=== PATIENT | female | born 1960 | race Caucasian/White ===

== ENCOUNTER 2020-06-23 11:04 | Outpatient (REF) | payer OTHER, SELFPAY | END 2020-06-23 11:05 | disposition home or self-care (01) | LOC: HO.LAB 11:04 | PROVIDERS: Visit Provider Internal Medicine | DX: Z20.828 Contact with and (suspected) exposure to other viral communicable diseases (principal) | CPT/HCPCS: 87635 ==

== ENCOUNTER 2020-07-01 21:53 | Emergency (ER) | payer OTHER, SELFPAY ==
[2020-07-01 22:06] VITALS: BP 121/74; PULSE 94; RESP 16; TEMP 37.1; O2SAT 99; BMI 24.9
--- NOTE | 2020-07-01 22:10 | ED.NAVMDI ---
HPI - Nausea/Vomiting/Diarrhea General Chief complaint: Nausea/Vomiting/Diarrhea Stated complaint: UNABLE TO EAT WITHOUT VOMITING,ETOH Time Seen by Provider: 07/01/20 22:10 Source: patient and EMS Mode of arrival: EMS Limitations: no limitations History of Present Illness MD elicited complaint: nausea, vomiting, diarrhea and abdominal pain Pertinent past history: other (chronic ETOH) Onset (ago): month(s) (2) Description of vomiting: watery Associated nausea: Yes Associated abdominal pain: Yes Location of pain: epigastric Radiation: epigastric Pain consistency: constant Severity: moderate Quality: cramping Exacerbating factors: vomiting Relieving factors: none Context: alcohol abuse Associated symptoms: myalgias, loss of appetite, malaise, nausea/vomiting, weakness, decreased urine output and anxiety Related Data Previous Rx's Medication Instructions Recorded metoprolol succinate 25 mg 25 mg PO DAILY 90 Days #90 tab 06/11/20 tablet,extended release 24 hr Allergies Allergy/AdvReac Type Severity Reaction Status Date / Time No Known Allergies Allergy Verified 07/01/20 22:09 [No Known Allergies*] Review of Systems Review of Systems: Constitutional : No Weight loss, No Fever, No Chills ENT/Mouth : No sore throat, No Rhinorrhea Eyes: No Swelling, No Redness Cardiovascular : No Chest Pain, No SOB, NoEdema Respiratory : No Cough, No Sputum, No Wheezing Gastrointestinal : Positive Nausea, Positive Vomiting, positive Diarrhea, positive abdominal Pain, No Hematochezia, No Melena Genitourinary : No Dysuria, No Urinary Frequency, No Hematuria, No Urgency Musculoskeletal : No joint pain, No Myalgias, No Joint Swelling Skin : No Skin Lesions, No rash Neuro : No Weakness, No Numbness, No Dizziness, No Headache Psych : pos Anxiety/Panic, pos Depression Heme/Lymph: No Bruising, No Lymphadenopathy Endocrine : No Polyuria, No Polydipsia All other systems reviewed and are negative. Gastrointestinal: Gastrointestinal: Reports nausea PMFSH Past Medical History Medical History Anxiety CHF (congestive heart failure) ETOH abuse Social History Social History (Updated 07/01/20 @ 22:18 by Mandi Armijo DO) Alcohol intake: current Use of substances other than those prescribed or required for medical reasons: No Advance Directives: No Advance Directives Information Provided: Yes Physical Exam Vital Signs: Vital Signs: Vital Signs Temp Pulse Resp BP Pulse Ox 07/01/20 23:43 98.9 F 80 16 108/54 L 99 07/01/20 22:06 98.8 F 94 16 121/74 99 Body Mass Index 24.9 Appearance: Alert. Oriented X3. No acute distress. Disheveled, appears intoxicated Eyes: Pupils equal, round and reactive to light. ENT: Pharynx normal. Neck: Normal inspection. Neck supple. CVS: Normal heart rate and rhythm. Pulses normal. Respiratory: No respiratory distress. Breath sounds normal. Abdomen: Soft and nontender. Skin: Skin warm and dry. Normal skin color. Normal skin turgor. Extremities: No lower extremity edema. No calf ttp Neuro: Oriented X 3. No motor deficit. No sensory deficit. Course Course Course Narrative: + ETOH also the patient refuses CT scan, unsure she wants detox at this time likely patient will not go to detox steady gait, clinically sober, refuses further workup does not want detox at this time, states she wants to go home and when she is ready she will call detox, she is up and walking tolerating PO MDM - Nausea/Vomiting/Diarrhea MDM Narrative Medical decision making narrative: 59 yo female with heavy ETOH abuse here with c/o n/v diarrhea and abdominal pain with weight loss x 2 months, unsure if she wants detox I dont want to fully stop alcohol at this time will need labs, CT scan for mass, IVF, banana bag, dispo per results and findings. Lab Data Result diagrams: 07/01/20 22:35 07/01/20 22:35 Labs: Lab Results 07/01/20 07/01/20 07/01/20 Range/Units 22:35 22:35 22:35 WBC 5.6 (4.8-10.8) X10*3/uL RBC 4.10 L (4.20-5.50) X10*6/uL Hgb 14.7 (12.0-16.0) g/dl Hct 41.9 (37-47) % MCV 102.2 H (80-98) fL MCH 35.9 H (27.0-33.0) pg MCHC 35.1 H (31.0-35.0) g/dl RDW 12.2 (11.0-16.0) % Plt Count 165 (160-400) X10*3/uL MPV 10.1 (9.4-12.3) fL Immature Gran % (Auto) 0.2 (0.0-0.4) % Neut % (Auto) 57.4 (45-73) % Lymph % (Auto) 34.3 (20-40) % [place] % (Auto) 6.5 (2-11) % Eos % (Auto) 1.1 (0-4) % Baso % (Auto) 0.5 (0-2) % Lymph # (Auto) 1.9 (1.2-4.9) X10*3/uL [place] # (Auto) 0.4 (0.1-1.2) X10*3/uL Eos # (Auto) 0.1 (0.0-0.4) X10*3/uL Baso # (Auto) 0.0 (0.0-0.2) X10*3/uL Abs Immat Gran (auto) 0.01 (0.00-0.03) X10*3/uL Absolute Neuts (auto) 3.2 (2.0-8.3) X10*3/uL Absolute Nucleated RBC 0.000 (0.0-0.012) X10*3/uL Nucleated RBC % (auto) 0.0 (0.0-0.2) /100WBC PT 12.7 (10.8-13.0) SEC INR 1.1 (0.9-1.1) APTT 26.7 (24.1-38.0) SEC Sodium 137 (135-145) mmol/L Potassium 3.4 (3.3-5.1) mmol/l Chloride 104 (96-108) mmol/L Carbon Dioxide 18 L (22-29) mmol/L Anion Gap 18 (12-20) BUN 7 L (9-16) mg/dL Creatinine 0.68 (0.5-1.4) mg/dL Estim Creat Clear Calc 82.1 Estimated GFR > 60 Random Glucose 191 H (60-115) mg/dL Calcium 8.9 (8.4-10.2) mg/dL Magnesium Total Bilirubin Direct Bilirubin AST ALT Alkaline Phosphatase Total Protein Albumin Lipase Ethyl Alcohol mg/dL 07/01/20 07/01/20 07/01/20 Range/Units 22:35 22:35 23:42 WBC (4.8-10.8) X10*3/uL RBC (4.20-5.50) X10*6/uL Hgb (12.0-16.0) g/dl Hct (37-47) % MCV (80-98) fL MCH (27.0-33.0) pg MCHC (31.0-35.0) g/dl RDW (11.0-16.0) % Plt Count (160-400) X10*3/uL MPV (9.4-12.3) fL Immature Gran % (Auto) (0.0-0.4) % Neut % (Auto) (45-73) % Lymph % (Auto) (20-40) % [place] % (Auto) (2-11) % Eos % (Auto) (0-4) % Baso % (Auto) (0-2) % Lymph # (Auto) (1.2-4.9) X10*3/uL [place] # (Auto) (0.1-1.2) X10*3/uL Eos # (Auto) (0.0-0.4) X10*3/uL Baso # (Auto) (0.0-0.2) X10*3/uL Abs Immat Gran (auto) (0.00-0.03) X10*3/uL Absolute Neuts (auto) (2.0-8.3) X10*3/uL Absolute Nucleated RBC (0.0-0.012) X10*3/uL Nucleated RBC % (auto) (0.0-0.2) /100WBC PT (10.8-13.0) SEC INR (0.9-1.1) APTT (24.1-38.0) SEC Sodium (135-145) mmol/L Potassium (3.3-5.1) mmol/l Chloride (96-108) mmol/L Carbon Dioxide (22-29) mmol/L Anion Gap (12-20) BUN (9-16) mg/dL Creatinine (0.5-1.4) mg/dL Estim Creat Clear Calc Estimated GFR Random Glucose (60-115) mg/dL Calcium (8.4-10.2) mg/dL Magnesium Cancelled Total Bilirubin Cancelled 0.8 Direct Bilirubin Cancelled 0.5 AST Cancelled 229 H ALT Cancelled 79 H Alkaline Phosphatase Cancelled 112 Total Protein Cancelled 6.1 L Albumin Cancelled 3.6 Lipase Cancelled Ethyl Alcohol 214 mg/dL 07/01/20 Range/Units 23:42 WBC (4.8-10.8) X10*3/uL RBC (4.20-5.50) X10*6/uL Hgb (12.0-16.0) g/dl Hct (37-47) % MCV (80-98) fL MCH (27.0-33.0) pg MCHC (31.0-35.0) g/dl RDW (11.0-16.0) % Plt Count (160-400) X10*3/uL MPV (9.4-12.3) fL Immature Gran % (Auto) (0.0-0.4) % Neut % (Auto) (45-73) % Lymph % (Auto) (20-40) % [place] % (Auto) (2-11) % Eos % (Auto) (0-4) % Baso % (Auto) (0-2) % Lymph # (Auto) (1.2-4.9) X10*3/uL [place] # (Auto) (0.1-1.2) X10*3/uL Eos # (Auto) (0.0-0.4) X10*3/uL Baso # (Auto) (0.0-0.2) X10*3/uL Abs Immat Gran (auto) (0.00-0.03) X10*3/uL Absolute Neuts (auto) (2.0-8.3) X10*3/uL Absolute Nucleated RBC (0.0-0.012) X10*3/uL Nucleated RBC % (auto) (0.0-0.2) /100WBC PT (10.8-13.0) SEC INR (0.9-1.1) APTT (24.1-38.0) SEC Sodium (135-145) mmol/L Potassium (3.3-5.1) mmol/l Chloride (96-108) mmol/L Carbon Dioxide (22-29) mmol/L Anion Gap (12-20) BUN (9-16) mg/dL Creatinine (0.5-1.4) mg/dL Estim Creat Clear Calc Estimated GFR Random Glucose (60-115) mg/dL Calcium (8.4-10.2) mg/dL Magnesium 2.4 Total Bilirubin Direct Bilirubin AST ALT Alkaline Phosphatase Total Protein Albumin Lipase 140 H Ethyl Alcohol mg/dL ECG Data Attestation: I personally reviewed and interpreted this ECG as follows: ECG interpretation date: 07/01/20 ECG interpretation time: 22:43 Interpretation: Rate: 80 Rhythm: NSR [place]: normal Normal P waves. Normal MED. Normal QRS complex. ST T wave : normal qTC: normal prior studies: no acute ischemia The study has been interpreted contemporaneously by me. . Discharge Plan Discharge Clinical Impression: Alcohol abuse, Elevated LFTs, Vomiting Patient Disposition: Home, Self-Care Instructions: Acute Nausea and Vomiting (ED), Abuse of Alcohol (ED) Additional Instructions: please consider going to detox Prescriptions: No Action metoprolol succinate 25 mg tablet extended release 24 hr 25 mg PO DAILY 90 Days Qty: 90 RF: 4 Referrals: Physician,Unknown [Primary Care Provider] - 2 days (call your doctor)
--- NOTE | 2020-07-01 22:12 | ECG_ITS ---
Test Reason : ABDOMINAL PAIN Blood Pressure : / mmHG Vent. Rate : 080 BPM Atrial Rate : 080 BPM P-R Int : 168 ms QRS Dur : 072 ms QT Int : 370 ms P-R-T Axes : 027 012 036 degrees QTc Int : 426 ms Normal sinus rhythm Possible Left atrial enlargement Nonspecific T wave abnormality Anterior leads Abnormal ECG When compared with ECG of 29-OCT-2019 02:26, Nonspecific T wave abnormality now evident in Anterior leads Referred By: Mandi Armijo Electronically Signed By:EZEQUIEL LOPEZ MD
[2020-07-01 22:40] LABS: MANUAL DIFF FLAG NO
--- NOTE | 2020-07-01 22:40 | PC.NURSE ---
pharmacy called to mix banana bag
[2020-07-01 22:42] LABS: Basophils Percent Auto 0.5 % (0-2); Eosinophils Absolute Auto 0.1 X10*3/uL (0.0-0.4); Eosinophils Percent Auto 1.1 % (0-4); Hematocrit 41.9 % (37-47); Hemoglobin 14.7 g/dl (12.0-16.0); Imm Gran Abs Auto 0.01 X10*3/uL (0.00-0.03); Imm Gran Pct Auto 0.2 % (0.0-0.4); Lymphocytes Absolute Auto 1.9 X10*3/uL (1.2-4.9); Lymphocytes Percent Auto 34.3 % (20-40); Mean Corpuscular HGB Conc 35.1 g/dl (31.0-35.0); Mean Corpuscular Hemoglobin 35.9 pg (27.0-33.0); Mean Corpuscular Volume 102.2 fL (80-98); Mean Platelet Volume 10.1 fL (9.4-12.3); Monocytes Absolute Auto 0.4 X10*3/uL (0.1-1.2); Monocytes Percent Auto 6.5 % (2-11); Neutrophils Absolute Auto 3.2 X10*3/uL (2.0-8.3); Neutrophils Percent Auto 57.4 % (45-73); Platelet Count 165 X10*3/uL (160-400); Red Cell Distribution Width 12.2 % (11.0-16.0); White Blood Count 5.6 X10*3/uL (4.8-10.8)
[2020-07-01] MEDS: ondansetron HCL 4 MG/2 ML VIAL IVPUSH (22:45)
[2020-07-01] MEDS: 0.9 % Sodium Chloride 1,000 ML 999 ML IVCONT (22:45)
[2020-07-01] MEDS: Magnesium Sulfate/H2O 2 GM/50 ML PIGGYBACK IV (22:45)
[2020-07-01 22:55] LABS: INTERNATIONAL NORM RATIO 1.1 (0.9-1.1); Prothrombin Time 12.7 SEC (10.8-13.0)
[2020-07-01 22:58] LABS: Partial Thromboplastin Time 26.7 SEC (24.1-38.0)
[2020-07-01 23:08] LABS: Ethanol 214 mg/dL
[2020-07-01 23:09] LABS: Anion Gap 18 (12-20); Blood Urea Nitrogen 7 mg/dL (9-16); Calcium 8.9 mg/dL (8.4-10.2); Carbon Dioxide 18 mmol/L (22-29); Chloride 104 mmol/L (96-108); Creatinine Clr Calc Pharmacy 82.1; Estimated Glomerular Filt Rate > 60; Glucose Random 191 mg/dL (60-115); Potassium 3.4 mmol/l (3.3-5.1); Sodium 137 mmol/L (135-145)
[2020-07-01 23:43] VITALS: BP 108/54; PULSE 80; RESP 16; TEMP 37.2; O2SAT 99
[2020-07-02 00:25] LABS: Alanine Aminotransferase 79 U/L (0-31); Albumin Level 3.6 g/dL (3.5-5.0); Alkaline Phosphatase 112 U/L (39-117); Aspartate Amino Transferase 229 U/L (5-31); Bilirubin Direct 0.5 mg/dL (0.0-0.5); Bilirubin Total 0.8 mg/dL (0.0-1.0); Total Protein 6.1 g/dL (6.5-8.0)
[2020-07-02 00:27] LABS: Magnesium 2.4 mg/dL (1.6-2.6)
[2020-07-02 00:55] LABS: Lipase 140 U/L (8-78)
== END 2020-07-02 01:24 | disposition home or self-care (01) ==
PROVIDERS: Emergency Provider Emergency Medicine
DX: F10.129 Alcohol abuse with intoxication, unspecified (principal); Y90.7 Blood alcohol level of 200-239 mg/100 ml; R79.89 Other specified abnormal findings of blood chemistry; Z79.899 Other long term (current) drug therapy
CPT/HCPCS: 36415; 80048; 80076; 80320; 83690; 83735; 85025; 85610; 85730; 93005; 96365; 96366; 96375; 99284; J2405; J3411; J3475

== ENCOUNTER 2020-07-03 17:25 | Emergency (ER) | payer OTHER, SELFPAY ==
[2020-07-03 17:43] VITALS: BP 125/77; PULSE 99; RESP 13; TEMP 36.8; O2SAT 97; BMI 26.2
[2020-07-03 17:51] VITALS: BP 125/77; PULSE 104; PULSE 99; RESP 17; TEMP 36.8; O2SAT 97
--- NOTE | 2020-07-03 17:52 | ECG_ITS ---
Test Reason : CHEST PAIN Blood Pressure : / mmHG Vent. Rate : 089 BPM Atrial Rate : 089 BPM P-R Int : 160 ms QRS Dur : 066 ms QT Int : 386 ms P-R-T Axes : 045 024 035 degrees QTc Int : 469 ms Normal sinus rhythm Nonspecific ST abnormality Abnormal ECG When compared with ECG of 01-JUL-2020 22:36, No significant changes seen Referred By: Sergio Rodgers Electronically Signed By:EZEQUIEL LOPEZ MD
--- NOTE | 2020-07-03 17:52 | XR_ITS ---
EXAMINATION: XR CHEST CLINICAL INFORMATION: Chest pain COMPARISON: 12/18/2018 TECHNIQUE: Frontal view of the chest was obtained. FINDINGS: No significant abnormality is noted involving the heart, lungs, mediastinum, bony thorax or soft tissues. XR/XR chest 1V IMPRESSION: Unremarkable examination.
--- NOTE | 2020-07-03 17:52 | CT_ITS ---
EXAMINATION: CT ABDOMEN AND PELVIS WITH CONTRAST CLINICAL INFORMATION: Abdominal pain. COMPARISON: CT scan abdomen pelvis 10/29/2019 TECHNIQUE: Multidetector volumetric images were obtained from the superior aspect of the liver through the pubic symphysis following administration 85 mL ofOmnipaque 350 intravenous contrast. Sagittal and coronal reformatted images were obtained on the technologist's workstation. Oral contrast: No This CT examination was performed using dose optimization techniques as appropriate, variously including the following: *Automated exposure control *Adjustment of mA and/or kV according to patient size (this includes techniques or standardized protocols for targeted exams where dose is matched to indication/reason for exam; i.e. extremities or head) *Use of iterative reconstruction technique DLP: 410 mGy-cm FINDINGS: LUNG BASES: The visualized lung bases are unremarkable. LIVER, GALLBLADDER, AND BILIARY TREE: Mild low-attenuation of liver parenchyma due to fatty change. No focal liver lesion. No intrahepatic bile duct dilatation. The gallbladder is contracted. No edema around the gallbladder. The extrahepatic CBD measures 7 mm. No calcified stone in the gallbladder or bile ducts. PANCREAS: Unremarkable. SPLEEN: Unremarkable. ADRENAL GLANDS: Unremarkable. KIDNEYS AND URETERS: The kidneys are normal in size, shape, and attenuation. No hydronephrosis, hydroureter, or calculi seen. No perinephric stranding. BLADDER: Unremarkable. GASTROINTESTINAL TRACT: The small and large bowel are unremarkable. The appendix is unremarkable. ABDOMINAL WALL: No significant hernia is appreciated. LYMPH NODES: Normal. VASCULAR: Unremarkable. PELVIC VISCERA: Status post hysterectomy. OSSEOUS STRUCTURES: Unremarkable. CT/CT abdomen pelvis w con IMPRESSION: No acute abnormality the abdomen or pelvis.
--- NOTE | 2020-07-03 17:55 | ED.ABDPAIN ---
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 she has been having upper abdominal pain with nausea vomiting for the past couple of weeks for which she was here 2 days ago. States she felt better and nausea vomiting restarted and about 1 hour ago had an episode of epigastric / left-sided chest pain that was brief lasting several minutes and described as sharp stabbing. She denies any LOC or URI symptoms. Initially during triage she states that she has been sober for several years now but later in my discussion she admitted to drinking wine today which she states that drinking wine does make her nauseated but eating other foods will. No lower extremity swelling or shortness of breath. No cough. No recent travel or sick contacts. MD elicited complaint: abdominal pain Pertinent past history: gastritis Pain Consistency: intermittent Location: epigastric Quality: cramping Migration to: no migration Exacerbating factors: eating Relieving factors: nothing Associated symptoms: nausea and vomiting Related Data Previous Rx's Medication Instructions Recorded metoprolol succinate 25 mg 25 mg PO DAILY 90 Days #90 tab 06/11/20 tablet,extended release 24 hr chlordiazepoxide HCl 25 mg PO Q8H PRN #10 cap 07/03/20 omeprazole magnesium [Prilosec OTC] 20 mg PO DAILY #14 tab 07/03/20 ondansetron HCl [Zofran] 4 mg PO Q8H PRN #10 tab 07/03/20 Allergies Allergy/AdvReac Type Severity Reaction Status Date / Time No Known Allergies Allergy Verified 07/01/20 22:09 [No Known Allergies*] Review of Systems Review of Systems Constitutional: No Weight loss, No Fever, No Chills, No Night Sweats, No Fatigue, No Malaise ENT/Mouth: No Hearing loss, No Ear Pain, No Nasal Congestion, No Sinus Pain, No Hoarseness, No sore throat, No Rhinorrhea, No Swallowing Difficulty Eyes: No Eye Pain, No Swelling, No Redness, No Foreign Body, No Discharge, No Vision Changes Cardiovascular: + Chest Pain, No SOB, No Dyspnea on Exertion, No Orthopnea, No Edema, No Palpitations Respiratory: No Cough, No Sputum, No Wheezing, No Smoke Exposure, No Dyspnea Gastrointestinal: As noyted per HPI,No Diarrhea, No Constipation, No Hematochezia, No Melena , states she had a formed stool this morning that was brown color. Genitourinary: no irregular bleeding, No Dysuria, No Urinary Frequency, No Hematuria, No Urinary Incontinence, No Urgency, No Flank Pain, No Urinary Flow Changes, No Hesitancy Musculoskeletal: No joint pain, No Myalgias, No Joint Swelling Skin: No Skin Lesions, No rash Neuro: No Weakness, No Numbness, No Paresthesias, No Loss of Consciousness, No Dizziness, No Headache Psych: No Anxiety/Panic, No Depression, No SI/HI/AH/VH, No Social Issues Heme/Lymph: No Bruising, No Bleeding,No Lymphadenopathy Endocrine: No Polyuria, No Polydipsia, No Temperature Intolerance Yes all other systems are reviewed and are negative Physical Exam Vital Signs: Vital Signs: Vital Signs Temp Pulse Resp BP Pulse Ox 07/03/20 17:51 98.2 F 99 17 125/77 97 07/03/20 17:43 98.2 F 99 13 125/77 97 Body Mass Index 26.2 Reviewed Const: General: cooperative and healthy appearing; No acute distress or intoxicated appearing Nutritional Appearance: average body habitus Orientation/consciousness: patient oriented x3 HENMT: Head: Yes normal to inspection Ears: hearing grossly normal bilaterally Eyes: General: appearance normal, both eyes and all related structures Visual Dey: normal visual dey by confrontation Neck: Neck: Yes normal visual inspection and No tender Thyroid: Thyroid normal Chest: Chest palpation & inspection: normal inspection of the chest Resp: Effort & Inspection: normal respiratory effort Auscultation: clear to auscultation bilaterally Cardio: Jugular venous distension: no JVD Rhythm: regular rhythm Heart sounds: S1 normal heart sound present GI: Inspection: Yes normal to inspection Percussion: Yes normal to percussion Auscultation: normal bowel sounds : General: Yes no CVA tenderness Back/Spine/Pelvis: Back: no CVA tenderness Skin: General skin exam: no rashes or lesions noted Neuro: General: patient oriented x3 Extrem: General: Yes normal to inspection Psych: Appearance: disheveled Course Course Course Narrative: 180 In review 5-year-old female with above history presenting with epigastric pain with associated nausea vomiting and episode of chest pain roughly 1 hour prior to arrival. Does have history of alcohol abuse / alcoholic gastritis I suspect component of this. Does not appear intoxicated does admit to drinking earlier in the day. Will need labs, EKG and CT of abdomen rule out pancreatitis/obstructive pathology. Will treat with IV fluids, antiemetics and p.r.n. for withdrawal symptoms at this time she does not have any withdrawal symptoms. Reevaluation(s) Reevaluation #1: labs overall stable. Has been resting comfortably. Feels much better after IV fluids and 1 dose of Zofran no further nausea vomiting for complaint of pain here. Labs essentially at baseline abdominal CT / chest x-ray without acute findings. AP consistent with atypical chest pain/ alcoholic gastritis with history of EtOH abuse was more forthcoming on re-evaluation. States she is trying to get into detox called and was advised to call later on today that may have a bed available the this evening. She states she has been to detox before she does not need any further assistance at this time. 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 Will discharge home with short course PPI, Zofran and Librium. Clear return follow-up instructions provided. Agreeable plan stable for discharge. MDM - Abdominal Pain Differential Diagnosis Differential diagnosis: Likely abdominal pain, diverticulitis, gastroenteritis, gastritis, pancreatitis and peptic ulcer disease; Unlikely aortic dissection, acute appendicitis, bowel perforation, calculus of kidney, constipation, endometriosis, mesenteric ischemia, ovarian cyst, renal colic and small bowel obstruction Medical Records Attestation: I reviewed the patient's medical records. Lab Data Attestation: I reviewed the patient's lab results. Result diagrams: 07/03/20 18:51 07/03/20 18:51 Labs: Lab Results 07/03/20 07/03/20 07/03/20 Range/Units 18:51 18:51 18:51 WBC 4.0 L (4.8-10.8) X10*3/uL RBC 4.12 L (4.20-5.50) X10*6/uL Hgb 14.6 (12.0-16.0) g/dl Hct 42.3 (37-47) % MCV 102.7 H (80-98) fL MCH 35.4 H (27.0-33.0) pg MCHC 34.5 (31.0-35.0) g/dl RDW 12.0 (11.0-16.0) % Plt Count 129 L (160-400) X10*3/uL MPV 10.0 (9.4-12.3) fL Immature Gran % (Auto) 0.2 (0.0-0.4) % Neut % (Auto) 71.8 (45-73) % Lymph % (Auto) 20.3 (20-40) % [place] % (Auto) 6.2 (2-11) % Eos % (Auto) 0.5 (0-4) % Baso % (Auto) 1.0 (0-2) % Lymph # (Auto) 0.8 L (1.2-4.9) X10*3/uL [place] # (Auto) 0.3 (0.1-1.2) X10*3/uL Eos # (Auto) 0.0 (0.0-0.4) X10*3/uL Baso # (Auto) 0.0 (0.0-0.2) X10*3/uL Abs Immat Gran (auto) 0.01 (0.00-0.03) X10*3/uL Absolute Neuts (auto) 2.9 (2.0-8.3) X10*3/uL Absolute Nucleated RBC 0.000 (0.0-0.012) X10*3/uL Nucleated RBC % (auto) 0.0 (0.0-0.2) /100WBC PT 12.8 (10.8-13.0) SEC INR 1.1 (0.9-1.1) APTT 35.6 D (24.1-38.0) SEC Sodium (135-145) mmol/L Potassium (3.3-5.1) mmol/l Chloride (96-108) mmol/L Carbon Dioxide (22-29) mmol/L Anion Gap (12-20) BUN (9-16) mg/dL Creatinine (0.5-1.4) mg/dL Estim Creat Clear Calc Estimated GFR Random Glucose (60-115) mg/dL Calcium (8.4-10.2) mg/dL Magnesium (1.6-2.6) mg/dL Total Bilirubin (0.0-1.0) mg/dL AST (5-31) U/L ALT (0-31) U/L Alkaline Phosphatase (39-117) U/L Troponin I High Sens (<3.5-17.0) ng/L B-Natriuretic Peptide 58 (<100) pg/mL Total Protein (6.5-8.0) g/dL Albumin (3.5-5.0) g/dL Lipase (8-78) U/L Ethyl Alcohol mg/dL 07/03/20 07/03/20 07/03/20 Range/Units 18:51 18:51 18:51 WBC (4.8-10.8) X10*3/uL RBC (4.20-5.50) X10*6/uL Hgb (12.0-16.0) g/dl Hct (37-47) % MCV (80-98) fL MCH (27.0-33.0) pg MCHC (31.0-35.0) g/dl RDW (11.0-16.0) % Plt Count (160-400) X10*3/uL MPV (9.4-12.3) fL Immature Gran % (Auto) (0.0-0.4) % Neut % (Auto) (45-73) % Lymph % (Auto) (20-40) % [place] % (Auto) (2-11) % Eos % (Auto) (0-4) % Baso % (Auto) (0-2) % Lymph # (Auto) (1.2-4.9) X10*3/uL [place] # (Auto) (0.1-1.2) X10*3/uL Eos # (Auto) (0.0-0.4) X10*3/uL Baso # (Auto) (0.0-0.2) X10*3/uL Abs Immat Gran (auto) (0.00-0.03) X10*3/uL Absolute Neuts (auto) (2.0-8.3) X10*3/uL Absolute Nucleated RBC (0.0-0.012) X10*3/uL Nucleated RBC % (auto) (0.0-0.2) /100WBC PT (10.8-13.0) SEC INR (0.9-1.1) APTT (24.1-38.0) SEC Sodium 141 (135-145) mmol/L Potassium 3.5 (3.3-5.1) mmol/l Chloride 106 (96-108) mmol/L Carbon Dioxide 21 L (22-29) mmol/L Anion Gap 18 (12-20) BUN 5 L (9-16) mg/dL Creatinine 0.68 (0.5-1.4) mg/dL Estim Creat Clear Calc 80.9 Estimated GFR > 60 Random Glucose 107 D (60-115) mg/dL Calcium 9.0 (8.4-10.2) mg/dL Magnesium (1.6-2.6) mg/dL Total Bilirubin 1.3 H (0.0-1.0) mg/dL AST 146 H (5-31) U/L ALT 77 H (0-31) U/L Alkaline Phosphatase 123 H (39-117) U/L Troponin I High Sens < 3.5 (<3.5-17.0) ng/L B-Natriuretic Peptide (<100) pg/mL Total Protein 7.5 D (6.5-8.0) g/dL Albumin 4.4 D (3.5-5.0) g/dL Lipase (8-78) U/L Ethyl Alcohol 12 mg/dL 07/03/2007/03/ Range/Units 18:51 18:51 WBC (4.8-10.8) X10*3/uL RBC (4.20-5.50) X10*6/uL Hgb (12.0-16.0) g/dl Hct (37-47) % MCV (80-98) fL MCH (27.0-33.0) pg MCHC (31.0-35.0) g/dl RDW (11.0-16.0) % Plt Count (160-400) X10*3/uL MPV (9.4-12.3) fL Immature Gran % (Auto) (0.0-0.4) % Neut % (Auto) (45-73) % Lymph % (Auto) (20-40) % [place] % (Auto) (2-11) % Eos % (Auto) (0-4) % Baso % (Auto) (0-2) % Lymph # (Auto) (1.2-4.9) X10*3/uL [place] # (Auto) (0.1-1.2) X10*3/uL Eos # (Auto) (0.0-0.4) X10*3/uL Baso # (Auto) (0.0-0.2) X10*3/uL Abs Immat Gran (auto) (0.00-0.03) X10*3/uL Absolute Neuts (auto) (2.0-8.3) X10*3/uL Absolute Nucleated RBC (0.0-0.012) X10*3/uL Nucleated RBC % (auto) (0.0-0.2) /100WBC PT (10.8-13.0) SEC INR (0.9-1.1) APTT (24.1-38.0) SEC Sodium (135-145) mmol/L Potassium (3.3-5.1) mmol/l Chloride (96-108) mmol/L Carbon Dioxide (22-29) mmol/L Anion Gap (12-20) BUN (9-16) mg/dL Creatinine (0.5-1.4) mg/dL Estim Creat Clear Calc Estimated GFR Random Glucose (60-115) mg/dL Calcium (8.4-10.2) mg/dL Magnesium 1.7 (1.6-2.6) mg/dL Total Bilirubin (0.0-1.0) mg/dL AST (5-31) U/L ALT (0-31) U/L Alkaline Phosphatase (39-117) U/L Troponin I High Sens (<3.5-17.0) ng/L B-Natriuretic Peptide (<100) pg/mL Total Protein (6.5-8.0) g/dL Albumin (3.5-5.0) g/dL Lipase 73 (8-78) U/L Ethyl Alcohol mg/dL Discharge Plan Discharge Clinical Impression: Atypical chest pain, Alcohol abuse Gastritis Qualifiers: Gastritis type: alcoholic Chronicity: chronic Gastritis bleeding: without bleeding Qualified Code(s): K29.20 - Alcoholic gastritis without bleeding Patient Disposition: Home, Self-Care Instructions: Chest Pain (ED), Gastritis (ED), Abuse of Alcohol (ED), Alcohol Use Disorder (ED) Additional Instructions: please go directly to detox as discussed Stop drinking alcohol regularly as an cause serious harm to health including but not limited to Take medication prescribed Return if any concerns or worsening symptoms otherwise follow up as instructed Thank you Prescriptions: New ondansetron HCl [Zofran] 4 mg tablet 4 mg PO Q8H PRN (Reason: nausea and vomiting) Qty: 10 RF: 0 omeprazole magnesium [Prilosec OTC] 20 mg tablet,delayed release (DR/EC) 20 mg PO DAILY Qty: 14 RF: 0 chlordiazepoxide HCl 25 mg capsule 25 mg PO Q8H PRN (Reason: anxiety) Qty: 10 RF: 0 No Action metoprolol succinate 25 mg tablet extended release 24 hr 25 mg PO DAILY 90 Days Qty: 90 RF: 4 Referrals: Le Haddad DO [Primary Care Provider] - 2 days [facility] Past Medical History Attestation statement: The following information was validated with the patient. Medical History Anxiety CHF (congestive heart failure) ETOH abuse Social History Social History (Updated 07/01/20 @ 22:18 by Mandi Armijo DO) Alcohol intake: current Alcohol intake frequency: 3 or more drinks per day Alcohol type: wine Smoked in Last 30 Days: No Use of substances other than those prescribed or required for medical reasons: No Substance Use Type: Unknown Advance Directives: No Advance Directives Information Provided: Yes
[2020-07-03 19:03] LABS: Eosinophils Percent Auto 0.5 % (0-4); Hematocrit 42.3 % (37-47); Hemoglobin 14.6 g/dl (12.0-16.0); Imm Gran Abs Auto 0.01 X10*3/uL (0.00-0.03); Imm Gran Pct Auto 0.2 % (0.0-0.4); Lymphocytes Absolute Auto 0.8 X10*3/uL (1.2-4.9); Lymphocytes Percent Auto 20.3 % (20-40); MANUAL DIFF FLAG NO; Mean Corpuscular HGB Conc 34.5 g/dl (31.0-35.0); Mean Corpuscular Hemoglobin 35.4 pg (27.0-33.0); Mean Corpuscular Volume 102.7 fL (80-98); Monocytes Absolute Auto 0.3 X10*3/uL (0.1-1.2); Monocytes Percent Auto 6.2 % (2-11); Neutrophils Absolute Auto 2.9 X10*3/uL (2.0-8.3); Neutrophils Percent Auto 71.8 % (45-73); Platelet Count 129 X10*3/uL (160-400); Red Blood Count 4.12 X10*6/uL (4.20-5.50)
[2020-07-03 19:10] LABS: INTERNATIONAL NORM RATIO 1.1 (0.9-1.1); Prothrombin Time 12.8 SEC (10.8-13.0)
[2020-07-03 19:12] LABS: Partial Thromboplastin Time 35.6 SEC (24.1-38.0)
[2020-07-03] MEDS: ondansetron HCL 4 MG/2 ML VIAL IVPUSH (19:33)
[2020-07-03 19:39] LABS: Ethanol 12 mg/dL; Magnesium 1.7 mg/dL (1.6-2.6)
[2020-07-03 19:45] LABS: B Type Natriuretic Peptide 58 pg/mL (<100)
[2020-07-03 19:46] LABS: Lipase 73 U/L (8-78)
[2020-07-03 19:50] LABS: Alanine Aminotransferase 77 U/L (0-31); Albumin Level 4.4 g/dL (3.5-5.0); Alkaline Phosphatase 123 U/L (39-117); Anion Gap 18 (12-20); Aspartate Amino Transferase 146 U/L (5-31); Bilirubin Total 1.3 mg/dL (0.0-1.0); Blood Urea Nitrogen 5 mg/dL (9-16); Carbon Dioxide 21 mmol/L (22-29); Chloride 106 mmol/L (96-108); Creatinine Clr Calc Pharmacy 80.9; Estimated Glomerular Filt Rate > 60; Glucose Random 107 mg/dL (60-115); Potassium 3.5 mmol/l (3.3-5.1); Sodium 141 mmol/L (135-145); Total Protein 7.5 g/dL (6.5-8.0)
[2020-07-03 19:52] LABS: Troponin-I High Sensitivity < 3.5 ng/L (<3.5-17.0)
[2020-07-03] MEDS: iohexoL 350 MG/ML 100 ML INFUS..BTL IV (20:35)
== END 2020-07-03 22:02 | disposition home or self-care (01) ==
PROVIDERS: Nurse Practitioner Primary Care; Emergency Provider Internal Medicine; PCP Family Medicine
DX: K29.20 Alcoholic gastritis without bleeding (principal); R10.13 Epigastric pain; F10.10 Alcohol abuse, uncomplicated; Y90.0 Blood alcohol level of less than 20 mg/100 ml; Z79.899 Other long term (current) drug therapy; Z71.41 Alcohol abuse counseling and surveillance of alcoholic
CPT/HCPCS: 36415; 71045; 74177; 80053; 80320; 83690; 83735; 83880; 84484; 85025; 85610; 85730; 93005; 96374; 99284; J2405; Q9967

== ENCOUNTER → 2020-09-29 13:59 | Outpatient (BNVA) | payer OTHER, SELFPAY | PROVIDERS: PCP Family Medicine; Visit Provider Internal Medicine Gastroenterology | DX: K20.90 Esophagitis, unspecified without bleeding (principal) | CPT/HCPCS: Q3014 ==

== ENCOUNTER → 2021-01-22 09:53 | Outpatient (BNVA) | payer OTHER, SELFPAY | PROVIDERS: PCP Family Medicine; Visit Provider Internal Medicine Gastroenterology | CPT/HCPCS: Q3014 ==

== ENCOUNTER 2022-03-22 10:49 | Outpatient (REF) | payer OTHER, SELFPAY ==
--- NOTE | ~2022-03-22 | MM_ITS ---
EXAMINATION: MM SCREENING DIGITAL BREAST TOMOSYNTHESIS, BILATERAL CLINICAL INFORMATION: Screening. Asymptomatic. The lifetime risk of breast cancer based on the Tyrer-Cuzick Model is 8%. COMPARISON: Mammography: May 24, 2018, May 28, 2019, and studies dating back to January 23, 2014 TECHNIQUE: Digital breast tomosynthesis is performed in both the craniocaudal and mediolateral oblique views along with computer-aided detection (CAD). Synthesized 2D images are generated from the tomosynthesis. FINDINGS: There are scattered areas of fibroglandular density (ACR BI-RADS breast composition Category b). There are no significant masses, abnormal calcifications, or other abnormalities. MM/MM tomosynthesis screening BI IMPRESSION: There are no significant changes from prior study. ASSESSMENT: BI-RADS 1: Negative RECOMMENDATION: Routine annual mammography screening. This patient's information was entered into a reminder system with a target due date for their next mammogram.
== END 2022-03-22 10:50 | disposition home or self-care (01) ==
LOC: HO.MAMMO 10:49
PROVIDERS: Visit Provider Family Medicine
DX: Z12.31 Encounter for screening mammogram for malignant neoplasm of breast (principal)
CPT/HCPCS: 77063; 77067

== ENCOUNTER → 2022-04-05 13:06 | Outpatient (BNVA) | payer OTHER, SELFPAY | PROVIDERS: PCP Family Medicine; Visit Provider Physician Assistant | DX: M54.16 Radiculopathy, lumbar region (principal) | CPT/HCPCS: 99202 ==

== ENCOUNTER 2022-05-01 21:42 | Inpatient (IN) | payer OTHER, SELFPAY ==
--- NOTE | ~2022-05-01 | CT_ITS ---
EXAMINATION: CT ABDOMEN AND PELVIS WITHOUT CONTRAST CLINICAL INFORMATION: Upper abdominal pain, question pancreatitis COMPARISON: 07/03/2020 TECHNIQUE: Multidetector volumetric imaging was performed from the superior aspect of the liver through the pubic symphysis. Sagittal and coronal reformatted images were obtained on the technologist's workstation. This CT examination was performed using dose optimization techniques as appropriate, variously including the following: *Automated exposure control *Adjustment of mA and/or kV according to patient size (this includes techniques or standardized protocols for targeted exams where dose is matched to indication/reason for exam; i.e. extremities or head) *Use of iterative reconstruction technique DLP: 447 mGy-cm FINDINGS: LUNG BASES: The visualized lung bases are unremarkable. LIVER, GALLBLADDER, AND BILIARY TREE: The liver demonstrates mild hypoattenuation suspicious for steatosis. No focal hepatic lesion or biliary ductal dilatation is present. The gallbladder is unremarkable with no evidence of radiopaque gallstones, gallbladder wall thickening, or obvious pericholecystic inflammatory changes. PANCREAS: Unremarkable. SPLEEN: Unremarkable. ADRENAL GLANDS: Unremarkable. KIDNEYS AND URETERS: The kidneys are normal in size, shape, and attenuation. No hydronephrosis, hydroureter, or calculi seen. No perinephric stranding. BLADDER: Unremarkable. GASTROINTESTINAL TRACT: Small hiatal hernia is present. Assessment for wall thickening throughout the colon is limited due to luminal collapse, though no significant pericolonic stranding is seen to strongly suggest a colitis. The appendix is unremarkable. No free fluid or free air is seen. ABDOMINAL WALL: No significant hernia is appreciated. LYMPH NODES: Normal. VASCULAR: Mild atherosclerotic calcification. PELVIC VISCERA: Status post hysterectomy. OSSEOUS STRUCTURES: Mild scattered endplate osteophytes are noted in the spine. CT/CT abdomen pelvis wo con IMPRESSION: No acute findings identified in the abdomen/pelvis. No evidence of pancreatitis. Small hiatal hernia.
--- NOTE | ~2022-05-01 | XR_ITS ---
EXAMINATION: XR CHEST CLINICAL INFORMATION: Chest pain COMPARISON: Chest x-ray 07/03/2020 TECHNIQUE: Frontal view of the chest was obtained. FINDINGS: The lungs are clear. No airspace consolidation, pleural effusion, or pneumothorax. The cardiomediastinal silhouette is within normal limits. No acute osseous injury. XR/XR chest 1V IMPRESSION: No acute pulmonary process.
[2022-05-01 21:51] VITALS: BP 174/99; BP 193/91; PULSE 71; PULSE 88; RESP 18; O2SAT 98; O2SAT 99; BMI 24.0
--- NOTE | 2022-05-01 21:59 | ECG_ITS ---
Test Reason : CHEST PAIN Blood Pressure : / mmHG Vent. Rate : 100 BPM Atrial Rate : 100 BPM P-R Int : 132 ms QRS Dur : 066 ms QT Int : 338 ms P-R-T Axes : 070 029 043 degrees QTc Int : 436 ms Normal sinus rhythm Nonspecific ST abnormality Abnormal ECG When compared with ECG of 03-JUL-2020 20:51, Criteria for Anterior infarct are no longer Present Referred By: Generic ED Physician Electronically Signed By:CARRIE OGLESBY
[2022-05-01 22:01] VITALS: BP 193/91; PULSE 80; PULSE 82; RESP 20; O2SAT 99
--- NOTE | 2022-05-01 22:18 | ED.ABDPAIN ---
HPI - Abdominal Pain General Chief Complaint: Chest Pain Stated Complaint: Vomiting Time Seen by Provider: 05/01/22 22:17 Source: patient Mode of arrival: EMS Limitations: no limitations History of Present Illness HPI narrative: Patient is 61 years old alcoholic been complaining of upper abdominal pain for last 2 weeks with multiple times vomiting worse today also had few loose bowel movements patient never had similar pain in the past no fever no chills no urinary complaints no shortness of breath patient drinks a bottle of wine a day last drink was yesterday no history of DTs in the past Related Data Home Medications Medication Instructions Recorded Confirmed cyanocobalamin (vitamin B-12) 1,000 mcg PO DAILY 09/29/20 09/29/20 1,000 mcg tablet folic acid 1 mg tablet 1 mg PO DAILY 09/29/20 09/29/20 hydroxyzine pamoate 50 mg capsule 50 mg PO BID PRN anxiety 09/29/20 09/29/20 thiamine HCl (vitamin B1) 100 mg 100 mg PO DAILY 09/29/20 09/29/20 tablet venlafaxine 75 mg capsule,extended 75 mg PO DAILY 09/29/20 09/29/20 release 24 hr Previous Rx's Medication Instructions Recorded metoprolol succinate 25 mg 25 mg PO DAILY 90 days #90 tabs 06/11/20 tablet,extended release 24 hr chlordiazepoxide HCl 25 mg capsule 25 mg PO Q8H PRN anxiety #10 caps 07/03/20 omeprazole magnesium 20 mg 20 mg PO DAILY #14 tabs 07/03/20 tablet,delayed release (Prilosec OTC) ondansetron HCl 4 mg tablet 4 mg PO Q8H PRN nausea and 07/03/20 (Zofran) vomiting #10 tabs guaifenesin 600 mg tablet, 600 mg PO BID #60 tabs 01/22/21 extended release 12 hr (Mucinex) sucralfate 100 mg/mL oral 10 ml PO BID #420 mL 01/22/21 suspension (Carafate) pantoprazole 40 mg tablet,delayed 40 mg PO BID #60 tabs 04/21/21 release albuterol sulfate 90 mcg/actuation 1 puff PO QID #18 grams 07/22/21 aerosol inhaler (Ventolin HFA) ondansetron 4 mg disintegrating 4 mg PO Q8H PRN for 08/03/21 tablet nausea/vomiting #60 tabs Allergies Allergy/AdvReac Type Severity Reaction Status Date / Time No Known Allergies Allergy Verified 01/22/21 09:53 [No Known Allergies*] Review of Systems Review of Systems Yes all other systems are reviewed and are negative [facility] Past Medical History Medical History Anxiety CHF (congestive heart failure) ETOH abuse Multinodular thyroid Surgical History History of esophagogastroduodenoscopy (EGD) Hx of colonoscopy Hx of hysterectomy Family History Family History Mother Cancer Father No problems noted. Social History Social History Household Members: Friend(s) Alcohol intake: current Alcohol intake frequency: 3 or more drinks per day Alcohol type: wine Patient Tobacco Use Status: Never used Tobacco Use of substances other than those prescribed or required for medical reasons: No Substance Use Type: Unknown Advance Directives: Yes Advance Directives on File: Yes Advance Directives Date on File: 06/26/17 Patient : No Current occupational status: disabled Physical Exam ED Vital Signs: Vital Signs - 24 hr 05/01/22 21:51 05/01/22 22:01 05/02/22 00:19 Pulse Rate 71 80 89 Respiratory Rate 18 20 18 Blood Pressure 193/91 H 193/91 H 195/98 H Pulse Oximetry 98 99 100 Oxygen Delivery Method Room Air Room Air BMI result Body Mass Index 24.0 Appearance: Alert. Oriented X3. In moderate distress Eyes: PERRLA, No Nystagmus ENT: Pharynx normal. Oral Mucosa moist Neck: Normal inspection. Neck supple. CVS: Normal heart rate and rhythm. Pulses normal. Respiratory: No respiratory distress. Equal air entry bilateral, no wheezing/rales/rhonchi Abdomen: Soft tender to touch and epigastric mid abdomen area with guarding no rebound tenderness r. Bowel sounds are present, no mass palpable, no CVA tenderness Skin: Skin warm and dry. Normal skin color. Normal skin turgor. Extremities: No lower extremity edema. No calf tenderness Neuro: Oriented X 3. No motor deficit. MDM - Abdominal Pain MDM Narrative Medical decision making narrative: Patient intractable vomiting with chronic alcohol abuse in alcohol withdrawal CT scan abdomen is negative will admit patient for alcohol withdrawal intractable vomiting with alcoholic ketoacidosis with lactic acidosis secondary to alcohol use will admit patient for IV hydration and symptomatic treatment for withdrawal using phenobarb and Versed, lactic acidosis type B not from sepsis after hydration repeat lactic acid was 1.8 Differential Diagnosis Differential diagnosis: Likely abdominal pain, gastritis and pancreatitis Lab Data Attestation: I reviewed the patient's lab results. Result diagrams: 05/01/22 22:26 05/02/22 01:01 Labs: Lab Results 05/01/22 05/01/22 05/01/22 Range/Units 22:26 22: 22:26 WBC 7.4 (4.8-10.8) X10*3/uL RBC 4.79 (4.20-5.50) X10*6/uL Hgb 15.8 (12.0-16.0) g/dl Hct 44.5 (37.0-47.0) % MCV 92.9 (80.0-98.0) fL MCH 33.0 (27.0-33.0) pg MCHC 35.5 H (31.0-35.0) g/dl RDW 12.8 (11.0-16.0) % Plt Count 227 (160-400) X10*3/uL MPV 10.0 (9.4-12.3) fL Immature Gran % (Auto) 0.8 H (0.0-0.4) % Neut % (Auto) 79.8 H (45-73) % Lymph % (Auto) 12.0 L (20-40) % [place] % (Auto) 6.6 (2-11) % Eos % (Auto) 0.0 (0-4) % Baso % (Auto) 0.8 (0-2) % Lymph # (Auto) 0.9 L (1.2-4.9) X10*3/uL [place] # (Auto) 0.5 (0.1-1.2) X10*3/uL Eos # (Auto) 0.0 (0.0-0.4) X10*3/uL Baso # (Auto) 0.1 (0.0-0.2) X10*3/uL Abs Immat Gran (auto) 0.06 H (0.00-0.03) X10*3/uL Absolute Neuts (auto) 5.9 (2.0-8.3) x10*3/uL Absolute Nucleated RBC 0.000 (0.0-0.012) X10*3/uL Nucleated RBC % (auto) 0.0 (0.0-0.2) /100WBC D-Dimer High Sensitivty NG/ML Sodium (135-145) mmol/L Potassium (3.3-5.1) mmol/L Chloride (96-108) mmol/L Carbon Dioxide (22-29) mmol/L Anion Gap (12-20) BUN (9-16) mg/dL Creatinine (0.5-1.4) mg/dL Estim Creat Clear Calc Estimated GFR Random Glucose (60-115) mg/dL Lactic Acid 4.0 H* (0.5-2.0) mmol/L Lactic Acid F/U @ 2Hr (0.5-2.0) mmol/L Calcium (8.4-10.2) mg/dL Magnesium (1.6-2.6) mg/dL Total Bilirubin (0.0-1.0) mg/dL Direct Bilirubin (0.0-0.5) mg/dL AST (5-31) U/L ALT (0-31) U/L Alkaline Phosphatase (39-117) U/L Troponin I High Sens 4.5 (<3.5-17.0) ng/L Total Protein (6.5-8.0) g/dL Albumin (3.5-5.0) g/dL Lipase (8-78) U/L Ethyl Alcohol mg/dL COVID-19 ([facility]) (Negative) COVID-19 Clin Com 05/01/22 05/01/22 05/02/22 Range/Units 22:26 22:27 01:01 WBC (4.8-10.8) X10*3/uL RBC (4.20-5.50) X10*6/uL Hgb (12.0-16.0) g/dl Hct (37.0-47.0) % MCV (80.0-98.0) fL MCH (27.0-33.0) pg MCHC (31.0-35.0) g/dl RDW (11.0-16.0) % Plt Count (160-400) X10*3/uL MPV (9.4-12.3) fL Immature Gran % (Auto) (0.0-0.4) % Neut % (Auto) (45-73) % Lymph % (Auto) (20-40) % [place] % (Auto) (2-11) % Eos % (Auto) (0-4) % Baso % (Auto) (0-2) % Lymph # (Auto) (1.2-4.9) X10*3/uL [place] # (Auto) (0.1-1.2) X10*3/uL Eos # (Auto) (0.0-0.4) X10*3/uL Baso # (Auto) (0.0-0.2) X10*3/uL Abs Immat Gran (auto) (0.00-0.03) X10*3/uL Absolute Neuts (auto) (2.0-8.3) x10*3/uL Absolute Nucleated RBC (0.0-0.012) X10*3/uL Nucleated RBC % (auto) (0.0-0.2) /100WBC D-Dimer High Sensitivty 156 NG/ML Sodium 144 (135-145) mmol/L Potassium 3.5 (3.3-5.1) mmol/L Chloride 106 (96-108) mmol/L Carbon Dioxide 21 L (22-29) mmol/L Anion Gap 21 H (12-20) BUN 9 (9-16) mg/dL Creatinine 0.86 (0.5-1.4) mg/dL Estim Creat Clear Calc 58.6 Estimated GFR > 60 Random Glucose 195 H (60-115) mg/dL Lactic Acid (0.5-2.0) mmol/L Lactic Acid F/U @ 2Hr (0.5-2.0) mmol/L Calcium 9.8 D (8.4-10.2) mg/dL Magnesium (1.6-2.6) mg/dL Total Bilirubin (0.0-1.0) mg/dL Direct Bilirubin (0.0-0.5) mg/dL AST (5-31) U/L ALT (0-31) U/L Alkaline Phosphatase (39-117) U/L Troponin I High Sens (<3.5-17.0) ng/L Total Protein (6.5-8.0) g/dL Albumin (3.5-5.0) g/dL Lipase (8-78) U/L Ethyl Alcohol mg/dL COVID-19 ([facility]) Negative (Negative) COVID-19 Clin Com See Note 05/02/22 05/02/22 Range/Units 01:01 01:01 WBC (4.8-10.8) X10*3/uL RBC (4.20-5.50) X10*6/uL Hgb (12.0-16.0) g/dl Hct (37.0-47.0) % MCV (80.0-98.0) fL MCH (27.0-33.0) pg MCHC (31.0-35.0) g/dl RDW (11.0-16.0) % Plt Count (160-400) X10*3/uL MPV (9.4-12.3) fL Immature Gran % (Auto) (0.0-0.4) % Neut % (Auto) (45-73) % Lymph % (Auto) (20-40) % [place] % (Auto) (2-11) % Eos % (Auto) (0-4) % Baso % (Auto) (0-2) % Lymph # (Auto) (1.2-4.9) X10*3/uL [place] # (Auto) (0.1-1.2) X10*3/uL Eos # (Auto) (0.0-0.4) X10*3/uL Baso # (Auto) (0.0-0.2) X10*3/uL Abs Immat Gran (auto) (0.00-0.03) X10*3/uL Absolute Neuts (auto) (2.0-8.3) x10*3/uL Absolute Nucleated RBC (0.0-0.012) X10*3/uL Nucleated RBC % (auto) (0.0-0.2) /100WBC D-Dimer High Sensitivty NG/ML Sodium (135-145) mmol/L Potassium (3.3-5.1) mmol/L Chloride (96-108) mmol/L Carbon Dioxide (22-29) mmol/L Anion Gap (12-20) BUN (9-16) mg/dL Creatinine (0.5-1.4) mg/dL Estim Creat Clear Calc Estimated GFR Random Glucose (60-115) mg/dL Lactic Acid (0.5-2.0) mmol/L Lactic Acid F/U @ 2Hr 1.8 (0.5-2.0) mmol/L Calcium (8.4-10.2) mg/dL Magnesium 3.1 H (1.6-2.6) mg/dL Total Bilirubin 1.4 H (0.0-1.0) mg/dL Direct Bilirubin 0.7 H (0.0-0.5) mg/dL AST 56 H (5-31) U/L ALT 67 H (0-31) U/L Alkaline Phosphatase 111 (39-117) U/L Troponin I High Sens (<3.5-17.0) ng/L Total Protein 8.5 H (6.5-8.0) g/dL Albumin 5.2 H (3.5-5.0) g/dL Lipase 52 (8-78) U/L Ethyl Alcohol < 10 mg/dL COVID-19 ([facility]) (Negative) COVID-19 Clin Com Discharge Plan Discharge Clinical Impression: Intractable vomiting, Acute alcoholic gastritis, Alcoholic ketoacidosis, Acidosis, lactic, Alcohol withdrawal Patient Disposition: Admitted As Inpatient
[2022-05-01] MEDS: ondansetron HCL 4 MG/2 ML VIAL IVPUSH (22:32)
[2022-05-01] MEDS: 0.9 % Sodium Chloride 1,000 ML 999 ML IV (22:32)
[2022-05-01 22:33] LABS: MANUAL DIFF FLAG NO
[2022-05-01 22:41] LABS: Basophils Absolute Auto 0.1 X10*3/uL (0.0-0.2); Basophils Percent Auto 0.8 % (0-2); Hematocrit 44.5 % (37.0-47.0); Hemoglobin 15.8 g/dl (12.0-16.0); Imm Gran Abs Auto 0.06 X10*3/uL (0.00-0.03); Imm Gran Pct Auto 0.8 % (0.0-0.4); Lymphocytes Absolute Auto 0.9 X10*3/uL (1.2-4.9); Mean Corpuscular HGB Conc 35.5 g/dl (31.0-35.0); Mean Corpuscular Volume 92.9 fL (80.0-98.0); Monocytes Absolute Auto 0.5 X10*3/uL (0.1-1.2); Monocytes Percent Auto 6.6 % (2-11); Neutrophils Absolute Auto 5.9 x10*3/uL (2.0-8.3); Neutrophils Percent Auto 79.8 % (45-73); Platelet Count 227 X10*3/uL (160-400); Red Blood Count 4.79 X10*6/uL (4.20-5.50); Red Cell Distribution Width 12.8 % (11.0-16.0); White Blood Count 7.4 X10*3/uL (4.8-10.8)
[2022-05-01 22:48] LABS: D Dimer High Sensitivity 156 NG/ML
[2022-05-01 22:58] LABS: Troponin-I High Sensitivity 4.5 ng/L (<3.5-17.0)
[2022-05-01 23:01] LABS: COVID-19 Test Negative (Negative); IDNOW Serial# 55D5AD1C
[2022-05-01] MEDS: Magnesium Sulfate/H2O 2 GM/50 ML PIGGYBACK IV (23:37)
[2022-05-01] MEDS: Morphine Sulfate 4 MG/ML CARTRIDGE IVPUSH (23:37)
[2022-05-01] MEDS: Famotidine/PF 20 MG/2 ML VIAL IVPUSH (23:37)
[2022-05-02 00:19] VITALS: BP 195/98; PULSE 89; RESP 18; O2SAT 100
[2022-05-02 00:31] LABS: Reflex Lactate? Lactic Acid Added
[2022-05-02 01:18] LABS: ~Lactic Acid-LAB USE ONLY 1.8 mmol/L (0.5-2.0)
[2022-05-02 01:26] LABS: Anion Gap 21 (12-20); Blood Urea Nitrogen 9 mg/dL (9-16); Calcium 9.8 mg/dL (8.4-10.2); Carbon Dioxide 21 mmol/L (22-29); Chloride 106 mmol/L (96-108); Creatinine Clr Calc Pharmacy 58.6; Estimated Glomerular Filt Rate > 60; Glucose Random 195 mg/dL (60-115); Potassium 3.5 mmol/L (3.3-5.1); Sodium 144 mmol/L (135-145)
[2022-05-02 01:28] LABS: Alanine Aminotransferase 67 U/L (0-31); Albumin Level 5.2 g/dL (3.5-5.0); Alkaline Phosphatase 111 U/L (39-117); Aspartate Amino Transferase 56 U/L (5-31); Bilirubin Direct 0.7 mg/dL (0.0-0.5); Bilirubin Total 1.4 mg/dL (0.0-1.0); Ethanol < 10 mg/dL; Lipase 52 U/L (8-78); Magnesium 3.1 mg/dL (1.6-2.6); Total Protein 8.5 g/dL (6.5-8.0)
[2022-05-02] MEDS: Dextrose 5 % and 0.45 % NaCl 1,000 ML 250 ML IVCONT ×3 (01:28→23:16)
--- NOTE | 2022-05-02 02:06 | PM.IMHP ---
History of Present Illness Date of Service: 05/02/22 Chief Complaint: nausea vomiting 61-year-old female with past medical history of alcohol abuse, CHF, anxiety, history of esophagitis, presents to the hospital with complaints of nausea and vomiting for the past few days. Patient currently sleeping, arousable, answers questions appropriately. She reports epigastric pain, nausea vomiting for the past few days with no blood in vomit, no diarrhea constipation, Patient reports that she has not been taking care of herself, she has been bed-bound for 3 weeks being depressed and self loathing Over the of her about a year ago. She reports that she is on Antidepressant but does not seem to be helping. she reports that she does feel like she is withdrawing, she drinks 1 bottle of Wine or more daily from when she wakes up to when she goes to bed. she denies any fever or chills, no chest pain, no shortness of breath, no headache or change in vision, no urinary symptoms and no lower extremity edema On arrival to the ED patient hemodynamically stable with no significant abnormal vitals except for slightly elevated blood pressure labs are significant for WBC count of 5.8, lactic acid of 4.0, magnesium of 3.1, total bili of 1.4, direct bili of 0.7, AST of 57, ALT of 67, lipase of [address] shows no acute findings in the abdomen or pelvis, no evidence of pancreatitis S patient was being evaluated and waiting in the ED she did starts withdrawing, patient was started on phenobarb, currently appears comfortable Review of Systems Review of Systems: Yes all other systems are reviewed and are negative [facility] Medical History Anxiety CHF (congestive heart failure) ETOH abuse Multinodular thyroid Family History Mother Cancer Father No problems noted. Surgical History History of esophagogastroduodenoscopy (EGD) Hx of colonoscopy Hx of hysterectomy Social History Household Members: Friend(s) Alcohol intake: current Alcohol intake frequency: 3 or more drinks per day Alcohol type: wine Patient Tobacco Use Status: Never used Tobacco Use of substances other than those prescribed or required for medical reasons: No Substance Use Type: Unknown Advance Directives: Yes Advance Directives on File: Yes Advance Directives Date on File: 06/26/17 Patient : No Current occupational status: disabled Meds Allergies Allergy/AdvReac Type Severity Reaction Status Date / Time No Known Allergies Allergy Verified 01/22/21 09:53 [No Known Allergies*] Active Medications: Current Medications Dextrose/Sodium Chloride (D51/2ns) 1,000 mls @ 250 mls/hr IVCONT .Q4H [facility] Last Admin: 05/02/22 01:28 Dose: 250 mls/hr Pharmacy Consult (Consult Rx Etoh Phenob Im/Po) 600 each MISCELLANE ONCE ONE; Protocol Stop: 05/02/22 01:49 Home Medications Medication Instructions Recorded Confirmed Last Taken Type cyanocobalamin (vitamin B-12) 1,000 mcg PO DAILY 09/29/20 09/29/20 Unknown History 1,000 mcg tablet folic acid 1 mg tablet 1 mg PO DAILY 09/29/20 09/29/20 Unknown History hydroxyzine pamoate 50 mg capsule 50 mg PO BID PRN anxiety 09/29/20 09/29/20 Unknown History thiamine HCl (vitamin B1) 100 mg 100 mg PO DAILY 09/29/20 09/29/20 Unknown History tablet venlafaxine 75 mg capsule,extended 75 mg PO DAILY 09/29/20 09/29/20 Unknown History release 24 hr Physical Exam Vital Signs and Narrative: Vital Signs: Last Vital Signs Pulse 89 05/02/22 00:19 Resp 18 05/02/22 00:19 BP 195/98 H 05/02/22 00:19 Pulse Ox 100 05/02/22 00:19 O2 Del Method 05/01/22 22:01 BMI result Body Mass Index 24.0 Const: General: cooperative and no acute distress Orientation/consciousness: patient oriented x3 Eyes: General: appearance normal, both eyes and all related structures Resp: Effort & Inspection: normal respiratory effort Auscultation: clear to auscultation bilaterally Cardio: Rate: regular rate Rhythm: regular rhythm GI: Other: abdomen is soft, nontender, no rebound or guarding Palpation (GI): Soft to palpation Auscultation: normal bowel sounds Skin: General skin exam: no rashes or lesions noted Neuro: General: patient oriented x3 Cognition (Neuro): normal cognition Extrem: General: Yes normal to inspection and Yes no pedal edema Results Labs CBC and Chem 7: 05/02/22 04:57 05/02/22 04:57 Labs: Laboratory Results - last 24 hr 05/01/22 05/01/22 05/01/22 22:26 22:26 22:26 MCV 92.9 MCH 33.0 MCHC 35.5 H RDW 12.8 Plt Count 227 MPV 10.0 Immature Gran % (Auto) 0.8 H Neut % (Auto) 79.8 H Lymph % (Auto) 12.0 L [place] % (Auto) 6.6 Eos % (Auto) 0.0 Baso % (Auto) 0.8 Lymph # (Auto) 0.9 L [place] # (Auto) 0.5 Eos # (Auto) 0.0 Baso # (Auto) 0.1 Abs Immat Gran (auto) 0.06 H Absolute Neuts (auto) 5.9 Absolute Nucleated RBC 0.000 Nucleated RBC % (auto) 0.0 D-Dimer High Sensitivty Anion Gap Estim Creat Clear Calc Estimated GFR Random Glucose Lactic Acid 4.0 H* Lactic Acid F/U @ 2Hr Calcium Magnesium Total Bilirubin Direct Bilirubin AST ALT Alkaline Phosphatase Total Protein Albumin Lipase Ethyl Alcohol COVID-19 ([facility]) Negative COVID-19 Clin Com See Note 05/01/22 05/02/22 05/02/22 22:27 01:01 01:01 MCV MCH MCHC RDW Plt Count MPV Immature Gran % (Auto) Neut % (Auto) Lymph % (Auto) [place] % (Auto) Eos % (Auto) Baso % (Auto) Lymph # (Auto) [place] # (Auto) Eos # (Auto) Baso # (Auto) Abs Immat Gran (auto) Absolute Neuts (auto) Absolute Nucleated RBC Nucleated RBC % (auto) D-Dimer High Sensitivty 156 Anion Gap 21 H Estim Creat Clear Calc 58.6 Estimated GFR > 60 Random Glucose 195 H Lactic Acid Lactic Acid F/U @ 2Hr Calcium 9.8 D Magnesium 3.1 H Total Bilirubin 1.4 H Direct Bilirubin 0.7 H AST 56 H ALT 67 H Alkaline Phosphatase 111 Total Protein 8.5 H Albumin 5.2 H Lipase 52 Ethyl Alcohol < 10 COVID-19 ([facility]) COVID-19 Clin Com 05/02/22 01:01 MCV MCH MCHC RDW Plt Count MPV Immature Gran % (Auto) Neut % (Auto) Lymph % (Auto) [place] % (Auto) Eos % (Auto) Baso % (Auto) Lymph # (Auto) [place] # (Auto) Eos # (Auto) Baso # (Auto) Abs Immat Gran (auto) Absolute Neuts (auto) Absolute Nucleated RBC Nucleated RBC % (auto) D-Dimer High Sensitivty Anion Gap Estim Creat Clear Calc Estimated GFR Random Glucose Lactic Acid Lactic Acid F/U @ 2Hr 1.8 Calcium Magnesium Total Bilirubin Direct Bilirubin AST ALT Alkaline Phosphatase Total Protein Albumin Lipase Ethyl Alcohol COVID-19 ([facility]) COVID-19 Clin Com Imaging Radiologist's Impressions: Impressions Chest X-Ray 05/01/22 22:52 IMPRESSION: No acute pulmonary process. Abdomen/Pelvis CT 05/01/22 23:19 IMPRESSION: No acute findings identified in the abdomen/pelvis. No evidence of pancreatitis. Small hiatal hernia. Assessment and Plan (1) Intractable vomiting: Status: Acute (2) Acute alcoholic gastritis: Status: Acute (3) Acidosis, lactic: Status: Acute (4) Alcohol withdrawal: Status: Acute Plan 61-year-old female with past medical history of alcohol abuse presents to the hospital with complaints of nausea vomiting as well as epigastric pain # intractable nausea vomiting - likely secondary to alcoholic gastritis versus gastroenteritis - CT abdomen pelvis negative, no evidence of pancreatitis, lipase normal - will treat with supportive measure, will start on PPI b.i.d. given her history of alcohol abuse - antiemetic , IV fluids # acute alcoholic ketoacidosis - elevated lactic acid - no evidence of acute infection - will treat with IV fluids - lactic acid resolved # alcohol abuse with alcohol withdrawal - start on phenobarb protocol in the ED - will treat with thiamine and folic acid supplement - monitor withdrawal symptoms DVT prophylaxis: Lovenox given patient's intractable nausea vomiting, as well as acute alcohol withdrawal patient will require minimum 2 night hospital stay for further management and monitoring Quality Stroke Does the patient have a stroke diagnosis?: No VTE Prior VTE?: No VTE Risk Level:: Medical - moderate - high VTE Device Contraindication: Treatment Not Indicated VTE Drug Contraindication: N/A - Med Ordered
[2022-05-02] MEDS: Midazolam HCl/PF 2 MG/2 ML VIAL IVPUSH (02:25)
[2022-05-02] MEDS: Prochlorperazine Edisylate 10 MG/2 ML VIAL IVPUSH (02:25)
[2022-05-02 02:28] VITALS: BP 181/103; PULSE 78; RESP 20; O2SAT 94
--- NOTE | 2022-05-02 02:35 | PC.NURSE ---
Pt refused vitamin B and folic acid. Pt is intermittently vomiting and does not want to put more pills in her stomach than she has to. She took the phenobarbital with no complications so far.
[2022-05-02] MEDS: Enoxaparin Sodium 40 MG/0.4 ML SYRINGE SUBCUT (02:42)
--- NOTE | 2022-05-02 03:47 | PC.NURSE ---
Addendum entered by Radha Mo RN 05/02/22 06:27: Dr Pérez instructed to start LR when first bolus of D5+0.45 was finished. Hung LR and it is running at 100mL/hr. Held the next ordered administration of D5+0.45 Original Note: D5 +0.45 running at this time with about 2 hours left in the bag. There are orders for both D5+0.45 and lactated ringers. I have messaged the hospitalist for clarifications on which med to proceed with. Continuing with D5+0.45 at 250mL/hr and waiting for a response at this time.
[2022-05-02 05:01] LABS: Basophils Percent Auto 0.3 % (0-2); Hemoglobin 13.1 g/dl (12.0-16.0); Imm Gran Abs Auto 0.03 X10*3/uL (0.00-0.03); Imm Gran Pct Auto 0.5 % (0.0-0.4); Lymphocytes Absolute Auto 0.8 X10*3/uL (1.2-4.9); Lymphocytes Percent Auto 13.5 % (20-40); MANUAL DIFF FLAG NO; Mean Corpuscular HGB Conc 35.4 g/dl (31.0-35.0); Mean Corpuscular Hemoglobin 33.5 pg (27.0-33.0); Mean Corpuscular Volume 94.6 fL (80.0-98.0); Mean Platelet Volume 9.9 fL (9.4-12.3); Monocytes Absolute Auto 0.5 X10*3/uL (0.1-1.2); Monocytes Percent Auto 8.1 % (2-11); Neutrophils Absolute Auto 4.5 x10*3/uL (2.0-8.3); Neutrophils Percent Auto 77.6 % (45-73); Platelet Count 182 X10*3/uL (160-400); Red Blood Count 3.91 X10*6/uL (4.20-5.50); White Blood Count 5.8 X10*3/uL (4.8-10.8)
[2022-05-02 05:28] LABS: Anion Gap 18 (12-20); Blood Urea Nitrogen 9 mg/dL (9-16); Calcium 8.6 mg/dL (8.4-10.2); Carbon Dioxide 22 mmol/L (22-29); Chloride 103 mmol/L (96-108); Creatinine Clr Calc Pharmacy 53.6; Estimated Glomerular Filt Rate > 60; Glucose Random 309 mg/dL (60-115); Potassium 3.5 mmol/L (3.3-5.1); Sodium 139 mmol/L (135-145)
[2022-05-02] MEDS: Lactated Ringers 1,000 ML 100 ML IVCONT ×2 (05:48→12:58)
[2022-05-02 05:53] VITALS: BP 130/62; PULSE 73; RESP 18
[2022-05-02] MEDS: Omeprazole 40 MG CAPSULE.DR PO ×2 (06:54→17:44)
[2022-05-02 07:14] VITALS: BP 114/53; PULSE 69; RESP 20; TEMP 36.8; O2SAT 94
--- NOTE | 2022-05-02 07:43 | PHA.MEDREC ---
Pharmacy Consult ? Medication Reconciliation Pharmacy has completed the medication reconciliation.
[2022-05-02] MEDS: Thiamine HCL 100 MG TABLET PO (08:21)
[2022-05-02] MEDS: Folic Acid 1 MG TABLET PO (08:21)
--- NOTE | 2022-05-02 11:44 | MHC.CM.PN ---
IMM ADDRESSED, ORIGINAL TO PATIENT (LEFT AT BEDSIDE); COPY TO CHART PATIENT LIVES WITH FRIENDS IS INDEPENDENT AT HOME AND COMMUNITY DENIES USE OF DME OR RECEIVING HOME SERVICES [facility]ORGE [employer]LEY[employer] X3 PCP: STEPHANIE HOLCOMB EDUCATED ON HCP/DECLINED TO COMPLETE AT THIS TIME FRIEND WILL TRANSPORT D/C PLAN: HOME SELF-CARE vs CARE TEAM RECOMMENDATIONS
--- NOTE | 2022-05-02 14:24 | PM.EVENT ---
Event Note Date of Service: 05/02/22 Event Note: chart reviewed/patient examined. More comfortable than admit. Tolerating phenobarb protocol without seizures. Agree with plan as outlined
--- NOTE | 2022-05-02 16:05 | PC.NURSE ---
report given to nayely
[2022-05-02 17:26] VITALS: BP 146/67; PULSE 91; RESP 15; TEMP 36.8; O2SAT 99
[2022-05-02 20:00] VITALS: BP 128/60; PULSE 86; RESP 14; TEMP 37.2; O2SAT 99
[2022-05-02] MEDS: PHENobarbitaL 15 MG TABLET 45 MG PO (20:45)
[2022-05-03] VITALS: BP 168/80; PULSE 79; RESP 18; TEMP 36.4; O2SAT 100
[2022-05-03] MEDS: Enoxaparin Sodium 40 MG/0.4 ML SYRINGE SUBCUT (02:21)
[2022-05-03 03:55] VITALS: BP 161/84; PULSE 70; RESP 18; TEMP 36.5; O2SAT 98
[2022-05-03] MEDS: Dextrose 5 % and 0.45 % NaCl 1,000 ML 250 ML IVCONT ×5 (04:01→22:32)
[2022-05-03] MEDS: Omeprazole 40 MG CAPSULE.DR PO (05:50)
[2022-05-03] MEDS: ondansetron HCL 4 MG/2 ML VIAL IVPUSH ×2 (05:50→15:24)
[2022-05-03 05:53] LABS: MANUAL DIFF FLAG NO
[2022-05-03 05:58] LABS: Basophils Percent Auto 0.6 % (0-2); Eosinophils Absolute Auto 0.1 X10*3/uL (0.0-0.4); Eosinophils Percent Auto 1.3 % (0-4); Hematocrit 36.3 % (37.0-47.0); Hemoglobin 12.7 g/dl (12.0-16.0); Imm Gran Abs Auto 0.01 X10*3/uL (0.00-0.03); Imm Gran Pct Auto 0.2 % (0.0-0.4); Mean Corpuscular Hemoglobin 33.3 pg (27.0-33.0); Mean Corpuscular Volume 95.3 fL (80.0-98.0); Mean Platelet Volume 10.2 fL (9.4-12.3); Monocytes Absolute Auto 0.5 X10*3/uL (0.1-1.2); Neutrophils Absolute Auto 2.5 x10*3/uL (2.0-8.3); Neutrophils Percent Auto 48.9 % (45-73); Platelet Count 166 X10*3/uL (160-400); Red Blood Count 3.81 X10*6/uL (4.20-5.50); Red Cell Distribution Width 12.7 % (11.0-16.0); White Blood Count 5.2 X10*3/uL (4.8-10.8)
[2022-05-03 06:24] LABS: Alanine Aminotransferase 40 U/L (0-31); Albumin Level 3.9 g/dL (3.5-5.0); Alkaline Phosphatase 75 U/L (39-117); Anion Gap 14 (12-20); Aspartate Amino Transferase 35 U/L (5-31); Bilirubin Total 1.2 mg/dL (0.0-1.0); Blood Urea Nitrogen 7 mg/dL (9-16); Calcium 8.2 mg/dL (8.4-10.2); Carbon Dioxide 25 mmol/L (22-29); Chloride 103 mmol/L (96-108); Creatinine Clr Calc Pharmacy 67.2; Estimated Glomerular Filt Rate > 60; Glucose Fasting 183 mg/dL (60-99); Potassium 3.4 mmol/L (3.3-5.1); Sodium 139 mmol/L (135-145); Total Protein 6.2 g/dL (6.5-8.0)
[2022-05-03] MEDS: PHENobarbitaL 15 MG TABLET 45 MG PO ×2 (07:16→20:46)
[2022-05-03 07:43] VITALS: BP 170/114; PULSE 91; RESP 19; TEMP 36.7; O2SAT 100
--- NOTE | 2022-05-03 10:00 | P.PNIM_ITS ---
Subjective Subjective Date of Service: 05/03/22 Interval History: Upon not alcoholic gastritis, alcohol withdrawal Interval history: Persistent nausea vomiting but no abdominal pain some tremors due to alcohol withdrawal. Review of Systems Nausea vomiting, tremors Physical Exam Vital Signs: Vital Signs: Last Vital Signs Temp 98.1 F 05/03/22 07:43 Pulse 91 05/03/22 07:43 Resp 19 05/03/22 07:43 BP 170/114 H 05/03/22 07:43 Pulse Ox 100 05/03/22 07:43 O2 Del Method 05/03/22 07:43 BMI result Body Mass Index 24.0 General: AO X 3, no acute distress Resp: CTA bilateral CVS: S1,S2,RRR GI: +BS, NT, no distention Skin: No rash Neuro: motor grossly intact, fine tremors in fingers Psych: appropriate affect Objective Data Active Medications Acetaminophen (Acetaminophen 325 Mg Tablet) 650 mg PO Q6H PRN PRN Reason: Pain, Mild (Pain Scale 1-3) Diphenhydramine HCl (Diphenhydramine Hcl 50 Mg/Ml Vial) 25 mg IVPUSH Q6H PRN PRN Reason: Nausea and Vomiting Docusate Sodium (Docusate Sodium 100 Mg Capsule) 100 mg PO DAILY PRN PRN Reason: Constipation Enoxaparin Sodium (Enoxaparin Sodium 40 Mg/0.4 Ml Syringe) 40 mg SUBCUT Q24H [facility] Last Admin: 05/03/22 02:21 Dose: 40 mg Documented By: NICK Famotidine (Famotidine/Pf 20 Mg/2 Ml Vial) 20 mg IVPUSH BID [facility] Folic Acid (Folic Acid 1 Mg Tablet) 1 mg PO DAILY [facility] Last Admin: 05/03/22 07:55 Dose: Not Given Documented By: TERI Non-Admin Reason: Patient Refused Dextrose/Sodium Chloride (D51/2ns) 1,000 mls @ 250 mls/hr IVCONT .Q4H [facility] Last Admin: 05/03/22 07:38 Dose: 250 mls/hr Documented By: PRASHANTH Omeprazole (Omeprazole 40 Mg Capsule.) 40 mg PO BID@0630,1630 [facility] Last Admin: 05/03/22 05:50 Dose: 40 mg Documented By: NICK Ondansetron HCl (Ondansetron Hcl 4 Mg/2 Ml Vial) 4 mg IVPUSH Q8H PRN PRN Reason: Nausea and Vomiting Last Admin: 05/03/22 05:50 Dose: 4 mg Documented By: NICK Phenobarbital (Phenobarbital 15 Mg Tablet) 45 mg PO BID [facility]; Protocol Stop: 05/04/22 09:01 Last Admin: 05/03/22 07:16 Dose: 45 mg Documented By: TERI Phenobarbital (Phenobarbital 15 Mg Tablet) 15 mg PO BID [facility]; Protocol Stop: 05/06/22 09:01 Phenobarbital (Phenobarbital 15 Mg Tablet) 15 mg PO DAILY [facility]; Protocol Stop: 05/07/22 09:01 Sodium Chloride (0.9 % Sodium Chloride Flush 3 Ml Syringe) 3 ml IVFLUSH QSHIFT [facility] Last Admin: 05/03/22 07:20 Dose: Not Given Documented By: TERI Non-Admin Reason: IV Running Thiamine HCl (Thiamine Hcl 100 Mg Tablet) 100 mg PO DAILY [facility] Last Admin: 05/03/22 07:56 Dose: Not Given Documented By: TERI Non-Admin Reason: Patient Refused Labs CBC & Chem 7: 05/03/22 05:13 05/03/22 05:13 Labs: Laboratory Results - last 24 hr 05/03/22 05/03/22 05:13 05:13 MCV 95.3 MCH 33.3 H MCHC 35.0 RDW 12.7 Plt Count 166 MPV 10.2 Immature Gran % (Auto) 0.2 Neut % (Auto) 48.9 Lymph % (Auto) 39.0 [place] % (Auto) 10.0 Eos % (Auto) 1.3 Baso % (Auto) 0.6 Lymph # (Auto) 2.0 [place] # (Auto) 0.5 Eos # (Auto) 0.1 Baso # (Auto) 0.0 Abs Immat Gran (auto) 0.01 Absolute Neuts (auto) 2.5 Absolute Nucleated RBC 0.000 Nucleated RBC % (auto) 0.0 Anion Gap 14 Estim Creat Clear Calc 67.2 Estimated GFR > 60 Fasting Glucose 183 H Calcium 8.2 L Total Bilirubin 1.2 H AST 35 H ALT 40 H Alkaline Phosphatase 75 D Total Protein 6.2 L D Albumin 3.9 D Assessment and Plan (1) Intractable vomiting: Status: Acute (2) Acute alcoholic gastritis: Status: Acute Plan 61-year-old female with past medical history of alcohol abuse presents to the hospital with complaints of nausea vomiting as well as epigastric pain #? intractable nausea vomiting -? likely secondary to alcoholic gastritis versus gastroenteritis -? CT abdomen pelvis negative, no evidence of pancreatitis, lipase normal -? supportive measure, IV pepcid g -? antiemetic (Zofran and Benadryl) ,? IV fluids #? acute alcoholic ketoacidosis--resolved #? alcohol abuse with alcohol withdrawal -? start on phenobarb protocol in the ED -? will treat with thiamine and folic acid supplement -? monitor withdrawal symptoms ?DVT prophylaxis: Lovenox Need for inpatient: ongoing treatment for alcohol withdrawal, alcoholic gastritis and not able to tolerate oral with peristent n/v Quality Stroke Does the patient have a stroke diagnosis?: No VTE Prior VTE?: No VTE Risk Level:: Medical - moderate - high VTE Device Contraindication: Treatment Not Indicated VTE Drug Contraindication: N/A - Med Ordered
--- NOTE | 2022-05-03 10:26 | P.CDIC_ITS ---
CDI Concurrent Query Documentation Clarification: PHYSICIAN'S DOCUMENTATION REQUEST Date of Query: 05/03/22 1029 Patient Name: Nubia Bell Admit Date: 05/02/22 Dear Doctor, A review of the medical record indicates additional documentation may be needed. Please review below and update the documentation accordingly. Clinical Indicators: Risk Factors/Clinical Indicators/Treatments PMH - CHF 05/02 Progress Note - CHF 05/02 Please provide further specificity regarding the most likely type and acuity of CHF you are evaluating, treating, or monitoring. Confirmed, treat, rule-out. Type: * Systolic * Diastolic * Combined Systolic/Diastolic * Other ? please specify * Unable to determine Acuity: * Acute * Chronic * Acute on chronic * Unable to determine Use of terms such as suspected, likely, concern for, or probable (associated with a specific diagnosis that is being evaluated, monitored, or treated as if it exists) are acceptable and can be coded in the inpatient setting, when documented at the time of discharge. Thank you, Christine Ho MS, RN, CCRN Extension: [phone] Please use your independent medical judgment in providing your response. THIS QUERY IS PART OF THE PERMANENT MEDICAL RECORD Provider Response: Other Other Diagnosis: Unable to determine and no active heart failure
[2022-05-03] MEDS: Famotidine/PF 20 MG/2 ML VIAL IVPUSH ×2 (10:28→20:46)
[2022-05-03] MEDS: diphenhydrAMINE HCL 50 MG/ML VIAL 25 MG IVPUSH ×2 (10:28→17:28)
--- NOTE | 2022-05-03 10:36 | P.CDIC_ITS ---
CDI Concurrent Query Documentation Clarification: PHYSICIAN'S DOCUMENTATION REQUEST Date of Query: 05/03/22 1038 Patient Name: Nubia Bell Admit Date: 05/02/22 Dear Doctor, A review of the medical record indicates additional documentation may be needed. Please review below and update the documentation accordingly. Clinical Indicators: The following diagnoses or signs and symptoms were noted in the patient record: Risk Factors/Clinical Indicators/Treatments LABS: Magnesium - 3.1 05/02 Based on the above, could you clarify in the Progress Notes the appropriate diagnosis, if significant, that supports the above abnormalities and additional evaluation, monitoring, and/or treatment rendered: * Hypermagnesemia * Labs indicate a diagnosis of (please specify) * Other (please specify) * Unable to determine Use of terms such as suspected, likely, concern for, or probable (associated with a specific diagnosis that is being evaluated, monitored, or treated as if it exists) are acceptable and can be coded in the inpatient setting, when documented at the time of discharge. Thank you, Christine Ho MS, RN, CCRN Extension: [phone] Please use your independent medical judgment in providing your response. THIS QUERY IS PART OF THE PERMANENT MEDICAL RECORD Provider Response: Other Other Diagnosis: hypermagnesemia
--- NOTE | 2022-05-03 10:45 | P.CDIC_ITS ---
CDI Concurrent Query Documentation Clarification: PHYSICIAN'S DOCUMENTATION REQUEST Date of Query: 05/03/22 1047 Patient Name: Nubia Bell Admit Date: 05/02/22 Dear Doctor, A review of the medical record indicates additional documentation may be needed. Please review below and update the documentation accordingly. Clinical Indicators: Is there a diagnosis that correlates with these lab findings below: Risk Factors/Clinical Indicators/Treatments LABS: Random Glucose - 309 on 05/02 Fasting Glucose - 183 on 05/03 Based on the above, could you clarify in the Progress Notes the appropriate diagnosis, if significant, that supports the above abnormalities and additional evaluation, monitoring, and/or treatment rendered: * Hyperglycemia * Labs indicate a diagnosis of (please specify) * Other (please specify) * Unable to determine Use of terms such as suspected, likely, concern for, or probable (associated with a specific diagnosis that is being evaluated, monitored, or treated as if it exists) are acceptable and can be coded in the inpatient setting, when documented at the time of discharge. Thank you, Christine Ho MS, RN, CCRN Extension: [phone] Please use your independent medical judgment in providing your response. THIS QUERY IS PART OF THE PERMANENT MEDICAL RECORD Provider Response: Other Other Diagnosis: hyperglycemia
--- NOTE | 2022-05-03 13:56 | MHC.CM.PN ---
PATIENT STILL WITH N/V. PLAN IS DC HOME IN NEXT FEW DAYS.
[2022-05-03 15:16] VITALS: BP 168/98; PULSE 94; RESP 18; TEMP 37.1; O2SAT 96
[2022-05-03 20:00] VITALS: BP 178/98; PULSE 89; RESP 18; TEMP 37.2; O2SAT 98
[2022-05-03] MEDS: 0.9 % Sodium Chloride Flush 3 ML SYRINGE IVFLUSH (20:47)
[2022-05-03] MEDS: oxyCODONE HCl Immed Release 5 MG TABLET PO (22:32)
[2022-05-04] VITALS: BP 138/81; PULSE 84; RESP 18; TEMP 36.4; O2SAT 97
[2022-05-04] MEDS: Enoxaparin Sodium 40 MG/0.4 ML SYRINGE SUBCUT (02:43)
[2022-05-04 03:41] VITALS: BP 128/80; PULSE 83; RESP 18; TEMP 36.2; O2SAT 98
[2022-05-04] MEDS: Omeprazole 40 MG CAPSULE.DR PO (06:13)
[2022-05-04 06:36] LABS: Basophils Percent Auto 0.5 % (0-2); Eosinophils Absolute Auto 0.1 X10*3/uL (0.0-0.4); Eosinophils Percent Auto 0.6 % (0-4); Hematocrit 42.8 % (37.0-47.0); Hemoglobin 15.6 g/dl (12.0-16.0); Imm Gran Abs Auto 0.02 X10*3/uL (0.00-0.03); Imm Gran Pct Auto 0.2 % (0.0-0.4); Lymphocytes Absolute Auto 2.1 X10*3/uL (1.2-4.9); Lymphocytes Percent Auto 24.4 % (20-40); MANUAL DIFF FLAG SCAN; Mean Corpuscular HGB Conc 36.4 g/dl (31.0-35.0); Mean Corpuscular Hemoglobin 33.9 pg (27.0-33.0); Mean Platelet Volume 10.2 fL (9.4-12.3); Monocytes Absolute Auto 1.5 X10*3/uL (0.1-1.2); Monocytes Percent Auto 17.8 % (2-11); Neutrophils Absolute Auto 4.9 x10*3/uL (2.0-8.3); Neutrophils Percent Auto 56.5 % (45-73); Platelet Count 226 X10*3/uL (160-400); Red Cell Distribution Width 12.3 % (11.0-16.0); SCAN SMEAR FLAG 1; White Blood Count 8.6 X10*3/uL (4.8-10.8)
[2022-05-04 07:08] LABS: SLIDE REVIEW VERIFIED
[2022-05-04 07:39] VITALS: BP 135/79; PULSE 112; RESP 17; TEMP 36.5; O2SAT 99
[2022-05-04] MEDS: Famotidine/PF 20 MG/2 ML VIAL IVPUSH (07:42)
[2022-05-04] MEDS: 0.9 % Sodium Chloride Flush 3 ML SYRINGE IVFLUSH (07:43)
[2022-05-04] MEDS: PHENobarbitaL 15 MG TABLET 45 MG PO (07:43)
--- NOTE | 2022-05-04 09:54 | P.DS_ITS ---
DS: Providers Provider Date of Service: 05/04/22 Date of admission: 05/02/22 02:04 Primary care physician: Nonstaff Physician DS: Diagnosis Discharge Diagnosis (1) Intractable vomiting: Status: Acute (2) Acute alcoholic gastritis: Status: Acute DS: Summary Hospital Course Hospital Course: Chief Complaint:? nausea vomiting ?61-year-old female with past medical history of alcohol abuse, CHF, anxiety, history of esophagitis, presents to the hospital with complaints of nausea and vomiting for the past few days.? Patient currently sleeping, arousable, answers questions appropriately.? She reports epigastric pain, nausea vomiting for the past few days with no blood in vomit, no diarrhea constipation, ? Patient reports that she has not been taking care of herself, she has been bed-bound for 3 weeks being depressed and self loathing? Over the of her about a year ago.? She reports that she is on ? Antidepressant but does not seem to be helping. she reports that she does feel like she is withdrawing, she drinks 1 bottle of ? Wine or more daily from when she wakes up to when she goes to bed. she denies any fever or chills, no chest pain, no shortness of breath, no headache or change in vision, no urinary symptoms and no lower extremity edema On arrival to the ED patient hemodynamically stable with no significant abnormal vitals except for slightly elevated blood pressure ?labs are significant for WBC count of? 5.8, lactic acid of 4.0, magnesium of 3.1, total bili of 1.4, direct bili of 0.7, AST of 57, ALT of 67, lipase of 52 ?abdomen pelvic CT shows no acute findings in the abdomen or pelvis, no evidence of pancreatitis ?S patient was being evaluated and waiting in the ED she did starts withdrawing, patient was started on phenobarb, currently appears comfortable Hospital course: She presented with nausea and vomitting in context of excessive alcohol consumption and noted to be at risk for withdrawal, further more was noted to have gastritis, alcoholic ketoacidosis and lactic acidosis. Her mangement consisted of IVF for nausea and vomitting which also corrected alcoholic ketoacidos.. Pepcid hep inrelieving gastritis. She is doing better, tolerating diet and at this time shows no sings of alcohol withdrawal . Final diagnosis: 1. Alcohol withdrawal 2. Alcoholic gastritis 3. alcoholic ketoacisodis 4. Hyperglycemia 5. Hyermagnesemia Time Spent with Patient Time attestation: Total time spent providing and/or coordinating discharge services: Discharge coordination time: Greater than 30 minutes Quality: Safe Use of Opioids Does Pt have an Active Cancer Diagnosis on the Problem List?: No Quality: Stroke Does the patient have a stroke diagnosis?: No Physical Exam Vital Signs: Vital Signs: Last Vital Signs Temp 97.7 F 05/04/22 07:39 Pulse 112 H 05/04/22 07:39 Resp 17 05/04/22 07:39 BP 135/79 05/04/22 07:39 Pulse Ox 99 05/04/22 07:39 O2 Del Method 05/04/22 07:39 BMI result Body Mass Index 24.0 DS: Data Data Completed and Pending Labs on day of discharge: Laboratory Results - last 24 hr 05/04/22 06:02 WBC 8.6 RBC 4.60 D Hgb 15.6 D Hct 42.8 MCV 93.0 MCH 33.9 H MCHC 36.4 H RDW 12.3 Plt Count 226 D MPV 10.2 Immature Gran % (Auto) 0.2 Neut % (Auto) 56.5 Lymph % (Auto) 24.4 [place] % (Auto) 17.8 H Eos % (Auto) 0.6 Baso % (Auto) 0.5 Lymph # (Auto) 2.1 [place] # (Auto) 1.5 H Eos # (Auto) 0.1 Baso # (Auto) 0.0 Abs Immat Gran (auto) 0.02 Absolute Neuts (auto) 4.9 Absolute Nucleated RBC 0.000 Nucleated RBC % (auto) 0.0 Smear Tech's Comments VERIFIED Discharge Plan Discharge Anticipated Discharge Date/Time: 05/04/22 09:52 Patient Disposition: Home, Self-Care Discharge Diagnosis: Alcohol withdrawal, alcoholic gastritis Referrals: Physician,Nonstaff [Primary Care Provider] - 1 Week Discharge Medications: Continued metoprolol succinate 25 mg tablet extended release 24 hr 25 mg PO DAILY 90 Days Qty: 90 4RF pantoprazole 40 mg tablet,delayed release (DR/EC) 40 mg PO BID Qty: 60 3RF albuterol sulfate [Ventolin HFA] 90 mcg/actuation HFA aerosol inhaler 1 puff PO QID Qty: 18 0RF ondansetron HCl [Zofran] 4 mg tablet 4 mg PO Q8H PRN (Reason: nausea and vomiting) Qty: 10 0RF chlordiazepoxide HCl 25 mg capsule 25 mg PO Q8H PRN (Reason: anxiety) Qty: 10 0RF folic acid 1 mg tablet 1 mg PO DAILY venlafaxine 75 mg capsule,extended release 24hr 75 mg PO DAILY Diet: Advance to usual diet Activity on Discharge: As tolerated Stand Alone Forms: Patient Portal Discharge page Care Plan Goals: Prevent rehospistalization and to stop drinking Health Concerns: as above Plan of Treatment: stop drinking alcohol, take prilosec as recommended and follow up with your do ctor nata week Assessment: as above
--- NOTE | 2022-05-04 09:56 | PM.DS ---
DS: Providers Provider Date of Service: 05/04/22 Date of admission: 05/02/22 02:04 Primary care physician: Nonstaff Physician DS: Diagnosis Discharge Diagnosis (1) Intractable vomiting: Status: Acute (2) Acute alcoholic gastritis: Status: Acute DS: Summary Hospital Course Hospital Course: Chief Complaint:? nausea vomiting ?61-year-old female with past medical history of alcohol abuse, CHF, anxiety, history of esophagitis, presents to the hospital with complaints of nausea and vomiting for the past few days.? Patient currently sleeping, arousable, answers questions appropriately.? She reports epigastric pain, nausea vomiting for the past few days with no blood in vomit, no diarrhea constipation, ? Patient reports that she has not been taking care of herself, she has been bed-bound for 3 weeks being depressed and self loathing? Over the of her about a year ago.? She reports that she is on ? Antidepressant but does not seem to be helping. she reports that she does feel like she is withdrawing, she drinks 1 bottle of ? Wine or more daily from when she wakes up to when she goes to bed. she denies any fever or chills, no chest pain, no shortness of breath, no headache or change in vision, no urinary symptoms and no lower extremity edema On arrival to the ED patient hemodynamically stable with no significant abnormal vitals except for slightly elevated blood pressure ?labs are significant for WBC count of? 5.8, lactic acid of 4.0, magnesium of 3.1, total bili of 1.4, direct bili of 0.7, AST of 57, ALT of 67, lipase of 52 ?abdomen pelvic CT shows no acute findings in the abdomen or pelvis, no evidence of pancreatitis ?S patient was being evaluated and waiting in the ED she did starts withdrawing, patient was started on phenobarb, currently appears comfortable Hospital course: She presented with nausea and vomitting in context of excessive alcohol consumption and noted to be at risk for withdrawal, further more was noted to have gastritis, alcoholic ketoacidosis and lactic acidosis. Her mangement consisted of IVF for nausea and vomitting which also corrected alcoholic ketoacidos.. Pepcid hep inrelieving gastritis. She is doing better, tolerating diet and at this time shows no sings of alcohol withdrawal Time Spent with Patient Time attestation: Total time spent providing and/or coordinating discharge services: Physical Exam Vital Signs: Vital Signs: Last Vital Signs Temp 97.7 F 05/04/22 07:39 Pulse 112 H 05/04/22 07:39 Resp 17 05/04/22 07:39 BP 135/79 05/04/22 07:39 Pulse Ox 99 05/04/22 07:39 O2 Del Method 05/04/22 07:39 BMI result Body Mass Index 24.0 DS: Data Data Completed and Pending Labs on day of discharge: Laboratory Results - last 24 hr 05/04/22 06:02 WBC 8.6 RBC 4.60 D Hgb 15.6 D Hct 42.8 MCV 93.0 MCH 33.9 H MCHC 36.4 H RDW 12.3 Plt Count 226 D MPV 10.2 Immature Gran % (Auto) 0.2 Neut % (Auto) 56.5 Lymph % (Auto) 24.4 [place] % (Auto) 17.8 H Eos % (Auto) 0.6 Baso % (Auto) 0.5 Lymph # (Auto) 2.1 [place] # (Auto) 1.5 H Eos # (Auto) 0.1 Baso # (Auto) 0.0 Abs Immat Gran (auto) 0.02 Absolute Neuts (auto) 4.9 Absolute Nucleated RBC 0.000 Nucleated RBC % (auto) 0.0 Smear Tech's Comments VERIFIED Discharge Plan Discharge Anticipated Discharge Date/Time: 05/04/22 09:52 Patient Disposition: Home, Self-Care Discharge Diagnosis: Alcohol withdrawal, alcoholic gastritis Referrals: Physician,Nonstaff [Primary Care Provider] - 1 Week Discharge Medications: Continued metoprolol succinate 25 mg tablet extended release 24 hr 25 mg PO DAILY 90 Days Qty: 90 4RF pantoprazole 40 mg tablet,delayed release (DR/EC) 40 mg PO BID Qty: 60 3RF albuterol sulfate [Ventolin HFA] 90 mcg/actuation HFA aerosol inhaler 1 puff PO QID Qty: 18 0RF ondansetron HCl [Zofran] 4 mg tablet 4 mg PO Q8H PRN (Reason: nausea and vomiting) Qty: 10 0RF chlordiazepoxide HCl 25 mg capsule 25 mg PO Q8H PRN (Reason: anxiety) Qty: 10 0RF folic acid 1 mg tablet 1 mg PO DAILY venlafaxine 75 mg capsule,extended release 24hr 75 mg PO DAILY Diet: Advance to usual diet Activity on Discharge: As tolerated Stand Alone Forms: Patient Portal Discharge page Care Plan Goals: Prevent rehospistalization and to stop drinking Health Concerns: as above Plan of Treatment: stop drinking alcohol, take prilosec as recommended and follow up with your doctor nata week Assessment: as above
[2022-05-04] MEDS: Metoprolol Succinate ER 25 MG TAB.ER.24H PO (10:42)
--- NOTE | 2022-05-04 11:07 | MHC.CM.PN ---
PLAN IS HOME TODAY - SELF CARE RN AWARE.
[2022-05-04 12:00] VITALS: BP 114/53; PULSE 119; RESP 16; TEMP 36.6; O2SAT 98
[2022-05-04 13:09] VITALS: BP 130/65; PULSE 99
--- NOTE | 2022-05-04 13:43 | MHC.CM.PN ---
THIS [employer] MET WITH PATIENT TO DISCUSS ANY DESIRE FOR CARE TEAM CONSULT OR ALCOHOL RECOVERY SUPPORT. PATIENT DENIES THIS NEED, STATING THAT SHE PLANS TO JUST SMOKE WEED PATIENT INFORMED THAT IF SHE IS TO RETURN WITH SIMILAR SYMPTOMS, THAT SUPPORTS WILL BE OFFERED AGAIN.
== END 2022-05-04 14:14 | disposition home or self-care (01) | DRG 392 ==
LOC: HO.ED 05-02 01:53 → HO.EDOVER 05-02 02:23 → HO.S3 05-02 14:47
PROVIDERS: Hospitalist; Admitting Provider Internal Medicine; Emergency Provider Internal Medicine; PCP Family Medicine; Visit Provider Internal Medicine
DX: K29.20 Alcoholic gastritis without bleeding (principal); E87.2 Acidosis; F10.139 Alcohol abuse with withdrawal, unspecified; F41.9 Anxiety disorder, unspecified; R73.9 Hyperglycemia, unspecified; E83.41 Hypermagnesemia; I50.9 Heart failure, unspecified; Z20.822 Contact with and (suspected) exposure to COVID-19; Z79.899 Other long term (current) drug therapy
CPT/HCPCS: 36415; 71045; 74176; 80048; 80053; 80076; 82077; 83605; 83690; 83735; 84484; 85025; 85379; 87635; 93005; 99285; J1200; J1650; J2250; J2270; J2405; J3475

== ENCOUNTER → 2022-06-07 13:26 | Outpatient (BNVA) | payer OTHER, SELFPAY | PROVIDERS: PCP Family Medicine; Referring Provider Family Medicine; Visit Provider Internal Medicine Cardiovascular Disease | DX: Z86.79 Personal history of other diseases of the circulatory system (principal); I25.2 Old myocardial infarction; Z79.899 Other long term (current) drug therapy | CPT/HCPCS: 99212 ==

== ENCOUNTER → 2022-07-11 11:01 | Outpatient (BNVA) | payer OTHER, SELFPAY | PROVIDERS: PCP Family Medicine; Referring Provider Family Medicine; Visit Provider Internal Medicine Gastroenterology | DX: R11.2 Nausea with vomiting, unspecified (principal); K20.80 Other esophagitis without bleeding; F10.10 Alcohol abuse, uncomplicated | CPT/HCPCS: 99212 ==

== ENCOUNTER → 2022-12-12 10:07 | Outpatient (BNVA) | payer OTHER, SELFPAY | PROVIDERS: PCP Family Medicine; Visit Provider Internal Medicine Gastroenterology | DX: R11.2 Nausea with vomiting, unspecified (principal); F10.10 Alcohol abuse, uncomplicated; Z87.19 Personal history of other diseases of the digestive system | CPT/HCPCS: 99212 ==

== ENCOUNTER 2023-02-14 18:39 | Emergency (ER) | payer OTHER, SELFPAY ==
[2023-02-14 19:00] VITALS: BP 143/90; BP 158/92; PULSE 115; PULSE 87; RESP 18; TEMP 36.6; O2SAT 95; O2SAT 97; BMI 26.0
[2023-02-14 19:38] LABS: Amphetamine Screen Urine Not Detected (Not Detect); Barbiturates, Urine Not Detected (Not Detect); Benzodiazepines Screen Urine Not Detected (Not Detect); Cannabinoid Screen Urine Not Detected (Not Detect); Cocaine Screen Urine Not Detected (Not Detect); Fentanyl, urine Not Detected (Not Detect); Opiate Screen Urine Not Detected (Not Detect); Phencyclidine Screen Urine Not Detected (Not Detect)
[2023-02-14 19:49] LABS: MANUAL DIFF FLAG NO
--- NOTE | 2023-02-14 19:52 | MHC.RECOVSUP ---
? Reason for consult:ETOH o? Current location:[facility]? o? Identified substance use concern:? -? Seeking ATS (detox) -? Support ? Intervention: o? ATS bed search started/completed/in process o? Community resources provided ? Plan:Discharge ? Additional information:RICARDO met with this pt, discussed ATS treatment patient stated she'd go if there's a bed available, Ricardo started bedsearch but wasn't succesful in obtaining a bed. RICARDO provided this pt with recovery resources and business card.
[2023-02-14 19:53] LABS: Basophils Absolute Auto 0.1 X10*3/uL (0.0-0.2); Basophils Percent Auto 0.9 % (0-2); Eosinophils Absolute Auto 0.1 X10*3/uL (0.0-0.4); Eosinophils Percent Auto 1.6 % (0-4); Hematocrit 43.9 % (37.0-47.0); Hemoglobin 14.8 g/dl (12.0-16.0); Imm Gran Abs Auto 0.04 X10*3/uL (0.00-0.03); Imm Gran Pct Auto 0.7 % (0.0-0.4); Lymphocytes Absolute Auto 2.7 X10*3/uL (1.2-4.9); Mean Corpuscular HGB Conc 33.7 g/dl (31.0-35.0); Mean Corpuscular Hemoglobin 33.7 pg (27.0-33.0); Mean Platelet Volume 9.5 fL (9.4-12.3); Monocytes Absolute Auto 0.5 X10*3/uL (0.1-1.2); Monocytes Percent Auto 9.3 % (2-11); Neutrophils Absolute Auto 2.1 x10*3/uL (2.0-8.3); Neutrophils Percent Auto 38.5 % (45-73); Platelet Count 181 X10*3/uL (160-400); Red Blood Count 4.39 X10*6/uL (4.20-5.50); Red Cell Distribution Width 13.1 % (11.0-16.0); White Blood Count 5.5 X10*3/uL (4.8-10.8)
--- NOTE | 2023-02-14 20:03 | ED.ALCOHOL ---
HPI - Alcohol General Chief Complaint: ETOH/Substance Use Stated Complaint: ETOH Time Seen by Provider: 02/14/23 20:02 Source: patient Mode of arrival: EMS Limitations: no limitations History of Present Illness HPI narrative: Patient comes emergency room complaining of being intoxicated. Patient drank 2 bottles of alcohol. Patient denies any falls, no medical problems. Patient was at home drinking and called 911. Related Data Home Medications Medication Instructions Recorded Confirmed folic acid 1 mg tablet 1 mg PO DAILY 09/29/20 06/07/22 ergocalciferol (vitamin D2) 1,250 1,250 mcg PO QWEEK 07/11/22 mcg (50,000 unit) capsule hydroxyzine pamoate 50 mg capsule 50 mg PO BID PRN anxiety 07/11/22 thiamine HCl (vitamin B1) 100 mg 100 mg PO DAILY 07/11/22 tablet trazodone 50 mg tablet 50 - 100 mg PO BEDTIME 07/11/22 venlafaxine 150 mg 150 mg PO DAILY 07/11/22 capsule,extended release 24 hr cetirizine 10 mg tablet 10 mg PO DAILY 12/12/22 cyanocobalamin (vitamin B-12) 1,000 mcg PO DAILY 12/12/22 1,000 mcg tablet Previous Rx's Medication Instructions Recorded metoprolol succinate 25 mg 25 mg PO DAILY 90 days #90 tabs 06/11/20 tablet,extended release 24 hr ondansetron HCl 4 mg tablet 4 mg PO Q8H PRN nausea and 07/03/20 (Zofran) vomiting #10 tabs ibuprofen 600 mg tablet 600 mg PO Q8H PRN pain #30 tabs 07/20/22 lansoprazole 30 mg capsule,delayed 30 mg PO DAILY #30 caps 11/29/22 release guaifenesin 1,200 mg tablet, 1,200 mg PO BID #90 tabs 12/12/22 extended release 12 hr (Mucinex) Allergies Allergy/AdvReac Type Severity Reaction Status Date / Time No Known Allergies Allergy Verified 12/12/22 10:16 [No Known Allergies*] Review of Systems Review of Systems: Constitutional : No Weight loss, No Fever, No Chills, No Night Sweats, No Fatigue, No Malaise ENT/Mouth : No Hearing loss, No Ear Pain, No Nasal Congestion, No Sinus Pain, No Hoarseness, No sore throat, No Rhinorrhea, No Swallowing Difficulty Eyes: No Eye Pain, No Swelling, No Redness, No Foreign Body, No Discharge, No Vision Changes Cardiovascular : No Chest Pain, No SOB, No Dyspnea on Exertion, No Orthopnea, No Edema, No Palpitations Respiratory : No Cough, No Sputum, No Wheezing, No Smoke Exposure, No Dyspnea Gastrointestinal : No Nausea, No Vomiting, No Diarrhea, No Constipation, No abdominal Pain, No Hematochezia, No Melena Genitourinary : no irregular bleeding, No Dysuria, No Urinary Frequency, No Hematuria, No Urinary Incontinence, No Urgency, No Flank Pain, No Urinary Flow Changes, No Hesitancy Musculoskeletal : No joint pain, No Myalgias, No Joint Swelling Skin : No Skin Lesions, No rash Neuro : No Weakness, No Numbness, No Paresthesias, No Loss of Consciousness, No Dizziness, No Headache Psych : No Anxiety/Panic, No Depression, No SI/HI/AH/VH, admits to drinking alcohol Heme/Lymph: No Bruising, No Bleeding,No Lymphadenopathy Endocrine : No Polyuria, No Polydipsia, No Temperature Intolerance PMFSH Past Medical History Medical History Anxiety CHF (congestive heart failure) ETOH abuse Multinodular thyroid Surgical History History of esophagogastroduodenoscopy (EGD) Hx of colonoscopy Hx of hysterectomy Family History Family History Mother Cancer Father No problems noted. Social History Social History Household Members: Other Household Members Other:: roommate Housing: House Do you presently have visiting nurse or other home services: No Alcohol intake: never Patient Tobacco Use Status: Never used Tobacco Substance Use Type: Crack/Cocaine Advance Directives Date on File: 06/26/17 service: No Current occupational status: disabled Physical Exam ED Vital Signs: Vital Signs - 24 hr 02/14/23 19:00 Temperature 97.8 F Pulse Rate 87 Respiratory Rate 18 Blood Pressure 143/90 H Pulse Oximetry 95 Oxygen Delivery Method Room Air BMI result Body Mass Index 26.0 Const Other: Appearance: Alert. Oriented X3. No acute distress. Eyes: Pupils equal, round and reactive to light. ENT: Pharynx normal. Neck: Normal inspection. Neck supple. No lymph nodes noted. No crepitus CVS: Normal heart rate and rhythm. Pulses normal. Normal S1 and S2 Respiratory: No respiratory distress. Breath sounds normal. No Wheezing. No rales Abdomen: Soft and nontender. No rigidity. No distention. Skin: Skin warm and dry. Normal skin color. Normal skin turgor. Extremities: No lower extremity edema. No Lacerations. No Rash Neuro: Oriented X 3. No motor deficit. No sensory deficit. Moving all extremities. No slurred speech. CN 2 through 12 grossly intact Psych: calm, cooperative, normal affect Medical Decision Making Medical Decision Making MDM Narrative: -patient is awake, alert and oriented x3, no acute distress, sober -most of patient's labs are pending. Patient feels well, patient is asymptomatic. Patient has a sober ride. Patient states that she does not want to wait for her labs to return and is requesting to be discharged. -patient calm, cooperative, clinically sober. Lab Data 02/14/23 19:45 02/14/23 19:45 Labs: Lab Results 02/14/23 02/14/23 Range/Units 19:10 19:45 WBC 5.5 (4.8-10.8) X10*3/uL RBC 4.39 (4.20-5.50) X10*6/uL Hgb 14.8 (12.0-16.0) g/dl Hct 43.9 (37.0-47.0) % MCV 100.0 H (80.0-98.0) fL MCH 33.7 H (27.0-33.0) pg MCHC 33.7 (31.0-35.0) g/dl RDW 13.1 (11.0-16.0) % Plt Count 181 (160-400) X10*3/uL MPV 9.5 (9.4-12.3) fL Immature Gran % (Auto) 0.7 H (0.0-0.4) % Neut % (Auto) 38.5 L (45-73) % Lymph % (Auto) 49.0 H (20-40) % [place] % (Auto) 9.3 (2-11) % Eos % (Auto) 1.6 (0-4) % Baso % (Auto) 0.9 (0-2) % Lymph # (Auto) 2.7 (1.2-4.9) X10*3/uL [place] # (Auto) 0.5 (0.1-1.2) X10*3/uL Eos # (Auto) 0.1 (0.0-0.4) X10*3/uL Baso # (Auto) 0.1 (0.0-0.2) X10*3/uL Abs Immat Gran (auto) 0.04 H (0.00-0.03) X10*3/uL Absolute Neuts (auto) 2.1 (2.0-8.3) x10*3/uL Absolute Nucleated RBC 0.000 (0.0-0.012) X10*3/uL Nucleated RBC % (auto) 0.0 (0.0-0.2) /100WBC Urine Opiates Screen Not Detected (Not Detect) Urine Fentanyl Screen Not Detected (Not Detect) Ur Barbiturates Screen Not Detected (Not Detect) Ur Phencyclidine Scrn Not Detected (Not Detect) Ur Amphetamines Screen Not Detected (Not Detect) U Benzodiazepines Scrn Not Detected (Not Detect) Urine Cocaine Screen Not Detected (Not Detect) U Marijuana (THC) Screen Not Detected (Not Detect) Discharge Plan Discharge Clinical Impression: Alcoholic intoxication Patient Disposition: Home, Self-Care Instructions: Alcohol Intoxication (ED) Additional Instructions: Please follow-up with your primary care physician tomorrow. If you have any worsening or new symptoms, please return to the emergency room or call 911 Prescriptions: No Action metoprolol succinate 25 mg tablet extended release 24 hr 25 mg PO DAILY 90 Days Qty: 90 4RF lansoprazole 30 mg capsule,delayed release(DR/EC) 30 mg PO DAILY Qty: 30 3RF ondansetron HCl [Zofran] 4 mg tablet 4 mg PO Q8H PRN (Reason: nausea and vomiting) Qty: 10 0RF ibuprofen 600 mg tablet 600 mg PO Q8H PRN (Reason: pain) Qty: 30 0RF folic acid 1 mg tablet 1 mg PO DAILY trazodone 50 mg tablet 50 - 100 mg PO BEDTIME hydroxyzine pamoate 50 mg capsule 50 mg PO BID PRN (Reason: anxiety) venlafaxine 150 mg capsule,extended release 24hr 150 mg PO DAILY thiamine HCl (vitamin B1) 100 mg tablet 100 mg PO DAILY ergocalciferol (vitamin D2) 1,250 mcg (50,000 unit) capsule 1,250 mcg PO QWEEK cyanocobalamin (vitamin B-12) 1,000 mcg tablet 1,000 mcg PO DAILY cetirizine 10 mg tablet 10 mg PO DAILY Mucinex 1,200 mg tablet extended release 12hr 1,200 mg PO BID Qty: 90 1RF
[2023-02-14 20:10] LABS: Ethanol 305 mg/dL
[2023-02-14 20:12] LABS: Alanine Aminotransferase 77 U/L (0-31); Albumin Level 4.7 g/dL (3.5-5.0); Alkaline Phosphatase 107 U/L (39-117); Anion Gap 20 (12-20); Aspartate Amino Transferase 166 U/L (5-31); Blood Urea Nitrogen 9 mg/dL (9-16); Calcium 9.8 mg/dL (8.4-10.2); Carbon Dioxide 21 mmol/L (22-29); Chloride 107 mmol/L (96-108); Creatinine Clr Calc Pharmacy 74.4; Estimated Glomerular Filt Rate > 60; Glucose Random 130 mg/dL (60-115); Potassium 4.5 mmol/L (3.3-5.1); Sodium 143 mmol/L (135-145); Total Protein 8.1 g/dL (6.5-8.0)
== END 2023-02-14 20:15 | disposition home or self-care (01) ==
PROVIDERS: Emergency Provider Emergency Medicine
DX: F10.129 Alcohol abuse with intoxication, unspecified (principal); Y90.9 Presence of alcohol in blood, level not specified; Z79.899 Other long term (current) drug therapy
CPT/HCPCS: 36415; 80053; 80307; 85025; 99284

== ENCOUNTER 2023-02-22 09:29 | Outpatient (REF) | payer OTHER, SELFPAY ==
--- NOTE | ~2023-02-22 | US_ITS ---
EXAMINATION: US ABDOMEN COMPLETE CLINICAL INFORMATION: Alcohol use with elevated LFTs. COMPARISON: CT abdomen and pelvis 05/01/2022. Ultrasound abdomen 01/21/2018 and 04/01/2016. TECHNIQUE: Real-time imaging of the abdominal viscera. FINDINGS: PANCREAS: Obscured by bowel gas and could not be seen. ABDOMINAL AORTA: The mid and distal aorta appeared unremarkable. The proximal aorta was obscured by bowel gas. INFERIOR VENA CAVA: The IVC could not be seen. LIVER: The liver is normal-sized but with increased echogenicity (image 47/69) suggesting hepatic steatosis. The liver contour is normal. No focal hepatic lesion. There is no intrahepatic biliary duct dilatation seen. GALLBLADDER: The gallbladder is physiologically distended without evidence of stones, sludge, polyps, wall thickening or pericholecystic fluid. COMMON BILE DUCT: Normal in caliber measuring 0.4 cm in diameter. RIGHT KIDNEY: No hydronephrosis. No renal calculi or focal parenchymal lesions. The kidney measures 9.5 cm in maximum dimension. LEFT KIDNEY: No hydronephrosis. No renal calculi or focal parenchymal lesions. The kidney measures 9.6 cm in maximum dimension. SPLEEN: The spleen measures 8.2 cm in maximum dimension. FREE FLUID: None. US/US abdomen complete IMPRESSION: Echogenic liver suggesting hepatic steatosis.
== END 2023-02-22 09:30 | disposition home or self-care (01) ==
LOC: HO.US 09:29
PROVIDERS: PCP Family Medicine; Visit Provider Family Medicine
DX: R94.5 Abnormal results of liver function studies (principal); F10.20 Alcohol dependence, uncomplicated; E04.2 Nontoxic multinodular goiter
CPT/HCPCS: 76700

== ENCOUNTER → 2023-03-21 09:54 | Outpatient (REF) | payer OTHER, SELFPAY ==
--- NOTE | 2023-03-21 09:59 | CA_ITS ---
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 Normal LV systolic function with LVEF of 55-60% 2. Mild aortic regurgitation 3. Mildly dilated ascending aorta at 3.8 cm 4. Normal RV systolic pressure 5. No pericardial effusion Findings Left Ventricle Normal left ventricular size, thickness, and systolic function. The visually estimated ejection fraction is between 55-60%. Spectral Doppler is indicative of a normal filling pattern. Right Ventricle Normal right ventricular cavity size and systolic function. Atria Both atria are normal in size. Interatrial shunt cannot be excluded. Aortic Valve Normal aortic valve structure and function. There is no aortic valve stenosis. There is mild aortic valve regurgitation. Mitral Valve Normal mitral valve structure and function. There is trace mitral valve regurgitation. There is no mitral valve stenosis. Pulmonic Valve The pulmonic valve was not well visualized. Tricuspid Valve Likely normal tricuspid valve structure and function. There is trace tricuspid valve regurgitation. The right ventricular systolic pressure is normal. The right ventricular systolic pressure is 23 mmHg. Normal right atrial pressure. There is no evidence of pulmonary hypertension. Great Vessels There is mild dilatation of the ascending aorta measuring 3.80 cm. Venous The inferior vena cava was not well visualized. Pericardium/Pleural There is no evidence of pericardial effusion. Prior Study Comparison No significant change compared to prior study dated: 01/24/2018. Measurements 2D Linear Measurements IVSd: 1.06 0.6-0.9/0.6-1.0 cm LVIDd: 4.07 3.9-5.3/4.2-5.9 cm LVIDd Index: 2.39 2.4-3.2/2.2-3.1 cm/m2 LVIDs: 2.88 2.0-3.6 cm LVPWd: 0.98 0.7-1.1 cm LA Diam: 3.00 2.7-3.8/3.0-4.0 cm LAIDs Index: 1.76 1.5-2.3 cm/m2 LV Mass: 167.22 67-162/88-224 g LV Mass Index: 98.37 43-95/49-115 g/m2 LVOT Diam: 2.00 3.0+(-)1.3 cm 2D Systolic Function EF 4C: 57.70 >55% EF 2C: 51.90 >55% Mitral Valve MV Pk E: 0.76 MV PK A: 0.67 MV Decel Time: 169.00 E/A: 1.10 E'Lateral: 8.05 E'Medial: 5.00 E/E' Med: 15.20 E/E' Lat: 9.40 PHT: 50.00 MVA PHT: 4.40 Decel [place]: 4.49 Aortic Valve AoV Pk [place]: 1.26 AoV Mn [place]: 0.94 AoV VTI: 0.27 AoV Pk Grad: 6.00 Aov Mn Grad: 4.00 VEENA Cont.VTI: 2.02 LVOT LVOT Pk [place]: 0.86 LVOT Mn [place]: 0.55 LVOT VTI: 0.17 LVOT Pk Grad: 3.00 LVOT Mn Grad: 1.00 LVOT Diam: 2.00 LVOT Area: 3.14 Diastolic Function MV Pk E: 0.76 MV Pk A: 0.67 E/A: 1.10 E'Medial: 5.00 E/E' Med: 15.20 E' Laterial: 8.05 E/E' Lat: 9.40 Right Ventricle TAPSE (mm): 18.70 TVS' [place]: 9.90 Tricuspid Valve TR Pk [place]: 2.24 TR Pk Grad: 20.00 RA Press: 3.00 RVSP: 23.00 Great Vessels Aorta Sinus of Valsalva: 3.45 2.0-3.[address] [place]: 2.90 1.7-3.4 cm Ao Asc: 3.80 2.1-3.4 cm Updated in Other Vendor System with Status of Final Pietro Becerra MD electronically signed on 03/21/2023 12:45:28 PM with status of Final
== END ==
LOC: HO.CARD 09:54
PROVIDERS: Visit Provider Family Medicine
DX: I42.6 Alcoholic cardiomyopathy (principal)
CPT/HCPCS: 93306

== ENCOUNTER → 2023-03-21 09:59 | Outpatient (BNV) | payer OTHER, SELFPAY | PROVIDERS: Visit Provider Internal Medicine Cardiovascular Disease | DX: I35.1 Nonrheumatic aortic (valve) insufficiency (principal) | CPT/HCPCS: 93306 ==

== ENCOUNTER 2023-04-27 11:19 | Emergency (ER) | payer OTHER, SELFPAY ==
[2023-04-27 11:29] VITALS: BP 143/104; BP 166/101; PULSE 128; RESP 20; TEMP 36.5; O2SAT 98; O2SAT 99; BMI 24.3
--- NOTE | 2023-04-27 11:41 | ED.ALCOHOL ---
HPI - Alcohol General Chief Complaint: ETOH/Substance Use Stated Complaint: VOMITING D/T ETOH WITHDRAWAL PER FACILITY Time Seen by Provider: 04/27/23 11:25 Source: patient and old records reviewed Mode of arrival: EMS Limitations: no limitations History of Present Illness HPI narrative: 62 yo female with hx of depression, ETOH abuse drinks a bottle of wine a day, esophagitis, thyroid disease, cardiomyopathy went to [facility] clinic today for routine therapy appointment she was sweaty tremulous and nauseated - her last drink was last night. She has no SI and states she isn't sure she wants to go to detox. She has never had a seizure before. She has nausea now. She denies any other issues at this time MD complaint: alcohol withdrawal Last drink: Hours (ago) (before bed) Chronic alcohol use: Yes Previous visits for alcohol intoxication: Yes Recent trauma: No Associated symptoms: nausea, diaphoresis and tremors Treatments prior to arrival: none Related Data Home Medications Medication Instructions Recorded Confirmed folic acid 1 mg tablet 1 mg PO DAILY 09/29/20 06/07/22 ergocalciferol (vitamin D2) 1,250 1,250 mcg PO QWEEK 07/11/22 mcg (50,000 unit) capsule hydroxyzine pamoate 50 mg capsule 50 mg PO BID PRN anxiety 07/11/22 thiamine HCl (vitamin B1) 100 mg 100 mg PO DAILY 07/11/22 tablet trazodone 50 mg tablet 50 - 100 mg PO BEDTIME 07/11/22 venlafaxine 150 mg 150 mg PO DAILY 07/11/22 capsule,extended release 24 hr cetirizine 10 mg tablet 10 mg PO DAILY 12/12/22 cyanocobalamin (vitamin B-12) 1,000 mcg PO DAILY 12/12/22 1,000 mcg tablet Previous Rx's Medication Instructions Recorded metoprolol succinate 25 mg 25 mg PO DAILY 90 days #90 tabs 06/11/20 tablet,extended release 24 hr ondansetron HCl 4 mg tablet 4 mg PO Q8H PRN nausea and 07/03/20 (Zofran) vomiting #10 tabs ibuprofen 600 mg tablet 600 mg PO Q8H PRN pain #30 tabs 07/20/22 lansoprazole 30 mg capsule,delayed 30 mg PO DAILY #30 caps 11/29/22 release guaifenesin 1,200 mg tablet, 1,200 mg PO BID #90 tabs 12/12/22 extended release 12 hr (Mucinex) Allergies Allergy/AdvReac Type Severity Reaction Status Date / Time No Known Allergies Allergy Verified 12/12/22 10:16 [No Known Allergies*] Review of Systems Review of Systems: Constitutional : No Fever, No Chills, No Fatigue, pos sweats ENT/Mouth : No sore throat, No Rhinorrhea Eyes: No Eye Pain, No Swelling, No Redness Cardiovascular : No Chest Pain, No SOB, No Dyspnea on Exertion Respiratory : No Cough, No Sputum Gastrointestinal : pos Nausea, No Vomiting, No Diarrhea, No abdominal Pain Genitourinary : No Dysuria, No Urinary Frequency, No Hematuria, Musculoskeletal : No joint pain, No Myalgias, No Joint Swelling Skin : No Skin Lesions, No rash Neuro : No Weakness, No Numbness, No Dizziness, no Headache Psych : pos Anxiety/Panic, No Depression Heme/Lymph: No Bruising, No Bleeding,No Lymphadenopathy Endocrine : No Polyuria, No Polydipsia All other systems reviewed and are negative [facility] Past Medical History Attestation statement: The following information was validated with the patient. Medical History Anxiety CHF (congestive heart failure) ETOH abuse Multinodular thyroid Surgical History History of esophagogastroduodenoscopy (EGD) Hx of colonoscopy Hx of hysterectomy Family History Family History Mother Cancer Father No problems noted. Social History Social History Household Members: Other Household Members Other:: roommate Housing: House Do you presently have visiting nurse or other home services: No Alcohol intake: current Alcohol intake frequency: 3 or more drinks per day Alcohol type: wine Patient Tobacco Use Status: Never used Tobacco Smoked in Last 30 Days: No Use of substances other than those prescribed or required for medical reasons: No Substance Use Type: Crack/Cocaine Advance Directives: No Advance Directives Date on File: 06/26/17 service: No Current occupational status: disabled Physical Exam ED Vital Signs: Vital Signs - 24 hr 04/27/23 11:29 04/27/23 13:02 04/27/23 15:21 Temperature 97.7 F 98.6 F Pulse Rate 128 H 104 H 100 Respiratory Rate 20 13 12 Blood Pressure 166/101 H 136/63 141/76 H Pulse Oximetry 99 96 95 Oxygen Delivery Method Room Air Room Air Room Air BMI result Body Mass Index 24.3 Appearance: Alert. Oriented X3. anxious mild acute distress. Eyes: Pupils equal, round and reactive to light. ENT: Pharynx normal. Neck: Normal inspection. Neck supple. CVS: tachycardic heart rate and rhythm. Pulses normal. Respiratory: No respiratory distress. Breath sounds normal. Abdomen: Soft and nontender. Skin: Skin warm and diaphoretic. Normal skin color. Normal skin turgor. Extremities: No lower extremity edema. No calf ttp Neuro: Oriented X 3. No motor deficit. No sensory deficit. tremulous Course Course Course Narrative: patient drastically improved after one dose of IV ativan - offered recovery team to see her - IVF and magnesium being infused no tremors no diaphoresis - PRN ativan ordered clinically improved tolerating PO stable for DC Medical Decision Making Medical Decision Making [facility] Narrative: 62 yo female with hx of depression, ETOH abuse drinks a bottle of wine a day, esophagitis, thyroid disease, cardiomyopathy here with nausea, tremors and diaphoresis - she has no SI/HI. She has not had a withdrawal seizure before she is not sure she wants detox - at this time given symptoms will dose with IVF, thiamine, magnesium and IV ativan if she improves and doesn't want treatment can be DC but if she does not improve will start on phenobarb protocol. Differential Diagnosis Differential Diagnoses: The differential diagnosis associated with the presentation includes ETOH withdrawal, lyte abnormality Admission/Observation Consideration of admission/observation: Escalation of care including admission/observation considered no indication admission - improved with one dose of IV ativan does not want detox declined services Consult Healthcare Provider Management of the patient was discussed with: Behavioral Health Provider declined detox services Lab Data [facility] Lab Attestation statement: I reviewed the patient's lab results. 04/27/23 12:11 04/27/23 12:11 Labs: Lab Results 04/27/23 04/27/23 Range/Units 13:11 13:11 WBC 6.8 (4.8-10.8) X10*3/uL RBC 3.94 L (4.20-5.50) X10*6/uL Hgb 14.0 (12.0-16.0) g/dl Hct 39.7 (37.0-47.0) % MCV 100.8 H (80.0-98.0) fL MCH 35.5 H (27.0-33.0) pg MCHC 35.3 H (31.0-35.0) g/dl RDW 12.9 (11.0-16.0) % Plt Count 161 (160-400) X10*3/uL MPV 10.0 (9.4-12.3) fL Immature Gran % (Auto) 0.3 (0.0-0.4) % Neut % (Auto) 78.5 H (45-73) % Lymph % (Auto) 9.4 L (20-40) % [place] % (Auto) 10.7 (2-11) % Eos % (Auto) 0.4 (0-4) % Baso % (Auto) 0.7 (0-2) % Lymph # (Auto) 0.6 L (1.2-4.9) X10*3/uL [place] # (Auto) 0.7 (0.1-1.2) X10*3/uL Eos # (Auto) 0.0 (0.0-0.4) X10*3/uL Baso # (Auto) 0.1 (0.0-0.2) X10*3/uL Abs Immat Gran (auto) 0.02 (0.00-0.03) X10*3/uL Absolute Neuts (auto) 5.3 (2.0-8.3) x10*3/uL Absolute Nucleated RBC 0.000 (0.0-0.012) X10*3/uL Nucleated RBC % (auto) 0.0 (0.0-0.2) /100WBC Sodium 141 (135-145) mmol/L Potassium 3.4 D (3.3-5.1) mmol/L Chloride 108 (96-108) mmol/L Carbon Dioxide 21 L (22-29) mmol/L Anion Gap 15 (12-20) BUN 4 L (9-16) mg/dL Creatinine 0.71 (0.5-1.4) mg/dL Estim Creat Clear Calc 70.0 Estimated GFR > 60 Random Glucose 132 H (60-115) mg/dL Calcium 9.5 (8.4-10.2) mg/dL Magnesium 1.4 L* (1.6-2.6) mg/dL Total Bilirubin 2.0 H (0.0-1.0) mg/dL Direct Bilirubin 1.1 H (0.0-0.5) mg/dL AST 214 H (5-31) U/L ALT 95 H (0-31) U/L Alkaline Phosphatase 128 H (39-117) U/L Total Protein 7.1 (6.5-8.0) g/dL Albumin 4.1 (3.5-5.0) g/dL Lipase 27 (8-78) U/L Ethyl Alcohol < 10 mg/dL Independent Interpretation I performed an independent interpretation of an: EKG Interpretation: Rate: 118 Rhythm: sinus tach [place]: normal Normal P waves. Normal MED. Normal QRS complex. ST T wave : normal no BRYNN, artifact noted qTC: normal prior studies: no acute ischemia The study has been interpreted contemporaneously by me. . Independent Historian Clinical information obtained from an independent historian. History obtained from or confirmed by: Other (therapist at bedside) External Record Review External record reviewed: Inpatient record Medications Administered Discontinued Medications Generic Name Dose Route Start Last Admin Trade Name Freq PRN Reason Stop Dose Admin Magnesium Sulfate 2 gm in 50 mls @ 25 mls/hr 04/27/23 11:34 04/27/23 12:22 Magnesium Sulfate/H2o IV 04/27/23 13:33 25 mls/hr ONCE ONE Administration Sodium Chloride 500 mls @ 500 mls/hr 04/27/23 11:45 04/27/23 13:12 Ns IV 04/27/23 12:44 Infused .Q1H ADELIA Infusion Thiamine HCl 200 mg/ Sodium 102 mls @ 204 mls/hr 04/27/23 11:34 04/27/23 13:12 Chloride IV 04/27/23 12:03 Infused ONCE ONE Infusion Lorazepam 2 mg 04/27/23 11:34 04/27/23 12:21 Lorazepam 2 Mg/Ml Vial IVPUSH 04/27/23 11:35 2 mg ONCE ONE Administration Ondansetron HCl 4 mg 04/27/23 11:34 04/27/23 12:21 Ondansetron Hcl 4 Mg/2 Ml Vial IVPUSH 04/27/23 11:35 4 mg ONCE ONE Administration Critical Care Time Critical Care Time Critical Care Time: Yes Total Critical Care Time: 45 Attestation: doing well post IV ativan, fluids and repletion of IV magnesium I attest to this time spent taking care of the patient Discharge Plan Discharge Clinical Impression: Hypomagnesemia Alcohol withdrawal syndrome Qualifiers: Complication of substance-induced condition: uncomplicated Qualified Code(s): F10.930 - Alcohol use, unspecified with withdrawal, uncomplicated Patient Disposition: Home, Self-Care Instructions: Abuse of Alcohol (ED), Alcohol Withdrawal (ED), Hypomagnesemia (ED) Additional Instructions: please consider detox you were offered here but declined. return for numbness, weakness, vomiting, confusion Prescriptions: No Action metoprolol succinate 25 mg tablet extended release 24 hr 25 mg PO DAILY 90 Days Qty: 90 4RF lansoprazole 30 mg capsule,delayed release(DR/EC) 30 mg PO DAILY Qty: 30 3RF ondansetron HCl [Zofran] 4 mg tablet 4 mg PO Q8H PRN (Reason: nausea and vomiting) Qty: 10 0RF ibuprofen 600 mg tablet 600 mg PO Q8H PRN (Reason: pain) Qty: 30 0RF folic acid 1 mg tablet 1 mg PO DAILY trazodone 50 mg tablet 50 - 100 mg PO BEDTIME hydroxyzine pamoate 50 mg capsule 50 mg PO BID PRN (Reason: anxiety) venlafaxine 150 mg capsule,extended release 24hr 150 mg PO DAILY thiamine HCl (vitamin B1) 100 mg tablet 100 mg PO DAILY ergocalciferol (vitamin D2) 1,250 mcg (50,000 unit) capsule 1,250 mcg PO QWEEK cyanocobalamin (vitamin B-12) 1,000 mcg tablet 1,000 mcg PO DAILY cetirizine 10 mg tablet 10 mg PO DAILY Mucinex 1,200 mg tablet extended release 12hr 1,200 mg PO BID Qty: 90 1RF
--- NOTE | 2023-04-27 11:45 | ECG_ITS ---
Test Reason : ETOH Blood Pressure : / mmHG Vent. Rate : 118 BPM Atrial Rate : 118 BPM P-R Int : 134 ms QRS Dur : 064 ms QT Int : 304 ms P-R-T Axes : 004 026 013 degrees QTc Int : 426 ms Poor data quality, interpretation may be adversely affected Sinus tachycardia Nonspecific ST abnormality Abnormal ECG When compared with ECG of 01-MAY-2022 21:59, Heart rate has increased Referred By: Gem Armijo Electronically Signed By:CARRIE OGLESBY
[2023-04-27] MEDS: ondansetron HCL 4 MG/2 ML VIAL IVPUSH (12:21)
[2023-04-27] MEDS: Thiamine HCL 200 MG in 0.9 % Sodium Chloride 100 ML 204 MG IV (12:21)
[2023-04-27] MEDS: LORazepam 2 MG/ML VIAL IVPUSH (12:21)
[2023-04-27] MEDS: Magnesium Sulfate/H2O 2 GM/50 ML PIGGYBACK IV (12:22)
[2023-04-27] MEDS: 0.9 % Sodium Chloride 500 ML IV (12:23)
[2023-04-27 13:02] VITALS: BP 136/63; PULSE 104; RESP 13; TEMP 37; O2SAT 96
[2023-04-27 13:19] LABS: Basophils Absolute Auto 0.1 X10*3/uL (0.0-0.2); Basophils Percent Auto 0.7 % (0-2); Eosinophils Percent Auto 0.4 % (0-4); Hematocrit 39.7 % (37.0-47.0); Imm Gran Abs Auto 0.02 X10*3/uL (0.00-0.03); Imm Gran Pct Auto 0.3 % (0.0-0.4); Lymphocytes Absolute Auto 0.6 X10*3/uL (1.2-4.9); Lymphocytes Percent Auto 9.4 % (20-40); Mean Corpuscular HGB Conc 35.3 g/dl (31.0-35.0); Mean Corpuscular Hemoglobin 35.5 pg (27.0-33.0); Mean Corpuscular Volume 100.8 fL (80.0-98.0); Monocytes Absolute Auto 0.7 X10*3/uL (0.1-1.2); Monocytes Percent Auto 10.7 % (2-11); Neutrophils Absolute Auto 5.3 x10*3/uL (2.0-8.3); Neutrophils Percent Auto 78.5 % (45-73); Platelet Count 161 X10*3/uL (160-400); Red Blood Count 3.94 X10*6/uL (4.20-5.50); Red Cell Distribution Width 12.9 % (11.0-16.0); White Blood Count 6.8 X10*3/uL (4.8-10.8)
[2023-04-27 13:51] LABS: Alanine Aminotransferase 95 U/L (0-31); Albumin Level 4.1 g/dL (3.5-5.0); Alkaline Phosphatase 128 U/L (39-117); Anion Gap 15 (12-20); Aspartate Amino Transferase 214 U/L (5-31); Bilirubin Direct 1.1 mg/dL (0.0-0.5); Blood Urea Nitrogen 4 mg/dL (9-16); Calcium 9.5 mg/dL (8.4-10.2); Carbon Dioxide 21 mmol/L (22-29); Chloride 108 mmol/L (96-108); Estimated Glomerular Filt Rate > 60; Ethanol < 10 mg/dL; Glucose Random 132 mg/dL (60-115); Lipase 27 U/L (8-78); Potassium 3.4 mmol/L (3.3-5.1); Sodium 141 mmol/L (135-145); Total Protein 7.1 g/dL (6.5-8.0)
[2023-04-27 13:52] LABS: Magnesium 1.4 mg/dL (1.6-2.6)
[2023-04-27 15:21] VITALS: BP 141/76; PULSE 100; RESP 12; O2SAT 95
--- NOTE | 2023-04-27 15:30 | MHC.RECOVSUP ---
Met with pt in ED1 who is here for MILO. Pt informs she has been drinking 1 bottle of wine a day since her passed 2 years ago but has been drinking her whole life. Pt informs she has been on Campral before but it did not work for her and is not interested in MAT at this time. Pt informs she is not interested in ATS at this time but will be seeing her therapist weekly and will consider reaching out to a mechanic recovery. T/W reviewed harm reduction and recovery resources with pt. Pt has no questions or concerns at this time.
== END 2023-04-27 15:48 | disposition home or self-care (01) ==
PROVIDERS: Emergency Provider Emergency Medicine; PCP Family Medicine
DX: E83.42 Hypomagnesemia (principal); F10.130 Alcohol abuse with withdrawal, uncomplicated; Y90.0 Blood alcohol level of less than 20 mg/100 ml
CPT/HCPCS: 36415; 80048; 80076; 80307; 83690; 83735; 85025; 93005; 96365; 96366; 96367; 96375; 99285; J2060; J2405; J3411; J3475

== ENCOUNTER 2023-05-11 12:59 | Outpatient (AMB) | payer OTHER, SELFPAY ==
[2023-05-11 13:14] VITALS: BP 124/90; BMI 24.1
--- NOTE | 2023-05-11 13:14 | MHC.OFFVIS ---
Intake Vital Signs 05/11/23 13:14 Height 5 ft 4 in Weight 140 lb 10.479 oz BMI 24.1 BP 124/90 H Blood Pressure Location Lt brachial Position Sitting Intake Visit Reasons: Multiple Thyroid Nodules Intake Note: Patient present today for Thyroid Nodules follow up visit. Pc Technician Required: No Accompanied by: Self / Same As Patient Allergies No Known Allergies [No Known Allergies*] Allergy (Verified 05/11/23 13:21) HPI HPI Comments History of Present Illness Details 62 YO F with who is seen in consultation for multinodular thyroid at the request of PCP. Was initially diagnosed with multinodular thyroid in many yrs Pt has MNG S/P FNA many yrs with last in 2019 of R upperpole nodule with sparsely but benign cytology and L nodules were non-diagnostic. No obstructive sx PFSH Medical History Anxiety CHF (congestive heart failure) ETOH abuse Multinodular thyroid Surgical History History of esophagogastroduodenoscopy (EGD) Hx of colonoscopy Hx of hysterectomy Family History Mother Cancer Father No problems noted. Social History Household Members: Other Household Members Other:: roommate Housing: House Do you presently have visiting nurse or other home services: No Alcohol intake: current Alcohol intake frequency: 3 or more drinks per day Alcohol type: wine Patient Tobacco Use Status: Never used Tobacco Substance Use Type: Crack/Cocaine Advance Directives Date on File: 06/26/17 service: No Current occupational status: disabled Physical Exam Vital Signs: Last Vital Signs BP 124/90 H 05/11/23 13:14 HEENT reveals absence of lid lag , stare or proptosis or eyebrow loss. Thyroid gland measure 15 gms . No nodules or tenderness palpated. There is no cervical adenopathy palpated. Lungs CTA. Heart S1, S2 Reg R/R -M/R/G. Abdominal exam benign. Skin exam reveals absence of dryness or thyroid dermopathy or vitiligo. Nail exam reveals absence of thyroid acropachy or oncholysis. Neurologic exam reveals 2+ reflexes . Muscle Strength is 5/5 proximally. There are no tremors in upper extremities. Assessment & Plan Assessment & Plan (1) Multinodular thyroid: Code(s): E04.2 - Nontoxic multinodular goiter Plan: This is a 62-year-old white female with a history of multinodular goiter. Ultrasound is not available time of consultation. She appears to be clinically euthyroid Plan is to review previous records when available. Will check TSH and free T4. Will also obtain repeat thyroid ultrasound. Further actually taken if the above Orders: Orders Free T4 (Free Thyroxine) Today E04.2 - Nontoxic multinodular goiter Thyroid Stimulating Hormone Today E04.2 - Nontoxic multinodular goiter US thyroid Today E04.2 - Nontoxic multinodular goiter Coding Level of Care Code Est Pt Level 3 (61624) Diagnoses Multinodular thyroid E04.2
== END 2023-05-11 13:47 | disposition home or self-care (01) ==
PROVIDERS: PCP Family Medicine; Visit Provider Internal Medicine Endocrinology, Diabetes & Metabolism
DX: E04.2 Nontoxic multinodular goiter (principal)
CPT/HCPCS: 99213

== ENCOUNTER → 2023-05-11 12:59 | Outpatient (BNVA) | payer OTHER, SELFPAY | PROVIDERS: PCP Family Medicine; Visit Provider Internal Medicine Endocrinology, Diabetes & Metabolism | DX: E04.2 Nontoxic multinodular goiter (principal) | CPT/HCPCS: 99212 ==

== ENCOUNTER 2023-06-19 10:52 | Outpatient (AMB) | payer OTHER, SELFPAY ==
--- NOTE | 2023-06-19 11:03 | MHC.OFFVIS ---
Intake Vital Signs 06/19/23 11:05 Height 5 ft 4 in Weight 138 lb 14.259 oz BMI 23.8 BP 138/68 Blood Pressure Location Lt brachial Position Sitting Pulse 92 Intake Visit Reasons: 6 month follow up Intake Note: Nubia presents in the office as a 6 month follow up. CC: She states that she she is just having issues with her stomach. She states her stomach does not work right. She states that she throws up alot. Allergies No Known Allergies [No Known Allergies*] Allergy (Verified 06/19/23 11:05) HPI 6 month follow up HPI Details RECAP: ? Had seen Dr Galvan 2014 for esophagitis had EGD with erosive esophagitis, anal fissure and internal hemorhroids ? at index visist with me : c/o 2 weeks of nausea and vomiting ? she drinks wine and apple juice every day, and confeses she is alcoholic for at least 10 yrs ? she was having diarrhea, but now stools are normal ? she admits the vomiitng may be due to stress due to poor living situation and sx worse with anxiety ? she has some pain under the breast ? pain not worse with food ? she takes omeprazole daily and she thns it could do better. she had been at [facility] ED 06/2020 for alcohol abuse she went to ENT due to nausea and vomiting and inflammation in her throat--she was told there was nothing wrong with her per her report she was admitted to hospital 04/2022 for alcoholic gastritis US 02/2023-- steatosis of liver, otherwise nml ? INTERIM: She still drinks a bottle of wine daily (its all I have--she knows the alcohol is bad for her) she has been compliant with PPI she throws up every morning, usually she has a coughing bout first then followed by xs mucous then she has vomiting the rest of the day she is fine she never got the mucinex she does have zirtek at home no black stools, no rectal bleeding appetite is good EXAM: GENERAL: The patient is well developed and nontoxic. VITAL SIGNS:see workflow HEENT: Nonicteric sclerae, PERRLA, EOMI. Oropharynx clear. Moist mucous membranes. Conjunctivae appear well perfused. No thyroid mass. CHEST: Chest wall is nontender. HEART: Regular rate and rhythm without murmurs. LUNGS: Clear to auscultation bilaterally. ABDOMEN: Soft, positive bowel sounds, nontender, no organomegaly.no flank tenderness SKIN: No rash, no excessive bruising, petechiae, or purpura. NEUROLOGIC: Cranial nerves II-XII intact without motor/sensory deficit. Assessments ? 1/ alcohol xs and dependance, not interested in help or stopping 2/ alcoholic gastritis, on PPI, morning nausea and vomiting malvin due to her alcohol use PLAN: 1/ cont with PPI 2/ resent mucinex also trial of morning zofran and zirtek 3/ reinforced alcohol avoidance but she says she is unlikely to stop as above 4/ recheck labs next visit [facility] Medical History Anxiety CHF (congestive heart failure) ETOH abuse Multinodular thyroid Surgical History History of esophagogastroduodenoscopy (EGD) Hx of colonoscopy Hx of hysterectomy Family History Mother Cancer Father No problems noted. Social History Household Members: Other Household Members Other:: roommate Housing: House Do you presently have visiting nurse or other home services: No Alcohol intake: current Alcohol intake frequency: 3 or more drinks per day Alcohol type: wine Patient Tobacco Use Status: Never used Tobacco Substance Use Type: Crack/Cocaine Advance Directives Date on File: 06/26/17 service: No Current occupational status: disabled Physical Exam Vital Signs: Last Vital Signs Pulse 92 06/19/23 11:05 BP 138/68 06/19/23 11:05 BMI result Body Mass Index 23.8 Assessment & Plan Assessment & Plan (1) Alcoholic steatohepatitis: Code(s): K70.10 - Alcoholic hepatitis without ascites Medications: New ondansetron 4 mg PO Q8H PRN 30 tabs 0RF nausea and vomiting Refilled guaifenesin ER (Mucinex) 1,200 mg PO BID 90 tabs 1RF Discontinued ondansetron HCl (Zofran) Discontinued Reason: Doctor's Order 4 mg PO Q8H PRN 10 tabs 0RF nausea and vomiting Coding Level of Care Code Est Pt Level 3 (12956) Diagnoses Alcoholic steatohepatitis K70.10
[2023-06-19 11:05] VITALS: BP 138/68; PULSE 92; BMI 23.8
== END 2023-06-19 11:39 | disposition home or self-care (01) ==
PROVIDERS: Visit Provider Internal Medicine Gastroenterology
DX: K70.10 Alcoholic hepatitis without ascites (principal)
CPT/HCPCS: 99213

== ENCOUNTER → 2023-06-19 10:52 | Outpatient (BNVA) | payer OTHER, SELFPAY | PROVIDERS: Visit Provider Internal Medicine Gastroenterology | DX: K70.10 Alcoholic hepatitis without ascites (principal) | CPT/HCPCS: 99212 ==

== ENCOUNTER 2023-06-30 15:51 | Inpatient (IN) | payer OTHER, SELFPAY ==
--- NOTE | ~2023-06-30 | XR_ITS ---
EXAMINATION: XR CHEST CLINICAL INFORMATION: Chest pain. COMPARISON: 05/01/2023 TECHNIQUE: 2 views of the chest were obtained. FINDINGS: The cardiomediastinal silhouette is normal. There is no focal lung consolidation or pleural effusion. The bony structures and soft tissues are unremarkable. XR/XR chest 2V IMPRESSION: No active cardiopulmonary disease.
[2023-06-30 16:09] VITALS: BP 123/91; BP 138/92; PULSE 100; PULSE 114; RESP 12; TEMP 37.1; O2SAT 100; O2SAT 98; BMI 24.7
--- NOTE | 2023-06-30 16:13 | ED_ITS ---
HPI - Neuro Symptoms/Deficit General Chief Complaint: Failure to Thrive Stated Complaint: FACIAL NUMBNESS Time Seen by Provider: 06/30/23 15:56 Source: patient Mode of arrival: EMS Limitations: no limitations History of Present Illness HPI Narrative: 62-year-old female who presents emergency department for evaluation of numbness in her face, chest and thighs. The patient states that 5 days prior she went to bed with dry lips and woke up in the morning with facial numbness. She states that both sides of her face are numb. She states the numbness is been constant. She states she has now developed numbness in her chest but it spares her arms. She also has numbness from her thighs to her knees. She states that she has had swelling of her lower extremities from the knees to her feet for 4 months and she feels like her feet are on fire over the past 4 months as well. She denied weakness. She states that she has a chronic cough which is nonproductive. She states she is experiencing pain in the center of the chest were the numbness is she describes this is a pinching sensation which is intermittent but frequent over the past 5 days. She states she has nausea and vomiting every day times years. The patient states that she drinks at least 1 bottle of wine per day times years. Her last drink was prior to coming to the emergency department. She states she has had no appetite and has not been eating or drinking fluid x1. She states she does have thiamine , folate and multivitamin but she is not taking these medications. Related Data Home Medications Medication Instructions Recorded Confirmed trazodone 50 mg tablet 50 mg PO BEDTIME PRN anxiety or 07/11/22 06/30/23 insomnia venlafaxine 150 mg 150 mg PO DAILY 07/11/22 06/30/23 capsule,extended release 24 hr Previous Rx's Medication Instructions Recorded metoprolol succinate 25 mg 25 mg PO DAILY 90 days #90 tabs 06/11/20 tablet,extended release 24 hr lansoprazole 30 mg capsule,delayed 30 mg PO DAILY #30 caps 06/16/23 release ondansetron 4 mg disintegrating 4 mg PO Q8H PRN nausea and 06/19/23 tablet vomiting #30 tabs Allergies Allergy/AdvReac Type Severity Reaction Status Date / Time No Known Allergies Allergy Verified 06/30/23 16:21 [No Known Allergies*] Review of Systems 2 Review of Systems: Yes all other systems are reviewed and are negative [facility] Past Medical History [facility] Narrative: Social history: She denies tobacco use. She drinks at least 1 bottle of wine per day with her last drink being prior to coming to the emergency department. She denies drug use. Medical History Multinodular thyroid Anxiety CHF (congestive heart failure) ETOH abuse Surgical History History of esophagogastroduodenoscopy (EGD) Hx of colonoscopy Hx of hysterectomy Family History Family History Mother Cancer Father No problems noted. Social History Social History Household Members: Other Household Members Other:: roommate Housing: House Do you presently have visiting nurse or other home services: No Alcohol intake: current Alcohol intake frequency: 0-2 drinks per day Alcohol type: wine Patient Tobacco Use Status: Never used Tobacco Second Hand Smoke Exposure: Yes Substance Use Type: Crack/Cocaine Advance Directives Date on File: 06/26/17 service: No Current occupational status: disabled Physical Exam 2 Vital Signs: Vital Signs: Last Vital Signs Temp 96.9 F 07/01/23 00:00 Pulse 99 07/01/23 00:00 Resp 18 07/01/23 00:00 BP 136/68 07/01/23 02:38 Pulse Ox 99 07/01/23 00:00 O2 Del Method Room Air 07/01/23 00:00 BMI result Body Mass Index 24.7 Exam General: Awake, alert in no distress Head: Normocephalic, atraumatic EENT: PERRL, Lids normal, sclera normal, conjunctiva normal, nose normal , ears normal, throat without erythema or exudates Neck: Supple, no adenopathy, no trachea midline or C-spine tenderness Lung: breath sounds symmetric, no wheezing, rales or rhonchi Chest: symmetric movement, nontender Heart: regular rate and rhythm, normal S1, S2 no murmurs or rubs Abdomen: soft, mild diffuse tenderness with no localization, nondistended, normal bowel sounds Back: no vertebral tenderness, no CVAT Extremities: no deformities, moves all extremities symmetrically Neuro: Awake, alert, oriented, normal speech, cranial nerves intact, moves all extremities symmetrically. Patient has symmetric decreased touch to both sides of her face, it spares her neck, she does have decreased light touch sensation in the center of her chest anteriorly but not posteriorly, also has decreased light touch sensation from her hip to her knee but can feel me touching her normally from her knee to her feet. Psych: Pleasant, cooperative Medications Administered Generic Name Dose Route Start Last Admin Trade Name Freq PRN Reason Stop Dose Admin Enoxaparin Sodium 40 mg 06/30/23 20:00 06/30/23 20:03 Enoxaparin Sodium 40 Mg/0.4 Ml Syringe SUBCUT 40 mg Q24H ADELIA Administration Folic Acid 1 mg 06/30/23 19:35 06/30/23 20:04 Folic Acid 1 Mg Tablet PO 1 mg DAILY ADELIA Administration Sodium Chloride 3 ml 07/01/23 00:00 06/30/23 23:11 0.9 % Sodium Chloride Flush 3 Ml Syringe IVFLUSH 3 ml QSHIFT ADELIA Administration Discontinued Medications Generic Name Dose Route Start Last Admin Trade Name Freq PRN Reason Stop Dose Admin Sodium Chloride 1,000 mls @ 999 mls/hr 06/30/23 16:14 06/30/23 18:46 Ns IV 06/30/23 17:14 Infused .Q1H1M STA Infusion Thiamine HCl 100 mg/ Sodium 101 mls @ 202 mls/hr 06/30/23 19:31 06/30/23 20:47 Chloride IV 06/30/23 20:00 Infused ONCE ONE Infusion Phenobarbital Sodium 328.9 mg 06/30/23 20:00 06/30/23 20:03 Phenobarbital Sodium 130 Mg/Ml Im Once IM 06/30/23 20:01 328.9 mg ONCE ONE Administration Protocol Phenobarbital Sodium 247 mg 06/30/23 23:00 07/01/23 02:49 Phenobarbital Sodium 130 Mg/Ml Vial Im Q3hx2 IM 07/01/23 02:01 247 mg Q3H ADELIA Administration Protocol Medical Decision Making Medical Decision Making [facility] Narrative: 62-year-old female with a history of alcohol use disorder, drinks 1 bottle of wine daily, cardiomyopathy, lumbar radiculopathy , esophagitis and multi nodular goiter presents emergency department for evaluation of 5 days of numbness in her entire face, anterior chest and bilateral thighs. Patient does continue to drink 1 bottle of wine per day and states she has very poor food and fluid intake. Patient is supposed to be taking folate, thiamine and a multivitamin but she has been noncompliant with these medications. Vital signs were unremarkable. Exam revealed normal strength but she did have decreased light touch sensation to both sides of her face, her mid anterior chest, and thighs bilaterally. Neurologic exam was otherwise nonfocal. Following evaluation was ordered: CBC, CK, CMP, magnesium, B12 and folate, COVID-19, lipase, PT/INR, PTT, troponin and TSH with reflex T4. Patient was given normal saline 1 L IV. 19:33 Patient's laboratory evaluation is consistent with her alcohol use disorder, she has a low MCV, elevated AST, ALT, alk-phos and bilirubin. Patient's folic acid was low. Patient's paresthesias of the most likely secondary to malnutrition and vitamin deficiencies. The patient states that whenever she stops drinking she gets very tremulous and the last time she required hospitalization in the phenobarbital protocol. Therefore, the patient will be started on phenobarbital and be admitted for detox. Patient will be placed on a CIWA scale every 4 hours. I did discuss the patient's presentation with the covering hospitalist, Dr. Ceja and he is going to order IV thiamine and also ordered multi-vitamin and folate orally. Differential Diagnosis Differential Diagnoses: The differential diagnosis associated with the presentation includes Differential diagnosis includes was not limited to viral syndrome, stroke, acute alcohol intoxication, electrolyte abnormalities, malnutrition secondary to alcohol use disorder Admission/Observation Consideration of admission/observation: Escalation of care including admission/observation considered Lab Data MDM Lab Attestation statement: I reviewed the patient's lab results. My interpretation patient's laboratory evaluation as follows: CBC was normal except for an elevated MCV of 107.-this is related to her alcohol use disorder suggestion that she is malnourished and has vitamin deficiencies. Glucose elevated 139. Bicarb low at 17 with an anion gap of 22-most likely secondary to alcoholic ketoacidosis. AST and ALT were elevated 152 and 48. Alk-phos elevated 196. These are chronic and most likely related to her continued alcohol use disorder pain bilirubin was elevated as well 2.4. Troponin was below detectable limits. Folic acid was low. TSH was normal. 06/30/23 16:44 06/30/23 16:44 Labs: Lab Results 06/30/23 06/30/23 06/30/23 Range/Units 16:44 16:46 18:18 WBC 7.6 (4.8-10.8) X10*3/uL RBC 3.52 L (4.20-5.50) X10*6/uL Hgb 13.6 (12.0-16.0) g/dl Hct 37.8 (37.0-47.0) % MCV 107.4 H (80.0-98.0) fL MCH 38.6 H (27.0-33.0) pg MCHC 36.0 H (31.0-35.0) g/dl RDW 15.1 (11.0-16.0) % Plt Count 224 D (160-400) X10*3/uL MPV 10.0 (9.4-12.3) fL Immature Gran % (Auto) 0.3 (0.0-0.4) % Neut % (Auto) 73.1 H (45-73) % Lymph % (Auto) 18.1 L (20-40) % Robeson % (Auto) 7.1 (2-11) % Eos % (Auto) 0.5 (0-4) % Baso % (Auto) 0.9 (0-2) % Lymph # (Auto) 1.4 (1.2-4.9) X10*3/uL Robeson # (Auto) 0.5 (0.1-1.2) X10*3/uL Eos # (Auto) 0.0 (0.0-0.4) X10*3/uL Baso # (Auto) 0.1 (0.0-0.2) X10*3/uL Abs Immat Gran (auto) 0.02 (0.00-0.03) X10*3/uL Absolute Neuts (auto) 5.5 (2.0-8.3) x10*3/uL Absolute Nucleated RBC 0.040 H (0.0-0.012) X10*3/uL Nucleated RBC % (auto) 0.5 H (0.0-0.2) /100WBC PT 14.1 H (11.1-13.3) SEC INR 1.2 H (0.9-1.1) APTT 36.5 H (26.0-36.4) SEC Sodium 137 (135-145) mmol/L Potassium 3.9 (3.3-5.1) mmol/L Chloride 102 (96-108) mmol/L Carbon Dioxide 17 L (22-29) mmol/L Anion Gap 22 H (12-20) BUN 5 L (9-16) mg/dL Creatinine 0.58 (0.5-1.4) mg/dL Estim Creat Clear Calc 85.7 Estimated GFR > 60 Random Glucose 139 H (60-115) mg/dL Calcium 9.4 (8.4-10.2) mg/dL Magnesium 1.6 Cancelled (1.6-2.6) mg/dL Total Bilirubin 2.4 H (0.0-1.0) mg/dL AST 152 H (5-31) U/L ALT 48 H (0-31) U/L Alkaline Phosphatase 196 H (39-117) U/L Total Creatine Kinase 19 L (26-140) U/L Troponin I High Sens < 2.7 (<3.5-17.0) ng/L Total Protein 7.3 (6.5-8.0) g/dL Albumin 4.0 (3.5-5.0) g/dL Lipase 20 (8-78) U/L Vitamin B12 835 (200-900) pg/mL Folate 2.3 L (> or = 4.0) ng/mL TSH 1.30 (0.32-4.0) uIU/mL Urine Opiates Screen Not Detected (Not Detect) Urine Fentanyl Screen Not Detected (Not Detect) Ur Barbiturates Screen Not Detected (Not Detect) Ur Phencyclidine Scrn Not Detected (Not Detect) Ur Amphetamines Screen Not Detected (Not Detect) U Benzodiazepines Scrn Not Detected (Not Detect) Urine Cocaine Screen Not Detected (Not Detect) U Marijuana (THC) Screen Not Detected (Not Detect) COVID-19 (SHMUEL) Negative (Negative) COVID-19 Clin Com See Note Independent Interpretation I performed an independent interpretation of an: Plain X-Ray Interpretation: My interpretation patient's one-view chest x-ray is as follows: No acute disease Radiology Impression Discussion of test interpretation with radiology: I have reviewed the radiologist's reading. Radiologist Impression: XR chest 2V IMPRESSION: No active cardiopulmonary disease. Dictated By: Saul Vazquez Critical Care Time Critical Care Time Total Critical Care Time: 45 Attestation: Critical Care: The patient was critically ill with a high probability of imminent or life threatening deterioration. I spent greater than 30 minutes of discontinuous time evaluating the patient,delivering critical care at the bedside, discussing and evaluating pertinent data with consultants. Critical care time does not include time spent performing separately billable procedures or teaching. Total time spent performing critical care was 45 minutes. Discharge Plan Discharge Clinical Impression: Paresthesia, Folic acid deficiency, Alcohol use disorder Malnutrition Qualifiers: Malnutrition type: unspecified type Qualified Code(s): E46 - Unspecified protein-calorie malnutrition Alcohol withdrawal Qualifiers: Complication of substance-induced condition: uncomplicated Qualified Code(s): F 10.930 - Alcohol use, unspecified with withdrawal, uncomplicated Patient Disposition: Admitted As Inpatient Interventions: Admission Worksheet (ED) Last Done: 07/01/23 00:48 Discharge Date/Time: 07/01/23 00:49
[2023-06-30] MEDS: 0.9 % Sodium Chloride 1,000 ML 999 ML IV (16:44)
[2023-06-30 16:57] LABS: MANUAL DIFF FLAG NO
[2023-06-30 17:00] LABS: Basophils Absolute Auto 0.1 X10*3/uL (0.0-0.2); Basophils Percent Auto 0.9 % (0-2); Eosinophils Percent Auto 0.5 % (0-4); Hematocrit 37.8 % (37.0-47.0); Hemoglobin 13.6 g/dl (12.0-16.0); Imm Gran Abs Auto 0.02 X10*3/uL (0.00-0.03); Imm Gran Pct Auto 0.3 % (0.0-0.4); Lymphocytes Absolute Auto 1.4 X10*3/uL (1.2-4.9); Lymphocytes Percent Auto 18.1 % (20-40); Mean Corpuscular Hemoglobin 38.6 pg (27.0-33.0); Mean Corpuscular Volume 107.4 fL (80.0-98.0); Monocytes Absolute Auto 0.5 X10*3/uL (0.1-1.2); Monocytes Percent Auto 7.1 % (2-11); NRBC Pct Auto 0.5 /100WBC (0.0-0.2); Neutrophils Absolute Auto 5.5 x10*3/uL (2.0-8.3); Neutrophils Percent Auto 73.1 % (45-73); Platelet Count 224 X10*3/uL (160-400); Red Blood Count 3.52 X10*6/uL (4.20-5.50); Red Cell Distribution Width 15.1 % (11.0-16.0); White Blood Count 7.6 X10*3/uL (4.8-10.8)
[2023-06-30 17:12] LABS: COVID-19 Test Negative (Negative); IDNOW Serial# BCCEAD1C
[2023-06-30 17:17] LABS: Alanine Aminotransferase 48 U/L (0-31); Alkaline Phosphatase 196 U/L (39-117); Anion Gap 22 (12-20); Aspartate Amino Transferase 152 U/L (5-31); Bilirubin Total 2.4 mg/dL (0.0-1.0); Blood Urea Nitrogen 5 mg/dL (9-16); Calcium 9.4 mg/dL (8.4-10.2); Carbon Dioxide 17 mmol/L (22-29); Chloride 102 mmol/L (96-108); Creatinine Clr Calc Pharmacy 85.7; Estimated Glomerular Filt Rate > 60; Glucose Random 139 mg/dL (60-115); Lipase 20 U/L (8-78); Magnesium 1.6 mg/dL (1.6-2.6); Potassium 3.9 mmol/L (3.3-5.1); Sodium 137 mmol/L (135-145); Total Protein 7.3 g/dL (6.5-8.0)
[2023-06-30 17:28] LABS: Troponin-I High Sensitivity < 2.7 ng/L (<3.5-17.0)
[2023-06-30 17:48] LABS: INTERNATIONAL NORM RATIO 1.2 (0.9-1.1); Prothrombin Time 14.1 SEC (11.1-13.3)
[2023-06-30 17:51] LABS: Folate 2.3 ng/mL (> or = 4.0); Partial Thromboplastin Time 36.5 SEC (26.0-36.4); Vitamin B12 835 pg/mL (200-900)
--- NOTE | 2023-06-30 18:09 | PC.NURSE ---
from home via ambulance, reports both facial and bilateral leg numbness. numbness x5 days, loss of appetite, weakness, nausea every morning, drinks a bottle of wine daily. has been in bed for 2 years gets up only to use the bathroom. denies diarrhea, fever. 22g iv inserted L hand. iv fluids hung, labs drawn.
[2023-06-30 18:16] VITALS: BP 110/77; PULSE 92; RESP 20; O2SAT 99
[2023-06-30 18:39] LABS: Amphetamine Screen Urine Not Detected (Not Detect); Barbiturates, Urine Not Detected (Not Detect); Benzodiazepines Screen Urine Not Detected (Not Detect); Cannabinoid Screen Urine Not Detected (Not Detect); Cocaine Screen Urine Not Detected (Not Detect); Fentanyl, urine Not Detected (Not Detect); Opiate Screen Urine Not Detected (Not Detect); Phencyclidine Screen Urine Not Detected (Not Detect)
[2023-06-30 19:28] VITALS: O2SAT 99
--- NOTE | 2023-06-30 19:34 | PC.NURSE ---
this rn assumed care of pt. pt reports numbness of the legs and face for 5 days. pt reports nausea and loss of appetite for 5 days as well. pt reports having one drink of wine daily and reports she may be going through withdrawl. pt denies chest pain and shortness of breath at this time. pt able to move all 4 extremities on command. pt normal sinus on tele between 88-90. at bedside discussing pt care.
--- NOTE | 2023-06-30 19:54 | PM.IMHP ---
History of Present Illness Date of Service: 06/30/23 Attending physician on admission: Deepti Ceja Chief Complaint: Numbness of face, chest, legs Pt is a 62-year-old female with a PMH significant for?HTN, GERD, HFpEF, alcohol use disorder with history withdrawal, anxiety, and depression who presents to the ED with?numbness of face, chest, and legs x5 days. Patient states symptoms began when she noticed that her lips, tongue, and face on both sides felt numb and tingly. She also felt numbness and tingling on her chest and both legs. Patient with a long history of heavy alcohol intake. States she used to drink straight vodka up until 2 years ago when she switched to wine. Reports she normally drinks 1 bottle of wine mixed with cranberry juice. Admit she starts drinking in the morning and continues throughout the day, and rarely eats any food or drinks any other liquid. Patient has prescription for thiamine, folate, and multivitamins but admits she has not been compliant with her medications. She reports not having a very active lifestyle, and spending most of her time in bed watching TV. Reports having chronic shortness of breath with any kind of exertion, chronic intermittent chest pain/pressure that has been ongoing for many years and which she has had cardiac workup for in the past. Also states she has nausea and vomiting nearly every morning before she starts drinking. Endorses chronic epigastric abdominal pain and generalized weakness. Denies orthopnea. In the ED patient was afebrile with pulse as high as 100, and soft BP as low as 108/58. Labs were significant for MCV of 107.4, magnesium low normal at 1.6, bilirubin 2.4, AST 152, ALT 48, alk-phos 196, folate 2.3. H&H 13.6/37.8. Vitamin B12 835. Coag slightly elevated. CXR showed no active cardiopulmonary disease. Pt was treated with IVF and started on phenobarb protocol. Pt will be admitted to the hospital for treatment further evaluation of numbness and tingling Likely secondary to vitamin deficiencies in the setting of alcohol use disorder. Review of Systems Review of Systems: Numbness and tingling to face, mouth, chest, and legs x5 days Generalized weakness Chronic nausea, vomiting and morning Chronic SOB with exertion Anorexia Chronic intermittent chest pain/pressure [facility] Medical History Multinodular thyroid Anxiety CHF (congestive heart failure) ETOH abuse Family History Mother Cancer Father No problems noted. Surgical History History of esophagogastroduodenoscopy (EGD) Hx of colonoscopy Hx of hysterectomy Social History Household Members: Other Household Members Other:: roommate Housing: House Do you presently have visiting nurse or other home services: No Alcohol intake: current Alcohol intake frequency: 0-2 drinks per day Alcohol type: wine Patient Tobacco Use Status: Never used Tobacco Smoked in Last 30 Days: No Use of substances other than those prescribed or required for medical reasons: No Substance Use Type: Crack/Cocaine Advance Directives: No Advance Directives Date on File: 06/26/17 Nutrition Risks: No Nutritional Risk service: No Current occupational status: disabled Meds Allergies Allergy/AdvReac Type Severity Reaction Status Date / Time No Known Allergies Allergy Verified 06/30/23 16:21 [No Known Allergies*] Active Medications: Current Medications Acetaminophen (Acetaminophen 325 Mg Tablet) 650 mg PO Q6H PRN PRN Reason: Pain, Mild (Pain Scale 1-3) Enoxaparin Sodium (Enoxaparin Sodium 40 Mg/0.4 Ml Syringe) 40 mg SUBCUT Q24H ADELIA Folic Acid (Folic Acid 1 Mg Tablet) 1 mg PO DAILY ADELIA Thiamine HCl 100 mg/ Sodium (Chloride) 101 mls @ 202 mls/hr IV ONCE ONE Stop: 06/30/23 20:00 Melatonin (Melatonin 3 Mg Tablet) 6 mg PO BEDTIME PRN PRN Reason: Insomnia Ondansetron HCl (Ondansetron Hcl 4 Mg/2 Ml Vial) 4 mg IVPUSH Q8H PRN PRN Reason: Nausea and Vomiting Pharmacy Consult (Consult Rx Etoh Phenob Im/Po) 1 each MISCELLANE ONCE PRN; Protocol PRN Reason: Consult order Phenobarbital (Phenobarbital 15 Mg Tablet) 45 mg PO BID ADELIA; Protocol Stop: 07/02/23 21:01 Phenobarbital (Phenobarbital 15 Mg Tablet) 15 mg PO BID ADELIA; Protocol Stop: 07/04/23 21:01 Phenobarbital (Phenobarbital 15 Mg Tablet) 15 mg PO DAILY ADELIA; Protocol Stop: 07/06/23 09:01 Phenobarbital Sodium (Phenobarbital Sodium 130 Mg/Ml Im Once) 328.9 mg IM ONCE ONE; Protocol Stop: 06/30/23 20:01 Phenobarbital Sodium (Phenobarbital Sodium 130 Mg/Ml Vial Im Q3hx2) 247 mg IM Q3H ADELIA; Protocol Stop: 07/01/23 02:01 Sodium Chloride (0.9 % Sodium Chloride Flush 3 Ml Syringe) 3 ml IVFLUSH QSHIFT ADELIA Thiamine HCl (Thiamine Hcl 100 Mg Tablet) 100 mg PO DAILY [facility] Home Medications Medication Instructions Recorded Confirmed Last Taken Type trazodone 50 mg tablet 50 mg PO BEDTIME PRN anxiety or 07/11/22 06/30/23 Unknown History insomnia venlafaxine 150 mg 150 mg PO DAILY 07/11/22 06/30/23 Unknown History capsule,extended release 24 hr Physical Exam Vital Signs and Narrative: Vital Signs: Last Vital Signs Temp 98.8 F 06/30/23 16:09 Pulse 92 06/30/23 18:16 Resp 20 06/30/23 18:16 BP 110/77 06/30/23 18:16 Pulse Ox 99 06/30/23 19:28 O2 Del Method Room Air 06/30/23 19:28 BMI result Body Mass Index 24.7 Constitutional: Alert, in no acute distress. Mental Status: Oriented to person, place and time. Eyes: Pupils are equal, round, and reactive to light. Ear, Nose, and Throat: Oropharynx clear, mucous membranes moist. Ears and nose without deformities. Trachea midline. Respiratory: Clear to auscultation bilaterally. No wheezing, rales, or rhonchi. Cardiovascular: S1, S2 regular. No murmurs, rubs, or gallops. Gastrointestinal: Abdomen soft, non-tender, non-distended. Normal bowel sounds. Neurologic: Cranial nerves II-XII are grossly intact bilaterally. No focal neurological deficits. Moves all extremities spontaneously. Sensation diminished equally to the face, anterior chest, and legs bilaterally. Sensation to light touch intact to upper extremities and abdomen. Patient could puff out cheeks but was incapable of fully smiling. Minor upper extremity tremors noted. Skin: No rashes or lesions noted. Musculoskeletal: No cyanosis or clubbing. Extremities: No edema. Psychiatric: Normal mood and affect. Results Labs 06/30/23 16:44 06/30/23 16:44 Labs: Laboratory Results - last 24 hr 06/30/23 06/30/23 06/30/23 16:44 16:46 18:18 MCV 107.4 H MCH 38.6 H MCHC 36.0 H RDW 15.1 Plt Count 224 D MPV 10.0 Immature Gran % (Auto) 0.3 Neut % (Auto) 73.1 H Lymph % (Auto) 18.1 L Worth % (Auto) 7.1 Eos % (Auto) 0.5 Baso % (Auto) 0.9 Lymph # (Auto) 1.4 [place] # (Auto) 0.5 Eos # (Auto) 0.0 Baso # (Auto) 0.1 Abs Immat Gran (auto) 0.02 Absolute Neuts (auto) 5.5 Absolute Nucleated RBC 0.040 H Nucleated RBC % (auto) 0.5 H PT 14.1 H INR 1.2 H APTT 36.5 H Anion Gap 22 H Estim Creat Clear Calc 85.7 Estimated GFR > 60 Random Glucose 139 H Calcium 9.4 Magnesium 1.6 Cancelled Total Bilirubin 2.4 H AST 152 H ALT 48 H Alkaline Phosphatase 196 H Total Creatine Kinase 19 L Total Protein 7.3 Albumin 4.0 Lipase 20 Vitamin B12 835 Folate 2.3 L TSH 1.30 Urine Opiates Screen Not Detected Urine Fentanyl Screen Not Detected Ur Barbiturates Screen Not Detected Ur Phencyclidine Scrn Not Detected Ur Amphetamines Screen Not Detected U Benzodiazepines Scrn Not Detected Urine Cocaine Screen Not Detected U Marijuana (THC) Screen Not Detected COVID-19 (SHMUEL) Negative COVID-19 Clin Com See Note Imaging Radiologist's Impressions: Impressions Chest X-Ray 06/30/23 17:36 IMPRESSION: No active cardiopulmonary disease. Assessment and Plan (1) Alcohol withdrawal: Qualifiers: Complication of substance-induced condition: uncomplicated Qualified Code(s): F10.930 - Alcohol use, unspecified with withdrawal, uncomplicated Status: Acute (2) Folic acid deficiency: Status: Acute Plan Pt is a 62-year-old female with a PMH significant for?HTN, GERD, HFpEF, alcohol use disorder with history withdrawal, anxiety, and depression who presents to the ED with?numbness of face, chest, and legs x5 days. Patient states symptoms began when she noticed that her lips, tongue, and face on both sides felt numb and tingly. Pt will be admitted to the hospital for treatment further evaluation of numbness and tingling Likely secondary to vitamin deficiencies in the setting of alcohol use disorder. Acute alcohol withdrawal Patient along his standing history of heavy alcohol use Will start on phenobarb protocol Daily multivitamin, folic acid, thiamine IV Protonix Follow lytes, Mag, BMP Patient received IVF in the ED CIWA scale Addiction Medicine consult Monitor on telemetry PT evaluation Numbness and tingling of mouth, face, chest, legs Likely secondary to vitamin deficiencies in the setting of chronic alcohol use disorder Patient will receive IV thiamine, folic acid, multivitamin Chronic intermittent chest pain/pressure Pt states symptoms have been occurring on and off for many years Patient has had cardiac workup in the past with cardiac catheterization showing nonobstructive CAD Question of alcoholic cardiomyopathy versus stress-induced cardiomyopathy Troponin negative Continue metoprolol Monitor on telemetry HFpEF Currently not in acute exacerbation Continue metoprolol Monitor on telemetry GERD Patient received IV Protonix in ED Continue PPI Insomnia Continue trazodone Anxiety/depression Continue venlafaxine Full Code Attending:?Dr. Ceja DVT Prophylaxis: Lovenox Pt will require a hospitalization of at least two nights for treatment of?acute alcohol withdrawal with vitamin deficiencies. Patient will be treated with phenobarb protocol, vitamin supplementation, and close monitoring. Time Spent With Patient Time: Total time managing care of this patient today ____ minutes. Quality Stroke Does the patient have a stroke diagnosis?: No VTE Prior VTE?: No VTE Risk Level:: Medical - moderate - high VTE Device Contraindication: Treatment Not Indicated VTE Drug Contraindication: N/A - Med Ordered
[2023-06-30] MEDS: PHENobarbitaL sodium 130 MG/ML IM ONCE 328.9 MG IM (20:03)
[2023-06-30] MEDS: Enoxaparin Sodium 40 MG/0.4 ML SYRINGE SUBCUT (20:03)
[2023-06-30] MEDS: Folic Acid 1 MG TABLET PO (20:04)
[2023-06-30] MEDS: Thiamine HCL 100 MG in 0.9 % Sodium Chloride 100 ML 202 MG IV (20:04)
[2023-06-30 20:10] VITALS: BP 108/58; PULSE 97; RESP 18; O2SAT 98
--- NOTE | 2023-06-30 20:12 | PC.NURSE ---
pt medicated epr nov. Hospitalist at bedside discussing pt care.
--- NOTE | 2023-06-30 20:25 | PHA.MEDREC ---
Pharmacy Consult ? Medication Reconciliation Pharmacy has completed the medication reconciliation. Patient confirmed medicaitons. Renuka Perez, NancyD
--- NOTE | 2023-06-30 21:01 | PC.NURSE ---
this rn assisted pt with ambulation to the bathroom, pt ambulated with steady gait.
[2023-06-30] MEDS: 0.9 % Sodium Chloride Flush 3 ML SYRINGE IVFLUSH (23:11)
[2023-06-30] MEDS: PHENobarbitaL sodium 130 MG/ML VIAL IM Q3Hx2 247 MG IM (23:11)
[2023-06-30 23:12] VITALS: BP 138/80; PULSE 120; RESP 18; O2SAT 98
[2023-07-01] VITALS: BP 161/80; PULSE 99; RESP 18; TEMP 36.1; O2SAT 99
--- NOTE | 2023-07-01 00:20 | PC.NURSE ---
report given to [facility] nurse.
[2023-07-01 02:38] VITALS: BP 136/68
[2023-07-01] MEDS: PHENobarbitaL sodium 130 MG/ML VIAL IM Q3Hx2 247 MG IM (02:49)
[2023-07-01 06:30] LABS: MANUAL DIFF FLAG NO
[2023-07-01 06:36] LABS: Basophils Percent Auto 0.6 % (0-2); Eosinophils Percent Auto 0.5 % (0-4); Hematocrit 35.6 % (37.0-47.0); Hemoglobin 12.4 g/dl (12.0-16.0); Imm Gran Abs Auto 0.03 X10*3/uL (0.00-0.03); Imm Gran Pct Auto 0.5 % (0.0-0.4); Lymphocytes Absolute Auto 1.4 X10*3/uL (1.2-4.9); Lymphocytes Percent Auto 22.9 % (20-40); Mean Corpuscular HGB Conc 34.8 g/dl (31.0-35.0); Mean Corpuscular Hemoglobin 38.3 pg (27.0-33.0); Mean Corpuscular Volume 109.9 fL (80.0-98.0); Mean Platelet Volume 9.8 fL (9.4-12.3); Monocytes Absolute Auto 0.7 X10*3/uL (0.1-1.2); Monocytes Percent Auto 11.5 % (2-11); Neutrophils Absolute Auto 3.9 x10*3/uL (2.0-8.3); Platelet Count 134 X10*3/uL (160-400); Red Blood Count 3.24 X10*6/uL (4.20-5.50); White Blood Count 6.2 X10*3/uL (4.8-10.8)
[2023-07-01 06:53] LABS: Anion Gap 17 (12-20); Blood Urea Nitrogen 5 mg/dL (9-16); Calcium 8.7 mg/dL (8.4-10.2); Carbon Dioxide 23 mmol/L (22-29); Chloride 103 mmol/L (96-108); Creatinine Clr Calc Pharmacy 93.8; Estimated Glomerular Filt Rate > 60; Glucose Random 89 mg/dL (60-115); Sodium 139 mmol/L (135-145)
[2023-07-01 07:48] LABS: Magnesium 1.5 mg/dL (1.6-2.6)
[2023-07-01 07:57] VITALS: BP 118/63; PULSE 86; RESP 18; TEMP 36.1; O2SAT 99
[2023-07-01 08:00] VITALS: BMI 24.7
[2023-07-01] MEDS: Metoprolol Succinate ER 25 MG TAB.ER.24H PO (08:23)
[2023-07-01] MEDS: Thiamine HCL 100 MG TABLET PO (08:23)
[2023-07-01] MEDS: Folic Acid 1 MG TABLET PO (08:24)
[2023-07-01] MEDS: 0.9 % Sodium Chloride Flush 3 ML SYRINGE IVFLUSH ×3 (08:24→19:40)
[2023-07-01] MEDS: PHENobarbitaL 15 MG TABLET 45 MG PO ×2 (08:24→19:38)
[2023-07-01] MEDS: Venlafaxine HCl ER 150 MG CAP.ER.24H PO (08:24)
--- NOTE | 2023-07-01 11:25 | HO.PM.IMPN ---
Subjective Subjective Date of Service: 07/01/23 Review of Systems Folllow up alcohol intoxication doing better today no tremors, good appetite Physical Exam Vital Signs: Vital Signs: Last Vital Signs Temp 96.9 F 07/01/23 07:57 Pulse 86 07/01/23 07:57 Resp 18 07/01/23 07:57 BP 118/63 07/01/23 07:57 Pulse Ox 99 07/01/23 07:57 O2 Del Method Room Air 07/01/23 07:57 BMI result Body Mass Index 24.7 Appearing in no acute distress lung sounds are clear to auscultation heart regular rate rhythm, clear S1, S2 positive bowel sounds, abdomen is soft, nontender neuro patient is alert x3, no focal deficits Objective Data Active Medications Acetaminophen (Acetaminophen 325 Mg Tablet) 650 mg PO Q6H PRN PRN Reason: Pain, Mild (Pain Scale 1-3) Enoxaparin Sodium (Enoxaparin Sodium 40 Mg/0.4 Ml Syringe) 40 mg SUBCUT Q24H [facility] Last Admin: 06/30/23 20:03 Dose: 40 mg Documented By: WARREN Folic Acid (Folic Acid 1 Mg Tablet) 1 mg PO DAILY [facility] Last Admin: 07/01/23 08:24 Dose: 1 mg Documented By: GAURAV Melatonin (Melatonin 3 Mg Tablet) 6 mg PO BEDTIME PRN PRN Reason: Insomnia Metoprolol Succinate (Metoprolol Succinate Er 25 Mg Tab.Er.24h) 25 mg PO DAILY [facility]; Protocol Last Admin: 07/01/23 08:23 Dose: 25 mg Documented By: GAURAV Ondansetron HCl (Ondansetron Hcl 4 Mg/2 Ml Vial) 4 mg IVPUSH Q8H PRN PRN Reason: Nausea and Vomiting Pharmacy Consult (Consult Rx Etoh Phenob Im/Po) 1 each MISCELLANE ONCE PRN; Protocol PRN Reason: Consult order Phenobarbital (Phenobarbital 15 Mg Tablet) 45 mg PO BID [facility]; Protocol Stop: 07/02/23 21:01 Last Admin: 07/01/23 08:24 Dose: 45 mg Documented By: GAURAV Phenobarbital (Phenobarbital 15 Mg Tablet) 15 mg PO BID [facility]; Protocol Stop: 07/04/23 21:01 Phenobarbital (Phenobarbital 15 Mg Tablet) 15 mg PO DAILY [facility]; Protocol Stop: 07/06/23 09:01 Sodium Chloride (0.9 % Sodium Chloride Flush 3 Ml Syringe) 3 ml IVFLUSH QSHIFT [facility] Last Admin: 07/01/23 08:24 Dose: 3 ml Documented By: GAURAV Thiamine HCl (Thiamine Hcl 100 Mg Tablet) 100 mg PO DAILY [facility] Last Admin: 07/01/23 08:23 Dose: 100 mg Documented By: GAURAV Trazodone HCl (Trazodone Hcl 50 Mg Tablet) 50 mg PO BEDTIME PRN PRN Reason: anxiety or insomnia Venlafaxine HCl (Venlafaxine Hcl Er 150 Mg Cap.Er.24h) 150 mg PO DAILY [facility] Last Admin: 07/01/23 08:24 Dose: 150 mg Documented By: GAURAV Labs 07/01/23 06:24 07/01/23 06:24 Labs: Laboratory Results - last 24 hr 06/30/23 06/30/23 06/30/23 16:44 16:46 18:18 MCV 107.4 H MCH 38.6 H MCHC 36.0 H RDW 15.1 Plt Count 224 D MPV 10.0 Immature Gran % (Auto) 0.3 Neut % (Auto) 73.1 H Lymph % (Auto) 18.1 L [place] % (Auto) 7.1 Eos % (Auto) 0.5 Baso % (Auto) 0.9 Lymph # (Auto) 1.4 [place] # (Auto) 0.5 Eos # (Auto) 0.0 Baso # (Auto) 0.1 Abs Immat Gran (auto) 0.02 Absolute Neuts (auto) 5.5 Absolute Nucleated RBC 0.040 H Nucleated RBC % (auto) 0.5 H PT 14.1 H INR 1.2 H APTT 36.5 H Anion Gap 22 H Estim Creat Clear Calc 85.7 Estimated GFR > 60 Random Glucose 139 H Calcium 9.4 Magnesium 1.6 Cancelled Total Bilirubin 2.4 H AST 152 H ALT 48 H Alkaline Phosphatase 196 H Total Creatine Kinase 19 L Total Protein 7.3 Albumin 4.0 Lipase 20 Vitamin B12 835 Folate 2.3 L TSH 1.30 Urine Opiates Screen Not Detected Urine Fentanyl Screen Not Detected Ur Barbiturates Screen Not Detected Ur Phencyclidine Scrn Not Detected Ur Amphetamines Screen Not Detected U Benzodiazepines Scrn Not Detected Urine Cocaine Screen Not Detected U Marijuana (THC) Screen Not Detected COVID-19 (SHMUEL) Negative COVID-19 Clin Com See Note 07/01/23 06:24 MCV 109.9 H MCH 38.3 H MCHC 34.8 RDW 15.0 Plt Count 134 L D MPV 9.8 Immature Gran % (Auto) 0.5 H Neut % (Auto) 64.0 Lymph % (Auto) 22.9 [place] % (Auto) 11.5 H Eos % (Auto) 0.5 Baso % (Auto) 0.6 Lymph # (Auto) 1.4 [place] # (Auto) 0.7 Eos # (Auto) 0.0 Baso # (Auto) 0.0 Abs Immat Gran (auto) 0.03 Absolute Neuts (auto) 3.9 Absolute Nucleated RBC 0.000 Nucleated RBC % (auto) 0.0 PT INR APTT Anion Gap 17 Estim Creat Clear Calc 93.8 Estimated GFR > 60 Random Glucose 89 Calcium 8.7 D Magnesium 1.5 L Total Bilirubin AST ALT Alkaline Phosphatase Total Creatine Kinase Total Protein Albumin Lipase Vitamin B12 Folate TSH Urine Opiates Screen Urine Fentanyl Screen Ur Barbiturates Screen Ur Phencyclidine Scrn Ur Amphetamines Screen U Benzodiazepines Scrn Urine Cocaine Screen U Marijuana (THC) Screen COVID-19 ([facility]) COVID-19 Clin Com Assessment and Plan (1) Alcohol use disorder: Status: Acute Plan Pt is a 62-year-old female with a PMH significant for?HTN, GERD, HFpEF, alcohol use disorder with history withdrawal, anxiety, and depression who presents to the ED with?numbness of face, chest, and legs x5 days. Patient states symptoms began when she noticed that her lips, tongue, and face on both sides felt numb and tingly. Pt will be admitted to the hospital for treatment further evaluation of numbness and tingling Likely secondary to vitamin deficiencies in the setting of alcohol use disorder. Acute alcohol withdrawal Patient along his standing history of heavy alcohol use continue phenobarb protocol Daily multivitamin, folic acid, thiamine IV Protonix Addiction Medicine consult Monitor on telemetry PT evaluation Numbness and tingling of mouth, face, chest, legs Likely secondary to vitamin deficiencies in the setting of chronic alcohol use disorder IV thiamine, folic acid, multivitamin hypomagnesemia repleted Chronic intermittent chest pain/pressure Pt states symptoms have been occurring on and off for many years Patient has had cardiac workup in the past with cardiac catheterization showing nonobstructive CAD Question of alcoholic cardiomyopathy versus stress-induced cardiomyopathy Troponin negative Continue metoprolol Monitor on telemetry HFpEF Currently not in acute exacerbation Continue metoprolol Monitor on telemetry GERD Patient received IV Protonix in ED Continue PPI Insomnia Continue trazodone Anxiety/depression Continue venlafaxine Full Code Attending:?Dr. Ho DVT Prophylaxis: Lovenox continued hospital stay for treatment of?acute alcohol withdrawal with vitamin deficiencies. Patient will be treated with phenobarb protocol, vitamin supplementation, and close monitoring. Time Spent With Patient Time: Total time managing care of this patient today ____ minutes. Quality Stroke Does the patient have a stroke diagnosis?: No VTE Prior VTE?: No VTE Risk Level:: Medical - moderate - high VTE Device Contraindication: Treatment Not Indicated VTE Drug Contraindication: N/A - Med Ordered
--- NOTE | 2023-07-01 11:29 | MHC.CM.PN ---
pt lives with friend has own ride homem goes to counseling [facility] weekly dc plan resume same
[2023-07-01] MEDS: Magnesium Sulfate/H2O 2 GM/50 ML PIGGYBACK IV (14:03)
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
[2023-07-01 15:08] VITALS: BP 115/54; PULSE 92; TEMP 35.9; O2SAT 98
[2023-07-01 17:05] VITALS: BP 115/54; PULSE 92; O2SAT 98
[2023-07-01] MEDS: Magnesium Oxide 400 MG TABLET PO (19:38)
[2023-07-01] MEDS: Enoxaparin Sodium 40 MG/0.4 ML SYRINGE SUBCUT (19:39)
[2023-07-01] MEDS: Acetaminophen 325 MG TABLET 650 MG PO (19:48)
[2023-07-02] VITALS: BP 109/68; PULSE 84; RESP 18; TEMP 36.1; O2SAT 98
[2023-07-02 05:47] LABS: Anion Gap 16 (12-20); Blood Urea Nitrogen 5 mg/dL (9-16); Calcium 9.2 mg/dL (8.4-10.2); Carbon Dioxide 26 mmol/L (22-29); Chloride 100 mmol/L (96-108); Creatinine Clr Calc Pharmacy 88.7; Estimated Glomerular Filt Rate > 60; Glucose Random 112 mg/dL (60-115); Potassium 3.9 mmol/L (3.3-5.1); Sodium 138 mmol/L (135-145)
[2023-07-02 05:49] LABS: Magnesium 1.6 mg/dL (1.6-2.6)
[2023-07-02 07:22] VITALS: BP 116/56; PULSE 85; RESP 16; TEMP 36; O2SAT 100
[2023-07-02] MEDS: 0.9 % Sodium Chloride Flush 3 ML SYRINGE IVFLUSH ×3 (09:05→20:20)
[2023-07-02] MEDS: Thiamine HCL 100 MG TABLET PO (09:07)
[2023-07-02] MEDS: Metoprolol Succinate ER 25 MG TAB.ER.24H PO (09:07)
[2023-07-02] MEDS: Folic Acid 1 MG TABLET PO (09:07)
[2023-07-02] MEDS: Magnesium Oxide 400 MG TABLET PO ×2 (09:07→17:23)
[2023-07-02] MEDS: Venlafaxine HCl ER 150 MG CAP.ER.24H PO (09:07)
[2023-07-02] MEDS: PHENobarbitaL 15 MG TABLET 45 MG PO ×2 (09:07→20:15)
--- NOTE | 2023-07-02 10:10 | P.PNIM_ITS ---
Subjective Subjective Date of Service: 07/02/23 Review of Systems Folllow up alcohol intoxication doing better today no tremors, good appetite Physical Exam 2 Vital Signs: Vital Signs: Last Vital Signs Temp 96.8 F 07/02/23 07:22 Pulse 85 07/02/23 07:22 Resp 16 07/02/23 07:22 BP 116/56 L 07/02/23 07:22 Pulse Ox 100 07/02/23 07:22 O2 Del Method Room Air 07/02/23 07:22 BMI result Body Mass Index 24.7 Appearing in no acute distress lung sounds are clear to auscultation heart regular rate rhythm, clear S1, S2 positive bowel sounds, abdomen is soft, nontender neuro patient is alert x3, no focal deficits Objective Data Active Medications Acetaminophen (Acetaminophen 325 Mg Tablet) 650 mg PO Q6H PRN PRN Reason: Pain, Mild (Pain Scale 1-3) Last Admin: 07/01/23 19:48 Dose: 650 mg Documented By: KARY Enoxaparin Sodium (Enoxaparin Sodium 40 Mg/0.4 Ml Syringe) 40 mg SUBCUT Q24H [facility] Last Admin: 07/01/23 19:39 Dose: 40 mg Documented By: KARY Folic Acid (Folic Acid 1 Mg Tablet) 1 mg PO DAILY [facility] Last Admin: 07/02/23 09:07 Dose: 1 mg Documented By: ILSA Magnesium Oxide (Magnesium Oxide 400 Mg Tablet) 400 mg PO BIDPC [facility] Last Admin: 07/02/23 09:07 Dose: 400 mg Documented By: ILSA Melatonin (Melatonin 3 Mg Tablet) 6 mg PO BEDTIME PRN PRN Reason: Insomnia Metoprolol Succinate (Metoprolol Succinate Er 25 Mg Tab.Er.24h) 25 mg PO DAILY [facility]; Protocol Last Admin: 07/02/23 09:07 Dose: 25 mg Documented By: ILSA Ondansetron HCl (Ondansetron Hcl 4 Mg/2 Ml Vial) 4 mg IVPUSH Q8H PRN PRN Reason: Nausea and Vomiting Pharmacy Consult (Consult Rx Etoh Phenob Im/Po) 1 each MISCELLANE ONCE PRN; Protocol PRN Reason: Consult order Phenobarbital (Phenobarbital 15 Mg Tablet) 45 mg PO BID [facility]; Protocol Stop: 07/02/23 21:01 Last Admin: 07/02/23 09:07 Dose: 45 mg Documented By: ILSA Phenobarbital (Phenobarbital 15 Mg Tablet) 15 mg PO BID [facility]; Protocol Stop: 07/04/23 21:01 Phenobarbital (Phenobarbital 15 Mg Tablet) 15 mg PO DAILY [facility]; Protocol Stop: 07/06/23 09:01 Sodium Chloride (0.9 % Sodium Chloride Flush 3 Ml Syringe) 3 ml IVFLUSH QSHIFT [facility] Last Admin: 07/02/23 09:05 Dose: 3 ml Documented By: ILSA Thiamine HCl (Thiamine Hcl 100 Mg Tablet) 100 mg PO DAILY [facility] Last Admin: 07/02/23 09:07 Dose: 100 mg Documented By: ILSA Trazodone HCl (Trazodone Hcl 50 Mg Tablet) 50 mg PO BEDTIME PRN PRN Reason: anxiety or insomnia Venlafaxine HCl (Venlafaxine Hcl Er 150 Mg Cap.Er.24h) 150 mg PO DAILY [facility] Last Admin: 07/02/23 09:07 Dose: 150 mg Documented By: ILSA Labs 07/01/23 06:24 07/02/23 05:19 Labs: Laboratory Results - last 24 hr 07/02/23 05:19 Hold Purple Top SEE NOTE Anion Gap 16 Estim Creat Clear Calc 88.7 Estimated GFR > 60 Random Glucose 112 Calcium 9.2 Magnesium 1.6 Assessment and Plan (1) Alcohol use disorder: Status: Acute Plan Pt is a 62-year-old female with a PMH significant for?HTN, GERD, HFpEF, alcohol use disorder with history withdrawal, anxiety, and depression who presents to the ED with?numbness of face, chest, and legs x5 days. Patient states symptoms began when she noticed that her lips, tongue, and face on both sides felt numb and tingly. Pt will be admitted to the hospital for treatment further evaluation of numbness and tingling Likely secondary to vitamin deficiencies in the setting of alcohol use disorder. Acute alcohol withdrawal Patient along his standing history of heavy alcohol use continue phenobarb protocol Daily multivitamin, folic acid, thiamine IV Protonix Addiction Medicine consult Monitor on telemetry PT evaluation>home with family support Numbness and tingling of mouth, face, chest, legs. Resolving Likely secondary to vitamin deficiencies in the setting of chronic alcohol use disorder IV thiamine, folic acid, multivitamin hypomagnesemia repleted Chronic intermittent chest pain/pressure Pt states symptoms have been occurring on and off for many years Patient has had cardiac workup in the past with cardiac catheterization showing nonobstructive CAD Question of alcoholic cardiomyopathy versus stress-induced cardiomyopathy Troponin negative Continue metoprolol Monitor on telemetry HFpEF Currently not in acute exacerbation Continue metoprolol Monitor on telemetry GERD Patient received IV Protonix in ED Continue PPI Insomnia Continue trazodone Anxiety/depression Continue venlafaxine Full Code Attending:?Dr. Ho DVT Prophylaxis: Lovenox continued hospital stay for treatment of?acute alcohol withdrawal with vitamin deficiencies. Patient will be treated with phenobarb protocol, vitamin supplementation, and close monitoring. Time Spent With Patient Time: Total time managing care of this patient today ____ minutes. Quality Stroke Does the patient have a stroke diagnosis?: No VTE Prior VTE?: No VTE Risk Level:: Medical - moderate - high VTE Device Contraindication: Treatment Not Indicated VTE Drug Contraindication: N/A - Med Ordered
--- NOTE | 2023-07-02 13:26 | MHC.RECOVRN ---
Met with patient in room 387-1. She was resting in bed upon arrival. She is conversing appropriately. Admits to sweating overnight, but patient denies having any current s/s of alcohol withdrawal. She reports that her abd is sore and her knees feel a little swollen . She also reports having a short bout of being disoriented this morning - when I woke up this morning, I had no idea where I was. I completely forgot I was in the hospital for a minute there, but then I remembered. I swear I feel like I'm getting dementia sometimes. She reports feeling rested after taking the Phenobarbital this morning. She stated that she is avoiding turning her TV on as she usually starts drinking in the morning when she turns the TV on, therefore she is trying to avoid a trigger. She, instead, is spending time resting or talking with friends/roommates on the phone. She is interested in a possible referral to [facility] for KRUPA. Discussed some of the options available- reports she has taken something in the past but can't remember the name of it. She stopped taking it because she got bored with it . Provided her with resource info and encouraged her to review. Will have recovery steam power plant operator connect with her tomorrow. Discussed with Gretel Álvarez APRN.
[2023-07-02 15:25] VITALS: BP 105/56; PULSE 96; RESP 18; TEMP 36; O2SAT 99
[2023-07-02] MEDS: Acetaminophen 325 MG TABLET 650 MG PO (20:17)
[2023-07-02] MEDS: Enoxaparin Sodium 40 MG/0.4 ML SYRINGE SUBCUT (20:19)
[2023-07-03] MEDS: traZODone HCL 50 MG TABLET PO (01:18)
[2023-07-03 05:34] VITALS: PULSE 68; RESP 16; TEMP 36.2
[2023-07-03 05:39] VITALS: BP 106/52; PULSE 72; RESP 16; TEMP 36.2; O2SAT 95
[2023-07-03 06:18] LABS: Anion Gap 17 (12-20); Blood Urea Nitrogen 4 mg/dL (9-16); Calcium 8.7 mg/dL (8.4-10.2); Carbon Dioxide 22 mmol/L (22-29); Chloride 103 mmol/L (96-108); Creatinine Clr Calc Pharmacy 95.5; Estimated Glomerular Filt Rate > 60; Glucose Random 108 mg/dL (60-115); Magnesium 1.8 mg/dL (1.6-2.6); Sodium 138 mmol/L (135-145)
[2023-07-03 07:11] VITALS: BP 122/63; PULSE 76; RESP 16; TEMP 36.6; O2SAT 97
[2023-07-03] MEDS: PHENobarbitaL 15 MG TABLET PO ×2 (08:05→21:21)
[2023-07-03] MEDS: Magnesium Oxide 400 MG TABLET PO ×2 (08:05→18:21)
[2023-07-03] MEDS: Venlafaxine HCl ER 150 MG CAP.ER.24H PO (08:05)
[2023-07-03] MEDS: Folic Acid 1 MG TABLET PO (08:05)
[2023-07-03] MEDS: Metoprolol Succinate ER 25 MG TAB.ER.24H PO (08:05)
[2023-07-03] MEDS: Thiamine HCL 100 MG TABLET PO (08:06)
[2023-07-03] MEDS: 0.9 % Sodium Chloride Flush 3 ML SYRINGE IVFLUSH ×3 (08:06→21:23)
[2023-07-03] MEDS: Ketorolac Tromethamine 15 MG/ML VIAL IVPUSH ×2 (08:23→21:21)
--- NOTE | 2023-07-03 09:22 | HO.PM.IMPN ---
Subjective Subjective Date of Service: 07/03/23 Review of Systems Folllow up alcohol intoxication doing better today no tremors, good appetite still with body aches Physical Exam Vital Signs: Vital Signs: Last Vital Signs Temp 97.8 F 07/03/23 07:11 Pulse 76 07/03/23 07:11 Resp 16 07/03/23 07:11 BP 122/63 07/03/23 07:11 Pulse Ox 97 07/03/23 07:11 O2 Del Method Room Air 07/03/23 07:11 BMI result Body Mass Index 24.7 Appearing in no acute distress head is normocephalic atraumatic eyes pupils are PERRLA sclera is anicteric mouth throat mucous membranes are intact and moist neck is supple no lymphadenopathy, no JVD noted lung sounds are clear to auscultation heart regular rate rhythm, clear S1, S2 positive bowel sounds, abdomen is soft, nontender neuro patient is alert x3, no focal deficits MSK palpable muscle pain to shoulders and back Objective Data Active Medications Acetaminophen (Acetaminophen 325 Mg Tablet) 650 mg PO Q6H PRN PRN Reason: Pain, Mild (Pain Scale 1-3) Last Admin: 07/02/23 20:17 Dose: 650 mg Documented By: JAYLA Enoxaparin Sodium (Enoxaparin Sodium 40 Mg/0.4 Ml Syringe) 40 mg SUBCUT Q24H [facility] Last Admin: 07/02/23 20:19 Dose: 40 mg Documented By: JAYLA Folic Acid (Folic Acid 1 Mg Tablet) 1 mg PO DAILY [facility] Last Admin: 07/03/23 08:05 Dose: 1 mg Documented By: ETHEL Magnesium Oxide (Magnesium Oxide 400 Mg Tablet) 400 mg PO BIDPC [facility] Last Admin: 07/03/23 08:05 Dose: 400 mg Documented By: ETHEL Melatonin (Melatonin 3 Mg Tablet) 6 mg PO BEDTIME PRN PRN Reason: Insomnia Metoprolol Succinate (Metoprolol Succinate Er 25 Mg Tab.Er.24h) 25 mg PO DAILY [facility]; Protocol Last Admin: 07/03/23 08:05 Dose: 25 mg Documented By: ETHEL Ondansetron HCl (Ondansetron Hcl 4 Mg/2 Ml Vial) 4 mg IVPUSH Q8H PRN PRN Reason: Nausea and Vomiting Pharmacy Consult (Consult Rx Etoh Phenob Im/Po) 1 each MISCELLANE ONCE PRN; Protocol PRN Reason: Consult order Phenobarbital (Phenobarbital 15 Mg Tablet) 15 mg PO BID [facility]; Protocol Stop: 07/04/23 21:01 Last Admin: 07/03/23 08:05 Dose: 15 mg Documented By: ETHEL Phenobarbital (Phenobarbital 15 Mg Tablet) 15 mg PO DAILY [facility]; Protocol Stop: 07/06/23 09:01 Sodium Chloride (0.9 % Sodium Chloride Flush 3 Ml Syringe) 3 ml IVFLUSH QSHIFT [facility] Last Admin: 07/03/23 08:06 Dose: 3 ml Documented By: ETHEL Thiamine HCl (Thiamine Hcl 100 Mg Tablet) 100 mg PO DAILY [facility] Last Admin: 07/03/23 08:06 Dose: 100 mg Documented By: ETHEL Trazodone HCl (Trazodone Hcl 50 Mg Tablet) 50 mg PO BEDTIME PRN PRN Reason: anxiety or insomnia Last Admin: 07/03/23 01:18 Dose: 50 mg Documented By: JAYLA Venlafaxine HCl (Venlafaxine Hcl Er 150 Mg Cap.Er.24h) 150 mg PO DAILY [facility] Last Admin: 07/03/23 08:05 Dose: 150 mg Documented By: ETHEL Labs 07/01/23 06:24 07/03/23 05:03 Labs: Laboratory Results - last 24 hr 07/03/23 05:03 Hold Purple Top SEE NOTE Anion Gap 17 Estim Creat Clear Calc 95.5 Estimated GFR > 60 Random Glucose 108 Calcium 8.7 Magnesium 1.8 Total Creatine Kinase 57 Assessment and Plan (1) Alcohol use disorder: Status: Acute Plan Pt is a 62-year-old female with a PMH significant for?HTN, GERD, HFpEF, alcohol use disorder with history withdrawal, anxiety, and depression who presents to the ED with?numbness of face, chest, and legs x5 days. Patient states symptoms began when she noticed that her lips, tongue, and face on both sides felt numb and tingly. Pt will be admitted to the hospital for treatment further evaluation of numbness and tingling Likely secondary to vitamin deficiencies in the setting of alcohol use disorder. Acute alcohol withdrawal. No signs Patient along his standing history of heavy alcohol use continue phenobarb protocol Daily multivitamin, folic acid, thiamine Addiction Medicine consult Monitor on telemetry PT evaluation>home with family support Alcoholic myopathy/neuropathy Numbness and tingling of mouth, face, chest, legs. Resolving still with muscle pain to shoulders and back normal CPK Likely secondary to vitamin deficiencies in the setting of chronic alcohol use disorder IV thiamine, folic acid, multivitamin Toradol, heat pads as needed hypomagnesemia repleted Chronic intermittent chest pain/pressure Pt states symptoms have been occurring on and off for many years Patient has had cardiac workup in the past with cardiac catheterization showing nonobstructive CAD Question of alcoholic cardiomyopathy versus stress-induced cardiomyopathy Troponin negative Continue metoprolol Monitor on telemetry HFpEF Currently not in acute exacerbation Continue metoprolol Monitor on telemetry GERD Patient received IV Protonix in ED Continue PPI Insomnia Continue trazodone Anxiety/depression Continue venlafaxine Full Code Attending:?Dr. Rodrigues DVT Prophylaxis: Lovenox continued hospital stay for treatment of?acute alcohol withdrawal with vitamin deficiencies. Patient will be treated with phenobarb protocol, vitamin supplementation, and close monitoring. Time Spent With Patient Time: Total time managing care of this patient today ____ minutes. Quality Stroke Does the patient have a stroke diagnosis?: No VTE Prior VTE?: No VTE Risk Level:: Medical - moderate - high VTE Device Contraindication: Treatment Not Indicated VTE Drug Contraindication: N/A - Med Ordered
[2023-07-03 12:20] VITALS: BMI 24.7
--- NOTE | 2023-07-03 12:38 | MHC.CLN ---
NUTRITION DIET=REGULAR. DX ETOH WITHDRAWAL, VITAMIN DEFICIENCIES, MALNUTRITION. CURRENT INTAKE VARIABLE. ADDING MAGIC CUP BID TO INCREASE NUTRITIONAL INTAKE. PROVIDES 580 KCALS, 18 G PROTEIN. SEE CLINICAL NUTRITION ASSESSMENT 07/03/23.
--- NOTE | 2023-07-03 14:16 | MHC.RECOVRN ---
Met with pt in 378 to follow up after pt met with flattening machine operator over the weekend. Pt reports desire to initiate naltrexone and follow up with the [facility]. Reinforced education on naltrexone. Pt denies questions or concerns at this time. Discussed with Gretel Álvarez APRN. [facility] appt 07/10 at 11:00AM, CM aware.
[2023-07-03] MEDS: Naltrexone HCl 50 MG TABLET PO (14:41)
--- NOTE | 2023-07-03 14:54 | P.CDIM_ITS ---
PROVIDER RESPONSE TEXT: To clarify, the appropriate diagnosis supported by the clinical indicators: No nutritional deficiency QUERY TEXT: PHYSICIAN'S DOCUMENTATION REQUEST Date of Query: 07/03/2023 09:20 AM EDT Patient Name: Nubia Bell Admit Date: 07/01/2023 Dear Darlene Verduzco, A review of the medical record indicates additional documentation may be needed. Please review below and update the documentation accordingly. Clinical indicators: Ed 06/30 - Failure to thrive, malnutrition Vitamin deficiency most likely due to alcohol. Patients paresthesia's most likely secondary to malnutrition and vitamin deficiencies. To ensure the quality of the medical record, based on the above information and the recognized standa rd for (specify malnutrition severity), could you please verify which of the following diagnoses best reflects the pa tient's nutritional status. Specify severity) malnutrition is/was present and is a clinical diagnosis (please include additional support in the medical record) No nutritional deficiency Other (explain)Clinically unable to determine (explain)Thank you, Erika Ortiz, CCS, CDIS Use of terms such as suspected, likely, concern for, or probable (associated with a specific diagnosi s that is being evaluated, monitored, or treated as if it exists) are acceptable and can be coded in the inpatient se tting, when documented at the time of discharge. Please use your independent medical judgment in providing your response. THIS QUERY IS PART OF THE PERMANENT MEDICAL RECORD
[2023-07-03 14:56] VITALS: BP 107/71; PULSE 83; RESP 18; TEMP 36.8; O2SAT 100
[2023-07-03] MEDS: bisacodyL 10 MG SUPP.RECT PR (18:21)
[2023-07-03] MEDS: polyethylene glycoL 3350 17 GM POWD.PACK PO (18:21)
[2023-07-03 19:19] VITALS: BP 108/57; PULSE 81; RESP 15; TEMP 36.2; O2SAT 99
[2023-07-03] MEDS: Enoxaparin Sodium 40 MG/0.4 ML SYRINGE SUBCUT (21:20)
[2023-07-03 23:47] VITALS: BP 118/77; PULSE 87; RESP 16; TEMP 36.5; O2SAT 96
[2023-07-04] MEDS: traZODone HCL 50 MG TABLET PO (00:48)
[2023-07-04] MEDS: Omeprazole 20 MG CAPSULE.DR PO (05:40)
[2023-07-04 07:33] VITALS: BP 115/55; PULSE 90; RESP 16; TEMP 36.2; O2SAT 96
--- NOTE | 2023-07-04 08:09 | PM.DS ---
DS: Providers Provider Date of Service: 07/04/23 Date of admission: 07/01/23 09:30 Primary care physician: Le Haddad DO Consults: 06/30/23 19:53 Addiction Medicine Routine Consulting Provider: Addiction Covering Reason for consultation: alcohol withdrawal DS: Diagnosis Discharge Diagnosis (1) Alcohol use disorder: Status: Acute DS: Summary Hospital Course Hospital Course: Pt is a 62-year-old female with a PMH significant for?HTN, GERD, HFpEF, alcohol use disorder with history withdrawal, anxiety, and depression who presents to the ED with?numbness of face, chest, and legs x5 days. Patient states symptoms began when she noticed that her lips, tongue, and face on both sides felt numb and tingly. She also felt numbness and tingling on her chest and both legs. Patient with a long history of heavy alcohol intake. States she used to drink straight vodka up until 2 years ago when she switched to wine. Reports she normally drinks 1 bottle of wine mixed with cranberry juice. Admit she starts drinking in the morning and continues throughout the day, and rarely eats any food or drinks any other liquid. Patient has prescription for thiamine, folate, and multivitamins but admits she has not been compliant with her medications. She reports not having a very active lifestyle, and spending most of her time in bed watching TV. Reports having chronic shortness of breath with any kind of exertion, chronic intermittent chest pain/pressure that has been ongoing for many years and which she has had cardiac workup for in the past. Also states she has nausea and vomiting nearly every morning before she starts drinking. Endorses chronic epigastric abdominal pain and generalized weakness. Denies orthopnea. In the ED patient was afebrile with pulse as high as 100, and soft BP as low as 108/58. Labs were significant for MCV of 107.4, magnesium low normal at 1.6, bilirubin 2.4, AST 152, ALT 48, alk-phos 196, folate 2.3. H&H 13.6/37.8. Vitamin B12 835. Coag slightly elevated. CXR showed no active cardiopulmonary disease. Pt was treated with IVF and started on phenobarb protocol. Pt will be admitted to the hospital for treatment further evaluation of numbness and tingling Likely secondary to vitamin deficiencies in the setting of alcohol use disorder. 62 year old woman treated for alcohol intoxication and withdrawal as well as alcoholic myopathy/neuropathy. Patient had developed numbness and tingling to mouth, face, chest and legs as well as severe muscle pain to shoulders and back. She had normal CPK. This most likely in light of alcohol use and vitamin deficiencies in the setting of chronic alcohol use disorder. She was treated with IV thiamine, oral folic acid and multivitamin. Toradol helped immensely with the pain and heating pads were used as well. Patient was educated on the fact that she needs to stop drinking alcohol to avoid worsening this issue. She was treated with phenobarbital for any alcohol withdrawal symptoms for which she did not display. No arrhythmias noted on telemetry. She was seen by Physical therapy who recommended home with family support. Heart failure with preserved ejection fraction. No exacerbation during hospitalization. Continue metoprolol GERD. Continue PPI Mental health. Continue trazodone and Effexor Time Spent with Patient Time attestation: Total time managing care of this patient today ____ minutes. Discharge coordination time: Greater than 30 minutes Quality: Safe Use of Opioids Does Pt have an Active Cancer Diagnosis on the Problem List?: No Quality: Stroke Does the patient have a stroke diagnosis?: No Physical Exam Vital Signs: Vital Signs: Last Vital Signs Temp 97.2 F 07/04/23 07:33 Pulse 90 07/04/23 07:33 Resp 16 07/04/23 07:33 BP 115/55 L 07/04/23 07:33 Pulse Ox 96 07/04/23 07:33 O2 Del Method Room Air 07/04/23 07:33 BMI result Body Mass Index 24.7 Appearing in no acute distress head is normocephalic atraumatic eyes pupils are PERRLA sclera is anicteric mouth throat mucous membranes are intact and moist neck is supple no lymphadenopathy, no JVD noted lung sounds are clear to auscultation heart regular rate rhythm, clear S1, S2 positive bowel sounds, abdomen is soft, nontender neuro patient is alert x3, no focal deficits DS: Data Data Completed and Pending Completed studies during hospitalization [Text1]: Procedures Detoxification Services for Substance Abuse Treatment (05/02/22) Labs on day of discharge: Laboratory Results - last 24 hr 07/03/23 05:03 Total Creatine Kinase 57 Discharge Plan Discharge Anticipated Discharge Date/Time: 07/04/23 07:56 Patient Disposition: Home, Self-Care Discharge Diagnosis: Alcohol use disorder with withdrawal Referrals: Le Haddad DO [Primary Care Provider] - 1 Week Gretel Álvarez CNP [Nurse Practitioner] - 07/10/23 11:00 am (You have an appointment scheduled with the [facility] if you have to reschedule please call the office ) Discharge Medications: New thiamine mononitrate (vit B1) 100 mg Tablet 100 mg PO DAILY Qty: 30 0RF folic acid 1 mg Tablet 1 mg PO DAILY Qty: 30 0RF omeprazole 20 mg Capsule,Delayed Release(Dr/Ec) 20 mg PO DAILY@30 Qty: 30 0RF Continued metoprolol succinate 25 mg tablet extended release 24 hr 25 mg PO DAILY 90 Days Qty: 90 4RF lansoprazole 30 mg capsule,delayed release(DR/EC) 30 mg PO DAILY Qty: 30 3RF trazodone 50 mg tablet 50 mg PO BEDTIME PRN (Reason: anxiety or insomnia) venlafaxine 150 mg capsule,extended release 24hr 150 mg PO DAILY ondansetron 4 mg tablet,disintegrating 4 mg PO Q8H PRN (Reason: nausea and vomiting) Qty: 30 0RF Discharge Orders: Discharge Order (Routine); Ordered 07/04/23 Ordered By: Darlene Verduzco Diet: Advance to usual diet Activity on Discharge: As tolerated Stand Alone Forms: Patient Portal Discharge page Care Plan Goals: Complete resolution of symptoms Stop drinking alcohol Health Concerns: Alcohol use and withdrawal Plan of Treatment: Follow-up with primary care provider as needed Take all medications as prescribed Assessment: See discharge summary
--- NOTE | 2023-07-04 08:27 | MHC.CM.PN ---
PT WILL DC HOME TODAY VIA PRIVATE TRANSPORT NO SERVICES ORDERED
[2023-07-04] MEDS: Magnesium Oxide 400 MG TABLET PO (08:29)
[2023-07-04] MEDS: Naltrexone HCl 50 MG TABLET PO (08:29)
[2023-07-04] MEDS: 0.9 % Sodium Chloride Flush 3 ML SYRINGE IVFLUSH (08:29)
[2023-07-04] MEDS: Venlafaxine HCl ER 150 MG CAP.ER.24H PO (08:29)
[2023-07-04] MEDS: PHENobarbitaL 15 MG TABLET PO (08:29)
[2023-07-04] MEDS: Metoprolol Succinate ER 25 MG TAB.ER.24H PO (08:29)
[2023-07-04] MEDS: Folic Acid 1 MG TABLET PO (08:29)
[2023-07-04] MEDS: Thiamine HCL 100 MG TABLET PO (08:29)
== END 2023-07-04 12:03 | disposition home or self-care (01) | DRG 641 ==
LOC: HO.ED 16:49 → HO.EDOVER 19:34 → HO.S3 07-01 00:10
PROVIDERS: Admitting Provider Student in an Organized Health Care Education/Training Program; Emergency Provider Emergency Medicine Emergency Medical Services; PCP Family Medicine; Visit Provider Nurse Practitioner Acute Care
DX: E83.42 Hypomagnesemia (principal); I50.32 Chronic diastolic (congestive) heart failure; F10.988 Alcohol use, unspecified with other alcohol-induced disorder; F10.930 Alcohol use, unspecified with withdrawal, uncomplicated; G89.29 Other chronic pain; G62.1 Alcoholic polyneuropathy; R07.9 Chest pain, unspecified; G47.00 Insomnia, unspecified; K21.9 Gastro-esophageal reflux disease without esophagitis; F41.9 Anxiety disorder, unspecified; F32.A Depression, unspecified; Z20.822 Contact with and (suspected) exposure to COVID-19; Z79.899 Other long term (current) drug therapy
CPT/HCPCS: 36415; 71046; 80048; 80053; 80307; 82550; 82607; 82746; 83690; 83735; 84443; 84484; 85025; 85610; 85730; 87635; 97161; 99285; J1650; J1885; J2560; J3411; J3475

== ENCOUNTER → 2023-06-30 19:31 | Outpatient (BNV) | payer OTHER, SELFPAY | PROVIDERS: Admitting Provider Student in an Organized Health Care Education/Training Program; Emergency Provider Emergency Medicine Emergency Medical Services; PCP Family Medicine; Visit Provider Student in an Organized Health Care Education/Training Program | DX: F10.90 Alcohol use, unspecified, uncomplicated (principal) | CPT/HCPCS: 99223; 99232; 99239 ==

== ENCOUNTER 2023-07-13 13:14 | Outpatient (AMB) | payer OTHER, SELFPAY ==
--- NOTE | 2023-07-13 15:03 | MHC.AM.SUB ---
Intake Vital Signs 07/13/23 15:05 BP 116/74 Blood Pressure Location Lt brachial Pulse 88 Pulse Source Pulse Oximeter Pulse Oximetry (%) 95 Oxygen Delivery Method Room Air Intake Visit Reasons: MAT Intake Allergies No Known Allergies [No Known Allergies*] Allergy (Verified 06/30/23 16:21) HPI MAT Intake HPI Details Pt presents for MAT intake for AUD. Referred by hospitalist- pt had recent hospitalization to manage ETOH withdrawals at the end of July. Pt is poor historian. Cannot recall many details, states her short term memory is shot . Pt lives close to hospital in an apartment with her boyfriend. Her mode of transportation is the boyfriend, friends, or the bus. States she spends most of her time in bed because she has no friends and no where to go Unsure of her goals for recovery at this time, feels as though she wants to cut down but does not want to stop drinking. Reports she began drinking at the age of 13. She was drinking vodka almost daily for years until she switched to wine approximately 2 years ago. Reports she used to drink 2 bottles of wine, but has cut down to one daily- adds it to cran-humphrey juice. Multiple rehab stays, pt unable to remember how long ago the most recent detox stay was. States she used pills for years but no longer does. Has a past history of cocaine use- no longer uses. Denies any other illicit substance use. Reports she has previously trialed naltrexone years ago but is unsure if it was effective. Not currently attending AA or NA I hate that place Has a therapist through [facility]. Does not have a psych prescriber. Denies history of psychiatric hospitalization. Reports she OD'd years ago on sleeping pills. Denies current thoughts of SI. Picks at her legs to self soothe- multiple lesions noted to left lower leg. NKA History of CHF, HTN. Has had a hysterectomy- does not remember how long ago. Denies history of incarceration. Denies any open court cases, but reports she has been arrested before for acts of violence . PFSH Medical History Multinodular thyroid Anxiety CHF (congestive heart failure) ETOH abuse Surgical History History of esophagogastroduodenoscopy (EGD) Hx of colonoscopy Hx of hysterectomy Family History Mother Cancer Father No problems noted. Social History Household Members: Other Household Members Other:: roommate Housing: House Do you presently have visiting nurse or other home services: No Alcohol intake: current Alcohol intake frequency: 0-2 drinks per day Alcohol type: wine Patient Tobacco Use Status: Never used Tobacco Second Hand Smoke Exposure: Yes Substance Use Type: Crack/Cocaine Advance Directives Date on File: 06/26/17 service: No Current occupational status: disabled Review of Systems Const Details: Endorses little to no appetite Reports anorexia Musc Reports myalgias Skin/Breast Reports lesions Neuro Details: Reporting short term memory loss. Reports memory loss Psych Details: Reports she is awake all night and sleeps during the day. Reports abnormal sleep pattern and Reports memory loss Physical Exam Vital Signs: Last Vital Signs Pulse 88 07/13/23 15:05 BP 116/74 07/13/23 15:05 Pulse Ox 95 07/13/23 15:05 Oxygen Delivery Method Room Air 07/13/23 15:05 Const General: intoxicated appearing and poor hygiene Nutritional Appearance: average body habitus Resp Effort & Inspection: normal respiratory effort Skin Other: Scabbing sores to left leg of various sizes and in different stages of healing. General skin exam: dry skin Lesions: lesion noted Psych Appearance: disheveled Speech and movement: Slowed speech present (Psych) Attitude: Guarded attititude/behavior present Thought process: Tangential thought process present Assessment & Plan Assessment & Plan (1) Alcohol use disorder, moderate, dependence: Code(s): F10.20 - Alcohol dependence, uncomplicated Plan: Discussed harm reduction, discussed ways to cut down and what symptoms she should seek medical attention for if she goes into withdrawal. Discussed recovery supports- provided debt recovery officer information. Discussed how important it is to keep wounds on leg cleansed with soap and water. Educated pt on signs and symptoms of infection. Start naltrexone- and follow up in one week Medications: New naltrexone Take one half of a tablet for three days then increase to one tab. 50 mg PO DAILY 30 tabs 0RF Coding Level of Care Code New Pt Level 4 (94029) Diagnoses Alcohol use disorder, moderate, dependence F10.20
[2023-07-13 15:05] VITALS: BP 116/74; PULSE 88; O2SAT 95
== END 2023-07-13 14:46 | disposition home or self-care (01) ==
LOC: HO.HCC 13:14
PROVIDERS: PCP Family Medicine; Visit Provider Nurse Practitioner Family
DX: F10.20 Alcohol dependence, uncomplicated (principal)
CPT/HCPCS: 99204

== ENCOUNTER → 2023-07-13 13:14 | Outpatient (BNVA) | payer OTHER, SELFPAY | PROVIDERS: PCP Family Medicine; Visit Provider Nurse Practitioner Family | DX: F10.20 Alcohol dependence, uncomplicated (principal) | CPT/HCPCS: 99202 ==

== ENCOUNTER 2023-07-18 10:46 | Outpatient (REF) | payer OTHER, SELFPAY ==
[2023-07-18 13:24] LABS: MANUAL DIFF FLAG NO
[2023-07-18 13:52] LABS: Basophils Absolute Auto 0.1 X10*3/uL (0.0-0.2); Basophils Percent Auto 0.8 % (0-2); Eosinophils Absolute Auto 0.1 X10*3/uL (0.0-0.4); Eosinophils Percent Auto 0.5 % (0-4); Hematocrit 36.5 % (37.0-47.0); Hemoglobin 13.1 g/dl (12.0-16.0); Imm Gran Abs Auto 0.04 X10*3/uL (0.00-0.03); Imm Gran Pct Auto 0.3 % (0.0-0.4); Lymphocytes Percent Auto 14.5 % (20-40); Mean Corpuscular HGB Conc 35.9 g/dl (31.0-35.0); Mean Corpuscular Volume 105.8 fL (80.0-98.0); Mean Platelet Volume 11.3 fL (9.4-12.3); Monocytes Absolute Auto 1.2 X10*3/uL (0.1-1.2); Monocytes Percent Auto 9.1 % (2-11); Neutrophils Absolute Auto 10.1 x10*3/uL (2.0-8.3); Neutrophils Percent Auto 74.8 % (45-73); Platelet Count 288 X10*3/uL (160-400); Red Blood Count 3.45 X10*6/uL (4.20-5.50); Red Cell Distribution Width 15.9 % (11.0-16.0); White Blood Count 13.6 X10*3/uL (4.8-10.8)
[2023-07-18 13:59] LABS: Estimated Average Glucose 91 mg/dL; Hemoglobin A1c % 4.8 % (<6.0)
[2023-07-18 14:27] LABS: Folate 6.6 ng/mL (> or = 4.0); Vitamin B12 1345 pg/mL (200-900)
[2023-07-18 14:29] LABS: Alanine Aminotransferase 39 U/L (0-31); Albumin Level 3.5 g/dL (3.5-5.0); Alkaline Phosphatase 280 U/L (39-117); Anion Gap 17 (12-20); Aspartate Amino Transferase 162 U/L (5-31); Bilirubin Direct 2.5 mg/dL (0.0-0.5); Bilirubin Total 3.5 mg/dL (0.0-1.0); Blood Urea Nitrogen 3 mg/dL (9-16); Calcium 9.1 mg/dL (8.4-10.2); Carbon Dioxide 22 mmol/L (22-29); Chloride 103 mmol/L (96-108); Cholesterol 146 mg/dL (<200); Estimated Glomerular Filt Rate > 60; Glucose Random 119 mg/dL (60-115); HDL Cholesterol 9 mg/dL (>40); LDL Cholesterol Calculated 102 mg/dL (<100); Magnesium 1.8 mg/dL (1.6-2.6); Potassium 3.5 mmol/L (3.3-5.1); Sodium 138 mmol/L (135-145); Total Protein 7.1 g/dL (6.5-8.0); Triglycerides 178 mg/dL (<150)
[2023-07-18 14:30] LABS: Free T4 (Free Thyroxine) 1.06 ng/dL (0.71-1.85); Thyroid Stimulating Hormone 1.08 uIU/mL (0.32-4.0)
[2023-07-19 03:08] LABS: HIV AB/AG Nonreactive (Nonreactive); HIV Num 1 0.05 S/CO (0.00-0.99)
[2023-07-24 10:14] LABS: RPR Rapid Plasma Reagin NON-REACTIVE (NON-REACTIVE)
== END 2023-07-18 10:47 | disposition home or self-care (01) ==
LOC: HO.HHCL 10:46
PROVIDERS: Visit Provider Family Medicine
DX: Z11.4 Encounter for screening for human immunodeficiency virus [HIV] (principal); G62.9 Polyneuropathy, unspecified; I42.6 Alcoholic cardiomyopathy; I10 Essential (primary) hypertension; I25.10 Atherosclerotic heart disease of native coronary artery without angina pectoris; E78.5 Hyperlipidemia, unspecified; E04.2 Nontoxic multinodular goiter; R73.01 Impaired fasting glucose
CPT/HCPCS: 36415; 80048; 80061; 80076; 82306; 82607; 82746; 83036; 83735; 84134; 84439; 84443; 85025; 86592; 87389

== ENCOUNTER 2023-07-21 23:16 | Emergency (ER) | payer OTHER, SELFPAY ==
[2023-07-21 23:23] VITALS: BP 117/67; BP 132/84; PULSE 110; PULSE 114; RESP 20; TEMP 36.9; O2SAT 98; O2SAT 99; BMI 24.7
[2023-07-22] VITALS (8 sets, daily range): BP systolic 103–123; BP diastolic 55–74; PULSE 82–103; RESP 14–18; TEMP 36.6–37.2; O2SAT 95–99
[2023-07-22 00:19] LABS: Basophils Absolute Auto 0.1 X10*3/uL (0.0-0.2); Basophils Percent Auto 0.5 % (0-2); Eosinophils Absolute Auto 0.1 X10*3/uL (0.0-0.4); Eosinophils Percent Auto 0.6 % (0-4); Hematocrit 31.4 % (37.0-47.0); Hemoglobin 11.2 g/dl (12.0-16.0); Imm Gran Abs Auto 0.07 X10*3/uL (0.00-0.03); Imm Gran Pct Auto 0.5 % (0.0-0.4); Lymphocytes Absolute Auto 2.6 X10*3/uL (1.2-4.9); Lymphocytes Percent Auto 19.4 % (20-40); MANUAL DIFF FLAG NO; Mean Corpuscular HGB Conc 35.7 g/dl (31.0-35.0); Mean Corpuscular Hemoglobin 37.3 pg (27.0-33.0); Mean Corpuscular Volume 104.7 fL (80.0-98.0); Mean Platelet Volume 9.7 fL (9.4-12.3); Monocytes Absolute Auto 1.4 X10*3/uL (0.1-1.2); Monocytes Percent Auto 10.4 % (2-11); NRBC Pct Auto 0.2 /100WBC (0.0-0.2); Neutrophils Absolute Auto 9.1 x10*3/uL (2.0-8.3); Neutrophils Percent Auto 68.6 % (45-73); Platelet Count 264 X10*3/uL (160-400); Red Cell Distribution Width 15.8 % (11.0-16.0); White Blood Count 13.3 X10*3/uL (4.8-10.8)
--- NOTE | 2023-07-22 00:19 | ED.LOWEXIN ---
HPI - Extremity Injury (Lower) General Chief Complaint: Extremity Injury, Lower Stated Complaint: lower extremity Time Seen by Provider: 07/21/23 23:38 Source: patient Mode of arrival: EMS Limitations: no limitations History of Present Illness HPI Narrative: Patient comes to the emergency room via ambulance complaining of burning sensation on both legs. Patient states that her skin feels like it is on fire. Due to the pain, patient states that she cannot walk. Patient states that she was at home in her bed, tried to go to the bathroom to urinate, but due to the pain, she had to stop long term and urinate in the trash can. Patient denies falling. Patient denies any falls. Patient states that she was recently seen by her primary care physician, labs were drawn, patient was told that she has very high vitamin B12 levels, as she takes vitamins daily. Patient denies motor weakness. Patient continues to drink alcohol, last drink per patient was approximately 2-3 days ago. Patient denies any symptoms of alcohol withdrawal at this time. Patient denies any recent illnesses, no nausea vomiting diarrhea, no URI or UTI symptoms Related Data Home Medications Medication Instructions Recorded Confirmed trazodone 50 mg tablet 50 mg PO BEDTIME PRN anxiety or 07/11/22 06/30/23 insomnia venlafaxine 150 mg 150 mg PO DAILY 07/11/22 06/30/23 capsule,extended release 24 hr Previous Rx's Medication Instructions Recorded metoprolol succinate 25 mg 25 mg PO DAILY 90 days #90 tabs 06/11/20 tablet,extended release 24 hr lansoprazole 30 mg capsule,delayed 30 mg PO DAILY #30 caps 06/16/23 release ondansetron 4 mg disintegrating 4 mg PO Q8H PRN nausea and 06/19/23 tablet vomiting #30 tabs folic acid 1 mg tablet 1 mg PO DAILY #30 tabs 07/04/23 magnesium oxide 400 mg (241.3 mg 400 mg PO DAILY #7 tabs 07/04/23 magnesium) tablet omeprazole 20 mg capsule,delayed 20 mg PO DAILY@0630 #30 caps 07/04/23 release thiamine mononitrate (vit B1) 100 100 mg PO DAILY #30 tabs 07/04/23 mg tablet naltrexone 50 mg tablet 50 mg PO DAILY #30 tabs 07/13/23 Allergies Allergy/AdvReac Type Severity Reaction Status Date / Time No Known Allergies Allergy Verified 06/30/23 16:21 [No Known Allergies*] Review of Systems Review of Systems: Constitutional : No Weight loss, No Fever, No Chills, No Night Sweats, No Fatigue, No Malaise ENT/Mouth : No Hearing loss, No Ear Pain, No Nasal Congestion, No Sinus Pain, No Hoarseness, No sore throat, No Rhinorrhea, No Swallowing Difficulty Eyes: No Eye Pain, No Swelling, No Redness, No Foreign Body, No Discharge, No Vision Changes Cardiovascular : No Chest Pain, No SOB, No Dyspnea on Exertion, No Orthopnea, No Edema, No Palpitations Respiratory : No Cough, No Sputum, No Wheezing, No Smoke Exposure, No Dyspnea Gastrointestinal : No Nausea, No Vomiting, No Diarrhea, No Constipation, No abdominal Pain, No Hematochezia, No Melena Genitourinary : no irregular bleeding, No Dysuria, No Urinary Frequency, No Hematuria, No Urinary Incontinence, No Urgency, No Flank Pain, No Urinary Flow Changes, No Hesitancy Musculoskeletal : No joint pain, No Myalgias, No Joint Swelling Skin : No Skin Lesions, No rash Neuro : No Weakness, No Numbness,No Loss of Consciousness, No Dizziness, No Headache, complaining of burning sensation in the skin in both lower extremities, denies numbness or thinking, denies ascending symptoms Psych : No Anxiety/Panic, No Depression, No SI/HI/AH/VH, No Social Issues, Heme/Lymph: No Bruising, No Bleeding,No Lymphadenopathy Endocrine : No Polyuria, No Polydipsia, No Temperature Intolerance [facility] Past Medical History Medical History Alcohol use disorder Multinodular thyroid Anxiety CHF (congestive heart failure) ETOH abuse Surgical History History of esophagogastroduodenoscopy (EGD) Hx of colonoscopy Hx of hysterectomy Family History Family History Mother Cancer Father No problems noted. Social History Social History Household Members: Other Household Members Other:: roommate Housing: House Do you presently have visiting nurse or other home services: No Alcohol intake: current Alcohol intake frequency: 0-2 drinks per day Alcohol type: wine Patient Tobacco Use Status: Never used Tobacco Second Hand Smoke Exposure: Yes Substance Use Type: Crack/Cocaine Advance Directives: Yes Advance Directives Information Provided: Yes Advance Directives on File: No Advance Directives Date on File: 06/26/17 service: No Current occupational status: disabled Physical Exam Vital Signs: Vital Signs: Last Vital Signs Temp 98.4 F 07/21/23 23:23 Pulse 114 H 07/21/23 23:23 Resp 20 07/21/23 23:23 BP 117/67 07/21/23 23:23 Pulse Ox 99 07/21/23 23:23 O2 Del Method Room Air 07/21/23 23:23 BMI result Body Mass Index 24.7 Const: Other: Appearance: Alert. Oriented X3. No acute distress. Eyes: Pupils equal, round and reactive to light. ENT: Pharynx normal. Neck: Normal inspection. Neck supple. No lymph nodes noted. No crepitus CVS: Normal heart rate and rhythm. Pulses normal. Normal S1 and S2 Respiratory: No respiratory distress. Breath sounds normal. No Wheezing. No rales Abdomen: Soft and nontender. No rigidity. No distention. Skin: Skin warm and dry. Normal skin color. Normal skin turgor. Pain to palpation over the skin. Extremities: No lower extremity edema. No Lacerations. Patient does not have any lower extremity or upper extremity weakness Neuro: Oriented X 3. No motor deficit. No sensory deficit. Moving all extremities. No slurred speech. CN 2 through 12 grossly intact Psych: calm, cooperative, normal affect Course Course Course Narrative: -I reviewed patient's medical records. Patient was discharged from this hospital on 07/04/2023. Patient was admitted for similar symptoms of numbness, tingling and burning sensation of the face, chest, legs. Patient was diagnosed with alcoholic neuropathy/myopathy. Patient was started on folic acid and thiamine. Physical therapy evaluated the patient and they recommended to discharge the patient home with family support. -we will repeat patient's labs to evaluate levels. Medical Decision Making Medical Decision Making [facility] Narrative: -was attempted to ambulate the patient. However, due to pain, patient refused to walk. Patient states that it hurts too much to walk. Response him pain medication. -according to the techs who help walk the patient, patient has unsteady gait. -physical therapy and case management consult is pending for the morning -vitamin B12 levels a few days ago was elevated. Repeat labs pending, results may not be back tonight. -patient is able to walk. Patient does not seem to have weakness issues, only pain. The pain is in lower extremities diffusely, non ascending paralysis or paresthesias. Guillain-Rodeo not suspected -sign-out given to Dr. Mooney Differential Diagnosis Differential Diagnoses: The differential diagnosis associated with the presentation includes (Alcoholic neuropathy, alcoholic myopathy, ) Admission/Observation Consideration of admission/observation: Escalation of care including admission/observation considered (Patient will remain under observation until patient gets evaluated by care team and case management. Patient was recently discharged home but did not go well) Lab Data MDM Lab Attestation statement: I reviewed the patient's lab results. 07/22/23 00:15 07/22/23 00:15 Labs: Lab Results 07/22/23 Range/Units 00:15 WBC 13.3 H (4.8-10.8) X10*3/uL RBC 3.00 L (4.20-5.50) X10*6/uL Hgb 11.2 L (12.0-16.0) g/dl Hct 31.4 L (37.0-47.0) % MCV 104.7 H (80.0-98.0) fL MCH 37.3 H (27.0-33.0) pg MCHC 35.7 H (31.0-35.0) g/dl RDW 15.8 (11.0-16.0) % Plt Count 264 (160-400) X10*3/uL MPV 9.7 (9.4-12.3) fL Immature Gran % (Auto) 0.5 H (0.0-0.4) % Neut % (Auto) 68.6 (45-73) % Lymph % (Auto) 19.4 L (20-40) % [place] % (Auto) 10.4 (2-11) % Eos % (Auto) 0.6 (0-4) % Baso % (Auto) 0.5 (0-2) % Lymph # (Auto) 2.6 (1.2-4.9) X10*3/uL [place] # (Auto) 1.4 H (0.1-1.2) X10*3/uL Eos # (Auto) 0.1 (0.0-0.4) X10*3/uL Baso # (Auto) 0.1 (0.0-0.2) X10*3/uL Abs Immat Gran (auto) 0.07 H (0.00-0.03) X10*3/uL Absolute Neuts (auto) 9.1 H (2.0-8.3) x10*3/uL Absolute Nucleated RBC 0.020 H (0.0-0.012) X10*3/uL Nucleated RBC % (auto) 0.2 (0.0-0.2) /100WBC Sodium 139 (135-145) mmol/L Potassium 3.4 (3.3-5.1) mmol/L Chloride 103 (96-108) mmol/L Carbon Dioxide 24 (22-29) mmol/L Anion Gap 15 (12-20) BUN 3 L (9-16) mg/dL Creatinine 0.52 (0.5-1.4) mg/dL Estim Creat Clear Calc 94.4 Estimated GFR > 60 Random Glucose 135 H (60-115) mg/dL Calcium 8.7 (8.4-10.2) mg/dL Magnesium 1.6 (1.6-2.6) mg/dL Total Bilirubin 2.8 H (0.0-1.0) mg/dL AST 147 H (5-31) U/L ALT 30 (0-31) U/L Alkaline Phosphatase 282 H (39-117) U/L B-Natriuretic Peptide 20 (<100) pg/mL Total Protein 6.5 (6.5-8.0) g/dL Albumin 3.2 L (3.5-5.0) g/dL Vitamin B12 1108 H (200-900) pg/mL Folate 6.9 (> or = 4.0) ng/mL Ethyl Alcohol 111 mg/dL Discharge Plan 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 Patient Disposition: Still a Patient Prescriptions: No Action metoprolol succinate 25 mg tablet extended release 24 hr 25 mg PO DAILY 90 Days Qty: 90 4RF lansoprazole 30 mg capsule,delayed release(DR/EC) 30 mg PO DAILY Qty: 30 3RF thiamine mononitrate (vit B1) 100 mg Tablet 100 mg PO DAILY Qty: 30 0RF folic acid 1 mg Tablet 1 mg PO DAILY Qty: 30 0RF omeprazole 20 mg Capsule,Delayed Release(Dr/Ec) 20 mg PO DAILY@0630 Qty: 30 0RF magnesium oxide 400 mg (241.3 mg magnesium) Tablet 400 mg PO DAILY Qty: 7 0RF trazodone 50 mg tablet 50 mg PO BEDTIME PRN (Reason: anxiety or insomnia) venlafaxine 150 mg capsule,extended release 24hr 150 mg PO DAILY ondansetron 4 mg tablet,disintegrating 4 mg PO Q8H PRN (Reason: nausea and vomiting) Qty: 30 0RF naltrexone 50 mg tablet 50 mg PO DAILY Qty: 30 0RF Rx Instructions: Take one half of a tablet for three days then increase to one tab.
[2023-07-22 00:33] LABS: Alanine Aminotransferase 30 U/L (0-31); Albumin Level 3.2 g/dL (3.5-5.0); Alkaline Phosphatase 282 U/L (39-117); Anion Gap 15 (12-20); Aspartate Amino Transferase 147 U/L (5-31); Bilirubin Total 2.8 mg/dL (0.0-1.0); Blood Urea Nitrogen 3 mg/dL (9-16); Calcium 8.7 mg/dL (8.4-10.2); Carbon Dioxide 24 mmol/L (22-29); Chloride 103 mmol/L (96-108); Creatinine Clr Calc Pharmacy 94.4; Estimated Glomerular Filt Rate > 60; Ethanol 111 mg/dL; Glucose Random 135 mg/dL (60-115); Magnesium 1.6 mg/dL (1.6-2.6); Potassium 3.4 mmol/L (3.3-5.1); Sodium 139 mmol/L (135-145); Total Protein 6.5 g/dL (6.5-8.0)
[2023-07-22 00:39] LABS: B Type Natriuretic Peptide 20 pg/mL (<100)
[2023-07-22 01:08] LABS: Folate 6.9 ng/mL (> or = 4.0); Vitamin B12 1108 pg/mL (200-900)
--- NOTE | 2023-07-22 01:10 | MHC.EDTECH ---
pt unable to ambulate more than a few steps. Pt in a lot of pain and is shaky on her feet
[2023-07-22] MEDS: Gabapentin 300 MG CAPSULE PO (03:24)
[2023-07-22] MEDS: LORazepam 1 MG TABLET 2 MG PO (04:15)
--- NOTE | 2023-07-22 06:45 | PC.NURSE ---
pt nicolle from home with reports a burning sensation on bilateral legs and stomach. PT has history of alcoholic myopathy, HTN, CHF, and depression. PT initially reported that her last drink was 2-3 days ago but later reported she last drank at 9pm 07/21. PT reports she has 1 bottle of wine a day. PT states she does not sleep regularly. Has anxiety and grief around boyfriends . PT ssee therapist weekly. CIWA 7. Notified Dr. Arias PT medication as per NOV. Encouraged PT to shut lights in room to allow her to rest. She states she doesn't like the dark . Medication list completed, Diet order place. Awaiting PT consult. Call kramer within reach plan of care ongoing.
--- NOTE | 2023-07-22 07:09 | PHA.MEDREC ---
Pharmacy Consult ? Medication Reconciliation Pharmacy has completed the medication reconciliation. Checked med rec done overnight
[2023-07-22] MEDS: Metoprolol Succinate ER 25 MG TAB.ER.24H PO (09:13)
[2023-07-22] MEDS: Loratadine 10 MG TABLET PO (09:13)
[2023-07-22] MEDS: Naltrexone HCl 50 MG TABLET PO (09:13)
[2023-07-22] MEDS: Venlafaxine HCl ER 150 MG CAP.ER.24H PO (09:13)
[2023-07-22] MEDS: Omeprazole 20 MG CAPSULE.DR PO (09:13)
[2023-07-22] MEDS: Thiamine HCL 100 MG TABLET PO (09:13)
[2023-07-22] MEDS: Folic Acid 1 MG TABLET PO (09:13)
[2023-07-22] MEDS: Gabapentin 100 MG CAPSULE PO ×3 (09:14→21:41)
--- NOTE | 2023-07-22 09:37 | PC.NURSE ---
Report called to overflow
[2023-07-22 09:47] LABS: COVID-19 Test Negative (Negative); IDNOW Serial# 08D9AD1C
--- NOTE | 2023-07-22 11:03 | PC.NURSE ---
pt settled in to overflow from ed. tv placed on. new sheets. call kramer in reach, bed alarm on. no distress. breathing well. +CMS. calm, cooperative, aox4. taken to commode. pt changed for urinary incontinence. new gown/pad/ember care w tech. voidx1.
--- NOTE | 2023-07-22 12:08 | PC.NURSE ---
given food. walking with PT with walker. no distress. CIWA remains 0
--- NOTE | 2023-07-22 12:12 | PC.NURSE ---
per provider amina pt changed to q8 vs
--- NOTE | 2023-07-22 15:00 | MHC.EDTECH ---
This pct assumed care of pt at 1500 ,vitals taken ,pt sister came for a visit ,Call kramer within Pt reach .
--- NOTE | 2023-07-22 15:15 | PC.NURSE ---
provider amina garcia notified pt ciwa 5. no distress.
--- NOTE | 2023-07-22 15:19 | MHC.CM.ED ---
Received case management consult overnight. Patient came to the ER due to lower extremity pain. Work up essentially negative. Physical therapy eval completed. Short term rehab is recommended. Met with patient in regards to discharge planning. Patient lives with her boyfriend and 2 roommates, ambulates independently and had no services prior to coming to the hospital. PCP verified. HCP verified to be on file. Patient received 3 Pfizer vaccines. Patient is not sure if she wants to go to [facility] or wants outpatient physical therapy. Patient will think about it and let CM what her preference would be. List of facilities contracted with patient's insurance provided from [employer]. Continue to monitor for d/c needs.
--- NOTE | 2023-07-22 17:51 | MHC.EDTECH ---
Pt was given dinner ,ate 50 % of meal ,drank 360 ml fluids ,no apparent distress noted ,pt talking on the Phone with her boyfriend .
--- NOTE | 2023-07-22 19:09 | MHC.EDTECH ---
Patient was assisted unto bedside commode ,pt void large amount of urine ,Patient give herself a sponge bath ,back in bed ,bed alarm on .
--- NOTE | 2023-07-22 21:21 | MHC.EDTECH ---
Pt vitals taken ,pt was assisted unto bedside commode ,void ,back to bed ,alarm on bed and call kramer within Pt reach ,Snack offer ,pt refused .
--- NOTE | 2023-07-22 21:25 | PC.NURSE ---
Pt assisted to bedside commode and then assisted back into bed. Plan of care ongoing.
--- NOTE | 2023-07-23 | MHC.EDTECH ---
Patient was assisted unto bedside commode ,void ,then was assisted back to bed ,pt very unsteady ,bed alarm on bed .
--- NOTE | 2023-07-23 02:37 | MHC.EDTECH ---
Patient just got up was assisted unto bedside commode ,then back to bed ,bed alarm on bed .
[2023-07-23 06:47] VITALS: BP 130/80; PULSE 78; RESP 16; O2SAT 96
[2023-07-23] MEDS: Folic Acid 1 MG TABLET PO (08:42)
[2023-07-23] MEDS: Metoprolol Succinate ER 25 MG TAB.ER.24H PO (08:42)
[2023-07-23] MEDS: Gabapentin 100 MG CAPSULE PO ×3 (08:45→20:24)
[2023-07-23] MEDS: Omeprazole 20 MG CAPSULE.DR PO (08:45)
[2023-07-23] MEDS: Thiamine HCL 100 MG TABLET PO (08:45)
[2023-07-23 08:49] VITALS: BP 113/52; PULSE 82; RESP 16
[2023-07-23] MEDS: Venlafaxine HCl ER 150 MG CAP.ER.24H PO (09:10)
[2023-07-23] MEDS: Naltrexone HCl 50 MG TABLET PO (09:10)
--- NOTE | 2023-07-23 09:17 | PC.NURSE ---
assumed care of pt at 0700. pt asked to get out of bed and go for a walk. pt ambulated with walker around overflow unit, tech standby assist. pt reporting neuropathy pain, medicated per nov. pt ate breakfast and washed up for day. pt at bedside visiting. pt currently resting quietly in bed, watching tv. rr even/unlabored. call kramer within pt reach. plan of care ongoing.
--- NOTE | 2023-07-23 12:50 | PC.NURSE ---
CIWA 8 pt has very mild tremor in extended arms. pt sts she thinks she may be hearing and seeing things that aren't there. pt activity has been normal although pt sts she is having some anxiety and agitation. pt reports burning sensation in abdomen and tingling in BLLE. medicated earlier for this per mar. pt stable jd, laying quietly in bed watching tv and closing eyes. rr even/unlabored.
--- NOTE | 2023-07-23 13:34 | PC.NURSE ---
pt out of bed to commode with walker. pt sts she feels weak while standing. transferred to commode well. pt voided strong smelling urine. pt sts she is having back pain. t/w offered for pt to sit in recliner, pt refused. pt back to bed, watching tv with visitor/friend at bedside.
[2023-07-23] MEDS: hydrOXYzine HCL 50 MG TABLET PO (13:48)
--- NOTE | 2023-07-23 13:53 | PC.NURSE ---
pt medicated per mar for anxiety. pt visitor/friend at bedside.
[2023-07-23 14:00] VITALS: BP 108/72; PULSE 85; RESP 16; TEMP 36.2; O2SAT 94
--- NOTE | 2023-07-23 14:02 | MHC.CM.ED ---
Addendum entered by Niurka Noriega 07/23/23 15:14: [facility] PASRR Level 2 obtained. Original Note: Patient remains in ER overflow. Met with patient in regards to discharge planning. Patient has decided to go to [facility]. Choices: 1) [facility] 2) [facility]. Referrals made via [facility]. [facility] doesn't have a bed. Still waiting to hear from [facility]. Patient will need [facility] PASRR Level 2 due to ETOH abuse. T/W already submitted for this. Continue to monitor for d/c needs
[2023-07-23] MEDS: Ondansetron ODT 4 MG TAB.RAPDIS TRANSLINGU (14:09)
--- NOTE | 2023-07-23 14:10 | PC.NURSE ---
pt medicated per MAR for increased nausea.
--- NOTE | 2023-07-23 15:51 | MHC.EDTECH ---
Assist patient with the television to find a movie.
--- NOTE | 2023-07-23 19:23 | PC.NURSE ---
pt rang to use bathroom. pt standby assist with walker to bedside commode. pt voided odorous urine. assisted back to bed. bed alarm on, pt watching tv. call kramer within reach. plan of care ongoing.
[2023-07-23 21:26] VITALS: BP 108/60; PULSE 84; RESP 16; TEMP 36.2; O2SAT 97
--- NOTE | 2023-07-23 23:31 | PC.NURSE ---
per round assessment is done, no significant found. pt can freely move out of bed to use bedside commode. BS. active, LBM 07/21/23 per pt, throughout the lung sounds diminish, rhiannon. legs has scatter scabs from scratches, and no tremor noticed. no pain. pt said felt tremor when she walks. will cont. to monitor any changes.
[2023-07-24] MEDS: LORazepam 1 MG TABLET 2 MG PO (02:15)
--- NOTE | 2023-07-24 02:19 | PC.NURSE ---
pt woke up with pain at the rhiannon. foot plantar. warm to touch. pt was anxious about her foot. I am done with walking. agitated. provided ativan per nov. will cont to monitor any changes.
[2023-07-24 06:00] VITALS: BP 99/43; PULSE 60; RESP 18; TEMP 36.2; O2SAT 96
--- NOTE | 2023-07-24 07:35 | MHC.EDTECH ---
Assisted pt to commode and back to bed.
--- NOTE | 2023-07-24 08:34 | MHC.CM.PN ---
Addendum entered by Juliana Frazier 07/24/23 09:35: [facility] WILL NOT TAKE PT TODAY DUE TO HER CIWA SCORE Original Note: PT WAITING FOR STR PLACEMENT REFERRAL MADE TO 17 FACILITIES 14 HAVE DECLINED REFERRAL [facility] HAS NOT RESPONDED [facility]ZMENDI AND [facility] ARE INTERESTED UPDATES SENT
--- NOTE | 2023-07-24 09:52 | MHC.EDTECH ---
Assisted pt to commode and back into bed.
[2023-07-24] MEDS: Omeprazole 20 MG CAPSULE.DR PO (10:12)
[2023-07-24] MEDS: Thiamine HCL 100 MG TABLET PO (10:12)
[2023-07-24] MEDS: Gabapentin 100 MG CAPSULE PO ×3 (10:12→19:44)
[2023-07-24] MEDS: Folic Acid 1 MG TABLET PO (10:12)
[2023-07-24] MEDS: Venlafaxine HCl ER 150 MG CAP.ER.24H PO (10:14)
--- NOTE | 2023-07-24 10:19 | PC.NURSE ---
CIWA score of 1 at this time, patient reports still feeling groggy from previous medication on overnight. patient requesting icy socks for her feet, offered ice packs due to not having requested item. patient declined. medicated per the NOV, call kramer in place. resting quietly in room with eyes closed
--- NOTE | 2023-07-24 11:57 | MHC.EDTECH ---
Assisted pt to commode and back to bed.
[2023-07-24] MEDS: Naltrexone HCl 50 MG TABLET PO (12:12)
--- NOTE | 2023-07-24 12:18 | PC.NURSE ---
able to ambulate to bathroom using walker and one assist. patient states she has no appetite today and is just tired. call kramer remains within reach.
[2023-07-24 13:54] VITALS: BP 124/62; PULSE 87; RESP 19; TEMP 36.4; O2SAT 98
[2023-07-24 21:40] VITALS: BP 126/71; PULSE 92; RESP 20; TEMP 36.3; O2SAT 98
[2023-07-24] MEDS: hydrOXYzine HCL 50 MG TABLET PO (23:19)
[2023-07-25] MEDS: Acetaminophen 325 MG TABLET 650 MG PO (02:52)
--- NOTE | 2023-07-25 03:37 | PC.NURSE ---
Pt seen on bed alert and oriented, c/o leg numbness, burning and tingling, medicated with scheduled Gabapentin, also c/o sore throat and coughing, when pt was revisited pt was asleep, no coughing spell noted throughout the time, [facility], woke past midnight and claimed her leg discomfort has intensified, Dr. Stewart was notified, gace Tylenol 650 mg po, pt slept after, assisted to commode as needed.
[2023-07-25 05:47] VITALS: BP 110/72; PULSE 74; RESP 18; TEMP 36.7; O2SAT 95
[2023-07-25] MEDS: hydrOXYzine HCL 50 MG TABLET PO ×2 (07:50→20:43)
[2023-07-25] MEDS: LORazepam 1 MG TABLET 2 MG PO ×2 (07:50→14:56)
[2023-07-25] MEDS: Thiamine HCL 100 MG TABLET PO (09:14)
[2023-07-25] MEDS: Omeprazole 20 MG CAPSULE.DR PO (09:14)
[2023-07-25] MEDS: Metoprolol Succinate ER 25 MG TAB.ER.24H PO (09:14)
[2023-07-25] MEDS: Gabapentin 100 MG CAPSULE PO ×3 (09:14→20:43)
[2023-07-25] MEDS: Folic Acid 1 MG TABLET PO (09:14)
[2023-07-25] MEDS: Venlafaxine HCl ER 150 MG CAP.ER.24H PO (10:38)
[2023-07-25] MEDS: Naltrexone HCl 50 MG TABLET PO (10:38)
[2023-07-25] MEDS: Loratadine 10 MG TABLET PO (10:42)
[2023-07-25 14:00] VITALS: BP 114/62; PULSE 93; RESP 18; TEMP 36; O2SAT 96
--- NOTE | 2023-07-25 14:41 | MHC.CM.PN ---
Patient remains in ED. Scoring 2 on CIWA. CM will continue to follow CIWA scores and update facilities when zero.
--- NOTE | 2023-07-25 16:06 | MHC.EDTECH ---
Patient used walker to ambulate to bathroom with 1:1 assist. Patient had poor coordination walking back to bed. Nurse aware.
--- NOTE | 2023-07-26 02:16 | PC.NURSE ---
Assumed care at 0045. Patient in bed sleeping. Respirations even. No signs of distress. Bed alarm on. Call kramer in reach.
[2023-07-26 05:54] VITALS: BP 121/67; PULSE 85; RESP 19; TEMP 36; O2SAT 96
[2023-07-26] MEDS: Naltrexone HCl 50 MG TABLET PO (09:00)
[2023-07-26] MEDS: Venlafaxine HCl ER 150 MG CAP.ER.24H PO (09:00)
[2023-07-26] MEDS: Omeprazole 20 MG CAPSULE.DR PO (09:01)
[2023-07-26] MEDS: Gabapentin 100 MG CAPSULE PO ×2 (09:01→14:33)
[2023-07-26] MEDS: Folic Acid 1 MG TABLET PO (09:01)
[2023-07-26] MEDS: Metoprolol Succinate ER 25 MG TAB.ER.24H PO (09:01)
[2023-07-26] MEDS: Loratadine 10 MG TABLET PO (09:01)
[2023-07-26] MEDS: Thiamine HCL 100 MG TABLET PO (09:01)
--- NOTE | 2023-07-26 11:51 | MHC.CM.ED ---
Addendum entered by Niurka Noriega 07/26/23 15:38: Insurance auth obtained by [facility]. Patient can leave at 5pm. Fidelia ABDUL booked. [facility] with chart. Patient, Wen LENZ and Malorie GIL aware. YOANNA Nolasco CM will speak to patient's sister at bedside about d/c plan. Addendum entered by Niurka Noriega 07/26/23 14:00: [facility], [facility] and [facility] are able to offer a bed. Met with patient and sig other. [facility] is 1st choice. [facility] has been asked to go for insurance auth. [facility] requesting additional physical therapy note. Physical therapy is out of the building for the day and will not return until Saturday 07/28. Auth is still being pursued but may not be obtained until additional PT note is completed on Saturday 07/28. Original Note: Patient remains in ER overflow. CIWA is 0. [facility] no longer has a bed. Referral resent to all facilities contracted with [facility] within 50 miles. Continue to monitor for d/c needs.
--- NOTE | 2023-07-26 12:23 | PC.NURSE ---
Pt given lunch tray. pt ambulatory to restroom with walker.
[2023-07-26 14:27] VITALS: BP 112/58; PULSE 81; RESP 18; TEMP 36.4; O2SAT 100
--- NOTE | 2023-07-26 17:22 | PC.NURSE ---
Meal tray provided. Awaiting ambulance dispo.
== END 2023-07-26 19:33 | disposition skilled nursing facility (03) ==
PROVIDERS: Nurse Practitioner Family; Emergency Provider Emergency Medicine; PCP Family Medicine
DX: G62.1 Alcoholic polyneuropathy (principal); M79.604 Pain in right leg; M79.605 Pain in left leg; R26.81 Unsteadiness on feet; R06.02 Shortness of breath; Z11.52 Encounter for screening for COVID-19; Z20.822 Contact with and (suspected) exposure to COVID-19; Z79.899 Other long term (current) drug therapy
CPT/HCPCS: 36415; 80053; 80307; 82607; 82746; 83735; 83880; 85025; 87635; 97162; 99285

== ENCOUNTER 2023-09-05 14:21 | Outpatient (REF) | payer OTHER, SELFPAY ==
[2023-09-05 16:12] LABS: MANUAL DIFF FLAG NO
[2023-09-05 16:17] LABS: Basophils Percent Auto 0.5 % (0-2); Eosinophils Absolute Auto 0.1 X10*3/uL (0.0-0.4); Eosinophils Percent Auto 1.3 % (0-4); Hematocrit 42.9 % (37.0-47.0); Hemoglobin 14.6 g/dl (12.0-16.0); Imm Gran Abs Auto 0.02 X10*3/uL (0.00-0.03); Imm Gran Pct Auto 0.3 % (0.0-0.4); Lymphocytes Absolute Auto 2.5 X10*3/uL (1.2-4.9); Lymphocytes Percent Auto 33.2 % (20-40); Mean Corpuscular Hemoglobin 33.2 pg (27.0-33.0); Mean Corpuscular Volume 97.5 fL (80.0-98.0); Mean Platelet Volume 10.4 fL (9.4-12.3); Monocytes Absolute Auto 0.6 X10*3/uL (0.1-1.2); Monocytes Percent Auto 8.4 % (2-11); Neutrophils Absolute Auto 4.3 x10*3/uL (2.0-8.3); Neutrophils Percent Auto 56.3 % (45-73); Platelet Count 250 X10*3/uL (160-400); Red Cell Distribution Width 13.3 % (11.0-16.0); White Blood Count 7.6 X10*3/uL (4.8-10.8)
[2023-09-05 16:29] LABS: Alanine Aminotransferase 29 U/L (0-31); Albumin Level 3.9 g/dL (3.5-5.0); Alkaline Phosphatase 103 U/L (39-117); Anion Gap 18 (12-20); Aspartate Amino Transferase 62 U/L (5-31); Bilirubin Total 1.3 mg/dL (0.0-1.0); Blood Urea Nitrogen 8 mg/dL (9-16); Calcium 10.2 mg/dL (8.4-10.2); Carbon Dioxide 23 mmol/L (22-29); Chloride 104 mmol/L (96-108); Estimated Glomerular Filt Rate > 60; Glucose Random 139 mg/dL (60-115); Potassium 3.3 mmol/L (3.3-5.1); Sodium 142 mmol/L (135-145); Total Protein 7.8 g/dL (6.5-8.0)
== END 2023-09-05 14:22 | disposition home or self-care (01) ==
LOC: HO.HHCL 14:21
PROVIDERS: Visit Provider Internal Medicine
DX: F10.29 Alcohol dependence with unspecified alcohol-induced disorder (principal)
CPT/HCPCS: 36415; 80053; 85025

== ENCOUNTER 2023-12-18 16:52 | Emergency (ER) | payer OTHER, SELFPAY ==
--- NOTE | ~2023-12-18 | CT_ITS ---
EXAMINATION: CT ABDOMEN AND PELVIS WITH CONTRAST CLINICAL INFORMATION: Right upper quadrant abdominal pain. COMPARISON: 05/01/2022 TECHNIQUE: Multidetector volumetric images were obtained from the superior aspect of the liver through the pubic symphysis following administration 85 mL of Omnipaque 350 intravenous contrast. Sagittal and coronal reformatted images were obtained on the technologist's workstation. Oral contrast: No This CT examination was performed using dose optimization techniques as appropriate, variously including the following: *Automated exposure control *Adjustment of mA and/or kV according to patient size (this includes techniques or standardized protocols for targeted exams where dose is matched to indication/reason for exam; i.e. extremities or head) *Use of iterative reconstruction technique DLP: 411 mGy-cm FINDINGS: LUNG BASES: The visualized lung bases are unremarkable. Small sliding-type hiatal hernia. LIVER, GALLBLADDER, AND BILIARY TREE: Relative hypoattenuation of the hepatic parenchyma is consistent with steatosis. No focal hepatic lesions are identified. Liver is normal in size and contour. No biliary ductal dilatation. Numerous small calcified gallstones are present in the gallbladder with associated sludge. No gallbladder wall thickening or surrounding inflammatory changes. Common bile duct is normal in caliber without appreciable choledocholithiasis. PANCREAS: Unremarkable. SPLEEN: Unremarkable. ADRENAL GLANDS: Unremarkable. KIDNEYS AND URETERS: The kidneys are normal in size, shape, and attenuation. No hydronephrosis, hydroureter, or calculi seen. No perinephric stranding. BLADDER: Unremarkable. GASTROINTESTINAL TRACT: Small hiatal hernia. There is a mixture of a moderate volume of solid stool in the colon with liquid stool. Areas of mild colonic wall thickening and hyperemia is noted, raising the possibility of a mild colitis. Small bowel is normal in caliber. No intraperitoneal free fluid or free air. ABDOMINAL WALL: No acute findings. LYMPH NODES: Normal. 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 Abdominal aorta is normal in caliber. PELVIC VISCERA: Uterus is absent. No adnexal lesions OSSEOUS STRUCTURES: No acute fracture. Mild left common femoral scoliosis. Mild multilevel degenerative disc disease. 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 Cholelithiasis without evidence of acute cholecystitis. 2. Small sliding-type hiatal hernia. 3. Subtle colonic wall thickening and hyperemia with areas of liquid stool in the colon, raising the possibility of a mild colitis. Recommend correlation for lower GI symptoms. 4. 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 5. Hepatic steatosis. Fleischner guidelines were followed.
[2023-12-18 16:59] VITALS: BP 137/81; BP 140/100; PULSE 104; PULSE 65; RESP 12; TEMP 36.9; O2SAT 97; O2SAT 99; BMI 21.8
--- NOTE | 2023-12-18 17:34 | ED_ITS ---
HPI - General Adult General Chief complaint: Abdominal Pain Stated complaint: No bowel movement in two weeks Time Seen by Provider: 12/18/23 17:00 History of Present Illness HPI narrative: The patient is a 63-year-old woman with a history of alcoholism. She comes to the hospital today by ambulance complaining of pain that she attributes to being constipated. She says she has not had a bowel movement in 2 weeks. She says she has been passing gas. She says that she has been vomiting but she says that she always vomits. She says she typically vomits every morning. She does not describe an increased frequency of vomiting over the last 2 weeks. No fever, sweats, chills. She says her last alcohol was yesterday evening. She also says that she did not take her medications today because she was not feeling well. Related Data Home Medications ?Medication ?Instructions ?Recorded ?Confirmed venlafaxine 150 mg 150 mg PO DAILY 07/11/22 07/22/23 capsule,extended release 24 hr cetirizine 10 mg tablet 10 mg PO DAILY 07/22/23 07/22/23 ergocalciferol (vitamin D2) 1,250 1,250 mcg PO QWEEK 07/22/23 07/22/23 mcg (50,000 unit) capsule gabapentin 100 mg capsule 100 mg PO TID 07/22/23 07/22/23 hydroxyzine pamoate 50 mg capsule 50 mg PO BID PRN anxiety 07/22/23 07/22/23 naltrexone 50 mg tablet 50 mg PO DAILY 07/22/23 07/22/23 Previous Rx's ?Medication ?Instructions ?Recorded metoprolol succinate 25 mg 25 mg PO DAILY 90 days #90 tabs 06/11/20 tablet,extended release 24 hr ondansetron 4 mg disintegrating 4 mg PO Q8H PRN nausea and 06/19/23 tablet vomiting #30 tabs folic acid 1 mg tablet 1 mg PO DAILY #30 tabs 07/04/23 thiamine mononitrate (vit B1) 100 100 mg PO DAILY #30 tabs 07/04/23 mg tablet lorazepam 2 mg tablet (Ativan) 2 mg PO Q4-6H PRN anxiety #12 tabs 07/26/23 lansoprazole 30 mg capsule,delayed 30 mg PO DAILY #30 caps 10/30/23 release Allergies Allergy/AdvReac Type Severity Reaction Status Date / Time No Known Allergies Allergy Verified 12/18/23 17:02 [No Known Allergies*] Review of Systems 2 Review of Systems: Yes all other systems are reviewed and are negative [facility] Past Medical History Medical History Alcohol use disorder Multinodular thyroid Anxiety CHF (congestive heart failure) ETOH abuse Surgical History History of esophagogastroduodenoscopy (EGD) Hx of colonoscopy Hx of hysterectomy Family History Family History Mother Cancer Father No problems noted. Social History Social History Household Members: Other Household Members Other:: roommate Housing: House Do you presently have visiting nurse or other home services: No Alcohol intake: current Alcohol intake frequency: 3 or more drinks per day Alcohol type: wine Patient Tobacco Use Status: Never used Tobacco Smoked in Last 30 Days: No Second Hand Smoke Exposure: Yes Use of substances other than those prescribed or required for medical reasons: No Substance Use Type: Crack/Cocaine Advance Directives: Yes Advance Directives on File: Yes Advance Directives Date on File: 07/22/23 service: No Current occupational status: disabled Physical Exam ED Vital Signs: Vital Signs - 24 hr 12/18/23 16:59 12/18/23 18:57 12/18/23 21:38 Temperature 98.5 F 98.6 F 99.2 F Pulse Rate 104 H 97 101 H Respiratory Rate 12 17 17 Blood Pressure 137/81 145/82 H 131/73 Pulse Oximetry 99 100 100 Oxygen Delivery Method Room Air Room Air Room Air 12/18/23 23:00 Temperature 99.0 F Pulse Rate 90 Respiratory Rate 16 Blood Pressure 120/92 H Pulse Oximetry 100 Oxygen Delivery Method Room Air BMI result Body Mass Index 21.8 Const Other: The patient is a chronically ill-appearing 63-year-old. She is awake and alert. She does not appear in obvious distress. HENMT Other: Face is symmetrical, mucous membranes moist Eyes Other: Pupils are round equal, conjunctivae clear Neck Other: No JVD Resp Effort & Inspection: normal respiratory effort Auscultation: clear to auscultation bilaterally Cardio Rate: regular rate Rhythm: regular rhythm Heart sounds: S1 normal heart sound present and S2 normal heart sound present GI Other: The abdomen is mildly protuberant. It is not markedly tender. Rectal exam showed normal rectal tone, no fecal impaction, normal colored brown stool. Skin Other: Skin is pale and dry Neuro Other: The patient is awake and alert, mental status is intact, cranial nerves are grossly normal, moves all extremities symmetrically. Grossly neurologically intact. Extrem Other: No peripheral edema Medications Administered Discontinued Medications Generic Name Dose Route Start Last Admin Trade Name Oliver PRN Reason Stop Dose Admin Iohexol 100 ml 12/18/23 19:18 12/18/23 19:18 Iohexol 350 Mg/Ml 100 Ml Infus..Btl IV 12/18/23 19:19 85 ml ONCE ONE Administration Polyethylene Glycol 17 gm 12/18/23 21:54 12/18/23 22:12 Polyethylene Glycol 3350 17 Gm Powd.Pack PO 12/18/23 21:55 17 gm ONCE ONE Administration Sodium Biphosphate/Sodium Phosphate 133 ml 12/18/23 17:14 12/18/23 17:48 Sodium Phosphate,[place]-Dibasic 133 Ml Enema AR 12/18/23 17:15 133 ml ONCE ONE Administration Sodium Biphosphate/Sodium Phosphate 133 ml 12/18/23 21:54 12/18/23 22:10 Sodium Phosphate,[place]-Dibasic 133 Ml Enema AR 12/18/23 21:55 133 ml ONCE ONE Administration Medical Decision Making Medical Decision Making [facility] Narrative: The patient is a 63-year-old woman with a history of alcohol use disorder. She says she drinks a bottle of wine a day. Complaint today is that she has not had a bowel movement in 2 weeks. She has not on opioids. She has not been having fevers. She does not appear obviously uncomfortable. On rectal exam there was no fecal impaction. Stool was brown and normal in color. The patient was given a Fleet enema initially with a small amount of stool output. She complained of some increasing abdominal discomfort and we obtained a CT scan of the abdomen and pelvis. CT scan shows cholelithiasis without evidence of acute cholecystitis. They also describe ?subtle colonic wall thickening and hyperemia with areas of liquid stool in the colon raising the possibility of a mild colitis. ? 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 There is hepatic steatosis. Given the absence of any diarrhea I think the patient does not have colitis. The liquid stool in the colon is probably related to the enema the patient had received prior to the CT scan. The patient's labs were significant for LFT abnormalities which are largely similar to previous LFT abnormalities she has had in the past and which I suspect are related to her alcohol use. Ultimately the patient was given a 2nd enema and passed some more stool. I feel she likely can be discharged. I am not finding any definite acute significant intra-abdominal process. She will be discharged with instructions to use MiraLax and follow up with the regular doctor. Lab Data 12/18/23 17:45 12/18/23 17:45 Labs: Lab Results 12/18/23 12/18/23 Range/Units 17:45 20:08 WBC 5.9 (4.8-10.8) X10*3/uL RBC 3.94 L (4.20-5.50) X10*6/uL Hgb 14.4 (12.0-16.0) g/dl Hct 40.6 (37.0-47.0) % MCV 103.0 H (80.0-98.0) fL MCH 36.5 H (27.0-33.0) pg MCHC 35.5 H (31.0-35.0) g/dl RDW 14.7 (11.0-16.0) % Plt Count 219 (160-400) X10*3/uL MPV 9.7 (9.4-12.3) fL Immature Gran % (Auto) 0.2 (0.0-0.4) % Neut % (Auto) 69.4 (45-73) % Lymph % (Auto) 21.9 (20-40) % [place] % (Auto) 7.4 (2-11) % Eos % (Auto) 0.2 (0-4) % Baso % (Auto) 0.9 (0-2) % Lymph # (Auto) 1.3 (1.2-4.9) X10*3/uL [place] # (Auto) 0.4 (0.1-1.2) X10*3/uL Eos # (Auto) 0.0 (0.0-0.4) X10*3/uL Baso # (Auto) 0.1 (0.0-0.2) X10*3/uL Abs Immat Gran (auto) 0.01 (0.00-0.03) X10*3/uL Absolute Neuts (auto) 4.1 (2.0-8.3) x10*3/uL Absolute Nucleated RBC 0.000 (0.0-0.012) X10*3/uL Nucleated RBC % (auto) 0.0 (0.0-0.2) /100WBC Sodium 139 (135-145) mmol/L Potassium 3.7 (3.3-5.1) mmol/L Chloride 95 L (96-108) mmol/L Carbon Dioxide 27 (22-29) mmol/L Anion Gap 21 H (12-20) BUN 9 (9-16) mg/dL Creatinine 0.69 (0.5-1.4) mg/dL Estim Creat Clear Calc 68.1 Estimated GFR > 60 Random Glucose 114 (60-115) mg/dL Calcium 10.2 (8.4-10.2) mg/dL Magnesium 1.5 L (1.6-2.6) mg/dL Total Bilirubin 3.0 H (0.0-1.0) mg/dL Direct Bilirubin 1.8 H (0.0-0.5) mg/dL AST 143 H (5-31) U/L ALT 58 H (0-31) U/L Alkaline Phosphatase 130 H (39-117) U/L C-Reactive Protein 0.51 H (< or = 0.50) mg/dL Total Protein 8.0 (6.5-8.0) g/dL Albumin 4.3 (3.5-5.0) g/dL Lipase 20 (8-78) U/L Urine Color Dark Yellow Urine Appearance Clear Urine pH 6.5 (5.0-9.0) Ur Specific [place] >= 1.030 H (1.005-1.025) Urine Protein 30 (1+) H (Neg-Trace) mg/dL Urine Glucose (UA) Negative (Negative) mg/dL Urine Ketones 40 (Negative) mg/dL Urine Blood Negative (Negative) Urine Nitrite Negative (Negative) Ur Leukocyte Esterase Negative (Negative) Urine RBC 0-2 (0-2) /HPF Urine WBC 0-5 (0-5) /HPF Ur Squamous Epith Cells 0-2 (0-2) /HPF Urine Bacteria None Seen (None Seen) Hyaline Casts 0-2 (0-2) /LPF Ethyl Alcohol < 10 mg/dL Discharge Plan Discharge Clinical Impression: Constipation Patient Disposition: Home, Self-Care Instructions: Constipation (ED) Additional Instructions: Please take MiraLax or a similar generic brand daily. This is 17 grams (1 capsule) mixed in a large glass of water daily. I would recommend taking this until you feel you have had a series of good bowel movements. Please do your best to moderate alcohol use. Please follow-up soon with your regular doctor. Return to the emergency room if you feel significantly worse. Prescriptions: No Action metoprolol succinate 25 mg tablet extended release 24 hr 25 mg PO DAILY 90 Days Qty: 90 4RF lansoprazole 30 mg capsule,delayed release(DR/EC) 30 mg PO DAILY Qty: 30 3RF thiamine mononitrate (vit B1) 100 mg Tablet 100 mg PO DAILY Qty: 30 0RF folic acid 1 mg Tablet 1 mg PO DAILY Qty: 30 0RF cetirizine 10 mg tablet 10 mg PO DAILY gabapentin 100 mg capsule 100 mg PO TID ergocalciferol (vitamin D2) 1,250 mcg (50,000 unit) capsule 1,250 mcg PO QWEEK naltrexone 50 mg tablet 50 mg PO DAILY Rx Instructions: Take one half of a tablet for three days then increase to one tab. hydroxyzine pamoate 50 mg capsule 50 mg PO BID PRN (Reason: anxiety) lorazepam [Ativan] 2 mg tablet 2 mg PO Q4-6H PRN (Reason: anxiety) Qty: 12 0RF venlafaxine 150 mg capsule,extended release 24hr 150 mg PO DAILY ondansetron 4 mg tablet,disintegrating 4 mg PO Q8H PRN (Reason: nausea and vomiting) Qty: 30 0RF Referrals: Le Haddad DO [Primary Care Provider] - (Constipation, chronic abnormal LFTs,) Interventions: ED Discharge Assessment Last Done: 12/18/23 23:00 Discharge Date/Time: 12/18/23 23:07 Print Language: Serbian
[2023-12-18] MEDS: Sodium Phosphate,Mono-Dibasic 133 ML ENEMA PR ×2 (17:48→22:10)
[2023-12-18 17:49] LABS: MANUAL DIFF FLAG NO
[2023-12-18 17:50] LABS: Basophils Absolute Auto 0.1 X10*3/uL (0.0-0.2); Basophils Percent Auto 0.9 % (0-2); Eosinophils Percent Auto 0.2 % (0-4); Hematocrit 40.6 % (37.0-47.0); Hemoglobin 14.4 g/dl (12.0-16.0); Imm Gran Abs Auto 0.01 X10*3/uL (0.00-0.03); Imm Gran Pct Auto 0.2 % (0.0-0.4); Lymphocytes Absolute Auto 1.3 X10*3/uL (1.2-4.9); Lymphocytes Percent Auto 21.9 % (20-40); Mean Corpuscular HGB Conc 35.5 g/dl (31.0-35.0); Mean Corpuscular Hemoglobin 36.5 pg (27.0-33.0); Mean Platelet Volume 9.7 fL (9.4-12.3); Monocytes Absolute Auto 0.4 X10*3/uL (0.1-1.2); Monocytes Percent Auto 7.4 % (2-11); Neutrophils Absolute Auto 4.1 x10*3/uL (2.0-8.3); Neutrophils Percent Auto 69.4 % (45-73); Platelet Count 219 X10*3/uL (160-400); Red Blood Count 3.94 X10*6/uL (4.20-5.50); Red Cell Distribution Width 14.7 % (11.0-16.0); White Blood Count 5.9 X10*3/uL (4.8-10.8)
[2023-12-18 18:29] LABS: Alanine Aminotransferase 58 U/L (0-31); Albumin Level 4.3 g/dL (3.5-5.0); Alkaline Phosphatase 130 U/L (39-117); Anion Gap 21 (12-20); Aspartate Amino Transferase 143 U/L (5-31); Bilirubin Direct 1.8 mg/dL (0.0-0.5); Blood Urea Nitrogen 9 mg/dL (9-16); C Reactive Protein 0.51 mg/dL (< or = 0.50); Calcium 10.2 mg/dL (8.4-10.2); Carbon Dioxide 27 mmol/L (22-29); Chloride 95 mmol/L (96-108); Creatinine Clr Calc Pharmacy 68.1; Estimated Glomerular Filt Rate > 60; Ethanol < 10 mg/dL; Glucose Random 114 mg/dL (60-115); Lipase 20 U/L (8-78); Magnesium 1.5 mg/dL (1.6-2.6); Potassium 3.7 mmol/L (3.3-5.1); Sodium 139 mmol/L (135-145)
[2023-12-18 18:57] VITALS: BP 145/82; PULSE 97; RESP 17; TEMP 37; O2SAT 100
[2023-12-18] MEDS: iohexoL 350 MG/ML 100 ML INFUS..BTL IV (19:18)
--- NOTE | 2023-12-18 19:36 | PC.NURSE ---
per , hold off on NG tube placement at this time.
[2023-12-18 20:20] LABS: Appearance Urine Clear; Color Urine Dark Yellow; Glucose Urine UA Negative (Negative); Leukocyte Esterase Urine Negative (Negative); Nitrite Urine Negative (Negative); PH 6.5 (5.0-9.0); Specific Gravity - Urine >= 1.030 (1.005-1.025); UMIC TRIGGER UACC YES; Urine Blood Negative (Negative); Urine Ketones 40 mg/dL (Negative); Urine Protein 30 (1+) mg/dL (Neg-Trace)
[2023-12-18 20:34] LABS: Bacteria Urine None Seen (None Seen); Hyaline Casts Urine 0-2 /LPF (0-2); RBC Urine 0-2 /HPF (0-2); Squamous Epithelial Cell Urine 0-2 /HPF (0-2); WBC Urine 0-5 /HPF (0-5)
[2023-12-18 21:38] VITALS: BP 131/73; PULSE 101; RESP 17; TEMP 37.3; O2SAT 100
[2023-12-18] MEDS: polyethylene glycoL 3350 17 GM POWD.PACK PO (22:12)
--- NOTE | 2023-12-18 22:54 | PC.NURSE ---
pt has small loose bowel movement s/p fleet enema and miralax
[2023-12-18 23:00] VITALS: BP 120/92; PULSE 90; RESP 16; TEMP 37.2; O2SAT 100
== END 2023-12-18 23:07 | disposition home or self-care (01) ==
PROVIDERS: Emergency Provider Emergency Medicine; PCP Family Medicine
DX: K59.00 Constipation, unspecified (principal); F10.20 Alcohol dependence, uncomplicated
CPT/HCPCS: 36415; 74177; 80048; 80076; 80307; 81001; 83690; 83735; 85025; 86140; 99284; Q9967

== ENCOUNTER 2024-01-05 05:02 | Inpatient (IN) | payer MEDICARE, SELFPAY ==
--- NOTE | ~2024-01-05 | CT_ITS ---
EXAMINATION: CT HEAD WITHOUT CONTRAST CLINICAL INFORMATION: Fall with pain. COMPARISON: June 25, 2017. TECHNIQUE: Contiguous axial imaging was performed from the skull base to vertex without intravenous administration of contrast. This CT examination was performed using dose optimization techniques as appropriate, variously including the following: *Automated exposure control *Adjustment of mA and/or kV according to patient size (this includes techniques or standardized protocols for targeted exams where dose is matched to indication/reason for exam; i.e. extremities or head) *Use of iterative reconstruction technique DLP: 574 mGy-cm FINDINGS: No intracranial hemorrhage identified. No abnormal extra-axial fluid collection. No significant mass effect or midline structure shift. The madison-white matter interface is maintained. The ventricular system appears unremarkable. There is an old lacunar infarct seen within the anterior limb of the right internal capsule. Calvarium intact. Visualized paranasal sinuses and mastoid air cells unremarkable. There is degenerative change of the temporomandibular joints bilaterally left greater than right. CT/CT head/brain wo IV con IMPRESSION: No acute intracranial pathology.
--- NOTE | ~2024-01-05 | CT_ITS ---
EXAMINATION: CT CERVICAL SPINE WITHOUT CONTRAST CLINICAL INFORMATION: Fall with pain. COMPARISON: June 25, 2017. TECHNIQUE: CT cervical spine with coronal and sagittal reconstructions. This CT examination was performed using dose optimization techniques as appropriate, variously including the following: *Automated exposure control *Adjustment of mA and/or kV according to patient size (this includes techniques or standardized protocols for targeted exams where dose is matched to indication/reason for exam; i.e. extremities or head) *Use of iterative reconstruction technique DLP: 230 mGy-cm FINDINGS: There is no abnormal prevertebral soft tissue swelling. Paraspinal muscle fat planes are maintained. No acute cervical spine fracture is noted. There is mild anterior neural foraminal narrowing seen related to spurring of the joints of Luschka C4-C7. There is anterior marginal spurring seen C4-C7. There is some mild disc space narrowing at the C5-C6 and C6-C7 levels. Calcified thyroid nodules again seen bilaterally which have been biopsied in the past on August 13, 2019. Visualized paranasal sinuses and mastoid air cells unremarkable. Degenerative change temporomandibular joints. Lung apices unremarkable. CT/CT cervical spine wo IV con IMPRESSION: Cervical spondylosis as described without acute fracture. Fleischner guidelines were followed.
--- NOTE | ~2024-01-05 | CT_ITS ---
EXAMINATION: CT CHEST, ABDOMEN AND PELVIS WITH CONTRAST. CLINICAL INFORMATION: Fall, chest and abdominal trauma. COMPARISON: CT abdomen/pelvis 12/18/2023. CT chest 01/21/2018. TECHNIQUE: Multidetector volumetric imaging was performed from the thoracic inlet through the pubic symphysis following administration of 85 mL Omnipaque 350 intravenous contrast. Sagittal and coronal reformatted images were obtained on the technologist's workstation. This CT examination was performed using dose optimization techniques as appropriate, variously including the following: *Automated exposure control *Adjustment of mA and/or kV according to patient size (this includes techniques or standardized protocols for targeted exams where dose is matched to indication/reason for exam; i.e. extremities or head) *Use of iterative reconstruction technique DLP: 191 and 428 mGy-cm FINDINGS: CHEST: Lung: No focal consolidation or significant groundglass disease. Central airways are patent. Mild biapical subpleural thickening/scarring. Mild bibasilar segmental atelectasis. Evaluation of pulmonary nodules is limited secondary to motion. No pulmonary mass. Mediastinum: Mild cardiomegaly. No pericardial effusion. Mild coronary artery calcifications. No mediastinal or hilar lymphadenopathy by size criteria. Bilateral thyroid nodules, largest in the right lobe measuring 1.5 cm with associated coarse calcifications (5:8). Pleura: No pleural effusion. No pleural mass or thickening. No pneumothorax. Chest Wall/Axilla: No lymphadenopathy by size criteria. Osseous structures: Nondisplaced fracture of the right anterolateral seventh and sixth ribs (7:350). ABDOMEN/PELVIS: Peritoneal Space: No free air or free fluid. Liver, Gallbladder, Biliary Tree: Heterogeneous low attenuating liver parenchyma. Otherwise, normal in morphology and size. Unchanged simple fluid attenuating cyst in the lateral left hepatic lobe measuring 1.2 cm (14:135). No discrete new focal liver lesion, although evaluation is limited due to background of heterogeneity. Distended gallbladder with layering stones. No evidence of gallbladder wall thickening or significant pericholecystic inflammatory changes to suspect acute cholecystitis. No biliary ductal dilatation. Pancreas: Unremarkable. Spleen: Unchanged small benign-appearing low-density observation the posterior spleen (13:29) most likely representing a cyst or hemangioma. Normal size. Adrenal Glands: Unremarkable. Kidneys and Ureters: Patchy nephrograms of the right greater than left kidneys, more noticeable in the upper right kidney (coronal image 44 series 16). No hydronephrosis. No significant perinephric fat stranding. Bladder: Unremarkable. Gastrointestinal Tract: Small hiatal hernia. Equivocal gastric wall thickening, suboptimally assessed due to under distention. Fluid/liquid distention of scattered loops of small and large bowel with mild mucosal hyperemia in the cecum/ascending colon. Colonic diverticulosis without significant pericolonic inflammatory changes. No bowel obstruction. Abdominal Wall: No significant hernia is appreciated. Lymphovascular Structures: Stable periportal lymphadenopathy. Unchanged mildly prominent lower periesophageal lymph nodes Moderate atherosclerotic disease. 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 Pelvic Viscera: Hysterectomy. Osseous Structures: No acute or aggressive osseous findings. Degenerative changes of the spine. CT/CT abdomen pelvis w IV con IMPRESSION: 1. Suspect nondisplaced fractures of the right anterolateral sixth and seventh ribs. No additional acute traumatic sequela. 2. Patchy nephrograms of the right greater than left kidneys, concerning for acute pyelonephritis. Correlate clinically. 3. Fluid/liquid distention of scattered loops of small and large bowel with mild mucosal hyperemia in the cecum/ascending colon. Correlate clinically for enterocolitis and diarrhea. 4. Small hiatal hernia. Equivocal gastric wall thickening, suboptimally assessed due to under distention. Correlate clinically for gastritis. 5. Cholelithiasis but no evidence of acute cholecystitis. 6. Hepatic steatosis. Heterogeneity of the liver background limits assessment of focal lesions. Consider further evaluation with outpatient abdominal MRI with and without IV contrast as clinically warranted. 7. Stable periportal lymphadenopathy and mildly prominent lower periesophageal lymph nodes. 8. 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 9. Bilateral thyroid nodules, largest in the right lobe measuring 1.5 cm with associated coarse calcifications. Recommend further evaluation with a thyroid ultrasound.
--- NOTE | 2024-01-05 05:39 | ECG_ITS ---
Test Reason : FALL Blood Pressure : / mmHG Vent. Rate : 118 BPM Atrial Rate : 118 BPM P-R Int : 142 ms QRS Dur : 064 ms QT Int : 290 ms P-R-T Axes : 011 005 059 degrees QTc Int : 406 ms Sinus tachycardia Low voltage QRS Borderline ECG When compared with ECG of 27-APR-2023 12:22, No significant changes seen Referred By: Generic ED Physician Electronically Signed By:REMA CHIRINOS
[2024-01-05 05:40] VITALS: BP 115/59; PULSE 122; O2SAT 98; BMI 20.6
--- NOTE | 2024-01-05 06:31 | PC.NURSE ---
Pt came in by EMS called in for foot pain. upon picker/puller pt was yelling, rambling and speech not understandable like gibberish. Pt was spinning and thrashing n the bed. Seizure precautions applied for safety. Pt uncooperative, combative and a safety to self and others. notified and came to bedside. Unable to obtain vitals d/t patient moving in bed and refusing to allow. Pt in bed upside down. IM Ativan, Haldol and Benadryl given as ordered. Pt changed over with security and belongings in [place]. Staff able to get labs but pt still combative and resistive to care. This RN attempted to place IV and pt unable to do so safely.
[2024-01-05 06:33] LABS: Hematocrit 32.4 % (37.0-47.0); Hemoglobin 11.9 g/dl (12.0-16.0); Mean Corpuscular HGB Conc 36.7 g/dl (31.0-35.0); Mean Corpuscular Hemoglobin 37.3 pg (27.0-33.0); Mean Corpuscular Volume 101.6 fL (80.0-98.0); Red Blood Count 3.19 X10*6/uL (4.20-5.50); Red Cell Distribution Width 14.1 % (11.0-16.0); White Blood Count 7.5 X10*3/uL (4.8-10.8)
[2024-01-05 06:41] LABS: Platelet Count 111 X10*3/uL (160-400)
[2024-01-05 06:44] LABS: INTERNATIONAL NORM RATIO 1.4 (0.9-1.1); Prothrombin Time 17.5 SEC (11.1-13.3)
[2024-01-05 07:02] LABS: Alanine Aminotransferase 34 U/L (0-31); Albumin Level 3.2 g/dL (3.5-5.0); Alkaline Phosphatase 91 U/L (39-117); Anion Gap 19 (12-20); Aspartate Amino Transferase 81 U/L (5-31); Bilirubin Total 2.9 mg/dL (0.0-1.0); Blood Urea Nitrogen 11 mg/dL (9-16); Calcium 9.2 mg/dL (8.4-10.2); Carbon Dioxide 18 mmol/L (22-29); Chloride 101 mmol/L (96-108); Estimated Glomerular Filt Rate > 60; Ethanol < 10 mg/dL; Glucose Random 134 mg/dL (60-115); Potassium 3.6 mmol/L (3.3-5.1); Sodium 134 mmol/L (135-145); Total Protein 6.6 g/dL (6.5-8.0)
[2024-01-05 07:05] LABS: Magnesium 1.2 mg/dL (1.6-2.6)
[2024-01-05 07:09] LABS: Troponin-I High Sensitivity < 2.7 ng/L (<3.5-17.0)
--- NOTE | 2024-01-05 07:58 | ED.FALL ---
HPI - Fall General Chief Complaint: Fall Stated Complaint: fall Time Seen by Provider: 01/05/24 06:48 Source: patient Mode of arrival: ambulatory Limitations: no limitations History of Present Illness HPI Narrative: 63-year-old female history of alcohol use disorder with alcohol withdrawal, CHF, anxiety, neuropathy presenting to the emergency department complaints of weakness, fatigue, malaise, inability to ambulate, fall. Patient reports that this morning she was lying in bed she rolled over to get a water bottle and ended up falling onto her side, she has been having pain to her side ever since, no head strike or loss of consciousness however she states it all happened so quickly that she has not sure exactly how it all happened. She states she lives at home with her boyfriend and has minimal support. Not eating and drinking well. Reports nausea, vomiting and abdominal pain for months supposed to see GI today she tells me. She reports chronic weakness, that has been worsening. She reports she has not been able to walk for 2-3 months. She has a walker at home however she does not use it. She denies fevers, chills, diarrhea, headache, vision changes, dizziness, , cp, sob NIH stroke scale 0, global weakness on exam. Related Data Home Medications ?Medication ?Instructions ?Recorded ?Confirmed venlafaxine 150 mg 150 mg PO DAILY 07/11/22 07/22/23 capsule,extended release 24 hr cetirizine 10 mg tablet 10 mg PO DAILY 07/22/23 07/22/23 ergocalciferol (vitamin D2) 1,250 1,250 mcg PO QWEEK 07/22/23 07/22/23 mcg (50,000 unit) capsule gabapentin 100 mg capsule 100 mg PO TID 07/22/23 07/22/23 hydroxyzine pamoate 50 mg capsule 50 mg PO BID PRN anxiety 07/22/23 07/22/23 naltrexone 50 mg tablet 50 mg PO DAILY 07/22/23 07/22/23 Previous Rx's ?Medication ?Instructions ?Recorded metoprolol succinate 25 mg 25 mg PO DAILY 90 days #90 tabs 06/11/20 tablet,extended release 24 hr ondansetron 4 mg disintegrating 4 mg PO Q8H PRN nausea and 06/19/23 tablet vomiting #30 tabs folic acid 1 mg tablet 1 mg PO DAILY #30 tabs 07/04/23 thiamine mononitrate (vit B1) 100 100 mg PO DAILY #30 tabs 07/04/23 mg tablet lorazepam 2 mg tablet (Ativan) 2 mg PO Q4-6H PRN anxiety #12 tabs 07/26/23 lansoprazole 30 mg capsule,delayed 30 mg PO DAILY #30 caps 10/30/23 release Allergies Allergy/AdvReac Type Severity Reaction Status Date / Time No Known Allergies Allergy Verified 01/05/24 05:43 [No Known Allergies*] Review of Systems Review of Systems: Yes all other systems are reviewed and are negative [facility] Past Medical History Attestation statement: The following information was validated with the patient. Source: old records reviewed and nursing notes reviewed Medical History Alcohol use disorder Multinodular thyroid Anxiety CHF (congestive heart failure) ETOH abuse Surgical History History of esophagogastroduodenoscopy (EGD) Hx of colonoscopy Hx of hysterectomy Family History Family History Mother Cancer Father No problems noted. Social History Social History Household Members: Other Household Members Other:: roommate Housing: House Do you presently have visiting nurse or other home services: No Alcohol intake: current Alcohol intake frequency: 3 or more drinks per day Alcohol type: wine Patient Tobacco Use Status: Never used Tobacco Smoked in Last 30 Days: No Second Hand Smoke Exposure: Yes Use of substances other than those prescribed or required for medical reasons: No Substance Use Type: Crack/Cocaine Advance Directives: Yes Advance Directives on File: Yes Advance Directives Date on File: 07/22/23 Do you have a plan to hurt others: No Plan Patient : No service: No Current occupational status: disabled Physical Exam Vital Signs: Vital Signs: Last Vital Signs Temp 100.3 F 01/05/24 10:53 Pulse 109 H 01/05/24 10:53 Resp 16 01/05/24 10:53 BP 120/65 01/05/24 10:53 Pulse Ox 98 01/05/24 10:53 O2 Del Method Room Air 01/05/24 08:37 BMI result Body Mass Index 20.6 vss Appearance: Alert.? Oriented X3.? No acute distress.?Unkempt Head: Normocephalic, atraumatic, no step-offs or deformities Eyes: Pupils equal, round and reactive to light.? CVS: Normal heart rate and rhythm.? Pulses normal. + slight discomfort to R anterior chest wall ? Respiratory: No respiratory distress.? Breath sounds normal.? Abdomen: Soft and diffuse abd discomfort .? Skin: Skin warm and dry.? Normal skin color.? Normal skin turgor.? Extremities: No lower extremity edema.? No calf ttp. Global weakness Back: No midline tenderness, no C-spine tenderness, full range of motion, no CVA tenderness bilaterally Neuro: Oriented X 3.? No motor deficit.? No sensory deficit. CN 2-12 intact Course Reevaluation(s) Reevaluation #1: CBC with slight normocytic anemia, appears to be around her baseline. Chemistry with low magnesium 1.2 IV Mag ordered. Total bilirubin 2.9 chronically elevated. On exam she is diffuse abdominal discomfort.-troponin negative. Elevated transaminases in a nearly 2-1 ratio likely secondary to chronic alcohol abuse. Alcohol negative. Patient's CT scan of chest and abdomen with suspected nondisplaced rib fractures of the right anterior lateral 6th and 7th ribs, patchy nephrograms on the right greater than left kidney concerning for pyelo it is possible that this is why patient is having abdominal pain but she does not have a white count. Will give antibiotics at this time and give some fluids. Patient has been complainng of nausea, vomiting and abdominal pain however does not state she is diarrhea there are fluid/liquid distention of the scattered loops of small and large bowel. Small hiatal hernia. Cholelithiasis but no acute cholecystitis. Hepatic steatosis noted periportal lymphadenopathy. Chronic stenosis of celiac axis, bilateral thyroid nodules. Patient has been made aware of these findings. Urine still pending. I do suspect patient likely has a UTI or pyelonephritis. Incentive spirometer ordered for rib fractures. Plan is likely hospital admission Time: 11:11 Medications Administered Discontinued Medications Generic Name Dose Route Start Last Admin Trade Name Freq PRN Reason Stop Dose Admin Magnesium Sulfate 2 gm in 50 mls @ 25 mls/hr 01/05/24 07:34 01/05/24 10:59 Magnesium Sulfate/H2o IV 01/05/24 09:33 Infused ONCE ONE Infusion Iohexol 85 ml 01/05/24 09:06 01/05/24 09:07 Iohexol 350 Mg/Ml 100 Ml Infus..Btl IV 01/05/24 09:07 85 ml ONCE ONE Administration Medical Decision Making Medical Decision Making [facility] Narrative: 08 63 year old female presents with fall out of bed, unclear story, reports her whole body hurts, reports she has not been walking for months due to increased weakness and neuropathy. Lives at home with boyfriend. Lacks energy every day. Drinks 3 glasses of wine a day last drink was yesterday at 15:00. Physical exam patient is unkempt, global weakness noted. No focal neuro deficits. Right anterior chest wall with slight discomfort on palpation. Slight abdominal discomfort throughout. History and physical exam concerning for failure to thrive will rule out metabolic derangements, cystitis, UTI. Due to nausea and vomiting will rule out intra-abdominal etiologies unlikely acute abdomen however other differentials include viral illness. Will rule out truama to head, neck, chest, abd pelvis. Plan labs, imaging, urine Differential Diagnosis Differential Diagnoses: The differential diagnosis associated with the presentation includes History and physical exam concerning for failure to thrive will rule out metabolic derangements, cystitis, UTI. Due to nausea and vomiting will rule out intra-abdominal etiologies unlikely acute abdomen however other differentials include viral illness. Will rule out truama to head, neck, chest, abd pelvis. Admission/Observation Consideration of admission/observation: Escalation of care including admission/observation considered Possible Lab Data 01/05/24 06:27 01/05/24 06:27 Labs: Lab Results 01/05/24 Range/Units 06:27 WBC 7.5 (4.8-10.8) X10*3/uL RBC 3.19 L (4.20-5.50) X10*6/uL Hgb 11.9 L (12.0-16.0) g/dl Hct 32.4 L D (37.0-47.0) % MCV 101.6 H (80.0-98.0) fL MCH 37.3 H (27.0-33.0) pg MCHC 36.7 H (31.0-35.0) g/dl RDW 14.1 (11.0-16.0) % Plt Count 111 L D (160-400) X10*3/uL MPV 10.0 (9.4-12.3) fL Absolute Nucleated RBC 0.000 (0.0-0.012) X10*3/uL Nucleated RBC % (auto) 0.0 (0.0-0.2) /100WBC PT 17.5 H D (11.1-13.3) SEC INR 1.4 H (0.9-1.1) Sodium 134 L (135-145) mmol/L Potassium 3.6 (3.3-5.1) mmol/L Chloride 101 (96-108) mmol/L Carbon Dioxide 18 L (22-29) mmol/L Anion Gap 19 (12-20) BUN 11 (9-16) mg/dL Creatinine 0.61 (0.5-1.4) mg/dL Estim Creat Clear Calc 80.0 Estimated GFR > 60 Random Glucose 134 H (60-115) mg/dL Calcium 9.2 D (8.4-10.2) mg/dL Magnesium 1.2 L* (1.6-2.6) mg/dL Total Bilirubin 2.9 H (0.0-1.0) mg/dL AST 81 H (5-31) U/L ALT 34 H (0-31) U/L Alkaline Phosphatase 91 (39-117) U/L Troponin I High Sens < 2.7 (<3.5-17.0) ng/L Total Protein 6.6 (6.5-8.0) g/dL Albumin 3.2 L (3.5-5.0) g/dL Ethyl Alcohol < 10 mg/dL Critical Care Time Critical Care Time Critical Care Time: Yes Total Critical Care Time: 45 Attestation: Insert critical care Discharge Plan Discharge Clinical Impression: UTI (urinary tract infection), Fall, Fracture of rib, Physical deconditioning Patient Disposition: Admitted As Inpatient Prescriptions: No Action metoprolol succinate 25 mg tablet extended release 24 hr 25 mg PO DAILY 90 Days Qty: 90 4RF lansoprazole 30 mg capsule,delayed release(DR/EC) 30 mg PO DAILY Qty: 30 3RF thiamine mononitrate (vit B1) 100 mg Tablet 100 mg PO DAILY Qty: 30 0RF folic acid 1 mg Tablet 1 mg PO DAILY Qty: 30 0RF cetirizine 10 mg tablet 10 mg PO DAILY gabapentin 100 mg capsule 100 mg PO TID ergocalciferol (vitamin D2) 1,250 mcg (50,000 unit) capsule 1,250 mcg PO QWEEK naltrexone 50 mg tablet 50 mg PO DAILY Rx Instructions: Take one half of a tablet for three days then increase to one tab. hydroxyzine pamoate 50 mg capsule 50 mg PO BID PRN (Reason: anxiety) lorazepam [Ativan] 2 mg tablet 2 mg PO Q4-6H PRN (Reason: anxiety) Qty: 12 0RF venlafaxine 150 mg capsule,extended release 24hr 150 mg PO DAILY ondansetron 4 mg tablet,disintegrating 4 mg PO Q8H PRN (Reason: nausea and vomiting) Qty: 30 0RF Print Language: Citizen [place]
[2024-01-05 08:37] VITALS: BP 112/60; PULSE 109; RESP 16; TEMP 37.6; O2SAT 96
[2024-01-05] MEDS: Magnesium Sulfate/H2O 2 GM/50 ML PIGGYBACK IV ×2 (08:44→14:59)
--- NOTE | 2024-01-05 08:47 | PC.NURSE ---
this RN resumed care of pt at this time. a&ox4. vss and up to date aside from being sinus tachy on the cardiac monitor technician. HR between 110-120bpm. pt denies chest pain/palpitations. pt presents to ED d/t fall from bed while reaching for water. +headstrike, -loc, -thinners. pt verbalizes being a daily drinker. last drink yesterday. drinks approx. 1 bottle of wine per day. CIWA = 4. medication administered per provider order. no sob/wob noted. respirations even and unlabored. plan of care ongoing. call kramer placed within reach.
--- NOTE | 2024-01-05 09:06 | PC.NURSE ---
pt to CT at this time.
[2024-01-05] MEDS: iohexoL 350 MG/ML 100 ML INFUS..BTL 85 ML IV (09:07)
[2024-01-05 10:53] VITALS: BP 120/65; PULSE 109; RESP 16; TEMP 37.9; O2SAT 98
--- NOTE | 2024-01-05 10:57 | PC.NURSE ---
vss and up to date aside from sinus tachy on the clinical research monitor. pt used bedside commode. 2:1 assist needed to get out of bed. UA obtained/sent to lab. pt waiting for scan results at this time. plan of care ongoing. call kramer placed within reach.
[2024-01-05 11:05] LABS: Appearance Urine Clear; Color Urine Dark Yellow; Glucose Urine UA Negative (Negative); Leukocyte Esterase Urine Moderate (2+) (Negative); Nitrite Urine Positive (Negative); Specific Gravity - Urine >= 1.030 (1.005-1.025); UMIC TRIGGER UACC YES; Urine Blood Trace (Negative); Urine Ketones Trace mg/dL (Negative); Urine Protein 30 (1+) mg/dL (Neg-Trace)
[2024-01-05 11:28] LABS: Bacteria Urine 4+ (None Seen); Hyaline Casts Urine 0-2 /LPF (0-2); Squamous Epithelial Cell Urine 0-2 /HPF (0-2); UACC Culture Trigger YES; WBC Clumps Urine Present; WBC Urine >50 /HPF (0-5)
[2024-01-05 11:35] LABS: Lactic Acid 2.4 mmol/L (0.5-2.0)
--- NOTE | 2024-01-05 11:36 | PC.NURSE ---
critical lab value received at this time. lactic level of 2.4 - LOUISE reed notified/aware. tech currently obtaining 2nd set of cultures. plan of care ongoing.
[2024-01-05] MEDS: Acetaminophen 325 MG TABLET 650 MG PO ×2 (11:47→20:58)
[2024-01-05] MEDS: cefTRIAXone sodium 1 GM in 0.9 % Sodium Chloride 50 ML IV (11:47)
[2024-01-05] MEDS: 0.9 % Sodium Chloride 1,632.93 ML 1632.93 ML IV (11:48)
--- NOTE | 2024-01-05 11:54 | PC.NURSE ---
IVF/abx administered per provider order.
--- NOTE | 2024-01-05 13:19 | P.HPHOSP_ITS ---
History of Present Illness Date of Service: 01/05/24 Attending physician on admission: Doreen Luke Chief Complaint: Weakness, fall at home Pt is a 63-year-old female with a PMH significant for?HTN, GERD, HFpEF, alcohol use disorder with hx of withdrawal, anxiety, and depression who presents to the ED after fall out of bed this morning when she reached for a water bottle on the nightstand. Is not quite sure exactly what happened to cause her to fall, but pt fell on the floor and hit her right side and head on the waste basket. Pt lives with a room mate who called EMS. Pt states she has been having progressively worsening generalized weakness and difficulty walking since May of last year. Does not use assistive device for ambulation, but instead holds onto furniture. States she can now barely walk on her own and spends much of her time in bed. Last week had two falls in the bathroom. Also reports decreased appetite and reduced p.o. intake of both fluids and solids. Has a long history of heavy alcohol use, used to drink vodka but now drinks around half a bottle of wine daily. Some nausea while in the ED but no vomiting. Complains of right-sided chest wall pain. Denies fever, chills, abdominal pain. No diarrhea. No increase in swelling in lower extremities or abdomen. Reports intermittent chest tightness/pressure that has been ongoing for a long time . No SOB or difficulty breathing. Denies dysuria or polyuria. No flank pain. In the ED pt was afebrile but tachycardic up to 109, vitals otherwise WNL. Labs were significant for lactic acid 2.4, magnesium 1.2, bilirubin 2.9, AST 81, ALT 34, and albumin 3.2. UA positive for UTI. CT of head found no acute intracranial pathology. 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 CT of chest and abdomen and pelvis with multiple findings, including nondisplaced fractures of right 6th and 7th ribs; patchy nephrograms of right greater than left kidneys concerning for acute pyelonephritis; fluid/liquid distention of scattered loops of small and large bowel suggestive of possible enterocolitis; and bilateral thyroid nodules. EKG demonstrated sinus tachycardia of 118 with low voltage QRS but no evidence of significant ST elevations or depressions. Pt was treated with acetaminophen, IVF Mag sulfate and ceftriaxone. Pt will be admitted to the hospital for treatment further evaluation of acute pyelonephritis. Review of Systems 2 Review of Systems: Fall out of bed Right-sided rib pain Generalized weakness Nausea, no vomiting Chronic intermittent chest tightness Denies fever, chills, diarrhea, abd pain PMFSH Medical History Alcohol use disorder Multinodular thyroid Anxiety CHF (congestive heart failure) ETOH abuse Family History Mother Cancer Father No problems noted. Surgical History History of esophagogastroduodenoscopy (EGD) Hx of colonoscopy Hx of hysterectomy Social History Household Members: Other Household Members Other:: roommate Housing: House Do you presently have visiting nurse or other home services: No Alcohol intake: current Alcohol intake frequency: 3 or more drinks per day Alcohol type: wine Patient Tobacco Use Status: Never used Tobacco Smoked in Last 30 Days: No Second Hand Smoke Exposure: Yes Use of substances other than those prescribed or required for medical reasons: No Substance Use Type: Crack/Cocaine Advance Directives: Yes Advance Directives on File: Yes Advance Directives Date on File: 07/22/23 Do you have a plan to hurt others: No Plan Patient : No service: No Current occupational status: disabled Meds Allergies Allergy/AdvReac Type Severity Reaction Status Date / Time No Known Allergies Allergy Verified 01/05/24 05:43 [No Known Allergies*] Home Medications ?Medication ?Instructions ?Recorded ?Confirmed ?Last Taken ?Type venlafaxine 150 mg 150 mg PO DAILY 07/11/22 01/05/24 Unknown History capsule,extended release 24 hr cetirizine 10 mg tablet 10 mg PO DAILY 07/22/23 01/05/24 Unknown History ergocalciferol (vitamin D2) 1,250 1,250 mcg PO QWEEK 07/22/23 01/05/24 Unknown History mcg (50,000 unit) capsule gabapentin 100 mg capsule 200 mg PO Q8H 07/22/23 01/05/24 Unknown History hydroxyzine pamoate 50 mg capsule 50 mg PO BID PRN anxiety 07/22/23 01/05/24 Unknown History cyanocobalamin (vitamin B-12) 1,000 mcg PO DAILY 01/05/24 01/05/24 Unknown History 1,000 mcg tablet Physical Exam 2 Vital Signs and Narrative: Vital Signs: Last Vital Signs Temp 100.3 F 01/05/24 10:53 Pulse 109 H 01/05/24 10:53 Resp 16 01/05/24 10:53 BP 120/65 01/05/24 10:53 Pulse Ox 98 01/05/24 10:53 O2 Del Method Room Air 01/05/24 08:37 BMI result Body Mass Index 20.6 Constitutional: Alert, disshelved, in no acute distress. Mental Status: Oriented to person, place and time. Eyes: Pupils are equal, round, and reactive to light. Ear, Nose, and Throat: Oropharynx clear, mucous membranes moist. Ears and nose without deformities. Trachea midline. Respiratory: Clear to auscultation bilaterally. No wheezing, rales, or rhonchi. Cardiovascular: S1, S2 regular. No murmurs, rubs, or gallops. Gastrointestinal: Abdomen slightly firm, non-tender, mildly distended. Normal bowel sounds. Neurologic: Cranial nerves II-XII are grossly intact bilaterally. No focal neurological deficits. Moves all extremities spontaneously. Globalized weakness: 1/5 lower legs, 3/5 upper extremities. Back: Right CVA tenderness. Skin: Warm, dry. Musculoskeletal: Right-sided chest wall tenderness. Extremities: No edema. Psychiatric: Normal mood and affect. Results Labs 01/05/24 06:27 01/05/24 06:27 Labs: Laboratory Results - last 24 hr 01/05/24 01/05/24 01/05/24 06:27 10:55 11:17 MCV 101.6 H MCH 37.3 H MCHC 36.7 H RDW 14.1 Plt Count 111 L D MPV 10.0 Absolute Nucleated RBC 0.000 Nucleated RBC % (auto) 0.0 PT 17.5 H D INR 1.4 H Anion Gap 19 Estim Creat Clear Calc 80.0 Estimated GFR > 60 Random Glucose 134 H Lactic Acid 2.4 H* Calcium 9.2 D Magnesium 1.2 L* Total Bilirubin 2.9 H AST 81 H ALT 34 H Alkaline Phosphatase 91 Total Creatine Kinase 38 Troponin I High Sens < 2.7 Total Protein 6.6 Albumin 3.2 L Urine Color Dark Yellow Urine Appearance Clear Urine pH 6.0 Ur Specific [place] >= 1.030 H Urine Protein 30 (1+) H Urine Glucose (UA) Negative Urine Ketones Trace Urine Blood Trace H Urine Nitrite Positive H Ur Leukocyte Esterase Moderate (2+) H Urine RBC 3-5 H Urine WBC >50 H Urine WBC Clumps Present Ur Squamous Epith Cells 0-2 Urine Bacteria 4+ Hyaline Casts 0-2 Ethyl Alcohol < 10 Imaging Radiologist's Impressions: Impressions Cervical Spine CT 01/05/24 06:15 IMPRESSION: Cervical spondylosis as described without acute fracture. Fleischner guidelines were followed. Head CT 01/05/24 06:15 IMPRESSION: No acute intracranial pathology. Abdomen/Pelvis CT 01/05/24 09:37 IMPRESSION: 1. Suspect nondisplaced fractures of the right anterolateral sixth and seventh ribs. No additional acute traumatic sequela. 2. Patchy nephrograms of the right greater than left kidneys, concerning for acute pyelonephritis. Correlate clinically. 3. Fluid/liquid distention of scattered loops of small and large bowel with mild mucosal hyperemia in the cecum/ascending colon. Correlate clinically for enterocolitis and diarrhea. 4. Small hiatal hernia. Equivocal gastric wall thickening, suboptimally assessed due to under distention. Correlate clinically for gastritis. 5. Cholelithiasis but no evidence of acute cholecystitis. 6. Hepatic steatosis. Heterogeneity of the liver background limits assessment of focal lesions. Consider further evaluation with outpatient abdominal MRI with and without IV contrast as clinically warranted. 7. Stable periportal lymphadenopathy and mildly prominent lower periesophageal lymph nodes. 8. 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 9. Bilateral thyroid nodules, largest in the right lobe measuring 1.5 cm with associated coarse calcifications. Recommend further evaluation with a thyroid ultrasound. Chest CT 01/05/24 09:37 IMPRESSION: 1. Suspect nondisplaced fractures of the right anterolateral sixth and seventh ribs. No additional acute traumatic sequela. 2. Patchy nephrograms of the right greater than left kidneys, concerning for acute pyelonephritis. Correlate clinically. 3. Fluid/liquid distention of scattered loops of small and large bowel with mild mucosal hyperemia in the cecum/ascending colon. Correlate clinically for enterocolitis and diarrhea. 4. Small hiatal hernia. Equivocal gastric wall thickening, suboptimally assessed due to under distention. Correlate clinically for gastritis. 5. Cholelithiasis but no evidence of acute cholecystitis. 6. Hepatic steatosis. Heterogeneity of the liver background limits assessment of focal lesions. Consider further evaluation with outpatient abdominal MRI with and without IV contrast as clinically warranted. 7. Stable periportal lymphadenopathy and mildly prominent lower periesophageal lymph nodes. 8. 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 9. Bilateral thyroid nodules, largest in the right lobe measuring 1.5 cm with associated coarse calcifications. Recommend further evaluation with a thyroid ultrasound. Assessment and Plan (1) Physical deconditioning: Status: Acute (2) Pyelonephritis: Status: Acute Plan Pt is a 63-year-old female with a PMH significant for?HTN, GERD, HFpEF, alcohol use disorder with hx of withdrawal, anxiety, and depression who presents to the ED after fall out of bed this morning when she reached for a water bottle on the nightstand. Pt will be admitted to the hospital for treatment further evaluation of acute pyelonephritis. Pyelonephritis UA positive, right CVA tenderness, CT concerning for pyelonephritis Patient does not meet sepsis criteria: Tachycardia, but no tachypnea, fever, or leukocytosis; lactic acid 2.4 Patient received IVF and was started on broad-spectrum antibiotics in the ED Will treat with ceftriaxone, started 01/05/[address] with nondisplaced fractures right 6th and 7th ribs Secondary to fall out bed Symptomatic treatment Incentive spirometry Hypomagnesemia Magnesium 1.2 at time presentation Patient received magnesium sulfate 2 g IV in ED Follow Mag, supplement as necessary Generalized weakness/failure to thrive PT evaluation Chronic intermittent chest pain/pressure Pt states symptoms have been occurring on and off for many years Patient has had cardiac workup in the past with cardiac catheterization showing nonobstructive CAD Question of alcoholic cardiomyopathy versus stress-induced cardiomyopathy Troponin negative Continue metoprolol Alcohol use disorder Currently drinks approximately half a bottle of wine daily Monitor CIWA GERD continue PPI Mood disorder Continue venlafaxine Full Code Attending:?Dr. Luke DVT Prophylaxis: Lovenox Pt will require a hospitalization of at least two nights for treatment of?acute pyelonephritis. Given patient's generalized weakness, deconditioning, and failure to thrive at home, patient will require hospitalization for administration of IV antibiotics and evaluation by PT and case management. Quality Stroke Does the patient have a stroke diagnosis?: No VTE Prior VTE?: No VTE Risk Level:: Medical - moderate - high VTE Device Contraindication: Treatment Not Indicated VTE Drug Contraindication: N/A - Med Ordered
[2024-01-05 13:20] LABS: Reflex Lactate? Lactic Acid Added
[2024-01-05 13:27] VITALS: BP 129/57; PULSE 107; RESP 18; TEMP 37.2; O2SAT 98
--- NOTE | 2024-01-05 13:27 | PHA.MEDREC ---
Pharmacy Consult ? Medication Reconciliation Pharmacy has completed the medication reconciliation. Tried to talk to patient. Patient said to just call [facility]. Used Claims
--- NOTE | 2024-01-05 13:54 | PC.NURSE ---
pt speaking w/ admitting provider in regards to plan of care at this time.
[2024-01-05 13:56] LABS: ~Lactic Acid-LAB USE ONLY 2.1 mmol/L (0.5-2.0)
[2024-01-05 14:22] LABS: TSH reflex Free T4 0.63 uIU/mL (0.32-4.0)
[2024-01-05 14:42] LABS: Cancel Lactic Acid Canceled
[2024-01-05] MEDS: Gabapentin 100 MG CAPSULE 200 MG PO ×2 (14:59→20:57)
[2024-01-05] MEDS: Lactated Ringers 1,000 ML 100 ML IVCONT (14:59)
[2024-01-05 15:05] VITALS: BP 92/54; PULSE 107; RESP 18; O2SAT 98
--- NOTE | 2024-01-05 15:05 | PC.NURSE ---
pt noted to be slightly hypotensive. admitting provider notified/aware. medication IVF administered per provider order. pt waiting on bed assignment at this time. plan of care ongoing. call kramer placed within reach.
--- NOTE | 2024-01-05 16:52 | MHC.EDTECH ---
Patient bedpad changed and repositioned
[2024-01-05] MEDS: Enoxaparin Sodium 40 MG/0.4 ML SYRINGE SUBCUT (18:49)
[2024-01-05] MEDS: Magnesium Oxide 400 MG TABLET PO (18:49)
--- NOTE | 2024-01-05 19:09 | PC.NURSE ---
admission worksheet complete. transport notified/aware.
[2024-01-05 19:54] VITALS: BP 98/57; PULSE 107; RESP 20; TEMP 36.7; O2SAT 98
[2024-01-05 20:20] VITALS: BMI 22.4
--- NOTE | 2024-01-05 22:59 | PC.NURSE ---
Message received from Lab with critical results of blood culture positive for GNR 2 of 2 bottles, result relayed to Dr. Montiel
[2024-01-06 04:00] VITALS: BP 96/52; PULSE 89; RESP 18; TEMP 36.2; O2SAT 95
[2024-01-06] MEDS: Omeprazole 40 MG CAPSULE.DR PO (05:44)
[2024-01-06 07:30] VITALS: BP 116/50; PULSE 94; RESP 18; TEMP 37.4; O2SAT 98
[2024-01-06] MEDS: Gabapentin 100 MG CAPSULE 200 MG PO ×2 (08:06→21:01)
[2024-01-06] MEDS: 0.9 % Sodium Chloride Flush 3 ML SYRINGE IVFLUSH ×3 (08:06→19:36)
[2024-01-06] MEDS: Cyanocobalamin (Vitamin B-12) 1,000 MCG TABLET 1000 MCG PO (08:06)
[2024-01-06] MEDS: Magnesium Oxide 400 MG TABLET PO ×2 (08:06→17:06)
[2024-01-06] MEDS: Venlafaxine HCl ER 150 MG CAP.ER.24H PO (08:06)
[2024-01-06 09:10] LABS: Anion Gap 15 (12-20); Blood Urea Nitrogen 12 mg/dL (9-16); Calcium 9.2 mg/dL (8.4-10.2); Carbon Dioxide 22 mmol/L (22-29); Chloride 105 mmol/L (96-108); Creatinine Clr Calc Pharmacy 83.1; Estimated Glomerular Filt Rate > 60; Glucose Random 116 mg/dL (60-115); Magnesium 2.2 mg/dL (1.6-2.6); Potassium 3.5 mmol/L (3.3-5.1); Sodium 138 mmol/L (135-145)
[2024-01-06] MEDS: cefTRIAXone sodium 1 GM in 0.9 % Sodium Chloride 50 ML IV (11:52)
--- NOTE | 2024-01-06 12:13 | P.PNIM_ITS ---
Subjective Subjective Date of Service: 01/06/24 Interval History: Remains somewhat confused to length of stay and date of admission. No acute issues however Review of Systems Denies chest pain Denies shortness of breath Denies nausea vomiting diarrhea Denies fever chills Physical Exam 2 Vital Signs: Vital Signs: Last Vital Signs Temp 99.4 F 01/06/24 07:30 Pulse 94 01/06/24 07:30 Resp 18 01/06/24 07:30 BP 116/50 L 01/06/24 07:30 Pulse Ox 98 01/06/24 07:30 O2 Del Method Room Air 01/06/24 07:30 BMI result Body Mass Index 22.4 Const: Other: Awake alert no acute distress Resp: Other: Clear to auscultation bilaterally no rales rhonchi or wheezes Cardio: Other: No S4; positive S1-S2; no S3 murmurs rubs or gallops GI: Other: Soft nontender nondistended normoactive bowel sounds Extrem: Other: No edema bilaterally Objective Data Active Medications Acetaminophen (Acetaminophen 325 Mg Tablet) 650 mg PO Q6H PRN PRN Reason: Pain, Mild (Pain Scale 1-3) Last Admin: 01/05/24 20:58 Dose: 650 mg Documented By: CASTILM Benzonatate (Benzonatate 100 Mg Capsule) 100 mg PO TID PRN PRN Reason: Cough Cyanocobalamin (Cyanocobalamin (Vitamin B-12) 1,000 Mcg Tablet) 1,000 mcg PO DAILY [facility] Last Admin: 01/06/24 08:06 Dose: 1,000 mcg Documented By: SERGE Docusate Sodium (Docusate Sodium 100 Mg Capsule) 100 mg PO DAILY PRN PRN Reason: Constipation Enoxaparin Sodium (Enoxaparin Sodium 40 Mg/0.4 Ml Syringe) 40 mg SUBCUT Q24H [facility] Last Admin: 01/05/24 18:49 Dose: 40 mg Documented By: CARLY Gabapentin (Gabapentin 100 Mg Capsule) 200 mg PO TID [facility] Last Admin: 01/06/24 08:06 Dose: 200 mg Documented By: SERGE Ceftriaxone Sodium 1 gm/ (Sodium Chloride) 50 mls @ 100 mls/hr IV Q24H [facility] Last Admin: 01/06/24 11:52 Dose: 100 mls/hr Documented By: SERGE Magnesium Oxide (Magnesium Oxide 400 Mg Tablet) 400 mg PO BIDPC [facility] Last Admin: 01/06/24 08:06 Dose: 400 mg Documented By: SERGE Melatonin (Melatonin 3 Mg Tablet) 6 mg PO BEDTIME PRN PRN Reason: Insomnia Omeprazole (Omeprazole 40 Mg Capsule.Dr) 40 mg PO DAILY@0630 [facility] Last Admin: 01/06/24 05:44 Dose: 40 mg Documented By: CASTILRojelio Ondansetron HCl (Ondansetron Hcl 4 Mg/2 Ml Vial) 4 mg IVPUSH Q8H PRN PRN Reason: Nausea and Vomiting Sodium Chloride (0.9 % Sodium Chloride Flush 3 Ml Syringe) 3 ml IVFLUSH QSHIFT [facility] Last Admin: 01/06/24 08:06 Dose: 3 ml Documented By: SERGE Venlafaxine HCl (Venlafaxine Hcl Er 150 Mg Cap.Er.24h) 150 mg PO DAILY [facility] Last Admin: 01/06/24 08:06 Dose: 150 mg Documented By: SERGE Labs 01/05/24 06:27 01/06/24 07:54 Labs: Laboratory Results - last 24 hr 01/05/24 01/05/24 01/06/24 06:27 13:37 07:54 Hold Purple Top SEE NOTE Anion Gap 15 Estim Creat Clear Calc 83.1 Estimated GFR > 60 Random Glucose 116 H Lactic Acid F/U @ 2Hr 2.1 H* Calcium 9.2 Magnesium 2.2 TSH 0.63 Microbiology Microbiology Results: Microbiology 01/05/24 11:35 Blood Culture - Preliminary Blood - Venous Gram negative kieran 01/05/24 11:17 Blood Culture - Preliminary Blood - Venous Gram negative kieran 01/05/24 11:37 Urine Culture - Preliminary Urine clean catch - Urine [place] top Gram negative kieran Assessment and Plan (1) Pyelonephritis: Status: Acute (2) Fracture of rib: Status: Acute Plan Pt is a 63-year-old female with a PMH significant for?HTN, GERD, HFpEF, alcohol use disorder with hx of withdrawal, anxiety, and depression who presents to the ED after fall out of bed this morning when she reached for a water bottle on the nightstand. ER workup consistent with pyelonephritis 1.Pyelonephritis w/bacteremia -blood/urine preliminary cultures GNR -continue ceftriaxone (1) -adjust based on sensitivities 2.Right rib fractures -CT with nondisplaced fractures right 6th and 7th ribs -symptomatic treatment 3.Hypomagnesemia -repleted -follow renals/divalents 4.Alcohol use disorder -CIWA protocol Full Code Trevorx Patient will require ongoing hospitalization for IV antibiotics for bacteremia pending identification Quality Stroke Does the patient have a stroke diagnosis?: No VTE Prior VTE?: No VTE Risk Level:: Medical - moderate - high VTE Device Contraindication: Treatment Not Indicated VTE Drug Contraindication: N/A - Med Ordered
--- NOTE | 2024-01-06 12:20 | MHC.CM.PN ---
IMM delivered. Patient lives in apartment w/ a roommate. States she does not use any AD's, but furniture surfs frequently or stays in bed. Denies use of DME or services. PCP Le Haddad, DO HCP on file and verified. DP: PT eval is pending. Goal is home w/ services, prefers [facility]. Referral placed in [facility]. Recovery team consult also pending for ETOH. Patient unsure if she will accept resources. [facility] will transport home. CM will continue to follow.
[2024-01-06 15:10] VITALS: BP 109/59; PULSE 98; RESP 18; TEMP 36.1; O2SAT 97
[2024-01-06] MEDS: Enoxaparin Sodium 40 MG/0.4 ML SYRINGE SUBCUT (17:06)
[2024-01-06] MEDS: Acetaminophen 325 MG TABLET 650 MG PO (19:35)
[2024-01-06 19:47] VITALS: BP 104/62; PULSE 96; RESP 16; TEMP 36.5; O2SAT 100
--- NOTE | 2024-01-06 21:34 | PM.EVENT ---
Event Note Date of Service: 01/06/24 Event Note: 9:28 PM - Contacted to notify patient has severe temporal headache and reporting visual hallucination like seeing her dog besides her and a person by the window. According to nursing patient drinks 1 bottle of wine daily and her current CIWA is 7. Pharmacy consult placed to start therapy with phenobarbital. Time Spent With Patient Time: Total time managing care of this patient today ____ minutes.
[2024-01-06] MEDS: Folic Acid 1 MG TABLET PO (22:04)
[2024-01-06] MEDS: Thiamine HCL 100 MG in 0.9 % Sodium Chloride 100 ML 202 MG IV (22:06)
[2024-01-06] MEDS: PHENobarbitaL sodium 130 MG/ML IM ONCE 218 MG IM (22:06)
--- NOTE | 2024-01-06 23:45 | PC.NURSE ---
Pt seen on bed alert and oriented, c/o temporal headache that goes down to her ears, Tylenol prn given with good relief, pt also reported some visual hallucination like seeing her dog beside her and a person by the window, also CIWA=7, Dr. Montiel was notified,meds ordered and pt complied, Folic Acid tab po given, Thiamin 100 mg IV drip given, and Phenobarb 218mg IM given.
[2024-01-07 01:13] VITALS: BP 112/68; PULSE 84; RESP 18; O2SAT 98
[2024-01-07] MEDS: PHENobarbitaL sodium 130 MG/ML VIAL IM Q3Hx2 164 MG IM ×2 (01:14→04:29)
[2024-01-07 03:51] VITALS: BP 101/58; PULSE 76; RESP 18; TEMP 36.4; O2SAT 98
[2024-01-07] MEDS: Omeprazole 40 MG CAPSULE.DR PO (05:33)
[2024-01-07 07:43] VITALS: BP 108/59; PULSE 89; RESP 16; TEMP 36.8; O2SAT 95
[2024-01-07] MEDS: Venlafaxine HCl ER 150 MG CAP.ER.24H PO (08:11)
[2024-01-07] MEDS: Folic Acid 1 MG TABLET PO (08:11)
[2024-01-07] MEDS: Magnesium Oxide 400 MG TABLET PO ×2 (08:11→17:52)
[2024-01-07] MEDS: Multivitamin TABLET 1 TAB PO (08:11)
[2024-01-07] MEDS: PHENobarbitaL 15 MG TABLET 45 MG PO ×2 (08:11→20:37)
[2024-01-07] MEDS: Cyanocobalamin (Vitamin B-12) 1,000 MCG TABLET 1000 MCG PO (08:11)
[2024-01-07] MEDS: Thiamine HCL 100 MG TABLET PO (08:11)
[2024-01-07] MEDS: 0.9 % Sodium Chloride Flush 3 ML SYRINGE IVFLUSH ×3 (08:12→20:37)
--- NOTE | 2024-01-07 10:58 | MHC.RECOVRN ---
Pt in [id number] positive screen for unhealthy alcohol use on admission, subsequently met with t/w to discuss alcohol use and recovery supports/options. Pt voices concern regarding alcohol use and is aware that drinking at unhealthy levels is known to increase risk of alcohol related health problems. Pt reports that she has drank since she was young but that it used to be for fun and now it is out of boredom.? She reported during H&P ? bottle of wine daily.? Pt expresses how alcohol use has impacted health, including negative impact on physical health as well as isolation. Written education provided re: risk reduction strategies including drinking below the recommended limit. Provided pt with written resources including information on inpatient and outpatient treatment, [facility], harm reduction, and recovery coaching. Pt plans to explore recovery coaching and possibly SMART recovery or other non step support groups.? Pt provided with t/w contact information if questions or concerns arise. Denies other questions or concerns at this time.
--- NOTE | 2024-01-07 12:39 | P.PNIM_ITS ---
Subjective Subjective Date of Service: 01/07/24 Interval History: Episodes of visual and auditory hallucinations overnight consistent with alcohol withdrawal. Started on phenobarbital protocol Review of Systems Denies chest pain Denies shortness of breath Denies nausea vomiting diarrhea Denies fever chills Physical Exam 2 Vital Signs: Vital Signs: Last Vital Signs Temp 98.3 F 01/07/24 07:43 Pulse 89 01/07/24 07:43 Resp 16 01/07/24 07:43 BP 108/59 L 01/07/24 07:43 Pulse Ox 95 01/07/24 07:43 O2 Del Method Room Air 01/07/24 07:43 BMI result Body Mass Index 22.4 Const: Other: Awake alert no acute distress Resp: Other: Clear to auscultation bilaterally no rales rhonchi or wheezes Cardio: Other: No S4; positive S1-S2; no S3 murmurs rubs or gallops GI: Other: Soft nontender nondistended normoactive bowel sounds Extrem: Other: No edema bilaterally Objective Data Active Medications Acetaminophen (Acetaminophen 325 Mg Tablet) 650 mg PO Q6H PRN PRN Reason: Pain, Mild (Pain Scale 1-3) Last Admin: 01/06/24 19:35 Dose: 650 mg Documented By: CASTILRojelio Benzonatate (Benzonatate 100 Mg Capsule) 100 mg PO TID PRN PRN Reason: Cough Cyanocobalamin (Cyanocobalamin (Vitamin B-12) 1,000 Mcg Tablet) 1,000 mcg PO DAILY [facility] Last Admin: 01/07/24 08:11 Dose: 1,000 mcg Documented By: KEVIN Docusate Sodium (Docusate Sodium 100 Mg Capsule) 100 mg PO DAILY PRN PRN Reason: Constipation Enoxaparin Sodium (Enoxaparin Sodium 40 Mg/0.4 Ml Syringe) 40 mg SUBCUT Q24H [facility] Last Admin: 01/06/24 17:06 Dose: 40 mg Documented By: SERGE Folic Acid (Folic Acid 1 Mg Tablet) 1 mg PO DAILY [facility] Last Admin: 01/07/24 08:11 Dose: 1 mg Documented By: KEVIN Gabapentin (Gabapentin 100 Mg Capsule) 200 mg PO TID [facility] Last Admin: 01/07/24 08:12 Dose: Not Given Documented By: KEVIN Non-Admin Reason: Patient Refused Ceftriaxone Sodium 1 gm/ (Sodium Chloride) 50 mls @ 100 mls/hr IV Q24H [facility] Last Infusion: 01/06/24 12:40 Dose: Infused Documented By: SERGE Magnesium Oxide (Magnesium Oxide 400 Mg Tablet) 400 mg PO BIDPC [facility] Last Admin: 01/07/24 08:11 Dose: 400 mg Documented By: KEVIN Melatonin (Melatonin 3 Mg Tablet) 6 mg PO BEDTIME PRN PRN Reason: Insomnia Multivitamins/Vitamin C (Multivitamin Tablet) 1 tab PO DAILY [facility] Last Admin: 01/07/24 08:11 Dose: 1 tab Documented By: KEVIN Omeprazole (Omeprazole 40 Mg Capsule.Dr) 40 mg PO DAILY@0630 [facility] Last Admin: 01/07/24 05:33 Dose: 40 mg Documented By: HARISH Ondansetron HCl (Ondansetron Hcl 4 Mg/2 Ml Vial) 4 mg IVPUSH Q8H PRN PRN Reason: Nausea and Vomiting Pharmacy Consult (Consult Rx Etoh Phenob Im/Po) 1 each MISCELLANE ONCE PRN; Protocol PRN Reason: Consult order Phenobarbital (Phenobarbital 15 Mg Tablet) 45 mg PO BID [facility] Stop: 01/08/24 21:01 Last Admin: 01/07/24 08:11 Dose: 45 mg Documented By: KEVIN Phenobarbital (Phenobarbital 30 Mg Tablet) 30 mg PO BID [facility] Stop: 01/10/24 21:01 Phenobarbital (Phenobarbital 15 Mg Tablet) 15 mg PO DAILY [facility] Stop: 01/12/24 09:01 Sodium Chloride (0.9 % Sodium Chloride Flush 3 Ml Syringe) 3 ml IVFLUSH QSHIFT [facility] Last Admin: 01/07/24 08:12 Dose: 3 ml Documented By: KEVIN Thiamine HCl (Thiamine Hcl 100 Mg Tablet) 100 mg PO DAILY [facility] Last Admin: 01/07/24 08:11 Dose: 100 mg Documented By: KEVIN Venlafaxine HCl (Venlafaxine Hcl Er 150 Mg Cap.Er.24h) 150 mg PO DAILY [facility] Last Admin: 01/07/24 08:11 Dose: 150 mg Documented By: KEVNI Labs 01/05/24 06:27 01/06/24 07:54 Microbiology Microbiology Results: Microbiology 01/05/24 11:35 Blood Culture - Final Blood - Venous Escherichia coli 01/05/24 11:17 Blood Culture - Final Blood - Venous Escherichia coli Coag negative Staphylococcus 01/05/24 11:37 Urine Culture - Final Urine clean catch - Urine mad[place] top Escherichia coli Assessment and Plan (1) Pyelonephritis: Status: Acute (2) E coli bacteremia: Status: Acute (3) Alcohol use disorder: Status: Acute Plan Pt is a 63-year-old female with a PMH significant for?HTN, GERD, HFpEF, alcohol use disorder with hx of withdrawal, anxiety, and depression who presents to the ED after fall out of bed this morning when she reached for a water bottle on the nightstand. ER workup consistent with pyelonephritis 1.Pyelonephritis w/bacteremia -blood/urine positive for E coli sensitive to ceftriaxone -continue ceftriaxone (2).. Switch to p.o. Ceftin upon DC -CT of abdomen/pelvis without obstructive lesions 2. Alcohol withdrawal -observe on CIWA -phenobarb protocol 3.Hypomagnesemia -repleted -follow renals/divalents 4.Alcohol use disorder -CIWA protocol Full Code Lovenox Patient will require ongoing hospitalization for IV antibiotics for bacteremia and for CIWA protocol for alcohol Quality Stroke Does the patient have a stroke diagnosis?: No VTE Prior VTE?: No VTE Risk Level:: Medical - moderate - high VTE Device Contraindication: Treatment Not Indicated VTE Drug Contraindication: N/A - Med Ordered
[2024-01-07] MEDS: cefTRIAXone sodium 1 GM in 0.9 % Sodium Chloride 50 ML IV (15:12)
[2024-01-07 15:39] VITALS: BP 113/55; PULSE 88; RESP 18; TEMP 36.8; O2SAT 100
[2024-01-07] MEDS: Enoxaparin Sodium 40 MG/0.4 ML SYRINGE SUBCUT (17:52)
[2024-01-07 19:01] VITALS: BP 114/59; PULSE 92; RESP 18; TEMP 36.1; O2SAT 100
[2024-01-07] MEDS: Gabapentin 100 MG CAPSULE 200 MG PO (20:36)
[2024-01-08 03:00] VITALS: BP 112/66; PULSE 79; RESP 16; TEMP 36.1; O2SAT 97
[2024-01-08] MEDS: Omeprazole 40 MG CAPSULE.DR PO (06:14)
[2024-01-08 07:20] VITALS: BP 129/58; PULSE 77; RESP 16; TEMP 36.6; O2SAT 98
[2024-01-08 07:35] LABS: Alanine Aminotransferase 46 U/L (0-31); Albumin Level 2.7 g/dL (3.5-5.0); Alkaline Phosphatase 92 U/L (39-117); Anion Gap 13 (12-20); Aspartate Amino Transferase 100 U/L (5-31); Bilirubin Total 2.9 mg/dL (0.0-1.0); Blood Urea Nitrogen 6 mg/dL (9-16); Calcium 9.1 mg/dL (8.4-10.2); Carbon Dioxide 25 mmol/L (22-29); Chloride 105 mmol/L (96-108); Creatinine Clr Calc Pharmacy 98.1; Estimated Glomerular Filt Rate > 60; Glucose Fasting 95 mg/dL (60-99); Potassium 3.3 mmol/L (3.3-5.1); Sodium 140 mmol/L (135-145); Total Protein 5.6 g/dL (6.5-8.0)
[2024-01-08 08:41] LABS: Basophils Absolute Auto 0.1 X10*3/uL (0.0-0.2); Basophils Percent Auto 1.1 % (0-2); Eosinophils Absolute Auto 0.1 X10*3/uL (0.0-0.4); Eosinophils Percent Auto 1.6 % (0-4); Hematocrit 32.4 % (37.0-47.0); Hemoglobin 11.8 g/dl (12.0-16.0); Imm Gran Abs Auto 0.03 X10*3/uL (0.00-0.03); Imm Gran Pct Auto 0.7 % (0.0-0.4); Lymphocytes Absolute Auto 1.3 X10*3/uL (1.2-4.9); Lymphocytes Percent Auto 29.1 % (20-40); Mean Corpuscular HGB Conc 36.4 g/dl (31.0-35.0); Mean Corpuscular Hemoglobin 37.2 pg (27.0-33.0); Mean Corpuscular Volume 102.2 fL (80.0-98.0); Monocytes Absolute Auto 0.6 X10*3/uL (0.1-1.2); Monocytes Percent Auto 12.6 % (2-11); Neutrophils Absolute Auto 2.5 x10*3/uL (2.0-8.3); Neutrophils Percent Auto 54.9 % (45-73); Red Blood Count 3.17 X10*6/uL (4.20-5.50); Red Cell Distribution Width 14.9 % (11.0-16.0); White Blood Count 4.5 X10*3/uL (4.8-10.8)
[2024-01-08 08:43] LABS: MANUAL DIFF FLAG NO
[2024-01-08] MEDS: Magnesium Oxide 400 MG TABLET PO ×2 (09:01→17:07)
[2024-01-08] MEDS: Thiamine HCL 100 MG TABLET PO (09:01)
[2024-01-08] MEDS: 0.9 % Sodium Chloride Flush 3 ML SYRINGE IVFLUSH ×2 (09:01→15:22)
[2024-01-08] MEDS: Folic Acid 1 MG TABLET PO (09:01)
[2024-01-08] MEDS: Cyanocobalamin (Vitamin B-12) 1,000 MCG TABLET 1000 MCG PO (09:01)
[2024-01-08] MEDS: PHENobarbitaL 15 MG TABLET 45 MG PO ×2 (09:01→21:23)
[2024-01-08] MEDS: Multivitamin TABLET 1 TAB PO (09:01)
[2024-01-08] MEDS: Gabapentin 100 MG CAPSULE 200 MG PO ×3 (09:01→21:22)
[2024-01-08] MEDS: Venlafaxine HCl ER 150 MG CAP.ER.24H PO (09:01)
[2024-01-08 09:05] LABS: Mean Platelet Volume 11.6 fL (9.4-12.3)
[2024-01-08 09:07] LABS: Platelet Count 75 X10*3/uL (160-400)
--- NOTE | 2024-01-08 12:36 | HO.PM.IMPN ---
Subjective Subjective Date of Service: 01/08/24 Interval History: No acute issues today. No further hallucinations. Question related to EtOH or infection. Review of Systems Denies chest pain Denies shortness of breath Denies nausea vomiting diarrhea Denies fever chills Physical Exam Vital Signs: Vital Signs: Last Vital Signs Temp 97.8 F 01/08/24 07:20 Pulse 77 01/08/24 07:20 Resp 16 01/08/24 07:20 BP 129/58 L 01/08/24 07:20 Pulse Ox 98 01/08/24 07:20 O2 Del Method Room Air 01/08/24 07:20 BMI result Body Mass Index 22.4 Const: Other: Awake alert no acute distress Resp: Other: Clear to auscultation bilaterally no rales rhonchi or wheezes Cardio: Other: No S4; positive S1-S2; no S3 murmurs rubs or gallops GI: Other: Soft nontender nondistended normoactive bowel sounds Extrem: Other: No edema bilaterally Objective Data Active Medications Acetaminophen (Acetaminophen 325 Mg Tablet) 650 mg PO Q6H PRN PRN Reason: Pain, Mild (Pain Scale 1-3) Last Admin: 01/06/24 19:35 Dose: 650 mg Documented By: CASTILRojelio Benzonatate (Benzonatate 100 Mg Capsule) 100 mg PO TID PRN PRN Reason: Cough Cyanocobalamin (Cyanocobalamin (Vitamin B-12) 1,000 Mcg Tablet) 1,000 mcg PO DAILY [facility] Last Admin: 01/08/24 09:01 Dose: 1,000 mcg Documented By: KEVIN Docusate Sodium (Docusate Sodium 100 Mg Capsule) 100 mg PO DAILY PRN PRN Reason: Constipation Enoxaparin Sodium (Enoxaparin Sodium 40 Mg/0.4 Ml Syringe) 40 mg SUBCUT Q24H [facility] Last Admin: 01/07/24 17:52 Dose: 40 mg Documented By: KEVIN Folic Acid (Folic Acid 1 Mg Tablet) 1 mg PO DAILY [facility] Last Admin: 01/08/24 09:01 Dose: 1 mg Documented By: KEVIN Gabapentin (Gabapentin 100 Mg Capsule) 200 mg PO TID [facility] Last Admin: 01/08/24 09:01 Dose: 200 mg Documented By: KEVIN Ceftriaxone Sodium 1 gm/ (Sodium Chloride) 50 mls @ 100 mls/hr IV Q24H [facility] Last Infusion: 01/07/24 15:42 Dose: Infused Documented By: KEVIN Magnesium Oxide (Magnesium Oxide 400 Mg Tablet) 400 mg PO BIDPC [facility] Last Admin: 01/08/24 09:01 Dose: 400 mg Documented By: KEVIN Melatonin (Melatonin 3 Mg Tablet) 6 mg PO BEDTIME PRN PRN Reason: Insomnia Multivitamins/Vitamin C (Multivitamin Tablet) 1 tab PO DAILY [facility] Last Admin: 01/08/24 09:01 Dose: 1 tab Documented By: KEVIN Omeprazole (Omeprazole 40 Mg Capsule.Dr) 40 mg PO DAILY@0630 [facility] Last Admin: 01/08/24 06:14 Dose: 40 mg Documented By: ISELA Ondansetron HCl (Ondansetron Hcl 4 Mg/2 Ml Vial) 4 mg IVPUSH Q8H PRN PRN Reason: Nausea and Vomiting Pharmacy Consult (Consult Rx Etoh Phenob Im/Po) 1 each MISCELLANE ONCE PRN; Protocol PRN Reason: Consult order Phenobarbital (Phenobarbital 15 Mg Tablet) 45 mg PO BID [facility] Stop: 01/08/24 21:01 Last Admin: 01/08/24 09:01 Dose: 45 mg Documented By: KEVIN Phenobarbital (Phenobarbital 30 Mg Tablet) 30 mg PO BID [facility] Stop: 01/10/24 21:01 Phenobarbital (Phenobarbital 15 Mg Tablet) 15 mg PO DAILY [facility] Stop: 01/12/24 09:01 Sodium Chloride (0.9 % Sodium Chloride Flush 3 Ml Syringe) 3 ml IVFLUSH QSHIFT [facility] Last Admin: 01/08/24 09:01 Dose: 3 ml Documented By: KEVIN Thiamine HCl (Thiamine Hcl 100 Mg Tablet) 100 mg PO DAILY [facility] Last Admin: 01/08/24 09:01 Dose: 100 mg Documented By: KEVIN Venlafaxine HCl (Venlafaxine Hcl Er 150 Mg Cap.Er.24h) 150 mg PO DAILY [facility] Last Admin: 01/08/24 09:01 Dose: 150 mg Documented By: KEVIN Labs 01/08/24 08:32 01/08/24 06:11 Labs: Laboratory Results - last 24 hr 01/08/24 01/08/24 06:11 08:32 MCV 102.2 H MCH 37.2 H MCHC 36.4 H RDW 14.9 Plt Count 75 L D MPV 11.6 Immature Gran % (Auto) 0.7 H Neut % (Auto) 54.9 Lymph % (Auto) 29.1 Rice % (Auto) 12.6 H Eos % (Auto) 1.6 Baso % (Auto) 1.1 Lymph # (Auto) 1.3 Rice # (Auto) 0.6 Eos # (Auto) 0.1 Baso # (Auto) 0.1 Abs Immat Gran (auto) 0.03 Absolute Neuts (auto) 2.5 Absolute Nucleated RBC 0.000 Nucleated RBC % (auto) 0.0 Anion Gap 13 Estim Creat Clear Calc 98.1 Estimated GFR > 60 Fasting Glucose 95 Calcium 9.1 Total Bilirubin 2.9 H AST 100 H ALT 46 H Alkaline Phosphatase 92 Total Protein 5.6 L Albumin 2.7 L Assessment and Plan (1) Pyelonephritis: Status: Acute (2) E coli bacteremia: Status: Acute (3) Alcohol use disorder: Status: Acute Plan Pt is a 63-year-old female with a PMH significant for?HTN, GERD, HFpEF, alcohol use disorder with hx of withdrawal, anxiety, and depression who presents to the ED after fall out of bed this morning when she reached for a water bottle on the nightstand. ER workup consistent with pyelonephritis 1.Pyelonephritis w/bacteremia -blood/urine positive for E coli sensitive to ceftriaxone -continue ceftriaxone (3).. Switch to p.o. Ceftin upon DC -CT of abdomen/pelvis without obstructive lesions 2. Alcohol withdrawal vs metabolic encephalopathy -observe on CIWA -will continue phenobarbital protocol 3.Hypomagnesemia -repleted -follow renals/divalents Full Code Lovenox Patient will require ongoing hospitalization for IV antibiotics for bacteremia Quality Stroke Does the patient have a stroke diagnosis?: No VTE Prior VTE?: No VTE Risk Level:: Medical - moderate - high VTE Device Contraindication: Treatment Not Indicated VTE Drug Contraindication: N/A - Med Ordered
--- NOTE | 2024-01-08 13:16 | MHC.CM.PN ---
PT HAS BEEN RECOMMENDED FOR STR. PT HAS AGREED TO [facility] [place]. [facility] HAS OFFERED A BED FOR TOMORROW. CM WILL CONTINUE TO FOLLOW FOR ANY CHANGE TO DC PLAN.
[2024-01-08 13:27] VITALS: BMI 22.4
--- NOTE | 2024-01-08 13:41 | MHC.CLN ---
NUTRITION CONSULT FOR POOR PO AND WEIGHT LOSS. REGULAR DIET. REPORTED DECREASE IN APPETITE AND INTAKE. SIGNIFICANT WEIGHT LOSS X 6 MONTHS. APPEARS THIN BUT NO DEPLETION OF BODY FAT OR MUSCLE MASS OBSERVED. WILL ADD ENSURE TID TO PROVIDE ADDITIONAL 1050 KCALS, 60 G PROTEIN. LIKELY HX INADEQUATE INTAKE OF FOOD DUE TO ETOH USE. FOLLOW FOR INTAKE. SEE CLINICAL NUTRITION ASSESSMENT 01/08/24.
[2024-01-08] MEDS: cefTRIAXone sodium 1 GM in 0.9 % Sodium Chloride 50 ML IV (15:23)
[2024-01-08 15:45] VITALS: BP 122/67; PULSE 84; RESP 18; TEMP 36.3; O2SAT 97
[2024-01-08] MEDS: Enoxaparin Sodium 40 MG/0.4 ML SYRINGE SUBCUT (17:07)
[2024-01-08 19:19] VITALS: BP 101/57; PULSE 86; RESP 18; TEMP 36; O2SAT 100
[2024-01-08 21:24] VITALS: BP 110/72; PULSE 92
[2024-01-09] MEDS: 0.9 % Sodium Chloride Flush 3 ML SYRINGE IVFLUSH ×4 (00:50→21:29)
[2024-01-09 03:04] VITALS: BP 111/59; PULSE 75; RESP 16; TEMP 36.1; O2SAT 98
[2024-01-09] MEDS: Omeprazole 40 MG CAPSULE.DR PO (05:10)
[2024-01-09 07:23] VITALS: BP 119/72; PULSE 75; RESP 12; TEMP 36.1; O2SAT 100
[2024-01-09] MEDS: Thiamine HCL 100 MG TABLET PO (08:09)
[2024-01-09] MEDS: Multivitamin TABLET 1 TAB PO (08:09)
[2024-01-09] MEDS: Gabapentin 100 MG CAPSULE 200 MG PO ×3 (08:09→21:29)
[2024-01-09] MEDS: Cyanocobalamin (Vitamin B-12) 1,000 MCG TABLET 1000 MCG PO (08:09)
[2024-01-09] MEDS: Venlafaxine HCl ER 150 MG CAP.ER.24H PO (08:09)
[2024-01-09] MEDS: Magnesium Oxide 400 MG TABLET PO ×2 (08:09→17:06)
[2024-01-09] MEDS: Folic Acid 1 MG TABLET PO (08:09)
[2024-01-09] MEDS: PHENobarbitaL 30 MG TABLET PO ×2 (08:09→21:29)
[2024-01-09 15:25] VITALS: BP 113/63; PULSE 78; RESP 18; TEMP 37; O2SAT 100
[2024-01-09] MEDS: cefTRIAXone sodium 1 GM in 0.9 % Sodium Chloride 50 ML IV (15:51)
--- NOTE | 2024-01-09 16:41 | P.PNIM_ITS ---
Subjective Subjective Date of Service: 01/09/24 Interval History: Being followed for acute pyelonephritis and alcohol withdrawal, patient complaining of visual hallucination, denies nausea vomiting, no sweating no palpitations no chest pain denies urinary burning no fevers no chills tolerating diet no other acute issues overnight. Review of Systems All other system reviewed and negative Physical Exam 2 Vital Signs: Vital Signs: Last Vital Signs Temp 98.6 F 01/09/24 15:25 Pulse 78 01/09/24 15:25 Resp 18 01/09/24 15:25 BP 113/63 01/09/24 15:25 Pulse Ox 100 01/09/24 15:25 O2 Del Method Room Air 01/09/24 15:25 BMI result Body Mass Index 22.4 Const: Other: General awake alert x3, resting comfortably, in no acute distress. Anicteric sclera Neck supple no JVD. CVS regular rate rhythm, Respiratory lungs clear to auscultation, no respiratory distress, no wheeze, no rhonchi. Gastrointestinal abdomen soft, non tender, bowel sounds audible, no guarding , no rigidity. Extremities no edema. Neuro non focal , speech clear, no tremors. Skin no rash Appropriate affect Objective Data Active Medications Acetaminophen (Acetaminophen 325 Mg Tablet) 650 mg PO Q6H PRN PRN Reason: Pain, Mild (Pain Scale 1-3) Last Admin: 01/06/24 19:35 Dose: 650 mg Documented By: HARISH Benzonatate (Benzonatate 100 Mg Capsule) 100 mg PO TID PRN PRN Reason: Cough Cyanocobalamin (Cyanocobalamin (Vitamin B-12) 1,000 Mcg Tablet) 1,000 mcg PO DAILY [facility] Last Admin: 01/09/24 08:09 Dose: 1,000 mcg Documented By: BEBO Docusate Sodium (Docusate Sodium 100 Mg Capsule) 100 mg PO DAILY PRN PRN Reason: Constipation Enoxaparin Sodium (Enoxaparin Sodium 40 Mg/0.4 Ml Syringe) 40 mg SUBCUT Q24H [facility] Last Admin: 01/08/24 17:07 Dose: 40 mg Documented By: KEVIN Folic Acid (Folic Acid 1 Mg Tablet) 1 mg PO DAILY [facility] Last Admin: 01/09/24 08:09 Dose: 1 mg Documented By: BEBO Gabapentin (Gabapentin 100 Mg Capsule) 200 mg PO TID [facility] Last Admin: 01/09/24 15:51 Dose: 200 mg Documented By: BEBO Ceftriaxone Sodium 1 gm/ (Sodium Chloride) 50 mls @ 100 mls/hr IV Q24H [facility] Last Infusion: 01/09/24 16:27 Dose: Infused Documented By: BEBO Magnesium Oxide (Magnesium Oxide 400 Mg Tablet) 400 mg PO BIDPC [facility] Last Admin: 01/09/24 08:09 Dose: 400 mg Documented By: BEBO Melatonin (Melatonin 3 Mg Tablet) 6 mg PO BEDTIME PRN PRN Reason: Insomnia Multivitamins/Vitamin C (Multivitamin Tablet) 1 tab PO DAILY [facility] Last Admin: 01/09/24 08:09 Dose: 1 tab Documented By: BEBO Omeprazole (Omeprazole 40 Mg Capsule.Dr) 40 mg PO DAILY@0630 [facility] Last Admin: 01/09/24 05:10 Dose: 40 mg Documented By: ANTOIC Ondansetron HCl (Ondansetron Hcl 4 Mg/2 Ml Vial) 4 mg IVPUSH Q8H PRN PRN Reason: Nausea and Vomiting Pharmacy Consult (Consult Rx Etoh Phenob Im/Po) 1 each MISCELLANE ONCE PRN; Protocol PRN Reason: Consult order Phenobarbital (Phenobarbital 30 Mg Tablet) 30 mg PO BID [facility] Stop: 01/10/24 21:01 Last Admin: 01/09/24 08:09 Dose: 30 mg Documented By: BEBO Phenobarbital (Phenobarbital 15 Mg Tablet) 15 mg PO DAILY [facility] Stop: 01/12/24 09:01 Sodium Chloride (0.9 % Sodium Chloride Flush 3 Ml Syringe) 3 ml IVFLUSH QSHIFT [facility] Last Admin: 01/09/24 15:51 Dose: 3 ml Documented By: BEBO Thiamine HCl (Thiamine Hcl 100 Mg Tablet) 100 mg PO DAILY [facility] Last Admin: 01/09/24 08:09 Dose: 100 mg Documented By: BEBO Venlafaxine HCl (Venlafaxine Hcl Er 150 Mg Cap.Er.24h) 150 mg PO DAILY [facility] Last Admin: 01/09/24 08:09 Dose: 150 mg Documented By: BEBO Labs 01/08/24 08:32 01/08/24 06:11 Assessment and Plan (1) Pyelonephritis: Status: Acute (2) E coli bacteremia: Status: Acute (3) Alcohol use disorder: Status: Acute Plan Pt is a 63-year-old female with a PMH significant for?HTN, GERD, HFpEF, alcohol use disorder with hx of withdrawal, anxiety, and depression who presents to the ED after fall out of bed this morning when she reached for a water bottle on the nightstand. ER workup consistent with pyelonephritis 1. Acute Pyelonephritis w/E coli bacteremia -blood/urine positive for E coli sensitive to ceftriaxone -continue ceftriaxone D4, Switch to p.o. Ceftin upon DC -CT of abdomen/pelvis without obstructive lesions 2. Alcohol withdrawal -continue phenobarbital protocol, persistent visual hallucinations, continue folic acid and thiamine -patient seen by Addiction Team provided with written resources including information on inpatient and outpatient treatment, KRUPA, harm reduction, and recovery coaching. Pt. plans to explore recovery coaching and possibly [facility] or other non step support groups.? 3.Hypomagnesemia -repleted and normalized continue by mouth magnesium 4.Rib fractures CT with nondisplaced fractures right 6th and 7th ribs Secondary to fall out bed Good pain control, Symptomatic treatment, encourage incentive spirometry 5.Generalized weakness/failure to thrive PT rec STR 6. Mood disorder continue home medication Full Code Lovenox Patient will require ongoing hospitalization for IV antibiotics for bacteremia and for persistent visual hallucination requiring phenobarb Quality Stroke Does the patient have a stroke diagnosis?: No VTE Prior VTE?: No VTE Risk Level:: Medical - moderate - high VTE Device Contraindication: Treatment Not Indicated VTE Drug Contraindication: N/A - Med Ordered
[2024-01-09] MEDS: Enoxaparin Sodium 40 MG/0.4 ML SYRINGE SUBCUT (17:06)
[2024-01-09] MEDS: Potassium Chloride ER 20 MEQ TAB.ER.PRT PO (17:06)
[2024-01-09 19:28] VITALS: BP 112/62; PULSE 83; RESP 18; TEMP 36.2; O2SAT 98
[2024-01-10 03:43] VITALS: BP 128/72; PULSE 79; RESP 16; TEMP 36; O2SAT 96
[2024-01-10] MEDS: Omeprazole 40 MG CAPSULE.DR PO (05:46)
[2024-01-10] MEDS: 0.9 % Sodium Chloride Flush 3 ML SYRINGE IVFLUSH (07:31)
[2024-01-10 08:00] VITALS: BP 128/70; PULSE 79; RESP 16; TEMP 36.1; O2SAT 95
[2024-01-10] MEDS: PHENobarbitaL 30 MG TABLET PO (09:09)
[2024-01-10] MEDS: Venlafaxine HCl ER 150 MG CAP.ER.24H PO (09:09)
[2024-01-10] MEDS: Folic Acid 1 MG TABLET PO (09:09)
[2024-01-10] MEDS: Cyanocobalamin (Vitamin B-12) 1,000 MCG TABLET 1000 MCG PO (09:09)
[2024-01-10] MEDS: Multivitamin TABLET 1 TAB PO (09:09)
[2024-01-10] MEDS: Gabapentin 100 MG CAPSULE 200 MG PO (09:09)
[2024-01-10] MEDS: Thiamine HCL 100 MG TABLET PO (09:09)
[2024-01-10] MEDS: Magnesium Oxide 400 MG TABLET PO (09:09)
--- NOTE | 2024-01-10 10:50 | P.DS_ITS ---
DS: Providers Provider Date of Service: 01/10/24 Date of admission: 01/05/24 15:59 Primary care physician: Le Haddad DO Consults: 01/05/24 20:48 Addiction Medicine Routine Consulting Provider: Guille Covering Reason for consultation: daily alcohol intake DS: Diagnosis Discharge Diagnosis (1) Pyelonephritis: Status: Acute (2) E coli bacteremia: Status: Acute (3) Alcohol use disorder: Status: Acute DS: Summary Hospital Course Hospital Course: History of presenting illness: Date of Service: 01/05/24 Attending physician on admission: Doreen Luke Chief Complaint: Weakness, fall at home Pt is a 63-year-old female with a PMH significant for?HTN, GERD, HFpEF, alcohol use disorder with hx of withdrawal, anxiety, and depression who presents to the ED after fall out of bed this morning when she reached for a water bottle on the nightstand. Is not quite sure exactly what happened to cause her to fall, but pt fell on the floor and hit her right side and head on the waste basket. Pt lives with a room mate who called EMS. Pt states she has been having progressively worsening generalized weakness and difficulty walking since May of last year. Does not use assistive device for ambulation, but instead holds onto furniture. States she can now barely walk on her own and spends much of her time in bed. Last week had two falls in the bathroom. Also reports decreased appetite and reduced p.o. intake of both fluids and solids. Has a long history of heavy alcohol use, used to drink vodka but now drinks around half a bottle of wine daily. Some nausea while in the ED but no vomiting. Complains of right-sided chest wall pain. Denies fever, chills, abdominal pain. No diarrhea. No increase in swelling in lower extremities or abdomen. Reports intermittent chest tightness/pressure that has been ongoing for a long time . No SOB or difficulty breathing. Denies dysuria or polyuria. No flank pain. In the ED pt was afebrile but tachycardic up to 109, vitals otherwise WNL. Labs were significant for lactic acid 2.4, magnesium 1.2, bilirubin 2.9, AST 81, ALT 34, and albumin 3.2. UA positive for UTI. CT of head found no acute intracranial pathology. 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 CT of chest and abdomen and pelvis with multiple fi ndings, including nondisplaced fractures of right 6th and 7th ribs; patchy nephrograms of right greater than left kidneys concerning for acute pyelonephritis; fluid/liquid distention of scattered loops of small and large bowel suggestive of possible enterocolitis; and bilateral thyroid nodules. EKG demonstrated sinus tachycardia of 118 with low voltage QRS but no evidence of significant ST elevations or depressions. Pt was treated with acetaminophen, IVF Mag sulfate and ceftriaxone. Pt will be admitted to the hospital for treatment further evaluation of acute pyelonephritis. Hospital course: E coli bacteremia due to acute pyelonephritis. 63-year-old female with a PMH significant for?HTN, GERD, HFpEF, alcohol use disorder with hx of withdrawal, anxiety, and depression who presents to the ED after fall out of bed when she reached for a water bottle on the nightstand, workup in the emergency room was consistent with acute pyelonephritis patient admitted to medical floor and placed on IV ceftriaxone, urine and blood cultures grew E coli sensitive to cephalosporin, CT abdomen and pelvis showed no obstructive lesions, therefore patient is being discharged home on by mouth Ceftin 250 mg twice daily for total 2 weeks of antibiotics repeat blood cultures have been obtained and report is pending. Alcohol use disorder/ Alcohol withdrawal patient was treated with phenobarb protocol, folic acid and thiamine patient noted to have intermittent visual hallucinations now resolved patient seen by Addiction Team they provided her with written resources including information on inpatient and outpatient treatment, KRUPA, harm reduction, and recovery coaching, patient plans to explore recovery coaching and possibly [facility] or other non step support groups.? Hypomagnesemia repleted and normalized Fall with right 6 and 7th rib fractures patient has good pain control, recommend incentive spirometry Generalized weakness/failure to thrive due to poor nutrition related to alcohol use placed on ensure, patient evaluated by Physical therapy and they recommend short-term rehab. Mood disorder dose of gabapentin reduced to 100 mg t.i.d. due to excessive somnolence likely contributed to fall along with alcohol abuse. Time Attestation Discharge Coordination Time (in mins): 40 Quality: Safe Use of Opioids Does Pt have an Active Cancer Diagnosis on the Problem List?: No Quality: Stroke Does the patient have a stroke diagnosis?: No Physical Exam Vital Signs: Vital Signs: Last Vital Signs Temp 97.0 F 01/10/24 08:00 Pulse 79 05/08/24 08:00 Resp 16 01/10/24 08:00 BP 128/70 01/10/24 08:00 Pulse Ox 95 01/10/24 08:00 O2 Del Method Room Air 01/10/24 08:00 BMI result Body Mass Index 22.4 Const: Other: General awake alert x3, resting comfortably, in no acute distress. Anicteric sclera Neck supple no JVD. CVS regular rate rhythm, Respiratory lungs clear to auscultation, no respiratory distress, no wheeze, no rhonchi. Gastrointestinal abdomen soft, non tender, bowel sounds audible, no guarding , no rigidity. Extremities no edema. Neuro non focal , speech clear, no tremors. Skin no rash Appropriate affect DS: Data Data Completed and Pending Completed studies during hospitalization [Text1]: Procedures Detoxification Services for Substance Abuse Treatment (07/01/23) Discharge Plan Discharge Anticipated Discharge Date/Time: 01/10/24 10:49 Patient Disposition: Xfer SNF Discharge Diagnosis: E coli bacteremia Generalized weakness Alcohol use disorder Fall with right 6 and 7th rib fractures Referrals: Re[facility] Bust[facility] [Outside] - 1 Day (short term rehab) Le Haddad DO [Primary Care Provider] - 1 Week Discharge Medications: New magnesium oxide 400 mg (241.3 mg magnesium) Tablet 400 mg PO DAILY Qty: 30 0RF cefuroxime axetil 250 mg tablet 250 mg PO BID 10 Days Qty: 20 0RF Continued lansoprazole 30 mg capsule,delayed release(DR/EC) 30 mg PO DAILY Qty: 30 3RF cetirizine 10 mg tablet 10 mg PO DAILY ergocalciferol (vitamin D2) 1,250 mcg (50,000 unit) capsule 1,250 mcg PO QWEEK hydroxyzine pamoate 50 mg capsule 50 mg PO BID PRN (Reason: anxiety) cyanocobalamin (vitamin B-12) 1,000 mcg tablet 1,000 mcg PO DAILY venlafaxine 150 mg capsule,extended release 24hr 150 mg PO DAILY Changed gabapentin 100 mg capsule 100 mg PO Q8H Qty: 20 0RF Discontinued metoprolol succinate 25 mg tablet extended release 24 hr 25 mg PO DAILY 90 Days Qty: 90 4RF Discharge Orders: Discharge Order (Routine); Ordered 01/10/24 Ordered By: Doreen Luke Diet: Advance to usual diet Activity on Discharge: As tolerated Stand Alone Forms: Patient Portal Discharge page Print Language: Greenlandic Care Plan Goals: E coli bacteremia/acute pyelonephritis take Ceftin 1 tablet twice daily for 10 more days Finished course of phenobarb Right 6th and 7th rib fractures due to fall with good pain control Health Concerns: Alcohol use disorder Generalized weakness take ensure can t.i.d. Plan of Treatment: Follow-up with primary care Assessment: as above
--- NOTE | 2024-01-10 11:02 | MHC.CM.PN ---
Per MD rounds patient medically cleared for dc to STR at [facility] via BLS at 12pm. IMM delivered.
== END 2024-01-10 12:29 | disposition skilled nursing facility (03) | DRG 690 ==
LOC: HO.ED 11:15 → HO.EDOVER 16:08 → HO.S3 17:03
PROVIDERS: Hospitalist; Physician Assistant; Admitting Provider Student in an Organized Health Care Education/Training Program; Emergency Provider Emergency Medicine; PCP Family Medicine; Visit Provider Hospitalist
DX: N10 Acute pyelonephritis (principal); S22.41XA Multiple fractures of ribs, right side, initial encounter for closed fracture; I50.32 Chronic diastolic (congestive) heart failure; R78.81 Bacteremia; F10.131 Alcohol abuse with withdrawal delirium; W19.XXXA Unspecified fall, initial encounter; B96.20 Unspecified Escherichia coli [E. coli] as the cause of diseases classified elsewhere; G62.9 Polyneuropathy, unspecified; K21.9 Gastro-esophageal reflux disease without esophagitis; I11.0 Hypertensive heart disease with heart failure; E83.42 Hypomagnesemia; I25.10 Atherosclerotic heart disease of native coronary artery without angina pectoris; R62.7 Adult failure to thrive; Z68.22 Body mass index [BMI] 22.0-22.9, adult; Z79.899 Other long term (current) drug therapy
CPT/HCPCS: 36415; 70450; 71260; 72125; 74177; 80048; 80053; 80307; 81001; 81003; 82550; 83605; 83735; 84443; 84484; 85025; 85027; 85610; 87040; 87077; 87086; 87088; 87147; 87186; 87205; 93005; 97162; 99285; J0696; J1650; J2560; J3411; J3475; J7120; Q9967

== ENCOUNTER → 2024-01-05 05:39 | Outpatient (BNV) | payer MEDICARE, SELFPAY | PROVIDERS: Admitting Provider Student in an Organized Health Care Education/Training Program; Emergency Provider Emergency Medicine; PCP Family Medicine; Visit Provider Internal Medicine | DX: R00.0 Tachycardia, unspecified (principal); R94.31 Abnormal electrocardiogram [ECG] [EKG] | CPT/HCPCS: 93010 ==

== ENCOUNTER → 2024-01-05 15:59 | Outpatient (BNV) | payer MEDICARE, SELFPAY | PROVIDERS: Admitting Provider Student in an Organized Health Care Education/Training Program; Emergency Provider Emergency Medicine; PCP Family Medicine; Visit Provider Hospitalist | DX: N12 Tubulo-interstitial nephritis, not specified as acute or chronic (principal); R78.81 Bacteremia; B96.20 Unspecified Escherichia coli [E. coli] as the cause of diseases classified elsewhere; F10.90 Alcohol use, unspecified, uncomplicated | CPT/HCPCS: 99222; 99232; 99239; 99499 ==

== ENCOUNTER 2024-02-22 10:03 | Outpatient (REF) | payer MEDICARE, SELFPAY ==
[2024-02-22 12:31] LABS: Estimated Average Glucose 97 mg/dL
[2024-02-22 12:42] LABS: Alanine Aminotransferase 13 U/L (0-31); Alkaline Phosphatase 75 U/L (39-117); Anion Gap 14 (12-20); Aspartate Amino Transferase 34 U/L (5-31); Bilirubin Direct 0.6 mg/dL (0.0-0.5); Bilirubin Total 1.4 mg/dL (0.0-1.0); Blood Urea Nitrogen 8 mg/dL (9-16); Carbon Dioxide 23 mmol/L (22-29); Chloride 111 mmol/L (96-108); Cholesterol 206 mg/dL (<200); Estimated Glomerular Filt Rate > 60; Glucose Random 170 mg/dL (60-115); HDL Cholesterol 48 mg/dL (>40); Iron 170 mcg/dL (30-160); LDL Cholesterol Calculated 128 mg/dL (<100); Magnesium 1.6 mg/dL (1.6-2.6); Percent Iron Saturation 73 % (15-50); Potassium 3.7 mmol/L (3.3-5.1); Sodium 144 mmol/L (135-145); Total Iron Binding Capacity 232 mcg/dL (228-428); Total Protein 7.9 g/dL (6.5-8.0); Triglycerides 154 mg/dL (<150); Unsaturated Iron Binding 62 ug/dL
[2024-02-22 12:44] LABS: Ferritin 355 ng/mL (10-250); Thyroid Stimulating Hormone 0.05 uIU/mL (0.32-4.0); Vitamin D 25-OH Total 33.6 ng/mL (>30)
[2024-02-22 12:55] LABS: Folate 12.3 ng/mL (> or = 4.0); Vitamin B12 612 pg/mL (200-900)
[2024-02-22 13:29] LABS: Free T4 (Free Thyroxine) 0.93 ng/dL (0.71-1.85)
[2024-02-29 15:43] LABS: Vitamin B1 9 nmol/L (8-30)
== END 2024-02-22 10:04 | disposition home or self-care (01) ==
LOC: HO.HHCL 10:03
PROVIDERS: Visit Provider Family Medicine
DX: I10 Essential (primary) hypertension (principal); R53.1 Weakness; F10.90 Alcohol use, unspecified, uncomplicated; N12 Tubulo-interstitial nephritis, not specified as acute or chronic; R07.9 Chest pain, unspecified; E55.9 Vitamin D deficiency, unspecified
CPT/HCPCS: 36415; 80048; 80061; 80076; 81001; 82043; 82306; 82570; 82607; 82728; 82746; 83036; 83540; 83735; 84425; 84439; 84443

== ENCOUNTER 2024-02-23 09:27 | Outpatient (REF) | payer MEDICARE, SELFPAY ==
[2024-02-23 12:02] LABS: Appearance Urine Turbid; Color Urine Dark Yellow; Glucose Urine UA Negative (Negative); Leukocyte Esterase Urine Small (1+) (Negative); Nitrite Urine Negative (Negative); PH 5.5 (5.0-9.0); Specific Gravity - Urine 1.025 (1.005-1.025); UMIC TRIGGER UA YES; Urine Blood Negative (Negative); Urine Ketones Trace mg/dL (Negative); Urine Protein Negative (Neg-Trace)
[2024-02-23 12:21] LABS: Bacteria Urine None Seen (None Seen); Calcium Oxalate Crystals Urine Present; Hyaline Casts Urine 0-2 /LPF (0-2); RBC Urine 0-2 /HPF (0-2)
[2024-02-23 12:26] LABS: Microalbum/Creatinine Ratio Ur 7.6 ug/mg cr (<30)
== END 2024-02-23 09:28 | disposition home or self-care (01) ==
LOC: HO.HHCL 09:27
PROVIDERS: Visit Provider Family Medicine
DX: I10 Essential (primary) hypertension (principal); R82.90 Unspecified abnormal findings in urine
CPT/HCPCS: 81001; 82043; 82570; 87086

== ENCOUNTER 2024-04-26 16:48 | Outpatient (REF) | payer MEDICARE, SELFPAY | END 2024-04-26 16:49 | disposition home or self-care (01) | LOC: HO.HHCLNP 16:48 | PROVIDERS: Visit Provider Family Medicine | DX: N39.0 Urinary tract infection, site not specified (principal) | CPT/HCPCS: 87086 ==

== ENCOUNTER 2024-05-29 20:35 | Emergency (ER) | payer MEDICARE, SELFPAY ==
[2024-05-29 20:39] VITALS: BP 110/65; PULSE 87; O2SAT 96
[2024-05-29 20:44] VITALS: BP 134/77; PULSE 84; RESP 20; TEMP 36.4; O2SAT 98; BMI 20.4
[2024-05-29 20:46] VITALS: BP 134/77; PULSE 84; RESP 16; TEMP 36.4; O2SAT 98
--- OUTSIDE RECORDS SUMMARY | 2024-05-29 21:02 | XMS_ITS | Continuity of Care Document ---
Author Organization [facility] Address [address] [place] [address]- Care Team Providers Care Chief Nuclear Medicine Technologist Name Role Phone Jaquelinelesly Le YUEN Primary Care Physician Encounter [facility] Date(s): 08/08/23 - 08/09/[address] [address]- Discharge Disposition: A-D/C Home Attending Physician: Karl Bryan DO Admitting Physician: Eliu Simon MD Referring Physician: Eliu Simon MD Allergies, Adverse Reactions, Alerts No Known Medication Allergies Medications Acetaminophen 325 mg 2 tabs, Rectally, Every 4 hours, PRN as needed for fever, not to exceed 3000 mg/day, 0 Refills, Maintenance, 08/09/23 11:35:00 EST, Partial fill upon patient request if the prescription is fora schedule II opioid drug. Start Date: 08/09/23 Status: Ordered Acetaminophen 325 mg 2 tabs, By Mouth, 4 times a day, PRN Pain , Moderate, not to exceed 3000 mg/day, 0 Refills, Maintenance, 08/09/23 11:37:00 EST, Partial fill upon patient request if the prescription is for a schedule II opioid drug. Start Date: 08/09/23 Status: Ordered Ativan 2 mg oral tablet 1 tablet = 2 mg, By Mouth, 2 times a day, PRN as needed for anxiety, 0 Refills, Maintenance, 08/09/23 11:43:00 EST, Tablet, Partial fill upon patient request if the prescription is for a schedule II opioid drug. Start Date: 08/09/23 Status: Ordered Augmentin 500 mg-125 mg oral tablet 1 tablet, By Mouth, Every 12 hours, for 3 days, # 6 tablet, 0 Refills, Acute 08/12/23 16:58:00 EST,08/09/23 16:58:00 EST, Tablet, Partial fill upon patient request if the prescription is for a schedule II opioid drug. Start Date: 08/09/23 Stop Date: 08/12/23 Status: Ordered bisacodyl 10 mg rectal suppository 1 supp = 10 mg, Rectally, Daily, PRN for constipation, 0 Refills, Maintenance, 08/09/23 11:44:00 EST, Suppository, Partial fill upon patient request if the prescription is for a schedule II opioid drug. Start Date: 08/09/23 Status: Ordered bisacodyl 5 mg oral delayed release tablet 2 tablet = 10 mg, By Mouth, Daily, PRN as needed for constipation, # 20 tablet, 0 Refills, Maintenance, 08/09/23 11:44:00 EST, CR Tablet, Partial fill upon patient request if the prescription is for a schedule II opioid drug. Start Date: 08/09/23 Status: Ordered cetirizine 10 mg oral capsule 1 capsule = 10 mg, By Mouth, Daily, for Antyhistamines, 0 Refills, Maintenance, 08/09/23 11:46:00 EST, Capsule, Partial fill upon patient request if the prescription is for a schedule II opioid drug. Start Date: 08/09/23 Status: Ordered Fleet Enema 1 application, Rectally, Daily, PRN as needed for constipation, 0 Refills, Maintenance, 08/09/23 11:48:00 EST, Partial fill upon patient request if the prescription is for a schedule II opioid drug. Start Date: 08/09/23 Status: Ordered Folic Acid = 1 mg, By Mouth, Daily, 0 Refills, Maintenance, 05/02/19 13:45:51 EDT Start Date: 05/02/19 Status: Ordered gabapentin 100 mg oral capsule 100 mg, Capsule, By Mouth, 08/09/23 15:00:00 EST Start Date: 08/09/23 Stop Date: 08/09/23 Status: Completed gabapentin 100 mg oral capsule 100 mg, 1, capsule, By Mouth, 3 times a day, Refills 0, Maintenance, 08/09/23 12:02:00 EST, Partialfill upon patient request if the prescription is for a schedule II opioid drug. Start Date: 08/09/23 Status: Ordered hydrOXYzine pamoate 50 mg oral capsule 1 capsule = 50 mg, By Mouth, 2 times a day, PRN as needed for anxiety, 0 Refills, Maintenance, 08/09/23 11:51:00 EST, Capsule, Partial fill upon patient request if the prescription is for a schedule II opioid drug. Start Date: 08/09/23 Status: Ordered lansoprazole 30 mg oral enteric coated capsule 1 capsule = 30 mg, By Mouth, Daily, # 30 capsule, 0 Refills, Maintenance, 08/09/23 11:52:00 EST, ECCapsule, Partial fill upon patient request if the prescription is for a schedule II opioid drug. Start Date: 08/09/23 Status: Ordered metoprolol 25 mg oral tablet, extended release 25 mg, XL Tablet, By Mouth, 08/09/23 9:00:00 EST Start Date: 08/09/23 Stop Date: 08/09/23 Status: Completed metoprolol 25 mg oral tablet, extended release 1 tablet = 25 mg, By Mouth, Daily, # 90 tablet, 2 Refills, Maintenance, 10/03/14 15:38:41, ER Tablet, 1 tablet By Mouth Daily,x90 days Start Date: 10/03/14 Stop Date: 06/30/15 Status: Ordered naltrexone 50 mg oral tablet 1 tablet = 50 mg, By Mouth, Daily, 0 Refills, Maintenance, 08/09/23 11:54:00 EST, Tablet, Partial fill upon patient request if the prescription is for a schedule II opioid drug. Start Date: 08/09/23 Status: Ordered ondansetron 4 mg oral tablet 1 tablet = 4 mg, By Mouth, Every 8 hours, PRN Nausea & Vomiting, # 10 tablet, 0 Refills, Maintenance, 08/09/23 11:56:00 EST, Tablet, Partial fill upon patient request if the prescription is for aschedule II opioid drug. Start Date: 08/09/23 Status: Ordered thiamine 100 mg oral tablet 100 mg, 1, tablet, By Mouth, Daily, Refills 0, Maintenance, 08/09/23 11:57:00 EST, Partial fill upon patient request if the prescription is for a schedule II opioid drug. Start Date: 08/09/23 Status: Ordered venlafaxine 150 mg oral tablet, extended release 1 tablet = 150 mg, By Mouth, Daily, 0 Refills, Maintenance, 08/09/23 11:58:00 EST, ER Tablet, Partial fill upon patient request if the prescription is for a schedule II opioid drug. Start Date: 08/09/23 Status: Ordered Vitamin D2 = 1,250 mcg, By Mouth, Every Monday, 0 Refills, Maintenance, 08/09/23 11:59:00 EST, Partial fill upon patient request if the prescription is for a schedule II opioid drug. Start Date: 08/09/23 Status: Ordered Problem List Condition Confirmation Course Effective Dates Status Health St atus Informant Urinary incontinence Confirmed Active Results Orders for Microbiology Reports Name Date Blood Culture 08/08/23 Blood Culture #2 08/08/23 Urine Culture (URINE CULTURE) 08/08/23 Microbiology Reports TEST:Blood Culture STATUS:Unauthenticated BODY SITE: SOURCE:Blood COLLECTED DATE/TIME:08/08/23 12:35 PM Blood Culture SPECIMEN DESCRIPTION : BLOOD LAC SPECIAL REQUESTS : NONE CULTURE : NO GROWTH AFTER 24 HOURS REPORT STATUS : PRELIMINARY REPORT TEST:Blood Culture, Second Order STATUS:Unauthenticated BODY SITE: SOURCE:Blood COLLECTED DATE/TIME:08/08/23 12:35 PM Blood Culture, Second Order SPECIMEN DESCRIPTION : BLOOD L ARM SPECIAL REQUESTS : NONE CULTURE : NO GROWTH AFTER 24 HOURS REPORT STATUS : PRELIMINARY REPORT TEST:Urine Culture STATUS:Unauthenticated BODY SITE: SOURCE:URINE COLLECTED DATE/TIME:08/08/23 11:22 AM Urine Culture SPECIMEN DESCRIPTION : URINE CLEAN CATCH/MIDSTREAM SPECIAL REQUESTS : NONE CULTURE : >100,000 COL/ML PROTEUS MIRABILIS This isolate was identified using Maldi-TOF system REPORT STATUS : PRELIMINARY REPORT Radiology Reports * Exam Date Time Procedure Performing Provider Status 08/08/23 7:54 PM US RUQ Deery , Ester; Auth (Ve rified) Notes: (US RUQ) Reason For Exam: Biliary Obstruction RESULT: US RUQ US RUQ Reason: Biliary Obstruction; Clinical Question(s): Biliary Obstruction COMPARISON: None. FINDINGS: Overall limited study due to body habitus and overlying bowel gas. Liver: Diffusely echogenic parenchyma. No suspicious lesion. Limited evaluation for focal lesion. Hepatopetal flow of the main portal vein. Gallbladder: Possible small amount of sludge. Wall thickening measuring up to 6 mm. No pericholecystic fluid. The welt rougher indicates the absence of a Darden sign. Biliary Tree: No intrahepatic or extrahepatic bile duct dilation is identified. Common duct measures: 0.5 cm. Pancreas: Obscured by overlying bowel gas. Right kidney: 10.3 cm in length. Normal parenchymal echotexture and thickness. No hydronephrosis, stone or mass. IMPRESSION: Gallbladder wall thickening and sludge but absence of a Darden sign. Nondiagnostic evaluation of the pancreas. Hepatic steatosis. WSN: [id number] Ordering Physician: Elroy Mccoy Dictated By: Austin Houser MD Dictated Date/Time: 08/08/23 8:13 pm Reviewed By: Austin Houser MD Signed By: Austin Houser MD Signed Date/Time: 08/08/23 8:13 pm Transcribed By: DIXON Transcribed Date/Time: 08/08/23 8:11 pm * Exam Date Time Procedure Performing Provider Status 08/08/23 1:12 PM Chest Portable Ekaterina Quiroz; Auth (Verified) Notes: (Chest Portable) Reason For Exam: Shortness of Breath RESULT: Chest Portable Chest Portable Hx of Present Illness: ? toxix ingestion, 200mg trazadone yesterday. needs medical clearance; Reason: Shortness of Breath; Clinical Question(s): CHF COMPARISON: November 28, 2014. FINDINGS: LINES AND TUBES: None. LUNGS AND PLEURA: Clear lungs. Normal pulmonary vascularity. No pleural effusion. No pneumothorax. HEART, MEDIASTINUM AND MIGNON: Heart is normal in size. Normal mediastinal and hilar contour. BONES AND SOFT TISSUES: No acute abnormality. IMPRESSION: No acute abnormality. WSN: [id number] Ordering Physician: Jose Juan Colvin Dictated By: Moises Jolley MD Dictated Date/Time: 08/08/23 1:34 pm Reviewed By: Moises Jolley MD Signed By: Moises Jolley MD Signed Date/Time: 08/08/23 1:34 pm Transcribed By: DIXON Transcribed Date/Time: 08/08/23 1:33 pm * Exam Date Time Procedure Performing Provider Status 08/08/23 12:[address] Head/Brain W/O Contrast Fernando Larson; Auth (Verified) Notes: (CT Head/Brain W/O Contrast) Reason For Exam: Other: RESULT: CT Head/Brain W/O Contrast CT Head/Brain W/O Contrast INDICATION: Hx of Present Illness: ? toxix ingestion, 200mg trazadone yesterday. needs medical clearance; Reason: Other:; Clinical Question(s): Hematoma; altered mental status TECHNIQUE: Noncontrast head CT using axial technique and reconstructed in axial and coronal planes.Iterative reconstruction techniques are used to optimize dose and image quality. CTDIvol Head: 43.60 mGy, DLP Head: 812 mGy*cm. COMPARISON: None. FINDINGS: Instructor Modeling view findings, lines and tubes: None. BRAIN AND EXTRA-AXIAL SPACES: No parenchymal hemorrhage, midline shift, or mass effect. Ybarra-white matter differentiation is wellpreserved. No acute infarct. Negative insular ribbon sign. Atherosclerotic vascular calcification of the carotid arteries but negative hyperdense vessel sign. Minimal diffuse prominence of the ventricles and sulci consistent with parenchymal volume loss. No white matter lesions. No subarachnoid hemorrhage. No subdural or epidural collection. CALVARIUM, SKULL BASE, AND SOFT TISSUES: No fractures or suspicious bony lesions. The paranasal sinuses and mastoid air cells are clear. Visualized orbits and globes are intact. The extracranial soft tissues are unremarkable. IMPRESSION: No acute intracranial pathology. WSN: [id number] Ordering Physician: Jose Juan Colvin Dictated By: Gianna De La Rosa MD Dictated Date/Time: 08/08/23 12:50 p Reviewed By: Gianna De La Rosa MD Signed By: Gianna De La Rosa MD Signed Date/Time: 08/08/23 12:50 pm Transcribed By: DIXON Transcribed Date/Time: 08/08/23 12:37 pm Vital Signs Most recent to oldest [Reference Range]: 1 2 3 Height 163 cm (08/09/23 4:00 PM) 163 cm (08/09/23 11:47 AM) 163 cm (08/09/23 7:54 AM) Weight 63.9 kg (08/08/23 4:42 PM) 63.9 kg (08/08/23 4:20 PM) 62.5 kg (08/08/23 11:28 AM) Oxygen Saturation [94-100 %] 100 % (08/09/23 4:00 PM) 100 % (08/09/23 11:47 AM) 100 % (08/09/23 7:54 AM) Pulse Rate [55-90 bpm] 81 bpm (12/6/23 4:00 PM) 86 bpm (08/09/23 11:47 AM) 89 bpm (08/09/23 8:49 AM) Body Mass Index [18.5-24.99 kg/m2] 24.05 kg/m2 (08/08/23 4:42 PM) 24.05 kg/m2 (08/08/23 4:20 PM) Blood Pressure [90-138/55-84 mm Hg] 144/81mm Hg 1 *H* (08/09/23 4:00 PM) 131/66mm Hg (08/09/23 11:47 AM) 120/67mm Hg (08/09/23 8:49 AM) Respiratory Rate [16-30 br/min] 16 br/min (08/09/23 4:49 PM) 18 br/min (08/09/23 4:00 PM) 17 br/min (08/09/23 3:56 PM) Temperature [96.8-100.4 DegF] 97.5 DegF (08/09/23 4:00 PM) 98.0 DegF (08/09/23 11:47 AM) 97.7 DegF (08/09/23 7:54 AM) Liters per Minute 0 L/min (08/09/23 11:47 AM) Mode of Delivery (Oxygen) Room air (08/09/23 4:00 PM) Room air (08/09/23 11:47 AM) Room air (08/09/23 7:54 AM) Blood pressure sites Arm, left (08/09/23 4:00 PM) Arm, left (08/09/23 11:47 AM) Arm, right (08/09/23 7:54 AM) Temperature Route Oral (08/09/23 4:00 PM) Oral (08/09/23 11:47 AM) Oral (08/09/23 7:54 AM) Dry Weight 63.9 kg (08/08/23 4:42 PM) 62.5 kg (08/08/23 11:28 AM) Weight Obtained Via Bed scale (08/08/23 4:20 PM) Patient/family stated (08/08/23 11:28 AM) Dry Weight Obtained Via Patient/family stated (08/08/23 11:28 AM) 1Result Comment: Reported PT's BP to YOANNA Mendoza Social History Social History Type Response Smoking Status Never smoker entered on: 01/15/15 Sex History and physical note * Elroy Mccoy NP: PERFORM Event Display: [facility] Authored Date: [id number] Patient: ??VAN STAFFORD ? Age:??63 Years?Sex:??Female?:??1960?? Chief Complaint/Reason for Consultation toxic ingestion History of Present Illness This is a 63-year-old female with past medical history of hypertension, alcohol abuse, GERD who presents to the emergency department with drowsiness.?Patient is a poor historian.?? Reportedly [facility] staff found her to be more lethargic than normal.?? Patient attributes this to lack of sleep recently.?? Reportedly a friend brought her into 200 mg of trazodone last night to help her sleep.?? States she has had a fever from day 1 and does note some mild lower abdominal discomfort, however there is no pain with palpation for the past several weeks. In the ED CT head shows no acute intracranial pathology.?? Chest x-ray shows no acute abnormality.?? Labs show no leukocytosis, alk phos 110, T. bili 2.1, lactate 1.5, TSH 1.3, ammonia 46, flu/RSV/COVID-19 negative, UA with greater than 182 WBCs, 3+ leukocytes and negative nitrites.?? Afebrile saturating 97% on room air with stable blood pressures and pulse. On exam patient is resting comfortably in her stretcher.?? Heart is regular rate and rhythm.?? Lungs are clear to auscultation bilaterally.?? Abdomen is soft nontender nondistended.?? No peripheral edema.?? She denies chest pain, cough, dyspnea, nausea, vomiting, diarrhea, dysuria. Review of Systems General: Good appetite.?? ?fever Skin: Denies new rash, sores, lumps. HEENT: Denies vision changes, dizziness, headache, cold symptoms. Cardiac: Denies chest pain?? Vascular: Denies edema Pulmonary: Denies SOB, cough, wheeze. GI: ?Abdominal pain.??Denies?? nausea, vomiting, diarrhea, constipation. : Denies dysuria Neurological: Denies weakness, dizziness, syncope. Psych: Appropriate affect and mood. Engages appropriately. All other systems reviewed and negative except as noted in HPI?? Objective Vital Signs?? Temperature: 98.1 DegF (08/08/23 11:28:00) Temperature Route: Oral (08/08/23 11:28:00) Pulse Rate:??94 bpm??High (08/08/23 13:00:00) Respiratory Rate:??14 br/min??Low (08/08/23 13:00:00) Systolic Blood Pressure: 124 mm Hg (08/08/23 13:00:00) Diastolic Blood Pressure: 76 mm Hg (08/08/23 13:00:00) Blood pressure sites: Arm, left (08/08/23 13:00:00) Mean Arterial Pressure: 93 mm Hg (08/08/23 11:28:00) Pulse Pressure: 48 mm Hg (08/08/23 13:00:00) Oxygen Saturation: 96 % (08/08/23 13:00:00) Mode of Delivery (Oxygen): Room air (08/08/23 13:00:00) ? Physical Exam General: Lying comfortably in bed.?? HEENT: Atraumatic, normocephalic. PERRL, EOM grossly intact, nonicteric.?? Neck: Supple, trachea midline.?? Cardiovascular: S1, S2, no MRG. No edema.?? Pulmonary: CTAB, no wheeze, no accessory muscle use. Abdomen: Soft, NT, ND, +BS, no rebound tenderness. Extremities: Moves all extremities.?? Skin: Warm, dry, intact, no rash. Neurological: A&O x3, CN grossly intact. Psychological: Appropriate mood and affect. Assessment/Plan Diagnoses UTI (urinary tract infection) ??(N39.0) ?? Assessment:??63-year-old female with past medical history of hypertension, alcohol abuse, GERD who presents to the emergency department with drowsiness. ?? UTI (urinary tract infection) (N39.0):? Presents with lethargy??according to nursing staff??overnight into this morning. Reportedly a??friend brought her into 100 mg of trazodone for her to sleep as she states she has not??been sleeping well which??she states is her cause of her lethargy.??Does note some mild abdominal discomfort howevershe has no pain with palpation. She also states she has been having a fever?? from day [address] head shows no acute intracranial pathology Chest x-ray shows no acute abnormality Labs show no leukocytosis, Alk phos 110, AST 57, T. bili 2.1, lactate 1.5, flu/RSV/COVID-19 negative, UA with greater than 32 WBCs, 3+ leukocytes and negative nitrites Afebrile saturating 97% on room air with stable blood pressures and pulse Plan Continue ceftriaxone Follow-up blood cultures Follow-up urine cultures Gentle IV fluids Ultrasound right upper quadrant Trend LFTs ?? Chronic stable conditions Neuropathy???continue gabapentin Hypertension???continue metoprolol Anxiety/depression???continue??venlafaxine ?? VTE Prophylaxis:??Lovenox subcu ?? Code Status:??Full code Histories Allergies Allergies ?(Active and Proposed Allergies Only) No Known Medication Allergies? (Severity: Unknown severity, Onset: Unknown) ? Past Medical History/Problem List Active Problems??(1) Urinary incontinence ? Past Surgical History No surgery history documented. ? Social History Alcohol Details:??Use: Never. Employment/School Details:??Status: Unemployed. Exercise Details:??Self assessment: Good condition. Home/Environment Details:??Living situation: Home/Independent. ??Lives with: Significant other. Nutrition/Health Details:??Diet: Regular. Sexual Details:??Sexually involved in last 6 months: Yes. ??Sexual orientation: Heterosexual. ??Gender identity: Female. Substance Abuse Details:??Use: Never. Tobacco Details:??Never smoker Details:??Never smoker ? Family History Mother: Diabetes ?10-JAN-2015 22:16:31<$> Father: Heart attack ? Medications Home Medications Folic Acid?Daily Metoprolol (metoprolol 25 mg oral tablet, extended release)?1?tab(s)?25?Milligram?ByMouth?Daily?for 90?Days Miscellaneous Rx (oratec)?25?Milligram?Oral?Daily Omeprazole?40?Milligram?By Mouth?Daily Venlafaxine (Effexor)?50?Milligram?By Mouth ? Results Recent Labs BLOOD COUNT & DIFF WBC 8.5 k/mm3 ()?? 08/08/2023 11:48 RBC 3.25 m/mm3 (Low)?? 08/08/2023 11:48 Hgb 11.5 Gm/dL (Low)?? 08/08/2023 11:48 Hct 34.4 % (Low)?? 08/08/2023 11:48 MCV 105.8 femtoliters (High)?? 08/08/2023 11:48 MCH 35.4 pg (High)?? 08/08/2023 11:48 MCHC 33.4 g/dL ()?? 08/08/2023 11:48 Platelet Count 233 k/mm3 ()?? 08/08/2023 11:48 RDW-SD 52.3 femtoliters (High)?? 08/08/2023 11:48 MPV 9.7 femtoliters ()?? 08/08/2023 11:48 Nucleated RBC (Automated) 0.0 #/100 WBC'S ()?? 08/08/2023 11:48 Abs. NRBC 0.0 k/mm3 ()?? 08/08/2023 11:48 Abs. Neut 5.8 k/mm3 ()?? 08/08/2023 11:48 Abs. Lymph 1.7 k/mm3 ()?? 08/08/2023 11:48 Abs. [place] 0.8 k/mm3 ()?? 08/08/2023 11:48 Abs. Eo 0.2 k/mm3 ()?? 08/08/2023 11:48 Abs. Baso 0.1 k/mm3 ()?? 08/08/2023 11:48 Neut % 68.2 % ()?? 08/08/2023 11:48 Lymph % 20.3 % ()?? 08/08/2023 11:48 [place] % 8.8 % ()?? 08/08/2023 11:48 Eos % 1.9 % ()?? 08/08/2023 11:48 Baso % 0.6 % ()?? 08/08/2023 11:48 Imm Gran 0.2 % ()?? 08/08/2023 11:48 Abs. Imm Gran 0.0 k/mm3 ()?? 08/08/2023 11:48 ?? CHEM GENERAL Sodium 142 mmol/L ()?? 08/08/2023 11:48 Potassium 3.7 mmol/L ()?? 08/08/2023 11:48 Chloride 107 mmol/L ()?? 08/08/2023 11:48 Bicarbonate Level 24 mmol/L ()?? 08/08/2023 11:48 Anion Gap 11 ()?? 08/08/2023 11:48 Glucose Level 131 mg/dL (High)?? 08/08/2023 11:48 BUN 7 mg/dL (Low)?? 08/08/2023 11:48 Creatinine-Blood 0.5 mg/dL ()?? 08/08/2023 11:48 Estimated GFR Creatinine 102 ML/MIN/1.73 M2 ()?? 08/08/2023 11:48 Calcium 9.3 mg/dL ()?? 08/08/2023 11:48 Magnesium 1.6 mg/dL ()?? 08/08/2023 11:48 Protein, Total 6.1 Gm/dL (Low)?? 08/08/2023 11:48 Albumin 3.2 Gm/dL (Low)?? 08/08/2023 11:48 AG Ratio 1.1 ()?? 08/08/2023 11:48 Alkaline Phosphatase 110 units/L (High)?? 08/08/2023 11:48 AST (SGOT) 57 units/L (High)?? 08/08/2023 11:48 ALT (SGPT) 18 units/L ()?? 08/08/2023 11:48 Bilirubin, Total 2.1 mg/dL (High)?? 08/08/2023 11:48 Lactate 1.5 mmol/L ()?? 08/08/2023 12:41 ?? ENDOCRINE/TUMOR MARKER TSH 1.30 uIU/mL ()?? 08/08/2023 11:48 ?? FLUID STUDIES Hold Other SPECIMEN DISCARDED AFTER 1 WEEK ()?? 08/08/2023 11:48 ?? HEME OTHER Hold Blue Top SPECIMEN DISCARDED AFTER 4 HOURS. ()?? 08/08/2023 11:48 ?? MISC. CHEMISTRY Ammonia, Venous 46 ??mole/L ()?? 08/08/2023 11:48 Hold Green Top SPECIMEN DISCARDED AFTER 1 WEEK ()?? 08/08/2023 12:41 Hold Gel Top SPECIMEN DISCARDED AFTER 1 WEEK ()?? 08/08/2023 11:48 ?? TOXICOLOGY/TDM Ethanol, Serum or Plasma NONE DETECTED mg/dL ()?? 08/08/2023 11:48 ?? UA/URINALYSIS Appear/Color, Urine YELLOW ()?? 08/08/2023 11:22 Clarity SL.CLOUDY (Abnormal)?? 08/08/2023 11:22 Specific [place], Urine 1.015 ()?? 08/08/2023 11:22 pH, Urine 6.5 ()?? 08/08/2023 11:22 Albumin, Urine NEGATIVE (N)?? 08/08/2023 11:22 Glucose, Urine NEGATIVE (N)?? 08/08/2023 11:22 Ketones, Urine NEGATIVE (N)?? 08/08/2023 11:22 Bilirubin, Urine NEGATIVE (N)?? 08/08/2023 11:22 Hemoglobin, Urine TRACE (Abnormal)?? 08/08/2023 11:22 Nitrite, Urine NEGATIVE (N)?? 08/08/2023 11:22 Leukocyte, Urine 3+ (Abnormal)?? 08/08/2023 11:22 Urobilinogen 4 mg/dL (Abnormal)?? 08/08/2023 11:22 WBC's, Urine >182 /HPF (High)?? 08/08/2023 11:22 RBC's, Urine 3 /HPF ()?? 08/08/2023 11:22 Bacteria MODERATE HPF (Abnormal)?? 08/08/2023 11:22 Squamous Epith <1 /HPF ()?? 08/08/2023 11:22 Mucus SLIGHT /LPF ()?? 08/08/2023 11:22 Hold Urine Culture Testing available 48 hours from time of collection. ()?? 08/08/2023 11:22 ?? URINE OTHER Est Creatinine Clearance 98.87 mL/min ()?? 08/08/2023 12:11 ?? VIROLOGY Influenza A PCR NEGATIVE ()?? 08/08/2023 11:22 Influenza B PCR NEGATIVE ()?? 08/08/2023 11:22 RSV PCR NEGATIVE ()?? 08/08/2023 11:22 COVID-19 PCR Specimen Source NASAL ()?? 08/08/2023 11:22 COVID-19 PCR Result NEGATIVE ()?? 08/08/2023 11:22 ? Imaging(s) ?CT Head/Brain W/O Contrast ?? 08/08/2023 12:27??by Gianna De La Rosa MD ?IMPRESSION: ?? No acute intracranial pathology. ?Chest Portable ?? 08/08/2023 13:12??by Moises Jolley MD ?IMPRESSION: ?? No acute abnormality. ? EKG study * Event Display: ECG 12-Lead Authored Date: Please click on pdf link to open report * Event Display: ECG 12-Lead Authored Date: Ventricular Rate: 90 BPM Atrial Rate: 90 BPM P-R Interval: 158 ms QRS Duration: 64 ms Q-T Interval: 368 ms QTC Calculation(Bazett): 450 ms P [place]: 2 degrees R [place]: -4 degrees T [place]: -9 degrees Normal sinus rhythm Old inferior infarct Poor R wave progression V1 to V3 Nonspecific T wave changes Abnormal ECG When compared with ECG of 28-NOV-2014 12:21, Inferior infarct is now Present Nonspecific T wave changes now present Confirmed by Juventino Chan ([id number]) on 08/08/2023 1:36:21 PM [place]: Juventino Chan [facility] Progress note * Kelly Lopez RN: MODIFY, MODIFY, SIGN, VERIFY, MODIFY, MODIFY, PERFORM, MODIFY Event Display: [facility] Authored Date: Patient: VAN STAFFORD Age: 63 years Sex: Female : 1960 Associated Diagnoses: None Author: Kelly Lopez RN Findings Problem Related to Alteration in Psychosocial : Alteration in Psychosocial Function/new 08/09/2023 9:00 EST Alteration in Psychosocial Related to Other: AMS Goals & Outcomes, Psychosocial Psychosocial support will be provided to Pt/S.O. as needed, Pt will identify stressors leading up to event, Pt will state importance of adhering to medication regime, Pt/caregiver will be offered appropriate resources & support, Pt/caregiver will express feelings/needs/fears /concerns, Pt/caregiver will maintain/obtain psychological stability, Pt/caregiver will participate in coping skill counseling Interventions, Psychosocial Assess psychosocial needs, Assess readiness to learn needed lifestyle changes, Assess/monitor level of consciousness, Collaborate with provider for psychiatric consult, Evaluate resources & support system available to pt, Offer support; discuss coping strategies, Provide a calm, supportive environment, Provide chances to express concerns/emotions/expectations, Provide info on community resources for education, support, Provide information about illness and recovery, Provide verbal limits if pt's behavior escalates BH Goals/Interventions, Psychosocial Yes Psychosocial, Problem Start 08/08/2023 17:10 Reviewed Plan with, Psychosocial Patient Patient Progression, Psychosocial Pt progressing according to plan . Narrative/Incidental [id number] Pt admitted for AMS, UTI. Pt A+O to self. Pt reports 10/10 leg pain, gabapanetin and tylenol given with no relief, pt resting in bed, appears comfortable. Pt ambulating to BR w/ standby. IVfluid infusing, ceftriaxone infused as ordered. Scabs BLE, pt frequently picking at scabs, bandaidsapplied. Fall risk protocol followed. Bed alarmed. Pt d/c back to facility via EMS.IV removed. . Discharge Information Functional Assessment Personal hygiene: assist. Feeding ability: self. Standing ability: by self. Mobility assistance: ambulate, assist of 1. * Desiree Victoria RN: VERIFY, PERFORM, SIGN Event Display: Progress Note Hospital Authored Date: Patient: VAN STAFFORD Age: 63 years Sex: Female : 1960 Associated Diagnoses: None Author: Desiree Victoria RN Findings Nursing Data Vital Signs : VITAL SIGNS SECTION 08/09/2023 4:45 EST Temperature 97.7 DegF Temperature Route Oral Pulse Rate 96 bpm H Respiratory Rate 20 br/min Systolic Blood Pressure 122 mm Hg Diastolic Blood Pressure 76 mm Hg Blood pressure sites Arm, left Mean Arterial Pressure 91 mm Hg Pulse Pressure 46 mm Hg Oxygen Saturation 100 % Mode of Delivery (Oxygen) Room air 08/09/2023 0:22 EST Temperature 97.9 DegF Temperature Route Oral Pulse Rate 93 bpm H Respiratory Rate 20 br/min Systolic Blood Pressure 138 mm Hg Diastolic Blood Pressure 79 mm Hg Blood pressure sites Arm, right Mean Arterial Pressure 99 mm Hg Pulse Pressure 59 mm Hg Oxygen Saturation 98 % Mode of Delivery (Oxygen) Room air 08/08/2023 19:06 EST Temperature 98.5 DegF Temperature Route Oral Pulse Rate 90 bpm Respiratory Rate 18 br/min Systolic Blood Pressure 117 mm Hg Diastolic Blood Pressure 72 mm Hg Blood pressure sites Arm, right Mean Arterial Pressure 87 mm Hg Pulse Pressure 45 mm Hg Oxygen Saturation 100 % Mode of Delivery (Oxygen) Room air . Narrative/Incidental Patient is alert to self. Unsure about rest of orientation status as patient was reading off the white board. Reports burning in feet and has received APAP twice overnight. No edema noted, lung sounds clear, positive bowel sounds. Remains on LR at 75mL/hr. Stand by assist out of bed, ambulating to bathroom. Patient picking at scabs to legs, making herself bleed. Band-Aids applied to bleeding areas. Call kramer left within reach, bed alarm on for safety. Vital signs stable. . * Kelly Lopez RN: PERFORM, MODIFY, SIGN, VERIFY Event Display: Progress Note Hospital Authored Date: [id number] Patient: VAN STAFFORD Age: 63 years Sex: Female : 1960 Associated Diagnoses: None Author: Kelly Lopez RN Findings Problem Related to Alteration in Psychosocial : Alteration in Psychosocial Function/new 08/08/2023 17:00 EST Alteration in Psychosocial Related to Other: AMS Goals & Outcomes, Psychosocial Psychosocial support will be provided to Pt/S.O. as needed, Pt will identify stressors leading up to event, Pt will state importance of adhering to medication regime, Pt/caregiver will be offered appropriate resources & support, Pt/caregiver will express feelings/needs/fears /concerns, Pt/caregiver will maintain/obtain psychological stability, Pt/caregiver will participate in coping skill counseling Interventions, Psychosocial Assess psychosocial needs, Assess readiness to learn needed lifestyle changes, Assess/monitor level of consciousness, Evaluate resources & support system available to pt, Offer support; discuss coping strategies, Provide a calm, supportive environment BH Goals/Interventions, Psychosocial Yes Psychosocial, Problem Start 08/08/2023 17:10 Reviewed Plan with, Psychosocial Patient Patient Progression, Psychosocial Plan Initiation . Narrative/Incidental Pt admitetd to spoke 3 at 1600 for AMS, UTI. Pt alert to self, unable to assess alcohol hx in adultassessment. Scattered scabs on BLE, pt picking at scabs, bandaids applied to prevent picking. Pt 1 assist to commode. Attemtped to complete Med Rec, called [facility], unable to get in contact with nurse. Fall risk protocol followed - Bed alarmed. . Note * Janeen Barrios RN: PERFORM Event Display: Discharge/Transfer Note Hospital Authored Date: [id number] Nursing Discharge Note Entered On: 08/09/2023 19:34 EST Performed On: 08/09/2023 19:34 EST by Janeen Barrios RN Nursing Discharge Note 2 Discharge Time : 08/09/2023 19:34 EST Discharge Level of Care at Discharge : prison facility Discharge Nursing Homes/Rehab Facilities : [place] [address] Patient Left Unit Via : Wheelchair Patient Accompanied Off Unit with : Ambulance/Chair Van Personnel Handover Given to Transport Personnel : Yes DC Instructions Provided & Signed by Pt : Yes Patient Understands D/C Instructions : Yes Patient Instructions Discharge Signed : Yes Did Pt have Specialty Bed or Wound Vac : No Janeen Barrios RN - 08/09/2023 19:34 EST * Karl Bryan DO: PERFORM, MODIFY, MODIFY Event Display: Discharge/Transfer Note Hospital Authored Date: [id number] Patient: ??VAN STAFFORD ? Age:??63 Years?Sex:??Female?:??1960?? Patient Information Discharge Location: [facility] Primary Care Physician: Le Haddad DO Admit Date/Time: 08/08/23 11:03 Discharge Disposition Discharge Disposition: ?? Discharge Diagnosis UTI (urinary tract infection) (N39.0) acute toxic encephalopathy secondary to trazadone ?? _ Discharge Medications Acetaminophen?325 mg 2 tabs?Rectally?Every 4 hours?as needed?as needed for fever?not to exceed 3000 mg/day Acetaminophen?325 mg 2 tabs?By Mouth?4 times a day?as needed?Pain , Moderate?not to exceed 3000 mg/day Amoxicillin-Clavulanate (Augmentin 500 mg-125 mg oral tablet)?1?tab(s)?By Mouth?Every 12 hours?for 3?Days Bisacodyl (bisacodyl 10 mg rectal suppository)?1?suppository(ies)?10?Milligram?Rectal ly?Daily?as needed?for constipation Bisacodyl (bisacodyl 5 mg oral delayed release tablet)?2?tab(s)?10?Milligram?By Mouth?Daily?as needed?as needed for constipation Cetirizine (cetirizine 10 mg oral capsule)?1?capsule?10?Milligram?By Mouth?Daily?for Antyhistamines Ergocalciferol (Vitamin D2)?1,250?Microgram?By Mouth?Every Monday Folic Acid?1?Milligram?By Mouth?Daily Gabapentin (gabapentin 100 mg oral capsule)?100?Milligram?1?capsule?By Mouth?3 times a day HydrOXYzine (hydrOXYzine pamoate 50 mg oral capsule)?1?capsule?50?Milligram?By Mouth?2 times a day?as needed?as needed for anxiety Lansoprazole (lansoprazole 30 mg oral enteric coated capsule)?1?capsule?30?Milligram?By Mouth?Daily Lorazepam (Ativan 2 mg oral tablet)?1?tab(s)?2?Milligram?By Mouth?2 times a day?as needed?as needed for anxiety Metoprolol (metoprolol 25 mg oral tablet, extended release)?1?tab(s)?25?Milligram?ByMouth?Daily?for 90?Days Naltrexone (naltrexone 50 mg oral tablet)?1?tab(s)?50?Millig[place]?By Mouth?Daily Ondansetron (ondansetron 4 mg oral tablet)?1?tab(s)?4?Milligram?By Mouth?Every 8 hours?as needed?Nausea & Vomiting Sodium Biphosphate-Sodium Phosphate (Fleet Enema)?1?cristel?Rectally?Daily?as needed?as needed for constipation Thiamine (thiamine 100 mg oral tablet)?100?Milligram?1?tablet?By Mouth?Daily Venlafaxine (venlafaxine 150 mg oral tablet, extended release)?1?tab(s)?150?Milligram?By Mouth?Daily ? Allergies Allergies ?(Active and Proposed Allergies Only) No Known Medication Allergies? (Severity: Unknown severity, Onset: Unknown) ? Hospital Course This is a 63-year-old female??with a history of alcohol use disorder, GERD, hypertension who presented to the emergency department after being found??confused and more lethargic at her [facility] I spoke today on the day of discharge with Bee,??RN over at her??usp. ??She thinks the patient took several doses of trazodone??that were brought in from an outside source.?? She noted that the patient had been described as confused there and hearing voices and acting strange.?? She had a medical workup in the emergency department which showed??pyuria. ??The patient was not reliable inher history??to say whether she was having any urine symptoms and she was started on ceftriaxone She did not have any clinical sepsis Lactate was 1.5 and other labs were unremarkable I saw her on hospital day #1??and she was ambulating in her room and interactive and appropriate Urine culture??had not been sent so I added it on She denies any flank pain and there is no fever or leukocytosis Given the difficulty in providing context history shields??and given the acute confusion and significant pyuria??I would complete a couple of more days of oral antibiotic She will be discharged on Augmentin??as we do not have??culture and sensitivity back She is back to her usual mental status I called and spoke with Bee the nurse over at??the usp to??verify her medicine??on discharge ?? She did have a right upper quadrant ultrasound which showed some sludge but no evidence of cholecystitis On day of discharge there is absolutely no abdominal pain and she is tolerating diet ?? She also had a very precipitous drop in her platelet count down to 112 this morning However this is likely due to platelet clumping A repeat citrated??tube showed a platelet count of almost 190,000 She has no purpura or bleeding Objective Assessment and Plan Discharge Planning:? Measurements?? Height: 163 cm (08/09/23) Weight: 63.9 kg (08/08/23) Dry Weight: 63.9 kg (08/08/23) Body Mass Index: 24.05 kg/m2 (08/08/23) ? Vital Signs?? Temperature: 97.5 DegF (08/09/23 16:00:00) Temperature Route: Oral (08/09/23 16:00:00) Pulse Rate: 81 bpm (08/09/23 16:00:00) Respiratory Rate: 18 br/min (08/09/23 16:00:00) Systolic Blood Pressure:??144 mm Hg??High (08/09/23 16:00:00) Diastolic Blood Pressure: 81 mm Hg (08/09/23 16:00:00) Blood pressure sites: Arm, left (08/09/23 16:00:00) Mean Arterial Pressure: 102 mm Hg (08/09/23 16:00:00) Pulse Pressure: 63 mm Hg (08/09/23 16:00:00) Oxygen Saturation: 100 % (08/09/23 16:00:00) Liters per Minute: 0 L/min (08/09/23 11:47:00) Mode of Delivery (Oxygen): Room air (08/09/23 16:00:00) Early Warning Score: 8 (08/09/23 16:09:30) ? . Physical Exam Alert and oriented x 3 in no distress Regular rate and rhythm with no rub Abdomen soft nontender nondistended No CVAT Lungs clear bilateral Lower extremities warm globally perfused Cranial nerves II through XII intact 5 out of 5 power in the upper and lower extremities bilateral She has a few scratch scwhab on the lower extremities??but no surrounding erythema or drainage Pending Results Add On Lab Order ordered on 08/08/2023 Add On Lab Order ordered on 08/09/2023 Blood Culture ordered on 08/08/2023 Blood Culture #2 ordered on 08/08/2023 Urine Culture ordered on 08/08/2023 Patient Instructions You came to the hospital with??confusion. ??The confusion is likely due to taking trazodone pills. ??Please do not take any medication that is not prescribed for you.You also may have a urine infection and were treated with an intravenous antibiotic.?? I would like you to take a couple more days ofa pill antibiotic??and monitor for any urinary symptoms. Home Health Face to Face ^[facility] Results Discharge Labs BLOOD COUNT & DIFF WBC 7.3 k/mm3 ()?? 08/09/2023 05:20 RBC 3.24 m/mm3 (Low)?? 08/09/2023 05:20 Hgb 11.8 Gm/dL ()?? 08/09/2023 05:20 Hct 35.1 % (Low)?? 08/09/2023 05:20 MCV 108.3 femtoliters (High)?? 08/09/2023 05:20 MCH 36.4 pg (High)?? 08/09/2023 05:20 MCHC 33.6 g/dL ()?? 08/09/2023 05:20 Platelet Count 112 k/mm3 (Low)?? 08/09/2023 05:20 RDW-SD 53.7 femtoliters (High)?? 08/09/2023 05:20 MPV 11.1 femtoliters ()?? 08/09/2023 05:20 Nucleated RBC (Automated) 0.0 #/100 WBC'S ()?? 08/09/2023 05:20 Abs. NRBC 0.0 k/mm3 ()?? 08/09/2023 05:20 Abs. Neut 4.2 k/mm3 ()?? 08/09/2023 05:20 Abs. Lymph 2.2 k/mm3 ()?? 08/09/2023 05:20 Abs. [place] 0.8 k/mm3 ()?? 08/09/2023 05:20 Abs. Eo 0.1 k/mm3 ()?? 08/09/2023 05:20 Abs. Baso 0.1 k/mm3 ()?? 08/09/2023 05:20 Neut % 57.7 % ()?? 08/09/2023 05:20 Lymph % 29.3 % ()?? 08/09/2023 05:20 [place] % 10.4 % ()?? 08/09/2023 05:20 Eos % 1.8 % ()?? 08/09/2023 05:20 Baso % 0.7 % ()?? 08/09/2023 05:20 Imm Gran 0.1 % ()?? 08/09/2023 05:20 Abs. Imm Gran 0.0 k/mm3 ()?? 08/09/2023 05:20 Citrated Platelet Count 189 k/mm3 ()?? 08/09/2023 10:56 ? CHEM GENERAL Sodium 142 mmol/L ()?? 08/09/2023 05:20 Potassium 4.1 mmol/L ()?? 08/09/2023 05:20 Chloride 109 mmol/L (High)?? 08/09/2023 05:20 Bicarbonate Level 21 mmol/L (Low)?? 08/09/2023 05:20 Anion Gap 12 ()?? 08/09/2023 05:20 Glucose Level 131 mg/dL (High)?? 08/08/2023 11:48 BUN 6 mg/dL (Low)?? 08/09/2023 05:20 Creatinine-Blood 0.5 mg/dL ()?? 08/09/2023 05:20 Estimated GFR Creatinine 102 ML/MIN/1.73 M2 ()?? 08/09/2023 05:20 Calcium 9.3 mg/dL ()?? 08/08/2023 11:48 Magnesium 1.6 mg/dL ()?? 08/08/2023 11:48 Protein, Total 6.1 Gm/dL (Low)?? 08/08/2023 11:48 Albumin 3.2 Gm/dL (Low)?? 08/08/2023 11:48 AG Ratio 1.1 ()?? 08/08/2023 11:48 Alkaline Phosphatase 110 units/L (High)?? 08/08/2023 11:48 AST (SGOT) 57 units/L (High)?? 08/08/2023 11:48 ALT (SGPT) 18 units/L ()?? 08/08/2023 11:48 Bilirubin, Total 2.1 mg/dL (High)?? 08/08/2023 11:48 Lactate 1.5 mmol/L ()?? 08/08/2023 12:41 ? ENDOCRINE/TUMOR MARKER TSH 1.30 uIU/mL ()?? 08/08/2023 11:48 ? FLUID STUDIES Hold Other SPECIMEN DISCARDED AFTER 1 WEEK ()?? 08/08/2023 11:48 ? HEME OTHER Hold Blue Top SPECIMEN DISCARDED AFTER 4 HOURS. ()?? 08/08/2023 11:48 ? MISC. CHEMISTRY Ammonia, Venous 46 ??mole/L ()?? 08/08/2023 11:48 Hold Green Top SPECIMEN DISCARDED AFTER 1 WEEK ()?? 08/09/2023 10:56 Hold Gel Top SPECIMEN DISCARDED AFTER 1 WEEK ()?? 08/08/2023 11:48 ? TOXICOLOGY/TDM Ethanol, Serum or Plasma NONE DETECTED mg/dL ()?? 08/08/2023 11:48 ? UA/URINALYSIS Appear/Color, Urine YELLOW ()?? 08/08/2023 11:22 Clarity SL.CLOUDY (Abnormal)?? 08/08/2023 11:22 Specific [place], Urine 1.015 ()?? 08/08/2023 11:22 pH, Urine 6.5 ()?? 08/08/2023 11:22 Albumin, Urine NEGATIVE (N)?? 08/08/2023 11:22 Glucose, Urine NEGATIVE (N)?? 08/08/2023 11:22 Ketones, Urine NEGATIVE (N)?? 08/08/2023 11:22 Bilirubin, Urine NEGATIVE (N)?? 08/08/2023 11:22 Hemoglobin, Urine TRACE (Abnormal)?? 08/08/2023 11:22 Nitrite, Urine NEGATIVE (N)?? 08/08/2023 11:22 Leukocyte, Urine 3+ (Abnormal)?? 08/08/2023 11:22 Urobilinogen 4 mg/dL (Abnormal)?? 08/08/2023 11:22 WBC's, Urine >182 /HPF (High)?? 08/08/2023 11:22 RBC's, Urine 3 /HPF ()?? 08/08/2023 11:22 Bacteria MODERATE HPF (Abnormal)?? 08/08/2023 11:22 Squamous Epith <1 /HPF ()?? 08/08/2023 11:22 Mucus SLIGHT /LPF ()?? 08/08/2023 11:22 Hold Urine Culture Testing available 48 hours from time of collection. ()?? 08/08/2023 11:22 ?? URINE OTHER Est Creatinine Clearance 98.87 mL/min ()?? 08/08/2023 12:11 ? VIROLOGY Influenza A PCR NEGATIVE ()?? 08/08/2023 11:22 Influenza B PCR NEGATIVE ()?? 08/08/2023 11:22 RSV PCR NEGATIVE ()?? 08/08/2023 11:22 COVID-19 PCR Specimen Source NASAL ()?? 08/08/2023 11:22 COVID-19 PCR Result NEGATIVE ()?? 08/08/2023 11:22 ? 46 minutes spent on_discharge including physical exam, lab review, medicine reconciliation, discussion with??charge nurse at her usp??and bedside rounds with nurse minutes spent on discharge * Fito LENZ, Kassandra: PERFORM, SIGN, VERIFY Event Display: Case Management Discharge Plan Authored Date: Patient: VAN STAFFORD Age: 63 years Sex: Female : 1960 Associated Diagnoses: None Author: Kassandra Payton RN Discharge Plan Case Management Discharge Plan : Case Management Discharge Plan Data 08/09/2023 16:05 EST Discharge Level of Care at Discharge prison facility Discharge Nursing Homes/Rehab Facilities [facility] [address] [place] [address] Discharge Transportation Arranged [facility] [address] [facility] [phone] Discharge Arranged Transport Date/Time 08/09/2023 18:30 Mode of Transportation Arranged Chair Van Name of Person Notified of Transfer patient Name of Receiving Clinician/Provider allscripts * Kelly Lopez RN: PERFORM Event Display: Patient Education/Instruction Authored Date: [id number] Inpatient Adult Discharge Instructions [facility] [address] [place] [address] Name: VAN STAFFORD : 1960 Visit: 08/08/2023 11:03:00 Current Date: 08/09/2023 17:19 Account: [id number] Inpatient Adult Discharge Instructions We would like to thank you for allowing us to assist you with your healthcare needs. The following includes patient education materials and information regarding your injury/illness. Our entire staffstrives to provide an excellent experience for our patients and their families. PLEASE ENSURE YOU FOLLOW-UP PER THE INSTRUCTIONS BELOW! ?? YOUR OPINION IS IMPORTANT TO US! Please complete the survey you may receive by mail or email. Your feedback will be used to make improvements to the healthcare experiences of our patients and their families. Surveys are administered by [employer] ?? If further treatment with your primary care physician or another doctor is recommended, it is important for you to keep the appointment. Call your primary care physician or return to the Emergency Department immediately if your condition worsens, fails to improve, or new symptoms develop. If you need to find a doctor, you can call [facility] for a referral at [phone] or toll free at [phone]) or log in to [email or web address].. ?? [facility], in keeping with [facility] guidance, no longer requires face masks for staff, patientsor visitors in most situations. Similiar to time spent indoors at other locations, there is the chance that you were exposed to repiratory viruses during your time with us (such as flu or COVID-19). If you develop symptoms concerning for a viral respiratory infection, please seek testing (and treatment if indicated) from your medical provider or home test kit. ?? You can view and manage your care through the patient portal or by using a health care cristel of your choosing. [employer] is a website that allows you to securely view your medical information including your hospital discharge summary, office visit summaries, medications and follow-up visits. You can also request appointments, renew medications, and request access to your medical information using a health care cristel of your choosing, or just ask a question. You can enroll at [email or web address] or register during your next office visit. You have been discharged from [facility], Patient Care Unit: [id number]. If you have any questions regarding these instructions after you leave, please call us and we will be happy to assist you. [facility] Your Care Team Attending Physician Karl Bryan DO Discharging Providers Karl Bryan DO Reason for Admission toxic ingestion Your Diagnosis UTI (urinary tract infection) Tests Performed Below is a partial list of the tests performed during your hospitalization. You may have had other tests and procedures not included in this list. Please discuss all test results with your provider. Alcohol Level Ammonia Venous BUN CBC w/ Differential Citrated Platelet Count Comprehensive Metabolic Panel COVID-19, RSV, and Flu A/B, Rapid PCR Creatinine Electrolytes HOLD BLUE TUBE HOLD GEL TUBE HOLD GREEN TUBE HOLD OTHER TUBE Lactate Level Magnesium Level TSH with T4 Reflex (Adults Only) Urinalysis w/hold for Urine Culture URINE MICROSCOPIC CT Head/Brain W/O Contrast US RUQ XR Chest Portable Primary Care Provider Le Haddad DO Advance Directive Health Care Proxy on File Yes - Health Care Proxy Discharge Vitals Temperature: 97.5 DegF Height: 163 cm Pulse Rate: 81 bpm Weight: 63.9 kg Respiratory Rate: 18 br/min Body Mass Index: 24.05 kg/m2 Systolic Blood Pressure:??144 mm Hg??High Body surface area: 1.7 Diastolic Blood Pressure: 81 mm Hg ?? Oxygen Saturation: 100 % ?? Studies Pending All tests and labs ordered during this hospital stay have been completed unless listed below. Please discuss all pending results with your provider listed above in these instructions. ?? Add On Lab Order Blood Culture Blood Culture #2 Urine Culture What to do next Instructions From Your Doctor You came to the hospital with??confusion. ??The confusion is likely due to taking trazodone pills. ??Please do not take any medication that is not prescribed for you.You also may have a urine infection and were treated with an intravenous antibiotic.?? I would like you to take a three more days of a pill antibiotic??and monitor for any urinary symptoms. Discharge Orders Discharge Medications VAN STAFFORD :1960 Visit Date:08/08/2023 Medications: Please continue your medications until treatment is completed or stopped by your provider. Medications not listed below should be discontinued. Discuss any questions related to medications with your provider. What How Much When Instructions Next Dose New Amoxicillin-Clavulanate (Augmentin 500 mg-125 mg oraltablet) 1 tab(s) Oral Every 12 hours Duration: 3 Days Tomorrow Changed Acetaminophen 325 mg 2 tabs Oral 4 times a day as needed for Pain , Moderate not to exceed 3000 mg/ day ?? Tonight - as needed Changed Acetaminophen 325 mg 2 tabs Per rectum Every 4 hours as needed for as needed for fever not to exceed 3000 mg/ day ?? As needed Changed Gabapentin (gabapentin 100 mg oral capsule) 1 capsule Oral 3 times a day Tonight Changed Venlafaxine (venlafaxine 150 mg oral tablet, extended release) 1 tab(s) Oral Daily Tomorrow Unchanged Bisacodyl (bisacodyl 10 mg rectal suppository) 1 suppository(ies) Per rectum Daily as needed for for constipation As needed Unchanged Bisacodyl (bisacodyl 5 mg oral delayed release tablet) 2 tab(s) Oral Daily as needed for as needed for constipation As needed Unchanged Cetirizine (cetirizine 10 mg oral capsule) 1 capsule Oral Daily for Antyhistamines ?? Tomorrow Unchanged Ergocalciferol (Vitamin D2) 1,250 Microgram Oral Every Monday Unchanged Folic Acid 1 Milligram Oral Daily Tomorrow Unchanged HydrOXYzine (hydrOXYzine pamoate 50 mg oral capsule) 1 capsule Oral Twice a day as needed for as needed for anxiety As needed Unchanged Lansoprazole (lansoprazole 30 mg oral enteric coated capsule) 1 capsule Oral Daily Tomorrow Unchanged Lorazepam (Ativan 2 mg oral tablet) 1 tab(s) Oral Twice a day as needed for as needed for anxiety As needed Unchanged Metoprolol (metoprolol 25 mg oral tablet, extended release) 1 tab(s) Oral Daily Duration: 90 Days Tomorrow Unchanged Naltrexone (naltrexone 50 mg oral tablet) 1 tab(s) Oral Daily Tomorrow Unchanged Ondansetron (ondansetron 4 mg oral tablet) 1 tab(s) Oral Every 8 hours as needed for Nausea & Vomiting As needed Unchanged Sodium Biphosphate-Sodium Phosphate (Fleet Enema) 1 cristel Per rectum Daily as needed for as needed for constipation As needed Unchanged Thiamine (thiamine 100 mg oral tablet) 1 tab(s) Oral Daily Tomorrow ?? What How Much When Comments Stop Taking Cyanocobalamin (Vitamin B12 500 mcg/ mL injectable solution) Stop Taking Miscellaneous Rx (oratec) 25 Milligram Oral Daily Stop Taking Omeprazole 40 Milligram Oral Daily Test Results Below is a partial list of the most recent Laboratory test results done prior to this discharge. You may have had other tests and procedures not included in this list. Please discuss all test resultswith your provider. Est Creatinine Clearance - 98.87 mL/min (08/08/2023) Alcohol Level (08/08/2023) ???Ethanol, Serum or Plasma - NONE DETECTED Ammonia Venous (08/08/2023) ???Ammonia, Venous - 46 ??mole/L BUN (08/09/2023) ???BUN - 6 mg/dL CBC w/ Differential (08/09/2023) ???WBC - 7.3 k/mm3???RBC - 3.24 m/mm3???Hgb - 11.8 Gm/dL???Hct - 35.1 %???MCV - 108.3 femtoliters???MCH - 36.4 pg???MCHC - 33.6 g/dL???Platelet Count - 112 k/mm3???RDW-SD - 53.7 femtoliters???MPV - 11.1 femtoliters???Nucleated RBC (Automated) - 0.0 #/100 WBC'S???Abs. NRBC - 0.0 k/mm3???Abs. Neut - 4.2 k/mm3???Abs. Lymph - 2.2 k/mm3???Abs. [place] - 0.8 k/mm3???Abs. Eo - 0.1 k/mm3???Abs. Baso - 0.1 k/mm3???Neut % - 57.7 %???Lymph % - 29.3 %???[place] % - 10.4 %???Eos % - 1.8 %???Baso % - 0.7 %???Imm Gran - 0.1 %???Abs. Imm Gran - 0.0 k/mm3 Citrated Platelet Count (08/09/2023) ???Citrated Platelet Count - 189 k/mm3 Comprehensive Metabolic Panel (08/08/2023) ???Sodium - 142 mmol/L???Potassium - 3.7 mmol/L???Chloride - 107 mmol/L???Bicarbonate Level - 24 mmol/L???Anion Gap - 11???Glucose Level - 131 mg/dL???BUN - 7 mg/dL???Creatinine-Blood - 0.5 mg/dL???Estimated GFR Creatinine - 102 ML/MIN/1.73 M2???Calcium - 9.3 mg/dL???Protein, Total - 6.1 Gm/dL???Alb umin - 3.2 Gm/dL???AG Ratio - 1.1???Alkaline Phosphatase - 110 units/L???AST (SGOT) - 57 units/L???ALT (SGPT) - 18 units/L???Bilirubin, Total - 2.1 mg/dL COVID-19, RSV, and Flu A/B, Rapid PCR (08/08/2023) ???Influenza A PCR - NEGATIVE???Influenza B PCR - NEGATIVE???RSV PCR - NEGATIVE???COVID-19 PCR Specimen Source - NASAL???COVID-19 PCR Result - NEGATIVE Creatinine (08/09/2023) ???Creatinine-Blood - 0.5 mg/dL???Estimated GFR Creatinine - 102 ML/MIN/1.73 M2 Electrolytes (08/09/2023) ???Sodium - 142 mmol/L???Potassium - 4.1 mmol/L???Chloride - 109 mmol/L???Bicarbonate Level - 21 mmol/L???Anion Gap - 12 HOLD BLUE TUBE (08/08/2023) ???Hold Blue Top - SPECIMEN DISCARDED AFTER 4 HOURS. HOLD GEL TUBE (08/08/2023) ???Hold Gel Top - SPECIMEN DISCARDED AFTER 1 WEEK HOLD GREEN TUBE (08/09/2023) ???Hold Green Top - SPECIMEN DISCARDED AFTER 1 WEEK HOLD OTHER TUBE (08/08/2023) ???Hold Other - SPECIMEN DISCARDED AFTER 1 WEEK Lactate Level (08/08/2023) ???Lactate - 1.5 mmol/L Magnesium Level (08/08/2023) ???Magnesium - 1.6 mg/dL TSH with T4 Reflex (Adults Only) (08/08/2023) ???TSH - 1.30 uIU/mL Urinalysis w/hold for Urine Culture (08/08/2023) ???Appear/Color, Urine - YELLOW???Clarity - SL.CLOUDY???Specific [place], Urine - 1.015???pH, Urine- 6.5???Albumin, Urine - NEGATIVE???Glucose, Urine - NEGATIVE???Ketones, Urine - NEGATIVE???Bilirubin, Urine - NEGATIVE???Hemoglobin, Urine - TRACE???Nitrite, Urine - NEGATIVE???Leukocyte, Urine - 3+???Urobilinogen - 4 mg/dL???Hold Urine Culture - Testing available 48 hours from time of collection. URINE MICROSCOPIC (08/08/2023) ? ?WBC's, Urine - >182 /HPF? ?RBC's, Urine - 3 /HPF? ?Bacteria - MODERATE? ?Squamous Epith - <1 /HPF???Mucus - SLIGHT Allergies (NKA means No Known Allergies) No Known Medication Allergies Problems Active Problems??(1) Urinary incontinence?? Education Materials Below is the list of Educational Leaflet Providered with your Discharge Instructions. Valuables and Belongings I fully understand and agree that [facility] accepts no responsibility for all my personal property including clothing, toilet articles, radios, jewelry, dentures, hearing aids, rings, money, or any other property that is in my possession or is brought to me after admission. I understand certain valuables may be placed in a hospital safe for a short period of time. I understand that the hospital is not liable for loss or damage due to accident, fire, or other natural occurrence while said property is in the safe. I accept full responsibility for any personal property that I keep with me, and will not hold the hospital responsible in case of loss or disappearance. I acknowledge that i have been encouraged to send valuables and belongings home. ?? Review of Valuable and Belonging List: With patient, With witness Date for Pt to Sign Valuables/Belongings: 08/08/23 16:22:00 ?? Other Discharge Information ? Case Management Discharge Plan?? Discharge Plan?? Discharge Agency Information?? Discharge Level of Care at Discharge: prison facility Name of Person Notified of Transfer: patient Discharge Transportation Arranged: [facility] [phone] [facility] [id number] Name of Receiving Clinician/Provider: ricardo Mode of Transportation Arranged: Chair Van ?? Discharge Arranged Transport Date/Time: 08/09/23 18:30:00 ?? Discharge Nursing Homes/Rehab Facilities: [address] [address] ? Pulmonary Rehab Status?? Pulmonary Rehab Discharge Status?? Respiratory Rate: 18 br/min ? Common Emergency Awareness Tips IS IT A STROKE? Act FAST and Check for these signs: FACE Does the face look uneven? ARM Does one arm drift down? SPEECH Does their speech sound strange? TIME Call at any sign of stroke ?? Heart Attack Signs Chest discomfort: Most heart attacks involve discomfort in the center of the chest and lasts more than a few minutes, or goes away and comes back. It can feel like uncomfortable pressure, squeezing, fullness or pain. Discomfort in upper body: Symptoms can include pain or discomfort in one or both arms, back, neck, jaw or stomach. Shortness of breath: With or without discomfort. Other signs: Breaking out in a cold sweat, nausea, or lightheaded. Remember, MINUTES DO MATTER. If you experience any of these heart attack warning signs, call to get immediate medical attention! ?? Smoking can increase your chances of developing chronic health problems and can cause harmful effects to other family members in your house. If you smoke, you are strongly encouraged to quit. Please call [facility] [employer] Link at [phone] or [phone] ([phone]) or log in to [email or web address] for referrals to smoking cessation programs. ?? 504 Suicide & Crisis Lifeline is available 27/03 if you or someone you know needs to find a reason to keep living. By calling 059 you'll be connected to a skilled, trained counselor at a crisis center in your area. INPATIENT DISCHARGE INSTRUCTIONS SIGNATURE PAGE VAN STAFFORD Location:[facility] Registration Date and Time:08/08/2023 11:03 EST Primary Care Physician: Le Haddad DO, Attending Physician: Karl Bryan DO, I VAN STAFFORD, have received the above patient education materials/instructions and have verbalized understanding. If ambulance or transport services are being used I further acknowledge being given a choice of service. ?? If you need to contact me, please call me at this number: . Patient/Advertising Copywriter Name: Patient/Advertising Copywriter Signature: Relationship to Patient: Witness Name/Signature: Date: Patient Care team information Care Team Personnel Name: Le Haddad DO Position: [facility] Outreach Member Role: PCP Address: Address: [address] [place] [address]- Name: Jose Juan Colvin MD Position: [facility] ED Medicine MD Member Role: ED Attending Physician Address: Address: [address] [place] [address] [place] [address]- Name: Enoch Escalona RN Position: [facility] ED RN W/OE and Tasks Member Role: Patient Care Provider Name: Narayan Rasmussen Position: [facility] ED OA Charge Member Role: ED Associate Care Team Related Persons Name: RUKHSANA STAFFORD Address: home [address] [place] [address] Name: LESTER OSCAR Address: home [address] [place] [address]
[2024-05-29 21:15] LABS: MANUAL DIFF FLAG NO
[2024-05-29 21:18] LABS: Appearance Urine Cloudy; Color Urine Dark Yellow; Glucose Urine UA Negative (Negative); Leukocyte Esterase Urine Trace (Negative); Nitrite Urine Negative (Negative); PH 5.5 (5.0-9.0); Specific Gravity - Urine 1.025 (1.005-1.025); UMIC TRIGGER UACC YES; Urine Blood Moderate (2+) (Negative); Urine Ketones Negative (Negative); Urine Protein 100 (2+) mg/dL (Neg-Trace)
[2024-05-29 21:18] LABS: Basophils Absolute Auto 0.1 X10*3/uL (0.0-0.2); Basophils Percent Auto 0.8 % (0-2); Eosinophils Absolute Auto 0.1 X10*3/uL (0.0-0.4); Eosinophils Percent Auto 1.5 % (0-4); Hematocrit 36.6 % (37.0-47.0); Hemoglobin 12.7 g/dl (12.0-16.0); Imm Gran Abs Auto 0.02 X10*3/uL (0.00-0.03); Imm Gran Pct Auto 0.3 % (0.0-0.4); Lymphocytes Absolute Auto 2.8 X10*3/uL (1.2-4.9); Mean Corpuscular HGB Conc 34.7 g/dl (31.0-35.0); Mean Corpuscular Hemoglobin 31.3 pg (27.0-33.0); Mean Corpuscular Volume 90.1 fL (80.0-98.0); Mean Platelet Volume 9.8 fL (9.4-12.3); Monocytes Absolute Auto 0.3 X10*3/uL (0.1-1.2); Monocytes Percent Auto 4.2 % (2-11); Neutrophils Absolute Auto 2.7 x10*3/uL (2.0-8.3); Neutrophils Percent Auto 45.2 % (45-73); Platelet Count 173 X10*3/uL (160-400); Red Blood Count 4.06 X10*6/uL (4.20-5.50); Red Cell Distribution Width 15.5 % (11.0-16.0); White Blood Count 5.9 X10*3/uL (4.8-10.8)
[2024-05-29 21:29] LABS: Amphetamine Screen Urine Not Detected (Not Detect); Barbiturates, Urine Not Detected (Not Detect); Benzodiazepines Screen Urine Not Detected (Not Detect); Buprenorphine Scr Positive (Not Detect); Cannabinoid Screen Urine Not Detected (Not Detect); Cocaine Screen Urine Not Detected (Not Detect); Fentanyl, urine POSITIVE (Not Detect); Methadone Screen, Urine Not Detected (Not Detect); Opiate Screen Urine Not Detected (Not Detect); Oxycodone Screen Urine Not Detected (Not Detect); Phencyclidine Screen Urine Not Detected (Not Detect)
[2024-05-29 21:32] LABS: Bacteria Urine 1+ (None Seen); RBC Urine >20 /HPF (0-2); Squamous Epithelial Cell Urine >20 /HPF (0-2); UACC Culture Trigger YES
[2024-05-29 21:36] LABS: Alanine Aminotransferase 15 U/L (0-31); Albumin Level 4.6 g/dL (3.5-5.0); Alkaline Phosphatase 120 U/L (39-117); Anion Gap 18 (12-20); Aspartate Amino Transferase 27 U/L (5-31); Bilirubin Total 0.9 mg/dL (0.0-1.0); Blood Urea Nitrogen 16 mg/dL (9-16); Calcium 9.2 mg/dL (8.4-10.2); Carbon Dioxide 19 mmol/L (22-29); Chloride 109 mmol/L (96-108); Creatinine Clr Calc Pharmacy 69.2; Estimated Glomerular Filt Rate > 60; Ethanol 166 mg/dL; Glucose Random 126 mg/dL (60-115); Lipase 45 U/L (8-78); Magnesium 1.8 mg/dL (1.6-2.6); Potassium 3.4 mmol/L (3.3-5.1); Sodium 143 mmol/L (135-145); Total Protein 7.9 g/dL (6.5-8.0)
--- NOTE | 2024-05-29 22:42 | ED_ITS ---
HPI - Alcohol General Chief Complaint: ETOH/Substance Use Stated Complaint: AMS Time Seen by Provider: 05/29/24 20:40 Source: patient Limitations: other (Intoxication) History of Present Illness ED Provider: Molly Frazier PA-C HPI narrative: 63-year-old female with a history of alcohol use disorder presents intoxicated. Per EMS, family related that the patient typically drinks a bottle of wine a day. Tonight, she drank half a bottle. They found her at the kitchen table slumped over. They could not wake her, they administered Narcan that they had, the medication was . Patient denies use of narcotics or other illicit substances. Related Data Home Medications ?Medication ?Instructions ?Recorded ?Confirmed venlafaxine 150 mg 150 mg PO DAILY 07/11/22 01/05/24 capsule,extended release 24 hr cetirizine 10 mg tablet 10 mg PO DAILY 07/22/23 01/05/24 ergocalciferol (vitamin D2) 1,250 1,250 mcg PO QWEEK 07/22/23 01/05/24 mcg (50,000 unit) capsule hydroxyzine pamoate 50 mg capsule 50 mg PO BID PRN anxiety 07/22/23 01/05/24 cyanocobalamin (vitamin B-12) 1,000 mcg PO DAILY 01/05/24 01/05/24 1,000 mcg tablet Previous Rx's ?Medication ?Instructions ?Recorded lansoprazole 30 mg capsule,delayed 30 mg PO DAILY #30 caps 10/30/23 release magnesium oxide 400 mg (241.3 mg 400 mg PO DAILY #30 tabs 01/09/24 magnesium) tablet cefuroxime axetil 250 mg tablet 250 mg PO BID 10 days #20 tabs 01/10/24 gabapentin 100 mg capsule 100 mg PO Q8H #20 caps 01/10/24 Allergies Allergy/AdvReac Type Severity Reaction Status Date / Time No Known Allergies Allergy Verified 05/29/24 20:47 [No Known Allergies*] Review of Systems 2 Review of Systems: Yes all other systems are reviewed and are negative Constitutional: Constitutional: Denies fatigue and Denies fever(s) Cardiovascular: Cardiovascular: Denies chest pain and Denies dyspnea Respiratory: Respiratory: Denies dyspnea Gastrointestinal: Gastrointestinal: Denies vomiting Endocrine: Endocrine: Denies fatigue PMFSH Past Medical History Attestation statement: The following information was validated with the patient. Medical History Alcohol use disorder Multinodular thyroid Anxiety CHF (congestive heart failure) ETOH abuse Surgical History History of esophagogastroduodenoscopy (EGD) Hx of colonoscopy Hx of hysterectomy Family History Family History Mother Cancer Father No problems noted. Social History Social History Household Members: Significant Other Household Members Other:: roommate Housing: Apartment Do you presently have visiting nurse or other home services: No Alcohol intake: current Alcohol intake frequency: 3 or more drinks per day Alcohol type: wine Patient Tobacco Use Status: Never used Tobacco Second Hand Smoke Exposure: Yes Substance Use Type: Crack/Cocaine Advance Directives: Yes Advance Directives on File: Yes Advance Directives Date on File: 07/22/23 service: No Current occupational status: disabled Physical Exam ED Vital Signs: Vital Signs - 24 hr 05/29/24 20:44 05/29/24 20:46 Temperature 97.5 F 97.5 F Pulse Rate 84 84 Respiratory Rate 20 16 Blood Pressure 134/77 134/77 Pulse Oximetry 98 98 Oxygen Delivery Method Room Air Room Air BMI result Body Mass Index 20.4 Const Other: Awake, appears older than stated age, cachectic Orientation/consciousness: patient oriented x3 Eyes Other: PERRLA, no pinpoint pupils Resp Effort & Inspection: normal respiratory effort Cardio Other: Normal peripheral perfusion Skin Other: Warm dry no rash Neuro General: patient oriented x3, no focal motor deficits and CN's II-XI intact bilaterally Psych Other: Cooperative, walking with normal steady gait Course Reevaluation(s) Reevaluation #1: I asked the patient whether she used some on Suboxone or fentanyl. Initially she denies, she then starts laughing and states that she took ?just a little from a friend?. This was in regard to the Suboxone. When asked again about the fentanyl, she continues to deny, she then relates that her boyfriend's son is an active drug abuser, she then states ?maybe he put it in my wine?. Time: 21:05 Reevaluation #2: I asked the patient if she felt she had a substance use disorder and if she would like counseling, she emphatically denies SUDE.... She is eager for discharge and family members are on the way to pick her up. Time: 22:50 Medical Decision Making Medical Decision Making MDM Narrative: 63-year-old female with a history of alcohol use disorder presents intoxicated. Per EMS, family related that the patient typically drinks a bottle of wine a day. Tonight, she drank half a bottle. They found her at the kitchen table slumped over. They could not wake her, they administered Narcan that they had, the medication was . Patient denies use of narcotics or other illicit substances. Problem: Alcohol use disorder History: Per patient and EMS I have considered the following differential diagnoses: Opiate overdose, alcohol intoxication, drug intoxication Plan: Unclear if patient consumed opiates, she denies, unclear if she had pinpoint pupils at the time she was found at the kitchen table. We will be screening basic labs, drug screen and serum ethanol. I have independently reviewed reviewed the following tests: Labs: No leukocytosis, not anemic, no electrolyte abnormality, ethanol 166, U tox positive for fentanyl and Suboxone Lab Data 05/29/24 21:01 05/29/24 21:01 Labs: Lab Results 05/29/24 05/29/24 Range/Units 21:01 21:05 WBC 5.9 (4.8-10.8) X10*3/uL RBC 4.06 L D (4.20-5.50) X10*6/uL Hgb 12.7 (12.0-16.0) g/dl Hct 36.6 L (37.0-47.0) % MCV 90.1 (80.0-98.0) fL MCH 31.3 (27.0-33.0) pg MCHC 34.7 (31.0-35.0) g/dl RDW 15.5 (11.0-16.0) % Plt Count 173 D (160-400) X10*3/uL MPV 9.8 (9.4-12.3) fL Immature Gran % (Auto) 0.3 (0.0-0.4) % Neut % (Auto) 45.2 (45-73) % Lymph % (Auto) 48.0 H (20-40) % [place] % (Auto) 4.2 (2-11) % Eos % (Auto) 1.5 (0-4) % Baso % (Auto) 0.8 (0-2) % Lymph # (Auto) 2.8 (1.2-4.9) X10*3/uL [place] # (Auto) 0.3 (0.1-1.2) X10*3/uL Eos # (Auto) 0.1 (0.0-0.4) X10*3/uL Baso # (Auto) 0.1 (0.0-0.2) X10*3/uL Abs Immat Gran (auto) 0.02 (0.00-0.03) X10*3/uL Absolute Neuts (auto) 2.7 (2.0-8.3) x10*3/uL Absolute Nucleated RBC 0.000 (0.0-0.012) X10*3/uL Nucleated RBC % (auto) 0.0 (0.0-0.2) /100WBC Sodium 143 (135-145) mmol/L Potassium 3.4 (3.3-5.1) mmol/L Chloride 109 H (96-108) mmol/L Carbon Dioxide 19 L (22-29) mmol/L Anion Gap 18 (12-20) BUN 16 (9-16) mg/dL Creatinine 0.70 (0.5-1.4) mg/dL Estim Creat Clear Calc 69.2 Estimated GFR > 60 Random Glucose 126 H (60-115) mg/dL Calcium 9.2 D (8.4-10.2) mg/dL Magnesium 1.8 (1.6-2.6) mg/dL Total Bilirubin 0.9 (0.0-1.0) mg/dL AST 27 (5-31) U/L ALT 15 (0-31) U/L Alkaline Phosphatase 120 H (39-117) U/L Total Protein 7.9 (6.5-8.0) g/dL Albumin 4.6 (3.5-5.0) g/dL Lipase 45 (8-78) U/L Urine Color Dark Yellow Urine Appearance Cloudy Urine pH 5.5 (5.0-9.0) Ur Specific [place] 1.025 (1.005-1.025) Urine Protein 100 (2+) H (Neg-Trace) mg/dL Urine Glucose (UA) Negative (Negative) mg/dL Urine Ketones Negative (Negative) mg/dL Urine Blood Moderate (2+) H (Negative) Urine Nitrite Negative (Negative) Ur Leukocyte Esterase Trace H (Negative) Urine RBC >20 H (0-2) /HPF Urine WBC 6-10 H (0-5) /HPF Ur Squamous Epith Cells >20 (0-2) /HPF Urine Bacteria 1+ (None Seen) Hyaline Casts 11-20 (0-2) /LPF Urine Opiates Screen Not Detected (Not Detect) Ur Buprenorphine Scrn Positive H (Not Detect) ng/mL Ur Oxycodone Screen Not Detected (Not Detect) ng/mL Urine Methadone Screen Not Detected (Not Detect) ng/mL Urine Fentanyl Screen POSITIVE H (Not Detect) Ur Barbiturates Screen Not Detected (Not Detect) Ur Phencyclidine Scrn Not Detected (Not Detect) Ur Amphetamines Screen Not Detected (Not Detect) U Benzodiazepines Scrn Not Detected (Not Detect) Urine Cocaine Screen Not Detected (Not Detect) U Marijuana (THC) Screen Not Detected (Not Detect) Ethyl Alcohol 166 mg/dL Discharge Plan Discharge Clinical Impression: Alcohol intoxication, Acute drug intoxication Patient Disposition: Home, Self-Care Instructions: Abuse of Alcohol (ED) Additional Instructions: Your drug screen tested positive for Suboxone and fentanyl. You were also clinically intoxicated with alcohol. You declined substance abuse resources. To note, you can return at any time if you choose to seek help for your substance use disorder. Prescriptions: No Action lansoprazole 30 mg capsule,delayed release(DR/EC) 30 mg PO DAILY Qty: 30 3RF cetirizine 10 mg tablet 10 mg PO DAILY ergocalciferol (vitamin D2) 1,250 mcg (50,000 unit) capsule 1,250 mcg PO QWEEK hydroxyzine pamoate 50 mg capsule 50 mg PO BID PRN (Reason: anxiety) cyanocobalamin (vitamin B-12) 1,000 mcg tablet 1,000 mcg PO DAILY magnesium oxide 400 mg (241.3 mg magnesium) Tablet 400 mg PO DAILY Qty: 30 0RF cefuroxime axetil 250 mg tablet 250 mg PO BID 10 Days Qty: 20 0RF gabapentin 100 mg capsule 100 mg PO Q8H Qty: 20 0RF venlafaxine 150 mg capsule,extended release 24hr 150 mg PO DAILY Print Language: Faroese
[2024-05-29 22:50] VITALS: BP 123/78; PULSE 85; RESP 18; TEMP 36.6; O2SAT 97
[2024-05-29 23:07] VITALS: BP 123/78; PULSE 85; RESP 18; TEMP 36.6; O2SAT 97
== END 2024-05-29 22:55 | disposition home or self-care (01) ==
PROVIDERS: Physician Assistant Medical; Emergency Provider Emergency Medicine
DX: F10.220 Alcohol dependence with intoxication, uncomplicated (principal); Y90.6 Blood alcohol level of 120-199 mg/100 ml; F19.120 Other psychoactive substance abuse with intoxication, uncomplicated; Z79.899 Other long term (current) drug therapy
CPT/HCPCS: 36415; 80053; 80307; 81001; 83690; 83735; 85025; 87086; 99284

== ENCOUNTER 2024-11-15 18:46 | Emergency (ER) | payer MEDICARE, SELFPAY ==
[2024-11-15 19:05] VITALS: BP 138/74; BP 166/102; PULSE 109; PULSE 111; RESP 18; TEMP 36.2; O2SAT 97; BMI 23.9
[2024-11-15] MEDS: LORazepam 1 MG TABLET 2 MG PO (19:36)
[2024-11-15 19:39] LABS: MANUAL DIFF FLAG NO
[2024-11-15 19:42] LABS: Basophils Absolute Auto 0.1 X10*3/uL (0.0-0.2); Basophils Percent Auto 1.5 % (0-2); Eosinophils Absolute Auto 0.1 X10*3/uL (0.0-0.4); Eosinophils Percent Auto 2.2 % (0-4); Hematocrit 36.8 % (37.0-47.0); Hemoglobin 13.2 g/dl (12.0-16.0); Imm Gran Abs Auto 0.01 X10*3/uL (0.00-0.03); Imm Gran Pct Auto 0.2 % (0.0-0.4); Lymphocytes Absolute Auto 2.4 X10*3/uL (1.2-4.9); Lymphocytes Percent Auto 52.8 % (20-40); Mean Corpuscular HGB Conc 35.9 g/dl (31.0-35.0); Mean Corpuscular Hemoglobin 35.8 pg (27.0-33.0); Mean Corpuscular Volume 99.7 fL (80.0-98.0); Monocytes Absolute Auto 0.4 X10*3/uL (0.1-1.2); Monocytes Percent Auto 8.7 % (2-11); Neutrophils Absolute Auto 1.6 x10*3/uL (2.0-8.3); Neutrophils Percent Auto 34.6 % (45-73); Platelet Count 148 X10*3/uL (160-400); Red Blood Count 3.69 X10*6/uL (4.20-5.50); Red Cell Distribution Width 14.6 % (11.0-16.0); White Blood Count 4.6 X10*3/uL (4.8-10.8)
[2024-11-15 19:58] LABS: Acetaminophen LAB < 3 mcg/mL (<30); Salicylate < 5.0 mg/dL (15-30)
[2024-11-15 20:00] LABS: Alanine Aminotransferase 108 U/L (0-31); Albumin Level 4.5 g/dL (3.5-5.0); Alkaline Phosphatase 131 U/L (39-117); Anion Gap 17 (12-20); Aspartate Amino Transferase 196 U/L (5-31); Bilirubin Total 1.3 mg/dL (0.0-1.0); Blood Urea Nitrogen 10 mg/dL (9-16); Calcium 9.1 mg/dL (8.4-10.2); Carbon Dioxide 20 mmol/L (22-29); Chloride 111 mmol/L (96-108); Creatinine Clr Calc Pharmacy 77.3; Estimated Glomerular Filt Rate > 60; Ethanol 337 mg/dL; Glucose Random 112 mg/dL (60-115); Potassium 4.1 mmol/L (3.3-5.1); Sodium 144 mmol/L (135-145); Total Protein 8.2 g/dL (6.5-8.0)
[2024-11-15 20:40] LABS: Appearance Urine Clear; Color Urine Dark Yellow; Glucose Urine UA Negative (Negative); Leukocyte Esterase Urine Negative (Negative); Nitrite Urine Negative (Negative); PH 5.5 (5.0-9.0); Specific Gravity - Urine 1.025 (1.005-1.025); UMIC TRIGGER UA YES; Urine Blood Negative (Negative); Urine Ketones Trace mg/dL (Negative); Urine Protein 30 (1+) mg/dL (Neg-Trace)
[2024-11-15 20:43] LABS: Bacteria Urine None Seen (None Seen); Hyaline Casts Urine 0-2 /LPF (0-2); RBC Urine 0-2 /HPF (0-2); WBC Urine 0-5 /HPF (0-5)
[2024-11-15 20:49] LABS: Amphetamine Screen Urine Not Detected (Not Detect); Barbiturates, Urine Not Detected (Not Detect); Benzodiazepines Screen Urine Not Detected (Not Detect); Buprenorphine Scr Not Detected (Not Detect); Cannabinoid Screen Urine Not Detected (Not Detect); Cocaine Screen Urine Not Detected (Not Detect); Fentanyl, urine Not Detected (Not Detect); Methadone Screen, Urine Not Detected (Not Detect); Opiate Screen Urine Not Detected (Not Detect); Oxycodone Screen Urine Not Detected (Not Detect); Phencyclidine Screen Urine Not Detected (Not Detect)
--- OUTSIDE RECORDS SUMMARY | 2024-11-15 21:04 | XMS_ITS | Data Portability ---
Author Organization [facility] [employer] [place], [place] in - [facility] Address [address] [place] [id number] Care Team Providers Care Home Hospice Aide Name Role Phone [facility] Referring Provider HIM [facility] OTHER Assessment No assessment recorded. Plan of Treatment Reminders Order Date Submit Date Provider Last Modified By Organization Details Last Modified Time Details Appointments None recorded. Lab BMP, serum or plasma [address], [id number], 09:43:40 Referral None recorded. Procedures None recorded. Surgeries None recorded. Imaging electrocard iogram 2022 023 [facility], [address] [place] [address], [phone], 05:00:47 Medication Orders None recorded. Patient TargetsNo targets recorded. Patient InstructionsNo instructions recorded. Reason for Referral None Reported. Results Created Date Observation Date Name Description Value Unit Range Abnormal Flag Note LastModifiedBy Organization Detail LastModifiedTime 03/02/20 23 03/03/2023 elect valentino arango am No observ ation record ed. [address], [phone], 03/03/2023 09:41:28 Result Notes None recorded. Procedures Surgical History None recorded. Imaging Results Imaging Date Name Status LastModified by Organization Details LastModified Time 03/03/2023 electrocardiogram completed [address], [phone], 03/03/2023 09:41:28 Procedure Notes None recorded. Medical Equipment None Reported. Medications Name Sig Start Date Stop Date Status Note LastModified by Organization Details LastModified Time trazodone 50 mg tablet TAKE 1 TO 2 TABLETS BY MOUTH DAILY AT BEDTIME active Not Available Not Available No t Available cetirizine 10 mg tablet TAKE 1 TABLET BY MOUTH EVERY DAY active Not Available Not Available No t Available clindamycin HCl 150 mg capsule TAKE 1 CAPSULE BY MOUTH EVERY 6 HOURS active Not Available Not Available No t Available venlafaxine ER 150 mg capsule,exten ded release 24 hr TAKE 1 CAPSULE BY MOUTH EVERY DAY active Not Available Not Available No t Available cyanocobalami n (vit B-12) 1,000 mcg tablet TAKE 1 TABLET BY MOUTH EVERY DAY active Not Available Not Available No t Available thiamine HCl (vitamin B1) 100 mg tablet TAKE 1 TABLET BY MOUTH EVERY DAY active Not Available Not Available No t Available hydroxyzine pamoate 50 mg capsule TAKE 1 CAPSULE BY MOUTH TWICE DAILY NEEDED FOR ANXIETY active Not Available Not Available No t Available pantoprazole 40 mg tablet,delaye d release TAKE 1 TABLET BY MOUTH TWICE DAILY BEFORE BREAKFAST AND SUPPER active Not Available Not Available N ot Available lansoprazole 30 mg capsule,delay ed release TAKE 1 CAPSULE BY MOUTH ONCE DAILY active Not Available Not Available No t Available folic acid 1 mg tablet TAKE 1 TABLET BY MOUTH EVERY DAY active Not Available Not Available No t Available metoprolol succinate ER 25 mg tablet,extend ed release 24 hr TAKE 1 TABLET BY MOUTH EVERY DAY active Not Available Not Available No t Available ibuprofen 600 mg tablet TAKE 1 TABLET BY MOUTH EVERY 8 HOURS NEEDED FOR PAIN active Not Available Not Available No t Available amoxicillin 875 mg-potassium clavulanate 125 mg tablet TAKE 1 TABLET BY MOUTH TWICE DAILY FOR 10 DAYS active Not Available Not Available No t Available Arthritis Pain Relief (acetaminophe n) ER 650 mg tablet,extend release TAKE 2 TABLETS BY MOUTH EVERY 8 HOURS NEEDED. SWALLOW WHOLE WITH WATER DO NOT BREAK, CRUSH, DISSOLVE OR CHEW active Not Available Not Available No t Available Vitals Date Recorded Oxygen saturation Oxygen saturation in Arterial blood by Pulse oximetry Heart rate Respiratory rate Body temperature Systolic blood pressure Diastolic blood pressure Provider Name and Address Organization Details Last Updated DateTime 3 96 % 96 % 103 /min 20 /min 97.8 [degF] 140 mm[Hg] 100 mm[Hg] Not Available [facility] 3 20:33:31 Date Recorded Body temperature Respiratory rate Oxygen saturation Oxygen saturation in Arterial blood by Pulse oximetry Heart rate Systolic blood pressure Diastolic blood pressure Provider Name and Address Organization Details Last Updated DateTime 4 98.1 [degF] 16 /min 100 % 100 % 90 /min 147 mm[Hg] 85 mm[Hg] Not Available [facility] 4 16:43:22 Social History None recorded. Functional Status None recorded. Mental Status None recorded. Family History Nothing Reported. Medical History No medical history recorded. Gynecological HistoryNo gynecological history recorded. Obstetrics History GPAL:G 0 P 0 0 0 0 Past Encounters Encounter ID Performer Location Encounter Start Date Encounter Closed Date Diagnosis/Indication Diagnosis SNOMED-CT Code Diagnosis ICD10 Code Diagnosis Note [id number] Moises Vizcaino MD Main - [address] [phone] 03/02/2023 18:12:52 03/02/2023 22:31:16 Alcohol intoxication 08310830 F10.929 Patient does not wish to go to ED for evaluation at this time. Unable to get IV placed for fluids, but BMP is stable. Low BUN and Sew On Operator in setting of malnutriti on and chronic alcohol use. Encouraged to seek alcohol detox treatment at ED. Patient precontemp lative. Discussed hydration in setting of alcohol use. Mild dehydration [id number] 119 108 E86.0 Normotensi ve to hypertensi ve. Unable to get IV [place] [id number] Michi Ratliff MD Main - [address] [phone] 11/28/2023 16:43:20 11/28/2023 19:18:58 Alcohol intoxication 13130360 F10.929 This 63-year-ol d female called [facility] requesting antibiotic s for a dental infection. She can't recall the last time she saw a dentist. She was clearly intoxicate d at the time of the visit. She also has neuropathy be hasn't been taking her Neurontin. I advised her to stop consuming alcohol. She needs to contact her PCP and dentist regarding her other medical issues. Her overall dentation was horrible, and I explained to the patient that prescribin g an antibiotic in this situation would be counter productive . She needs to see a dentist. Health Concerns Section Related Observation LastModified by Organization Robert norris LastModified Time None Recorded Concern Status LastModified by Organization Details LastModified Time None Recorded Advance Directives Directive None Recorded Payers Encounter Date Sequence Insurance Name Policy Number Policy Lyn Covered Member ID Lyn Member ID Guarantor Name 03/02/2023 1 [facility] - DOS ON OR AFTER 2022 - DUAL ELIGIBLE - PENITENTIARY OPTIONS AND ONE CARE (MEDICARE REPLACEMENT/ADV ANTAGE - HMO) Nubia Bell [id number] Nubia Bell 11/28/2023 1 [facility] [place] - DOS ON OR AFTER 2022 - DUAL ELIGIBLE - PENITENTIARY OPTIONS AND ONE CARE (MEDICARE REPLACEMENT/ADV ANTAGE - HMO) Nubia Bell [id number] Nubia Bell Notes Date Note Type Note Provider Name and Address Organization Details Recorded Time 03/02/2023 text/html HPI: pt is alcoholic drinks only 1/2 wine and 1/2 crancherry juice all day. alcoholic cardiomyopathy, anxiety, depression. Pt describes signs of dehydration, urine with very strong, bad odor and brown color. Skin dry , flakey, alligator skin . .................... .................... .................... .................... .................... .................... .................... . CRC Nursing Assessment: Comments: CRC RN DID NOT NEED FURTHER INFO .................... .................... .................... .................... .................... .................... .................... . Bindery Machine Setter/Set Up Operator Note From Cary Ashby: Community Bindery Machine Setter/Set Up Operator Michelle Ashby CCA1 dispatched to a yellow for a 62 yof C/O dehydration. Pt reported to [facility] that she had been drinking wine. Upon arrival, the pt was able to ambulate to the door, was awake and alert, IVY X4, in no apparent distress. She stated that she drank alcohol every day, and that she visited the ED 2 weeks prior for ETOH withdrawal S/S. She stated that the ED didn't do anything, and that there were no available beds for her to seek inpt detox. Pt stated that she was unwilling to seek inpt detox at that time b/c she didn't want to be locked up, and that she had a fear of closed doors. Pt was able to answer all questions appropriately but w/ much prompting. Pt's partner/roommate arrived; he calmly supported the recommendation that the pt seek inpt detox/rehab as well. Skin warm pink and dry, PERRL, equal bilateral chest rise with nonlabored RR, abd distended but soft nontender; more tissue felt under right ribcage-nontender to palpation, no pedal edema. Pt denied any complaints at that time except dehydration and depression; she stated that she was receiving care from a psych provider. [facility] [place] 4[place] IV attempt w/ no success, BMP and EKG in insted. EKG and BMP results were discussed w/ pt, and she was encouraged to drink water, eat more and eat more nutritious foods, and to seek inpt detox. Pt refused 911/ED at that time. Risks of continuing to drink alcohol every day were made clear to the pt, and red flags were discussed at length. .................... .................... .................... .................... .................... .................... .................... . Disposition: Fulfilled Moises Vizcaino MD [address] [facility],[address], [place], [phone], [employer] 03/02/2023 21:04:12 11/28/2023 text/html CRC Nurse Triage Notes (Yenifer Parsons): Reason For Request: Neuropathy pain, weakness Chief Complaints: Pain, Dehydration, Weakness/Lethargy PMH: Hypertension, CHF, Other Allergies: No Known Comments: 63 year old female with PMH: HTN, CHF ( no diuretic use), stomach pains, GERD Denies blood thinners, DM hx, c/o lower leg neuropathy, worsening pain- takes Gabapentin but that just puts her to sleep, c/o dental problems/pain/numbne ss in her mouth (ongoing), member thinks she needs an ABX for her mouth pain weakness in legs, Denies SOBE, and usually pretty active. PCP appointment for 12/06 Zara RN Verified name//address Michi Ratliff MD [address] [facility],[address], [place], [phone], Screen 11/28/2023 16:49:27 OBGyn Episode No OBEpisode recorded.
--- OUTSIDE RECORDS SUMMARY | 2024-11-15 21:05 | XMS_ITS | Data Portability ---
Author Organization [facility] [employer] [facility], Main Office Address [address] [place] [address] Care Team Providers Care Ward Assistant Name Role Phone PHILLIP PINZON - 2ND FLOOR OTHER STEPHANIE HOLCOMB Primary Care Provider Assessment Encounter Date Assessment Date Assessment LastModified by Organization Details LastModified Time 02/06/2024 02/06/2024 45 minutes spent on coordination of discharge. [email or web address] Not available 02/06/2024 14:13:31 Plan of Treatment Reminders Order Date Submit Date Provider Last Modified By Organization Details Last Modified Time Details Appointments None record ed. Lab None record ed. Referral None record ed. Procedures None record ed. Surgeries None record ed. Imaging None record ed. Medication Orders None record ed. Patient TargetsNo targets recorded. Patient InstructionsNo instructions recorded. Reason for Referral None Reported. Problems Name Problem SNOMED Code Status Onset Date Resolution Date Notes Provider Name and Address Organization Details Recorded Time Zonia morenoa 416883751 Active 2023 Carri Gabriel NP [address], [address], [place], [address], [facility] [employer] [facility] 4 09:00:49 Bacteremi a 6784681 Active 2023 Carri Gabriel NP [address], [address], [place], [address], [facility] [employer] 4 09:01:03 Gastroeso phageal reflux disease 948976615 Active 2023 Carri Gabriel NP [address] [facility], [address], [place], [address], [facility] [employer] 4 09:01:21 Adult failure to thrive syndrome 491716997 Active 2023 Carri Gabriel NP [address], [address], [place], [address], [facility] 4 09:01:32 Asthenia 05965018 Active 2023 Carri Gabriel NP [address], [address], [place], [address], [facility] 4 09:01:39 Mixed anxiety and depressiv e disorder 259789014 Active 2023 Carri Gabriel NP [address] [facility], [address], [place], [address], [facility] 4 09:01:55 Seasonal allergy 707950422 Active 2023 Carri Gabriel NP [address] [facility], [address], [place], [address], [facility] 4 09:02:06 Substance abuse 85647832 Active 2023 Carri Gabriel NP [address] [facility], [address], [place], [address], [facility] 4 09:03:33 Pyeloneph ritis 21237087 Active 2023 Carri Gabriel NP [address] [facility], [address], [place], [address], [facility] 4 09:04:17 History of cocaine abuse 612779022003 106 Completed 202301/11/2024 Carri Gabriel NP [address] [facility], [address], [place], [address], [facility] 4 09:08:03 Vitamin deficienc y 88651590 Active 2023 Carri Gabriel NP [address] [facility] [address] [facility], [address], [place], [address], [facility] 4 09:15:37 Thyroid nodule 181460348 Completed 202301/11/2024 Carri Gabriel NP [address] [facility], [address], [place], [address], [facility] 4 10:05:42 Heart failure 20501961 Active 2023 Carri Gabriel NP [address], [address], [place], [address], [facility] 4 10:05:52 Hypertens rona disorder 99247609 Active 2023 Carri Gabriel NP [address], [place], [address], [facility] 4 10:07:05 Steatosis of liver 566991163 Completed 202301/11/2024 Avis Covington MD [address], [address], [place], [address], [facility] 4 22:04:40 Recurrent falls 200989435 Active 2023 Carri Gabriel NP [address] [facility], [address], [place], [address], [facility] 4 10:22:04 Fracture of multiple ribs 8137203 Active 2023 Carri Gabriel NP [address] [facility], [address], [place], [address], [facility] 4 10:26:33 Alcohol abuse 00137195 Active 2023 Avis Covington MD [address] [facility], [address], [place], [address], [facility] 4 19:45:27 History of cerebrova scular accident 102211289 Active 2023 Avis Covington MD [address], [address], [place], [address], [facility] 4 19:56:24 Neck pain 87725123 Active 2023 Avis Covington MD [address], [address], [place], [address], [facility] 4 21:47:58 Steatosis of liver 145952979 Active 2023 Avis Covington MD [address], [place], [address], [facility] 4 22:04:40 Jose escobar 510462421 Active 2023 Avis Covington MD [address] [facility], [address], [place], [address], [facility] 4 22:04:43 Problem Notes None recorded. Medical Equipment None Reported. Allergies No known drug allergies Vitals Date Recorded Body weight Heart rate Respiratory rate Body temperature Oxygen saturation Oxygen saturation in Arterial blood by Pulse oximetry Systolic blood pressure Diastolic blood pressure Provider Name and Address Organization Details Last Updated DateTime 4 14574.4 2 g 84 /min 18 /min 97.7 [degF] 97 % 97 % 112 mm[Hg] 68 mm[Hg] Carri Gabriel NP [address] [facility] [address] [facility] [facility] [address], [place], [address], [facility] 4 09:22:13 Date Recorded Body height Body mass index (BMI) Body weight Heart rate Respiratory rate Body temperature Oxygen saturation Oxygen saturation in Arterial blood by Pulse oximetry Systolic blood pressure Diastolic blood pressure Provider Name and Address Organization Details Last Updated DateTime 4 157.48 cm 23.6 kg/m2 69892.4 2 g 90 /min 18 /min 97.1 [degF] 96 % 96 % 137 mm[Hg] 83 mm[Hg] Avis Covington MD [address] [facility], [facility] [address], [place], [address], [facility] 4 19:03:29 Date Recorded Body height Heart rate Respiratory rate Body temperature Oxygen saturation Oxygen saturation in Arterial blood by Pulse oximetry Systolic blood pressure Diastolic blood pressure Provider Name and Address Organization Details Last Updated DateTime 4 157.48 cm 90 /min 18 /min 97.6 [degF] 97 % 97 % 128 mm[Hg] 76 mm[Hg] TALIA HOUSTON NP [address] [facility] [address] [facility], [address], [place], [address], [facility] 4 15:19:27 Date Recorded Body height Body weight Body mass index (BMI) Heart rate Respiratory rate Body temperature Oxygen saturation Oxygen saturation in Arterial blood by Pulse oximetry Systolic blood pressure Diastolic blood pressure Provider Name and Address Organization Details Last Updated DateTime 4 157.48 cm 45882.4 5 g 22.7 kg/m2 91 /min 16 /min 97.7 [degF] 97 % 97 % 106 mm[Hg] 70 mm[Hg] Carri Gabriel NP [address] [facility], [address], [place], [address], [facility] 4 10:00:20 Date Recorded Body height Heart rate Respiratory rate Body temperature Oxygen saturation Oxygen saturation in Arterial blood by Pulse oximetry Systolic blood pressure Diastolic blood pressure Provider Name and Address Organization Details Last Updated DateTime 4 157.48 cm 100 /min 18 /min 97.8 [degF] 94 % 94 % 131 mm[Hg] 79 mm[Hg] TALIA HOUSTON NP [address] [facility] [address] [facility], [address], [place], [address], [facility] 4 13:52:59 Social History Question Answer Notes LastModified by Organizat ion Details LastModified Time Tobacco Smoking Status Never Smoker Carri Gabriel NP [address] [facility], [address], [place], [address], [facility] 01/11/2024 09:49:55 Do You Have An Advance Directive? Yes Information not available 01/16/2024 What Is Your Level Of Alcohol Consumption? Heavy Information not available 01/11/2024 How Many Times Per Week Do You Consume Alcohol? 5-7 Times Per Week 1/2 Bottle Of Wine Daily Lately Had Been A Whole Bottle Until A Month Or 2 Ago Information not available 01/16/2024 What Is Your Level Of Caffeine Consumption? None Information not available 01/11/2024 What Is Your Code Status? Full Code Information not available 01/11/2024 Which Illicit Or Recreational Drugs Have You Used? Cocaine Last On New Years Blue Fish About 1 Year Ago (? Oxycontin) Information not available 01/11/2024 Where Do You Live? Apartment [address], With Boyfriend Information not available 01/16/2024 Legal Guardian? No Informati on not available 01/16/2024 Do You Have A Medical Power Of Aluminum Siding Applicator? Yes Information not available 01/16/2024 What Was The Date Of Your Most Recent Tobacco Screening? 01/16/2024 Information not available 01/16/2024 Do You Have An Out Of Hospital DNR? No Information not available 01/11/2024 Have You Ever Been Counseled For Unhealthy Alcohol Use? Yes She Says It's A Friend Which Has Always Been There For Her. Plans On Stopping From Now On Information not available 01/16/2024 What Is Your Relationship Status? Domestic Partner Together X 25 Yrs Information not available 01/16/2024 Do You Feel Stressed (tense, Restless, Nervous, Or Anxious, Or Unable To Sleep At Night)? [id number] Information not available 01/11/2024 Do You Use Any Illicit Or Recreational Drugs? Yes Information not available 01/11/2024 Has Tobacco Cessation Counseling Been Provided? No Information not available 01/11/2024 Have You Used IV Drugs? No Information not available 01/11/2024 Do You Have Any Dietary Restrictions? No Information not available 01/11/2024 Do You Or Have You Ever Used Any Other Forms Of Tobacco Or Nicotine? No Information not available 01/11/2024 How Many Days In The Past Year Have You Consumed 4 Or More Drinks? 365 Information not available 01/11/2024 Sex: Female Functional Status None recorded. Mental Status None recorded. Family History Nothing Reported Notes:Mother cancer Father decreased no problems Medical History No medical history recorded. Gynecological HistoryNo gynecological history recorded. Obstetrics History GPAL:G 0 P 0 0 0 0 Immunizations Vaccine Type Date Status Note Provider Nam e and Address Organization Details Recorded Time Hep B, unspecified formulation 8 completed M[facility] 01/12/2024 12:31:23 Hep B, unspecified formulation 8 l[facility] 01/12/2024 12:31:30 Hep B, unspecified formulation 2 completed [facility] 01/12/2024 12:31:37 Tdap 4 completed Mimi [facility] 01/12/2024 12:31:51 Td(adult) unspecified formulation 6 completed Mimi [facility] 01/12/2024 12:32:06 Pneumococcal conjugate PCV20, polysaccharide [id number] conjugate, adjuvant, PF 4 completed Mimi [facility] 01/12/2024 12:35:15 pneumococcal polysaccharide PPV23 5 completed Mimi [facility] 01/12/2024 12:35:31 influenza, unspecified formulation 2 completed Mimi [facility] 01/12/2024 12:35:47 influenza, unspecified formulation 3 completed Mimi [facility] 01/12/2024 12:35:55 Hep A, unspecified formulation 8 completed Mimi [facility] 01/12/2024 12:36:17 Hep A, unspecified formulation 2 completed Mimi [facility] 01/12/2024 12:36:24 SARS-COV-2 (COVID-19) vaccine, UNSPECIFIED 1 completed Mimi [facility] 01/12/2024 12:36:41 SARS-COV-2 (COVID-19) vaccine, UNSPECIFIED 1 completed Mimi [facility] 01/12/2024 12:36:53 SARS-COV-2 (COVID-19) vaccine, UNSPECIFIED 2 completed [facility] 01/12/2024 12:37:05 SARS-COV-2 (COVID-19) vaccine, UNSPECIFIED 3 completed Mimi [facility] 01/12/2024 12:37:21 SARS-COV-2 (COVID-19) vaccine, UNSPECIFIED 4 completed Mimi verdugo [place] [facility] 01/12/2024 12:37:31 Past Encounters Encounter ID Performer Location Encounter Start Date Encounter Closed Date Diagnosis/Indication Diagnosis SNOMED-CT Code Diagnosis ICD10 Code Diagnosis Note [id number] Carri Gabriel NP [address] [address] 01/11/2024 08:25:19 01/16/2024 08:36:09 Pyelonephritis 45091635 N12 hosp noted ecoli in blood and urine cultures tx with iv abx and transition ed to po cefuroxime 250 mg po bid x 10 more days heremonito rcbc and bmp weekly Bacteremia 6552731 R78.8 1 noted ecoli in blood and urine cultures tx with iv abx and transition ed to po cefuroxime 250 mg po bid x 10 more days heremonito rcbc and bmp weekly Asthenia 61454257 R53.1 PT/OT to eval and treatmonit or Adult fail ure to thrive syndrome 855703633 R62.7 pt with failure to thrive and weakness for approx 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 t 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 for better nutritiono n ensure tidmonitor Hypomagnesemia 184856866 E83.42 magnesium oxide 400 mg po dailymonit or Gastroesop hageal reflux disease 178083857 K21.9 lansoprazo le 30 mg po dailymonit or Mixed anxi ety and depressive disorder 491077727 F41.8 hydroxyzin e 50 mg cap po bid prn anxietyven lafaxine 150 mg cap po dailygabap entin 100 mg po tid (was decreased in hosp)monit or Seasonal allergy 6873645 04 J30.2 cetirizine 10 mg po dailymonit or Alcohol abuse 77772481 F 10.10 with cocaine and etoh abusetx with phenobarb protocol, folic acid and thiamine inpthad visual hallucinat ions in hosp now resolvedmo nitor for s/s of etoh withdrawal continue supportive care and encourage abstinence monitor Substance abuse 80502111 F19.10 with cocaine and etoh abusetx with phenobarb protocol, folic acid and thiamine inpthad visual hallucinat ions in hosp now resolvedmo nitor for s/s of etoh withdrawal continue supportive care and encourage abstinence monitor Vitamin deficiency 05067 002 E56.9 vitamin def unspecifie dcontvit d2 1250 mcg po q weekvit b12 1000 mcg po dailymonit or Heart failure 46715753 I 50.9 hx of heart failureunc lear why she was taken off metoprolol in hospmonito r hr and bp closely q shift here for need Hypertensive disorder 38 208241 I10 hx of heart failureunc lear why she was taken off metoprolol succ in hosp( was on 25 mg po qd)monitor hr and bp closely q shift here for need Steatosis of liver 1007 K76.0 noted steatoiss of liver with ETOH use hxmonitor lftsdc tylenol with elevated liver enzymesmon itor Thyroid nodule 585072512 E04.1 hx offu outpt as needed Recurrent falls 19250277 2 R29.6 pt has hx of furniture walking and fallsthera py to treat and eval for strength, balance, gait, mobility, safety awarenessw alker usesupport rona caremonito r Fracture o f multiple ribs 3650052 S22.41XS hx of 6th and 7th right rib fracturesp t reports no paincont incentive spirometer no brusing or deformity notedmonit or for sequelae [id number] [facility] [address] 01/16/2024 18:35:58 01/22/2024 09:48:54 Pyelonephritis 76504600 N10 Grew e. coli, same strain, from urine and blood.Cont inue cefuroxime 250 mg BID until 01/19 to complete 2 wk course of abxs.Monit or sxs and labs. Bacteremia 7697135 R78.8 1 As above. Asthenia 29193095 R53.1 Very deconditio [place].Needs PT/OT for strengthen ing, balance, gait training, safety and function.C ontinue fall precaution s.Monitor for safety.Wit h continued falling since here. Needs encouragem ent to use walker ALL THE TIME! Adult fail ure to thrive syndrome 637860598 R62.7 Likely due to EtOH abuse.Enco urage cessation and improved nutrition. Patient Safety Tech consult. Hypomagnesemia 600275199 E83.42 Continue magnesium oxide 400 mg qdMonitor levels Gastroesop hageal reflux disease 219238295 K21.9 Continue lansoprazo le 30 mg qdMonitor GI sxs Mixed anxi ety and depressive disorder 098691373 F41.8 Gabapentin was decreased inpt due to concerns about oversedati on, pt is requesting return to previous dose.Will increase to 100 mg BID with 200 mg at bedtime.Co ntinue venlafaxin e 150 mg qd and hydroxyzin e 50 mg BID prn anxietyMon itor mood.Consu lt psych prn Alcohol abuse 05575001 F 10.10 With hx of withdrawal , had some evidence inpt, txed with phenobarb protocol.W as txed with folic acid and thiamine inpt., but not continued. Will add thiamine 100 mg qd and Folic Acid 1 mg qd.Monitor CBC.Contin ue to encourage cessation. Seasonal allergy 8047053 04 J30.2 Continue cetirizine 10 mg qdMonitor sxs Substance abuse 30288231 F19.10 As above.Also hx of cocaine use.Encour age abstinence . Vitamin deficiency 30714 002 E56.8 Continue ergocalcif jo 50,000 IU weekly and vit b12 1000 mcg qdMonitor levels prn. Heart failure 24235004 I 50.32 In hx, but recent echo was WNL.Appear s euvolemic. Monitor resp. status, fluid status, wts and labs. Hypertensive disorder 38 524360 I10 BP good since here, off meds.Monit or need to restart metoprolol Steatosis of liver 1007 K70.30 Hx ofAbd is sl. distended, but imaging inpt did not show any ascites.Solomon d elevated LFTs.No APAP.F/U with GI as outpt. Recurrent falls 05258373 2 R29.6 As above. Fracture o f multiple ribs 9799272 S22.41XS Unclear how old these are.No pain.Monit or Multinodular goiter 2375 66548 E04.2 Seen by endocrine surgeon in 2019.His note: 58-y ear-old female with asymptomat ic bilateral thyroid lobe nodules. Clinically and biochemica lly euthyroid. No major compressiv e symptoms. Prior FNA of right inferior pole nodule few years ago was benign. Recent ultrasound showed stable bilateral thyroid lobe nodules (some nodules are actually smaller). Right inferior pole nodule was felt to be highly suspicious for malignancy based on calcificat ions. Repeat FNA was attempted, but patient apparently was intoxicate d during procedure and declined to have biopsy and requested thyroidect kimberly. We had a lengthy discussion today regarding further management . Ideally, it would be preferable to obtain biopsies first to decide if surgery is indicated. Discussed with the patient, that many small asymptomat ic thyroid nodules with benign FNA, can be followed nonoperati vely. Thyroidect kimberly is not totally unreasonab le, given the presence of bilateral nodules, ultrasonog raphically suspicious appearance and need for surveillan ce, but surgery carries risks (voice changes, hypocalcem ia) in addition to permanent hypothyroi dism. After lengthy discussion , the patient is inclined to have a biopsy, and if cytology is benign, she would likely prefer observatio n afterwards . She admits that the decision to pursue thyroidect kimberly was somewhat spontaneou s and she is willing to give a try to have another biopsy. she will contact Dr Mantilla to arrange f/u FNA. Obviously, if she changes her mind or cannot tolerate another biopsy or if cytology is indetermin ate or suspicious for malignancy , I would be happy to see her back for thyroidect kimberly evaluation . She apparently never followed up.Will encourage her to do this as an outpt. History of cerebrovascular accident 236446194 Z86.73 Old right lacunar infarct seen on head CT.No sequelae.M onitor Neck pain 05392279 M54.2 Likely after fall last night.No point tenderness .Will start lidocaine patch 12 hrs/day.Mo nitor sxs. [id number] TALIA HOUSTON NP [address] [address] 01/25/2024 15:18:26 02/06/2024 13:24:09 Pyelonephritis 39535529 N10 Grew e. coli, same strain, from urine and blood.Comp leted cefuroxime 250 mg BID on 01/19 to complete 2 wk course of abxs.Clini luba improving. VS and labs stable so far.Monito r sxs and labs. Bacteremia 4354178 R78.8 1 As above. Asthenia 32694390 R53.1 Very deconditio [place].Needs PT/OT for strengthen ing, balance, gait training, safety and function.C ontinue fall precaution s.Monitor for safety.Wit h continued falling since here. Needs encouragem ent to use walker ALL THE TIME! Alcohol abuse 40290255 F 10.10 With hx of withdrawal , had some evidence inpt, txed with phenobarb protocol.W as txed with folic acid and thiamine inpt., but not continued. Will add thiamine 100 mg qd and Folic Acid 1 mg qd.Monitor CBC.Contin ue to encourage cessation. Adult fail ure to thrive syndrome 108416295 R62.7 Likely due to EtOH abuse.Enco urage cessation and improved nutrition. Patient Safety Tech consult. Hypomagnesemia 288525211 E83.42 Mg 1.6Increas ed magnesium oxide 400 mg to bidMonitor levels - repeat next week Gastroesop hageal reflux disease 351145224 K21.9 Continue lansoprazo le 30 mg qdMonitor GI sxs Mixed anxi ety and depressive disorder 752313381 F41.8 Gabapentin was decreased inpt due to concerns about oversedati on, pt is requesting return to previous dose.Incre ased to 100 mg BID with 200 mg at bedtime - batool. well so far.Contin ue venlafaxin e 150 mg qd and hydroxyzin e 50 mg BID prn anxietyMon itor mood.Consu lt psych prn Seasonal allergy 3165147 04 J30.2 Continue cetirizine 10 mg qdMonitor sxs Substance abuse 30908005 F19.10 As above.Also hx of cocaine use.Encour age abstinence . Vitamin deficiency 43017 002 E56.8 Continue ergocalcif jo 50,000 IU weekly and vit b12 1000 mcg qdMonitor levels prn. Heart failure 31152017 I 50.32 In hx, but recent echo was WNL.Appear s euvolemic. Monitor resp. status, fluid status, wts and labs. Hypertensive disorder 38 477973 I10 BP good since here, off meds.Monit or need to restart metoprolol Steatosis of liver 1007 K70.30 Hx ofAbd is sl. distended, but imaging inpt did not show any ascites.Solomon d elevated LFTs.No APAP.F/U with GI as outpt. Multinodular goiter 2375 34542 E04.2 Seen by endocrine surgeon in 2019.His note: 58-y ear-old female with asymptomat ic bilateral thyroid lobe nodules. Clinically and biochemica lly euthyroid. No major compressiv e symptoms. Prior FNA of right inferior pole nodule few years ago was benign. Recent ultrasound showed stable bilateral thyroid lobe nodules (some nodules are actually smaller). Right inferior pole nodule was felt to be highly suspicious for malignancy based on calcificat ions. Repeat FNA was attempted, but patient apparently was intoxicate d during procedure and declined to have biopsy and requested thyroidect kimberly. We had a lengthy discussion today regarding further management . Ideally, it would be preferable to obtain biopsies first to decide if surgery is indicated. Discussed with the patient, that many small asymptomat ic thyroid nodules with benign FNA, can be followed nonoperati vely. Thyroidect kimberly is not totally unreasonab le, given the presence of bilateral nodules, ultrasonog raphically suspicious appearance and need for surveillan ce, but surgery carries risks (voice changes, hypocalcem ia) in addition to permanent hypothyroi dism. After lengthy discussion , the patient is inclined to have a biopsy, and if cytology is benign, she would likely prefer observatio n afterwards . She admits that the decision to pursue thyroidect kimberly was somewhat spontaneou s and she is willing to give a try to have another biopsy. she will contact Dr Mantilla to arrange f/u FNA. Obviously, if she changes her mind or cannot tolerate another biopsy or if cytology is indetermin ate or suspicious for malignancy , I would be happy to see her back for thyroidect kimberly evaluation . She apparently never followed up.Will encourage her to do this as an outpt. Recurrent falls 61837614 2 R29.6 As above. Fracture o f multiple ribs 2758931 S22.41XS Unclear how old these are.No pain.Monit or History of cerebrovascular accident 268659476 Z86.73 Old right lacunar infarct seen on head CT.No sequelae.M onitor Neck pain 20173432 M54.2 Likely after fall last night.No point tenderness .Will start lidocaine patch 12 hrs/day.Liban herndon sxs. [id number] Carri Gabriel NP [address] [address] 02/01/2024 09:57:59 02/06/2024 15:07:03 Pyelonephritis 31280157 N10 resolved, improvedGr ew e. coli, same strain, from urine and blood.Comp leted cefuroxime 250 mg BID on 01/19 to complete 2 wk course of abxs.Monit or sxs and labs. Bacteremia 2194125 R78.8 1 As above. Asthenia 12622276 R53.1 Very deconditio [place]. but improving with therapyNee ds PT/OT for strengthen ing, balance, gait training, safety and function.C ontinue fall precaution s.Monitor for safety.Wit h continued falling since here. Needs encouragem ent to use walker ALL THE TIME! Alcohol abuse 70109725 F 10.10 With hx of withdrawal , had some evidence inpt, txed with phenobarb protocol.W as txed with folic acid and thiamine inpt., but not continued. contthiami ne 100 mg qdFolic Acid 1 mg qd.Continu e to encourage cessation. Adult fail ure to thrive syndrome [id number] R62.7 Likely due to EtOH abuse. improvingE ncourage cessation and improved nutrition. Patient Safety Tech consult for nutritiona l deficienci es Hypomagnesemia [id number] E83.42 Mg 1.6 now 1.8 improving on supplement scontmagne sium oxide 400 mg to bidMonitor levels - repeat next week Gastroesop hageal reflux disease [id number] K21.9 Continuela nsoprazole 30 mg qdMonitor GI sxs Mixed anxi ety and depressive disorder [id number] F41.8 note: Gabapentin was decreased inpt due to concerns about oversedati onwhile at regalIncre ased to 100 mg BID with 200 mg at bedtime - batool. well so far. no s/s of sedationve nlafaxine 150 mg qdhydroxyz ine 50 mg BID prn anxietyMon itor mood.Consu lt psych prn Seasonal allergy 6361502 04 J30.2 Continuece tirizine 10 mg qdMonitor sxs Substance abuse 96952878 F19.10 As above.Also hx of cocaine use.Encour age abstinence . Vitamin deficiency 41057 002 E56.8 Continueer gocalcifer ol 50,000 IU weeklyvit b12 1000 mcg qdMonitor levels prn. Heart failure 73806199 I 50.32 In hx, but recent echo was WNL.Appear s euvolemic. Monitor resp. status, fluid status, wts and labs. Hypertensive disorder 38 123456 I10 BP good since here, off meds.Monit or need to restart metoprolol Steatosis of liver 1007 K70.30 seems improvedHx ofAbd is sl. distended, but imaging inpt did not show any ascites.Solomon d elevated LFTs.No APAP.F/U with GI as outpt. Multinodular goiter 2375 71030 E04.2 Seen by endocrine surgeon in 2019.His note: 58-y ear-old female with asymptomat ic bilateral thyroid lobe nodules. Clinically and biochemica lly euthyroid. No major compressiv e symptoms. Prior FNA of right inferior pole nodule few years ago was benign. Recent ultrasound showed stable bilateral thyroid lobe nodules (some nodules are actually smaller). Right inferior pole nodule was felt to be highly suspicious for malignancy based on calcificat ions. Repeat FNA was attempted, but patient apparently was intoxicate d during procedure and declined to have biopsy and requested thyroidect kimberly. We had a lengthy discussion today regarding further management . Ideally, it would be preferable to obtain biopsies first to decide if surgery is indicated. Discussed with the patient, that many small asymptomat ic thyroid nodules with benign FNA, can be followed nonoperati vely. Thyroidect kimberly is not totally unreasonab le, given the presence of bilateral nodules, ultrasonog raphically suspicious appearance and need for surveillan ce, but surgery carries risks (voice changes, hypocalcem ia) in addition to permanent hypothyroi dism. After lengthy discussion , the patient is inclined to have a biopsy, and if cytology is benign, she would likely prefer observatio n afterwards . She admits that the decision to pursue thyroidect kimberly was somewhat spontaneou s and she is willing to give a try to have another biopsy. she will contact Dr Mantilla to arrange f/u FNA. Obviously, if she changes her mind or cannot tolerate another biopsy or if cytology is indetermin ate or suspicious for malignancy , I would be happy to see her back for thyroidect kimberly evaluation . She apparently never followed up.Will encourage her to do this as an outpt. Recurrent falls [id number] 2 R29.6 As above. Fracture o f multiple ribs 4037878 S22.41XS Unclear how old these are. no pain, bruising or deformitie sNo pain.Monit or History of cerebrovascular accident [id number] Z86.73 Old right lacunar infarct seen on head CT.No sequelae.M onitor [id number] TALIA HOUSTON, GRETA [facility] [address] [place] [address] 02/06/2024 13:37:38 02/12/2024 19:23:35 Pyelonephritis 11252057 N10 E. ColiComple benita cefuroxime 250 mg bid to complete 2 wk. course of abx. Clinically resolved, but sl. elevation in wbcs today (12.3)Leuk ocytosis and concern for re-infecti on discussed with Nubia in light of discharge home (still wants to leave tomorrow despite this issue) Plan -UA C&S stat, then start cefuroxime 250 mg bid x 7 days after spec. obtained.W ill forward UA C&S results to PCP as they become available. Continue to monitor VS, s/s infection. Needs follow up next week with PCP as well as repeat CBCOK for discharge home tomorrow, also ok to postpone d/c home until if pt. requestsEd ucate pt. to contact PCP if continues to decline after dischargeM aintain fluids. Bacteremia 1955343 R78.8 1 As above. Asthenia 63656296 R53.1 Very deconditio [place]. but improving with therapyMee ting goals for d/c home tomorrow with support of family and services.C ontinue fall precaution s.Encourag e pt. to use her walker ALL THE TIME! Alcohol abuse 07347240 F 10.10 With hx of withdrawal , had some evidence inpt, txed with phenobarb protocol.W as txed with folic acid and thiamine inpt., but not continued. contthiami ne 100 mg qdFolic Acid 1 mg qd.Continu e to encourage cessation. Adult fail ure to thrive syndrome 212894498 R62.7 Likely due to EtOH abuse. improvingE ncourage cessation and improved nutrition. Patient Safety Tech consult for nutritiona l deficienci es Hypomagnesemia [id number] E83.42 Mg 1.6 -> 1.8 -> 1.5continu e magnesium oxide 400 mg to bidMonitor levels as outpt. Gastroesop hageal reflux disease 175181287 K21.9 Continuela nsoprazole 30 mg qdMonitor GI sxs Mixed anxi ety and depressive disorder 838644552 F41.8 note: Gabapentin was decreased inpt due to concerns about oversedati onwhile at regalIncre ased to 100 mg BID with 200 mg at bedtime - batool. well so far. no s/s of sedationCo ntinue:aleksey lafaxine 150 mg qdhydroxyz ine 50 mg BID prn anxietyMon itor mood as outpt. Seasonal allergy 5440102 04 J30.2 Continuece tirizine 10 mg qdMonitor sxs Substance abuse 59778816 F19.10 As above.Also hx of cocaine use.Encour age abstinence . Vitamin deficiency 14643 002 E56.8 Continueer gocalcifer ol 50,000 IU weeklyvit b12 1000 mcg qdMonitor levels prn. Heart failure 97359836 I 50.32 In hx, but recent echo was WNL.Appear s euvolemic. Monitor resp. status, fluid status, wts and labs. Hypertensive disorder 38 456810 I10 BP good since here, off meds.Monit or need to restart metoprolol Steatosis of liver 1007 K70.30 seems improvedHx ofAbd is sl. distended, but imaging inpt did not show any ascites.Solomon d elevated LFTs.No APAP.F/U with GI as outpt. Multinodular goiter 2375 01404 E04.2 Seen by endocrine surgeon in 2019.His note: 58-y ear-old female with asymptomat ic bilateral thyroid lobe nodules. Clinically and biochemica lly euthyroid. No major compressiv e symptoms. Prior FNA of right inferior pole nodule few years ago was benign. Recent ultrasound showed stable bilateral thyroid lobe nodules (some nodules are actually smaller). Right inferior pole nodule was felt to be highly suspicious for malignancy based on calcificat ions. Repeat FNA was attempted, but patient apparently was intoxicate d during procedure and declined to have biopsy and requested thyroidect kimberly. We had a lengthy discussion today regarding further management . Ideally, it would be preferable to obtain biopsies first to decide if surgery is indicated. Discussed with the patient, that many small asymptomat ic thyroid nodules with benign FNA, can be followed nonoperati vely. Thyroidect kimberly is not totally unreasonab le, given the presence of bilateral nodules, ultrasonog raphically suspicious appearance and need for surveillan ce, but surgery carries risks (voice changes, hypocalcem ia) in addition to permanent hypothyroi dism. After lengthy discussion , the patient is inclined to have a biopsy, and if cytology is benign, she would likely prefer observatio n afterwards . She admits that the decision to pursue thyroidect kimberly was somewhat spontaneou s and she is willing to give a try to have another biopsy. she will contact Dr Mantilla to arrange f/u FNA. Obviously, if she changes her mind or cannot tolerate another biopsy or if cytology is indetermin ate or suspicious for malignancy , I would be happy to see her back for thyroidect kimberly evaluation . She apparently never followed up.Will encourage her to do this as an outpt. Recurrent falls [id number] 2 R29.6 As above. Fracture o f multiple ribs 7744905 S22.41XS Unclear how old these are. no pain, bruising or deformitie sNo pain.Monit or History of cerebrovascular accident 490989564 Z86.73 Old right lacunar infarct seen on head CT.No sequelae.M onitor Health Concerns Section Related Observation LastModified by Organization Detai ls LastModified Time None Recorded Concern Status LastModified by Organization Details LastModified Time None Recorded Advance Directives Directive Y: Payers Encounter Date Sequence Insurance Name Policy Number Policy Lyn Covered Member ID Lyn Member ID Guarantor Name 01/11/2024 1 [place] [facility] Nubia Paetls [id number] Nubia Patels 01/16/2024 1 [place] [facility] Nubia A Griess [id number] Nubia Griess 01/25/2024 1 [place] [facility] Nubia A Griess [id number] Nubia Griess 02/01/2024 1 [place] [facility] Nubia Joyce Griess [id number] Nubia Griess 02/06/2024 1 [place] [facility] Nubia A Griess [id number] Nubia Patels Notes Date Note Type Note Provider Name and Address Organization Details Recorded Time 4 text/html Pt is seen for an initial intake. Nubia is a 63 yo female with pmh HTN, GERD, HF, ETOH use with hx of withdrawal, anxiety, depression and multinodular thyroid fell out of bed and presented to [facility] ED on 01/05/24-01/10/24 found to have acute pyelonephritis. It was felt she would benefit from rehab for generalized weakness, failure to thrive with poor nutrition, and therapy. Her workup consisted of UA positive for UTI, lactic acid 2.4, mag 1.2, ast 81, alt 34, alb 3.2. CT of cervical spine found cervical spondyloslyisis without acute fx. CT of chest and abd and pelvisfound nondisplaced fractures of right 6th and 7thribs, patchy nephrograms of right greater than left kidneys concerning for acute pyelonephtritis, gluid/liquid distention of scattered loops of small and large bowel sugesive of possible enterocolitis, and bilateral thyroid nodules. EKG resulted in ST of [address] elevations or depressions. Tx with acetaminophen, IVF, mag sulfate, and ceftriaxone. Urine and blood cultures grew E coli sensitive to cephalosporin and dc home on ceftin for 2 more weeks.She was counseled while inpatient for ETOH abuse. She had a cardiac workup neg for acute concerns and metoprolol was discontinued. Unclear why metoprolol was discontinued and pt states she was taking this at home regularly. While inpatient her gabapentin reduced to 100 mg po tid felt related to fall and somnolence with ETOH. She was started on magnesium and cefuroxime in hosp. On exam, Nubia is pleasant and resting in bed this am in NAD. She reports falling multiple times at home and using furniture to walk since May. She denies any nausea, diarrhea, pain, chest pressure, vomiting, or hallucinations. MOLST: full code 01/10/24 Carri Gabriel NP [address] [facility], [address], [place], [address], [facility] [employer] [facility] 01/11/2024 10:30:51 4 text/html This is a 63 yo woman with EtOH use disorder who is here for rehab after an acute hospitalization for pyelonephritis.She presented to the [facility] ED on 01/04 with c/o weakness, fatigue, malaise, inability to ambulate, fall. Patient reports that this morning she was lying in bed she rolled over to get a water bottle and ended up falling onto her side, she has been having pain to her side ever since, no head strike or loss of consciousness however she states it all happened so quickly that she has not sure exactly how it all happened. She states she lives at home with her boyfriend and has minimal support. Not eating and drinking well. Reports nausea, vomiting and abdominal pain for months supposed to see GI today she tells me. She reports chronic weakness, that has been worsening. She reports she has not been able to walk for 2-3 months. She has a walker at home however she does not use it. She denies fevers, chills, diarrhea, headache, vision changes, dizziness, , cp, sob Per D/C summary: Pt is a 63-year-old female with a PMH significant for HTN, GERD, HFpEF, alcohol use disorder with hx of withdrawal, anxiety, and depression who presents to the ED after fall out of bed this morning when she reached for a water bottle on the nightstand. Is not quite sure exactly what happened to cause her to fall, but pt fell on the floor and hit her right side and head on the waste basket. Pt lives with a room mate who called EMS. Pt states she has been having progressively worsening generalized weakness and difficulty walking since May of last year. Does not use assistive device for ambulation, but instead holds onto furniture. States she can now barely walk on her own and spends much of her time in bed. Last week had two falls in the bathroom. Also reports decreased appetite and reduced p.o. intake of both fluids and solids. Has a long history of heavy alcohol use, used to drink vodka but now drinks around half a bottle of wine daily. Some nausea while in the ED but no vomiting. Complains of right-sided chest wall pain. Denies fever, chills, abdominal pain. No diarrhea. No increase in swelling in lower extremities or abdomen. Reports intermittent chest tightness/pressure that has been ongoing for a long time . No SOB or difficulty breathing. Denies dysuria or polyuria. No flank pain.In the ED pt was afebrile but tachycardic up to 109, vitals otherwise WNL. Labs were significant for lactic acid 2.4, magnesium 1.2, bilirubin 2.9, AST 81, ALT 34, and albumin 3.2. UA positive for UTI. CT of head found no acute intracranial pathology. 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 CT of chest and abdomen and pelvis with multiple findings, including nondisplaced fractures of right 6th and 7th ribs; patchy nephrograms of right greater than left kidneys concerning for acute pyelonephritis; fluid/liquid distention of scattered loops of small and large bowel suggestive of possible enterocolitis; and bilateral thyroid nodules. EKG demonstrated sinus tachycardia of 118 with low voltage QRS but no evidence of significant ST elevations or depressions. Pt was treated with acetaminophen, IVF Mag sulfate and ceftriaxone. Pt will be admitted to the hospital for treatment further evaluation of acute pyelonephritis.Hospital course:E coli bacteremia due to acute pyelonephritis.63-year-old female with a PMH significant for HTN, GERD, HFpEF, alcohol use disorder with hx of withdrawal, anxiety, and depression who presents to the ED after fall out of bed when she reached for a water bottle on the nightstand, workup in the emergency room was consistent with acute pyelonephritis patient admitted to medical floor and placed on IV ceftriaxone, urine and blood cultures grew E coli sensitive to cephalosporin, CT abdomen and pelvis showed no obstructive lesions, therefore patient is being discharged home on by mouth Ceftin 250 mg twice daily for total 2 weeks of antibiotics repeat blood cultures have been obtained and report is pending.Alcohol use disorder/ Alcohol withdrawal patient was treated with phenobarb protocol, folic acid and thiamine patient noted to have intermittent visual hallucinations now resolved patient seen by Addiction Team they provided her with written resources including information on inpatient and outpatient treatment, KRUPA, harm reduction, and recovery coaching, patient plans to explore recovery coaching and possibly SMART recovery or other non step support groups.Hypomagnesemia repleted and normalizedFall with right 6 and 7th rib fractures patient has good pain control, recommend incentive spirometryGeneralized weakness/failure to thrive due to poor nutrition related to alcohol use placed on ensure, patient evaluated by Physical therapy and they recommend short-term rehab.Mood disorder dose of gabapentin reduced to 100 mg t.i.d. due to excessive somnolence likely contributed to fall along with alcohol abuse. Incidental finding on head CT of old lacunar infarct seen within theanterior limb of the right internal capsule. She was transferred here on 01/09.Since here she has been working with rehab. Has been ambulating with walker and did 10 steps today with one railing.Last night she had a fall when she tried to go to BR without assist, she did not use walker. She got to BR door, then lost her balance and fell backwards, hit her head. No LOC, crawled to call kramer to get help. Since that time she has had some neck pain, but no other residual.She tells me she is having trouble sleeping since gabapentin was decreased. We discuss why it was decreased and agree to try going back to 200 mg only at bedtime. Her PMH includes HTN, GERD, CHF pEF, ETOH use disorder with hx of withdrawal, anxiety, depression and multinodular goiter. Avis Covington MD [address] [facility], [address], [place], [address], [facility] [employer] [facility] 01/16/2024 22:04:59 4 text/html Nubia is seen today for an acute visit. This is a 63 yo woman with EtOH use disorder who is here for rehab after an acute hospitalization for pyelonephritis.She presented to the [facility] ED on 01/04 after falling OOB and hitting her head. She has noted progressive weakness with falls at home. Also reported decreased appetite and reduced p.o. intake of both fluids and solids. Has a long history of heavy alcohol use, used to drink vodka but now drinks around half a bottle of wine daily.In the ED pt was afebrile but tachycardic up to 109, vitals otherwise WNL. Labs were significant for lactic acid 2.4, magnesium 1.2, bilirubin 2.9, AST 81, ALT 34, and albumin 3.2. UA positive for UTI. CT of head found no acute intracranial pathology. 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 CT of chest and abdomen and pelvis with multiple findings, including nondisplaced fractures of right 6th and 7th ribs; patchy nephrograms of right greater than left kidneys concerning for acute pyelonephritis; fluid/liquid distention of scattered loops of small and large bowel suggestive of possible enterocolitis; and bilateral thyroid nodules. EKG demonstrated sinus tachycardia of 118 with low voltage QRS but no evidence of significant ST elevations or depressions. Pt was treated with acetaminophen, IVF Mag sulfate and ceftriaxone. Admitted for tx. Rei coli bacteremia due to acute pyelonephritis. Status improved, discharged on Ceftin 250 mg twice daily for total 2 weeks of antibiotics. Repeat blood cultures have been obtained and report is pending.Alcohol use disorder/ Alcohol withdrawal: patient was treated with phenobarb protocol, folic acid and thiamine patient noted to have intermittent visual hallucinations now resolved patient seen by Addiction Team they provided her with written resources including information on inpatient and outpatient treatment, KRUPA, harm reduction, and recovery coaching, patient plans to explore recovery coaching and possibly [employer] or other non step support groups.Hypomagnesemia repleted and normalizedFall with right 6 and 7th rib fractures patient has good pain control, recommend incentive spirometryGeneralized weakness/failure to thrive due to poor nutrition related to alcohol use placed on ensure, patient evaluated by Physical therapy and they recommend short-term rehab.Mood disorder dose of gabapentin reduced to 100 mg t.i.d. due to excessive somnolence likely contributed to fall along with alcohol abuse. Incidental finding on head CT of old lacunar infarct seen within theanterior limb of the right internal capsule. She was transferred here on 01/09. She continues to work with rehab, making gains, up walking in the moise with her walker and supervision. Did have a fall in her room x 1, no injury, attempting to go to BR without her walker and lost her balance.Gabapentin dose increased back to 200 mg due to trouble sleeping, batool. well so far.VSSLabs stable except Mg sl. low at 1.6. Upon exam, Nubia is in bed, alert, pleasant, NAD. Feels ok, no specific complaints today.Case discussed with nsg., no concerns at this time. Her PMH includes HTN, GERD, CHF pEF, ETOH use disorder with hx of withdrawal, anxiety, depression and multinodular goiter. TALIA HOUSTON, GRETA [address] [facility], [address], [place], [address], [facility] [employer] [facility] 01/25/2024 15:39:44 4 text/html Pt is seen today for an acute visit. Her PMH includes HTN, GERD, CHF pEF, ETOH use disorder with hx of withdrawal, anxiety, depression and multinodular goiter. Nubia is a 63 yo female who presented to [facility] ED on 01/05/24-01/10/24 found to have acute pyelonephritis. It was felt she would benefit from rehab for generalized weakness, failure to thrive with poor nutrition, and therapy. While here at [facility] Nubia is making gains and doing well. Her llabs reviewed on 01/29 improved and she remains on supplements for magnesium and thiamine. On exam, She is working with therapy and reports she is mostly concentrating on balance. She has no abd pain, pain in general, diarrhea, constipation, or urgency, frequency, or cva pain. She states she is feeling much better in general. She has been eating 3 meals a day and states this is much more than usual. She has lost approx 4 lbs since admit here, will monitor. of note: Her workup consisted of UA positive for UTI, lactic acid 2.4, mag 1.2, ast 81, alt 34, alb 3.2. CT of cervical spine found cervical spondyloslyisis without acute fx. CT of chest and abd and pelvis found nondisplaced fractures of right 6th and 7thribs, patchy nephrograms of right greater than left kidneys concerning for acute pyelonephtritis, gluid/liquid distention of scattered loops of small and large bowel suggesive of possible enterocolitis, and bilateral thyroid nodules. EKG resulted in ST of [address] elevations or depressions. Tx with acetaminophen, IVF, mag sulfate, and ceftriaxone. Urine and blood cultures grew E coli sensitive to cephalosporin and dc home on ceftin for 2 more weeks. She was counseled while inpatient for ETOH abuse. She had a cardiac workup neg for acute concerns and metoprolol was discontinued. Unclear why metoprolol was discontinued and pt states she was taking this at home regularly. While inpatient her gabapentin reduced to 100 mg po tid felt related to fall and somnolence with ETOH. She was started on magnesium and cefuroxime in hosp. Carri Gabriel NP [address] [facility], [address], [place], [address], [facility] [employer] [facility] 02/01/2024 11:47:10 4 text/html Nubia is seen today for discharge.She is planning on going home tomorrow with support of family and services. She is a 63 yo female admitted to [facility] from [facility] on 01/09 for continued care and rehab after a hospitalization related due pyelonephritis. She presented to [facility] 01/04 with weakness and falls. Also reported decreased appetite and reduced p.o. intake of both fluids and solids. Has a long history of heavy alcohol use, used to drink vodka but now drinks around half a bottle of wine daily. Complains of right-sided chest wall pain.In the ED pt was afebrile but tachycardic up to 109, vitals otherwise WNL. Labs were significant for lactic acid 2.4, magnesium 1.2, bilirubin 2.9, AST 81, ALT 34, and albumin 3.2. UA positive for UTI. CT of head found no acute intracranial pathology. 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 CT of chest and abdomen and pelvis with multiple findings, including nondisplaced fractures of right 6th and 7th ribs; patchy nephrograms of right greater than left kidneys concerning for acute pyelonephritis; fluid/liquid distention of scattered loops of small and large bowel suggestive of possible enterocolitis; and bilateral thyroid nodules. EKG demonstrated sinus tachycardia of 118 with low voltage QRS but no evidence of significant ST elevations or depressions. Pt was treated with acetaminophen, IVF Mag sulfate and ceftriaxone.Hospital course:E coli bacteremia due to acute pyelonephritis - placed on IV ceftriaxone, urine and blood cultures grew E coli sensitive to cephalosporin, CT abdomen and pelvis showed no obstructive lesions, therefore patient was discharged on Ceftin 250 mg twice daily for total 2 weeks of antibiotic. Repeat blood cultures obtained and report was pending upon d/c here.Alcohol use disorder/ Alcohol withdrawal patient was treated with phenobarb protocol, folic acid and thiamine patient noted to have intermittent visual hallucinations now resolved patient seen by Addiction Team they provided her with written resources including information on inpatient and outpatient treatment, KRUPA, harm reduction, and recovery coaching, patient plans to explore recovery coaching and possibly SMART recovery or other non step support groups.Hypomagnesemia repleted and normalizedFall with right 6 and 7th rib fractures patient has good pain control, recommend incentive spirometryGeneralized weakness/failure to thrive due to poor nutrition related to alcohol use placed on ensure, patient evaluated by Physical therapy and they recommend short-term rehab.Mood disorder dose of gabapentin reduced to 100 mg t.i.d. due to excessive somnolence likely contributed to fall along with alcohol abuse. Incidental finding on head CT of old lacunar infarct seen within theanterior limb of the right internal capsule. Since her admission here, she has been doing better.Working with rehab, meeting goals for d/c home with support of family and services. Eager to return home [place].She had 1 fall while here, ambulating to the BR without her walker and lost her balance.Due to complaints of not sleeping, HS gabapentin increased to 200 mg. VSS, HR tends to run +/- 100. BP stableWeight stable, 124-125 lbs.Intake fair, depends on the food .Labs stable/improved up until today - wbc elevated 12.3.No s/s infection at this time. Her PMH includes HTN, GERD, CHF pEF, ETOH use disorder with hx of withdrawal, anxiety, depression and multinodular goiter. TALIA HOUSTON NP [address] [facility], [address], [place], [address], [facility] [employer] 02/06/2024 14:26:41 OBGyn Episode No OBEpisode recorded.
--- OUTSIDE RECORDS SUMMARY | 2024-11-15 21:05 | XMS_ITS | Clinical Summary ---
Author Organization [facility] Facility Address [address] [address] Care Team Providers Care Medical Coding Auditor Name Role Phone Le Haddad DO Primary Care Provider Unava ilable Social History Tobacco Use Types Packs/Day Years Used Date Smoking Tobacco: Never Assessed Comments Unknown Sex and Gender Information Value Date Recorded Sex Assigned at Not on file Legal Sex Female 4:46 PM EST Gender Identity Not on file Sexual Orientation Not on file Plan of Treatment Health Maintenance Due Date Last Done Comments Breast Cancer Screening 1959 Colorectal Cancer Screening: Annual FOBT 2008 Colorectal Cancer Screening: Colonoscopy 2008 Colorectal Cancer Screening: Sigmoidoscopy 2008 Influenza Vaccine (#1) 2024 Pneumococcal Vaccine: 65+ Ye ars (1 of 1 - PCV) 2024 Hepatitis B Vaccine Aged Out No longe r eligible based on patient's age to complete this topic Pneumococcal Vaccine: Pediat rics (0 to 5 Years) and At-Risk Patients (6 to 64 Years) Aged Out No longer eligible b ased on patient's age to complete this topic Care Teams Medical Coding Auditor Relationship Specialty Start Date End Date Le Haddad DO PCP - General 09/14/20
--- NOTE | 2024-11-15 22:19 | ED.PSYCH ---
HPI - Psych General Chief Complaint: Psychiatric Symptoms Stated Complaint: SI, non compliant w/ psych meds, drank wine Time Seen by Provider: 11/15/24 21:37 Source: patient Mode of arrival: ambulatory Limitations: no limitations History of Present Illness ED Provider: HPI Narrative: Patient's history of depression alcohol use disorder feeling increased depressed wanted to end her life with no plan also complaining of neuropathy in all over the body unable to sleep for last few nights after arrival patient calm and cooperative Related Data Home Medications ?Medication ?Instructions ?Recorded ?Confirmed hydroxyzine pamoate 50 mg capsule 50 mg PO BID PRN anxiety 07/22/23 11/16/24 Allergies Allergy/AdvReac Type Severity Reaction Status Date / Time No Known Allergies Allergy Verified 11/15/24 19:11 [No Known Allergies*] Review of Systems Review of Systems: Yes all other systems are reviewed and are negative [facility] Past Medical History Medical History Alcohol use disorder Multinodular thyroid Anxiety CHF (congestive heart failure) ETOH abuse Surgical History History of esophagogastroduodenoscopy (EGD) Hx of colonoscopy Hx of hysterectomy Family History Family History Mother Cancer Father No problems noted. Social History Social History Household Members: Significant Other Household Members Other:: roommate Housing: Apartment Do you presently have visiting nurse or other home services: No Alcohol intake: current Alcohol intake frequency: 3 or more drinks per day Alcohol type: wine Patient Tobacco Use Status: Never used Tobacco Second Hand Smoke Exposure: Yes Substance Use Type: Crack/Cocaine Advance Directives: Yes Advance Directives on File: Yes Advance Directives Date on File: 07/22/23 Do you have a plan to hurt others: No Plan service: No Current occupational status: disabled Physical Exam Vital Signs: Vital Signs: Last Vital Signs Temp 98.0 F 11/16/24 05:04 Pulse 91 11/16/24 05:04 Resp 18 11/16/24 05:04 BP 161/93 H 11/16/24 05:04 Pulse Ox 97 11/16/24 05:04 O2 Del Method Room Air 11/16/24 05:04 BMI result Body Mass Index 23.9 Appearance: Alert. Oriented X3. No acute distress. ETOH+, depressed Eyes: PERRLA, No Nystagmus ENT: Pharynx normal. Oral Mucosa moist Neck: Normal inspection. Neck supple. CVS: Normal heart rate and rhythm. Pulses normal. Respiratory: No respiratory distress. Equal air entry bilateral, no wheezing/rales/rhonchi Abdomen: Soft and nontender. Bowel sounds are present, no mass palpable, no CVA tenderness Skin: Skin warm and dry. Normal skin color. Normal skin turgor. Extremities: No lower extremity edema. No calf tenderness psych: Accept depression denies any SI no hallucination or delusion Neuro: Oriented X 3. No motor deficit. No sensory deficit.No cerebellar signs , cranial nerves II-XII intact Medications Administered Generic Name Dose Route Start Last Admin Trade Name Freq PRN Reason Stop Dose Admin Lorazepam 2 mg 11/16/24 05:20 11/16/24 05:44 Lorazepam 1 Mg Tablet PO 2 mg RQ4H WHILE AWAKE PRN Administration Alcohol Withdrawal Discontinued Medications Generic Name Dose Route Start Last Admin Trade Name Freq PRN Reason Stop Dose Admin Lorazepam 2 mg 11/15/24 19:30 11/15/24 19:36 Lorazepam 1 Mg Tablet PO 11/15/24 19:31 2 mg ONCE ONE Administration Ondansetron HCl 4 mg 11/16/24 05:20 11/16/24 05:35 Ondansetron Odt 4 Mg Tab.Rapdis TRANSLINGU 11/16/24 05:21 4 mg ONCE ONE Administration Medical Decision Making Medical Decision Making [facility] Narrative: Patient's depression alcohol use had suicidal feeling earlier will get care team evaluation Lab Data [facility] Lab Attestation statement: I reviewed the patient's lab results. 11/15/24 19:28 11/15/24 19:28 Labs: Lab Results 11/15/24 11/15/24 Range/Units 19:28 20:32 WBC 4.6 L (4.8-10.8) X10*3/uL RBC 3.69 L (4.20-5.50) X10*6/uL Hgb 13.2 (12.0-16.0) g/dl Hct 36.8 L (37.0-47.0) % MCV 99.7 H (80.0-98.0) fL MCH 35.8 H (27.0-33.0) pg MCHC 35.9 H (31.0-35.0) g/dl RDW 14.6 (11.0-16.0) % Plt Count 148 L (160-400) X10*3/uL MPV 10.0 (9.4-12.3) fL Immature Gran % (Auto) 0.2 (0.0-0.4) % Neut % (Auto) 34.6 L (45-73) % Lymph % (Auto) 52.8 H (20-40) % [place] % (Auto) 8.7 (2-11) % Eos % (Auto) 2.2 (0-4) % Baso % (Auto) 1.5 (0-2) % Lymph # (Auto) 2.4 (1.2-4.9) X10*3/uL [place] # (Auto) 0.4 (0.1-1.2) X10*3/uL Eos # (Auto) 0.1 (0.0-0.4) X10*3/uL Baso # (Auto) 0.1 (0.0-0.2) X10*3/uL Abs Immat Gran (auto) 0.01 (0.00-0.03) X10*3/uL Absolute Neuts (auto) 1.6 L (2.0-8.3) x10*3/uL Absolute Nucleated RBC 0.000 (0.0-0.012) X10*3/uL Nucleated RBC % (auto) 0.0 (0.0-0.2) /100WBC Sodium 144 (135-145) mmol/L Potassium 4.1 D (3.3-5.1) mmol/L Chloride 111 H (96-108) mmol/L Carbon Dioxide 20 L (22-29) mmol/L Anion Gap 17 (12-20) BUN 10 (9-16) mg/dL Creatinine 0.60 (0.5-1.4) mg/dL Estim Creat Clear Calc 77.3 Estimated GFR > 60 Random Glucose 112 (60-115) mg/dL Calcium 9.1 (8.4-10.2) mg/dL Magnesium 1.7 (1.6-2.6) mg/dL Total Bilirubin 1.3 H (0.0-1.0) mg/dL AST 196 H (5-31) U/L ALT 108 H (0-31) U/L Alkaline Phosphatase 131 H (39-117) U/L Total Protein 8.2 H (6.5-8.0) g/dL Albumin 4.5 (3.5-5.0) g/dL Urine Color Dark Yellow Urine Appearance Clear Urine pH 5.5 (5.0-9.0) Ur Specific [place] 1.025 (1.005-1.025) Urine Protein 30 (1+) H (Neg-Trace) mg/dL Urine Glucose (UA) Negative (Negative) mg/dL Urine Ketones Trace (Negative) mg/dL Urine Blood Negative (Negative) Urine Nitrite Negative (Negative) Ur Leukocyte Esterase Negative (Negative) Urine RBC 0-2 (0-2) /HPF Urine WBC 0-5 (0-5) /HPF Ur Squamous Epith Cells 6-10 (0-2) /HPF Urine Bacteria None Seen (None Seen) Hyaline Casts 0-2 (0-2) /LPF Salicylates < 5.0 L (15-30) mg/dL Urine Opiates Screen Not Detected (Not Detect) Ur Buprenorphine Scrn Not Detected (Not Detect) ng/mL Ur Oxycodone Screen Not Detected (Not Detect) ng/mL Urine Methadone Screen Not Detected (Not Detect) ng/mL Urine Fentanyl Screen Not Detected (Not Detect) Acetaminophen < 3 (<30) mcg/mL Ur Barbiturates Screen Not Detected (Not Detect) Ur Phencyclidine Scrn Not Detected (Not Detect) Ur Amphetamines Screen Not Detected (Not Detect) U Benzodiazepines Scrn Not Detected (Not Detect) Urine Cocaine Screen Not Detected (Not Detect) U Marijuana (THC) Screen Not Detected (Not Detect) Ethyl Alcohol 337 H* mg/dL Discharge Plan Discharge Clinical Impression: Alcohol use disorder, moderate, dependence, Depression with suicidal ideation Patient Disposition: Still a Patient Prescriptions: No Action hydroxyzine pamoate 50 mg capsule 50 mg PO BID PRN (Reason: anxiety) Interventions: Mathews-Suicide Risk Severity Scale Last Done: 11/16/24 01:09 Print Language: Luxembourgish
[2024-11-15 22:46] LABS: Magnesium 1.7 mg/dL (1.6-2.6)
[2024-11-16 05:04] VITALS: BP 161/93; PULSE 91; RESP 18; TEMP 36.7; O2SAT 97
[2024-11-16] MEDS: Ondansetron ODT 4 MG TAB.RAPDIS TRANSLINGU (05:35)
[2024-11-16] MEDS: LORazepam 1 MG TABLET 2 MG PO ×2 (05:44→10:08)
[2024-11-16 08:33] VITALS: BP 143/81; PULSE 88; RESP 16; TEMP 36.9; O2SAT 98
--- NOTE | 2024-11-16 11:24 | MHC.CARE ---
CARE Team has requested [facility] place pt on a 7 day alert and do a 3 day follow up. CARE Team has activated the 3 day follow up and 7 day alert with [facility]
[2024-11-16 11:34] VITALS: BP 143/81; PULSE 88; RESP 16; TEMP 36.9; O2SAT 98
--- NOTE | 2024-11-18 08:56 | MHC.CARE ---
[facility] referral complete
== END 2024-11-16 12:28 | disposition home or self-care (01) ==
PROVIDERS: Emergency Provider Internal Medicine
DX: R45.851 Suicidal ideations (principal); F33.1 Major depressive disorder, recurrent, moderate; F10.20 Alcohol dependence, uncomplicated; Y90.8 Blood alcohol level of 240 mg/100 ml or more; G62.9 Polyneuropathy, unspecified; Z79.899 Other long term (current) drug therapy; Z51.81 Encounter for therapeutic drug level monitoring
CPT/HCPCS: 36415; 80053; 80143; 80179; 80307; 81001; 83735; 85025; 99284; 99285; S9485

== ENCOUNTER 2024-12-07 20:06 | Emergency (ER) | payer MEDICARE, SELFPAY ==
--- NOTE | 2024-12-07 20:12 | ED.MALEGU ---
HPI - Male Genitourinary General Stated complaint: Urinary tract concerns Related Data Home Medications ?Medication ?Instructions ?Recorded ?Confirmed hydroxyzine pamoate 50 mg capsule 50 mg PO BID PRN anxiety 07/22/23 11/16/24 Allergies Allergy/AdvReac Type Severity Reaction Status Date / Time No Known Allergies Allergy Verified 11/15/24 19:11 [No Known Allergies*] PMFSH Past Medical History Medical History Alcohol use disorder Multinodular thyroid Anxiety CHF (congestive heart failure) ETOH abuse Surgical History History of esophagogastroduodenoscopy (EGD) Hx of colonoscopy Hx of hysterectomy Family History Family History Mother Cancer Father No problems noted. Social History Social History Household Members: Significant Other Household Members Other:: roommate Housing: Apartment Do you presently have visiting nurse or other home services: No Alcohol intake: current Alcohol intake frequency: 3 or more drinks per day Alcohol type: wine Patient Tobacco Use Status: Never used Tobacco Second Hand Smoke Exposure: Yes Substance Use Type: Crack/Cocaine Advance Directives Date on File: 07/22/23 service: No Current occupational status: disabled Course Course Course Narrative: This is a Rapid Medical Exam performed in triage by Teagan Jett PA-C. Full HPI, ROS and PE to be performed by primary ED provider. 64 yo F w/PMHx ETOH abuse, anxiety, CHF, presenting to the ED c/o PE: Plan: Discharge Plan Discharge Prescriptions: No Action hydroxyzine pamoate 50 mg capsule 50 mg PO BID PRN (Reason: anxiety) Print Language: Macedonian
[2024-12-07 20:24] VITALS: BP 144/92; PULSE 102; O2SAT 99
[2024-12-07 20:25] VITALS: BP 155/103; PULSE 93; RESP 12; TEMP 36.7; O2SAT 95; BMI 23.2
[2024-12-07 20:40] VITALS: BP 137/97; PULSE 93; RESP 17; TEMP 36.7; O2SAT 96
[2024-12-07 20:41] LABS: MANUAL DIFF FLAG NO
[2024-12-07 20:50] LABS: Basophils Absolute Auto 0.1 X10*3/uL (0.0-0.2); Basophils Percent Auto 1.5 % (0-2); Eosinophils Absolute Auto 0.1 X10*3/uL (0.0-0.4); Eosinophils Percent Auto 1.7 % (0-4); Hematocrit 38.1 % (37.0-47.0); Imm Gran Abs Auto 0.01 X10*3/uL (0.00-0.03); Imm Gran Pct Auto 0.2 % (0.0-0.4); Lymphocytes Absolute Auto 2.6 X10*3/uL (1.2-4.9); Mean Corpuscular HGB Conc 36.7 g/dl (31.0-35.0); Mean Corpuscular Hemoglobin 36.7 pg (27.0-33.0); Mean Platelet Volume 9.7 fL (9.4-12.3); Monocytes Absolute Auto 0.4 X10*3/uL (0.1-1.2); Monocytes Percent Auto 7.8 % (2-11); Neutrophils Absolute Auto 1.6 x10*3/uL (2.0-8.3); Neutrophils Percent Auto 33.8 % (45-73); Platelet Count 137 X10*3/uL (160-400); Red Blood Count 3.81 X10*6/uL (4.20-5.50); Red Cell Distribution Width 13.7 % (11.0-16.0); White Blood Count 4.6 X10*3/uL (4.8-10.8)
[2024-12-07 21:01] LABS: Appearance Urine Cloudy; Color Urine Yellow; Glucose Urine UA Negative (Negative); Leukocyte Esterase Urine Trace (Negative); Nitrite Urine Negative (Negative); PH 5.5 (5.0-9.0); UMIC TRIGGER UACC YES; Urine Blood Trace (Negative); Urine Ketones Negative (Negative); Urine Protein Negative (Neg-Trace)
[2024-12-07 21:13] LABS: Bacteria Urine 4+ (None Seen); Hyaline Casts Urine 0-2 /LPF (0-2); WBC Urine 0-5 /HPF (0-5)
--- OUTSIDE RECORDS SUMMARY | 2024-12-07 21:24 | XMS_ITS | Data Portability ---
Author Organization [facility] [place] [facility] Address [address] [place] [id number] Care Team Providers Care Auto Headlight Mechanic Name Role Phone [facility] Referring Provider HIM [facility] OTHER Assessment No assessment recorded. Plan of Treatment Reminders Order Date Submit Date Provider Last Modified By Organization Details Last Modified Time Details Appointments None recorded. Lab BMP, serum or plasma [address], [address] 3 09:43:40 Referral None recorded. Procedures None recorded. Surgeries None recorded. Imaging electrocard iogram [address], [address] 3 05:00:47 Medication Orders None recorded. Patient TargetsNo targets recorded. Patient InstructionsNo instructions recorded. Reason for Referral None Reported. Results Created Date Observation Date Name Description Value Unit Range Abnormal Flag Note LastModifiedBy Organization Detail LastModifiedTime 03/02/20 23 03/03/2023 elect valentino leivagr am No observ ation record ed. [email or web address], [address] 03/03/2023 09:41:28 Result Notes None recorded. Procedures Surgical History None recorded. Imaging Results Imaging Date Name Status LastModified by Organization Details LastModified Time 03/03/2023 electrocardiogram completed [address], [address] 03/03/2023 09:41:28 Procedure Notes None recorded. Medical [...] /min 147 mm[Hg] 85 mm[Hg] Not Available [facility] - production 16:43:22 Social History None recorded. Functional Status None recorded. Mental Status None recorded. Family History Nothing Reported. Medical History No medical history recorded. Gynecological HistoryNo gynecological history recorded. Obstetrics History GPAL:G 0 P 0 0 0 0 Past Encounters Encounter ID Performer Location Encounter Start Date Encounter Closed Date Diagnosis/Indication Diagnosis SNOMED-CT Code Diagnosis ICD10 Code Diagnosis Note [id number] Moises Vizcaino MD Main - [address] [phone] 03/02/2023 18:12:52 03/02/2023 22:31:16 Alcohol intoxication 04661509 F10.929 Patient does not wish to go to ED for evaluation at this time. Unable to get IV placed for fluids, but BMP is stable. Low BUN and Wall[employer] in setting of malnutriti on and chronic alcohol use. Encouraged to seek alcohol detox treatment at ED. Patient precontemp lative. Discussed hydration in setting of alcohol use. Mild dehydration [id number] 119 108 E86.0 Normotensi ve to hypertensi ve. Unable to get IV [place] [id number] Michi Ratliff MD Main - [address] [phone] 11/28/2023 16:43:20 11/28/2023 19:18:58 Alcohol intoxication [id number] F10.929 [facility] 63-year-ol d [facility] a [facility] [...] Lyn Member ID Guarantor Name 03/02/2023 1 [facility] - DOS ON OR AFTER 2022 - DUAL ELIGIBLE - CORRECTION OPTIONS AND ONE CARE (MEDICARE REPLACEMENT/ADV ANTAGE - HMO) Nubia Patelben [id number] Nubia Joyce Mitchellgonzalesben 11/28/2023 1 [facility] - DOS ON OR AFTER 2022 - DUAL ELIGIBLE - CORRECTION OPTIONS AND ONE CARE (MEDICARE REPLACEMENT/ADV ANTAGE - HMO) Nubia Arabella [id number] Nubia A Arabella Notes Date Note Type Note Provider Name [...] .................... .................... .................... .................... .................... .................... . Business Services Tech Note From Cary Ashby: Community Business Services Tech Michelle Ashby CCA1 dispatched to a yellow for a 62 yof C/O dehydration. Pt reported to [facility] that she had been drinking wine. Upon [...] was receiving care from a psych provider. [facility] consulted; 4X IV attempt w/ no success, [...] . Disposition: Fulfilled Moises Vizcaino MD [address] [facility], [place], [address], [employer] 03/02/2023 21:04:12 11/28/2023 text/html CRC Nurse Triage [...] usually pretty active. [facility]address Michi Ratliff MD [address] [facility], [place], [address], [employer] 11/28/2023 16:49:27 OBGyn Episode No OBEpisode recorded.
--- OUTSIDE RECORDS SUMMARY | 2024-12-07 21:24 | XMS_ITS | Data Portability ---
Author Organization [facility], Main Office Address [address], [address] [place] [address] Care Team Providers Care Community Service Officer Name Role Phone PHILLIP PINZON - 2ND FLOOR OTHER STEPHANIE HOLCOMB Primary Care Provider [phone] Assessment Encounter Date Assessment Date Assessment LastModified by Organization Details LastModified Time 02/06/2024 02/06/2024 45 minutes spent on coordination of discharge. [email or web address] Not available 02/06/2024 14:13:31 Plan of Treatment [...] Address Organization Details Recorded Time Zonia morenoa 777599604 Active 2023 Carri Gabriel NP [address] [facility] [address], [address], [place], [address], [facility] 4 09:00:49 Bacteremi a 0266186 Active 2023 Carri Gabriel NP [address] [facility] [address] [facility], [address], [place], [address], [facility] 4 09:01:03 Gastroeso phageal reflux disease 424457970 Active 2023 Carri Gabriel NP [address] [facility] [address] [facility], [address], [place], [address], [facility] 4 09:01:21 Adult failure to thrive syndrome 686375292 Active 2023 Carri Gabriel NP [address] [facility] [address] [facility], [address], [place], [address], [facility] 4 09:01:32 Asthenia 56183963 Active 2023 Carri Gabriel NP [address] [facility] [address] [facility], [address], [place], [address], [facility] 4 09:01:39 Mixed anxiety and depressiv e disorder 541946357 Active 2023 Carri Gabriel NP [address] [facility] [address] [facility], [address], [place], [address], [facility] 4 09:01:55 Seasonal allergy 397074120 Active 2023 Carri Gabriel NP [address] [facility] [address] [facility], [address], [place], [address], [facility] 4 09:02:06 Substance abuse 04862708 Active 2023 Carri Gabriel NP [address] [facility] [address], [address], [place], [address], [facility] 4 09:03:33 Pyeloneph ritis 80430284 Active 2023 Carri Gabriel NP [address] [facility] [address] [facility], [address], [place], [address], [facility] 4 09:04:17 History of cocaine abuse 979734468316 106 Completed 202301/11/2024 Carri Gabriel NP [address] [facility] [address] [facility], [address], [place], [address], [facility] 4 09:08:03 Vitamin deficienc y 17932126 Active 2023 Carri Gabriel NP [address] [facility] [facility], [address], [place], [address], [facility] 4 09:15:37 Thyroid nodule 773206283 Completed 202301/11/2024 Carri Gabriel NP [address] [facility] [address] [facility], [address], [place], [address], [facility] 4 10:05:42 Heart failure 80401745 Active 2023 Carri Gabriel NP [address] [facility] [address] [facility], [address], [place], [address], [facility] 4 10:05:52 Hypertens rona disorder 64629239 Active 2023 Carri Gabriel NP [address], [place], [address], [facility] 4 10:07:05 Steatosis of liver 564416555 Completed 202301/11/2024 Avis Covington MD [address], [address], [place], [address], [facility] 4 22:04:40 Recurrent falls 740053389 Active 2023 Carri Gabriel NP [address] [facility] [address], [address], [place], [address], [facility] 4 10:22:04 Fracture of multiple ribs 1369001 Active 2023 Carri Gabriel NP [address] [facility], [address], [place], [address], [facility] 4 10:26:33 Alcohol abuse 30849719 Active 2023 Avis Covington MD [address] [facility] [address] [facility], [address], [place], [address], [facility] 4 19:45:27 History of cerebrova scular accident 498720600 Active 2023 Avis Covington MD [address], [address], [place], [address], [facility] 4 19:56:24 Neck pain 87328491 Active 2023 Avis Covington MD [address], [address], [place], [address], [facility] 4 21:47:58 Steatosis of liver 722716736 Active 2023 Avis Covington MD [address], [address], [place], [address], [facility] 4 22:04:40 Jose escobar 133822556 Active 2023 Avis Covington MD [address] [facility] [address], [address], [place], [address], [facility] 4 22:04:43 Problem Notes None recorded. Medical Equipment None Reported. Allergies No known drug allergies Vitals Date Recorded Body weight Heart rate Respiratory rate Body temperature Oxygen saturation Oxygen saturation in Arterial blood by Pulse oximetry Systolic blood pressure Diastolic blood pressure Provider Name and Address Organization Details Last Updated DateTime 4 08969.4 2 g 84 /min 18 /min 97.7 [degF] 97 % 97 % 112 mm[Hg] 68 mm[Hg] Carri Gabriel NP [address] [facility] [address], [facility] [address], [place], [address], [facility] 4 09:22:13 Date Recorded Body height Body mass index (BMI) Body weight Heart rate Respiratory rate Body temperature Oxygen saturation Oxygen saturation in Arterial blood by Pulse oximetry Systolic blood pressure Diastolic blood pressure Provider Name and Address Organization Details Last Updated DateTime 4 157.48 cm 23.6 kg/m2 10772.4 2 g 90 /min 18 /min 97.1 [degF] 96 % 96 % 137 mm[Hg] 83 mm[Hg] Avis Covington MD [address] [facility], [facility] [address], [place], [address], [facility] 4 19:03:29 Date Recorded Body height Heart rate Respiratory rate Body temperature Oxygen saturation Oxygen saturation in Arterial blood by Pulse oximetry Systolic blood pressure Diastolic blood pressure Provider Name and Address Organization Details Last Updated DateTime 4 157.48 cm 90 /min 18 /min 97.6 [degF] 97 % 97 % 128 mm[Hg] 76 mm[Hg] TALIA [place] NP [address] [facility] [address] [facility], [address], [place], [address], [facility] 4 15:19:27 Date Recorded Body height Body weight Body mass index (BMI) Heart rate Respiratory rate Body temperature Oxygen saturation Oxygen saturation in Arterial blood by Pulse oximetry Systolic blood pressure Diastolic blood pressure Provider Name and Address Organization Details Last Updated DateTime 4 157.48 cm 55123.4 5 g 22.7 kg/m2 91 /min 16 /min 97.7 [degF] 97 % 97 % 106 mm[Hg] 70 mm[Hg] Carri Gabriel NP [address] [facility], [address], [place], [address], [facility] 4 10:00:20 Date Recorded Body height Heart rate Respiratory rate Body temperature Oxygen saturation Oxygen saturation in Arterial blood by Pulse oximetry Systolic blood pressure Diastolic blood pressure Provider Name and Address Organization Details Last Updated DateTime 4 157.48 cm 100 /min 18 /min 97.8 [degF] 94 % 94 % 131 mm[Hg] 79 mm[Hg] TALIA [place] NP [address] [facility], [address], [place], [address], [facility] 4 13:52:59 Social History Question Answer Notes LastModified by Organizat ion Details LastModified Time Tobacco Smoking Status Never Smoker Carri Gabriel NP [address] [facility] [address] [facility], [address], [place], [address], [facility] 01/11/2024 09:49:55 Do You Have An [...] Do You Have A Medical Power Of Benefits Administrator? Yes Information not available 01/16/2024 What Was [...] Anxious, Or Unable To Sleep At Night)? [id number] Information not available 01/11/2024 Do You Use [...] B, unspecified formulation 8 completed Mimi [facility] 01/12/2024 12:31:23 Hep B, unspecified formulation 8 lizeth [facility] 01/12/2024 12:31:30 Hep B, unspecified formulation 2 completed Mimi verdugo, [facility] 01/12/2024 12:31:37 Tdap 4 completed Mimi [facility]ynn [facility] 01/12/2024 12:31:51 Td(adult) unspecified formulation 6 completed Mimi Wynn [facility] 01/12/2024 12:32:06 Pneumococcal conjugate PCV20, polysaccharide [id number] conjugate, adjuvant, PF 4 completed Mimi [facility]ynn [facility] 01/12/2024 12:35:15 pneumococcal polysaccharide PPV23 5 completed Mimi [facility]ynn [facility] 01/12/2024 12:35:31 influenza, unspecified formulation 2 completed Mimi [facility]ynn [facility] 01/12/2024 12:35:47 influenza, unspecified formulation 3 completed Mimi W[facility] 01/12/2024 12:35:55 Hep A, unspecified formulation 8 completed Mimi [facility] 01/12/2024 12:36:17 Hep A, unspecified formulation 2 completed Mimi [facility] 01/12/2024 12:36:24 SARS-COV-2 (COVID-19) vaccine, UNSPECIFIED 1 completed Mimi [facility] 01/12/2024 12:36:41 SARS-COV-2 (COVID-19) vaccine, UNSPECIFIED 1 completed Mimi [facility] 01/12/2024 12:36:53 SARS-COV-2 (COVID-19) vaccine, UNSPECIFIED 2 completed Mimi [facility] 01/12/2024 12:37:05 SARS-COV-2 (COVID-19) vaccine, UNSPECIFIED 3 completed Mimi [facility] 01/12/2024 12:37:21 SARS-COV-2 (COVID-19) vaccine, UNSPECIFIED 4 completed Mimi verdugo [place] [facility] 01/12/2024 12:37:31 Past Encounters Encounter ID Performer Location Encounter Start Date Encounter Closed Date Diagnosis/Indication Diagnosis SNOMED-CT Code Diagnosis ICD10 Code Diagnosis Note [id number] Carri Gabriel NP [address] [address] 01/11/2024 08:25:19 01/16/2024 08:36:09 Pyelonephritis 20590234 N12 hosp noted ecoli in blood and urine cultures tx with iv abx and transition ed to po cefuroxime 250 mg po bid x 10 more days heremonito rcbc and bmp weekly Bacteremia 4502942 R78.8 1 noted ecoli in blood and urine cultures tx with iv abx and transition ed to po cefuroxime 250 mg po bid x 10 more days heremonito rcbc and bmp weekly Asthenia 46625443 R53.1 PT/OT to eval and treatmonit or Adult fail ure to thrive syndrome 177936678 R62.7 pt with failure to thrive and weakness for 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 for better nutritiono n ensure tidmonitor Hypomagnesemia 660059545 E83.42 magnesium oxide 400 mg po dailymonit or Gastroesop hageal reflux disease 274420911 K21.9 lansoprazo le 30 mg po dailymonit or Mixed anxi ety and depressive disorder 525706167 F41.8 hydroxyzin e 50 mg cap po bid prn anxietyven lafaxine 150 mg cap po dailygabap entin 100 mg po tid (was decreased in hosp)monit or Seasonal allergy 6309738 04 J30.2 cetirizine 10 mg po dailymonit or Alcohol abuse 67969097 F 10.10 with cocaine and etoh abusetx with phenobarb protocol, folic acid and thiamine inpthad visual hallucinat ions in hosp now resolvedmo nitor for s/s of etoh withdrawal continue supportive care and encourage abstinence monitor Substance abuse 90943401 F19.10 with cocaine and etoh abusetx with phenobarb protocol, folic acid and thiamine inpthad visual hallucinat ions in hosp now resolvedmo nitor for s/s of etoh withdrawal continue supportive care and encourage abstinence monitor Vitamin deficiency 51904 002 E56.9 vitamin def unspecifie dcontvit d2 1250 mcg po q weekvit b12 1000 mcg po dailymonit or Heart failure 69148274 I 50.9 hx of heart failureunc lear why she was taken off metoprolol in hospmonito r hr and bp closely q shift here for need Hypertensive disorder 38 448311 I10 hx of heart failureunc lear why she was taken off metoprolol succ in hosp( was on 25 mg po qd)monitor hr and bp closely q shift here for need Steatosis of liver 1007 K76.0 noted steatoiss of liver with ETOH use hxmonitor lftsdc tylenol with elevated liver enzymesmon itor Thyroid nodule 557706968 E04.1 hx offu outpt as needed Recurrent falls 93751188 2 R29.6 pt has hx of furniture walking and fallsthera py to treat and eval for strength, balance, gait, mobility, safety awarenessw alker usesupport rona caremonito r Fracture o f multiple ribs 5152249 S22.41XS hx of 6th and 7th right rib fracturesp t reports no paincont incentive spirometer no brusing or deformity notedmonit or for sequelae [id number] [facility] [address] 01/16/2024 18:35:58 01/22/2024 09:48:54 Pyelonephritis 41325312 N10 Grew e. coli, same strain, from urine and blood.Cont inue cefuroxime 250 mg BID until 01/19 to complete 2 wk course of abxs.Monit or sxs and labs. Bacteremia 1119540 R78.8 1 As above. Asthenia 70118938 R53.1 Very deconditio [place].Needs PT/OT for strengthen ing, balance, gait training, safety and function.C ontinue fall precaution s.Monitor for safety.Wit h continued falling since here. Needs encouragem ent to use walker ALL THE TIME! Adult fail ure to thrive syndrome 917826439 R62.7 Likely due to EtOH abuse.Enco urage cessation and improved nutrition. [employer] consult. Hypomagnesemia 506584822 E83.42 Continue magnesium oxide 400 mg qdMonitor levels Gastroesop hageal reflux disease 694614820 K21.9 Continue lansoprazo le 30 mg qdMonitor GI sxs Mixed anxi ety and depressive disorder 696443655 F41.8 Gabapentin was decreased inpt due to concerns about oversedati on, pt is requesting return to previous dose.Will increase to 100 mg BID with 200 mg at bedtime.Co ntinue venlafaxin e 150 mg qd and hydroxyzin e 50 mg BID prn anxietyMon itor mood.Consu lt psych prn Alcohol abuse 76525225 F 10.10 With hx of withdrawal , had some evidence inpt, txed with phenobarb protocol.W as txed with folic acid and thiamine inpt., but not continued. Will add thiamine 100 mg qd and Folic Acid 1 mg qd.Monitor CBC.Contin ue to encourage cessation. Seasonal allergy 8525388 04 J30.2 Continue cetirizine 10 mg qdMonitor sxs Substance abuse 12651162 F19.10 As above.Also hx of cocaine use.Encour age abstinence . Vitamin deficiency 73626 002 E56.8 Continue ergocalcif jo 50,000 IU weekly and vit b12 1000 mcg qdMonitor levels prn. Heart failure 95794607 I 50.32 In hx, but recent echo was WNL.Appear s euvolemic. Monitor resp. status, fluid status, wts and labs. Hypertensive disorder 38 358124 I10 BP good since here, off meds.Monit or need to restart metoprolol Steatosis of liver 1007 K70.30 Hx ofAbd is sl. distended, but imaging inpt did not show any ascites.Solomon d elevated LFTs.No APAP.F/U with GI as outpt. Recurrent falls 65438235 2 R29.6 As above. Fracture o f multiple ribs 9171277 S22.41XS Unclear how old these are.No pain.Monit or Multinodular goiter 2375 74602 E04.2 Seen by endocrine surgeon in 2019.His [...] as an outpt. History of cerebrovascular accident 636225516 Z86.73 Old right lacunar infarct seen on head CT.No sequelae.M onitor Neck pain 04950822 M54.2 Likely after fall last night.No point tenderness .Will start lidocaine patch 12 hrs/day.Mo nitor sxs. [id number] TALIA [place] NP [address] [address] 01/25/2024 15:18:26 02/06/2024 13:24:09 Pyelonephritis 04675195 N10 Grew e. coli, same strain, from urine and blood.Comp leted cefuroxime 250 mg BID on 01/19 to complete 2 wk course of abxs.Clini luba improving. VS and labs stable so far.Monito r sxs and labs. Bacteremia 2507734 R78.8 1 As above. Asthenia 05992914 R53.1 Very deconditio [place].Needs PT/OT for strengthen ing, balance, gait training, safety and function.C ontinue fall precaution s.Monitor for safety.Wit h continued falling since here. Needs encouragem ent to use walker ALL THE TIME! Alcohol abuse 92423307 F 10.10 With hx of withdrawal , had some evidence inpt, txed with phenobarb protocol.W as txed with folic acid and thiamine inpt., but not continued. Will add thiamine 100 mg qd and Folic Acid 1 mg qd.Monitor CBC.Contin ue to encourage cessation. Adult fail ure to thrive syndrome 598986116 R62.7 Likely due to EtOH abuse.Enco urage cessation and improved nutrition. [employer] consult. Hypomagnesemia 726855075 E83.42 Mg 1.6Increas ed magnesium oxide 400 mg to bidMonitor levels - repeat next week Gastroesop hageal reflux disease 459085899 K21.9 Continue lansoprazo le 30 mg qdMonitor GI sxs Mixed anxi ety and depressive disorder 381075207 F41.8 Gabapentin was decreased inpt due to concerns about oversedati on, pt is requesting return to previous dose.Incre ased to 100 mg BID with 200 mg at bedtime - batool. well so far.Contin ue venlafaxin e 150 mg qd and hydroxyzin e 50 mg BID prn anxietyMon itor mood.Consu lt psych prn Seasonal allergy 9535826 04 J30.2 Continue cetirizine 10 mg qdMonitor sxs Substance abuse 90138288 F19.10 As above.Also hx of cocaine use.Encour age abstinence . Vitamin deficiency 21468 002 E56.8 Continue ergocalcif jo 50,000 IU weekly and vit b12 1000 mcg qdMonitor levels prn. Heart failure 46314925 I 50.32 In hx, but recent echo was WNL.Appear s euvolemic. Monitor resp. status, fluid status, wts and labs. Hypertensive disorder 38 736224 I10 BP good since here, off meds.Monit or need to restart metoprolol Steatosis of liver 1007 K70.30 Hx ofAbd is sl. distended, but imaging inpt did not show any ascites.Solomon d elevated LFTs.No APAP.F/U with GI as outpt. Multinodular goiter 2375 22312 E04.2 Seen by endocrine surgeon in 2019.His [...] do this as an outpt. Recurrent falls 74623614 2 R29.6 As above. Fracture o f multiple ribs 9287490 S22.41XS Unclear how old these are.No pain.Monit or History of cerebrovascular accident 549305793 Z86.73 Old right lacunar infarct seen on head CT.No sequelae.M onitor Neck pain 45789364 M54.2 Likely after fall last night.No point tenderness .Will start lidocaine patch 12 hrs/day.Liban herndon sxs. [id number] Carri Gabriel NP [address] [address] 02/01/2024 09:57:59 02/06/2024 15:07:03 Pyelonephritis 71387129 N10 resolved, improvedGr ew e. coli, same strain, from urine and blood.Comp leted cefuroxime 250 mg BID on 01/19 to complete 2 wk course of abxs.Monit or sxs and labs. Bacteremia 2231034 R78.8 1 As above. Asthenia 84460042 R53.1 Very deconditio [place]. but improving with therapyNee ds PT/OT for strengthen ing, balance, gait training, safety and function.C ontinue fall precaution s.Monitor for safety.Wit h continued falling since here. Needs encouragem ent to use walker ALL THE TIME! Alcohol abuse 54665040 F 10.10 With hx of withdrawal , had some evidence inpt, txed with phenobarb protocol.W as txed with folic acid and thiamine inpt., but not continued. contthiami ne 100 mg qdFolic Acid 1 mg qd.Continu e to encourage cessation. Adult fail ure to thrive syndrome 119395453 R62.7 Likely due to EtOH abuse. improvingE ncourage cessation and improved nutrition. [facility] consult for nutritiona l deficienci es Hypomagnesemia 286237829 E83.42 Mg 1.6 now 1.8 improving on supplement scontmagne sium oxide 400 mg to bidMonitor levels - repeat next week Gastroesop hageal reflux disease 045755394 K21.9 Continuela nsoprazole 30 mg qdMonitor GI sxs Mixed anxi ety and depressive disorder 910545071 F41.8 note: Gabapentin was decreased inpt due to concerns about oversedati onwhile at regalIncre ased to 100 mg BID with 200 mg at bedtime - batool. well so far. no s/s of sedationve nlafaxine 150 mg qdhydroxyz ine 50 mg BID prn anxietyMon itor mood.Consu lt psych prn Seasonal allergy 1756109 04 J30.2 Continuece tirizine 10 mg qdMonitor sxs Substance abuse 34367157 F19.10 As above.Also hx of cocaine use.Encour age abstinence . Vitamin deficiency 27986 002 E56.8 Continueer gocalcifer ol 50,000 IU weeklyvit b12 1000 mcg qdMonitor levels prn. Heart failure 94057428 I 50.32 In hx, but recent echo was WNL.Appear s euvolemic. Monitor resp. status, fluid status, wts and labs. Hypertensive disorder 38 344527 I10 BP good since here, off meds.Monit or need to restart metoprolol Steatosis of liver 1007 K70.30 seems improvedHx ofAbd is sl. distended, but imaging inpt did not show any ascites.Solomon d elevated LFTs.No APAP.F/U with GI as outpt. Multinodular goiter 2375 51396 E04.2 Seen by endocrine surgeon in 2019.His [...] do this as an outpt. Recurrent falls 57858343 2 R29.6 As above. Fracture o f multiple ribs 2907521 S22.41XS Unclear how old these are. no pain, bruising or deformitie sNo pain.Monit or History of cerebrovascular accident 999876723 Z86.73 Old right lacunar infarct seen on head CT.No sequelae.M onitor [id number] TALIA [place], [facility] [address] [place] [address] 02/06/2024 13:37:38 02/12/2024 19:23:35 Pyelonephritis 65529889 N10 E. ColiComple benita cefuroxime 250 mg [...] to decline after dischargeM aintain fluids. Bacteremia 9575990 R78.8 1 As above. Asthenia 21772794 R53.1 Very deconditio [place]. but improving with therapyMee ting goals for d/c home tomorrow with support of family and services.C ontinue fall precaution s.Encourag e pt. to use her walker ALL THE TIME! Alcohol abuse 26578370 F 10.10 With hx of withdrawal , had some evidence inpt, txed with phenobarb protocol.W as txed with folic acid and thiamine inpt., but not continued. contthiami ne 100 mg qdFolic Acid 1 mg qd.Continu e to encourage cessation. Adult fail ure to thrive syndrome 897886861 R62.7 Likely due to EtOH abuse. improvingE ncourage cessation and improved nutrition. [facility] [employer] consult for nutritiona l deficienci es Hypomagnesemia 252948530 E83.42 Mg 1.6 -> 1.8 -> 1.5continu e magnesium oxide 400 mg to bidMonitor levels as outpt. Gastroesop hageal reflux disease 992611222 K21.9 Continuela nsoprazole 30 mg qdMonitor GI sxs Mixed anxi ety and depressive disorder 532940753 F41.8 note: Gabapentin was decreased inpt due to concerns about oversedati onwhile at regalIncre ased to 100 mg BID with 200 mg at bedtime - batool. well so far. no s/s of sedationCo ntinue:aleksey lafaxine 150 mg qdhydroxyz ine 50 mg BID prn anxietyMon itor mood as outpt. Seasonal allergy 6848442 04 J30.2 Continuece tirizine 10 mg qdMonitor sxs Substance abuse 67014566 F19.10 As above.Also hx of cocaine use.Encour age abstinence . Vitamin deficiency 28241 002 E56.8 Continueer gocalcifer ol 50,000 IU weeklyvit b12 1000 mcg qdMonitor levels prn. Heart failure 72854361 I 50.32 In hx, but recent echo was WNL.Appear s euvolemic. Monitor resp. status, fluid status, wts and labs. Hypertensive disorder 38 389819 I10 BP good since here, off meds.Monit or need to restart metoprolol Steatosis of liver 1007 K70.30 seems improvedHx ofAbd is sl. distended, but imaging inpt did not show any ascites.Solomon d elevated LFTs.No APAP.F/U with GI as outpt. Multinodular goiter 2375 77396 E04.2 Seen by endocrine surgeon in 2019.His [...] do this as an outpt. Recurrent falls 56659641 2 R29.6 As above. Fracture o f multiple ribs 4710559 S22.41XS Unclear how old these are. no pain, bruising or deformitie sNo pain.Monit or History of cerebrovascular accident 522802787 Z86.73 Old right lacunar infarct seen on head CT.No sequelae.M onitor Health Concerns Section Related Observation LastModified by Organization Detai ls LastModified Time None Recorded Concern Status LastModified by Organization Details LastModified Time None Recorded Advance Directives Directive Y: Payers Encounter Date Sequence Insurance Name Policy Number Policy Lyn Covered Member ID Lyn Member ID Guarantor Name 01/11/2024 1 MEDICARE B-ND: [facility] Nubia Patels [id number] Nubia Patels 01/16/2024 1 MEDICARE B-[place]: [facility] Nubia A Griess [id number] Nubia Griess 01/25/2024 1 MEDICARE B-[place]: [facility] Nubia A Griess [id number] Nubia Griess 02/01/2024 1 MEDICARE B-[place]: [facility] Nubia Joyce Griess [id number] 8 Nubia Griess 02/06/2024 1 MEDICARE B-ND: [facility] Nubia A Griess [id number] 8 Nubia Patels Notes Date Note Type Note Provider Name and Address Organization Details Recorded Time 4 text/html Pt is seen for an initial intake. Nubia is a 63 yo female with pmh HTN, GERD, HF, ETOH use with hx of withdrawal, anxiety, depression and multinodular thyroid fell out of bed and presented to [facility] ED on 01/05/24-01/10/24 found to have [...] full code 01/10/24 Carri Gabriel NP [address] [facility] [address], [address], [place], [address], [facility] - [employer] 01/11/2024 10:30:51 4 text/html This is a 63 yo woman with EtOH use disorder who is here for rehab after an acute hospitalization for pyelonephritis.She presented to the [facility] ED on 01/04 with c/o weakness, [...] and multinodular goiter. Avis Covington MD [address] [facility] [address], [address], [place], [address], [facility] [employer] 01/16/2024 22:04:59 4 text/html Nubia is seen today for an acute visit. This is a 63 yo woman with EtOH use disorder who is here for rehab after an acute hospitalization for pyelonephritis.She presented to the [facility] ED on 01/04 after falling OOB [...] plans to explore recovery coaching and possibly [employer] or other non step support groups.Hypomagnesemia repleted [...] and multinodular goiter. TALIA HOUSTON, GRETA [address] [facility], [address], [place], [address], [facility] - [employer] 01/25/2024 15:39:44 4 text/html Pt is seen today for an acute visit. Her PMH includes HTN, GERD, CHF pEF, ETOH use disorder with hx of withdrawal, anxiety, depression and multinodular goiter. Nubia is a 63 yo female who presented to [facility] ED on 01/05/24-01/10/24 found to have acute pyelonephritis. It was felt she would benefit from rehab for generalized weakness, failure to thrive with poor nutrition, and therapy. [facility] Nubia is making gains and doing [...] cefuroxime in hosp. Carri Gabriel NP [address] [facility] [address], [address], [place], [address], [facility] - [employer] 02/01/2024 11:47:10 4 text/html Nubia is seen today for discharge.She is planning on going home tomorrow with support of family and services. She is a 63 yo female admitted to [facility] from [facility] on 01/09 for continued care and rehab after a hospitalization related due pyelonephritis. She presented to [facility] 01/04 with weakness and falls. Also [...] and multinodular goiter. TALIA HOUSTON NP [address] [facility] [address], [address], [place], [address], [facility] [employer] 02/06/2024 14:26:41 OBGyn Episode No OBEpisode recorded.
--- OUTSIDE RECORDS SUMMARY | 2024-12-07 21:25 | XMS_ITS | Clinical Summary ---
Author Organization [facility] Facility Address [address] [address] Care Team Providers Care Automotive Warranty Administrator Name Role Phone Le Haddad DO Primary [...] age to complete this topic Care Teams Automotive Warranty Administrator Relationship Specialty Start Date End Date Le Haddad DO PCP - General 09/14/20
[2024-12-07 21:28] LABS: Alanine Aminotransferase 61 U/L (0-31); Albumin Level 4.5 g/dL (3.5-5.0); Alkaline Phosphatase 111 U/L (39-117); Anion Gap 19 (12-20); Aspartate Amino Transferase 143 U/L (5-31); Bilirubin Total 1.4 mg/dL (0.0-1.0); Blood Urea Nitrogen 5 mg/dL (9-16); Calcium 9.1 mg/dL (8.4-10.2); Carbon Dioxide 18 mmol/L (22-29); Chloride 110 mmol/L (96-108); Creatinine Clr Calc Pharmacy 79.4; Estimated Glomerular Filt Rate > 60; Ethanol 307 mg/dL; Glucose Random 116 mg/dL (60-115); Magnesium 1.6 mg/dL (1.6-2.6); Potassium 3.8 mmol/L (3.3-5.1); Sodium 143 mmol/L (135-145); Total Protein 7.4 g/dL (6.5-8.0)
[2024-12-07 22:00] VITALS: BP 116/75; PULSE 95; RESP 18; TEMP 36.7; O2SAT 98
[2024-12-07] MEDS: cephALEXin 500 MG CAPSULE PO (22:12)
--- NOTE | 2024-12-07 22:52 | ED.FEMALEGU ---
HPI - Female Genitourinary General Chief complaint: Urogenital-Female Stated complaint: Urinary tract concerns Time Seen by Provider: 12/07/24 20:23 Source: patient Limitations: other (intoxicated) History of Present Illness ED Provider: Molly Gallagher PA-C HPI Narrative: 64-year-old female with a alcohol use disorder, recurrent urinary tract infections, who presents with dysuria. Associated foul smelling urine that is brown. Patient states she has had symptoms for a month. Denies abdominal pain, back pain, nausea vomiting or fever. Patient admits to drinking a bottle of wine today. Related Data Home Medications ?Medication ?Instructions ?Recorded ?Confirmed hydroxyzine pamoate 50 mg capsule 50 mg PO BID PRN anxiety 07/22/23 11/16/24 Previous Rx's ?Medication ?Instructions ?Recorded cephalexin 500 mg capsule 500 mg PO BID #14 caps 12/07/24 Allergies Allergy/AdvReac Type Severity Reaction Status Date / Time No Known Allergies Allergy Verified 12/07/24 20:28 [No Known Allergies*] Review of Systems Review of Systems: Yes all other systems are reviewed and are negative Constitutional: Constitutional: Denies fatigue and Denies fever(s) Cardiovascular: Cardiovascular: Denies chest pain Gastrointestinal: Gastrointestinal: Denies abdominal pain, Denies nausea and Denies vomiting Genitourinary: Genitourinary: Reports dysuria and Denies flank pain Endocrine: Endocrine: Denies fatigue PMFSH Past Medical History Attestation statement: The following information was validated with the patient. Medical History Alcohol use disorder Multinodular thyroid Anxiety CHF (congestive heart failure) ETOH abuse Surgical History History of esophagogastroduodenoscopy (EGD) Hx of colonoscopy Hx of hysterectomy Family History Family History Mother Cancer Father No problems noted. Social History Social History Household Members: Significant Other Household Members Other:: roommate Housing: Apartment Do you presently have visiting nurse or other home services: No Alcohol intake: current Alcohol intake frequency: 3 or more drinks per day Alcohol type: wine Patient Tobacco Use Status: Never used Tobacco Smoked in Last 30 Days: No Second Hand Smoke Exposure: Yes Use of substances other than those prescribed or required for medical reasons: No Substance Use Type: Crack/Cocaine Advance Directives: Yes Advance Directives on File: Yes Advance Directives Date on File: 07/22/23 service: No Current occupational status: disabled Physical Exam Vital Signs: Vital Signs: Last Vital Signs Temp 98.1 F 12/07/24 23:14 Pulse 89 12/07/24 23:14 Resp 15 12/07/24 23:14 BP 112/71 12/07/24 23:14 Pulse Ox 95 12/07/24 23:14 O2 Del Method Room Air, Blow By 12/07/24 23:14 BMI result Body Mass Index 23.2 Const: Other: Alert Orientation/consciousness: patient oriented x3 HEENT: Other: Alcohol halitosis Resp: Effort & Inspection: normal respiratory effort Cardio: Other: Normal peripheral perfusion Skin: Other: Warm dry no rash Neuro: General: patient oriented x3, gait normal, no focal motor deficits and CN's II-XI intact bilaterally Psych: Other: Intoxicated Medications Administered Discontinued Medications Generic Name Dose Route Start Last Admin Trade Name Freq PRN Reason Stop Dose Admin Cephalexin HCl 500 mg 12/07/24 21:41 12/07/24 22:12 Cephalexin 500 Mg Capsule PO 12/07/24 21:42 500 mg ONCE ONE Administration Medical Decision Making Medical Decision Making [facility] Narrative: 64-year-old female with a alcohol use disorder, recurrent urinary tract infections, who presents with dysuria. Associated foul smelling urine that is brown. Patient states she has had symptoms for a month. Denies abdominal pain, back pain, nausea vomiting or fever. Patient admits to drinking a bottle of wine today. Problem: Alcohol use disorder, recurrent urinary tract infections History: Per patient I have considered the following differential diagnoses: UTI, pyelonephritis, renal colic Plan: Patient here with symptoms of dysuria, we will screen basic labs and a urinalysis. She has no back, flank or abdominal pain to suggest renal colic. She has no active nausea vomiting or fever to suggest pyelonephritis. Imaging not warranted I have independently reviewed the following tests: Labs: No leukocytosis, not anemic, no electrolyte abnormality, LFTs at baseline, urine appears questionably infected, given she is symptomatic I will treat Lab Data 12/07/24 20:38 12/07/24 20:58 Labs: Lab Results 12/07/24 12/07/24 12/07/24 Range/Units 20:38 20:55 20:58 WBC 4.6 L (4.8-10.8) X10*3/uL RBC 3.81 L (4.20-5.50) X10*6/uL Hgb 14.0 (12.0-16.0) g/dl Hct 38.1 (37.0-47.0) % MCV 100.0 H (80.0-98.0) fL MCH 36.7 H (27.0-33.0) pg MCHC 36.7 H (31.0-35.0) g/dl RDW 13.7 (11.0-16.0) % Plt Count 137 L (160-400) X10*3/uL MPV 9.7 (9.4-12.3) fL Immature Gran % (Auto) 0.2 (0.0-0.4) % Neut % (Auto) 33.8 L (45-73) % Lymph % (Auto) 55.0 H (20-40) % Morris % (Auto) 7.8 (2-11) % Eos % (Auto) 1.7 (0-4) % Baso % (Auto) 1.5 (0-2) % Lymph # (Auto) 2.6 (1.2-4.9) X10*3/uL Morris # (Auto) 0.4 (0.1-1.2) X10*3/uL Eos # (Auto) 0.1 (0.0-0.4) X10*3/uL Baso # (Auto) 0.1 (0.0-0.2) X10*3/uL Abs Immat Gran (auto) 0.01 (0.00-0.03) X10*3/uL Absolute Neuts (auto) 1.6 L (2.0-8.3) x10*3/uL Absolute Nucleated RBC 0.000 (0.0-0.012) X10*3/uL Nucleated RBC % (auto) 0.0 (0.0-0.2) /100WBC Sodium 143 (135-145) mmol/L Potassium 3.8 (3.3-5.1) mmol/L Chloride 110 H (96-108) mmol/L Carbon Dioxide 18 L (22-29) mmol/L Anion Gap 19 (12-20) BUN 5 L (9-16) mg/dL Creatinine 0.61 (0.5-1.4) mg/dL Estim Creat Clear Calc 79.4 Estimated GFR > 60 Random Glucose 116 H (60-115) mg/dL Calcium 9.1 (8.4-10.2) mg/dL Magnesium 1.6 (1.6-2.6) mg/dL Total Bilirubin 1.4 H (0.0-1.0) mg/dL AST 143 H (5-31) U/L ALT 61 H (0-31) U/L Alkaline Phosphatase 111 (39-117) U/L Total Protein 7.4 (6.5-8.0) g/dL Albumin 4.5 (3.5-5.0) g/dL Urine Color Yellow Urine Appearance Cloudy Urine pH 5.5 (5.0-9.0) Ur Specific [place] 1.010 (1.005-1.025) Urine Protein Negative (Neg-Trace) mg/dL Urine Glucose (UA) Negative (Negative) mg/dL Urine Ketones Negative (Negative) mg/dL Urine Blood Trace H (Negative) Urine Nitrite Negative (Negative) Ur Leukocyte Esterase Trace H (Negative) Urine RBC 3-5 H (0-2) /HPF Urine WBC 0-5 (0-5) /HPF Ur Squamous Epith Cells 3-5 (0-2) /HPF Urine Bacteria 4+ (None Seen) Hyaline Casts 0-2 (0-2) /LPF Ethyl Alcohol 307 H* mg/dL Discharge Plan Discharge Clinical Impression: UTI (urinary tract infection), Alcohol intoxication Patient Disposition: Home, Self-Care Instructions: Urinary Tract Infection in Women (ED), Alcohol Intoxication (ED) Additional Instructions: Alcohol use disorder You were seen in the Emergency Department today for treatment of alcohol use disorder.? You may have been given medications to help with your withdrawal symptoms.? Please do not drink alcohol with them. This is very dangerous and can cause respiratory depression or other adverse reactions depending on the medication. If you would like to cut down or stop your alcohol use please consider calling our outpatient Addiction Treatment office:? [facility] (M-F 9a-5p) [address] [place] [address]. [address] ? You have also been given a list of treatment providers in the area that can assist as well.? If you experience seizures, vomiting blood, black stools, falls, severe headache, chest pain, fevers, trouble breathing, hallucinations or any other concerns you need to call 911 or seek immediate care. Please stay hydrated. You were also found to have a urinary tract infection, see home care instructions. Take the cephalexin as directed. Follow up with your primary care provider next week. Prescriptions: New cephalexin 500 mg capsule 500 mg PO BID Qty: 14 0RF No Action hydroxyzine pamoate 50 mg capsule 50 mg PO BID PRN (Reason: anxiety) Interventions: ED Discharge Assessment Last Done: 12/07/24 23:14 Discharge Date/Time: 12/07/24 23:17 Print Language: Azeri
[2024-12-07 22:53] VITALS: BP 112/71; PULSE 89; RESP 15; TEMP 36.7; O2SAT 95
[2024-12-07 23:14] VITALS: BP 112/71; PULSE 89; RESP 15; TEMP 36.7; O2SAT 95
== END 2024-12-07 23:17 | disposition home or self-care (01) ==
PROVIDERS: Physician Assistant Medical; Emergency Provider Emergency Medicine
DX: N39.0 Urinary tract infection, site not specified (principal); F10.220 Alcohol dependence with intoxication, uncomplicated; Y90.8 Blood alcohol level of 240 mg/100 ml or more; Z87.440 Personal history of urinary (tract) infections
CPT/HCPCS: 36415; 80053; 80307; 81001; 81003; 83735; 85025; 99283; 99284

== ENCOUNTER 2025-02-19 12:06 | Outpatient (REF) | payer MEDICARE, SELFPAY ==
[2025-02-19 13:32] LABS: MANUAL DIFF FLAG NO
[2025-02-19 13:42] LABS: Basophils Percent Auto 0.8 % (0-2); Eosinophils Absolute Auto 0.1 X10*3/uL (0.0-0.4); Eosinophils Percent Auto 1.5 % (0-4); Hematocrit 40.7 % (37.0-47.0); Hemoglobin 13.7 g/dl (12.0-16.0); Imm Gran Abs Auto 0.01 X10*3/uL (0.00-0.03); Imm Gran Pct Auto 0.2 % (0.0-0.4); Lymphocytes Percent Auto 42.7 % (20-40); Mean Corpuscular HGB Conc 33.7 g/dl (31.0-35.0); Mean Corpuscular Hemoglobin 36.2 pg (27.0-33.0); Mean Corpuscular Volume 107.7 fL (80.0-98.0); Mean Platelet Volume 10.3 fL (9.4-12.3); Monocytes Absolute Auto 0.4 X10*3/uL (0.1-1.2); Monocytes Percent Auto 9.3 % (2-11); Neutrophils Absolute Auto 2.1 x10*3/uL (2.0-8.3); Neutrophils Percent Auto 45.5 % (45-73); Platelet Count 125 X10*3/uL (160-400); Red Blood Count 3.78 X10*6/uL (4.20-5.50); Red Cell Distribution Width 14.2 % (11.0-16.0); White Blood Count 4.7 X10*3/uL (4.8-10.8)
[2025-02-19 13:49] LABS: Estimated Average Glucose 103 mg/dL; Hemoglobin A1C 118.9641 umol/L; Hemoglobin A1c % 5.2 % (<6.0)
--- OUTSIDE RECORDS SUMMARY | 2025-02-19 14:01 | XMS_ITS | Clinical Summary ---
Author Organization [facility] Facility Address [address] [address] Care Team Providers Care Payment Manager Name Role Phone Le Haddad DO Primary [...] Colonoscopy 2008 Colorectal Cancer Screening: Sigmoidoscopy 2008 Pneumococcal Vaccine: 50+ Ye ars (1 of - PCV) 2009 Influenza Vaccine (Season Ended) 2025 Hepatitis B Vaccine Aged Out No longe r eligible based on patient's age to complete this topic Care Teams Payment Manager Relationship Specialty Start Date End Date Le Haddad DO PCP - General 09/14/20
[2025-02-19 14:12] LABS: Alanine Aminotransferase 47 U/L (0-31); Albumin Level 4.7 g/dL (3.5-5.0); Alkaline Phosphatase 123 U/L (39-117); Anion Gap 17 (12-20); Aspartate Amino Transferase 171 U/L (5-31); Blood Urea Nitrogen 6 mg/dL (9-16); Calcium 9.8 mg/dL (8.4-10.2); Carbon Dioxide 20 mmol/L (22-29); Chloride 110 mmol/L (96-108); Cholesterol 267 mg/dL (<200); Estimated Glomerular Filt Rate > 60; Glucose Random 112 mg/dL (60-115); HDL Cholesterol 107 mg/dL (>40); Iron 189 mcg/dL (30-160); LDL Cholesterol Calculated 131 mg/dL (<100); Percent Iron Saturation 68 % (15-50); Potassium 4.1 mmol/L (3.3-5.1); Sodium 143 mmol/L (135-145); Total Iron Binding Capacity 276 mcg/dL (228-428); Total Protein 8.1 g/dL (6.5-8.0); Triglycerides 148 mg/dL (<150); Unsaturated Iron Binding 87 ug/dL
[2025-02-19 14:18] LABS: Ferritin 555 ng/mL (10-250); Free T4 (Free Thyroxine) 0.94 ng/dL (0.71-1.85); Thyroid Stimulating Hormone 0.27 uIU/mL (0.32-4.0)
[2025-02-19 14:19] LABS: Creatinine Urine 146.51 mg/dL; Microalbum/Creatinine Ratio Ur 24.5 ug/mg cr (<30)
[2025-02-19 14:23] LABS: Folate 3.8 ng/mL (> or = 4.0); Vitamin B12 385 pg/mL (200-900)
== END 2025-02-19 12:07 | disposition home or self-care (01) ==
LOC: HO.HHCL 12:06
PROVIDERS: PCP Family Medicine; Visit Provider Family Medicine
DX: Z00.00 Encounter for general adult medical examination without abnormal findings (principal); E55.9 Vitamin D deficiency, unspecified; R79.9 Abnormal finding of blood chemistry, unspecified; E53.8 Deficiency of other specified B group vitamins; R32 Unspecified urinary incontinence; R07.9 Chest pain, unspecified; E04.2 Nontoxic multinodular goiter; R91.8 Other nonspecific abnormal finding of lung field; G62.9 Polyneuropathy, unspecified; K29.20 Alcoholic gastritis without bleeding; R41.3 Other amnesia; I42.6 Alcoholic cardiomyopathy; F10.90 Alcohol use, unspecified, uncomplicated; F32.A Depression, unspecified; I10 Essential (primary) hypertension
CPT/HCPCS: 36415; 80048; 80061; 80076; 82043; 82306; 82570; 82607; 82728; 82746; 83036; 83540; 84439; 84443; 85025

== ENCOUNTER 2025-03-20 13:20 | Inpatient (IN) | payer MEDICARE, MEDICAID, SELFPAY ==
--- NOTE | ~2025-03-20 | US_ITS ---
EXAMINATION: US ABDOMEN LIMITED CLINICAL INFORMATION: Abnormal liver function tests. COMPARISON: CT January 05, 2024 TECHNIQUE: Real-time imaging of the right upper quadrant abdominal viscera. FINDINGS: LIVER: The liver is normal in size. The liver contour is normal. Parenchymal echogenicity is mildly increased. No focal hepatic lesion. There is no intrahepatic biliary duct dilatation seen. GALLBLADDER: Gallbladder contains echogenic foci with posterior acoustic shadowing. There is also increased echogenicity of the dependent bile. No focal tenderness per ultrasound report. COMMON BILE DUCT: Normal in caliber measuring 0.3 cm in diameter. US/US abdomen limited IMPRESSION: Cholelithiasis and gallbladder sludge. Fatty liver. Electronically signed by: Lopez Smiley MD 03/20/2025 05:38 PM EDT
--- NOTE | 2025-03-20 13:29 | ECG_ITS ---
Test Reason : WITHDRAWL Blood Pressure : */* mmHG Vent. Rate : 92 BPM Atrial Rate : 92 BPM P-R Int : 164 ms QRS Dur : 54 ms QT Int : 366 ms P-R-T Axes : 48 7 78 degrees QTcB Int : 452 ms Artifact in tracing Normal sinus rhythm Low voltage QRS Septal infarct , age undetermined Abnormal ECG When compared with ECG of 05-Jan-2024 05:41, No significant change was found Referred By: Gem Armijo Electronically Signed By: REMA CHIRINOS
[2025-03-20 13:35] VITALS: BP 142/68; BP 150/100; PULSE 129; PULSE 99; RESP 18; TEMP 36.7; O2SAT 96; O2SAT 98; BMI 22.6
--- NOTE | 2025-03-20 13:44 | ED_ITS ---
HPI - Alcohol General Chief Complaint: ETOH/Substance Use Stated Complaint: HEMATEMESIS Time Seen by Provider: 03/20/25 13:24 Source: patient, EMS and old records reviewed Mode of arrival: EMS Limitations: no limitations History of Present Illness ED Provider: VENICE MEDINA narrative: 64 yo female with PMH of CHF, esophagitis no hx of varices but no EGD since 2014, heavy daily ETOH use drinks white wine all day - she drank a bottle of wine today, UTI e. Coli bacteremia, she states she normally throws up every day but today threw up what she calls beet juice x 2. She denies black or bloody stools. She states she did panick after she saw the red. She notes she takes absolutely no medications including NSAIDs/aspirin and states she only drink cesar. She denies hx of ETOH withdrawal seizures, she denies recent trauma. MD complaint: alcohol intoxication (hematemesis) Last drink: Just prior to admission Chronic alcohol use: Yes Previous visits for alcohol intoxication: Yes Recent trauma: No Associated symptoms: nausea, vomiting and hematemesis Treatments prior to arrival: none Related Data Home Medications ?Medication ?Instructions ?Recorded ?Confirmed hydroxyzine pamoate 50 mg capsule 50 mg PO BID PRN anx iety 07/22/23 11/16/24 Previous Rx's ?Medication ?Instructions ?Recorded cephalexin 500 mg capsule 500 mg PO BID #14 caps 12/07 Allergies Allergy/AdvReac Type Severity Reaction Status Date / Time No Known Allergies (No Known Allergy Verified 03/20/25 13:37 Allergies*) Review of Systems 2 Review of Systems: Constitutional : No Weight loss, No Fever, No Chills ENT/Mouth : No sore throat, No Rhinorrhea Eyes: No Swelling, No Redness Cardiovascular : No Chest Pain, No SOB, NoEdema Respiratory : No Cough, No Sputum, No Wheezing Gastrointestinal : Positive Nausea, Positive Vomiting, no Diarrhea, no abdominal Pain, No Hematochezia, No Melena, pos hematemesis Genitourinary : No Dysuria, No Urinary Frequency, No Hematuria, No Urgency Musculoskeletal : No joint pain, No Myalgias, No Joint Swelling Skin : No Skin Lesions, No rash Neuro : No Weakness, No Numbness, No Dizziness, No Headache All other systems reviewed and are negative. [facility] Past Medical History Attestation statement: The following information was validated with the patient. Source: old records reviewed Medical History Alcohol use disorder Multinodular thyroid Anxiety CHF (congestive heart failure) ETOH abuse Surgical History History of esophagogastroduodenoscopy (EGD) Hx of colonoscopy Hx of hysterectomy Family History Family History Mother Cancer Father No problems noted. Social History Social History Household Members: Significant Other Household Members Other:: roommate Housing: Apartment Do you presently have visiting nurse or other home services: No Alcohol intake: current Alcohol intake frequency: 3 or more drinks per day Alcohol type: wine Patient Tobacco Use Status: Never used Tobacco Second Hand Smoke Exposure: Yes Substance Use Type: Crack/Cocaine Advance Directives: Yes Advance Directives on File: Yes Advance Directives Date on File: 07/22/23 Do you have a plan to hurt others: No Plan service: No Current occupational status: disabled Physical Exam ED Vital Signs: Vital Signs - 24 hr 03/20/25 13:35 Temperature 98.0 F Pulse Rate 99 Respiratory Rate 18 Blood Pressure 142/68 H Pulse Oximetry 96 Oxygen Delivery Method Room Air BMI result Body Mass Index 22.6 Appearance: Alert. Oriented X3. anxiey, mild tremors, mild acute distress. Eyes: Pupils equal, round and reactive to light. ENT: Pharynx normal. Neck: Normal inspection. Neck supple. CVS: tachycardic heart rate and rhythm. Pulses normal. Respiratory: No respiratory distress. Breath sounds normal. Abdomen: Soft and nontender. Skin: Skin warm and dry. Normal skin color. Normal skin turgor. Extremities: No lower extremity edema. No calf ttp Neuro: Oriented X 3. No motor deficit. No sensory deficit. CN2-12 intact Course Course Course Narrative: gap due to etoh Medical Decision Making Medical Decision Making MDM Narrative: 64 yo female with PMH of CHF, esophagitis no hx of varices but no EGD since 2014, heavy daily ETOH use now here with hematemesis at this time I have ordered fluids, protonix, magnesium, thiamine, valium and phenobarb will discuss case with GI and anticipate admission has not had an EGD since 2014. Differential Diagnosis Differential Diagnoses: The differential diagnosis associated with the presentation includes gastritis, varices, esophagitis, etoh use disorder Admission/Observation Consideration of admission/observation: Escalation of care including admission/observation considered admit for further monitoring and work up Consult Healthcare Provider Management of the patient was discussed with: Hospitalist (will admit) and Copy Center Operator (notified Dr. Ramos) Dr. Ramos wants US to evaluate for cirrhosis and repeat CBC at 5pm only add octreotide if she vomits blood again Lab Data MDM Lab Attestation statement: I reviewed the patient's lab results. 03/20/25 14:17 03/20/25 14:17 Labs: Lab Results 03/20/25 03/20/25 03/20/25 Range/Units 13:51 14:17 15:09 WBC 5.1 (4.8-10.8) X10*3/uL RBC 3.93 L (4.20-5.50) X10*6/uL Hgb 14.5 (12.0-16.0) g/dl Hct 42.1 (37.0-47.0) % MCV 107.1 H (80.0-98.0) fL MCH 36.9 H (27.0-33.0) pg MCHC 34.4 (31.0-35.0) g/dl RDW 13.6 (11.0-16.0) % Plt Count 119 L (160-400) X10*3/uL MPV 10.1 (9.4-12.3) fL Immature Gran % (Auto) 0.6 H (0.0-0.4) % Neut % (Auto) 63.3 (45-73) % Lymph % (Auto) 26.5 (20-40) % [place] % (Auto) 7.8 (2-11) % Eos % (Auto) 0.4 (0-4) % Baso % (Auto) 1.4 (0-2) % Lymph # (Auto) 1.4 (1.2-4.9) X10*3/uL [place] # (Auto) 0.4 (0.1-1.2) X10*3/uL Eos # (Auto) 0.0 (0.0-0.4) X10*3/uL Baso # (Auto) 0.1 (0.0-0.2) X10*3/uL Abs Immat Gran (auto) 0.03 (0.00-0.03) X10*3/uL Absolute Neuts (auto) 3.3 (2.0-8.3) x10*3/uL Absolute Nucleated RBC 0.020 H (0.0-0.012) X10*3/uL Nucleated RBC % (auto) 0.4 H (0.0-0.2) /100WBC PT 13.1 H (10.9-12.4) SEC INR 1.1 (0.9-1.1) Sodium 143 (135-145) mmol/L Potassium 4.9 (3.3-5.1) mmol/L Chloride 102 (96-108) mmol/L Carbon Dioxide 19 L (22-29) mmol/L Anion Gap 27 H (12-20) BUN 10 (9-16) mg/dL Creatinine 0.55 (0.5-1.4) mg/dL Estim Creat Clear Calc 95.5 Estimated GFR > 60 Random Glucose 94 (60-115) mg/dL Calcium 9.8 (8.4-10.2) mg/dL Magnesium 1.7 (1.6-2.6) mg/dL Total Bilirubin 4.4 H (0.0-1.0) mg/dL Direct Bilirubin 2.3 H (0.0-0.5) mg/dL AST 384 H (5-31) U/L ALT 106 H (0-31) U/L Alkaline Phosphatase 190 H (39-117) U/L Troponin I High Sens < 2.7 (<3.5-17.0) ng/L B-Natriuretic Peptide < 10 (<100) pg/mL Total Protein 8.9 H (6.5-8.0) g/dL Albumin 5.1 H (3.5-5.0) g/dL Lipase 31 (8-78) U/L Stool Occult Blood NEGATIVE (NEGATIVE) Urine Opiates Screen Not Detected (Not Detect) Ur Buprenorphine Scrn Not Detected (Not Detect) ng/mL Ur Oxycodone Screen Not Detected (Not Detect) ng/mL Urine Methadone Screen Not Detected (Not Detect) ng/mL Urine Fentanyl Screen Not Detected (Not Detect) Ur Barbiturates Screen Not Detected (Not Detect) Ur Phencyclidine Scrn Not Detected (Not Detect) Ur Amphetamines Screen Not Detected (Not Detect) U Benzodiazepines Scrn Not Detected (Not Detect) Urine Cocaine Screen Not Detected (Not Detect) U Marijuana (THC) Screen Not Detected (Not Detect) Ethyl Alcohol 152 mg/dL Independent Interpretation I performed an independent interpretation of an: EKG Interpretation: Rate: 92 Rhythm: NSR [place]: normal Normal P waves. Normal MED. Normal QRS complex. ST T wave : inverted t waves V1, V2 qTC: 452 prior studies: no acute ischemia The study has been interpreted contemporaneously by me. . Independent Historian Clinical information obtained from an independent historian. History obtained from or confirmed by: EMS External Record Review External record reviewed: Inpatient record and Outpatient record Medications Administered Discontinued Medications Generic Name Dose Route Start Last Admin Trade Name Freq PRN Reason Stop Dose Admin Diazepam 5 mg 03/20/25 13:36 03/20/25 14:31 Diazepam 10 Mg/2 Ml Cartridge IVPUSH 03/20/25 13:37 5 mg STAT STA Administration Lactated Ringer's 1,000 mls @ 999 mls/hr 03/20/25 13:28 03/20/25 14:21 Lr IV 03/20/25 14:28 999 mls/hr .Q1H1M ONE Administration Thiamine HCl 200 mg/ Sodium 102 mls @ 204 mls/hr 03/20/25 13:28 03/20/25 14:26 Chloride IV 03/20/25 13:57 204 mls/hr ONCE ONE Administration Magnesium Sulfate 2 gm in 50 mls @ 25 mls/hr 03/20/25 13:30 03/20/25 14:23 Magnesium Sulfate/H2o IV 03/20/25 15:29 25 mls/hr ONCE ONE Administration Pantoprazole Sodium 40 mg 03/20/25 13:28 03/20/25 14:22 Pantoprazole Sodium 40 Mg/10 Ml Vial IVPUSH 03/20/25 13:29 40 mg ONCE ONE Administration Phenobarbital Sodium 237 mg 03/20/25 14:00 03/20/25 14:31 Phenobarbital Sodium 130 Mg/Ml Im Once IM 03/20/25 14:01 237 mg ONCE ONE Administration Protocol Critical Care Time Critical Care Time Critical Care Time: Yes Total Critical Care Time: 35 Attestation: Time is exclusive of separately billable procedures. Time includes: direct patient care, patient reassessment, coordination of patient care, interpretation of data (laboratory data, pulse oximetry), review of patient's medical records, medical consultation and documentation of patient care. IV magnesium and phenobarb protocol for ETOH withdrawal protocol. Procedures excluded from critical care time: electrocardiography. Discharge Plan Discharge Clinical Impression: Alcohol use disorder Hematemesis Qualifiers: Nausea presence: with nausea Qualified Code(s): K92.0 - Hematemesis Patient Disposition: Admitted As Inpatient Print Language: Tajik
[2025-03-20 14:16] LABS: INTERNATIONAL NORM RATIO 1.1 (0.9-1.1); Prothrombin Time 13.1 SEC (10.9-12.4)
[2025-03-20] MEDS: Lactated Ringers 1,000 ML 999 ML IV (14:21)
[2025-03-20] MEDS: Magnesium Sulfate/H2O 2 GM/50 ML PIGGYBACK IV (14:23)
[2025-03-20 14:24] LABS: MANUAL DIFF FLAG NO
[2025-03-20 14:25] LABS: Hematocrit 42.1 % (37.0-47.0); Hemoglobin 14.5 g/dl (12.0-16.0); Imm Gran Abs Auto 0.03 X10*3/uL (0.00-0.03); Imm Gran Pct Auto 0.6 % (0.0-0.4); Lymphocytes Absolute Auto 1.4 X10*3/uL (1.2-4.9); Mean Corpuscular HGB Conc 34.4 g/dl (31.0-35.0); Mean Corpuscular Hemoglobin 36.9 pg (27.0-33.0); Mean Corpuscular Volume 107.1 fL (80.0-98.0); NRBC Abs Auto 0.020 X10*3/uL (0.0-0.012); NRBC Pct Auto 0.4 /100WBC (0.0-0.2); Platelet Count 119 X10*3/uL (160-400); Red Blood Count 3.93 X10*6/uL (4.20-5.50); White Blood Count 5.1 X10*3/uL (4.8-10.8)
[2025-03-20] MEDS: Thiamine HCL 200 MG in 0.9 % Sodium Chloride 100 ML 204 MG IV (14:26)
[2025-03-20] MEDS: diazePAM 10 MG/2 ML CARTRIDGE 5 MG IVPUSH (14:31)
[2025-03-20] MEDS: PHENobarbitaL sodium 130 MG/ML IM ONCE 237 MG IM (14:31)
[2025-03-20 14:49] LABS: Alanine Aminotransferase 106 U/L (0-31); Albumin Level 5.1 g/dL (3.5-5.0); Alkaline Phosphatase 190 U/L (39-117); Anion Gap 27 (12-20); Aspartate Amino Transferase 384 U/L (5-31); Blood Urea Nitrogen 10 mg/dL (9-16); Calcium 9.8 mg/dL (8.4-10.2); Carbon Dioxide 19 mmol/L (22-29); Chloride 102 mmol/L (96-108); Creatinine Clr Calc Pharmacy 95.5; Estimated Glomerular Filt Rate > 60; Lipase 31 U/L (8-78); Magnesium 1.7 mg/dL (1.6-2.6); Potassium 4.9 mmol/L (3.3-5.1); Sodium 143 mmol/L (135-145); Total Protein 8.9 g/dL (6.5-8.0)
[2025-03-20 14:50] LABS: B Type Natriuretic Peptide < 10 pg/mL (<100)
[2025-03-20 14:57] LABS: Troponin-I High Sensitivity < 2.7 ng/L (<3.5-17.0)
[2025-03-20 15:18] LABS: OBS Int Ctl Valid YES; OBS1 NEGATIVE (NEGATIVE)
[2025-03-20 15:25] LABS: Cannabinoid Screen Urine Not Detected (Not Detect)
--- OUTSIDE RECORDS SUMMARY | 2025-03-20 15:28 | XMS_ITS | Data Portability ---
Author Organization [facility], [facility] Medical [facility] Address [address] [place] [id number] Care Team Providers Care Print Washer Name Role Phone [facility] Referring Provider HIM CCA OTHER Assessment No assessment recorded. Plan of Treatment Reminders Order Date Submit Date Provider Last Modified By Organization Details Last Modified Time Details Appointments None recorded. Lab BMP, serum or plasma [address], [phone] 09:43:40 Referral None recorded. Procedures None recorded. Surgeries None recorded. Imaging electrocard iogram 2022 023 [facility], [address] [place] [address], [phone] 3 05:00:47 Medication Orders None recorded. Patient TargetsNo targets recorded. Patient InstructionsNo instructions recorded. Reason for Referral None Reported. Results Created Date Observation Date Name Description Value Unit Range Abnormal Flag Note LastModifiedBy Organization Detail LastModifiedTime 03/02/20 23 03/03/2023 elect valentino leivagr am No observ ation record ed. [email or web address] [address], [phone] 03/03/2023 09:41:28 Result Notes None recorded. Medical Equipment None Reported. [...] Available No t Available Vitals Date Recorded Body temperature Respiratory rate Oxygen saturation Oxygen saturation in Arterial blood by Pulse oximetry Heart rate Systolic And Diastolic Provider Name and Address Organization Details Last Updated DateTime 4 98.1 [degF] 16 /min 100 % 100 % 90 /min 147/85 mm[Hg] Not Available [facility] 4 16:43:22 Date Recorded Oxygen saturation Oxygen saturation in Arterial blood by Pulse oximetry Heart rate Respiratory rate Body temperature Systolic And Diastolic Provider Name and Address Organization Details Last Updated DateTime 3 96 % 96 % 103 /min 20 /min 97.8 [degF] 140/100 mm[Hg] Not Available [facility] 3 20:33:31 Social History None recorded. Functional Status None recorded. Mental Status None recorded. Family History Nothing Reported. Medical History No medical history recorded. Gynecological HistoryNo gynecological history recorded. Obstetrics History GPAL:G 0 P 0 0 0 0 Past Encounters Encounter ID Performer Location Encounter Start Date Encounter Closed Date Diagnosis/Indication Diagnosis SNOMED-CT Code Diagnosis ICD10 Code Diagnosis Note [id number] [facility]ises [facility]ain[facility] [address] [place] [phone] 03/02/2023 18:12:52 03/02/2023 22:31:16 Alcohol intoxication 44500062 F10.929 Patient does not wish to go to ED for evaluation at this time. Unable to get IV placed for fluids, but BMP is stable. 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 Encouraged to seek alcohol detox treatment at ED. Patient precontemp lative. Discussed hydration in setting of alcohol use. Mild dehydration 6198713 119 108 E86.0 Normotensi ve to hypertensi ve. Unable to get IV placed [place] fluids[place] [id number] Michi Ratliff MD Main - [facility] [address] [place] [phone] 11/28/2023 16:43:20 11/28/2023 19:18:58 Alcohol intoxication [id number] F10.929 This 63-year-ol d female called [facility] requesting antibiotic s for a dental infection. [...] Recorded Advance Directives Directive None Recorded Payers Insurance Date Sequence Insurance Name Policy Number Policy Lyn Covered Member ID Lyn Member ID Guarantor Name 03/03/2024 1 [facility] - DOS ON OR AFTER 2022 - DUAL ELIGIBLE - FPC OPTIONS AND ONE CARE (MEDICARE REPLACEMENT/ADV ANTAGE - HMO) Nubia Bell [id number] Nubia Bell Notes Date Note Type Note [...] .................... .................... .................... .................... .................... .................... . Assembler Fitter Note From Cary Ashby: Community Assembler Fitter Michelle Ashby CCA1 dispatched to a [facility] for a 62 yof C/O dehydration. Pt reported to [facility] that she had been drinking wine. [...] was receiving care from a psych provider. [facility] consulted; 4X IV attempt w/ no success, BMP [facility] E[facility]. EKG and BMP results were discussed w/ [...] . Disposition: Fulfilled Moises Vizcaino MD [address] [facility],[address], [place], [phone], [employer] [facility] 03/02/2023 21:04:12 11/28/2023 text/html CRC Nurse Triage [...] pretty active. PCP appointment for 12/06 Zara LENZ Verified name//address Michi Ratliff MD [address] [facility], [place], [phone], [facility] 11/28/2023 16:49:27 OBGyn Episode No OBEpisode recorded.
--- OUTSIDE RECORDS SUMMARY | 2025-03-20 15:28 | XMS_ITS | Encounter Summary ---
Author Organization [employer] Address [address] [facility] [address] [place] [address] Care Team Providers Care Road Gang Supervisor Name Role Phone Ella Haddadnifer Primary Care Provider [phone] Encounter Details Date Type Department Care Team (Late st Contact Info) Description 12/12/2023 Orders Only [facility] [address] [place], [place] [phone] ProviderKumar MD Social History Tobacco Use Types Packs/Day Years Used Date Smoking Tobacco: Never Smokeless Tobacco: Never Alcohol Use Standard Drinks/Week Comments Not Currently 0 (1 standard drink = 0.6 oz pure alcohol) 1 1/2 bottles of wine per day Depression Answer Date Recorded Patient Health Questionnaire-9 Score 6 02/07/2023 Housing Stability Answer Date Recorded What is your housing situation today? I have [place] 11/27/[address] you li ve. Do you have problems with any of the following? None of the above 11/27/2023 Food Insecurity Answer Date Recorded Within the past 12 months, y ou worried that your food would run out before you got money to buy more: Never True 11/27/2023 Within the past 12 months,th e food you bought just didn't last and you didn't have enough money to get more: Never True Transportation Answer Date Recorded In the past 12 months, has l ack of transportation kept you from medical appts, meetings, work or from getting things needed for daily living? No 11/27/2023 Utilities Answer Date Recorded In the past 12 months, has t he electric, gas, oil or water company threatened to shut off services in your home? No 11/27/2023 Depression Answer Date Recorded Patient Health Questionnaire-2 Score 3 02/07/2023 Comments Unknown Sex and Gender Information Value Date Recorded Sex Assigned at Female 07/04/2022 10:17 AM EDT Legal Sex Female 10:17 AM EDT Gender Identity Female 07/04/2022 10:17 AM EDT Sexual Orientation Straight 07/04/2022 10 :17 AM EDT documented as of this encounter Plan of Treatment Not on file documented as of this encounter Procedures Procedure Name Priority Date/Time Associated Diagnosis Comments HM COLONOSCOPY Routine 10/10/2013 11:05 AM EST documented in this encounter Results * Hm Colonoscopy (10/10/2013 11:05 AM EST) us Historical Provider HEALTH MAINTENANCE Final Result documented in this encounter Visit Diagnoses Not on filedocumented in this encounter Additional Health Concerns Assessment Noted Time PHQ-9 Depression Total Score: 6 02/08/20 23 9:59 AM EDT documented as of this encounter Care Teams Road Gang Supervisor Relationship Specialty Start Date End Date Le Haddad DO [address] [place] [id number] PCP - General Family Medicine 05/18/15 documented as of this encounter
--- OUTSIDE RECORDS SUMMARY | 2025-03-20 15:28 | XMS_ITS | Clinical Summary ---
Author Organization [facility] Facility Address [address] [address] Care Team Providers Care Slab Depiler Operator Name Role Phone Le Haddad DO Primary [...] Pneumococcal Vaccine: 50+ Ye ars (1 of 1 - PCV) 2009 Influenza Vaccine (#1) 2025 Hepatitis B Vaccine Aged Out No longe r eligible based on patient's age to complete this topic Care Teams Slab Depiler Operator Relationship Specialty Start Date End Date Le Haddad DO PCP - General 09/14/20
--- NOTE | 2025-03-20 16:28 | PM.IMHP ---
History of Present Illness Date of Service: 03/20/25 Chief Complaint: haematemesis 64yo F with AUD who drinks 1 bottle of white wine daily but denies history of withdrawal [though EHR indicates otherwise], HFpEF, GERD, HTN, and neuropathy presenting after throwing up bloody material twice daily at home and once in the ED. No haematochezia nor melena. No abdominal pain. No known cirrhosis and last EGD in 2014 showed esophagitis but no varices. Denies any NSAID or steroid use. Last drink just prior to admission. Initially says she is not on any home medication, but then says she takes gabapentin as needed for neuropathy. No chest pain, dyspnea, lightheadedness, or dizziness. In ED, Hb 14.1, INR 1.1, EtOH 152, Tbili 4.4, AST 384, ALT 106. Guaiac negative. She was started on phenobarbital and given IV pantoprazole, magnesium, and thiamine. Review of Systems Review of Systems: Yes all other systems are reviewed and are negative [facility] Medical History Alcohol use disorder Multinodular thyroid Anxiety CHF (congestive heart failure) ETOH abuse Family History Mother Cancer Father No problems noted. Surgical History History of esophagogastroduodenoscopy (EGD) Hx of colonoscopy Hx of hysterectomy Social History Household Members: Significant Other Household Members Other:: roommate Housing: Apartment Do you presently have visiting nurse or other home services: No Alcohol intake: current Alcohol intake frequency: 3 or more drinks per day Alcohol type: wine Patient Tobacco Use Status: Never used Tobacco Second Hand Smoke Exposure: Yes Substance Use Type: Crack/Cocaine Advance Directives: Yes Advance Directives on File: Yes Advance Directives Date on File: 07/22/23 Do you have a plan to hurt others: No Plan service: No Current occupational status: disabled Meds Allergies Allergy/AdvReac Type Severity Reaction Status Date / Time No Known Allergies (No Known Allergy Verified 03/20/25 13:37 Allergies*) Active Medications: Current Medications Thiamine HCl 100 mg/ Sodium (Chloride) 101 mls @ 202 mls/hr IV DAILY A[facility] Pantoprazole Sodium (Pantoprazole Sodium 40 Mg/10 Ml Vial) 40 mg IVPUSH BID@0630,1630 [facility] Pharmacy Consult (Consult Rx Etoh Phenob Im/Po) 1 each MISCELLANE ONCE PRN; Protocol PRN Reason: Consult order Phenobarbital (Phenobarbital 30 Mg Tablet) 30 mg PO BID [facility]; Protocol Stop: 03/22/25 21:01 Phenobarbital (Phenobarbital 15 Mg Tablet) 15 mg PO BID ADEL[facility]; Protocol Stop: 03/24/25 21:01 Phenobarbital (Phenobarbital 15 Mg Tablet) 15 mg PO DAILY [facility]; Protocol Stop: 03/26/25 09:01 Phenobarbital Sodium (Phenobarbital Sodium 130 Mg/Ml Vial Im Q3hx2) 178 mg IM Q3H AEDLIA; Protocol Stop: 03/20/25 20:01 Home Medications ?Medication ?Instructions ?Recorded ?Confirmed ?Last Taken ?Type hydroxyzine pamoate 50 mg capsule 50 mg PO BID PRN anxiety 07/22/23 11/16/24 Unknown History Physical Exam Vital Signs and Narrative: Vital Signs: Last Vital Signs Temp 98.0 F 03/20/25 13:35 Pulse 99 03/20/25 13:35 Resp 18 03/20/25 13:35 BP 142/68 H 03/20/25 13:35 Pulse Ox 96 03/20/25 13:35 O2 Del Method Room Air 03/20/25 13:35 BMI result Body Mass Index 22.6 Gen: in no acute distress HEENT: sclera icteric, moist mucus membranes Neck: supple Lungs: clear to auscultation bilaterally Heart: regular rate and rhythm, no murmurs Abd: soft, non-tender, non-distended Ext: no edema Skin: warm/well-perfused, facial plethora Neuro: alert and oriented x3, no focal findings, no asterixis Psych: appropriate affect Results Labs 03/20/25 14:17 03/20/25 14:17 Labs: Laboratory Results - last 24 hr 03/20/25 03/20/25 03/20/25 13:51 14:17 15:09 MCV 107.1 H MCH 36.9 H MCHC 34.4 RDW 13.6 Plt Count 119 L MPV 10.1 Immature Gran % (Auto) 0.6 H Neut % (Auto) 63.3 Lymph % (Auto) 26.5 Benton % (Auto) 7.8 Eos % (Auto) 0.4 Baso % (Auto) 1.4 Lymph # (Auto) 1.4 Benton # (Auto) 0.4 Eos # (Auto) 0.0 Baso # (Auto) 0.1 Abs Immat Gran (auto) 0.03 Absolute Neuts (auto) 3.3 Absolute Nucleated RBC 0.020 H Nucleated RBC % (auto) 0.4 H PT 13.1 H INR 1.1 Anion Gap 27 H Estim Creat Clear Calc 95.5 Estimated GFR > 60 Random Glucose 94 Calcium 9.8 Magnesium 1.7 Total Bilirubin 4.4 H Direct Bilirubin 2.3 H AST 384 H ALT 106 H Alkaline Phosphatase 190 H B-Natriuretic Peptide < 10 Total Protein 8.9 H Albumin 5.1 H Lipase 31 Stool Occult Blood NEGATIVE Urine Opiates Screen Not Detected Ur Buprenorphine Scrn Not Detected Ur Oxycodone Screen Not Detected Urine Methadone Screen Not Detected Urine Fentanyl Screen Not Detected Ur Barbiturates Screen Not Detected Ur Phencyclidine Scrn Not Detected Ur Amphetamines Screen Not Detected U Benzodiazepines Scrn Not Detected Urine Cocaine Screen Not Detected U Marijuana (THC) Screen Not Detected Ethyl Alcohol 152 Assessment and Plan (1) Hematemesis: Qualifiers: Nausea presence: with nausea Qualified Code(s): K92.0 - Hematemesis Status: Acute Plan 64yo with AUD, HFpEF, GERD, HTN, and neuropathy presenting with haematemesis. UGIB - admit to telemetry, give IV PPI, consult GI and plan EGD tomorrow unless repeat Hb at 1700 drops precipitously or she becomes haemodynamically unstable, keep NPO, no octreotide unless she has another episode or liver US [ordered] shows cirrhosis EtOH hepatitis - MDF 10, no steroids indicated AUD - Addiction Medicine consult - phenobarbital taper to prevent withdrawal; continue multivitamin VTE ppx - SCDs dispo - TBD code status - full I anticipate that the patient will stay at least 2 midnights as an inpatient in the hospital due to the above reasons. It is neither reasonable nor safe to care for them in a less acute setting. Quality Stroke Does the patient have a stroke diagnosis?: No VTE Prior VTE?: No VTE Risk Level:: Medical - moderate - high VTE Device Contraindication: N/A - Device Ordered VTE Drug Contraindication: Treatment Not Indicated
[2025-03-20 17:27] VITALS: BP 132/74; PULSE 90; RESP 12; TEMP 36.9; O2SAT 100
[2025-03-20 17:34] LABS: Hematocrit 35.9 % (37.0-47.0); Hemoglobin 12.9 g/dl (12.0-16.0); Mean Corpuscular HGB Conc 35.9 g/dl (31.0-35.0); Mean Corpuscular Hemoglobin 37.7 pg (27.0-33.0); Mean Corpuscular Volume 105.0 fL (80.0-98.0); NRBC Abs Auto 0.000 X10*3/uL (0.0-0.012); NRBC Pct Auto 0.0 /100WBC (0.0-0.2); Red Blood Count 3.42 X10*6/uL (4.20-5.50); White Blood Count 3.9 X10*3/uL (4.8-10.8)
[2025-03-20 17:40] LABS: Platelet Count 85 X10*3/uL (160-400)
--- NOTE | 2025-03-20 17:57 | PHA.MEDREC ---
Addendum entered by Param Sloan RPh 03/20/25 18:12: Reviewed by [facility]. Original Note: Pharmacy Consult ? Medication Reconciliation Pharmacy has completed the medication reconciliation. Spoke to patient to confirm med list. Patient confirmed she only takes Carvedilol 3.125 mg, Lansoprazole 30 mg and Gabapentin 300 mg PRN (only when needed). Patient confessed that she is not always compliant with her medications. Patient states she takes her medications only when she feels like it.
[2025-03-20] MEDS: PHENobarbitaL sodium 130 MG/ML VIAL IM Q3Hx2 178 MG IM ×2 (18:29→20:24)
--- NOTE | 2025-03-20 18:40 | P.CNGI_ITS ---
History of Present Illness Data of Consult Service Date: 03/20/25 Requesting physician: Ian Soni Primary Care Provider: Unknown Physician HPI Reason for consult: UGI bleeding 64 YF with known hx of ETOH abus (drinks 1 bottle of white wine daily), HFpEF, GERD, HTN, and neuropathy seen at [facility] ED on 03/20/25 after having two episodes of throwing up bloody material at home. Pt had a 3rd episode after arrival in the ED. She estimates she vomited a little more than a cupful of blood - looked like beet juice. Pt reports she wakes up at 6 am, has a coughing spell and has repeated episodes of vomiting clear mucous every morning which lasts for about an hour. Then she starts drinking a bottle of wine which she finishes by 8 pm at night. She does not eat during the day and has her 1st meal after 20:00. Pt denies heartburn, dysphagia, chest or abdominal pain, dyspnea, lightheadedness, dizziness or recent change in bowel habits. She reports having a BM every other day - notes her stools have been a little darker/?black for the last few days. Pt admits to drinking ETOH since her teenage years and denies smoking. She reports going through detox and rehab program followed by relapse. No known cirrhosis and last EGD in 2014 showed esophagitis but no varices. Pt has a past hx of UT and has a hx of chronic chest pain for the past year of unclear etiology. She denies a history of loud snoring or sleep apnea. Pt denies any NSAID or steroid use. Last drink just prior to admission. Pt admits to taking gabapentin as needed for neuropathy. 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 She lives with her ex-boyfriend, his son and another room mate. FAMILY HISTORY: Positive for alcoholism in her mom and sister. She denies known history of liver disease in her family, known history of colon polyps or GI malignancy. Labs in the ED showed Hb 14.1, INR 1.1, EtOH 152, Tbili 4.4, AST 384, ALT 106. Guaiac negative. Pt was started on phenobarbital and given IV pantoprazole, magnesium, and thiamine. Review of Systems 2 Review of Systems: Yes all other systems are reviewed and are negative [facility] Past Medical History Medical History Myocardial infarct Alcohol use disorder Multinodular thyroid Anxiety CHF (congestive heart failure) ETOH abuse Family History Family History Mother Cancer Father No problems noted. Surgical History Surgical History History of esophagogastroduodenoscopy (EGD) Hx of colonoscopy Hx of hysterectomy Social History Social History Household Members: Friend(s) Household Members Other:: roommate Housing: House Do you presently have visiting nurse or other home services: No Alcohol intake: current Alcohol intake frequency: 3 or more drinks per day Alcohol type: wine Patient Tobacco Use Status: Never used Tobacco Second Hand Smoke Exposure: Yes Substance Use Type: Crack/Cocaine Advance Directives Date on File: 07/22/23 service: No Current occupational status: disabled Meds Allergies Allergy/AdvReac Type Severity Reaction Status Date / Time No Known Allergies (No Known Allergy Verified 03/20/25 13:37 Allergies*) Active Medications: Current Medications Acetaminophen (Acetaminophen 325 Mg Tablet) 650 mg PO Q6H PRN PRN Reason: Pain, Mild 1-3,fever,headache Calcium Carbonate (Calcium Carbonate 750 Mg Tab.Chew) 750 mg PO Q4H PRN PRN Reason: Heartburn Carvedilol (Carvedilol 3.125 Mg Tablet) 3.125 mg PO BID [facility]; Protocol Gabapentin (Gabapentin 300 Mg Capsule) 300 mg PO TID PRN PRN Reason: neuropathy Thiamine HCl 100 mg/ Sodium (Chloride) 101 mls @ 202 mls/hr IV DAILY [facility] Magnesium Hydroxide (Milk Of Magnesia 30 Ml Oral.Susp) 30 ml PO DAILY PRN PRN Reason: Constipation Melatonin (Melatonin 3 Mg Tablet) 6 mg PO BEDTIME PRN PRN Reason: Insomnia Ondansetron HCl (Ondansetron Hcl 4 Mg/2 Ml Vial) 4 mg IVPUSH Q4H PRN PRN Reason: Nausea and Vomiting Pantoprazole Sodium (Pantoprazole Sodium 40 Mg/10 Ml Vial) 40 mg IVPUSH BID@0630,1630 [facility] Pharmacy Consult (Consult Rx Etoh Phenob Im/Po) 1 each MISCELLANE ONCE PRN; Protocol PRN Reason: Consult order Phenobarbital (Phenobarbital 30 Mg Tablet) 30 mg PO BID [facility]; Protocol Stop: 03/22/25 21:01 Phenobarbital (Phenobarbital 15 Mg Tablet) 15 mg PO BID [facility]; Protocol Stop: 03/24/25 21:01 Phenobarbital (Phenobarbital 15 Mg Tablet) 15 mg PO DAILY [facility]; Protocol Stop: 03/26/25 09:01 Phenobarbital Sodium (Phenobarbital Sodium 130 Mg/Ml Vial Im Q3hx2) 178 mg IM Q3H [facility]DEL[facility]; Protocol Stop: 03/20/25 20:01 Last Admin: 03/20/25 18:29 Dose: 178 mg Sodium Chloride (0.9 % Sodium Chloride Flush 3 Ml Syringe) 3 ml IVFLUSH QSHIFT [facility] Home Medications ?Medication ?Instructions ?Recorded ?Confirmed ?Last Taken ?Type carvedilol 3.125 mg tablet 3.125 mg PO BID 03/20/25 Unknown History gabapentin 300 mg capsule 300 mg PO TID PRN Pain 03/2003/20/25 Unknown History lansoprazole 30 mg capsule,delayed 30 mg PO DAILY@0630 03/20/25 03/20/25 Unknown History release Physical Exam 2 Vital Signs: Vital Signs: Last Vital Signs Temp 98.4 F 03/20/25 17:27 Pulse 90 03/20/25 17:27 Resp 12 03/20/25 17:27 BP 132/74 03/20/25 17:27 Pulse Ox 100 03/20/25 17:27 O2 Del Method Room Air 03/20/25 17:27 BMI result Body Mass Index 22.6 Const: General: no acute distress Nutritional Appearance: average body habitus Orientation/consciousness: patient oriented x3 Limitations: no limitations HEENT: Head: Yes normal to inspection Ears: hearing grossly normal bilaterally Eyes: Sclerae: sclerae normal Pupils: Equal, round and reactive pupils present Neck: Neck: Yes normal visual inspection Chest: Chest palpation & inspection: normal inspection of the chest Resp: Effort & Inspection: normal respiratory effort Auscultation: clear to auscultation bilaterally Cardio: Palpation: normal PMI Rate: regular rate Rhythm: regular rhythm Heart sounds: S1 normal heart sound present, S2 normal heart sound present and no murmurs GI: Palpation (GI): Soft to palpation, nontender and No hepatosplenomegaly present Auscultation: normal bowel sounds Rectal Exam - Female: deferred Skin: General skin exam: no rashes or lesions noted and spider nevi (over anterior chest) Neuro: General: patient oriented x3, gait normal and moves all extremities Cranial nerves: Yes Equal, round and reactive pupils present Psych: Appearance: grossly normal Mental Status: mental status grossly normal Results Labs 03/21/25 07:24 03/21/25 07:24 Labs: Short CBC 03/20/25 03/20/25 Range/Units 14:17 17:20 WBC 5.1 3.9 L (4.8-10.8) X10*3/uL Hgb 14.5 12.9 (12.0-16.0) g/dl Hct 42.1 35.9 L (37.0-47.0) % Plt Count 119 L 85 L D (160-400) X10*3/uL BMP 03/20/25 14:17 Sodium 143 Potassium 4.9 Chloride 102 Carbon Dioxide 19 L BUN 10 Creatinine 0.55 Calcium 9.8 Liver Function 03/20/25 Range/Units 14:17 Total Bilirubin 4.4 H (0.0-1.0) mg/dL Direct Bilirubin 2.3 H (0.0-0.5) mg/dL AST 384 H (5-31) U/L ALT 106 H (0-31) U/L Alkaline Phosphatase 190 H (39-117) U/L Albumin 5.1 H (3.5-5.0) g/dL Assessment and Plan (1) Hematemesis: Qualifiers: Nausea presence: with nausea Qualified Code(s): K92.0 - Hematemesis Status: Acute (2) Alcoholic steatohepatitis: Status: Acute Plan 64 YF with known hx of ETOH abus (drinks 1 bottle of white wine daily), HFpEF, GERD, HTN, and neuropathy admitted to [facility] on 03/20/25 after having two episodes of throwing up bloody material at home. Pt had a 3rd episode after arrival in the ED. She estimates she vomited a little more than a cupful of blood - looked like beet juice. Pt has a past hx of UT and has a hx of chronic chest pain for the past year of unclear etiology. She denies a history of loud snoring or sleep apnea. Labs in the ED showed Hb 14.1, INR 1.1, EtOH 152, Tbili 4.4, AST 384, ALT 106. Guaiac negative. Pt was started on phenobarbital and given IV pantoprazole, magnesium, and thiamine. ABD US SHOWED: LIVER: The liver is normal in size. The liver contour is normal. Parenchymal echogenicity is mildly increased. No focal hepatic lesion. There is no intrahepatic biliary duct dilatation seen. Cholelithiasis and gallbladder sludge. RECOMMENDATIONS: 1. Agree with IV PPI, antiemetics and CIWA protocol 2. Monitor CBC q 8 hrly x next 24 hrs and transfuse prn 3. Further evaluation with EGD - scheduled on 03/21/25. EGD procedure and potential complications were reviewed with the patient. 4. ETOH rehab once pt is stable from bleeding standpoint Procedures Date of Service Date of Service: 03/21/25
[2025-03-20 19:18] VITALS: BP 138/76; PULSE 81; RESP 15; TEMP 36.8; O2SAT 98
--- NOTE | 2025-03-20 20:29 | PC.NURSE ---
pt medicated per MAR.
[2025-03-20 20:46] VITALS: BMI 21.5
[2025-03-20 20:57] VITALS: BP 168/82; PULSE 95; RESP 18; TEMP 36.7; O2SAT 100
[2025-03-20 23:59] VITALS: BP 143/78; PULSE 68; RESP 17; TEMP 36.4; O2SAT 99
[2025-03-21] VITALS (10 sets, daily range): BP systolic 95–137; BP diastolic 47–75; PULSE 68–76; RESP 14–20; TEMP 35.8–36.9; O2SAT 96–100
[2025-03-21] MEDS: 0.9 % Sodium Chloride Flush 3 ML SYRINGE IVFLUSH ×4 (00:21→20:29)
[2025-03-21 07:43] LABS: Hematocrit 35.8 % (37.0-47.0); Hemoglobin 12.6 g/dl (12.0-16.0); Mean Corpuscular HGB Conc 35.2 g/dl (31.0-35.0); Mean Corpuscular Hemoglobin 37.6 pg (27.0-33.0); Mean Corpuscular Volume 106.9 fL (80.0-98.0); NRBC Abs Auto 0.000 X10*3/uL (0.0-0.012); NRBC Pct Auto 0.0 /100WBC (0.0-0.2); Red Blood Count 3.35 X10*6/uL (4.20-5.50); White Blood Count 2.9 X10*3/uL (4.8-10.8)
[2025-03-21 07:46] LABS: Platelet Count 84 X10*3/uL (160-400)
[2025-03-21 07:49] LABS: INTERNATIONAL NORM RATIO 1.2 (0.9-1.1); Prothrombin Time 13.4 SEC (10.9-12.4)
[2025-03-21 08:05] LABS: Alanine Aminotransferase 72 U/L (0-31); Albumin Level 4.2 g/dL (3.5-5.0); Alkaline Phosphatase 137 U/L (39-117); Anion Gap 23 (12-20); Aspartate Amino Transferase 204 U/L (5-31); Blood Urea Nitrogen 10 mg/dL (9-16); Calcium 8.9 mg/dL (8.4-10.2); Carbon Dioxide 17 mmol/L (22-29); Chloride 105 mmol/L (96-108); Creatinine Clr Calc Pharmacy 90.5; Estimated Glomerular Filt Rate > 60; Magnesium 2.0 mg/dL (1.6-2.6); Potassium 4.2 mmol/L (3.3-5.1); Sodium 141 mmol/L (135-145); Total Protein 7.0 g/dL (6.5-8.0)
[2025-03-21] MEDS: Thiamine HCL 100 MG in 0.9 % Sodium Chloride 100 ML 202 MG IV (08:08)
[2025-03-21 08:22] LABS: HBS Num1 0.00 mIU/mL (0-7.99); HBc Num1 0.07 S/CO (0.00-0.79); HBsAGNum1 0.31 S/CO (0.00-0.99); Hepatitis B Surface Antigen Negative (Negative); ~HepC Num1 0.11 S/CO (0.00-0.79); ~Hepatitis B Surface Antibody NONREACTIVE (Nonreactive); ~Hepatitis C Antibody Nonreactive (Nonreactive)
[2025-03-21 08:35] LABS: Folate 3.7 ng/mL (> or = 4.0); Vitamin B12 468 pg/mL (200-900)
--- NOTE | 2025-03-21 08:47 | HO.ANESPROP2 ---
Documented by User: Teagan العراقي NP 03/21/25 09:28 HPI - Anesthesia Eval Consult details Narrative: 64 yr old female for upper endoscopy. Acute ETOH intoxication: AST 384, ALT 106 Hematemesis: normal H/H, platelets 84 No recent illness; No SOB/CP, activity extremely limited, mostly sedentary, +chronic epigastric pain H/O CHF: BNP normal, Echo 2022 [facility] Active Problems Active Problems: All Active Problems Hematemesis (Acute) Alcohol use disorder (Acute) Alcohol use disorder (Acute) E coli bacteremia (Acute) Pyelonephritis (Acute) Physical deconditioning (Acute) Fracture of rib (Acute) Fall (Acute) UTI (urinary tract infection) (Acute) Alcohol use disorder, moderate, dependence (Acute) Alcoholic steatohepatitis (Acute) Grief counseling (Acute) History of cardiomyopathy (Acute) Lumbar radiculopathy (Acute) Esophagitis (Acute) Multinodular thyroid (Acute) Past Medical History Medical History Myocardial infarct Alcohol use disorder Multinodular thyroid Anxiety CHF (congestive heart failure) ETOH abuse Functional capacity: independent ambulation Family History Family History Mother Cancer Father No problems noted. Family history of problems with anesthesia: No Surgical History Surgical History History of esophagogastroduodenoscopy (EGD) Hx of colonoscopy Hx of hysterectomy History of Problems with Anesthesia: No Social History Social History Household Members: Friend(s) Household Members Other:: roommate Housing: House Do you presently have visiting nurse or other home services: No Alcohol intake: current Alcohol intake frequency: 3 or more drinks per day Alcohol type: wine Patient Tobacco Use Status: Never used Tobacco Second Hand Smoke Exposure: Yes Substance Use Type: Crack/Cocaine Advance Directives Date on File: 07/22/23 service: No Current occupational status: disabled Meds Allergies Allergy/AdvReac Type Severity Reaction Status Date / Time No Known Allergies (No Known Allergy Verified 03/20/25 13:37 Allergies*) Active Medications: Current Medications Acetaminophen (Acetaminophen 325 Mg Tablet) 650 mg PO Q6H PRN PRN Reason: Pain, Mild 1-3,fever,headache Calcium Carbonate (Calcium Carbonate 750 Mg Tab.Chew) 750 mg PO Q4H PRN PRN Reason: Heartburn Carvedilol (Carvedilol 3.125 Mg Tablet) 3.125 mg PO BID [facility]; Protocol Last Admin: 03/21/25 08:08 Dose: 3.125 mg Gabapentin (Gabapentin 300 Mg Capsule) 300 mg PO TID PRN PRN Reason: neuropathy Thiamine HCl 100 mg/ Sodium (Chloride) 101 mls @ 202 mls/hr IV DAILY [facility] Last Infusion: 03/21/25 08:39 Dose: Infused Magnesium Hydroxide (Milk Of Magnesia 30 Ml Oral.Susp) 30 ml PO DAILY PRN PRN Reason: Constipation Melatonin (Melatonin 3 Mg Tablet) 6 mg PO BEDTIME PRN PRN Reason: Insomnia Ondansetron HCl (Ondansetron Hcl 4 Mg/2 Ml Vial) 4 mg IVPUSH Q4H PRN PRN Reason: Nausea and Vomiting Pantoprazole Sodium (Pantoprazole Sodium 40 Mg/10 Ml Vial) 40 mg IVPUSH BID@0630,1630 [facility] Last Admin: 03/21/25 05:35 Dose: 40 mg Pharmacy Consult (Consult Rx Etoh Phenob Im/Po) 1 each MISCELLANE ONCE PRN; Protocol PRN Reason: Consult order Phenobarbital (Phenobarbital 30 Mg Tablet) 30 mg PO BID [facility]; Protocol Stop: 03/22/25 21:01 Last Admin: 03/21/25 08:08 Dose: 30 mg Phenobarbital (Phenobarbital 15 Mg Tablet) 15 mg PO BID [facility]; Protocol Stop: 03/24/25 21:01 Phenobarbital (Phenobarbital 15 Mg Tablet) 15 mg PO DAILY [facility]; Protocol Stop: 03/26/25 09:01 Sodium Chloride (0.9 % Sodium Chloride Flush 3 Ml Syringe) [facility] Last Admin: 03/21/25 08:09 Dose: 3 ml Home Medications ?Medication ?Instructions ?Recorded ?Confirmed ?Last Taken ?Type carvedilol 3.125 mg tablet 3.125 mg PO BID 03/20/25 03/20/25 Unknown History gabapentin 300 mg capsule 300 mg PO TID PRN Pain 03/20/25 03/20/25 Unknown History lansoprazole 30 mg capsule,delayed 30 mg PO DAILY@0630 03/20/25 03/20/25 Unknown History release Exam Height,Weight and Vital Signs: Height 5 ft 6 in Weight 60.5 kg Last Vital Signs Temp 97.7 F 03/21/25 07:27 Pulse 71 03/21/25 08:08 Resp 19 03/21/25 07:27 BP 137/72 03/21/25 08:08 Pulse Ox 97 03/21/25 07:27 O2 Del Method Room Air 03/21/25 07:27 Pertinent Lab Results Pertinent Lab Results: Laboratory Tests 03/20/25 03/20/25 03/20/25 13:51 14:17 15:09 WBC 5.1 RBC 3.93 L Hgb 14.5 Hct 42.1 MCV 107.1 H MCH 36.9 H MCHC 34.4 RDW 13.6 Plt Count 119 L MPV 10.1 Immature Gran % (Auto) 0.6 H Neut % (Auto) 63.3 Lymph % (Auto) 26.5 [place] % (Auto) 7.8 Eos % (Auto) 0.4 Baso % (Auto) 1.4 Lymph # (Auto) 1.4 [place] # (Auto) 0.4 Eos # (Auto) 0.0 Baso # (Auto) 0.1 Abs Immat Gran (auto) 0.03 Absolute Neuts (auto) 3.3 Absolute Nucleated RBC 0.020 H Nucleated RBC % (auto) 0.4 H PT 13.1 H INR 1.1 Sodium 143 Potassium 4.9 Chloride 102 Carbon Dioxide 19 L Anion Gap 27 H BUN 10 Creatinine 0.55 Estim Creat Clear Calc 95.5 Estimated GFR > 60 Random Glucose 94 Calcium 9.8 Magnesium 1.7 Total Bilirubin 4.4 H Direct Bilirubin 2.3 H AST 384 H ALT 106 H Alkaline Phosphatase 190 H Troponin I High Sens < 2.7 B-Natriuretic Peptide < 10 Total Protein 8.9 H Albumin 5.1 H Lipase 31 Vitamin B12 Folate Stool Occult Blood NEGATIVE Urine Opiates Screen Not Detected Ur Buprenorphine Scrn Not Detected Ur Oxycodone Screen Not Detected Urine Methadone Screen Not Detected Urine Fentanyl Screen Not Detected Ur Barbiturates Screen Not Detected Ur Phencyclidine Scrn Not Detected Ur Amphetamines Screen Not Detected U Benzodiazepines Scrn Not Detected Urine Cocaine Screen Not Detected U Marijuana (THC) Screen Not Detected Ethyl Alcohol 152 Hep Bs Antigen Hep Bs Antibody Hep B Core Total Ab Hepatitis C Ab (EIA) Blood Type Antibody Screen 03/20/25 03/20/25 03/21/25 16:00 17:20 07:24 WBC 3.9 L 2.9 L RBC 3.42 L 3.35 L Hgb 12.9 12.6 Hct 35.9 L 35.8 L MCV 105.0 H 106.9 H MCH 37.7 H 37.6 H MCHC 35.9 H 35.2 H RDW 14.0 13.8 Plt Count 85 L D 84 L MPV 9.6 9.6 Immature Gran % (Auto) Neut % (Auto) Lymph % (Auto) [place] % (Auto) Eos % (Auto) Baso % (Auto) Lymph # (Auto) [place] # (Auto) Eos # (Auto) Baso # (Auto) Abs Immat Gran (auto) Absolute Neuts (auto) Absolute Nucleated RBC 0.000 0.000 Nucleated RBC % (auto) 0.0 0.0 PT 13.4 H INR 1.2 H Sodium 141 Potassium 4.2 Chloride 105 Carbon Dioxide 17 L Anion Gap 23 H BUN 10 Creatinine 0.58 Estim Creat Clear Calc 90.5 Estimated GFR > 60 Random Glucose 74 Calcium 8.9 D Magnesium 2.0 Total Bilirubin 4.1 H Direct Bilirubin AST 204 H ALT 72 H Alkaline Phosphatase 137 H Troponin I High Sens B-Natriuretic Peptide Total Protein 7.0 Albumin 4.2 Lipase Vitamin B12 468 Folate 3.7 L Stool Occult Blood Urine Opiates Screen Ur Buprenorphine Scrn Ur Oxycodone Screen Urine Methadone Screen Urine Fentanyl Screen Ur Barbiturates Screen Ur Phencyclidine Scrn Ur Amphetamines Screen U Benzodiazepines Scrn Urine Cocaine Screen U Marijuana (THC) Screen Ethyl Alcohol Hep Bs Antigen Negative Hep Bs Antibody NONREACTIVE Hep B Core Total Ab Nonreactive Hepatitis C Ab (EIA) Nonreactive Blood Type O Positive Antibody Screen NEGATIVE Narrative Narrative: EKG 03/20/25 Vent. Rate : 92 BPM Atrial Rate : 92 BPM P-R Int : 164 ms QRS Dur : 54 ms QT Int : 366 ms P-R-T Axes : 48 7 78 degrees QTcB Int : 452 ms Artifact in tracing Normal sinus rhythm Low voltage QRS Septal infarct , age undetermined Abnormal ECG When compared with ECG of 05-Jan-2024 05:41, No significant change was found Echo 2022 Conclusions: - 1. Normal LV systolic function with LVEF of 55-60% 2. Mild aortic regurgitation 3. Mildly dilated ascending aorta at 3.8 cm 4. Normal RV systolic pressure 5. No pericardial effusion Airway Mallampati Class: IV TM Dist: >3cm Neck ROM: Full Loose/Missing/Broken Teeth: Yes, Upper (implants) and Lower (missing, broken) Heart: RRR Lungs: CTAB Assessment and Plan Final Anesthetic Review Family History of Problems with Anesthesia: No History of Problems with Anesthesia: No Documented by User: Susannah Atkins MD 03/21/25 12:52 [facility] Past Medical History Medical History Myocardial infarct Alcohol use disorder Multinodular thyroid Anxiety CHF (congestive heart failure) ETOH abuse Family History Family History Mother Cancer Father No problems noted. Surgical History Surgical History History of esophagogastroduodenoscopy (EGD) Hx of colonoscopy Hx of hysterectomy Social History Social History Household Members: Friend(s) Household Members Other:: roommate Housing: House Do you presently have visiting nurse or other home services: No Alcohol intake: current Alcohol intake frequency: 3 or more drinks per day Alcohol type: wine Patient Tobacco Use Status: Never used Tobacco Second Hand Smoke Exposure: Yes Substance Use Type: Crack/Cocaine Advance Directives Date on File: 07/22/23 service: No Current occupational status: disabled Meds Allergies Allergy/AdvReac Type Severity Reaction Status Date / Time No Known Allergies (No Known Allergy Verified 03/20/25 13:37 Allergies*) Home Medications ?Medication ?Instructions ?Recorded ?Confirmed ?Last Taken ?Type carvedilol 3.125 mg tablet 3.125 mg PO BID 03/20/25 03/20/25 Unknown History gabapentin 300 mg capsule 300 mg PO TID PRN Pain 03/20/25 03/20/25 Unknown History lansoprazole 30 mg capsule,delayed 30 mg PO DAILY@0630 03/20/25 03/20/25 Unknown History release Exam Airway Mallampati Class: III Assessment and Plan Assessment Anesthesia Assessment: Anesthesia Plan Discussed and Chart Reviewed Final Anesthetic Review NPO: Yes ASA Class: III Final Preanesthetic Review: No Changes in Pt Med Stat, Meds/Allgs Chart Reviewed, Consent Obtained/Reviewed and Anes Risks/Benef Reviewed Patient Risk: Intermediate Procedure Risk: Intermediate Anesthetic Plan Anesthetic Plan: MAC: Disposition: Standard PACU
--- NOTE | 2025-03-21 09:48 | P.PNIM_ITS ---
Subjective Subjective Date of Service: 03/21/25 Interval History: No hematemesis, hematochezia, or melena. No tremors. Review of Systems Review of Systems: Yes all other systems are reviewed and are negative Physical Exam 2 Vital Signs: Vital Signs: Last Vital Signs Temp 97.7 F 03/21/25 07:27 Pulse 71 03/21/25 08:08 Resp 19 03/21/25 07:27 BP 137/72 03/21/25 08:08 Pulse Ox 97 03/21/25 07:27 O2 Del Method Room Air 03/21/25 07:27 BMI result Body Mass Index 21.5 Gen: in no acute distress HEENT: sclera icteric, moist mucus membranes Neck: supple Lungs: clear to auscultation bilaterally Heart: regular rate and rhythm, no murmurs Abd: soft, non-tender, non-distended Ext: no edema Skin: warm/well-perfused Neuro: alert and oriented x3, no focal findings Psych: appropriate affect Objective Data Active Medications Acetaminophen (Acetaminophen 325 Mg Tablet) 650 mg PO Q6H PRN PRN Reason: Pain, Mild 1-3,fever,headache Calcium Carbonate (Calcium Carbonate 750 Mg Tab.Chew) 750 mg PO Q4H PRN PRN Reason: Heartburn Carvedilol (Carvedilol 3.125 Mg Tablet) 3.125 mg PO BID [facility]; Protocol Last Admin: 03/21/25 08:08 Dose: 3.125 mg Documented By: UMM Gabapentin (Gabapentin 300 Mg Capsule) 300 mg PO TID PRN PRN Reason: neuropathy Thiamine HCl 100 mg/ Sodium (Chloride) 101 mls @ 202 mls/hr IV DAILY [facility] Last Infusion: 03/21/25 08:39 Dose: Infused Documented By: UMM Magnesium Hydroxide (Milk Of Magnesia 30 Ml Oral.Susp) 30 ml PO DAILY PRN PRN Reason: Constipation Melatonin (Melatonin 3 Mg Tablet) 6 mg PO BEDTIME PRN PRN Reason: Insomnia Ondansetron HCl (Ondansetron Hcl 4 Mg/2 Ml Vial) 4 mg IVPUSH Q4H PRN PRN Reason: Nausea and Vomiting Pantoprazole Sodium (Pantoprazole Sodium 40 Mg/10 Ml Vial) 40 mg IVPUSH BID@0630,1630 [facility] Last Admin: 03/21/25 05:35 Dose: 40 mg Documented By: WILTON Pharmacy Consult (Consult Rx Etoh Phenob Im/Po) 1 each MISCELLANE ONCE PRN; Protocol PRN Reason: Consult order Phenobarbital (Phenobarbital 30 Mg Tablet) 30 mg PO BID [facility]; Protocol Stop: 03/22/25 21:01 Last Admin: 03/21/25 08:08 Dose: 30 mg Documented By: UMM Phenobarbital (Phenobarbital 15 Mg Tablet) 15 mg PO BID [facility]; Protocol Stop: 03/24/25 21:01 Phenobarbital (Phenobarbital 15 Mg Tablet) 15 mg PO DAILY [facility]; Protocol Stop: 03/26/25 09:01 Sodium Chloride (0.9 % Sodium Chloride Flush 3 Ml Syringe) 3 ml IVFLUSH QSHIFT [facility] Last Admin: 03/21/25 08:09 Dose: 3 ml Documented By: UMM Labs 03/21/25 07:24 03/21/25 07:24 Labs: Laboratory Results - last 24 hr 03/20/25 03/20/25 03/20/25 13:51 14:17 15:09 MCV 107.1 H MCH 36.9 H MCHC 34.4 RDW 13.6 Plt Count 119 L MPV 10.1 Immature Gran % (Auto) 0.6 H Neut % (Auto) 63.3 Lymph % (Auto) 26.5 [place] % (Auto) 7.8 Eos % (Auto) 0.4 Baso % (Auto) 1.4 Lymph # (Auto) 1.4 [place] # (Auto) 0.4 Eos # (Auto) 0.0 Baso # (Auto) 0.1 Abs Immat Gran (auto) 0.03 Absolute Neuts (auto) 3.3 Absolute Nucleated RBC 0.020 H Nucleated RBC % (auto) 0.4 H PT 13.1 H INR 1.1 Anion Gap 27 H Estim Creat Clear Calc 95.5 Estimated GFR > 60 Random Glucose 94 Calcium 9.8 Magnesium 1.7 Total Bilirubin 4.4 H Direct Bilirubin 2.3 H AST 384 H ALT 106 H Alkaline Phosphatase 190 H B-Natriuretic Peptide < 10 Total Protein 8.9 H Albumin 5.1 H Lipase 31 Vitamin B12 Folate Stool Occult Blood NEGATIVE Urine Opiates Screen Not Detected Ur Buprenorphine Scrn Not Detected Ur Oxycodone Screen Not Detected Urine Methadone Screen Not Detected Urine Fentanyl Screen Not Detected Ur Barbiturates Screen Not Detected Ur Phencyclidine Scrn Not Detected Ur Amphetamines Screen Not Detected U Benzodiazepines Scrn Not Detected Urine Cocaine Screen Not Detected U Marijuana (THC) Screen Not Detected Ethyl Alcohol 152 Hep Bs Antigen Hep Bs Antibody Hep B Core Total Ab Hepatitis C Ab (EIA) Blood Type Antibody Screen 03/20/25 03/20/25 03/21/25 16:00 17:20 07:24 MCV 105.0 H 106.9 H MCH 37.7 H 37.6 H MCHC 35.9 H 35.2 H RDW 14.0 13.8 Plt Count 85 L D 84 L MPV 9.6 9.6 Immature Gran % (Auto) Neut % (Auto) Lymph % (Auto) [place] % (Auto) Eos % (Auto) Baso % (Auto) Lymph # (Auto) [place] # (Auto) Eos # (Auto) Baso # (Auto) Abs Immat Gran (auto) Absolute Neuts (auto) Absolute Nucleated RBC 0.000 0.000 Nucleated RBC % (auto) 0.0 0.0 PT 13.4 H INR 1.2 H Anion Gap 23 H Estim Creat Clear Calc 90.5 Estimated GFR > 60 Random Glucose 74 Calcium 8.9 D Magnesium 2.0 Total Bilirubin 4.1 H Direct Bilirubin AST 204 H ALT 72 H Alkaline Phosphatase 137 H B-Natriuretic Peptide Total Protein 7.0 Albumin 4.2 Lipase Vitamin B12 468 Folate 3.7 L Stool Occult Blood Urine Opiates Screen Ur Buprenorphine Scrn Ur Oxycodone Screen Urine Methadone Screen Urine Fentanyl Screen Ur Barbiturates Screen Ur Phencyclidine Scrn Ur Amphetamines Screen U Benzodiazepines Scrn Urine Cocaine Screen U Marijuana (THC) Screen Ethyl Alcohol Hep Bs Antigen Negative Hep Bs Antibody NONREACTIVE Hep B Core Total Ab Nonreactive Hepatitis C Ab (EIA) Nonreactive Blood Type O Positive Antibody Screen NEGATIVE Assessment and Plan (1) Hematemesis: Status: Acute Plan d2 for 64yo F with AUD, HFpEF, GERD, HTN, and neuropathy presenting with haematemesis UGIB - continue IV PPI, EGD today H+H stable, no cirrhosis on US EtOH hepatitis - MDF 10, no steroids indicated, sobriety counseled AUD - Addiction Medicine consult pending - started on phenobarbital taper to prevent withdrawal; continue multivitamin neuropathy - gabapentin, alcohol cessation HFpEF HTN - carvedilol VTE ppx - SCDs dispo - eventual home In my clinical judgment, the patient requires continued inpatient hospitalization for the following reasons: GIB/EGD, phenobarbital taper Quality Stroke Does the patient have a stroke diagnosis?: No VTE Prior VTE?: No VTE Risk Level:: Medical - moderate - high VTE Device Contraindication: N/A - Device Ordered VTE Drug Contraindication: Treatment Not Indicated
--- NOTE | 2025-03-21 09:49 | MHC.CM.PN ---
IMM 03/21/25, Pt. lives with other in an apt. she does not have home care services, did have one year ago after a stay in [facility] for STR. PCP is: [facility]add[facility], HCP on file and confirmed naming Avis and Nhi. Pt. does not use DME. she is able to arrange a ride home at [place], DCP: home, self care. CM to follow for DC needs.
--- NOTE | 2025-03-21 12:51 | PC.NURSE ---
22g in bilateral left and right hand. intact. no leaking.
--- NOTE | 2025-03-21 13:27 | W.PM.OPN ---
Operative Note Operative Note Date of Service: 03/21/25 Narrative: FLEXIBLE TRANSORAL UPPER GASTROINTESTINAL ENDOSCOPY WITH BIOPSIES AND ESOPHAGEAL BRUSHINGS Pre-op diagnosis: Upper GI bleeding, anemia Post-op diagnosis: Esophagitis, hiatal hernia, gastritis, multiple gastric polyps Endoscopist:? Krystle Ramos MD Anesthesia:?MAC UPPER ENDOSCOPY Consent: Indications for the procedure and potential complications of bleeding, perforation, reaction to medications and missed diagnosis were discussed with the patient and informed consent was obtained. Instrument: Olympus GIF H 190 mid size upper endoscope Monitoring: Vital signs and clinical assessment, continuous EKG monitoring, Pulse oximetry, Carbon Dioxide monitoring and blood pressure monitoring were done throughout the procedure. Procedure: The patient was placed in the left lateral decubitis position and pre-procedure medications were administered and a bite block was placed. The endoscope was inserted into the mouth and advanced under direct vision to the third part of duodenum. A careful inspection was made as the upper endoscope was withdrawn including a retroflexed examination of the proximal stomach; Findings and interventions are described below. Findings: Larynx: Normal Esophagus: GE junction at 35 cms, small hiatal hernia 35 to 38 cms. Severe esophagitis involving the entire esophagus with ulcerations, white exudate and denuded mucosa Biopsies were obtained for histology, HSV and CMV cultures. Brushings were obtained to check for Lilian esophagitis. Stomach: Multiple 5 to 15 mm benign-appearing polyps in the gastric body and fundus - 2 polyps were biopsied. Moderate diffuse gastric erythema - biopsies were obtained from the antrum. Grade 2 flap valve on retroflexed examination of the cardia. Duodenum: Normal bulb and descending duodenum Intervention: Biopsies as noted above Impression and Post Procedure Diagnosis: Endoscopy Findings: ESOPHAGUS: Small hiatal hernia. Severe esophagitis involving the entire esophagus with ulcerations, white exudate and denuded mucosa Bxed for histology, HSV and CMV cultures and brushings were obtained to check for Lilian esophagitis. STOMACH: Diffuse gastritis and multiple gastric polyps DUODENUM: Normal No blood or active bleeding seen in the UGI tract during EGD. Episode of hematemesis likely from severe esophagitis/MW tear which has healed. Plan: 1. Start a cardiac diet - ordered 2. Follow CBC and LFTs daily. 3. I will contact the patient with biopsy and culture results Above findings were reviewed with the patient. BIOPSIES SHOWED: A. Gastric antrum, biopsy: Gastric antral mucosa with mild reactive changes and focal minimal chronic inactive inflammation; negative for intestinal metaplasia and dysplasia. B. Gastric polyps, biopsy: Fundic gland polyps with focal minimal chronic inactive inflammation; negative for intestinal metaplasia and dysplasia. C. Esophagus, biopsy: Squamous mucosa with rare neutrophils, scant hyperkeratosis and parakeratosis, and superficial epithelial necrosis with bacteria; no columnar mucosa present (see comment). Comment: (A and B): Immunostains for H. pylori were negative. (C): Appearances suggest esophagitis dissecans superficialis and clinical correlation is necessary
--- NOTE | 2025-03-21 15:31 | HO.ADDICT_ITS ---
History of Present Illness Date of Service: 03/21/2025 Chief Complaint: HEMATEMESIS Reason for Consult: AUD Sources of Information: patient interviewed and chart reviewed HPI Narrative: Patient is a 64 year old female medically admitted with hematemesis and alcohol withdrawal. Seen in room 474. She is awake, alert, pleasant and engaged in interview. She reports a long history of alcohol use disorder and currently drinking a bottle of wine daily--from 8am until 5pm, then I eat at night . She has been seen many times at [facility] for various alcohol related reasons. History of several treatment admissions Denies any other substance use. Denies any withdrawal sx when seen by t/w, and none observed. Discussed current admission and how alcohol relates to this, patient showing limited insight into relationship of ongoing alcohol use and health issues. She feels that the amount she drinks is so minimal, that it should not be an issue. 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 She is knowledgeable of community resources, and has a cross country coach through [facility] who comes to her home every Monday. When asked about her goals with alcohol, she said she would like to cut down on drinking but is very bored at home. Not interested in mutual aid groups as they make me what to drink . Has trialled [facility], and did not find it helpful. Lives with her BF, his son, an older gentleman. Reports having no social supports, and spends most of her day in bed. Seen by GI, and EGD completed showing severe esophagitis. Pancytopenia elevated liver enzymes--bili Medical Evaluation Reviewed: Yes Review of Systems Constitutional: Reports as per HPI, Reports lethargy and Reports weakness Musculoskeletal: Reports tingling Reports tingling and Reports weakness Psychiatric: Reports anhedonia Diagnostics Vital Signs (24Hr): Vital Signs - 24 hr 03/20/25 17:27 03/20/25 19:18 03/20/25 20:57 Temperature 98.4 F 98.3 F 98.0 F Pulse Rate 90 81 95 Respiratory Rate 12 15 18 Blood Pressure 132/74 138/76 168/82 H Pulse Oximetry 100 98 100 Oxygen Delivery Method Room Air Room Air Room Air 03/20/25 23:59 03/21/25 04:00 03/21/25 07:27 Temperature 97.6 F 98.4 F 97.7 F Pulse Rate 68 72 71 Respiratory Rate 17 16 19 Blood Pressure 143/78 H 137/62 137/72 Pulse Oximetry 99 100 97 Oxygen Delivery Method Room Air Room Air Room Air 03/21/25 08:08 03/21/25 11:10 03/21/25 12:48 Temperature 97.7 F 96.5 F L Pulse Rate 71 68 74 Respiratory Rate 18 16 Blood Pressure 137/72 114/59 L 132/68 Pulse Oximetry 96 99 Oxygen Delivery Method Room Air Room Air 03/21/25 13:29 03/21/25 13:45 Temperature 97.2 F 97.3 F Pulse Rate 70 73 Respiratory Rate 16 16 Blood Pressure 95/47 L 106/52 L Pulse Oximetry 96 97 Oxygen Delivery Method Room Air Room Air BMI result Body Mass Index 21.5 Labs 03/21/25 07:24 03/21/25 07:24 Labs: Laboratory Results - last 48 hr 03/20/25 03/20/25 03/20/25 13:51 14:17 15:09 WBC 5.1 RBC 3.93 L Hgb 14.5 Hct 42.1 MCV 107.1 H MCH 36.9 H MCHC 34.4 RDW 13.6 Plt Count 119 L MPV 10.1 Immature Gran % (Auto) 0.6 H Neut % (Auto) 63.3 Lymph % (Auto) 26.5 Jones % (Auto) 7.8 Eos % (Auto) 0.4 Baso % (Auto) 1.4 Lymph # (Auto) 1.4 Jones # (Auto) 0.4 Eos # (Auto) 0.0 Baso # (Auto) 0.1 Abs Immat Gran (auto) 0.03 Absolute Neuts (auto) 3.3 Absolute Nucleated RBC 0.020 H Nucleated RBC % (auto) 0.4 H PT 13.1 H INR 1.1 Sodium 143 Potassium 4.9 Chloride 102 Carbon Dioxide 19 L Anion Gap 27 H BUN 10 Creatinine 0.55 Estim Creat Clear Calc 95.5 Estimated GFR > 60 Random Glucose 94 Calcium 9.8 Magnesium 1.7 Total Bilirubin 4.4 H Direct Bilirubin 2.3 H AST 384 H ALT 106 H Alkaline Phosphatase 190 H Troponin I High Sens < 2.7 B-Natriuretic Peptide < 10 Total Protein 8.9 H Albumin 5.1 H Lipase 31 Vitamin B12 Folate TSH Stool Occult Blood NEGATIVE Urine Opiates Screen Not Detected Ur Buprenorphine Scrn Not Detected Ur Oxycodone Screen Not Detected Urine Methadone Screen Not Detected Urine Fentanyl Screen Not Detected Ur Barbiturates Screen Not Detected Ur Phencyclidine Scrn Not Detected Ur Amphetamines Screen Not Detected U Benzodiazepines Scrn Not Detected Urine Cocaine Screen Not Detected U Marijuana (THC) Screen Not Detected Ethyl Alcohol 152 Hep Bs Antigen Hep Bs Antibody Hep B Core Total Ab Hepatitis C Ab (EIA) Blood Type Antibody Screen 03/20/25 03/20/25 03/21/25 16:00 17:20 07:24 WBC 3.9 L 2.9 L RBC 3.42 L 3.35 L Hgb 12.9 12.6 Hct 35.9 L 35.8 L MCV 105.0 H 106.9 H MCH 37.7 H 37.6 H MCHC 35.9 H 35.2 H RDW 14.0 13.8 Plt Count 85 L D 84 L MPV 9.6 9.6 Immature Gran % (Auto) Neut % (Auto) Lymph % (Auto) Jones % (Auto) Eos % (Auto) Baso % (Auto) Lymph # (Auto) Jones # (Auto) Eos # (Auto) Baso # (Auto) Abs Immat Gran (auto) Absolute Neuts (auto) Absolute Nucleated RBC 0.000 0.000 Nucleated RBC % (auto) 0.0 0.0 PT 13.4 H INR 1.2 H Sodium 141 Potassium 4.2 Chloride 105 Carbon Dioxide 17 L Anion Gap 23 H BUN 10 Creatinine 0.58 Estim Creat Clear Calc 90.5 Estimated GFR > 60 Random Glucose 74 Calcium 8.9 D Magnesium 2.0 Total Bilirubin 4.1 H Direct Bilirubin AST 204 H ALT 72 H Alkaline Phosphatase 137 H Troponin I High Sens B-Natriuretic Peptide Total Protein 7.0 Albumin 4.2 Lipase Vitamin B12 468 Folate 3.7 L TSH 1.23 Stool Occult Blood Urine Opiates Screen Ur Buprenorphine Scrn Ur Oxycodone Screen Urine Methadone Screen Urine Fentanyl Screen Ur Barbiturates Screen Ur Phencyclidine Scrn Ur Amphetamines Screen U Benzodiazepines Scrn Urine Cocaine Screen U Marijuana (THC) Screen Ethyl Alcohol Hep Bs Antigen Negative Hep Bs Antibody NONREACTIVE Hep B Core Total Ab Nonreactive Hepatitis C Ab (EIA) Nonreactive Blood Type O Positive Antibody Screen NEGATIVE Imaging Radiology Impressions: ITS Impressions Abdomen Ultrasound 03/20/25 16:41 IMPRESSION: Cholelithiasis and gallbladder sludge. Fatty liver. Electronically signed by: Lopez Smiley MD 03/20/2025 05:38 PM EDT Mental Status Exam Mental Status Exam Level of Consciousness: Awake and Alert Patient Behavior: Talkative and Cooperative Affect Description: Appropriate Speech Pattern: Slurred Hallucinations: None Thought Process: Intact Thought Content: positive for [place] Judgement: Fair (limited ) Medications Medications Current Medications Acetaminophen (Acetaminophen 325 Mg Tablet) 650 mg PO Q6H PRN PRN Reason: Pain, Mild 1-3,fever,headache Calcium Carbonate (Calcium Carbonate 750 Mg Tab.Chew) 750 mg PO Q4H PRN PRN Reason: Heartburn Carvedilol (Carvedilol 3.125 Mg Tablet) 3.125 mg PO BID [facility]; Protocol Last Admin: 03/21/25 08:08 Dose: 3.125 mg Gabapentin (Gabapentin 300 Mg Capsule) 300 mg PO TID PRN PRN Reason: neuropathy Thiamine HCl 100 mg/ Sodium (Chloride) 101 mls @ 202 mls/hr IV DAILY [facility] Last Infusion: 03/21/25 08:39 Dose: Infused Magnesium Hydroxide (Milk Of Magnesia 30 Ml Oral.Susp) 30 ml PO DAILY PRN PRN Reason: Constipation Melatonin (Melatonin 3 Mg Tablet) 6 mg PO BEDTIME PRN PRN Reason: Insomnia Ondansetron HCl (Ondansetron Hcl 4 Mg/2 Ml Vial) 4 mg IVPUSH Q4H PRN PRN Reason: Nausea and Vomiting Pantoprazole Sodium (Pantoprazole Sodium 40 Mg/10 Ml Vial) 40 mg IVPUSH BID@0630,1630 [facility] Last Admin: 03/21/25 05:35 Dose: 40 mg Pharmacy Consult (Consult Rx Etoh Phenob Im/Po) 1 each MISCELLANE ONCE PRN; Protocol PRN Reason: Consult order Phenobarbital (Phenobarbital 30 Mg Tablet) 30 mg PO BID [facility]; Protocol Stop: 03/22/25 21:01 Last Admin: 03/21/25 08:08 Dose: 30 mg Phenobarbital (Phenobarbital 15 Mg Tablet) 15 mg PO BID [facility]; Protocol Stop: 03/24/25 21:01 Phenobarbital (Phenobarbital 15 Mg Tablet) 15 mg PO DAILY [facility]; Protocol Stop: 03/26/25 09:01 Sodium Chloride (0.9 % Sodium Chloride Flush 3 Ml Syringe) 3 ml IVFLUSH QSHIFT [facility] Last Admin: 03/21/25 08:09 Dose: 3 ml Allergies Allergies Allergy/AdvReac Type Severity Reaction Status Date / Time No Known Allergies (No Known Allergy Verified 03/20/25 13:37 Allergies*) Assessment & Plan Assessment & Plan (1) Alcohol use disorder, severe, dependence: Status: Acute Code(s): F10.20 - Alcohol dependence, uncomplicated Assessment and Plan: * Withdrawal managed appropriately--pheno taper * IV thiamine appropriate 2-3 days, then switch back to PO * speech sounded slightly slurred--unsure if it is related to her dentures, no other neuro deficits noted. Consider checking ammonia with AM labs * Recovery support RN to follow up over the weekend to discuss safer drinking strategies and other supports as accepted by patient Total time managing care of this patient today __40__ minutes. PMFSH Past Medical History Medical History Myocardial infarct Alcohol use disorder Multinodular thyroid Anxiety CHF (congestive heart failure) ETOH abuse Family History Family History Mother Cancer Father No problems noted. Surgical History Surgical History History of esophagogastroduodenoscopy (EGD) Hx of colonoscopy Hx of hysterectomy Social History Social History Household Members: Friend(s) Household Members Other:: roommate Housing: House Do you presently have visiting nurse or other home services: No Alcohol intake: current Alcohol intake frequency: 3 or more drinks per day Alcohol type: wine Patient Tobacco Use Status: Never used Tobacco Second Hand Smoke Exposure: Yes Substance Use Type: Crack/Cocaine Advance Directives Date on File: 07/22/23 service: No Current occupational status: disabled
[2025-03-22] VITALS (7 sets, daily range): BP systolic 101–136; BP diastolic 55–66; PULSE 68–75; RESP 18–20; TEMP 36.1–36.7; O2SAT 97–100
[2025-03-22 07:32] LABS: Hematocrit 34.1 % (37.0-47.0); Hemoglobin 12.0 g/dl (12.0-16.0); Mean Corpuscular HGB Conc 35.2 g/dl (31.0-35.0); Mean Corpuscular Hemoglobin 37.4 pg (27.0-33.0); Mean Corpuscular Volume 106.2 fL (80.0-98.0); NRBC Abs Auto 0.000 X10*3/uL (0.0-0.012); NRBC Pct Auto 0.0 /100WBC (0.0-0.2); Red Blood Count 3.21 X10*6/uL (4.20-5.50); White Blood Count 2.7 X10*3/uL (4.8-10.8)
[2025-03-22 07:36] LABS: Platelet Count 74 X10*3/uL (160-400)
[2025-03-22 07:50] LABS: Alanine Aminotransferase 61 U/L (0-31); Albumin Level 4.0 g/dL (3.5-5.0); Alkaline Phosphatase 126 U/L (39-117); Anion Gap 16 (12-20); Aspartate Amino Transferase 151 U/L (5-31); Blood Urea Nitrogen 9 mg/dL (9-16); Calcium 9.1 mg/dL (8.4-10.2); Carbon Dioxide 21 mmol/L (22-29); Chloride 105 mmol/L (96-108); Creatinine Clr Calc Pharmacy 97.2; Estimated Glomerular Filt Rate > 60; Potassium 3.5 mmol/L (3.3-5.1); Sodium 138 mmol/L (135-145); Total Protein 6.6 g/dL (6.5-8.0)
[2025-03-22] MEDS: Thiamine HCL 100 MG in 0.9 % Sodium Chloride 100 ML 200 MG IV (08:11)
[2025-03-22] MEDS: 0.9 % Sodium Chloride Flush 3 ML SYRINGE IVFLUSH ×3 (08:12→20:00)
--- NOTE | 2025-03-22 10:35 | P.PNIM_ITS ---
Subjective Subjective Date of Service: 03/22/25 Interval History: No hematemesis, hematochezia, or melena. Some abd discomfort. No tremors. Review of Systems Review of Systems: Yes all other systems are reviewed and are negative Physical Exam 2 Vital Signs: Vital Signs: Last Vital Signs Temp 97.4 F 03/22/25 08:00 Pulse 68 03/22/25 08:09 Resp 20 03/22/25 08:00 BP 136/66 03/22/25 08:09 Pulse Ox 97 03/22/25 08:00 O2 Del Method Room Air 03/22/25 08:00 BMI result Body Mass Index 21.5 Gen: in no acute distress HEENT: sclera icteric, moist mucus membranes Neck: supple Lungs: clear to auscultation bilaterally Heart: regular rate and rhythm, no murmurs Abd: soft, non-tender, non-distended Ext: no edema Skin: warm/well-perfused Neuro: alert and oriented x3, no focal findings Psych: appropriate affect Objective Data Active Medications Acetaminophen (Acetaminophen 325 Mg Tablet) 650 mg PO Q6H PRN PRN Reason: Pain, Mild 1-3,fever,headache Calcium Carbonate (Calcium Carbonate 750 Mg Tab.Chew) 750 mg PO Q4H PRN PRN Reason: Heartburn Carvedilol (Carvedilol 3.125 Mg Tablet) 3.125 mg PO BID [facility]; Protocol Last Admin: 03/22/25 08:09 Dose: 3.125 mg Documented By: ROCKY Gabapentin (Gabapentin 300 Mg Capsule) 300 mg PO TID PRN PRN Reason: neuropathy Last Admin: 03/21/25 20:23 Dose: 300 mg Documented By: BENJIE Thiamine HCl 100 mg/ Sodium (Chloride) 101 mls @ 202 mls/hr IV DAILY [facility] Last Infusion: 03/22/25 09:01 Dose: Infused Documented By: ROCKY Magnesium Hydroxide (Milk Of Magnesia 30 Ml Oral.Susp) 30 ml PO DAILY PRN PRN Reason: Constipation Melatonin (Melatonin 3 Mg Tablet) 6 mg PO BEDTIME PRN PRN Reason: Insomnia Omeprazole (Omeprazole 20 Mg Capsule.) 20 mg PO BID@0630,1630 [facility] Ondansetron HCl (Ondansetron Hcl 4 Mg/2 Ml Vial) 4 mg IVPUSH Q4H PRN PRN Reason: Nausea and Vomiting Pharmacy Consult (Consult Rx Etoh Phenob Im/Po) 1 each MISCELLANE ONCE PRN; Protocol PRN Reason: Consult order Phenobarbital (Phenobarbital 30 Mg Tablet) 30 mg PO BID [facility]; Protocol Stop: 03/22/25 21:01 Last Admin: 03/22/25 08:10 Dose: 30 mg Documented By: ROCKY Phenobarbital (Phenobarbital 15 Mg Tablet) 15 mg PO BID [facility]; Protocol Stop: 03/24/25 21:01 Phenobarbital (Phenobarbital 15 Mg Tablet) 15 mg PO DAILY [facility]; Protocol Stop: 03/26/25 09:01 Sodium Chloride (0.9 % Sodium Chloride Flush 3 Ml Syringe) 3 ml IVFLUSH QSHIFT [facility] Last Admin: 03/22/25 08:12 Dose: 3 ml Documented By: ROCKY Labs 03/22/25 07:15 03/22/25 07:15 Labs: Laboratory Results - last 24 hr 03/21/25 03/22/25 07:24 07:15 MCV 106.2 H MCH 37.4 H MCHC 35.2 H RDW 13.4 Plt Count 74 L MPV 9.9 Absolute Nucleated RBC 0.000 Nucleated RBC % (auto) 0.0 Anion Gap 16 Estim Creat Clear Calc 97.2 Estimated GFR > 60 Random Glucose 115 Calcium 9.1 Total Bilirubin 3.1 H AST 151 H ALT 61 H Alkaline Phosphatase 126 H Total Protein 6.6 Albumin 4.0 TSH 1.23 Hold Yellow Top See Note Assessment and Plan (1) Hematemesis: Status: Acute Plan d3 for 64yo F with AUD, HFpEF, GERD, HTN, and neuropathy presenting with haematemesis UGIB - EGD 03/21 likely Shelly Porter tear, H+H stable, no cirrhosis on US severe esophagitis on EGD involving the entire esophagus with ulcerations, white exudate and denuded mucosa - biopsies + CMV PCR + HSV cultures pending, needs GI follow-up, change IV to PO PPI EtOH hepatitis - MDF 10, no steroids indicated, sobriety counseled AUD - Addiction Medicine consulted - started on phenobarbital taper to prevent withdrawal; continue multivitamin neuropathy - gabapentin, alcohol cessation chronic HFpEF HTN - carvedilol VTE ppx - SCDs dispo - eventual home, PT eval In my clinical judgment, the patient requires continued inpatient hospitalization for the following reasons: phenobarbital taper for high-risk EtOH withdrawal Total time managing care of this patient today: 35 minutes. Quality Stroke Does the patient have a stroke diagnosis?: No VTE Prior VTE?: No VTE Risk Level:: Medical - moderate - high VTE Device Contraindication: N/A - Device Ordered VTE Drug Contraindication: Treatment Not Indicated
--- NOTE | 2025-03-22 12:33 | HO.POSTANES ---
Post Anesthesia Evaluation Post Anesthesia Evaluation Date of Service: 03/22/25 Vital Signs: Vital Signs Temp Pulse Resp BP Pulse Ox O2 Del Method 03/22/25 12:00 97.4 F 75 18 105/55 L 99 Room Air 03/22/25 08:09 68 136/66 03/22/25 08:00 97.4 F 74 20 130/66 97 Room Air 03/22/25 04:00 97.0 F 70 20 124/59 L 97 Room Air Anesthesia: TIVA Mental Status: Awake Pain Control: Satisfactory Nausea/Vomiting: None Hydration: Adequate Anesthesia-Related Issues: No Anes. Related Issues
[2025-03-23] VITALS: BP 98/55; PULSE 67; RESP 16; TEMP 36.1; O2SAT 99
[2025-03-23 03:36] VITALS: BP 110/57; PULSE 68; RESP 16; TEMP 36.3; O2SAT 95
[2025-03-23 06:37] LABS: Hematocrit 33.2 % (37.0-47.0); Hemoglobin 11.7 g/dl (12.0-16.0); Mean Corpuscular HGB Conc 35.2 g/dl (31.0-35.0); Mean Corpuscular Hemoglobin 37.3 pg (27.0-33.0); Mean Corpuscular Volume 105.7 fL (80.0-98.0); NRBC Abs Auto 0.000 X10*3/uL (0.0-0.012); NRBC Pct Auto 0.0 /100WBC (0.0-0.2); Platelet Count 76 X10*3/uL (160-400); Red Blood Count 3.14 X10*6/uL (4.20-5.50); White Blood Count 3.3 X10*3/uL (4.8-10.8)
[2025-03-23 06:47] LABS: Ammonia 37 umol/L (13-55)
[2025-03-23 06:57] LABS: Alanine Aminotransferase 66 U/L (0-31); Albumin Level 3.8 g/dL (3.5-5.0); Alkaline Phosphatase 119 U/L (39-117); Anion Gap 12 (12-20); Aspartate Amino Transferase 158 U/L (5-31); Blood Urea Nitrogen 8 mg/dL (9-16); Calcium 9.0 mg/dL (8.4-10.2); Carbon Dioxide 22 mmol/L (22-29); Chloride 109 mmol/L (96-108); Creatinine Clr Calc Pharmacy 97.2; Estimated Glomerular Filt Rate > 60; Potassium 3.0 mmol/L (3.3-5.1); Sodium 140 mmol/L (135-145); Total Protein 6.5 g/dL (6.5-8.0)
[2025-03-23 07:23] LABS: Magnesium 1.4 mg/dL (1.6-2.6)
[2025-03-23 08:00] VITALS: BP 119/82; PULSE 69; RESP 18; TEMP 36.3; O2SAT 98
[2025-03-23] MEDS: Thiamine HCL 100 MG in 0.9 % Sodium Chloride 100 ML 200 MG IV (08:18)
[2025-03-23] MEDS: Potassium Chloride ER 20 MEQ TAB.ER.PRT 40 MEQ PO (08:18)
[2025-03-23] MEDS: 0.9 % Sodium Chloride Flush 3 ML SYRINGE IVFLUSH ×3 (08:18→20:13)
[2025-03-23] MEDS: Magnesium Sulfate/H2O 2 GM/50 ML PIGGYBACK IV (08:26)
--- NOTE | 2025-03-23 10:25 | P.PNIM_ITS ---
Subjective Subjective Date of Service: 03/23/25 Interval History: No hematemesis, hematochezia, or melena. No tremor. C/o epigastric burning. Review of Systems Review of Systems: Yes all other systems are reviewed and are negative Physical Exam 2 Vital Signs: Vital Signs: Last Vital Signs Temp 97.3 F 03/23/25 08:00 Pulse 69 03/23/25 08:00 Resp 18 03/23/25 08:00 BP 119/82 03/23/25 08:00 Pulse Ox 98 03/23/25 08:00 O2 Del Method Room Air 03/23/25 08:00 BMI result Body Mass Index 21.5 Gen: in no acute distress HEENT: sclera icteric, moist mucus membranes Neck: supple Lungs: clear to auscultation bilaterally Heart: regular rate and rhythm, no murmurs Abd: soft, non-tender, non-distended Ext: no edema Skin: warm/well-perfused Neuro: alert and oriented x3, no focal findings Psych: appropriate affect Objective Data Active Medications Acetaminophen (Acetaminophen 325 Mg Tablet) 650 mg PO Q6H PRN PRN Reason: Pain, Mild 1-3,fever,headache Calcium Carbonate (Calcium Carbonate 750 Mg Tab.Chew) 750 mg PO Q4H PRN PRN Reason: Heartburn Carvedilol (Carvedilol 3.125 Mg Tablet) 3.125 mg PO BID [facility]; Protocol Last Admin: 03/23/25 08:18 Dose: 3.125 mg Documented By: ROCKY Folic Acid (Folic Acid 1 Mg Tablet) 1 mg PO DAILY [facility] Last Admin: 03/23/25 08:17 Dose: 1 mg Documented By: ROCKY Gabapentin (Gabapentin 300 Mg Capsule) 300 mg PO TID PRN PRN Reason: neuropathy Last Admin: 03/22/25 20:06 Dose: 300 mg Documented By: ТАТЬЯНА Thiamine HCl 100 mg/ Sodium (Chloride) 101 mls @ 202 mls/hr IV DAILY [facility] Stop: 03/23/25 12:00 Last Infusion: 03/23/25 08:57 Dose: Infused Documented By: ROCKY Magnesium Hydroxide (Milk Of Magnesia 30 Ml Oral.Susp) 30 ml PO DAILY PRN PRN Reason: Constipation Melatonin (Melatonin 3 Mg Tablet) 6 mg PO BEDTIME PRN PRN Reason: Insomnia Multivitamins/Vitamin C (Multivitamin Tablet) 1 tab PO DAILY [facility] Last Admin: 03/23/25 08:17 Dose: 1 tab Documented By: ROCYK Omeprazole (Omeprazole 20 Mg Felipe.) 20 mg PO BID@0630,1630 [facility] Last Admin: 03/23/25 06:09 Dose: 20 mg Documented By: ТАТЬЯНА Ondansetron HCl (Ondansetron Hcl 4 Mg/2 Ml Vial) 4 mg IVPUSH Q4H PRN PRN Reason: Nausea and Vomiting Pharmacy Consult (Consult Rx Etoh Phenob Im/Po) 1 each MISCELLANE ONCE PRN; Protocol PRN Reason: Consult order Phenobarbital (Phenobarbital 15 Mg Tablet) 15 mg PO BID [facility]; Protocol Stop: 03/24/25 21:01 Last Admin: 03/23/25 08:18 Dose: 15 mg Documented By: ROCKY Phenobarbital (Phenobarbital 15 Mg Tablet) 15 mg PO DAILY [facility]; Protocol Stop: 03/26/25 09:01 Sodium Chloride (0.9 % Sodium Chloride Flush 3 Ml Syringe) 3 ml IVFLUSH QSHIFT [facility] Last Admin: 03/23/25 08:18 Dose: 3 ml Documented By: ROCKY Thiamine HCl (Thiamine Hcl 100 Mg Tablet) 100 mg PO DAILY [facility] Labs 03/23/25 06:27 03/23/25 06:27 Labs: Laboratory Results - last 24 hr 03/23/25 06:27 MCV 105.7 H MCH 37.3 H MCHC 35.2 H RDW 13.2 Plt Count 76 L MPV 10.5 Absolute Nucleated RBC 0.000 Nucleated RBC % (auto) 0.0 Anion Gap 12 Estim Creat Clear Calc 97.2 Estimated GFR > 60 Random Glucose 127 H Calcium 9.0 Magnesium 1.4 L* Total Bilirubin 2.7 H AST 158 H ALT 66 H Alkaline Phosphatase 119 H Ammonia 37 Lactate Dehydrogenase 183 Total Protein 6.5 Albumin 3.8 Assessment and Plan (1) Hematemesis: Status: Acute Plan d4 for 64yo F with AUD, HFpEF, GERD, HTN, and neuropathy presenting with haematemesis UGIB - EGD 03/21 likely Shelly Porter tear, H+H stable, no cirrhosis on US severe esophagitis on EGD involving the entire esophagus with ulcerations, white exudate and denuded mucosa - biopsies + CMV PCR + HSV cultures pending, needs GI follow-up, changed IV to PO PPI and will add sucralfate EtOH hepatitis - MDF 10, no steroids indicated, sobriety counseled AUD - Addiction Medicine consulted - started on phenobarbital taper to prevent withdrawal; continue multivitamin hypoMg - replete IV, recheck Mg tomorrow hypoK - replete PO, recheck BMP tomorrow pancytopenia - likely due to EtOH, recheck CBC tomorrow folate deficiency - replete and Rx upon discharge neuropathy - gabapentin, alcohol cessation chronic HFpEF HTN - carvedilol VTE ppx - SCDs dispo - STR per PT eval but re-assess tomorrow In my clinical judgment, the patient requires continued inpatient hospitalization for the following reasons: phenobarbital taper for high-risk EtOH withdrawal, hypoMg Total time managing care of this patient today: 35 minutes. Quality Stroke Does the patient have a stroke diagnosis?: No VTE Prior VTE?: No VTE Risk Level:: Medical - moderate - high VTE Device Contraindication: N/A - Device Ordered VTE Drug Contraindication: Treatment Not Indicated
[2025-03-23 11:16] VITALS: BP 102/70; PULSE 67; RESP 18; TEMP 36.4; O2SAT 100
[2025-03-23] MEDS: Sucralfate Oral Suspension 1 GM/10 ML ORAL.SUSP PO ×3 (11:44→20:10)
--- NOTE | 2025-03-23 14:50 | MHC.RECOVRN ---
TW met with pt in to follow-up on resources left yesterday and discuss [facility] and other supports and resources. On approach pt was laying in bed. She reports feeling irritated today, because they want to send me to a long term for rehab. I;m just going to do rehab here . Pt educated on health promotion and increasing strength for well eing and safety. Pt appeared receptive the information. She denies any ETOH withdrawal symptoms at this time. Nope, I'm doing just fine, thank you . Discussed [facility]. Pt reports she is interested in starting naltrexone PO w/ the pplan to switch to monthly injections. She reports she is interested in [facility] thru [facility]. Vero Abreu at [facility] was emailed regarding referral for [facility] and Provider Nae notified regarding pt request to begin Naltrexone upon discharge. TW available for further questions or concerns.
[2025-03-23 16:00] VITALS: BP 108/53; PULSE 71; RESP 18; TEMP 36.6; O2SAT 97
[2025-03-23 20:00] VITALS: BP 119/55; PULSE 73; RESP 18; TEMP 36.2; O2SAT 98
[2025-03-24] VITALS (8 sets, daily range): BP systolic 83–148; BP diastolic 52–70; PULSE 61–86; RESP 16–20; TEMP 36.2–36.4; O2SAT 94–99
[2025-03-24] MEDS: Sucralfate Oral Suspension 1 GM/10 ML ORAL.SUSP PO ×4 (06:22→20:20)
[2025-03-24 06:31] LABS: Hematocrit 32.3 % (37.0-47.0); Hemoglobin 11.2 g/dl (12.0-16.0); Mean Corpuscular HGB Conc 34.7 g/dl (31.0-35.0); Mean Corpuscular Hemoglobin 37.0 pg (27.0-33.0); Mean Corpuscular Volume 106.6 fL (80.0-98.0); NRBC Abs Auto 0.000 X10*3/uL (0.0-0.012); NRBC Pct Auto 0.0 /100WBC (0.0-0.2); Platelet Count 90 X10*3/uL (160-400); Red Blood Count 3.03 X10*6/uL (4.20-5.50); White Blood Count 3.2 X10*3/uL (4.8-10.8)
[2025-03-24 06:44] LABS: Anion Gap 12 (12-20); Blood Urea Nitrogen 9 mg/dL (9-16); Calcium 8.9 mg/dL (8.4-10.2); Carbon Dioxide 23 mmol/L (22-29); Chloride 110 mmol/L (96-108); Creatinine Clr Calc Pharmacy 107.1; Estimated Glomerular Filt Rate > 60; Magnesium 1.6 mg/dL (1.6-2.6); Potassium 3.3 mmol/L (3.3-5.1); Sodium 142 mmol/L (135-145)
--- NOTE | 2025-03-24 11:35 | MHC.CM.PN ---
EMR reviewed, PT evaluated pt and recommended STR. This CM met with pt to discuss, per pt she doesn't want to go to STR, she would prefer to go home with new VNA services, no agency preference noted.
[2025-03-24] MEDS: Lactated Ringers 1,000 ML 125 ML IVCONT ×2 (12:14→20:18)
--- NOTE | 2025-03-24 16:03 | HO.PM.IMPN ---
Subjective Subjective Date of Service: 03/24/25 Interval History: No further bleeding overnight. Hemoglobin stable Review of Systems Denies chest pain Denies shortness of breath Denies nausea vomiting diarrhea Denies fever chills Physical Exam Vital Signs: Vital Signs: Last Vital Signs Temp 97.4 F 03/24/25 15:53 Pulse 78 03/24/25 15:53 Resp 17 03/24/25 15:53 BP 144/64 H 03/24/25 15:53 Pulse Ox 94 03/24/25 15:53 O2 Del Method Room Air 03/24/25 15:53 BMI result Body Mass Index 21.5 Const: Other: Awake alert oriented x3 in no acute distress Resp: Other: Clear to auscultation bilaterally no rales rhonchi or wheezes Cardio: Other: No S4; positive S1-S2; no S3 murmurs rubs or gallops GI: Other: Soft nontender nondistended normoactive bowel sounds Objective Data Active Medications Acetaminophen (Acetaminophen 325 Mg Tablet) 650 mg PO Q6H PRN PRN Reason: Pain, Mild 1-3,fever,headache Calcium Carbonate (Calcium Carbonate 750 Mg Tab.Chew) 750 mg PO Q4H PRN PRN Reason: Heartburn Carvedilol (Carvedilol 3.125 Mg Tablet) 3.125 mg PO BID [facility]; Protocol Last Admin: 03/24/25 08:54 Dose: Not Given Documented By: ROCKY Non-Admin Reason: Decreased Blood Pressure Folic Acid (Folic Acid 1 Mg Tablet) 1 mg PO DAILY [facility] Last Admin: 03/24/25 08:52 Dose: 1 mg Documented By: ROCKY Gabapentin (Gabapentin 300 Mg Capsule) 300 mg PO TID PRN PRN Reason: neuropathy Last Admin: 03/23/25 20:11 Dose: 300 mg Documented By: ANALIA Lactated Ringer's (Lr) 1,000 mls @ 125 mls/hr IVCONT .Q8H [facility] Last Admin: 03/24/25 12:14 Dose: 125 mls/hr Documented By: ROCKY Magnesium Hydroxide (Milk Of Magnesia 30 Ml Oral.Susp) 30 ml PO DAILY PRN PRN Reason: Constipation Melatonin (Melatonin 3 Mg Tablet) 6 mg PO BEDTIME PRN PRN Reason: Insomnia Multivitamins/Vitamin C (Multivitamin Tablet) 1 tab PO DAILY [facility] Last Admin: 03/24/25 08:52 Dose: 1 tab Documented By: ROCKY Naltrexone HCl (Naltrexone Hcl 50 Mg Tablet) 25 mg PO DAILY [facility] Last Admin: 03/24/25 12:15 Dose: 25 mg Documented By: ROCKY Omeprazole (Omeprazole 20 Mg Capsule.Dr) 20 mg PO BID@0630,1630 [facility] Last Admin: 03/24/25 06:23 Dose: 20 mg Documented By: ANALIA Ondansetron HCl (Ondansetron Hcl 4 Mg/2 Ml Vial) 4 mg IVPUSH Q4H PRN PRN Reason: Nausea and Vomiting Pharmacy Consult (Consult Rx Etoh Phenob Im/Po) 1 each MISCELLANE ONCE PRN; Protocol PRN Reason: Consult order Phenobarbital (Phenobarbital 15 Mg Tablet) 15 mg PO BID [facility]; Protocol Stop: 03/24/25 21:01 Last Admin: 03/24/25 08:56 Dose: Not Given Documented By: ROCKY Non-Admin Reason: Decreased Blood Pressure Phenobarbital (Phenobarbital 15 Mg Tablet) 15 mg PO DAILY [facility]; Protocol Stop: 03/26/25 09:01 Sodium Chloride (0.9 % Sodium Chloride Flush 3 Ml Syringe) 3 ml IVFLUSH QSHIFT [facility] Last Admin: 03/24/25 08:56 Dose: Not Given Documented By: ROCKY Non-Admin Reason: Previously Administered Sucralfate (Sucralfate Oral Suspension 1 Gm/10 Ml Oral.Susp) 1 gm PO QIDACHS [facility] Last Admin: 03/24/25 12:14 Dose: 1 gm Documented By: ROCKY Thiamine HCl (Thiamine Hcl 100 Mg Tablet) 100 mg PO DAILY [facility] Last Admin: 03/24/25 08:52 Dose: 100 mg Documented By: ROCKY Labs 03/24/25 06:03 03/24/25 06:03 Labs: Laboratory Results - last 24 hr 03/24/25 06:03 MCV 106.6 H MCH 37.0 H MCHC 34.7 RDW 13.2 Plt Count 90 L MPV 10.3 Absolute Nucleated RBC 0.000 Nucleated RBC % (auto) 0.0 Anion Gap 12 Estim Creat Clear Calc 107.1 Estimated GFR > 60 Random Glucose 128 H Calcium 8.9 Magnesium 1.6 Microbiology Microbiology Results: Microbiology 03/21/25 13:22 Fungal Identification - Preliminary Brushing - [place] No growth to date. Assessment and Plan (1) Alcohol use disorder, severe, dependence: Status: Acute Plan 64yo F with AUD, HFpEF, GERD, HTN, and neuropathy presenting with haematemesis 1.UGIB - EGD 03/21 ... Results noted severe esophagitis on EGD involving the entire esophagus with ulcerations, white exudate and denuded mucosa - biopsies + CMV PCR + HSV cultures pending, needs GI follow-up, changed IV to PO PPI and will add sucralfate -follow CBC in a.m. 2.EtOH hepatitis - MDF 10, no steroids indicated, sobriety counseled 3. Alcohol use disorder - Addiction Medicine consulted - started on phenobarbital taper to prevent withdrawal; continue multivitamin 4.Hypomag/hypokalemia -repleted -follow renals and divalent 5.HFpEF -stable and well compensated -continue current therapies 6.HTN -acceptable control on current therapies -adjust as indicated VTE ppx - SCDs dispo - STR per PT eval but re-assess tomorrow In my clinical judgment, the patient requires continued inpatient hospitalization for the following reasons: phenobarbital taper for high-risk EtOH withdrawal, hypoMg Quality Stroke Does the patient have a stroke diagnosis?: No VTE Prior VTE?: No VTE Risk Level:: Medical - moderate - high VTE Device Contraindication: N/A - Device Ordered VTE Drug Contraindication: Treatment Not Indicated
[2025-03-25 04:00] VITALS: BP 120/56; PULSE 76; RESP 17; TEMP 35.9; O2SAT 98
[2025-03-25] MEDS: Sucralfate Oral Suspension 1 GM/10 ML ORAL.SUSP PO ×2 (06:39→11:43)
[2025-03-25 07:18] LABS: MANUAL DIFF FLAG NO
[2025-03-25 07:33] LABS: Hematocrit 35.6 % (37.0-47.0); Hemoglobin 12.4 g/dl (12.0-16.0); Imm Gran Abs Auto 0.01 X10*3/uL (0.00-0.03); Imm Gran Pct Auto 0.3 % (0.0-0.4); Lymphocytes Absolute Auto 0.6 X10*3/uL (1.2-4.9); Mean Corpuscular HGB Conc 34.8 g/dl (31.0-35.0); Mean Corpuscular Hemoglobin 37.1 pg (27.0-33.0); Mean Corpuscular Volume 106.6 fL (80.0-98.0); NRBC Abs Auto 0.000 X10*3/uL (0.0-0.012); NRBC Pct Auto 0.0 /100WBC (0.0-0.2); Platelet Count 104 X10*3/uL (160-400); Red Blood Count 3.34 X10*6/uL (4.20-5.50); White Blood Count 3.4 X10*3/uL (4.8-10.8)
[2025-03-25 07:37] LABS: Alanine Aminotransferase 83 U/L (0-31); Albumin Level 3.8 g/dL (3.5-5.0); Alkaline Phosphatase 112 U/L (39-117); Anion Gap 14 (12-20); Aspartate Amino Transferase 153 U/L (5-31); Blood Urea Nitrogen 6 mg/dL (9-16); Calcium 8.9 mg/dL (8.4-10.2); Carbon Dioxide 22 mmol/L (22-29); Chloride 108 mmol/L (96-108); Creatinine Clr Calc Pharmacy 102.9; Estimated Glomerular Filt Rate > 60; Potassium 3.6 mmol/L (3.3-5.1); Sodium 140 mmol/L (135-145); Total Protein 6.7 g/dL (6.5-8.0)
[2025-03-25 07:43] VITALS: BP 117/55; PULSE 82; RESP 20; TEMP 37; O2SAT 97
[2025-03-25] MEDS: 0.9 % Sodium Chloride Flush 3 ML SYRINGE IVFLUSH (08:49)
--- NOTE | 2025-03-25 10:42 | MHC.CM.PN ---
Second IMM given 03/25. Pt is medically cleared for discharge home with new [facility] services today, pts friend Rashad will transport her home.
[2025-03-25 11:31] VITALS: BP 107/56; PULSE 80; RESP 20; TEMP 36.2; O2SAT 96
--- NOTE | 2025-03-25 13:10 | P.DS_ITS ---
DS: Providers Provider Date of Service: 03/25/25 Date of admission: 03/20/25 16:26 Date of discharge: 03/25/25 Primary care physician: Le Haddad DO Consults: 03/20/25 15:55 Addiction Medicine Provider Routine Consulting Provider: Addiction Covering Reason for consultation: etoh Consult to Gastroenterology Routine Consulting Provider: [facility] Reason for consultation: vomiting blood, etoh DS: Diagnosis Discharge Diagnosis (1) Alcohol use disorder, severe, dependence: Status: Acute DS: Summary Hospital Course Hospital Course: 64yo F with AUD who drinks 1 bottle of white wine daily but denies history of withdrawal [though EHR indicates otherwise], HFpEF, GERD, HTN, and neuropathy presenting after throwing up bloody material twice daily at home and once in the ED. No haematochezia nor melena. No abdominal pain. No known cirrhosis and last EGD in 2014 showed esophagitis but no varices. Denies any NSAID or steroid use. Last drink just prior to admission. Initially says she is not on any home medication, but then says she takes gabapentin as needed for neuropathy. No chest pain, dyspnea, lightheadedness, or dizziness. In ED, Hb 14.1, INR 1.1, EtOH 152, Tbili 4.4, AST 384, ALT 106. Guaiac negative. She was started on phenobarbital and given IV pantoprazole, magnesium, and thiamine. Hospital course Admitted to telemetry without further hematemesis noted. Seen in consultation by Gastroenterology and on 03/21/2025 underwent an upper endoscopy. Findings included esophagitis hiatal hernia gastritis and multiple gastric polyps. Recommendations were continue PPI and add sucralfate. Patient's hemoglobin remained stable without further vomiting; she will be discharged home on the aforementioned meds to follow up with GI and PCP as outpatient. She is strongly advised to avoid alcohol Time Attestation Discharge Coordination Time (in mins): 35 Quality: Safe Use of Opioids Does Pt have an Active Cancer Diagnosis on the Problem List?: No Quality: Stroke Does the patient have a stroke diagnosis?: No Physical Exam Vital Signs: Vital Signs: Last Vital Signs Temp 97.1 F 03/25/25 11:31 Pulse 80 03/25/25 11:31 Resp 20 03/25/25 11:31 BP 107/56 L 03/25/25 11:31 Pulse Ox 96 03/25/25 11:31 O2 Del Method Room Air 03/25/25 11:31 BMI result Body Mass Index 21.5 Const: Other: Awake alert oriented x3 in no acute distress Resp: Other: Clear to auscultation bilaterally no rales rhonchi or wheezes Cardio: Other: No S4; positive S1-S2; no S3 murmurs rubs or gallops GI: Other: Soft nontender nondistended normoactive bowel sounds DS: Data Data Completed and Pending Completed studies during hospitalization [Text1]: Procedures Detoxification Services for Substance Abuse Treatment (01/05/24) Labs on day of discharge: Laboratory Results - last 24 hr 03/21/25 03/25/25 13:20 07:00 WBC 3.4 L RBC 3.34 L Hgb 12.4 Hct 35.6 L MCV 106.6 H MCH 37.1 H MCHC 34.8 RDW 13.6 Plt Count 104 L MPV 10.0 Immature Gran % (Auto) 0.3 Neut % (Auto) 68.1 Lymph % (Auto) 18.2 L [place] % (Auto) 11.3 H Eos % (Auto) 1.5 Baso % (Auto) 0.6 Lymph # (Auto) 0.6 L [place] # (Auto) 0.4 Eos # (Auto) 0.1 Baso # (Auto) 0.0 Abs Immat Gran (auto) 0.01 Absolute Neuts (auto) 2.3 Absolute Nucleated RBC 0.000 Nucleated RBC % (auto) 0.0 Sodium 140 Potassium 3.6 Chloride 108 Carbon Dioxide 22 Anion Gap 14 BUN 6 L Creatinine 0.51 Estim Creat Clear Calc 102.9 Estimated GFR > 60 Fasting Glucose 132 H Calcium 8.9 Total Bilirubin 2.8 H AST 153 H ALT 83 H Alkaline Phosphatase 112 Total Protein 6.7 Albumin 3.8 Herpes Simplex Culture SEE NOTE Preliminary micro results at discharge 03/21/25 13:22 Fungal Identification - Preliminary Brushing - [place] No growth to date. Discharge Plan Discharge Anticipated Discharge Date/Time: 03/25/25 13:05 Patient Disposition: Home Health Service Discharge Diagnosis: Hematemesis Referrals: [facility] [Provider Group] - 1 Day Referral Note: The day you are discharged either walk-in or call. Walk in hours are Mon-Thur 8-430pm & Fri 10:30-4pm [facility] [Outside] - 1 Week Le Haddad DO [Primary Care Provider, Internal Medicine] - 1 Week Discharge Medications: New sucralfate 100 mg/mL Suspension 1 g PO QIDACHS 30 Days Qty: 1000 0RF Continued carvedilol 3.125 mg tablet 3.125 mg PO BID lansoprazole 30 mg capsule,delayed release(DR/EC) 30 mg PO DAILY@0630 gabapentin 300 mg capsule 300 mg PO TID PRN (Reason: Pain) Discharge Orders: Discharge Order (Routine); Ordered 03/25/25 Ordered By: Tk Olvera Diet: Advance to usual diet Activity on Discharge: As tolerated Stand Alone Forms: Patient Portal Discharge page Print Language: Salvadorean Care Plan Goals: Continue all medicines as taken prior to hospitalization. Health Concerns: Continue your lansoprazole; await 1 hour after taking before starting sulfate Plan of Treatment: Follow up with the PCP next available Assessment: See discharge summary
--- NOTE | 2025-03-25 13:26 | W.MHC.F2F ---
Service Date Service Date: 03/25/25 Encounter Date of encounter: 03/25/25 Encounter: Acute hospitalization Reasons for Services Signs and symptoms assessed: Assess for hematemesis and monitor medication management Reason for jail: medication management and teach disease management Reason for physical therapy: home safety and mobility, therapeutic exercises and gait/transfer training Homebound: Leaving the home is medically contraindicated at this time without the asist of a device and/or another person due th the listed conditions above and below. Reason homebound: unsteady gait / fall risk and unable to drive Certification: Based on the above findings, I certify that this patient is confined to the home and needs intermittent jail care, physical therapy and/or speech therapy, or continues to need occupational therapy. The patient is under my care, and I have initiated the establishment of the plan of care. The patient will be followed by a physician who will periodically review the plan of care. Time Spent With Patient Time: Total time managing care of this patient today ____ minutes.
== END 2025-03-25 15:19 | disposition home health service (06) | DRG 381 ==
LOC: HO.ED 15:29 → HO.EDOVER 16:31 → HO.IMC 19:17
PROVIDERS: Family Medicine; Admitting Provider Internal Medicine Gastroenterology; Emergency Provider Emergency Medicine; PCP Family Medicine; Visit Provider Hospitalist
PROC: 0DJ08ZZ Inspection of Upper Intestinal Tract, Via Natural or Artificial Opening Endoscopic (ICD-10-PCS; CPT 43235; principal; 2025-03-21 12:50)
DX: K22.11 Ulcer of esophagus with bleeding (principal); D61.818 Other pancytopenia; I50.32 Chronic diastolic (congestive) heart failure; K29.71 Gastritis, unspecified, with bleeding; K31.7 Polyp of stomach and duodenum; K44.9 Diaphragmatic hernia without obstruction or gangrene; E83.42 Hypomagnesemia; E87.6 Hypokalemia; F10.20 Alcohol dependence, uncomplicated; G62.9 Polyneuropathy, unspecified; Y90.6 Blood alcohol level of 120-199 mg/100 ml; K70.10 Alcoholic hepatitis without ascites; I11.0 Hypertensive heart disease with heart failure; Z71.41 Alcohol abuse counseling and surveillance of alcoholic; Z79.899 Other long term (current) drug therapy
CPT/HCPCS: 36415; 76705; 80048; 80053; 80076; 80307; 82140; 82272; 82607; 82746; 83615; 83690; 83735; 83880; 84443; 84484; 85025; 85027; 85610; 86704; 86706; 86803; 86850; 86900; 86901; 87102; 87255; 87340; 87496; 88305; 88342; 93005; 97162; 99285; J2003; J2470; J2560; J2704; J3360; J3411; J3475; J7120; S9485

== ENCOUNTER → 2025-03-20 13:29 | Outpatient (BNV) | payer MEDICARE, MEDICAID, SELFPAY | PROVIDERS: Admitting Provider Family Medicine; Emergency Provider Emergency Medicine; Visit Provider Internal Medicine | DX: R94.31 Abnormal electrocardiogram [ECG] [EKG] (principal); F19.939 Other psychoactive substance use, unspecified with withdrawal, unspecified | CPT/HCPCS: 93010 ==

== ENCOUNTER → 2025-03-20 15:32 | Outpatient (BNV) | payer MEDICARE, MEDICAID, SELFPAY | PROVIDERS: Admitting Provider Family Medicine; Emergency Provider Emergency Medicine; Visit Provider Radiology Diagnostic Radiology | DX: K80.20 Calculus of gallbladder without cholecystitis without obstruction (principal); K76.0 Fatty (change of) liver, not elsewhere classified | CPT/HCPCS: 76705 ==

== ENCOUNTER → 2025-03-20 16:26 | Outpatient (BNV) | payer MEDICARE, MEDICAID, SELFPAY | PROVIDERS: Admitting Provider Family Medicine; Emergency Provider Emergency Medicine; PCP Family Medicine; Visit Provider Internal Medicine Gastroenterology | DX: K70.10 Alcoholic hepatitis without ascites (principal); K92.0 Hematemesis | CPT/HCPCS: 99232 ==

== ENCOUNTER → 2025-03-20 16:26 | Outpatient (BNV) | payer MEDICARE, MEDICAID, SELFPAY | PROVIDERS: Admitting Provider Internal Medicine Gastroenterology; Emergency Provider Emergency Medicine; PCP Family Medicine; Visit Provider Nurse Practitioner Psychiatric/Mental Health | DX: F10.20 Alcohol dependence, uncomplicated (principal) | CPT/HCPCS: 99222 ==

== ENCOUNTER → 2025-03-20 16:26 | Outpatient (BNV) | payer MEDICARE, MEDICAID, SELFPAY | PROVIDERS: Admitting Provider Family Medicine; Emergency Provider Emergency Medicine; Visit Provider Family Medicine | DX: F10.20 Alcohol dependence, uncomplicated (principal) | CPT/HCPCS: 99223; 99232; 99239; G0180 ==

== ENCOUNTER → 2025-03-27 16:13 | Outpatient (BNVA) | payer MEDICARE, MEDICAID, SELFPAY | PROVIDERS: PCP Family Medicine | DX: F10.20 Alcohol dependence, uncomplicated (principal) | CPT/HCPCS: 99202 ==

== ENCOUNTER 2025-03-27 16:20 | Outpatient (AMB) | payer MEDICARE, MEDICAID, SELFPAY ==
--- OUTSIDE RECORDS SUMMARY | 2025-03-27 16:15 | XMS_ITS | Clinical Summary ---
Author Organization [facility] Facility Address [address] [address] Care Team Providers Care Dollyman Name Role Phone Le Haddad DO Primary [...] age to complete this topic Care Teams Dollyman Relationship Specialty Start Date End Date Le Haddad DO PCP - General 09/14/20
--- OUTSIDE RECORDS SUMMARY | 2025-03-27 16:15 | XMS_ITS | Data Portability ---
Author Organization [facility], [facility] Medical [facility] Address [address] [place] [phone] Care Team Providers Care Tooling Supervisor Name Role Phone [facility] Referring Provider HIM [facility] OTHER Assessment No assessment recorded. Plan of Treatment Reminders Order Date Submit Date Provider Last Modified By Organization Details Last Modified Time Details Appointments None recorded. Lab BMP, serum or plasma [address], [phone] 09:43:40 Referral None recorded. Procedures None recorded. Surgeries None recorded. Imaging electrocard iogram 2022 023 [facility], [address] [place] [address], [phone] 3 05:00:47 Medication Orders None recorded. Patient TargetsNo targets recorded. Patient InstructionsNo instructions recorded. Reason for Referral None Reported. Results Created Date Observation Date Name Description Value Unit Range Abnormal Flag Note LastModifiedBy Organization Detail LastModifiedTime 03/02/20 23 03/03/2023 elect valentino leivagr am No observ ation record ed. [email or web address] [address], [phone] 03/03/2023 09:41:28 Result Notes None recorded. Medical [...] % 90 /min 147/85 mm[Hg] Not Available Pict 4 16:43:22 Date Recorded Oxygen saturation Oxygen saturation in Arterial blood by Pulse oximetry Heart rate Respiratory rate Body temperature Systolic And Diastolic Provider Name and Address Organization Details Last Updated DateTime 3 96 % 96 % 103 /min 20 /min 97.8 [degF] 140/100 mm[Hg] Not Available Pict 3 20:33:31 Social History None recorded. Functional Status None recorded. Mental Status None recorded. Family History Nothing Reported. Medical History No medical history recorded. Gynecological HistoryNo gynecological history recorded. Obstetrics History GPAL:G 0 P 0 0 0 0 Past Encounters Encounter ID Performer Location Encounter Start Date Encounter Closed Date Diagnosis/Indication Diagnosis SNOMED-CT Code Diagnosis ICD10 Code Diagnosis Note [id number] Moises Vizcaino MD [facility] [address] [place] [phone] 03/02/2023 18:12:52 03/02/2023 22:31:16 Alcohol intoxication 68941350 F10.929 Patient does not wish to go to ED for evaluation at this time. Unable to get IV placed for fluids, but BMP is stable. Low BUN and Inspector Tool in setting of malnutriti on and chronic alcohol use. Encouraged to seek alcohol detox treatment at ED. Patient precontemp lative. Discussed hydration in setting of alcohol use. Mild dehydration [id number] 119 108 E86.0 Normotensi ve to hypertensi ve. Unable to get IV placed [place] fluids[place] [id number] Michi Ratliff MD [facility] [address] [place] [phone] 11/28/2023 16:43:20 11/28/2023 19:18:58 Alcohol intoxication 54651418 F10.929 This 63-year-ol d female called [facility] [...] Name 03/03/2024 1 [facility] - DOS ON OR AFTER 2022 - DUAL ELIGIBLE - [facility] OPTIONS AND ONE CARE (MEDICARE REPLACEMENT/ADV ANTAGE - HMO) Nubia Bell [id number] Nubia Bell Notes Date Note Type Note Provider Name and Address Organization Details Recorded Time 03/02/2023 text/html ROS as noted in the HPI HPI: pt is alcoholic drinks only 1/2 [...] .................... .................... .................... .................... .................... .................... . Histotechnician Note From Cary Ashby: Community Histotechnician Michelle Ashby CCA1 dispatched to a yellow for a 62 yof C/O dehydration. Pt reported to [facility] that she had been drinking wine. [...] was receiving care from a psych provider. [facility] consulted; 4X IV attempt w/ no success, BMP and EKG in [facility]. EKG and BMP results were discussed w/ [...] . Disposition: Fulfilled Moises Vizcaino MD [address] [facility],[address], [place], [phone], [employer] 03/02/2023 21:04:12 11/28/2023 text/html ROS as noted in the [facility] Nurse Triage Notes (Yenifer Parsons): Reason [...] Zara LENZ Verified name//address Michi Ratliff MD [address] [place] [address],[address], [place], [phone], [employer] 11/28/2023 16:49:27 OBGyn Episode No OBEpisode recorded.
--- OUTSIDE RECORDS SUMMARY | 2025-03-27 16:15 | XMS_ITS | Encounter Summary ---
Author Organization [employer] Address [address] [facility] [address] [place] [address] Care Team Providers Care Washateria Attendant Name Role Phone Ella Haddadnifer Primary Care Provider [phone] Encounter Details Date Type Department Care Team (Late st Contact Info) Description 12/12/2023 Orders Only [facility] [address] [place], [place] [phone] ProviderKumar MD Social History Tobacco Use Types [...] as of this encounter Plan of Treatment Upcoming Encounters Date Type Department Care Team (Late st Contact Info) Description 04/15/2025 9:15 AM EDT Office Visit [facility] [address] [place] [address] Le Haddad DO [address] [place] [address] documented as of this encounter Procedures Procedure [...] documented as of this encounter Care Teams Washateria Attendant Relationship Specialty Start Date End Date Le Haddad DO [address] [place] [address] PCP - General Family Medicine 05/18/15 documented as of this encounter
[2025-03-27 16:30] VITALS: BP 100/60; PULSE 58; O2SAT 97; BMI 23.4
--- NOTE | 2025-03-27 16:30 | MHC.OFFVIS ---
Vital Signs 03/27/25 16:30 Height 5 ft 3 in Weight 132 lb BMI 23.4 BP 100/60 Pulse 58 Pulse Oximetry (%) 97 Intake Visit Reasons: MAT Intake Allergies No Known Allergies (No Known Allergies*) Allergy (Verified 03/27/25 16:31) Medication List - Last Reconciled 03/27/25 by Jessica Valera NP-C carvedilol 3.125 mg PO BID gabapentin 300 mg PO TID PRN lansoprazole 30 mg PO DAILY@0630 sucralfate 1 g (10 mL) PO QIDACHS 30 days HPI Comments Details: The patient is a 64-year-old female who presents for MAT intake r/t alcohol use disorder. Reports a history of drinking a bottle of wine daily and was referred by inpatient due to a recent hospitalization for hemoptysis. During inpatient stay she was discharged with 3 days of naltrexone tablets 50 mg, to be taken daily. Patient does acknowledge the medication decreased the cravings and quantity of alcohol consumption. The patient questioned if she can receive the Vivitrol injection today t/w explained there is a process including evaluating, ordering medication and waiting on insurance approval. Due to the 5 times elevated liver enzymes further follow-up will be required before prescribing Vivitrol. PFSH Medical History Myocardial infarct Alcohol use disorder Multinodular thyroid Anxiety CHF (congestive heart failure) ETOH abuse Surgical History History of esophagogastroduodenoscopy (EGD) Hx of colonoscopy Hx of hysterectomy Family History Mother Cancer Father No problems noted. Social History Household Members: Friend(s) Household Members Other:: roommate Housing: House Do you presently have visiting nurse or other home services: No Alcohol intake: current Alcohol intake frequency: 3 or more drinks per day Alcohol type: wine Patient Tobacco Use Status: Never used Tobacco Second Hand Smoke Exposure: Yes Substance Use Type: Crack/Cocaine Advance Directives Date on File: 07/22/23 service: No Current occupational status: disabled Review of Systems Const All systems reviewed & are unremarkable except as noted in HPI and below Physical Exam Vital Signs: Last Vital Signs Pulse 58 03/27/25 16:30 BP 100/60 03/27/25 16:30 Pulse Ox 97 03/27/25 16:30 BMI result Body Mass Index 23.4 Const General: cooperative Nutritional Appearance: thin Orientation/consciousness: patient oriented x3 HEENT Head: Yes normal to inspection Ears: hearing grossly normal bilaterally General nose exam: Normal external nose present Face and sinus: Yes normal facial exam Neuro General: patient oriented x3 Psych Appearance: grossly normal Mental Status: mental status grossly normal Speech and movement: Normal speech and movement present Affect: Animated affect present Attitude: cooperative Thought process: Normal thought process present Thought content: Normal thought content present Insight: Fair insight present (Psych) Judgement: Fair judgement present (Psych) Assessment & Plan Assessment & Plan (1) Alcohol use disorder, severe, dependence: Code(s): F10.20 - Alcohol dependence, uncomplicated Category: Medical Plan The plan of care is to continue on naltrexone tablets 50 mg daily for 14 days, follow up before the end of the 14 days and have labs drawn to evaluate liver enzymes. Start on thiamine 100 mg and folic acid 1 mg daily. Orders: Orders Liver Panel Today F10.20 - Alcohol dependence, uncomplicated Medications: New folic acid 1 mg PO DAILY 30 tabs 0RF 30 days naltrexone Take one tablet by mouth daily 50 mg PO DAILY 14 tabs 0RF thiamine mononitrate (vit B1) One tablet by mouth daily 100 mg PO DAILY 30 tabs 0RF 30 days Patient Instructions: - Continue on naltrexone tablets 50 mg daily, start on thiamine 100 mg and folic acid 1 mg daily. - Follow up before 14 days and have labs drawn for liver panel. - Reduce alcohol consumption. - Continue with cross country coach. - Call with questions, concerns, or to report side effects. Coding Level of Care Code New Pt Level 4 (38742) Diagnoses Alcohol use disorder, severe, dependence F10.20 Time Spent (min) 30 Comment Chart prep and education. MAT Intake Nursing Intake Reason for visit: AUD MAT intake Are you currently using?: Yes What are you taking?: Alcohol When was your last use?: Today How much?: 1/4 bottle of wine What is your source of income?: Disability What is your current relationship status?: single Current PCP: Le Haddad DO Referral Source: Inpatient Care HMD Discharge S4 03/26/25 Details: Hematemesis Substance Abuse History Substance Abuse History (includes route, frequency and quantity): Heroin (unknowingly), Fentanyl (unknowingly), Buprenorphine/naloxone, Methadone, Oxycodone product, Cocaine and Alcohol Social History Domestic Violence concerns: Past History Children: none Do you have a support system?: lives with ex-boyfriend Current mode of transportation?: ex-boyfriend Where are you currently residing?: Apartment LMP: hysterectomy at 49 IV Drug Use Have you ever shared needles?: No Have you ever belonged to a needle exchange program?: No Do you buy needles at a pharmacy?: No Have you ever overdosed?: Yes Number of lifetime overdoses: 1 Have you ever been hospitalized for an overdose?: Yes Was Naloxone administered?: Yes Recovery History Have you had any periods of recovery?: Yes What is your longest time in recovery?: 9 months When was the last time you were in recovery?: 2023 Have you ever had inpatient treatment for your substance abuse disorder?: No Have you been in an inpatient detoxification program?: Yes Have you been in an inpatient Rehab/Correction house?: No Have you been in an outpatient Methadone Maintenance program?: No Have you been in an outpatient Suboxone Maintenance program?: No Have you been in an AA/NA support program?: Yes Have you had a Recovery Support Dance Costume Designer?: Yes Details: 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 If so, who?: no diagnosis: anxiety depression History of other addictive behavior: no History of inpatient psychiatric hospitalization? If so, how many? Most Recent? Where?: no History of self harming thoughts?: No History of homicidal or suicidal intentions?: No Medical Conditions Endocarditis?: No Skin Infection: No Seizure related to withdrawal or overdose: No Head or brain injury: No Hepatitis A (if yes, have you been treated?): No Hepatitis B (if yes, have you been treated?): No Hepatitis C (if yes, have you been treated?): No HIV (if yes, have you been treated?): No TB (if yes, have you been treated?): No Other: Yes (CHF) Do you have any chronic pain conditions?: Neuropathy to hands, feet and mouth Legal History History of incarceration: No Currently on parole or probation: No Court mandated programs: No Pending court cases: No DCF involvement: No
== END 2025-03-27 18:24 | disposition home or self-care (01) ==
PROVIDERS: PCP Family Medicine; Visit Provider Clinical Nurse Specialist Psychiatric/Mental Health
DX: F10.20 Alcohol dependence, uncomplicated (principal)
CPT/HCPCS: 99204

== ENCOUNTER 2025-04-21 12:14 | Emergency (ER) | payer MEDICARE, MEDICAID, SELFPAY ==
--- NOTE | ~2025-04-21 | CT_ITS ---
EXAMINATION: CT CERVICAL SPINE WITHOUT CONTRAST CLINICAL INFORMATION: Fall, neck pain. COMPARISON: 01/05/2024. TECHNIQUE: Spiral CT imaging of the cervical spine performed in axial plane without contrast. Multiplanar reformatted images were constructed from the axial data set. This CT examination was performed using dose optimization techniques as appropriate, variously including the following: *Automated exposure control *Adjustment of mA and/or kV according to patient size (this includes techniques or standardized protocols for targeted exams where dose is matched to indication/reason for exam; i.e. extremities or head) *Use of iterative reconstruction technique FINDINGS: CORONAL ALIGNMENT: -Trace levoconvex scoliosis. SAGITTAL ALIGNMENT: -Mild straightening of the normal lordosis. -No evidence of traumatic subluxation. C1-C2 AND CRANIOCERVICAL JUNCTION: -Intact and normally aligned. There are mild degenerative changes in the anterior atlantoaxial joint. VERTEBRAL BODIES AND FACETS: -No fracture, compression deformity, traumatic subluxation, or suspicious bone lesion. -Normal facet alignment bilaterally. Mild multilevel hypertrophic degenerative facet change. DISCS: -Moderate disc degeneration present C4-5, C5-6, and C6-7 with ventral disc osteophytic spurs. CENTRAL CANAL: -No evidence of high-grade central canal narrowing or large disc herniation allowing for modality limitations. PREVERTEBRAL AND PARAVERTEBRAL SOFT TISSUES: -There is no prevertebral or paravertebral soft tissue swelling, edema, or abnormal fluid collection. -There are calcified nodules within the thyroid gland which is mildly enlarged. -There are retropharyngeal courses of both carotid arteries. LUNG APICES: -No pneumothorax. Mild apical scarring bilaterally. Severe degenerative changes of the TM joints incidentally noted. CT/CT cervical spine wo IV con IMPRESSION: 1. No CT evidence of acute cervical spine fracture or injury. 2. Moderate cervical spondylosis. Electronically signed by: Mainor Tucker MD 04/21/2025 01:32 PM EDT
--- NOTE | ~2025-04-21 | CT_ITS ---
EXAMINATION: CT HEAD WITHOUT IV CONTRAST HISTORY: fall head injury. TECHNIQUE: Unenhanced helical CT of the head was performed per standard departmental protocol. Coronal and sagittal reformats of the head were also evaluated. One or more of the following techniques was used for dose reduction: Automated exposure control, adjustment of the mA and/or kV according to patient size, use of iterative reconstruction technique. DLP: 550 mGy-cm COMPARISON: Comparison is made with the prior examination dated 01/05/2024. FINDINGS: BRAIN: There is mild prominence of the ventricular system and cortical sulci, consistent with atrophy. Scattered periventricular and subcortical white matter hypodensities are noted which are nonspecific, but often seen in the setting of small vessel ischemic disease. Again seen is an old lacunar infarcts of the anterior limb of the right internal capsule. There is no mass effect or midline shift. No intra- or extra-axial fluid collections are identified. SINUSES: The visualized paranasal sinuses are clear. The mastoid air cells and middle ear cavities are well pneumatized. ORBITS: The visualized orbits are unremarkable. BONES/SOFT TISSUES: The extracranial soft tissues are unremarkable. The calvarium is intact. No suspicious lytic or sclerotic lesions. CT/CT head/brain wo IV con IMPRESSION: No acute intracranial abnormality. Electronically signed by: Saul Martin MD 04/21/2025 01:31 PM EDT
[2025-04-21 12:37] VITALS: BP 117/60; BP 118/70; PULSE 83; PULSE 95; RESP 18; TEMP 36.7; O2SAT 92; O2SAT 97; BMI 20.6
--- NOTE | 2025-04-21 12:40 | ECG_ITS ---
Test Reason : FALL Blood Pressure : */* mmHG Vent. Rate : 81 BPM Atrial Rate : 81 BPM P-R Int : 162 ms QRS Dur : 72 ms QT Int : 414 ms P-R-T Axes : 16 -6 59 degrees QTcB Int : 480 ms Normal sinus rhythm Septal infarct (cited on or before 20-Mar-2025) Abnormal ECG When compared with ECG of 20-Mar-2025 13:35, Nonspecific T wave abnormality no longer evident in Lateral leads Referred By: Gem Armijo Electronically Signed By: LASHELL KELLY MD
--- NOTE | 2025-04-21 12:52 | ED_ITS ---
HPI - Fall General Chief Complaint: Fall Stated Complaint: UNWIT FALL OOB,HIT HEAD,1BOTTLE/WINE TODAY PER EMS Time Seen by Provider: 04/21/25 12:23 Source: patient, EMS and old records reviewed Mode of arrival: EMS Limitations: no limitations (she is intoxicated but able to converse) History of Present Illness ED Provider: VENICE HPI Narrative: 64 yo female with PMH of severe ETOH use disorder no desire to stop drinking, falls, UTI, cardiomyopathy who has been drinking and states she fell off the bed she was sleeping on it. She thinks she was going to the bathroom but she admits it is not clear. She doesn't know when and not sure how long she was on the floor for. She admits to ETOH use. She notes she only got a skin tear. She has no SI/HI. She had to call 911 as her stepson couldn't lift her off the floor. complaint: fall Onset (ago): unknown Fall from: out of bed Fall witnessed: no Place fall occurred: home Loss of consciousness: none Prolonged down time: unclear Symptoms prior to fall: none Context: alcohol use Location of injury: other (abrasion to L knee) Location of injury - extremities: left: knee Severity: mild Associated symptoms (after fall): denies Related Data Home Medications ?Medication ?Instructions ?Recorded ?Confirmed carvedilol 3.125 mg tablet 3.125 mg PO BID 03/20/25 gabapentin 300 mg capsule 300 mg PO TID PRN Pain 03/2003/27/25 lansoprazole 30 mg capsule,delayed 30 mg PO DAILY@0630 03/20/25 03/27/25 release Previous Rx's ?Medication ?Instructions ?Recorded sucralfate 100 mg/mL oral 1 g (10 mL) PO QIDACHS 30 da ys 03/25/25 suspension #1,000 mL folic acid 1 mg tablet 1 mg PO DAILY 30 days #30 ta bs 03/27/25 naltrexone 50 mg tablet 50 mg PO DAILY #14 tabs 03/05 12/27 thiamine mononitrate (vit B1) 100 100 mg PO DAILY 30 d ays #30 tabs 03/27/25 mg tablet Allergies Allergy/AdvReac Type Severity Reaction Status Date / Time No Known Allergies (No Known Allergy Verified 04/21/25 12:39 Allergies*) Review of Systems 2 Review of Systems: Constitutional : No Fever, No Chills ENT/Mouth : No Ear Pain, No Hoarseness, No sore throat Eyes: No Eye Pain, No Swelling, No Redness, No Foreign Body Cardiovascular : No Chest Pain, No SOB Respiratory : No Cough, No Dyspnea Gastrointestinal : No Nausea, No Vomiting, No Diarrhea, No abdominal Pain Genitourinary : No Dysuria, No Hematuria Musculoskeletal : no joint pain, No Myalgias, No Joint Swelling Skin : No Skin lacerations, No rash, pos abrasion Neuro : No Weakness, No Numbness, No Loss of Consciousness, No Dizziness, No Headache Psych : No Anxiety/Panic, No Depression Heme/Lymph: no easy bruising, no Lymphadenopathy Endocrine : No Polyuria, No Polydipsia All other systems reviewed and are negative [facility] Past Medical History Attestation statement: The following information was validated with the patient. Source: old records reviewed Medical History Alcohol use disorder, severe, dependence Alcohol use disorder Alcoholic steatohepatitis Myocardial infarct Alcohol use disorder Multinodular thyroid Anxiety CHF (congestive heart failure) ETOH abuse Surgical History History of esophagogastroduodenoscopy (EGD) Hx of colonoscopy Hx of hysterectomy Family History Family History Mother Cancer Father No problems noted. Social History Social History Household Members: Friend(s) Household Members Other:: roommate Housing: House Do you presently have visiting nurse or other home services: No Alcohol intake: current Alcohol intake frequency: 3 or more drinks per day Alcohol type: wine Patient Tobacco Use Status: Never used Tobacco Second Hand Smoke Exposure: Yes Substance Use Type: Crack/Cocaine Advance Directives: Yes Advance Directives on File: Yes Advance Directives Date on File: 07/22/23 Do you have a plan to hurt others: No Plan service: No Current occupational status: disabled Physical Exam 2 Vital Signs: Vital Signs: Last Vital Signs Temp 98.3 F 04/21/25 15:45 Pulse 81 04/21/25 15:45 Resp 20 04/21/25 15:45 BP 132/63 04/21/25 15:45 Pulse Ox 96 04/21/25 15:45 O2 Del Method Room Air 04/21/25 15:45 BMI result Body Mass Index 20.6 Appearance: Alert. Oriented X3. No acute distress. Eyes: Pupils equal, round and reactive to light. ENT: Pharynx normal. Neck: Normal inspection. Neck supple. c collar in place CVS: Normal heart rate and rhythm. Pulses normal. Respiratory: No respiratory distress. Breath sounds normal. Abdomen: Soft and nontender. Skin: Skin warm and dry. Normal skin color. Extremities: No lower extremity edema. L knee very superficial abrasion but normal ROM of the knee Neuro: Oriented X 3. No motor deficit. No sensory deficit. CN2-12 intact Medications Administered Discontinued Medications Generic Name Dose Route Start Last Admin Trade Name Freq PRN Reason Stop Dose Admin Magnesium Sulfate 2 gm in 50 mls @ 25 mls/hr 04/21/25 12:39 04/21/25 15:37 Magnesium Sulfate/H2o IV 04/21/25 14:38 25 mls/hr ONCE ONE Administration Thiamine HCl 200 mg/ Sodium 102 mls @ 204 mls/hr 04/21/25 12:39 04/21/25 16:07 Chloride IV 04/21/25 13:08 Infused ONCE ONE Infusion Medical Decision Making Medical Decision Making [facility] Narrative: 64 yo female with PMH of severe ETOH use disorder no desire to stop drinking, falls, UTI, cardiomyopathy here with c/o ETOH use and then fall but unclear what happened will obtain labs, CT scans of head/cspine cannot clear due to trauma, IVF, magnesium, thiamine. Will DC if work up negative and feels better - she has no CP/SOB to suggest ACS or VTE. Differential Diagnosis Differential Diagnoses: The differential diagnosis associated with the presentation includes ETOH use disorder, lyte abnormality, falls, FTT Admission/Observation Consideration of admission/observation: Escalation of care including admission/observation considered once clinically improved stable for DC steady gait calling for ride home stable for DC Lab Data [facility] Lab Attestation statement: I reviewed the patient's lab results. 04/21/25 13:32 04/21/25 13:32 Labs: Lab Results 04/21/25 Range/Units 13:32 WBC 4.8 (4.8-10.8) X10*3/uL RBC 3.53 L (4.20-5.50) X10*6/uL Hgb 12.7 (12.0-16.0) g/dl Hct 35.8 L (37.0-47.0) % MCV 101.4 H (80.0-98.0) fL MCH 36.0 H (27.0-33.0) pg MCHC 35.5 H (31.0-35.0) g/dl RDW 14.0 (11.0-16.0) % Plt Count 97 L (160-400) X10*3/uL MPV 9.7 (9.4-12.3) fL Immature Gran % (Auto) 0.4 (0.0-0.4) % Neut % (Auto) 51.1 (45-73) % Lymph % (Auto) 40.7 H (20-40) % [place] % (Auto) 6.4 (2-11) % Eos % (Auto) 0.6 (0-4) % Baso % (Auto) 0.8 (0-2) % Lymph # (Auto) 2.0 (1.2-4.9) X10*3/uL [place] # (Auto) 0.3 (0.1-1.2) X10*3/uL Eos # (Auto) 0.0 (0.0-0.4) X10*3/uL Baso # (Auto) 0.0 (0.0-0.2) X10*3/uL Abs Immat Gran (auto) 0.02 (0.00-0.03) X10*3/uL Absolute Neuts (auto) 2.5 (2.0-8.3) x10*3/uL Absolute Nucleated RBC 0.000 (0.0-0.012) X10*3/uL Nucleated RBC % (auto) 0.0 (0.0-0.2) /100WBC Sodium 141 (135-145) mmol/L Potassium 3.7 (3.3-5.1) mmol/L Chloride 105 (96-108) mmol/L Carbon Dioxide 20 L (22-29) mmol/L Anion Gap 20 (12-20) BUN 5 L (9-16) mg/dL Creatinine 0.50 (0.5-1.4) mg/dL Estim Creat Clear Calc 96.3 Estimated GFR > 60 Random Glucose 92 (60-115) mg/dL Calcium 8.6 (8.4-10.2) mg/dL Magnesium 1.5 L (1.6-2.6) mg/dL Total Bilirubin 1.6 H (0.0-1.0) mg/dL Direct Bilirubin 1.0 H (0.0-0.5) mg/dL AST 97 H (5-31) U/L ALT 24 (0-31) U/L Alkaline Phosphatase 183 H (39-117) U/L Total Creatine Kinase 44 (26-140) U/L Total Protein 7.1 (6.5-8.0) g/dL Albumin 4.0 (3.5-5.0) g/dL Ethyl Alcohol 342 H* mg/dL Independent Interpretation I performed an independent interpretation of an: EKG and CT Scan (no trauma) Interpretation: Rate: 81 Rhythm: NSR [place]: left Normal P waves. Normal MED. Normal QRS complex. ST T wave : inverted t waves V1 and V2, no BRYNN qTC: 480 prior studies: no acute ischemia The study has been interpreted contemporaneously by me. . Radiology Impression Discussion of test interpretation with radiology: I have reviewed the radiologist's reading. Independent Historian Clinical information obtained from an independent historian. History obtained from or confirmed by: EMS External Record Review External record reviewed: Inpatient record and Outpatient record Discharge Plan Discharge Clinical Impression: Alcohol use disorder, Hypomagnesemia Patient Disposition: Home, Self-Care Instructions: Hypomagnesemia (ED), Alcohol Use Disorder (ED) Additional Instructions: labs at baseline given IV vitamins and IV magnesium CT head and cervAlcohol use disorder You were seen in the Emergency Department today for treatment of alcohol use disorder.? You may have been given medications to help with your withdrawal symptoms.? Please do not drink alcohol with them. This is very dangerous and can cause respiratory depression or other adverse reactions depending on the medication. If you would like to cut down or stop your alcohol use please consider calling our outpatient Addiction Treatment office:? [facility] (M-F 9a-5p) [address] [place] [address] [address] You have also been given a list of treatment providers in the area that can assist as well.? If you experience seizures, vomiting blood, black stools, falls, severe headache, chest pain, fevers, trouble breathing, hallucinations or any other concerns you need to call 911 or seek immediate care. Please stay hydrated. ical spine are negative return for any worsening symptoms or concern Prescriptions: No Action carvedilol 3.125 mg tablet 3.125 mg PO BID lansoprazole 30 mg capsule,delayed release(DR/EC) 30 mg PO DAILY@0630 gabapentin 300 mg capsule 300 mg PO TID PRN (Reason: Pain) sucralfate 100 mg/mL Suspension 1 g PO QIDACHS 30 Days Qty: 1000 0RF naltrexone 50 mg tablet 50 mg PO DAILY Qty: 14 0RF Rx Instructions: Take one tablet by mouth daily folic acid 1 mg tablet 1 mg PO DAILY 30 Days Qty: 30 0RF thiamine mononitrate (vit B1) 100 mg tablet 100 mg PO DAILY 30 Days Qty: 30 0RF Rx Instructions: One tablet by mouth daily Print Language: Telugu
[2025-04-21 13:38] LABS: MANUAL DIFF FLAG NO
[2025-04-21 13:39] LABS: Hematocrit 35.8 % (37.0-47.0); Hemoglobin 12.7 g/dl (12.0-16.0); Imm Gran Abs Auto 0.02 X10*3/uL (0.00-0.03); Imm Gran Pct Auto 0.4 % (0.0-0.4); Lymphocytes Absolute Auto 2.0 X10*3/uL (1.2-4.9); Mean Corpuscular HGB Conc 35.5 g/dl (31.0-35.0); Mean Corpuscular Hemoglobin 36.0 pg (27.0-33.0); Mean Corpuscular Volume 101.4 fL (80.0-98.0); NRBC Abs Auto 0.000 X10*3/uL (0.0-0.012); NRBC Pct Auto 0.0 /100WBC (0.0-0.2); Red Blood Count 3.53 X10*6/uL (4.20-5.50); White Blood Count 4.8 X10*3/uL (4.8-10.8)
[2025-04-21 13:40] LABS: Platelet Count 97 X10*3/uL (160-400)
[2025-04-21 13:56] LABS: Alanine Aminotransferase 24 U/L (0-31); Albumin Level 4.0 g/dL (3.5-5.0); Alkaline Phosphatase 183 U/L (39-117); Anion Gap 20 (12-20); Aspartate Amino Transferase 97 U/L (5-31); Blood Urea Nitrogen 5 mg/dL (9-16); Calcium 8.6 mg/dL (8.4-10.2); Carbon Dioxide 20 mmol/L (22-29); Chloride 105 mmol/L (96-108); Creatinine Clr Calc Pharmacy 96.3; Estimated Glomerular Filt Rate > 60; Magnesium 1.5 mg/dL (1.6-2.6); Potassium 3.7 mmol/L (3.3-5.1); Sodium 141 mmol/L (135-145); Total Protein 7.1 g/dL (6.5-8.0)
--- OUTSIDE RECORDS SUMMARY | 2025-04-21 14:47 | XMS_ITS | Clinical Summary ---
Author Organization [facility] Address [address] [address] Care Team Providers Care Plastics Bench Mechanic Name Role Phone Le Haddad DO Primary [...] age to complete this topic Care Teams Plastics Bench Mechanic Relationship Specialty Start Date End Date Le Haddad DO PCP - General 09/14/20
--- OUTSIDE RECORDS SUMMARY | 2025-04-21 14:47 | XMS_ITS | Encounter Summary ---
Author Organization [facility] [employer] Address [address] [place] [address] Care Team Providers Care Cashier Parking Lot Name Role Phone Ella Haddadnifer Primary Care Provider [phone] Encounter Details Date Type Department Care Team (Late st Contact Info) Description 12/12/2023 Orders Only [facility] [address], [place] [id number] ProviderKumar MD Social History Tobacco Use Types [...] Care Team (Late st Contact Info) Description 05/13/2025 9:15 AM EDT Office Visit [facility] [address] [place] [address] Le Haddad DO [address] [place] [address] documented as of this encounter Procedures Procedure Name Priority Date/Time Associated Diagnosis Comments HM COLONOSCOPY Routine 10/10/2013 11:05 AM EST documented in this encounter Results * Hm Colonoscopy (10/10/2013 11:05 AM EST) Historical Provider HEALTH MAINTENANCE Final Result documented in this encounter Visit Diagnoses Not on filedocumented in this encounter Additional Health Concerns Assessment Noted Time PHQ-9 Depression Total Score: 6 02/08/20 23 9:59 AM EDT documented as of this encounter Care Teams Cashier Parking Lot Relationship Specialty Start Date End Date Le Haddad DO [address] [place] [address] PCP - General Family Medicine 05/18/15 [facility] 03/26/25 documented as of this encounter
[2025-04-21] MEDS: Thiamine HCL 200 MG in 0.9 % Sodium Chloride 100 ML 204 MG IV (15:37)
[2025-04-21] MEDS: Magnesium Sulfate/H2O 2 GM/50 ML PIGGYBACK IV (15:37)
[2025-04-21 15:45] VITALS: BP 132/63; PULSE 81; RESP 20; TEMP 36.8; O2SAT 96
[2025-04-21 16:53] VITALS: BP 132/63; PULSE 81; RESP 20; TEMP 36.8; O2SAT 96
== END 2025-04-21 16:53 | disposition home or self-care (01) ==
PROVIDERS: Emergency Provider Emergency Medicine; PCP Family Medicine
DX: E83.42 Hypomagnesemia (principal); M54.2 Cervicalgia; F10.90 Alcohol use, unspecified, uncomplicated; Y90.8 Blood alcohol level of 240 mg/100 ml or more; Z91.81 History of falling
CPT/HCPCS: 36415; 70450; 72125; 80048; 80076; 80307; 82550; 83735; 85025; 93005; 96365; 96375; 99284; J3411; J3475

== ENCOUNTER → 2025-04-21 12:40 | Outpatient (BNV) | payer MEDICARE, MEDICAID, SELFPAY | PROVIDERS: Emergency Provider Emergency Medicine; PCP Family Medicine; Visit Provider Radiology Diagnostic Radiology | DX: M54.2 Cervicalgia (principal); Z03.89 Encounter for observation for other suspected diseases and conditions ruled out; W19.XXXA Unspecified fall, initial encounter | CPT/HCPCS: 70450; 72125 ==

== ENCOUNTER → 2025-04-21 12:40 | Outpatient (BNV) | payer MEDICARE, MEDICAID, SELFPAY | PROVIDERS: Emergency Provider Emergency Medicine; PCP Family Medicine; Visit Provider Internal Medicine Cardiovascular Disease | DX: I25.2 Old myocardial infarction (principal) | CPT/HCPCS: 93010 ==

== ENCOUNTER 2025-06-05 15:02 | Outpatient (REF) | payer MEDICARE, MEDICAID, SELFPAY ==
--- OUTSIDE RECORDS SUMMARY | 2025-06-05 18:38 | XMS_ITS | Data Portability ---
Author Organization [facility], Main Office Address [address] [facility], [address] [place] [address] Care Team Providers Care Tax Revenue Officer Name Role Phone PHILLIP PINZON - 2ND FLOOR OTHER STEPHANIE HOLCOMB Primary Care Provider Assessment Encounter Date Assessment Date Assessment LastModified by Organization Details LastModified Time 02/06/2024 02/06/2024 45 minutes spent on coordination of discharge. [email or web address] Not available 02/06/2024 14:13:31 Plan of Treatment [...] Name and Address Organization Details Recorded Time Hypomagnbailey morenoa 488296463 Active 2023 Carri Gabriel NP [address] [facility], [address], [place], [address], [facility] 4 09:00:49 Bacteremi a 4445277 Active 2023 Carri Gabriel NP [address] [facility], [address], [place], [address], [facility] 4 09:01:03 Gastroeso phageal reflux disease 920824308 Active 2023 Carri Gabriel NP [address] [facility], [address], [place], [address], [facility] 4 09:01:21 Adult failure to thrive syndrome 169299849 Active 2023 Carri Gabriel NP [address] [facility], [address], [place], [address], [facility] 4 09:01:32 Asthenia 62642571 Active 2023 Carri Gabriel NP [address] [facility], [address], [place], [address], [facility] 4 09:01:39 Mixed anxiety and depressiv e disorder 236050801 Active 2023 Carri Gabriel NP [address] [facility], [address], [place], [address], [facility] 4 09:01:55 Seasonal allergy 611716115 Active 2023 Carri Gabriel NP [address] [facility], [address], [place], [address], [facility] 4 09:02:06 Substance abuse 95321939 Active 2023 Carri Gabriel NP [address] [facility], [address], [place], [address], [facility] 4 09:03:33 Pyeloneph ritis 13644009 Active 2023 Carri Gabriel NP [address] [facility], [address], [place], [address], [facility] 4 09:04:17 History of cocaine abuse 379499344829 106 Completed 202301/11/2024 Carri Gabriel NP [address] [facility], [address], [place], [address], [facility] 4 09:08:03 Vitamin deficienc y 59027058 Active 2023 Carri Gabriel NP [address] [facility], [address], [place], [address], [facility] 4 09:15:37 Thyroid nodule 917439036 Completed 202301/11/2024 Carri Gabriel NP [address] [facility], [address], [place], [address], [facility] 4 10:05:42 Heart failure 59036632 Active 2023 Carri Gabriel NP [address] [facility], [address], [place], [address], [facility] 4 10:05:52 Hypertens rona disorder 45148515 Active 2023 Carri Gabriel NP [address] [facility], [address], [place], [address], [facility] 4 10:07:05 Steatotic liver disease 190180140 Completed 202301/11/2024 Avis Covington MD [address] [facility], [address], [place], [address], [facility] 4 22:04:40 Recurrent falls 770104801 Active 2023 Carri Gabriel NP [address] [facility], [address], [place], [address], [facility] 4 10:22:04 Fracture of multiple ribs 7750455 Active 2023 Carri Gabriel NP [address] [facility], [address], [place], [address], [facility] 4 10:26:33 Harmful pattern of use of alcohol 61180682 Active 2023 Avis Covington MD [address] [facility], [address], [place], [address], [facility] 4 19:45:27 History of cerebrova scular accident 378529266 Active 2023 Avis Covington MD [address] [facility], [address], [place], [address], [facility] 4 19:56:24 Neck pain 43833813 Active 2023 Avis Covington MD [address] [facility], [address], [place], [address], [facility] 4 21:47:58 Steatotic liver disease 226408859 Active 2023 Avis Covington MD [address] [facility], [address], [place], [address], [facility] 4 22:04:40 Jose escobar 320971956 Active 2023 Avis Covington MD [address] [facility], [address], [place], [address], [facility] 4 22:04:43 Problem Notes None recorded. Medical Equipment None Reported. Allergies No known drug allergies Vitals Date Recorded Body weight Heart rate Respiratory rate Body temperature Oxygen saturation Oxygen saturation in Arterial blood by Pulse oximetry Systolic And Diastolic Provider Name and Address Organization Details Last Updated DateTime 4 10056.4 2 g 84 /min 18 /min 97.7 [degF] 97 % 97 % 112/68 mm[Hg] Carri Gabriel NP [address] [facility], [address], [place], [address], [facility] 4 09:22:13 Date Recorded Body height Body mass index (BMI) Body weight Heart rate Respiratory rate Body temperature Oxygen saturation Oxygen saturation in Arterial blood by Pulse oximetry Systolic And Diastolic Provider Name and Address Organization Details Last Updated DateTime 4 157.48 cm 23.6 kg/m2 90580.4 2 g 90 /min 18 /min 97.1 [degF] 96 % 96 % 137/83 mm[Hg] Avis Covington MD [address] [facility], [address], [place], [address], [facility] 4 19:03:29 Date Recorded Body height Heart rate Respiratory rate Body temperature Oxygen saturation Oxygen saturation in Arterial blood by Pulse oximetry Systolic And Diastolic Provider Name and Address Organization Details Last Updated DateTime 4 157.48 cm 90 /min 18 /min 97.6 [degF] 97 % 97 % 128/76 mm[Hg] TALIA HOUSTON NP [address] [facility], [address], [place], [address], [facility] 4 15:19:27 Date Recorded Body height Body weight Body mass index (BMI) Heart rate Respiratory rate Body temperature Oxygen saturation Oxygen saturation in Arterial blood by Pulse oximetry Systolic And Diastolic Provider Name and Address Organization Details Last Updated DateTime 4 157.48 cm 68478.4 5 g 22.7 kg/m2 91 /min 16 /min 97.7 [degF] 97 % 97 % 106/70 mm[Hg] Carri Gabriel NP [address] [facility], [address], [place], [address], [facility] 4 10:00:20 Date Recorded Body height Heart rate Respiratory rate Body temperature Oxygen saturation Oxygen saturation in Arterial blood by Pulse oximetry Systolic And Diastolic Provider Name and Address Organization Details Last Updated DateTime 4 157.48 cm 100 /min 18 /min 97.8 [degF] 94 % 94 % 131/79 mm[Hg] TALIA HOUSTON NP [address] [facility], [address], [place], [address], [facility] 4 13:52:59 Social History Question Answer Notes LastModified by Organizat ion Details LastModified Time Tobacco Smoking Status Never Smoker Carri aGbriel NP [address] [facility], [address], [place], [address], [facility] 01/11/2024 09:49:55 Do You Have An [...] Do 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 Yes Information not available 01/16/2024 What Was [...] X 25 Yrs Information not available 01/16/2024 Has Tobacco Cessation Counseling Been Provided? No Information not available 01/11/2024 Have You Used IV Drugs? No Information not available 01/11/2024 Do You Have Any Dietary Restrictions? No Information not available 01/11/2024 How Many Days In The Past Year Have You Consumed 4 Or More Drinks? 365 Information not available 01/11/2024 Sex: Female Functional Status Question Answer Note LastModified by Organizat ion Details LastModified Time How many times per week do you consume alcohol? 5-7 times per week 1/2 bottle of wine daily lately had been a whole bottle until a month or 2 ago Information not available 01/16/2024 Do you use any illicit or recreational drugs? Yes Information not available 01/11/2024 Do you or have you ever used any other forms of tobacco or nicotine? No Information not available 01/11/2024 What is your level of alcohol consumption? Heavy Information not available 01/11/2024 Mental Status Question Answer Note LastModified by Organization D etails LastModified Time Do you feel stressed (tense, restless, nervous, or anxious, or unable to sleep at night)? [id number] Information not available 01/11/2024 Family History Nothing Reported Notes:Mother cancer Father decreased no problems Medical History No medical history recorded. Gynecological HistoryNo gynecological history recorded. Obstetrics History GPAL:G 0 P 0 0 0 0 Immunizations Vaccine Type Date Status Note Provider Matt e and Address Organization Details Recorded Time Hep B, unspecified formulation 8 completed Mimi Wynn [facility] 01/12/2024 12:31:23 Hep B, unspecified formulation 8 lizeth verdugo [facility] 01/12/2024 12:31:30 Hep B, unspecified formulation 2 completed Mimi Wynn [facility], [facility] 01/12/2024 12:31:37 Tdap 4 completed Mimi Wynn [facility] 01/12/2024 12:31:51 Td(adult) unspecified formulation 6 completed Mimi Wynn [facility] 01/12/2024 12:32:06 Pneumococcal conjugate PCV20, polysaccharide [id number] conjugate, adjuvant, PF 4 completed Mimi Wynn [facility] 01/12/2024 12:35:15 pneumococcal polysaccharide PPV23 5 completed Mimi Wynn [facility] 01/12/2024 12:35:31 influenza, unspecified formulation 2 completed Mimi Wynn [facility] 01/12/2024 12:35:47 influenza, unspecified formulation 3 completed Mimi Wynn [facility] 01/12/2024 12:35:55 Hep A, unspecified formulation 8 completed Mimi Wynn [facility] 01/12/2024 12:36:17 Hep A, unspecified formulation 2 completed Mimi Wynn [facility] 01/12/2024 12:36:24 SARS-COV-2 (COVID-19) vaccine, UNSPECIFIED 1 completed Mimi Wynn [facility] 01/12/2024 12:36:41 SARS-COV-2 (COVID-19) vaccine, UNSPECIFIED 1 completed Mimi Wynn [facility] 01/12/2024 12:36:53 SARS-COV-2 (COVID-19) vaccine, UNSPECIFIED 2 completed Mmii Wynn [facility] 01/12/2024 12:37:05 SARS-COV-2 (COVID-19) vaccine, UNSPECIFIED 3 completed Mimi Wynn [facility] 01/12/2024 12:37:21 SARS-COV-2 (COVID-19) vaccine, UNSPECIFIED 4 completed Mimi verdugo [place] [facility] 01/12/2024 12:37:31 Past Encounters Encounter ID Performer Location Encounter Start Date Encounter Closed Date Diagnosis/Indication Diagnosis SNOMED-CT Code Diagnosis ICD10 Code Diagnosis IMO Codes Diagnosis Note [id number] Carri Gabriel NP [address] [place] [address] 01/11/2024 08:25:19 01/16/2024 08:36:09 Pyelonephritis 60475641 N12 hosp noted ecoli in blood and urine cultures tx with iv abx and transition ed to po cefuroxime 250 mg po bid x 10 more days heremonito rcbc and bmp weekly Bacteremia 6830001 R78.8 1 noted ecoli in blood and urine cultures tx with iv abx and transition ed to po cefuroxime 250 mg po bid x 10 more days heremonito rcbc and bmp weekly Asthenia 63132210 R53.1 PT/OT to eval and treatmonit or Adult fail ure to thrive syndrome 702334563 R62.7 pt with failure to thrive and weakness for approx 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 t nutrition tech for better nutritiono n ensure tidmonitor Hypomagnesemia 209002516 E83.42 magnesium oxide 400 mg po dailymonit or Gastroesop hageal reflux disease 992189355 K21.9 lansoprazo le 30 mg po dailymonit or Mixed anxi ety and depressive disorder 458514417 F41.8 hydroxyzin e 50 mg cap po bid prn anxietyven lafaxine 150 mg cap po dailygabap entin 100 mg po tid (was decreased in hosp)monit or Seasonal allergy 3888238 04 J30.2 cetirizine 10 mg po dailymonit or Harmful pa ttern of use of alcohol 29429685 F10.10 with cocaine and etoh abusetx with phenobarb protocol, folic acid and thiamine inpthad visual hallucinat ions in hosp now resolvedmo nitor for s/s of etoh withdrawal continue supportive care and encourage abstinence monitor Substance abuse 29643969 F19.10 with cocaine and etoh abusetx with phenobarb protocol, folic acid and thiamine inpthad visual hallucinat ions in hosp now resolvedmo nitor for s/s of etoh withdrawal continue supportive care and encourage abstinence monitor Vitamin deficiency 91838 002 E56.9 vitamin def unspecifie dcontvit d2 1250 mcg po q weekvit b12 1000 mcg po dailymonit or Heart failure 55053442 I 50.9 hx of heart failureunc lear why she was taken off metoprolol in hospmonito r hr and bp closely q shift here for need Hypertensive disorder 38 092315 I10 hx of heart failureunc lear why she was taken off metoprolol succ in hosp( was on 25 mg po qd)monitor hr and bp closely q shift here for need Steatotic liver disease 174560508 K76.0 noted steatoiss of liver with ETOH use hxmonitor lftsdc tylenol with elevated liver enzymesmon itor Thyroid nodule 861420564 E04.1 hx offu outpt as needed Recurrent falls 31140319 2 R29.6 pt has hx of furniture walking and fallsthera py to treat and eval for strength, balance, gait, mobility, safety awarenessw alker usesupport rona caremonito r Fracture o f multiple ribs 5681111 S22.41XS hx of 6th and 7th right rib fracturesp t reports no paincont incentive spirometer no brusing or deformity notedmonit or for sequelae [id number] [facility] [address] 01/16/2024 18:35:58 01/22/2024 09:48:54 Pyelonephritis 12806275 N10 Grew e. coli, same strain, from urine and blood.Cont inue cefuroxime 250 mg BID until 01/19 to complete 2 wk course of abxs.Monit or sxs and labs. Bacteremia 7045617 R78.8 1 As above. Asthenia 31339407 R53.1 Very deconditio [place].Needs PT/OT for strengthen ing, balance, gait training, safety and function.C ontinue fall precaution s.Monitor for safety.Wit h continued falling since here. Needs encouragem ent to use walker ALL THE TIME! Adult fail ure to thrive syndrome 660845340 R62.7 Likely due to EtOH abuse.Enco urage cessation and improved nutrition. Real Estate Developer consult. Hypomagnesemia 883506290 E83.42 Continue magnesium oxide 400 mg qdMonitor levels Gastroesop hageal reflux disease 770764593 K21.9 Continue lansoprazo le 30 mg qdMonitor GI sxs Mixed anxi ety and depressive disorder 096590502 F41.8 Gabapentin was decreased inpt due to concerns about oversedati on, pt is requesting return to previous dose.Will increase to 100 mg BID with 200 mg at bedtime.Co ntinue venlafaxin e 150 mg qd and hydroxyzin e 50 mg BID prn anxietyMon itor mood.Consu lt psych prn Harmful pa ttern of use of alcohol 82398781 F10.10 With hx of withdrawal , had some evidence inpt, txed with phenobarb protocol.W as txed with folic acid and thiamine inpt., but not continued. Will add thiamine 100 mg qd and Folic Acid 1 mg qd.Monitor CBC.Contin ue to encourage cessation. Seasonal allergy 2230260 04 J30.2 Continue cetirizine 10 mg qdMonitor sxs Substance abuse 61467231 F19.10 As above.Also hx of cocaine use.Encour age abstinence . Vitamin deficiency 18752 002 E56.8 Continue ergocalcif jo 50,000 IU weekly and vit b12 1000 mcg qdMonitor levels prn. Heart failure 50814698 I 50.32 In hx, but recent echo was WNL.Appear s euvolemic. Monitor resp. status, fluid status, wts and labs. Hypertensive disorder 38 903406 I10 BP good since here, off meds.Monit or need to restart metoprolol Steatotic liver disease 809825595 K70.30 Hx ofAbd is sl. distended, but imaging inpt did not show any ascites.Solomon d elevated LFTs.No APAP.F/U with GI as outpt. Recurrent falls 70658749 2 R29.6 As above. Fracture o f multiple ribs 0405937 S22.41XS Unclear how old these are.No pain.Monit or Multinodular goiter 2375 08470 E04.2 Seen by endocrine surgeon in 2019.His [...] as an outpt. History of cerebrovascular accident 366160882 Z86.73 Old right lacunar infarct seen on head CT.No sequelae.M onitor Neck pain 28346818 M54.2 Likely after fall last night.No point tenderness .Will start lidocaine patch 12 hrs/day.Mo nitor sxs. [id number] TALIA HOUSTON NP [address] [address] 01/25/2024 15:18:26 02/06/2024 13:24:09 Pyelonephritis 40756763 N10 Grew e. coli, same strain, from urine and blood.Comp leted cefuroxime 250 mg BID on 01/19 to complete 2 wk course of abxs.Clini luba improving. VS and labs stable so far.Monito r sxs and labs. Bacteremia 7385768 R78.8 1 As above. Asthenia 75171908 R53.1 Very deconditio [place].Needs PT/OT for strengthen ing, balance, gait training, safety and function.C ontinue fall precaution s.Monitor for safety.Wit h continued falling since here. Needs encouragem ent to use walker ALL THE TIME! Harmful pa ttern of use of alcohol 58261235 F10.10 With hx of withdrawal , had some evidence inpt, txed with phenobarb protocol.W as txed with folic acid and thiamine inpt., but not continued. Will add thiamine 100 mg qd and Folic Acid 1 mg qd.Monitor CBC.Contin ue to encourage cessation. Adult fail ure to thrive syndrome 866250424 R62.7 Likely due to EtOH abuse.Enco urage cessation and improved nutrition. Real Estate Developer consult. Hypomagnesemia 390558947 E83.42 Mg 1.6Increas ed magnesium oxide 400 mg to bidMonitor levels - repeat next week Gastroesop hageal reflux disease 642347773 K21.9 Continue lansoprazo le 30 mg qdMonitor GI sxs Mixed anxi ety and depressive disorder 777010435 F41.8 Gabapentin was decreased inpt due to concerns about oversedati on, pt is requesting return to previous dose.Incre ased to 100 mg BID with 200 mg at bedtime - batool. well so far.Contin ue venlafaxin e 150 mg qd and hydroxyzin e 50 mg BID prn anxietyMon itor mood.Consu lt psych prn Seasonal allergy 5932062 04 J30.2 Continue cetirizine 10 mg qdMonitor sxs Substance abuse 55119176 F19.10 As above.Also hx of cocaine use.Encour age abstinence . Vitamin deficiency 60750 002 E56.8 Continue ergocalcif jo 50,000 IU weekly and vit b12 1000 mcg qdMonitor levels prn. Heart failure 35149838 I 50.32 In hx, but recent echo was WNL.Appear s euvolemic. Monitor resp. status, fluid status, wts and labs. Hypertensive disorder 38 275157 I10 BP good since here, off meds.Monit or need to restart metoprolol Steatotic liver disease 401688470 K70.30 Hx ofAbd is sl. distended, but imaging inpt did not show any ascites.Solomon d elevated LFTs.No APAP.F/U with GI as outpt. Multinodular goiter 2375 87073 E04.2 Seen by endocrine surgeon in 2019.His [...] do this as an outpt. Recurrent falls 45375847 2 R29.6 As above. Fracture o f multiple ribs 3317506 S22.41XS Unclear how old these are.No pain.Monit or History of cerebrovascular accident 543225552 Z86.73 Old right lacunar infarct seen on head CT.No sequelae.M onitor Neck pain 01864304 M54.2 Likely after fall last night.No point tenderness .Will start lidocaine patch 12 hrs/day.Liban herndon sxs. [id number] Carri Gabriel NP [address] [address] 02/01/2024 09:57:59 02/06/2024 15:07:03 Pyelonephritis 55240352 N10 resolved, improvedGr ew e. coli, same strain, from urine and blood.Comp leted cefuroxime 250 mg BID on 01/19 to complete 2 wk course of abxs.Monit or sxs and labs. Bacteremia 3166181 R78.8 1 As above. Asthenia 03009359 R53.1 Very deconditio [place]. but improving with therapyNee ds PT/OT for strengthen ing, balance, gait training, safety and function.C ontinue fall precaution s.Monitor for safety.Wit h continued falling since here. Needs encouragem ent to use walker ALL THE TIME! Harmful pa ttern of use of alcohol 75405613 F10.10 With hx of withdrawal , had some evidence inpt, txed with phenobarb protocol.W as txed with folic acid and thiamine inpt., but not continued. contthiami ne 100 mg qdFolic Acid 1 mg qd.Continu e to encourage cessation. Adult fail ure to thrive syndrome 119176114 R62.7 Likely due to EtOH abuse. improvingE ncourage cessation and improved nutrition. Real Estate Developer consult for nutritiona l deficienci es Hypomagnesemia 018964469 E83.42 Mg 1.6 now 1.8 improving on supplement scontmagne sium oxide 400 mg to bidMonitor levels - repeat next week Gastroesop hageal reflux disease 706910509 K21.9 Continuela nsoprazole 30 mg qdMonitor GI sxs Mixed anxi ety and depressive disorder 844362312 F41.8 note: Gabapentin was decreased inpt due to concerns about oversedati onwhile at regalIncre ased to 100 mg BID with 200 mg at bedtime - batool. well so far. no s/s of sedationve nlafaxine 150 mg qdhydroxyz ine 50 mg BID prn anxietyMon itor mood.Consu lt psych prn Seasonal allergy 5862616 04 J30.2 Continuece tirizine 10 mg qdMonitor sxs Substance abuse 04632242 F19.10 As above.Also hx of cocaine use.Encour age abstinence . Vitamin deficiency 40369 002 E56.8 Continueer gocalcifer ol 50,000 IU weeklyvit b12 1000 mcg qdMonitor levels prn. Heart failure 32551792 I 50.32 In hx, but recent echo was WNL.Appear s euvolemic. Monitor resp. status, fluid status, wts and labs. Hypertensive disorder 38 951633 I10 BP good since here, off meds.Monit or need to restart metoprolol Steatotic liver disease 851112246 K70.30 seems improvedHx ofAbd is sl. distended, but imaging inpt did not show any ascites.Solomon d elevated LFTs.No APAP.F/U with GI as outpt. Multinodular goiter 2375 18131 E04.2 Seen by endocrine surgeon in 2019.His [...] do this as an outpt. Recurrent falls 61693633 2 R29.6 As above. Fracture o f multiple ribs 5598537 S22.41XS Unclear how old these are. no pain, bruising or deformitie sNo pain.Monit or History of cerebrovascular accident 867109801 Z86.73 Old right lacunar infarct seen on head CT.No sequelae.M onitor [id number] TALIA HOUSTON NP [facility] [address] [place] [address] 02/06/2024 13:37:38 02/12/2024 19:23:35 Pyelonephritis 44825252 N10 E. ColiComple benita cefuroxime 250 mg [...] to decline after dischargeM aintain fluids. Bacteremia 0136887 R78.8 1 As above. Asthenia 94378508 R53.1 Very deconditio [place]. but improving with therapyMee ting goals for d/c home tomorrow with support of family and services.C ontinue fall precaution s.Encourag e pt. to use her walker ALL THE TIME! Harmful pa ttern of use of alcohol 05317091 F10.10 With hx of withdrawal , had some evidence inpt, txed with phenobarb protocol.W as txed with folic acid and thiamine inpt., but not continued. contthiami ne 100 mg qdFolic Acid 1 mg qd.Continu e to encourage cessation. Adult fail ure to thrive syndrome 824840788 R62.7 Likely due to EtOH abuse. improvingE ncourage cessation and improved nutrition. Real Estate Developer consult for nutritiona l deficienci es Hypomagnesemia 316693022 E83.42 Mg 1.6 -> 1.8 -> 1.5continu e magnesium oxide 400 mg to bidMonitor levels as outpt. Gastroesop hageal reflux disease 776353829 K21.9 Continuela nsoprazole 30 mg qdMonitor GI sxs Mixed anxi ety and depressive disorder 799009423 F41.8 note: Gabapentin was decreased inpt due to concerns about oversedati onwhile at regalIncre ased to 100 mg BID with 200 mg at bedtime - batool. well so far. no s/s of sedationCo ntinue:aleksey lafaxine 150 mg qdhydroxyz ine 50 mg BID prn anxietyMon itor mood as outpt. Seasonal allergy 5974206 04 J30.2 Continuece tirizine 10 mg qdMonitor sxs Substance abuse 90437536 F19.10 As above.Also hx of cocaine use.Encour age abstinence . Vitamin deficiency 65214 002 E56.8 Continueer gocalcifer ol 50,000 IU weeklyvit b12 1000 mcg qdMonitor levels prn. Heart failure 04678615 I 50.32 In hx, but recent echo was WNL.Appear s euvolemic. Monitor resp. status, fluid status, wts and labs. Hypertensive disorder 38 248243 I10 BP good since here, off meds.Monit or need to restart metoprolol Steatotic liver disease 914465470 K70.30 seems improvedHx ofAbd is sl. distended, but imaging inpt did not show any ascites.Solomon d elevated LFTs.No APAP.F/U with GI as outpt. Multinodular goiter [id number] E04.2 Seen by endocrine surgeon in 2019.His [...] do this as an outpt. Recurrent falls [id number] R29.6 As above. Fracture o f multiple ribs [id number] S22.41XS Unclear how old these are. no pain, bruising or deformitie sNo pain.Monit or History of cerebrovascular accident [id number] Z86.73 Old right lacunar infarct seen on head CT.No sequelae.M onitor Health Concerns Section Related Observation LastModified by Organization Detai ls LastModified Time None Recorded Concern Status LastModified by Organization Details LastModified Time None Recorded Advance Directives Directive Y: Payers Insurance Date Sequence Insurance Name Policy Number Policy Lyn Covered Member ID Lyn Member ID Guarantor Name 03/21/2024 1 MEDICARE B-[place]: [facility] [employer] Nubia Bell [id number] Nubia Bell Notes Date Note Type Note Provider Name and Address Organization Details Recorded Time 4 text/html Pt is seen for an initial intake. Nubia is a 63 yo female with pmh HTN, GERD, HF, ETOH use with hx of withdrawal, anxiety, depression and multinodular thyroid fell out of bed and presented to [facility] ED on 01/05/24-01/10/24 found to have acute [...] or hallucinations. MOLST: full code 01/10/24 Carri Gabriel, GRETA [address] [facility], [address], [place], [address], [facility] 01/11/2024 10:30:51 4 text/html This is a 63 yo woman with EtOH use disorder who is here for rehab after an acute hospitalization for pyelonephritis.She presented to the [facility] ED on 01/04 with c/o weakness, fatigue, [...] reached for a water bottle on the tan, workup in the emergency room was consistent [...] plans to explore recovery coaching and possibly [employer] or other non step support groups.Hypomagnesemia repleted [...] depression and multinodular goiter. Avis Covington MD [address] [place] [address], [address], [place], [address], [facility] 01/16/2024 22:04:59 4 text/html Nubai is seen today for an acute visit. This is a 63 yo woman with EtOH use disorder who is here for rehab after an acute hospitalization for pyelonephritis.She presented to the [facility] ED on 01/04 after falling OOB and [...] Mg sl. low at 1.6. Upon exam, Nbuia is in bed, alert, pleasant, NAD. Feels ok, no specific complaints today.Case discussed with nsg., no concerns at this time. Her PMH includes HTN, GERD, CHF pEF, ETOH use disorder with hx of withdrawal, anxiety, depression and multinodular goiter. TALIA HOUSTON, GRETA [address] [place] [address], [address], [place], [address], [facility] 01/25/2024 15:39:44 4 text/html Pt is seen today for an acute visit. Her PMH includes HTN, GERD, CHF pEF, ETOH use disorder with hx of withdrawal, anxiety, depression and multinodular goiter. Nubia is a 63 yo female who presented to [facility] ED on 01/05/24-01/10/24 found to have acute pyelonephritis. It was felt she would benefit from rehab for generalized weakness, failure to thrive with poor nutrition, and therapy. While here at [facility] Nubia is making gains and doing [...] cefuroxime in hosp. Carri Gabriel NP [address] [facility], [address], [place], [address], [facility] 02/01/2024 11:47:10 4 text/html Nubia is seen today for discharge.She is planning on going home tomorrow with support of family and services. She is a 63 yo female admitted to [facility] from [facility] on 01/09 for continued care and rehab after a hospitalization related due pyelonephritis. She presented to [facility] 01/04 with weakness and falls. Also reported [...] plans to explore recovery coaching and possibly [employer] or other non step support groups.Hypomagnesemia repleted [...] and multinodular goiter. TALIA HOUSTON NP [address] [facility], [address], [place], [address], [facility] - [facility] 02/06/2024 14:26:41 OBGyn Episode No OBEpisode recorded.
== END 2025-06-05 15:03 | disposition home or self-care (01) ==
LOC: HO.LNP 15:02
PROVIDERS: PCP Family Medicine; Visit Provider Urology
DX: N39.0 Urinary tract infection, site not specified (principal); F10.90 Alcohol use, unspecified, uncomplicated; G62.9 Polyneuropathy, unspecified; R14.0 Abdominal distension (gaseous)
CPT/HCPCS: 51701; 51798; 87086; 87088; 87186; 99202

== ENCOUNTER 2025-06-05 15:02 | Outpatient (AMB) | payer MEDICARE, MEDICAID, SELFPAY ==
--- NOTE | 2025-06-05 15:17 | A.OFFVIS_ITS ---
Intake Visit Reasons: nocturia/urinary incontinence Intake Note: New patient presents today for initial visit for nocturia/urinary incontinence Urology Medication:None Blood Thinner:None Antibiotic Allergies:None PVR:479ml Allergies No Known Allergies (No Known Allergies*) Allergy (Verified 06/05/25 15:18) Medication List - Last Reconciled 06/05/25 by Jana Sparks MD carvedilol 3.125 mg PO BID folic acid 1 mg PO DAILY 30 days gabapentin 300 mg PO TID PRN lansoprazole 30 mg PO DAILY@0630 naltrexone 50 mg PO DAILY sucralfate 1 g (10 mL) PO QIDACHS 30 days thiamine mononitrate (vit B1) 100 mg PO DAILY 30 days HPI Comments Details: Nubia is here as a new patient evaluation for urinary incontinence. History of Present Illness The patient is a 64-year-old female presenting with urinary incontinence. The urinary incontinence has persisted for about a year, with the patient frequently urinating and waking up wet despite using pads. The numbness in her hands due to neuropathy complicates her ability to detect wetness. The neuropathy, which began in the feet and progressed to the knees and waist, has worsened over the past year. This condition is linked to her daily alcohol consumption, specifically a bottle of wine. The patient has not been adhering to any medication regimen as her prescriptions last year, and she has not consulted her primary care physician recently due to dissatisfaction with her care. She has difficulty leaving her home due to anxiety and reports a history of urinary tract infections, with her urine currently appearing brown and malodorous. The patient underwent a vaginal hysterectomy in 2010 and reports abdominal distension, potentially related to liver issues from alcohol use. Results - UA: Suspected infection, urine color dark linda malodorous Plan 1. Urinary Incontinence - Prescribed Gemtesa to manage urinary incontinence. - Advised bladder retraining by urinating every two hours. 2. Peripheral Neuropathy - Discussed the impact of alcohol use on neuropathy progression. 3. Alcohol Use Disorder - Advised on the effects of alcohol on liver health and neuropathy. Concerned Abd distension, may be related to ascites Abd US for further evaluation 4. Urinary Tract Infection - Prescribed antibiotics for suspected urinary tract infection. PFSH Medical History Alcohol use disorder, severe, dependence Alcohol use disorder Alcoholic steatohepatitis Myocardial infarct Alcohol use disorder Multinodular thyroid Anxiety CHF (congestive heart failure) ETOH abuse Surgical History History of esophagogastroduodenoscopy (EGD) Hx of colonoscopy Hx of hysterectomy Family History Mother Cancer Father No problems noted. Social History Household Members: Friend(s) Household Members Other:: roommate Housing: House Do you presently have visiting nurse or other home services: No Alcohol intake: current Alcohol intake frequency: 3 or more drinks per day Alcohol type: wine Patient Tobacco Use Status: Never used Tobacco Second Hand Smoke Exposure: Yes Substance Use Type: Crack/Cocaine Advance Directives Date on File: 07/22/23 service: No Current occupational status: disabled Review of Systems Const All systems reviewed & are unremarkable except as noted in HPI and below Reports no additional complaints Eyes Reports no additional complaints ENT Reports no additional complaints Card Reports no additional complaints Resp Reports no additional complaints GI Reports no additional complaints Reports as per HPI Musc Reports no additional complaints Skin/Breast Reports system reviewed and no additional complaints, except as documented Neuro Reports no additional complaints Psych Reports no additional complaints Endo Reports no additional complaints Ray/Lymph Reports no additional complaints Aller/Immun Reports no additional complaints Physical Exam Const General: cooperative, healthy appearing and no acute distress Orientation/consciousness: patient oriented x3 HEENT Head: Yes normal to inspection, Yes normocephalic and Yes atraumatic Eyes Conjunctivae: conjunctivae normal Neck Neck: Yes normal visual inspection and Yes trachea midline Chest Chest palpation & inspection: normal inspection of the chest Resp Effort & Inspection: normal respiratory effort GI Other: Abdomen is protuberant, distended Inspection: Yes normal to inspection Other: catheterized urine 30 mL External Female Exam: normal external appearance Speculum Exam - Vagina: vagina atrophic Neuro General: patient oriented x3 Psych Appearance: grossly normal Office Procedures Bladder/Catheter Procedure Details: Under sterile technique a 14 Colombian catheter was passed transurethrally, [] urine drained [id number] Bladder Catheter Procedure code (CPT) selection complete Post Void Residual Post Residual Void Post Void Residual (PVR): 479 [id number] Void Residual by ultrasound Assessment & Plan Assessment & Plan (1) Alcohol use disorder: Code(s): F10.90 - Alcohol use, unspecified, uncomplicated Category: Medical (2) Abdominal distension: Code(s): R14.0 - Abdominal distension (gaseous) Category: Medical (3) Urinary incontinence: Code(s): R32 - Unspecified urinary incontinence Category: Medical (4) UTI (urinary tract infection): Code(s): N39.0 - Urinary tract infection, site not specified Category: Medical Plan Plan 1. Urinary Incontinence - Prescribed Gemtesa to manage urinary incontinence. - Advised bladder retraining by urinating every two hours. 2. Peripheral Neuropathy - Discussed the impact of alcohol use on neuropathy progression. 3. Alcohol Use Disorder - Advised on the effects of alcohol on liver health and neuropathy. Concerned Abd distension, may be related to ascites Abd US for further evaluation 4. Urinary Tract Infection - Prescribed antibiotics for suspected urinary tract infection. Orders: Orders AMB Bladder/Catheter Procedure 06/05/25 N39.0 - Urinary tract infection, site not specified US abdomen complete 06/05/25 F10.90 - Alcohol use, unspecified, uncomplicated, R14.0 - Abdominal distension (gaseous) AMB Urinalysis Automated 06/05/25 N39.0 - Urinary tract infection, site not specified Urine Culture 06/05/25 N39.0 - Urinary tract infection, site not specified AMB Post Void Residual by ultrasound 06/05/25 N39.0 - Urinary tract infection, site not specified Medications: New vibegron (Gemtesa) 75 mg PO DAILY 30 tabs 3RF amoxicillin-pot clavulanate 875-125 mg 1 tab PO BID 14 tabs 0RF Patient Instructions: The patient had an opportunity to ask questions regarding treatment plan. The patient expressed understanding and agreement with the above treatment plan. The patient is aware they should contact our office by phone for worsening of their current condition or the appearance of new symptoms. Compliance is encouraged with any medications and followup testing that is ordered. It is a privilege to be allowed the opportunity to participate in the urologic care of your patient. If you have any questions or concerns regarding treatment for the above conditions please do not hesitate to contact me. The office telephone contact is [phone]. This note is constructed in part using voice recognition software. While every effort has been made to ensure accuracy audio visual secretary errors may have been included. Yours sincerely, Jana Sparks MD Scribe Plan - Not visible on output: Patient was informed and verbally consented to the use of an ambient scribe for clinic note documentation during this visit. Coding Level of Care Code New Pt Level 4 (70093) Diagnoses Alcohol use disorder F10.90 Abdominal distension R14.0 Urinary incontinence R32 UTI (urinary tract infection) N39.0 CPT Codes Post Residual Void - PVR CPT Code: 30271-Ftax Void Residual by ultrasound ([id number]) Bladder/Catheter Procedure - CPT: 93027-Ciktaq Bladder Catheter ([id number])
--- OUTSIDE RECORDS SUMMARY | 2025-06-05 16:28 | XMS_ITS | Encounter Summary ---
Author Organization [employer] Address [address] [facility] [address] [place] [address] Care Team Providers Care Scalloper Name Role Phone Le Haddad DO Primary Care Provider + [phone] Reason for Visit * Reason Comments Med Refill Encounter Details Date Type Department Care Team ([facility] st Contact Info) Description 04/15/2024 Refill [facility] [address] [place], [place] [phone] Le Haddad DO [address] [place] [address] Neuropathy Social History Tobacco Use Types Packs/Day Years Used Date Smoking Tobacco: Never Smokeless Tobacco: Never Alcohol Use Standard Drinks/Week Comments Not Currently 0 (1 standard drink = 0.6 oz pure alcohol) 1 1/2 bottles of wine per day Depression Answer Date Recorded Patient Health Questionnaire-9 Score 7 02/22/2024 Patient Health Questionnaire-9 Score 7 02/22/2024 Last PHQ-9: Questionnaire Data Not on file 0 02/22/2024 Housing Stability Answer Date Recorded What is your housing situation today? I have [place] 02/22/[address] you li ve. Do you have problems with any of the following? None of the above 02/22/2024 Food Insecurity Answer Date Recorded Within the past 12 months, y ou worried that your food would run out before you got money to buy more: Sometimes True 2023 Within the past 12 months,th e food you bought just didn't last and you didn't have enough money to get more: Sometimes True 02/22/2024 Transportation Answer Date Recorded In the past 12 months, has l ack of transportation kept you from medical appts, meetings, work or from getting things needed for daily living? No 02/22/2024 Utilities Answer Date Recorded In the past 12 months, has t he electric, gas, oil or water company threatened to shut off services in your home? No 02/22/2024 Depression Answer Date Recorded Patient Health Questionnaire-2 Score 4 02/22/2024 Comments Unknown Sex and Gender Information Value Date Recorded Sex Assigned at Female 07/04/2022 10:17 AM EDT Legal Sex Female 10:17 AM EDT Gender Identity Female 07/04/2022 10:17 AM EDT Sexual Orientation Straight 07/04/2022 10 :17 AM EDT documented as of this encounter Plan of Treatment Not on file documented as of this encounter Visit Diagnoses Diagnosis Neuropathy Mononeuritis of unspecified site documented in this encounter Additional Health Concerns Assessment Noted Time PHQ-9 Depression Total Score: 7 02/22/20 24 9:11 AM EDT documented as of this encounter Care Teams Scalloper Relationship Specialty Start Date End Date Le Haddad DO [address] [place] [id number] PCP - General Family Medicine 05/18/15 [facility] 03/26/25 documented as of this encounter
--- OUTSIDE RECORDS SUMMARY | 2025-06-05 16:28 | XMS_ITS | Encounter Summary ---
Author Organization [employer] Address [address] [place] [address] Care Team Providers Care Operators Teacher Name Role Phone AshiaLe poe Primary Care Provider + [phone] Encounter Details Date Type Department Care Team (Late st Contact Info) Description 12/12/2023 Orders Only [facility] [address] [place], [place] [phone] Provider, MD Kumar Social History Tobacco Use Types Packs/Day Years [...] documented as of this encounter Care Teams Operators Teacher Relationship Specialty Start Date End Date Le Haddad DO [address] [place] [id number] PCP - General Family Medicine 05/18/15 [facility] 03/26/25 documented as of this encounter
--- OUTSIDE RECORDS SUMMARY | 2025-06-05 16:28 | XMS_ITS | Encounter Summary ---
Author Organization [employer] Address [address] [facility] [address] [place] [address] Care Team Providers Care Fret Saw Operator Name Role Phone Le Haddad DO Primary Care Provider + [phone] Reason for Visit * Reason Onset Date Comments Reschedule 08/24/2023 Encounter Details Date Type Department Care Team ([facility] st Contact Info) Description 08/24/2023 Telephone [facility] [address] [place] [address] Le Haddad DO [address] [place] [address] Reschedule Social History Tobacco Use Types Packs/Day Years Used Date Smoking Tobacco: Never Smokeless Tobacco: Never Alcohol Use Standard Drinks/Week Comments Not Currently 0 (1 standard drink = 0.6 oz pure alcohol) 1 1/2 bottles of wine per day Depression Answer Date Recorded Patient Health Questionnaire-9 Score 6 02/07/2023 Housing Stability Answer Date Recorded What is your housing situation today? I have [place] 06/29/[address] you li ve. Do you have problems with any of the following? None of the above 06/29/2023 Food Insecurity Answer Date Recorded Within the past 12 months, y ou worried that your food would run out before you got money to buy more: Never True 06/29/2023 Within the past 12 months,th e food you bought just didn't last and you didn't have enough money to get more: Never True Transportation Answer Date Recorded In the past 12 months, has l ack of transportation kept you from medical appts, meetings, work or from getting things needed for daily living? No 06/29/2023 Utilities Answer Date Recorded In the past 12 months, has t he electric, gas, oil or water company threatened to shut off services in your home? No 06/29/2023 Depression Answer Date Recorded Patient Health Questionnaire-2 Score 3 02/07/2023 Comments Unknown Sex and Gender Information Value Date Recorded Sex Assigned at Female 07/04/2022 10:17 AM EDT Legal Sex Female 10:17 AM EDT Gender Identity Female 07/04/2022 10:17 AM EDT Sexual Orientation Straight 07/04/2022 10 :17 AM EDT documented as of this encounter Miscellaneous Notes * Telephone Encounter - Marychuy Cantu - 08/24/2023 8:48 AM EST Tc from pt requesting to r/s 08/24 hospital follow up appointment. documented in this encounter Plan of Treatment Not on file documented as of this encounter Visit Diagnoses Not on filedocumented in this encounter Additional Health Concerns Assessment Noted Time PHQ-9 Depression Total Score: 6 02/08/20 23 9:59 AM EDT documented as of this encounter Care Teams Fret Saw Operator Relationship Specialty Start Date End Date Le Haddad DO [address] [place] [id number] PCP - General Family Medicine 05/18/15 [facility] 03/26/25 documented as of this encounter
--- OUTSIDE RECORDS SUMMARY | 2025-06-05 16:28 | XMS_ITS | Clinical Summary ---
Author Organization [facility] Address [address] [address] Care Team Providers Care Getter Operator Name Role Phone Le Haddad DO [...] age to complete this topic Care Teams Getter Operator Relationship Specialty Start Date End Date Le Haddad DO PCP - General 09/14/20
--- OUTSIDE RECORDS SUMMARY | 2025-06-05 16:28 | XMS_ITS | Encounter Summary ---
Author Organization [employer] Address [address] [facility] [address] [place] [address] Care Team Providers Care Pepper Picker Name Role Phone Le Haddad DO Primary Care Provider + [phone] Reason for Visit * Reason Comments Med Refill Encounter Details Date Type Department Care Team ([facility] st Contact Info) Description 04/22/2024 Refill [facility] [address] [place], [place] [phone] Le Haddad DO [address] [place] [address] Neuropathy Social History Tobacco Use Types Packs/Day [...] documented as of this encounter Care Teams Pepper Picker Relationship Specialty Start Date End Date Le Haddad DO [address] [place] [id number] PCP - General Family Medicine 05/18/15 [facility] 03/26/25 documented as of this encounter
--- OUTSIDE RECORDS SUMMARY | 2025-06-05 16:28 | XMS_ITS | Clinical Summary ---
Author Organization [employer] Address [address] [facility] [address] [place] [address] Care Team Providers Care Mechanic Sound Technician Name Role Phone Le Haddad DO Primary Care Provider [phone] Allergies No known active allergies Medications * This document contains information received from the source organization and may not represent a complete record from that organization. ergocalciferol (Vitamin D2) 1.25 MG (87109 UT) capsuleIndicatio ns:Vitamin D deficiency Take 1 capsule by mouth once weekly 5 capsule 11 3 Active ondansetron (Zofran) 4 MG tablet Take 1 tablet by mouth every 8 (eight) hours if needed for nausea or vomiting. 3 Active hydrOXYzine pamoate (Vistaril) 50 MG capsuleIndicatio ns:Anxiety TAKE 1 CAPSULE BY MOUTH TWICE DAILY NEEDED FOR ANXIETY 60 capsule 2 4 Active Magnesium 400 MG capsuleIndicatio ns:Alcohol use disorder Take 400 mg by mouth 2 times daily. 60 capsule 4 Active venlafaxine XR (Effexor XR) 150 MG 24 hr capsuleIndicatio ns:Anxiety TAKE 1 CAPSULE BY MOUTH EVERY DAY 30 capsule 3 4 Active cetirizine (ZyrTEC) 10 MG tabletIndication s:Seasonal allergic rhinitis, unspecified trigger TAKE 1 TABLET BY MOUTH EVERY DAY 30 tablet 3 4 Active carvedilol (Coreg) 3.125 MG tablet Take 1 tablet (3.125 mg) by mouth with breakfast and with evening meal. 60 tablet 5 5 02/15/20 26 Active cyanocobalamin (Vitamin B-12) 1000 MCG tabletIndication s:Vitamin B12 deficiency Take 1 tablet (1,000 mcg) by mouth Once per day. 30 tablet 5 5 Active folic acid (Folvite) 1 MG tablet Take 1 tablet (1,000 mcg) by mouth Once per day. 30 tablet 5 5 Active lansoprazole (Prevacid) [address] capsule Take 1 capsule (30 mg) by mouth before breakfast. 30 capsule 11 5 02/15/20 26 Active thiamine (Vitamin B-1) 100 MG tabletIndication s:Alcohol use disorder Take 1 tablet (100 mg) by mouth Once per day. 90 tablet 3 5 Active sucralfate (Carafate) 1 GM/10ML suspension Take 1 g by mouth before breakfast, before lunch, before evening meal, and at bedtime. 5 Active naltrexone (Depade) 50 MG tablet Take 1 tablet by mouth Once per day. 5 Active Active Problems Problem Noted Date Diagnosed Date Grief 03/03/2025 Fatty liver 04/26/2024 Recurrent falls 01/11/2024 History of cocaine abuse ([facility]) 01/11/2024 Pulmonary nodules 01/07/2024 Memory loss 01/07/2024 Peripheral polyneuropathy 09/05/2023 Assessment & Plan (09/05/2023 4:39 PM EST): I will increase gabapentin to 200mg TID as suggested by pharmacist Recurrent UTI 09/05/2023 Assessment & Plan (09/05/2023 4:40 PM EST): Urine culture will be repeated, patient currently denies urinary symptoms Urinary incontinence 08/24/2023 08/24/2023 Severe episode of recurrent major depressive disorder, without psychotic features ([facility]) 02/07/2023 Osteoporosis 02/07/2023 Irritable bowel syndrome 02/07/2023 Tubular adenoma 02/07/2023 Non-occlusive coronary artery disease 02/07/2023 Alcohol use disorder 09/30/2015 Assessment & Plan (09/05/2023 4:40 PM EST): Patient reports she quit smoking, declines referral to alcohol program Alcoholic cardiomyopathy ([facility]/HCC) 09/30/2015 MAGGI (generalized anxiety disorder) 09/30/2015 Chronic gastritis 09/30/2015 Vitamin B12 deficiency 09/30/2015 Erosive esophagitis 09/30/2015 Hyperlipidemia 09/30/2015 Essential hypertension 09/30/2015 Assessment & Plan (09/05/2023 4:39 PM EST): Controlled c/w same interventions Impaired fasting glucose 09/30/2015 Multiple thyroid nodules 09/30/2015 Postsurgical menopause 09/30/2015 Resolved Problems Problem Noted Date Diagnosed Date Resolved Date Hospital discharge follow-up 09/05/2023 01/07/2024 Allergic dermatitis 09/28/2022 02/08/20 Paresthesia of foot 09/28/2022 02/08/20 23 Encounters * This document contains information received from the source organization and may not represent a complete record from that organization. Date Type Department Care Team Description 05/13/2025 Telephone [facility] [place] [address] Le Haddad, DO No Show 05/09/2025 Telephone [facility] [place] [address] Kelle Miranda, PharmD 05/07/2025 Telephone [facility] [place] [address] Le Haddad DO ChartPrep 04/29/2025 Telephone [facility] [place] [address] Le Haddad DO Call Back Request 04/16/2025 Telephone [facility] [place] [address] Le Haddad DO Med reconciliation 04/15/2025 Telephone [facility] [place] [address] Le Haddad, No Show 04/10/2025 Telephone [facility] [place] [address] Le Haddad DO Chart Prep 04/02/2025 Orders Only [facility] [place] [address] Le Haddad, Low TSH level (Primary Dx) 03/26/2025 Patient Outreach [address] [address] Le Haddad DO Pre-visit Planning (HDF scheduled and SDOH screening positive and Tobacco screening negative) 03/20/[address] [address] Le Haddad DO Nurse Triage 03/10/[address] [address] Le Haddad, Results from Last 3 Months Immunizations Immunization Administration Dates Next Due Hep A, Adult 03/09/2022,03/16/2018 Hep A, Unspecified 03/09/2022,03/16/2018 Hep B, Unspecified 03/09/2022,04/27/2018, 018 Hep B, adult 03/09/2022,04/27/2018,03/16/2018 Influenza injectable quadriv alent IIV4 with preservative 06/01/2018,06/14/2016,06/17/2015 Influenza injectable quadriv alent preservative free 07/18/2023,05/17/2022,09/11/2019,05/30 Influenza, IIV3, injectable 06/25/2014 Influenza, Split (incl. arron fied surface antigen) 05/07/2013,07/24/2012 Influenza, Unspecified 05/17/2022 Moderna Covid-19 Vaccine 12+ 03/09/2022,02/04/20 21,01/06/2021 Pfizer Covid-19 Vaccine 12+ 12/07/2023 Pfizer Covid-19 Vaccine 12+ Bivalent 02/07/2023 Pneumococcal Conjugate PCV 20 12/07/2023 Pneumococcal Polysaccharide PPSV23 01/02/2015 SARS-CoV-2, Unspecified 03/09/2022,02/03/2021, TD (adult), 2 Lf tetanus tox oid, preservative free, adsorbed 07/31/2006 Td (adult), unspecified 07/31/2006 Tdap 04/28/2014 Social History Tobacco Use Types Packs/Day Years Used Date Smoking Tobacco: Never Smokeless Tobacco: Never Tobacco Cessation:Counseling Given: Not Answered Alcohol Use Standard Drinks/Week Comments Not Currently 0 (1 standard drink = 0.6 oz pure alcohol) 1 1/2 bottles of wine per day Depression Answer Date Recorded Patient Health Questionnaire-9 Score 20 02/14/2025 Patient Health Questionnaire-9 Score 20 02/14/2025 Last PHQ-9: Questionnaire Data Not on file 0 02/14/2025 Housing Stability Answer Date Recorded What is your housing situation today? I have [place] 03/26/[address] you li ve. Do you have problems with any of the following? Mold 03/26/2025 Food Insecurity Answer Date Recorded Within the past 12 months, y ou worried that your food would run out before you got money to buy more: Never True 03/26/2025 Within the past 12 months,th e food you bought just didn't last and you didn't have enough money to get more: Never True Transportation Answer Date Recorded In the past 12 months, has l ack of transportation kept you from medical appts, meetings, work or from getting things needed for daily living? No 03/26/2025 Utilities Answer Date Recorded In the past 12 months, has t he electric, gas, oil or water company threatened to shut off services in your home? No 03/26/2025 Depression Answer Date Recorded Patient Health Questionnaire-2 Score 6 02/14/2025 Internet Access Answer Date Recorded Internet Access Q1 No 03/26/2025 Internet Access Q2 I do not want or need it 03/05 Comments Unknown Sex and Gender Information Value Date Recorded Sex Assigned at Female 07/04/2022 10:17 AM EDT Legal Sex Female 10:17 AM EDT Gender Identity Female 07/04/2022 10:17 AM EDT Sexual Orientation Straight 07/04/2022 10 :17 AM EDT Last Filed Vital Signs Vital Sign Reading Time Taken Comments Blood Pressure 134/94 02/14/2025 4:35 PM EDT Pulse 60 02/14/2025 1:29 PM EDT Temperature 36.8 C (98.3 F) 02/14/2025 1:29 PM EDT Respiratory Rate 20 02/14/2025 1:29 PM EDT Oxygen Saturation 96% 04/26/2024 10:02 AM EDT Inhaled Oxygen Concentration - - Weight 64.6 kg (142 lb 6.4 oz) 02/14/2025 1:29 P M EDT Height 162.6 cm (5' 4 ) 02/14/2025 1:29 PM EDT Body Mass Index 24.44 02/14/2025 1:29 PM EDT Plan of Treatment Health Maintenance Due Date Last Done Comments CT Colonography 1959 FIT DNA/Cologuard 1959 FIT 1959 FOBT 1959 Sigmoidoscopy 1959 Alcohol/Substance Use Screening 1971 Pap Smear 1980 Cervical Cancer Screening 1989 HPV/Cotest 1989 Zoster Vaccines (1 of 2) 2009 Colonoscopy 10/10/2018 10/10/2013 Colorectal Cancer Screening 10/10/2018 RSV Patients and Patients Aged 60 years or older (1 - Risk 60-74 years 1-dose series) 2019 Mammogram 03/22/2024 03/22/2022, 05/06, 05/25/2018 DTaP/Tdap/Td Vaccines (2 - Td or Tdap) 04/28/2024 04/28/2014, 07/31/2006, 07/31/2006 COVID-19 Vaccine ( season) 2025 12/07/2023, 02/07/2023, 03/09/2022, Additional history exists Influenza Vaccine (#1) 2025 , 05/17/2022, 05/17/2022, Additional history exists Depression Monitoring 08/16/2025 02/14/2025, 025 Tobacco Screening 02/14/2026 02/14/2025 SDOH Screening 03/26/2026 03/26/2025 Lipid Panel 02/19/2030 02/19/2025, 02/03, 07/18/2023, Additional history exists Hepatitis A Vaccines Completed 03/09/2022, 03/09/2022, 03/16/2018, Additional history exists Hepatitis B Vaccines Completed 03/09/2022, 03/09/2022, 04/27/2018, Additional history exists Hepatitis C Screening Completed 02/07/2023, 021 Pneumococcal Vaccine: 50+ Years Completed 12/07/2023, 01/02/2015 HIB Vaccines Aged Out No longer eligi ble based on patient's age to complete this topic HPV Vaccines Aged Out No longer eligi ble based on patient's age to complete this topic IPV Vaccines Aged Out No longer eligi ble based on patient's age to complete this topic Meningococcal B Vaccine Aged Out No l onger eligible based on patient's age to complete this topic Meningococcal Vaccine Aged Out No gem bernardo eligible based on patient's age to complete this topic RSV under 20 months Aged Out No longe r eligible based on patient's age to complete this topic Rotavirus Vaccines Aged Out No longer eligible based on patient's age to complete this topic Procedures Procedure Name Priority Date/Time Associated Diagnosis Comments LIPID PANEL, STANDARD Routine 02/19/2025 12:14 PM EDT Essential hypertension Depressive disorder Alcohol use disorder Alcoholic cardiomyopathy (CMS/HCC) Memory loss Chronic alcoholic gastritis without hemorrhage Peripheral polyneuropathy Pulmonary nodules Multiple thyroid nodules Urinary incontinence, unspecified type Healthcare maintenance Vitamin B12 deficiency HEPATITIS C AB W/RFL RNA, PCR W/RFL GENOTYPE,LIPA Routine 02/07/2023 10:41 AM EDT Essential hypertension MAMMOGRAM GENERIC Routine 03/22/2022 11: 08 AM EDT HM COLONOSCOPY Routine 10/10/2013 11:05 AM EST from Last 3 Months or Most Recently Relevant to Health Maintenance Results * (ABNORMAL) Lipid Panel, Standard (02/19/2025 12:14 PM EDT) Triglycerides 148 <150 mg/dL [facility] Comment:Desirable Triglyceri de: less than 150 mg/dLBorderline High Triglyceride 150-199 mg/dLHigh Triglyceride: 200-499 mg/dLVery High Triglyceride: greater than or equal to 5OO mg/dL Cholesterol 267(H) <200 mg/dL [facility] Comment:Desirable Cholestero l: less than 200 mg/dLBorderline High Cholesterol: 200-239 mg/dLHigh Cholesterol: greater than 239 mg/dL LDL Cholesterol Calculated 131(H) <100 mg/dL [facility] Comment:Desirable LDL: less than 100 mg/dLNear Optimal/Above Optimal LDL: 110- 129 mg/dLBorderline High LDL: 130-159 mg/dLHigh LDL: 160-189 mg/dLVery High LDL: greater than or equal to 190 mg/dL HDL Cholesterol 107 >40 mg/dL [facility] Comment:Desirable HDL: great er than 40 mg/dL Note: This HDL assay may give artificially low results in patients with liver disease. Blood Venous blood specimen / Unknown 02/19/2025 12:14 PM EDT 02/19/2025 1:17 PM EDT Le Haddad DO LAB BLOOD ORDERABLES Final R esult [facility] [address] [place] [phone] * Hepatitis C Antibody with Reflex to HCV RNA,PCR w/Reflex to Genotype, LiPA (02/07/2023 10:41 AM EDT) Hepatitis C Antibody NON-REACT WEN NON-REACT WEN [employer] [place] [facility] Index 0.03 <1.00 [facility] nosTxtFeedback [facility] Comment: HCV antibody was non-reactive. There is no laboratory evidence of HCV infection. In most cases, no further action is required. However, if recent HCV exposure is suspected, a test for HCV RNA (test code 78697) is suggested. For additional information, please refer to http://education.Infopia.Nextinit/faq/LAI454 (This link is being provided for informational/ educational purposes only.) 02/07/2023 10:4 1 AM EDT 02/07/2023 10:43 AM EDT Narrative [facility] - 02/08/2023 7:54 PM EDT FASTING:YES PATIENT UNABLE TO VOID; ADVISED TO RETURN FOR COLLECTION. FASTING: YES Le Jurcsak DO LAB BLOOD ORDERABLES Final R esult [facility] [address] [facility], [place] [address] [employer] [facility] [address] [place] [address] * Mammography Report 1 (03/22/2022 11:08 AM EDT) Anatomical Region Laterality Modality Breast Bilateral Mammography 03/22/2022 11:0 8 AM EDT Narrative 03/23/2022 11:17 AM EDT Refer to the Notes tab for result details [facility] Procedure: Mammography Report 1 Procedure Note Provider, Kumar, - 11/27/2022 Refer to the Notes tab for result details [facility] Procedure: Mammography Report 1 Le Haddad DO IMG BI PROCEDURES Final Resu lt * Hm Colonoscopy (10/10/2013 11:05 AM EST) Historical Provider HEALTH MAINTENANCE Final Result from Last 3 Months or Most Recently Relevant to Health Maintenance Insurance [place] [address] [place] [phone] [facility] Care Teams Mechanic Sound Technician Relationship Specialty Start Date End Date Le Haddad DO [address] [place] [address] PCP - General Family Medicine 05/18/15 [facility] 03/26/25
--- OUTSIDE RECORDS SUMMARY | 2025-06-05 16:28 | XMS_ITS | Encounter Summary ---
Author Organization [employer] Address [address] [place] [address] Care Team Providers Care Digital Media Sales Consultant Name Role Phone Le Haddad DO Primary Care Provider [phone] Encounter Details Date Type Department Care Team (Late st Contact Info) Description 09/14/2022 Orders Only [facility] [address] [place], [place] [phone] Jessica Benjamin LPN Social History Tobacco Use Types Packs/Day Years [...] Procedure Name Priority Date/Time Associated Diagnosis Comments CBC WITH AUTO DIFFERENTIAL Routine 02/14/2023 7:45 PM EDT DRUG MONITOR, PANEL 1, SCREEN, URINE Routine 02/14/2023 7:10 PM EDT documented in this encounter Results * (ABNORMAL) CBC auto differential (02/14/2023 7:45 PM EDT) White Blood Count 5.5 4.8 - 10.8 X10*3/uL [facility] Red Blood Count 4.39 4.20 - 5.50 X10*6/uL [facility] Hemoglobin 14.8 12.0 - 16.0 g/dl [facility] Hematocrit 43.9 37.0 - 47.0 % [facility] Mean Corpuscular Volume 100.0(H) 80.0 - 98.0 fL [facility] Mean Corpuscular Hemoglobin 33.7(H) 27.0 - 33.0 pg [facility] Mean Corpuscular HGB Conc 33.7 31.0 - 35.0 g/dl [facility] Red Cell Distribution Width 13.1 11.0 - 16.0 % [facility] Platelet Count 181 160 - 400 X10*3/uL [facility] Mean Platelet Volume 9.5 9.4 - 12.3 fL [facility] Neutrophils Percent Auto 38.5(L) 45 - 73 % [facility] Imm Gran Pct Auto 0.7(H) 0.0 - 0.4 % [facility] Lymphocytes Percent Auto 49.0(H) 20 - 40 % [facility] Monocytes Percent Auto 9.3 2 - 11 % [facility] Eosinophils Percent Auto 1.6 0 - 4 % [facility] Basophils Percent Auto 0.9 0 - 2 % [facility] NRBC Pct Auto 0.0 0.0 - 0.2 /100WBC [facility] Neutrophils Absolute Auto 2.1 2.0 - 8.3 x10*3/uL [facility] Imm Gran Abs Auto 0.04(H) 0.00 - 0.03 X10*3/uL [facility] Lymphocytes Absolute Auto 2.7 1.2 - 4.9 X10*3/uL [facility] Monocytes Absolute Auto 0.5 0.1 - 1.2 X10*3/uL [facility] Eosinophils Absolute Auto 0.1 0.0 - 0.4 X10*3/uL [facility] Basophils Absolute Auto 0.1 0.0 - 0.2 X10*3/uL [facility] NRBC Abs Auto 0.000 0.0 - 0.012 X10*3/uL [facility] 02/14/2023 7:45 PM EDT 02/14/2023 7:48 PM EDT [facility] External Provider LAB BLO OD ORDERABLES Final Result [facility] [address] [place] [address] [phone] * Drug Monitoring, Panel 1, Screen, Urine (02/14/2023 7:10 PM EDT) Opiate Screen Urine Not Detected Not Detect [facility] Comment:Opiate cut-off is 30 0 ng/mL.Positive results are unconfirmed and should not be used fornon-medical purposes. Barbiturates, Urine Not Detected Not Detect [facility] Comment:Barbiturate cut-off is 200 ng/mL.Positive results are unconfirmed and should not be used fornon-medical purposes. Phencyclidine Screen Urine Not Detected Not Detect [facility] Comment:Phencyclidine cut-of f is 25 ng/mL.Positive results are unconfirmed and should not be used fornon-medical purposes. Amphetamine Screen Urine Not Detected Not Detect [facility] Comment:Amphetamine cut-off is 1000 ng/mL.Positive results are unconfirmed and should not be used fornon-medical purposes. Benzodiazepines Screen Urine Not Detected Not Detect [facility] Comment:Benzodiazepine cut-o ff is 200 ng/mL.Positive results are unconfirmed and should not be used fornon-medical purposes. Cocaine Screen Urine Not Detected Not Detect [facility] Comment:Cocaine cut-off is 3 00 ng/mL.Positive results are unconfirmed and should not be used fornon-medical purposes. Cannabinoid Screen Urine Not Detected Not Detect [facility] Comment:Cannabinoid cut-off is 50 ng/mL.Positive results are unconfirmed and should not be used fornon-medical purposes. FENTANYL URINE Not Detected Not Detect [facility] Comment:Fentanyl cut-off is 1 ng/mL.Positive results are unconfirmed and should not be used fornon-medical purposes. 02/14/2023 7:10 PM EDT 02/14/2023 7:26 PM EDT [facility] External Provider LAB URI NE ORDERABLES Final Result [facility] [address] [place] [phone] [phone] documented in this encounter Visit Diagnoses Not on filedocumented in this encounter Care Teams Digital Media Sales Consultant Relationship Specialty Start Date End Date Le Haddad DO [address] [place] [phone] PCP - General Family Medicine 05/18/15 [facility] 03/26/25 documented as of this encounter
== END 2025-06-05 16:00 | disposition home or self-care (01) ==
LOC: HO.HUSH 15:03
PROVIDERS: PCP Family Medicine; Visit Provider Urology
DX: F10.90 Alcohol use, unspecified, uncomplicated (principal); R14.0 Abdominal distension (gaseous); R32 Unspecified urinary incontinence; N39.0 Urinary tract infection, site not specified
CPT/HCPCS: 51701; 99204

== ENCOUNTER 2025-06-18 16:01 | Inpatient (IN) | payer MEDICARE, MEDICAID, SELFPAY ==
--- NOTE | ~2025-06-18 | US_ITS ---
EXAMINATION: US ABDOMEN LIMITED CLINICAL INFORMATION: Evaluation for ascites.. COMPARISON: June 19, 2025. TECHNIQUE: Real-time ultrasound of the quadrants of the abdomen and pelvis using a curvilinear transducer with grayscale technique. FINDINGS: Limited evaluation demonstrated a small to moderate volume of free fluid mostly in the midline of the lower pelvis. US/US abdomen limited IMPRESSION: Moderate amount of ascites. Electronically signed by: Cesar Woods MD 06/25/2025 10:44 AM EDT
--- NOTE | ~2025-06-18 | CT_ITS ---
CLINICAL HISTORY: jaundice CT abdomen and pelvis with contrast Comparison: CT - CT ABDOMEN PELVIS WITH IV CONTRAST - 01/05/24 09:03 EDT Findings: No consolidation or effusion. Hepatic steatosis. The liver parenchyma is heterogeneous in attenuation. Cholelithiasis. Persistent gastric wall thickening. Small paraesophageal hernia. The spleen and pancreas are homogeneous in attenuation. Symmetric enhancement of the left and right kidney. Segmental mural thickening of the ascending colon. No bowel obstruction identified. The appendix is within normal limits. Prior hysterectomy. The bones are intact. Mild osteopenia. IMPRESSION: 1. Hepatic steatosis and cirrhosis. 2. Cholelithiasis. 3. Segmental mural thickening of the ascending colon; colitis versus carcinoma. 4. Small amount of ascites. 5. Persistent gastric wall thickening; artifact of the decompression versus gastritis. 6. Small paraesophageal hernia. This document has been electronically signed by: Srinivas Soto MD on 06/18/2025 19:17:04
--- NOTE | ~2025-06-18 | MR_ITS ---
EXAMINATION: MR MRCPWITHOUT CONTRAST CLINICAL INFORMATION: Painless jaundice COMPARISON: Correlated to ultrasound dated June 19, [address] abdomen pelvis dated June 18, 2025. TECHNIQUE: Axial and coronal T2 HASTE sequences. Axial and coronal T2 fat-sat HASTE sequences. Coronal oblique T2 fat-sat single slice. MRCP radial T2 fat-sat. Axial in and out 3-D phase sequences. 3-D space MRCP triggered. FINDINGS: Gallbladder demonstrates layering tiny cholelithiasis in the gallbladder fundus. There is intermediate T2 signal within the lumen of the gallbladder. Gallbladder wall measures 3 mm. There is a trace of pericholecystic fluid. Common bile duct measures 5 mm. There are intraluminal hypointense T2 signal abnormality is in the distal common bile duct. Liver measures 7 cm with a nodular surface. Decreased parenchymal signal from the in and out of phase sequences. There is a moderate amount of perihepatic fluid. No focal signal abnormality in the pancreas. No peripancreatic fluid collection. No main pancreatic duct measures 2 mm. Spleen measures 11 cm. There is a 4 mm hyperintense T2 lesion in the posterior parenchyma. There is small amount of perisplenic fluid. No nodular lesions in the adrenal glands. No gross hydronephrosis in the right kidney. Moderate amount of ascites. Moderate volume hiatal hernia. No gross aneurysm, abdominal aorta. Mild multilevel thoracolumbar spondylosis and levoconvex curvature of the lumbar spine. MR/MR MRCP IMPRESSION: Cholelithiasis and choledocholithiasis with likely acute cholecystitis in the correct clinical setting. Hepatic steatosis and concerning cirrhosis. Moderate amount of ascites. Hiatal hernia, moderate volume. Electronically signed by: Cesar Woods MD 06/20/2025 01:23 PM EDT
--- NOTE | ~2025-06-18 | US_ITS ---
EXAMINATION: US GUIDED PARACENTESIS CLINICAL INFORMATION: Ascites. COMPARISON: Ultrasound-guided paracentesis 06/25/2025. TECHNIQUE: Following explaining ultrasound-guided paracentesis procedure, benefits and risk, a written consent was obtained. Patient was placed supine on ultrasound table and preliminary ultrasound imaging was obtained through 4 quadrants. An optimal site was selected along the right lower quadrant and marked. The marked site was cleaned and draped in usual sterile manner. 1% lidocaine was administered puncture site. Through a small skin incision a 5 Cypriot Megadyneeh catheter was advanced from the skin into the peritoneal space. After observing fluid return, stylet was withdrawn and catheter connected to vacuum bottle via connecting cannula. Initially 50 mL of sample was collected in a separate 50 mL syringe and sent to lab. After obtaining all fluid and observing no more fluid return, catheter was withdrawn and complete hemostasis achieved at puncture site. A dressing applied post procedure. Patient tolerated procedure extremely well. FINDINGS: There is moderate ascites on preliminary ultrasound imaging. 1.4 L of clear fluid was removed from the right lower quadrant. Approximately 50 mL of ascites fluid was sent to lab for further investigation. US/US paracentesis abd w/image IMPRESSION: Successful ultrasound-guided therapeutic paracentesis performed without immediate complications. Electronically signed by: Dimitry Burrows MD 07/08/2025 07:58 AM EST
--- NOTE | ~2025-06-18 | US_ITS ---
EXAMINATION: US ABDOMEN LIMITED HISTORY: Doppler, assess for portal vein thrombosis TECHNIQUE: Real-time grayscale ultrasound imaging of the liver and gallbladder was performed and images were reviewed. COMPARISON: Comparison is made with the prior examination dated 03/20/2025. Correlation is also made with a CT of the abdomen with contrast dated 06/18/2025. FINDINGS: Liver: The right lobe of the liver measures 15.9 cm in size. The left lobe of the liver measures 5.6 cm in size. The liver demonstrates coarsened increased echotexture, consistent with steatosis. Evaluation for masses is limited by overlying bowel gas and difficulty in patient positioning. There is limited visualization of the portal veins. A normal portal venous waveform is noted in the expected position of the portal vein. Gallbladder and biliary tree: There is an cholelithiasis. There is no sonographic Darden sign. There is a small amount of free fluid around the liver. US/US abdomen limited IMPRESSION: 1. Limited examination as described above. Hepatic steatosis. Small amount of upper abdominal ascites. The portal vein is poorly visualized, but is normal portal venous waveform is seen in the expected position of a portal vein. 2. Cholelithiasis Electronically signed by: Saul Martin MD 06/19/2025 09:15 AM EDT
[2025-06-18 16:13] VITALS: BP 127/76; PULSE 98; O2SAT 96
[2025-06-18 16:20] VITALS: BP 118/56; PULSE 90; RESP 18; TEMP 36.5; O2SAT 99; BMI 23.4
--- NOTE | 2025-06-18 16:46 | ED_ITS ---
HPI - General Adult General Chief complaint: Abdominal Pain Stated complaint: lower abd pain, cramping x5days Time Seen by Provider: 06/18/25 16:46 Source: patient Mode of arrival: ambulatory Limitations: no limitations History of Present Illness ED Provider: Dr. Rayo HPI narrative: 64-year-old female history of alcohol use disorder presented hospital today for new onset of jaundice. This has been going on for a couple of weeks now. Patient stated that she saw the urologist she was prescribed antibiotic for a possible UTI. Patient drinks bottle of wine daily. Last drink was before arrival here. Denies any fever. Denies any diarrhea. Patient stated the jaundice is new. She does have new abdominal distention as well. She has no abdominal pain. Related Data Home Medications ?Medication ?Instructions ?Recorded ?Confirmed carvedilol 3.125 mg tablet 3.125 mg PO BID 03/20/25 gabapentin 300 mg capsule 300 mg PO TID PRN Pain 03/2006/05/25 lansoprazole 30 mg capsule,delayed 30 mg PO DAILY@0630 03/20/25 06/05/25 release Previous Rx's ?Medication ?Instructions ?Recorded sucralfate 100 mg/mL oral 1 g (10 mL) PO QIDACHS 30 da ys 03/25/25 suspension #1,000 mL folic acid 1 mg tablet 1 mg PO DAILY 30 days #30 ta bs 03/27/25 naltrexone 50 mg tablet 50 mg PO DAILY #14 tabs 03/05 12/27 thiamine mononitrate (vit B1) 100 100 mg PO DAILY 30 d ays #30 tabs 03/27/25 mg tablet vibegron 75 mg tablet (Gemtesa) 75 mg PO DAILY #30 tab s 06/05/25 nitrofurantoin 100 mg PO BID 7 days #14 cap s 06/09/25 monohydrate/macrocrystals 100 mg capsule (Macrobid) Allergies Allergy/AdvReac Type Severity Reaction Status Date / Time No Known Allergies (No Known Allergy Verified 06/18/25 16:22 Allergies*) Review of Systems 2 Review of Systems: Pertinent review of systems as mentioned in HPI. All other system otherwise negative. PMFSH Past Medical History [facility] Narrative: Alcohol use disorder, neuropathy Medical History Alcohol use disorder, severe, dependence Alcohol use disorder Alcoholic steatohepatitis Myocardial infarct Alcohol use disorder Multinodular thyroid Anxiety CHF (congestive heart failure) ETOH abuse Surgical History History of esophagogastroduodenoscopy (EGD) Hx of colonoscopy Hx of hysterectomy Family History Family History Mother Cancer Father No problems noted. Social History Social History Household Members: Friend(s) Household Members Other:: roommate Housing: House Do you presently have visiting nurse or other home services: No Alcohol intake: current Alcohol intake frequency: 3 or more drinks per day Alcohol type: wine Patient Tobacco Use Status: Never used Tobacco Smoked in Last 30 Days: No Second Hand Smoke Exposure: Yes Use of substances other than those prescribed or required for medical reasons: No Substance Use Type: Crack/Cocaine Advance Directives: Yes Advance Directives on File: Yes Advance Directives Date on File: 07/22/23 service: No Current occupational status: disabled Physical Exam ED Exam Exam: General: Pleasant, no distress, appears jaundice, scleral icterus appreciated Head: Normacephalic, atraumatic ENT: oral mucosa dry, neck supple, no tracheal deviation Cardiovascular: regular rate, regular rhythm, no murmurs, rubbing, gallops Respiratory: CTAB, no wheeze, rales, rhonchi Gastrointestinal: Distended abdomen, spider angioma appreciated on exam Extremities: No limb pain or swelling, no calf tenderness Neurological: Awake and alert, no facial droop noted Skin: Warm and dry Psychiatric: Appropriate mood and thoughts Vital Signs: Vital Signs - 24 hr 06/18/25 16:20 06/18/25 18:07 06/18/25 20:40 Temperature 97.7 F 97.8 F Pulse Rate 90 90 87 Respiratory Rate 18 16 16 Blood Pressure 118/56 L 123/71 124/61 Pulse Oximetry 99 98 97 Oxygen Delivery Method Room Air Room Air Room Air BMI result Body Mass Index 23.4 Medications Administered Discontinued Medications Generic Name Dose Route Start Last Admin Trade Name Freq PRN Reason Stop Dose Admin Al Hydroxide/Mg Hydroxide 30 ml 06/18/25 19:32 06/18/25 20:48 Magnesium Hydrox/Alum Hydrox 30 Ml Oral.Susp PO 06/18/25 19:33 30 ml ONCE ONE Administration Folic Acid 1 mg 06/18/25 17:20 06/18/25 18:02 Folic Acid 1 Mg Tablet PO 06/18/25 17:21 1 mg ONCE ONE Administration Thiamine HCl 100 mg/ Sodium 101 mls @ 202 mls/hr 06/18/25 17:20 06/18/25 19:00 Chloride IV 06/18/25 17:49 Infused ONCE ONE Infusion Lactated Ringer's 1,000 mls @ 999 mls/hr 06/18/25 17:30 06/18/25 21:18 Lr IV 06/18/25 18:30 Infused .Q1H1M ADELIA Infusion Magnesium Sulfate 2 gm in 50 mls @ 50 mls/hr 06/18/25 21:00 06/18/25 21:18 Magnesium Sulfate/H2o IV 06/18/25 21:59 50 mls/hr ONCE ONE Administration Iohexol 100 ml 06/18/25 18:28 06/18/25 18:29 Iohexol 350 Mg/Ml 100 Ml Infus..Btl IV 06/18/25 18:29 85 ml ONCE ONE Administration Lidocaine HCl 15 ml 06/18/25 19:32 06/18/25 20:48 Lidocaine Hcl Viscous 2 % 15 Ml Solution MUCOUS MEM 06/18/25 19:33 15 ml ONCE ONE Administration Potassium Bicarbonate 25 meq 06/18/25 21:00 06/18/25 21:17 Potassium Bicarbonate/Cit Ac 25 Meq Tablet.Eff PO 06/18/25 21:01 25 meq ONCE ONE Administration Medical Decision Making Medical Decision Making MDM Narrative: 64-year-old female history of alcohol use disorder presented hospital today for new onset of jaundice, abdominal distention. Patient has not been eating for the past 5 days. Patient has been endorsing daily alcohol use with 1 bottle of wine. This jaundice and abdominal distention is new for her. She has no history of liver issues in the past. We will obtain abdominal lab work for the patient including CBC CMP lipase. We will plan to obtain a CT abdomen and pelvis to assess for other cause of jaundice including neoplasm versus choledocholithiasis or cholecystitis. Low suspicion for cholecystitis. She has no Darden's sign on exam. Patient does have distended abdomen likely secondary to ascites. INR will be added onto her lab work. We will also plan to give patient is thiamine, folic acid and a Liter of lactated Ringer for fluid hydration. Patient's CT abdomen and pelvis shows signs of possible colitis, patient has small ascites as well. Patient also has possible gastritis, and cholelithiasis on CT imaging. Signs of hepatic cirrhosis as well. Patient's INR is elevated at 1.7. Bilirubin elevated at 10.7. I did discuss the case with the GI doctor on-call Dr. Porter He recommends Doppler ultrasound for portal venous thrombosis rule out, diagnostic tap of the ascites tomorrow morning. An admission to the hospital. MELD NA score 21. Patient will be admitted to the hospital at this time. Differential Diagnosis Differential Diagnoses: The differential diagnosis associated with the presentation includes Liver failure, cirrhosis, alcohol use liver injury, hepatitis Consult Healthcare Provider Management of the patient was discussed with: Helmet Hat Sweatband Puncher (Dr. Porter (GI) ) Lab Data MDM Lab Attestation statement: I reviewed the patient's lab results. 06/18/25 17:01 06/18/25 17:00 Labs: Lab Results 06/18/25 06/18/25 06/18/25 Range/Units 17:00 17:01 17:47 WBC 4.6 L (4.8-10.8) X10*3/uL RBC 2.60 L D (4.20-5.50) X10*6/uL Hgb 10.2 L (12.0-16.0) g/dl Hct 28.8 L (37.0-47.0) % MCV 110.8 H (80.0-98.0) fL MCH 39.2 H (27.0-33.0) pg MCHC 35.4 H (31.0-35.0) g/dl RDW 19.9 H (11.0-16.0) % Plt Count 102 L (160-400) X10*3/uL MPV 10.3 (9.4-12.3) fL Immature Gran % (Auto) 1.7 H (0.0-0.4) % Neut % (Auto) 66.1 (45-73) % Lymph % (Auto) 21.3 (20-40) % [place] % (Auto) 9.7 (2-11) % Eos % (Auto) 0.6 (0-4) % Baso % (Auto) 0.6 (0-2) % Lymph # (Auto) 1.0 L (1.2-4.9) X10*3/uL [place] # (Auto) 0.5 (0.1-1.2) X10*3/uL Eos # (Auto) 0.0 (0.0-0.4) X10*3/uL Baso # (Auto) 0.0 (0.0-0.2) X10*3/uL Abs Immat Gran (auto) 0.08 H (0.00-0.03) X10*3/uL Absolute Neuts (auto) 3.1 (2.0-8.3) x10*3/uL Absolute Nucleated RBC 0.020 H (0.0-0.012) X10*3/uL Nucleated RBC % (auto) 0.4 H (0.0-0.2) /100WBC Smear Tech's Comments VERIFIED PT 19.1 H D (10.9-12.4) SEC INR 1.7 H (0.9-1.1) Sodium 143 (135-145) mmol/L Potassium 3.2 L (3.3-5.1) mmol/L Chloride 105 (96-108) mmol/L Carbon Dioxide 17 L (22-29) mmol/L Anion Gap 24 H (12-20) BUN 4 L (9-16) mg/dL Creatinine 0.42 L (0.5-1.4) mg/dL Estim Creat Clear Calc 115.3 Estimated GFR > 60 Random Glucose 81 (60-115) mg/dL Calcium 9.1 (8.4-10.2) mg/dL Magnesium 1.5 L (1.6-2.6) mg/dL Total Bilirubin 10.7 H (0.0-1.0) mg/dL AST 243 H (5-31) U/L ALT 46 H (0-31) U/L Alkaline Phosphatase 168 H (39-117) U/L Total Protein 7.1 (6.5-8.0) g/dL Albumin 3.7 (3.5-5.0) g/dL Lipase 38 (8-78) U/L Beta-Hydroxybutyrate 8.65 H (0.02-0.27) mmol/L Urine Color Urine Appearance Urine pH (5.0-9.0) Ur Specific [place] (1.005-1.025) Urine Protein (Neg-Trace) mg/dL Urine Glucose (UA) (Negative) mg/dL Urine Ketones (Negative) mg/dL Urine Blood (Negative) Urine Nitrite (Negative) Ur Leukocyte Esterase (Negative) Urine RBC (0-2) /HPF Urine WBC (0-5) /HPF Ur Squamous Epith Cells (0-2) /HPF Urine Bacteria (None Seen) Hyaline Casts (0-2) /LPF Ethyl Alcohol 85 mg/dL 06/18/ Range/Units 19:52 WBC (4.8-10.8) X10*3/uL RBC (4.20-5.50) X10*6/uL Hgb (12.0-16.0) g/dl Hct (37.0-47.0) % MCV (80.0-98.0) fL MCH (27.0-33.0) pg MCHC (31.0-35.0) g/dl RDW (11.0-16.0) % Plt Count (160-400) X10*3/uL MPV (9.4-12.3) fL Immature Gran % (Auto) (0.0-0.4) % Neut % (Auto) (45-73) % Lymph % (Auto) (20-40) % [place] % (Auto) (2-11) % Eos % (Auto) (0-4) % Baso % (Auto) (0-2) % Lymph # (Auto) (1.2-4.9) X10*3/uL [place] # (Auto) (0.1-1.2) X10*3/uL Eos # (Auto) (0.0-0.4) X10*3/uL Baso # (Auto) (0.0-0.2) X10*3/uL Abs Immat Gran (auto) (0.00-0.03) X10*3/uL Absolute Neuts (auto) (2.0-8.3) x10*3/uL Absolute Nucleated RBC (0.0-0.012) X10*3/uL Nucleated RBC % (auto) (0.0-0.2) /100WBC Smear Tech's Comments PT (10.9-12.4) SEC INR (0.9-1.1) Sodium (135-145) mmol/L Potassium (3.3-5.1) mmol/L Chloride (96-108) mmol/L Carbon Dioxide (22-29) mmol/L Anion Gap (12-20) BUN (9-16) mg/dL Creatinine (0.5-1.4) mg/dL Estim Creat Clear Calc Estimated GFR Random Glucose (60-115) mg/dL Calcium (8.4-10.2) mg/dL Magnesium (1.6-2.6) mg/dL Total Bilirubin (0.0-1.0) mg/dL AST (5-31) U/L ALT (0-31) U/L Alkaline Phosphatase (39-117) U/L Total Protein (6.5-8.0) g/dL Albumin (3.5-5.0) g/dL Lipase (8-78) U/L Beta-Hydroxybutyrate (0.02-0.27) mmol/L Urine Color Dark Yellow Urine Appearance Clear Urine pH 6.0 (5.0-9.0) Ur Specific [place] >= 1.030 H (1.005-1.025) Urine Protein Trace (Neg-Trace) mg/dL Urine Glucose (UA) Negative (Negative) mg/dL Urine Ketones >=160 (Negative) mg/dL Urine Blood Negative (Negative) Urine Nitrite Negative (Negative) Ur Leukocyte Esterase Trace H (Negative) Urine RBC 0-2 (0-2) /HPF Urine WBC 0-5 (0-5) /HPF Ur Squamous Epith Cells 0-2 (0-2) /HPF Urine Bacteria None Seen (None Seen) Hyaline Casts 0-2 (0-2) /LPF Ethyl Alcohol mg/dL Independent Interpretation I performed an independent interpretation of an: CT Scan Radiology Impression Discussion of test interpretation with radiology: I have reviewed the radiologist's reading. Chronic Conditions Alcohol use disorder Critical Care Time Critical Care Time Critical Care Time: Yes Total Critical Care Time: 40 Attestation: Time is exclusive of separately billable procedures. Time includes: direct patient care, patient reassessment, coordination of patient care, interpretation of data (laboratory data, pulse oximetry, arterial blood gases and chest xrays), review of patient's medical records, medical consultation and documentation of patient care. Procedures excluded from critical care time: central intravenous line placement and electrocardiography. Discharge Plan Discharge Clinical Impression: Cirrhosis of liver, Alcohol use disorder, Jaundice, Elevated bilirubin Patient Disposition: Admitted As Inpatient
[2025-06-18 17:09] LABS: Hematocrit 28.8 % (37.0-47.0); Hemoglobin 10.2 g/dl (12.0-16.0); Imm Gran Abs Auto 0.08 X10*3/uL (0.00-0.03); Imm Gran Pct Auto 1.7 % (0.0-0.4); Lymphocytes Absolute Auto 1.0 X10*3/uL (1.2-4.9); Mean Corpuscular HGB Conc 35.4 g/dl (31.0-35.0); Mean Corpuscular Hemoglobin 39.2 pg (27.0-33.0); NRBC Abs Auto 0.020 X10*3/uL (0.0-0.012); NRBC Pct Auto 0.4 /100WBC (0.0-0.2); Platelet Count 102 X10*3/uL (160-400); Red Blood Count 2.60 X10*6/uL (4.20-5.50); White Blood Count 4.6 X10*3/uL (4.8-10.8)
[2025-06-18 17:13] LABS: Mean Corpuscular Volume 110.8 fL (80.0-98.0)
[2025-06-18 17:14] LABS: MANUAL DIFF FLAG SCAN
[2025-06-18 17:28] LABS: Alanine Aminotransferase 46 U/L (0-31); Albumin Level 3.7 g/dL (3.5-5.0); Alkaline Phosphatase 168 U/L (39-117); Anion Gap 24 (12-20); Aspartate Amino Transferase 243 U/L (5-31); Blood Urea Nitrogen 4 mg/dL (9-16); Calcium 9.1 mg/dL (8.4-10.2); Carbon Dioxide 17 mmol/L (22-29); Chloride 105 mmol/L (96-108); Creatinine Clr Calc Pharmacy 115.3; Estimated Glomerular Filt Rate > 60; Lipase 38 U/L (8-78); Magnesium 1.5 mg/dL (1.6-2.6); Potassium 3.2 mmol/L (3.3-5.1); Sodium 143 mmol/L (135-145); Total Protein 7.1 g/dL (6.5-8.0)
[2025-06-18 17:58] LABS: INTERNATIONAL NORM RATIO 1.7 (0.9-1.1); Prothrombin Time 19.1 SEC (10.9-12.4)
[2025-06-18] MEDS: Thiamine HCL 100 MG in 0.9 % Sodium Chloride 100 ML 202 MG IV (18:02)
[2025-06-18] MEDS: Lactated Ringers 1,000 ML 999 ML IV (18:05)
[2025-06-18 18:07] VITALS: BP 123/71; PULSE 90; RESP 16; O2SAT 98
[2025-06-18] MEDS: iohexoL 350 MG/ML 100 ML INFUS..BTL IV (18:29)
--- OUTSIDE RECORDS SUMMARY | 2025-06-18 19:28 | XMS_ITS | Encounter Summary ---
Author Organization [employer] Address [address] [place] [address] Care Team Providers Care Candy Maker Helper Name Role Phone AshiaLe poe Primary Care Provider + [phone] Encounter Details Date Type Department Care Team (Late st Contact Info) Description 12/12/2023 Orders Only [facility] [address] [place], [place] [id number] Provider, MD Kumar Social History Tobacco Use [...] documented as of this encounter Care Teams Candy Maker Helper Relationship Specialty Start Date End Date Le Haddad DO [address] [place] [id number] PCP - General Family Medicine 05/18/15 [facility] 03/26/25 documented as of this encounter
--- OUTSIDE RECORDS SUMMARY | 2025-06-18 19:28 | XMS_ITS | Clinical Summary ---
Author Organization [employer] Address [address] [facility] [address] [facility] [address] [place] [address] Care Team Providers Care Ski Maker Name Role Phone Le Haddad DO Primary Care Provider Allergies No known active allergies Medications * This document contains information received from the source organization and may not represent a complete record from that organization. ergocalciferol (Vitamin D2) 1.25 MG ([id number] UT) capsuleIndicatio ns:Vitamin D deficiency Take 1 [...] Recurrent falls 01/11/2024 History of cocaine abuse ([facility]) 01/11/2024 Pulmonary nodules 01/07/2024 Memory loss 01/07/2024 Peripheral polyneuropathy 09/05/2023 Assessment & Plan (09/05/2023 4:39 PM EST): I will increase gabapentin to 200mg TID as suggested by pharmacist Recurrent UTI 09/05/2023 Assessment & Plan (09/05/2023 4:40 PM EST): Urine culture will be repeated, patient currently denies urinary symptoms Urinary incontinence 08/24/2023 08/24/2023 Severe episode of recurrent major depressive disorder, without psychotic features ([facility]) 02/07/2023 Osteoporosis 02/07/2023 Irritable bowel syndrome 02/07/2023 Tubular adenoma 02/07/2023 Non-occlusive coronary artery disease 02/07/2023 Alcohol use disorder 09/30/2015 Assessment & Plan (09/05/2023 4:40 PM EST): Patient reports she quit smoking, declines referral to alcohol program Alcoholic cardiomyopathy ([facility]/HCC) 09/30/2015 MAGGI (generalized anxiety disorder) 09/30/2015 Chronic [...] organization. Date Type Department Care Team Description 06/18/2025 Orders Only [facility] External Provider, [facility] 05/13/2025 Telephone [facility] MEDICINE [address] [place] [address] Le Haddad, DO No Show 05/09/2025 Telephone [facility] MEDICINE [address] [place] [address] Kelle Miranda, PharmD 05/07/2025 Telephone [facility] MEDICINE [address] [place] [address] Le Haddad, ChartPrep 04/29/2025 Telephone [facility] MEDICINE [address] [place] [address] Le Haddad DO Call Back Request 04/16/2025 Telephone [facility] MEDICINE [address] [place] [address] Le Haddad DO Med reconciliation 04/15/2025 Telephone [facility] MEDICINE [address] [place] [address] Le Haddad, DO No Show 04/10/2025 Telephone [facility] MEDICINE [address] [place] [address] Le Haddad, Chart Prep 04/02/2025 Orders Only [facility] MEDICINE [address] [place] [phone] Le Haddad DO Low TSH level (Primary Dx) 03/26/2025 Patient Outreach [facility] MEDICINE [address] [place], [place] [phone] Le Haddad DO Pre-visit Planning (HDF scheduled and SDOH screening positive and Tobacco screening negative) 03/20/2025 Telephone [facility] MEDICINE [address] [place], [place] [phone] Le Haddad, Nurse Triage from Last 3 Months Immunizations Immunization Administration [...] Procedure Name Priority Date/Time Associated Diagnosis Comments CT ABDOMEN PELVIS W CONTRAST Routine 06/18/2025 7:17 PM EDT PROTHROMBIN TIME-INR Routine 06/18/2025 5:47 PM EDT Low TSH level CULTURE, URINE, ROUTINE Routine 06/05/2025 3:02 PM EDT Low TSH level LIPID PANEL, STANDARD Routine 02/19/2025 12:14 PM [...] Recently Relevant to Health Maintenance Results * CT Abdomen Pelvis w/ Contrast (06/18/2025 7:17 PM EDT) Anatomical Region Laterality Modality Body, Pelvis, Abdomen Computed T omography 06/18/2025 7:17 PM EDT Narrative 06/18/2025 7:18 PM EDT [address] [address] [address] Scan Report Signed Patient: Nubia Bell MR#: [id number] : 1960 Acct:[id number] Age/Sex: 64 / F ADM Date: 06/18/25 Loc: HO.ED Attending Dr: Ordering Physician: Evelyn Rayo DO Date of Service: 06/18/25 Procedure(s): CT abdomen pelvis w IV con Accession Number(s): [id number] cc: Evelyn Rayo DO; Ella Haddadniyaritza Joyce DO Report Number: [id number]: Total DLP = 565.00 mGy-cm Reason for Exam: jaundice CLINICAL HISTORY: jaundice CT abdomen and pelvis with contrast Comparison: CT - CT ABDOMEN PELVIS WITH IV CONTRAST - 01/05/24 09:03 EDT Findings: No consolidation or effusion. Hepatic steatosis. The liver parenchyma is heterogeneous in attenuation. Cholelithiasis. Persistent gastric wall thickening. Small paraesophageal hernia. The spleen and pancreas are homogeneous in attenuation. Symmetric enhancement of the left and right kidney. Segmental mural thickening of the ascending colon. No bowel obstruction identified. The appendix is within normal limits. Prior hysterectomy. The bones are intact. Mild osteopenia. IMPRESSION: 1. Hepatic steatosis and cirrhosis. 2. Cholelithiasis. 3. Segmental mural thickening of the ascending colon; colitis versus carcinoma. 4. Small amount of ascites. 5. Persistent gastric wall thickening; artifact of the decompression versus gastritis. 6. Small paraesophageal hernia. This document has been electronically signed by: Srinivas Soto MD on 06/18/2025 19:17:04 Dictated By: Srinivas Soto MD Signed By: <Electronically signed by Srinivas Soto MD in OV> 06/18/251916 DD/ 16 TD/TT: 06/18/251916 Kiln Firer Helper: Procedure Note Donotuseinterpreter, Image - 06/18/[address] [address] [address] Scan Report Signed Patient: Nubia Bell [facility]#: [id number] : 9Acct:[id number] Age/Sex: 64 / FADM Date: 06/18/25 Loc: HO.ED Attending Dr: Ordering Physician: Evelyn Rayo DO Date of Service: 06/18/25 Procedure(s): CT abdomen pelvis w IV con Accession Number(s): [id number] cc: Evelyn Rayo DO; Le Haddad DO Report Number: [id number]: Total DLP = 565.00 mGy-cm Reason for Exam: jaundice CLINICAL HISTORY: jaundice CT abdomen and pelvis with contrast Comparison: CT - CT ABDOMEN PELVIS WITH IV CONTRAST - 01/05/24 09:03 EDT Findings: No consolidation or effusion. Hepatic steatosis. The liver parenchyma is heterogeneous in attenuation. Cholelithiasis. Persistent gastric wall thickening. Small paraesophageal hernia. The spleen and pancreas are homogeneous in attenuation. Symmetric enhancement of the left and right kidney. Segmental mural thickening of the ascending colon. No bowel obstruction identified. The appendix is within normal limits. Prior hysterectomy. The bones are intact. Mild osteopenia. IMPRESSION: 1. Hepatic steatosis and cirrhosis. 2. Cholelithiasis. 3. Segmental mural thickening of the ascending colon; colitis versus carcinoma. 4. Small amount of ascites. 5. Persistent gastric wall thickening; artifact of the decompression versus gastritis. 6. Small paraesophageal hernia. This document has been electronically signed by: Srinivas Soto MD on 06/18/2025 19:17:04 Dictated By: Srinivas Soto MD Signed By: <Electronically signed by Srinivas Soto MD in OV> 06/18/251916 DD/ 16 TD/TT: 06/18/251916 Kiln Firer Helper: [facility] External Provider IMG CT PROCEDURES Final Result * (ABNORMAL) Prothrombin Time-INR (06/18/2025 5:47 PM EDT) Prothrombin Time 19.1(H) 10.9 - 12.4 SEC [facility] INTERNATIONAL NORM RATIO 1.7(H) 0.9 - 1.1 [facility] Comment:INTERNATIONAL NORMAL IZED RATIO (INR) REFERENCE RANGES Reference RangeFor patients not on anticoagulant therapy: 0.9 - 1.1INR ranges for oral anticoagulanttherapy:For prevention and treatment of venous thrombosis and pulmonary embolism: 2.0 - 3.0For acute myocardial infarction with aspirin therapy: 2.0 - 3.0For acute myocardial infarction without aspirin therapy: 3.0 - 4.0For patients with mechanical prosthetic heart valves: 2.5 - 3.5 06/18/2025 5:47 PM EDT 06/18/2025 5:50 PM EDT Generic External Data Provider LAB BLOOD ORDERAB LES Final Result Performing Organization Address [facility] de Phone Number [facility] [address] [place] [phone] * Culture, Urine, Routine (06/05/2025 3:02 PM EDT) Urine Urine specimen obtained by clean catch procedure / Unknown 06/05/2025 3:02 PM EDT 06/05/2025 6:35 PM EDT Comment:[facility] Narrative [facility] - 06/08/2025 8:09 AM EDT Escherichia coli Quant > 100,000 cfu/mL Escherichia coli: Ampicillin >=32(R) Escherichia coli: Cefazolin (Urine) 2(S) Escherichia coli: Cefepime <=0.12(S) Escherichia coli: Ceftriaxone <=0.25(S) Escherichia coli: Ciprofloxacin <=0.06(S) Escherichia coli: Gentamicin <=1(S) Escherichia coli: Nitrofurantoin <=16(S) Escherichia coli: Trimethoprim/Sulfamethoxazole >=320(R) Specimen Source: Urine clean catch [facility] External Data Provider LAB MICROBIOLOGY - GENERAL ORDERABLES Final Result Performing Organization Address [facility] de Phone Number [facility] [address] [place] [phone] * (ABNORMAL) Lipid Panel, Standard (02/19/2025 12:14 PM EDT) Triglycerides 148 <150 mg/dL [facility] Comment:Desirable Triglyceri de: less than 150 mg/dLBorderline High Triglyceride 150-199 mg/dLHigh Triglyceride: 200-499 mg/dLVery High Triglyceride: greater than or equal to 5OO mg/dL Cholesterol 267(H) <200 mg/dL [facility] Comment:Desirable Cholestero l: less than 200 mg/dLBorderline High Cholesterol: 200-239 mg/dLHigh Cholesterol: greater than 239 mg/dL LDL Cholesterol Calculated 131(H) <100 mg/dL [facility] Comment:Desirable LDL: less than 100 mg/dLNear Optimal/Above Optimal LDL: 110- 129 mg/dLBorderline High LDL: 130-159 mg/dLHigh LDL: 160-189 mg/dLVery High LDL: greater than or equal to 190 mg/dL HDL Cholesterol 107 >40 mg/dL [facility] Comment:Desirable HDL: great er than 40 mg/dL Note: This HDL assay may give artificially low results in patients with liver disease. Blood Venous blood specimen / Unknown 02/19/2025 12:14 PM EDT 02/19/2025 1:17 PM EDT us Le Haddad DO LAB BLOOD ORDERABLES Final R esult [facility] [address] [place] [phone] * Hepatitis C Antibody with Reflex to HCV RNA,PCR w/Reflex to Genotype, LiPA (02/07/2023 10:41 AM EDT) Hepatitis C Antibody NON-REACT WEN NON-REACT WEN [facility] [place] [facility] Index 0.03 <1.00 [facility] [place] [facility] Comment: HCV antibody was non-reactive. There is no laboratory evidence of HCV infection. In most cases, no further action is required. However, if recent HCV exposure is suspected, a test for HCV RNA (test code 14862) is suggested. For additional information, please refer to http://education.InfoAssure.MicroVision/faq/NIX766 (This link is being provided for informational/ educational purposes only.) 02/07/2023 10:4 1 AM EDT 02/07/2023 10:43 AM EDT Narrative [facility] - 02/08/2023 7:54 PM EDT FASTING:YES PATIENT UNABLE TO VOID; ADVISED TO RETURN FOR COLLECTION. FASTING: YES Le Haddad DO LAB BLOOD ORDERABLES Final R esult [facility] [address], [place] [phone] [place] [facility] [address] [place] [phone] * Mammography Report 1 (03/22/2022 11:08 AM [...] Recently Relevant to Health Maintenance Insurance MEDICARE [facility] STANDARD Care Teams Ski Maker Relationship Specialty Start Date End Date Le Haddad DO [address] [place] [address] PCP - General Family Medicine 05/18/15 [facility] 03/26/25
--- OUTSIDE RECORDS SUMMARY | 2025-06-18 19:28 | XMS_ITS | Data Portability ---
Author Organization [facility], Main Office Address [address] [facility], [address] [place] [address] Care Team Providers Care Manager Rn Case Name Role Phone PHILLIP PINZON - 2ND FLOOR OTHER STEPHANIE HOLCOMB Primary Care Provider Assessment Encounter Date Assessment Date Assessment LastModified by Organization Details LastModified Time 02/06/2024 02/06/2024 45 minutes spent on coordination of discharge. [email or web address] Not available 02/06/2024 14:13:31 Plan of Treatment [...] Address Organization Details Recorded Time Hypomagnbailey morenoa 862027889 Active 2023 Carri Gabriel NP [address] [facility], [address], [place], [address], [facility] 4 09:00:49 Bacteremi a 0862938 Active 2023 Carri Gabriel NP [address] [facility] [facility], [address], [place], [address], [facility] 4 09:01:03 Gastroeso phageal reflux disease 642805833 Active 2023 Carri Gabriel NP [address] [facility] [facility], [address], [place], [address], [facility] 4 09:01:21 Adult failure to thrive syndrome 513058565 Active 2023 Carri Gabriel NP [address] [facility], [address], [place], [address], [facility] 4 09:01:32 Asthenia 64897888 Active 2023 Carri Gabriel NP [address] [facility], [address], [place], [address], [facility] 4 09:01:39 Mixed anxiety and depressiv e disorder 569149301 Active 2023 Carri Gabriel NP [address] [facility], [address], [place], [address], [facility] 4 09:01:55 Seasonal allergy 544798850 Active 2023 Carri Gabriel NP [address] [facility], [address], [place], [address], [facility] 4 09:02:06 Substance abuse 68251920 Active 2023 Carri Gabriel NP [address] [facility], [address], [place], [address], [facility] 4 09:03:33 Pyeloneph ritis 22186336 Active 2023 Crari Gabriel NP [address] [facility], [address], [place], [address], [facility] 4 09:04:17 History of cocaine abuse 422806873036 106 Completed 202301/11/2024 Carri Gabriel NP [address] [facility], [address], [place], [address], [facility] 4 09:08:03 Vitamin deficienc y 45258762 Active 2023 Carri Gabriel NP [address] [facility], [address], [place], [address], [facility] 4 09:15:37 Thyroid nodule 051572184 Completed 202301/11/2024 Carri Gabriel NP [address] [facility], [address], [place], [address], [facility] 4 10:05:42 Heart failure 85601044 Active 2023 Carri Gabriel NP [address] [facility], [address], [place], [address], [facility] 4 10:05:52 Hypertens rona disorder 79274769 Active 2023 Carri Gabriel NP [address] [facility], [address], [place], [address], [facility] 4 10:07:05 Steatotic liver disease 282052470 Completed 202301/11/2024 Avis Covington MD [address] [facility], [address], [place], [address], [facility] 4 22:04:40 Recurrent falls 890818880 Active 2023 Carri Gabriel NP [address] [facility], [address], [place], [address], [facility] 4 10:22:04 Fracture of multiple ribs 4143814 Active 2023 Carri Gabriel NP [address] [facility], [address], [place], [address], [facility] 4 10:26:33 Harmful pattern of use of alcohol 36805073 Active 2023 Avis Covington MD [address] [facility], [address], [place], [address], [facility] 4 19:45:27 History of cerebrova scular accident 119724039 Active 2023 Avis Covington MD [address] [facility], [address], [place], [address], [facility] 4 19:56:24 Neck pain 66339770 Active 2023 Avis Covington MD [address] [facility], [address], [place], [address], [facility] 4 21:47:58 Steatotic liver disease 787712233 Active 2023 Avis Covington MD [address] [facility], [address], [place], [address], [facility] 4 22:04:40 Jose escobar 434957657 Active 2023 Avis Covington MD [address] [facility], [address], [place], [address], [facility] 4 22:04:43 Problem Notes None recorded. Medical Equipment None Reported. Allergies No known drug allergies Vitals Date Recorded Body weight Heart rate Respiratory rate Body temperature Oxygen saturation Oxygen saturation in Arterial blood by Pulse oximetry Systolic And Diastolic Provider Name and Address Organization Details Last Updated DateTime 4 56357.4 2 g 84 /min 18 /min 97.7 [degF] 97 % 97 % 112/68 mm[Hg] Carri Gabriel NP [address] [facility], [address], [place], [address], [facility] 4 09:22:13 Date Recorded Body height Body mass index (BMI) Body weight Heart rate Respiratory rate Body temperature Oxygen saturation Oxygen saturation in Arterial blood by Pulse oximetry Systolic And Diastolic Provider Name and Address Organization Details Last Updated DateTime 4 157.48 cm 23.6 kg/m2 75668.4 2 g 90 /min 18 /min 97.1 [degF] 96 % 96 % 137/83 mm[Hg] Avis Covington MD [address] [facility], [address], [place], [address], [facility] 4 19:03:29 Date Recorded Body height Heart rate Respiratory rate Body temperature Oxygen saturation Oxygen saturation in Arterial blood by Pulse oximetry Systolic And Diastolic Provider Name and Address Organization Details Last Updated DateTime 4 157.48 cm 90 /min 18 /min 97.6 [degF] 97 % 97 % 128/76 mm[Hg] TALIA HOUSTON NP [address] [facility], [address], [place], [address], [facility] 4 15:19:27 Date Recorded Body height Body weight Body mass index (BMI) Heart rate Respiratory rate Body temperature Oxygen saturation Oxygen saturation in Arterial blood by Pulse oximetry Systolic And Diastolic Provider Name and Address Organization Details Last Updated DateTime 4 157.48 cm 56392.4 5 g 22.7 kg/m2 91 /min 16 /min 97.7 [degF] 97 % 97 % 106/70 mm[Hg] Carri Gabriel NP [address] [facility], [address], [place], [address], [facility] 4 10:00:20 Date Recorded Body height Heart rate Respiratory rate Body temperature Oxygen saturation Oxygen saturation in Arterial blood by Pulse oximetry Systolic And Diastolic Provider Name and Address Organization Details Last Updated DateTime 4 157.48 cm 100 /min 18 /min 97.8 [degF] 94 % 94 % 131/79 mm[Hg] TALIA HOUSTON NP [address] [facility], [address], [place], [address], [facility] 4 13:52:59 Social History Question Answer Notes LastModified by Organizat ion Details LastModified Time Tobacco Smoking Status Never Smoker Carri Gabriel NP [address] [facility], [address], [place], [address], [facility] 01/11/2024 09:49:55 Do You Have An [...] 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 [id number] Information not available 01/11/2024 Family History Nothing Reported Notes:Mother cancer Father decreased no problems Medical History No medical history recorded. Gynecological HistoryNo gynecological history recorded. Obstetrics History GPAL:G 0 P 0 0 0 0 Immunizations Vaccine Type Date Status Note Provider Matt e and Address Organization Details Recorded Time Hep B, unspecified formulation 8 completed Mimi Wynn [facility] 01/12/2024 12:31:23 Hep B, unspecified formulation 8 lizeth verdugo [facility] 01/12/2024 12:31:30 Hep B, unspecified formulation 2 completed Mimi Wynn [facility], [facility] 01/12/2024 12:31:37 Tdap 4 completed Mimi Wynn [facility] 01/12/2024 12:31:51 Td(adult) unspecified formulation 6 completed Mimi Wynn [facility] 01/12/2024 12:32:06 Pneumococcal conjugate PCV20, polysaccharide [id number] conjugate, adjuvant, PF 4 completed Mimi Wynn [facility] 01/12/2024 12:35:15 pneumococcal polysaccharide PPV23 5 completed Mimi Wynn [facility] 01/12/2024 12:35:31 influenza, unspecified formulation 2 completed Mimi Wynn [facility] 01/12/2024 12:35:47 influenza, unspecified formulation 3 completed Mimi Wynn [facility] 01/12/2024 12:35:55 Hep A, unspecified formulation 8 completed Mimi Wynn [facility] 01/12/2024 12:36:17 Hep A, unspecified formulation 2 completed Mimi Wynn [facility] 01/12/2024 12:36:24 SARS-COV-2 (COVID-19) vaccine, UNSPECIFIED 1 completed Mimi Wynn [facility] 01/12/2024 12:36:41 SARS-COV-2 (COVID-19) vaccine, UNSPECIFIED 1 completed Mimi Wynn [facility] 01/12/2024 12:36:53 SARS-COV-2 (COVID-19) vaccine, UNSPECIFIED 2 completed Mimi Wynn [facility] 01/12/2024 12:37:05 SARS-COV-2 (COVID-19) vaccine, UNSPECIFIED 3 completed Mimi Wynn [facility] 01/12/2024 12:37:21 SARS-COV-2 (COVID-19) vaccine, UNSPECIFIED 4 completed Mimi verdugo [place] [facility] 01/12/2024 12:37:31 Past Encounters Encounter ID Performer Location Encounter Start Date Encounter Closed Date Diagnosis/Indication Diagnosis SNOMED-CT Code Diagnosis ICD10 Code Diagnosis IMO Codes Diagnosis Note [id number] Carri Gabriel NP [address] [place] [address] 01/11/2024 08:25:19 01/16/2024 08:36:09 Pyelonephritis 13445458 N12 hosp noted ecoli in blood and urine cultures tx with iv abx and transition ed to po cefuroxime 250 mg po bid x 10 more days heremonito rcbc and bmp weekly Bacteremia 0956045 R78.8 1 noted ecoli in blood and urine cultures tx with iv abx and transition ed to po cefuroxime 250 mg po bid x 10 more days heremonito rcbc and bmp weekly Asthenia 35903841 R53.1 PT/OT to eval and treatmonit or Adult fail ure to thrive syndrome 374947217 R62.7 pt with failure to thrive and weakness for approx 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 t ceramic engineer for better nutritiono n ensure tidmonitor Hypomagnesemia 732252926 E83.42 magnesium oxide 400 mg po dailymonit or Gastroesop hageal reflux disease 733589691 K21.9 lansoprazo le 30 mg po dailymonit or Mixed anxi ety and depressive disorder 698425221 F41.8 hydroxyzin e 50 mg cap po bid prn anxietyven lafaxine 150 mg cap po dailygabap entin 100 mg po tid (was decreased in hosp)monit or Seasonal allergy 3528693 04 J30.2 cetirizine 10 mg po dailymonit or Harmful pa ttern of use of alcohol 45910664 F10.10 with cocaine and etoh abusetx with phenobarb protocol, folic acid and thiamine inpthad visual hallucinat ions in hosp now resolvedmo nitor for s/s of etoh withdrawal continue supportive care and encourage abstinence monitor Substance abuse 93687780 F19.10 with cocaine and etoh abusetx with phenobarb protocol, folic acid and thiamine inpthad visual hallucinat ions in hosp now resolvedmo nitor for s/s of etoh withdrawal continue supportive care and encourage abstinence monitor Vitamin deficiency 11787 002 E56.9 vitamin def unspecifie dcontvit d2 1250 mcg po q weekvit b12 1000 mcg po dailymonit or Heart failure 65220439 I 50.9 hx of heart failureunc lear why she was taken off metoprolol in hospmonito r hr and bp closely q shift here for need Hypertensive disorder 38 178525 I10 hx of heart failureunc lear why she was taken off metoprolol succ in hosp( was on 25 mg po qd)monitor hr and bp closely q shift here for need Steatotic liver disease 855068463 K76.0 noted steatoiss of liver with ETOH use hxmonitor lftsdc tylenol with elevated liver enzymesmon itor Thyroid nodule 583777820 E04.1 hx offu outpt as needed Recurrent falls 15496906 2 R29.6 pt has hx of furniture walking and fallsthera py to treat and eval for strength, balance, gait, mobility, safety awarenessw alker usesupport rona caremonito r Fracture o f multiple ribs 7507035 S22.41XS hx of 6th and 7th right rib fracturesp t reports no paincont incentive spirometer no brusing or deformity notedmonit or for sequelae [id number] [facility] [address] 01/16/2024 18:35:58 01/22/2024 09:48:54 Pyelonephritis 34070724 N10 Grew e. coli, same strain, from urine and blood.Cont inue cefuroxime 250 mg BID until 01/19 to complete 2 wk course of abxs.Monit or sxs and labs. Bacteremia 3491894 R78.8 1 As above. Asthenia 12793841 R53.1 Very deconditio [place].Needs PT/OT for strengthen ing, balance, gait training, safety and function.C ontinue fall precaution s.Monitor for safety.Wit h continued falling since here. Needs encouragem ent to use walker ALL THE TIME! Adult fail ure to thrive syndrome 258453476 R62.7 Likely due to EtOH abuse.Enco urage cessation and improved nutrition. Car Starter consult. Hypomagnesemia 658843421 E83.42 Continue magnesium oxide 400 mg qdMonitor levels Gastroesop hageal reflux disease 865174710 K21.9 Continue lansoprazo le 30 mg qdMonitor GI sxs Mixed anxi ety and depressive disorder 020163061 F41.8 Gabapentin was decreased inpt due to concerns about oversedati on, pt is requesting return to previous dose.Will increase to 100 mg BID with 200 mg at bedtime.Co ntinue venlafaxin e 150 mg qd and hydroxyzin e 50 mg BID prn anxietyMon itor mood.Consu lt psych prn Harmful pa ttern of use of alcohol 13302034 F10.10 With hx of withdrawal , had some evidence inpt, txed with phenobarb protocol.W as txed with folic acid and thiamine inpt., but not continued. Will add thiamine 100 mg qd and Folic Acid 1 mg qd.Monitor CBC.Contin ue to encourage cessation. Seasonal allergy 1136057 04 J30.2 Continue cetirizine 10 mg qdMonitor sxs Substance abuse 20376694 F19.10 As above.Also hx of cocaine use.Encour age abstinence . Vitamin deficiency 22132 002 E56.8 Continue ergocalcif jo 50,000 IU weekly and vit b12 1000 mcg qdMonitor levels prn. Heart failure 65320751 I 50.32 In hx, but recent echo was WNL.Appear s euvolemic. Monitor resp. status, fluid status, wts and labs. Hypertensive disorder 38 135278 I10 BP good since here, off meds.Monit or need to restart metoprolol Steatotic liver disease 136443984 K70.30 Hx ofAbd is sl. distended, but imaging inpt did not show any ascites.Solomon d elevated LFTs.No APAP.F/U with GI as outpt. Recurrent falls 21365760 2 R29.6 As above. Fracture o f multiple ribs 7857285 S22.41XS Unclear how old these are.No pain.Monit or Multinodular goiter 2375 53699 E04.2 Seen by endocrine surgeon in 2019.His [...] as an outpt. History of cerebrovascular accident 708915746 Z86.73 Old right lacunar infarct seen on head CT.No sequelae.M onitor Neck pain 68316319 M54.2 Likely after fall last night.No point tenderness .Will start lidocaine patch 12 hrs/day.Mo nitor sxs. [id number] TALIA HOUSTON NP [address] [address] 01/25/2024 15:18:26 02/06/2024 13:24:09 Pyelonephritis 93486224 N10 Grew e. coli, same strain, from urine and blood.Comp leted cefuroxime 250 mg BID on 01/19 to complete 2 wk course of abxs.Clini luba improving. VS and labs stable so far.Monito r sxs and labs. Bacteremia 1053662 R78.8 1 As above. Asthenia 50357201 R53.1 Very deconditio [place].Needs PT/OT for strengthen ing, balance, gait training, safety and function.C ontinue fall precaution s.Monitor for safety.Wit h continued falling since here. Needs encouragem ent to use walker ALL THE TIME! Harmful pa ttern of use of alcohol 68402365 F10.10 With hx of withdrawal , had some evidence inpt, txed with phenobarb protocol.W as txed with folic acid and thiamine inpt., but not continued. Will add thiamine 100 mg qd and Folic Acid 1 mg qd.Monitor CBC.Contin ue to encourage cessation. Adult fail ure to thrive syndrome 632481883 R62.7 Likely due to EtOH abuse.Enco urage cessation and improved nutrition. Car Starter consult. Hypomagnesemia 354203671 E83.42 Mg 1.6Increas ed magnesium oxide 400 mg to bidMonitor levels - repeat next week Gastroesop hageal reflux disease 472412489 K21.9 Continue lansoprazo le 30 mg qdMonitor GI sxs Mixed anxi ety and depressive disorder 991591384 F41.8 Gabapentin was decreased inpt due to concerns about oversedati on, pt is requesting return to previous dose.Incre ased to 100 mg BID with 200 mg at bedtime - batool. well so far.Contin ue venlafaxin e 150 mg qd and hydroxyzin e 50 mg BID prn anxietyMon itor mood.Consu lt psych prn Seasonal allergy 1510311 04 J30.2 Continue cetirizine 10 mg qdMonitor sxs Substance abuse 15895138 F19.10 As above.Also hx of cocaine use.Encour age abstinence . Vitamin deficiency 43773 002 E56.8 Continue ergocalcif jo 50,000 IU weekly and vit b12 1000 mcg qdMonitor levels prn. Heart failure 09832177 I 50.32 In hx, but recent echo was WNL.Appear s euvolemic. Monitor resp. status, fluid status, wts and labs. Hypertensive disorder 38 070060 I10 BP good since here, off meds.Monit or need to restart metoprolol Steatotic liver disease 872792296 K70.30 Hx ofAbd is sl. distended, but imaging inpt did not show any ascites.Solomon d elevated LFTs.No APAP.F/U with GI as outpt. Multinodular goiter 2375 62587 E04.2 Seen by endocrine surgeon in 2019.His [...] do this as an outpt. Recurrent falls 95767388 2 R29.6 As above. Fracture o f multiple ribs 3625560 S22.41XS Unclear how old these are.No pain.Monit or History of cerebrovascular accident 034308665 Z86.73 Old right lacunar infarct seen on head CT.No sequelae.M onitor Neck pain 42123475 M54.2 Likely after fall last night.No point tenderness .Will start lidocaine patch 12 hrs/day.Liban herndon sxs. [id number] Carri Gabriel NP [address] [address] 02/01/2024 09:57:59 02/06/2024 15:07:03 Pyelonephritis 38786040 N10 resolved, improvedGr ew e. coli, same strain, from urine and blood.Comp leted cefuroxime 250 mg BID on 01/19 to complete 2 wk course of abxs.Monit or sxs and labs. Bacteremia 1575208 R78.8 1 As above. Asthenia 96685898 R53.1 Very deconditio [place]. but improving with therapyNee ds PT/OT for strengthen ing, balance, gait training, safety and function.C ontinue fall precaution s.Monitor for safety.Wit h continued falling since here. Needs encouragem ent to use walker ALL THE TIME! Harmful pa ttern of use of alcohol 38121179 F10.10 With hx of withdrawal , had some evidence inpt, txed with phenobarb protocol.W as txed with folic acid and thiamine inpt., but not continued. contthiami ne 100 mg qdFolic Acid 1 mg qd.Continu e to encourage cessation. Adult fail ure to thrive syndrome 507564249 R62.7 Likely due to EtOH abuse. improvingE ncourage cessation and improved nutrition. Car Starter consult for nutritiona l deficienci es Hypomagnesemia 923658990 E83.42 Mg 1.6 now 1.8 improving on supplement scontmagne sium oxide 400 mg to bidMonitor levels - repeat next week Gastroesop hageal reflux disease 497233708 K21.9 Continuela nsoprazole 30 mg qdMonitor GI sxs Mixed anxi ety and depressive disorder 014926191 F41.8 note: Gabapentin was decreased inpt due to concerns about oversedati onwhile at regalIncre ased to 100 mg BID with 200 mg at bedtime - batool. well so far. no s/s of sedationve nlafaxine 150 mg qdhydroxyz ine 50 mg BID prn anxietyMon itor mood.Consu lt psych prn Seasonal allergy 2052310 04 J30.2 Continuece tirizine 10 mg qdMonitor sxs Substance abuse 49497080 F19.10 As above.Also hx of cocaine use.Encour age abstinence . Vitamin deficiency 09010 002 E56.8 Continueer gocalcifer ol 50,000 IU weeklyvit b12 1000 mcg qdMonitor levels prn. Heart failure 42412381 I 50.32 In hx, but recent echo was WNL.Appear s euvolemic. Monitor resp. status, fluid status, wts and labs. Hypertensive disorder 38 160526 I10 BP good since here, off meds.Monit or need to restart metoprolol Steatotic liver disease 695486203 K70.30 seems improvedHx ofAbd is sl. distended, but imaging inpt did not show any ascites.Solomon d elevated LFTs.No APAP.F/U with GI as outpt. Multinodular goiter 2375 77433 E04.2 Seen by endocrine surgeon in 2019.His [...] do this as an outpt. Recurrent falls 33187758 2 R29.6 As above. Fracture o f multiple ribs 0915762 S22.41XS Unclear how old these are. no pain, bruising or deformitie sNo pain.Monit or History of cerebrovascular accident 023029079 Z86.73 Old right lacunar infarct seen on head CT.No sequelae.M onitor [id number] TALIA HOUSTON NP [facility] [address] [place] [address] 02/06/2024 13:37:38 02/12/2024 19:23:35 Pyelonephritis 02412789 N10 E. ColiComple benita cefuroxime 250 mg [...] to decline after dischargeM aintain fluids. Bacteremia 1660480 R78.8 1 As above. Asthenia 75089416 R53.1 Very deconditio [place]. but improving with therapyMee ting goals for d/c home tomorrow with support of family and services.C ontinue fall precaution s.Encourag e pt. to use her walker ALL THE TIME! Harmful pa ttern of use of alcohol 29675535 F10.10 With hx of withdrawal , had some evidence inpt, txed with phenobarb protocol.W as txed with folic acid and thiamine inpt., but not continued. contthiami ne 100 mg qdFolic Acid 1 mg qd.Continu e to encourage cessation. Adult fail ure to thrive syndrome 304512524 R62.7 Likely due to EtOH abuse. improvingE ncourage cessation and improved nutrition. Car Starter consult for nutritiona l deficienci es Hypomagnesemia 907758823 E83.42 Mg 1.6 -> 1.8 -> 1.5continu e magnesium oxide 400 mg to bidMonitor levels as outpt. Gastroesop hageal reflux disease 606837224 K21.9 Continuela nsoprazole 30 mg qdMonitor GI sxs Mixed anxi ety and depressive disorder 612317625 F41.8 note: Gabapentin was decreased inpt due to concerns about oversedati onwhile at regalIncre ased to 100 mg BID with 200 mg at bedtime - batool. well so far. no s/s of sedationCo ntinue:aleksey lafaxine 150 mg qdhydroxyz ine 50 mg BID prn anxietyMon itor mood as outpt. Seasonal allergy 7021984 04 J30.2 Continuece tirizine 10 mg qdMonitor sxs Substance abuse 73839171 F19.10 As above.Also hx of cocaine use.Encour age abstinence . Vitamin deficiency 71010 002 E56.8 Continueer gocalcifer ol 50,000 IU weeklyvit b12 1000 mcg qdMonitor levels prn. Heart failure 43337346 I 50.32 In hx, but recent echo was WNL.Appear s euvolemic. Monitor resp. status, fluid status, wts and labs. Hypertensive disorder 38 781355 I10 BP good since here, off meds.Monit or need to restart metoprolol Steatotic liver disease 799781858 K70.30 seems improvedHx ofAbd is sl. distended, but imaging inpt did not show any ascites.Solomon d elevated LFTs.No APAP.F/U with GI as outpt. Multinodular goiter 2375 51424 E04.2 Seen by endocrine surgeon in 2019.His [...] do this as an outpt. Recurrent falls 12700241 2 R29.6 As above. Fracture o f multiple ribs 5260265 S22.41XS Unclear how old these are. no pain, bruising or deformitie sNo pain.Monit or History of cerebrovascular accident 790134670 Z86.73 Old right lacunar infarct seen on head CT.No sequelae.M onitor Health Concerns Section Related Observation LastModified by Organization Detai ls LastModified Time None Recorded Concern Status LastModified by Organization Details LastModified Time None Recorded Advance Directives Directive Y: Payers Insurance Date Sequence Insurance Name Policy Number Policy Lyn Covered Member ID Lyn Member ID Guarantor Name 03/21/2024 1 MEDICARE B-[place]: [facility] [employer] Nubia Bell [id number] Nubia Bell Notes Date Note Type Note Provider Name and Address Organization Details Recorded Time 4 text/html Pt is seen for an initial intake. Nubia is a 63 yo female with pmh HTN, GERD, HF, ETOH use with hx of withdrawal, anxiety, depression and multinodular thyroid fell out of bed and presented to [facility] ED on 01/05/24-01/10/24 found to have acute [...] full code 01/10/24 Carri Gabriel, GRETA [address] [facility], [address], [place], [address], [facility] 01/11/2024 10:30:51 4 text/html This is a 63 yo woman with EtOH use disorder who is here for rehab after an acute hospitalization for pyelonephritis.She presented to the [facility] ED on 01/04 with c/o weakness, fatigue, [...] plans to explore recovery coaching and possibly [employer] or other non step support groups.Hypomagnesemia repleted [...] depression and multinodular goiter. Avis Covington MD [address] [place] [address], [address], [place], [address], [facility] [employer] [facility] 01/16/2024 22:04:59 4 text/html Nubia is seen today for an acute visit. This is a 63 yo woman with EtOH use disorder who is here for rehab after an acute hospitalization for pyelonephritis.She [facility] [facility] on 01/04 after falling OOB and [...] depression and multinodular goiter. TALIA HOUSTON, GRETA [address] [place] [address], [address], [place], [address], [facility] [employer] [facility] 01/25/2024 15:39:44 4 text/html Pt is seen today for an acute visit. Her PMH includes HTN, GERD, CHF pEF, ETOH use disorder with hx of withdrawal, anxiety, depression and multinodular goiter. Nubia is a 63 yo female who presented to [facility] on 01/05/24-01/10/24 found to have acute pyelonephritis. It was felt she would benefit from rehab for generalized weakness, failure to thrive with poor nutrition, and therapy. While here at [facility] Nubia is making gains and doing [...] cefuroxime in hosp. Carri Gabriel NP [address] [facility], [address], [place], [address], [facility] 02/01/2024 11:47:10 4 text/html Nubia is seen today for discharge.She is planning on going home tomorrow with support of family and services. She is a 63 yo female admitted to [facility] from [facility] on 01/09 for continued care and rehab after a hospitalization related due pyelonephritis. She presented to [facility] 01/04 with weakness and falls. Also reported [...] plans to explore recovery coaching and possibly S[employer] or other non step support groups.Hypomagnesemia repleted [...] and multinodular goiter. TALIA HOUSTON NP [address] [facility], [address], [place], [address], [facility] 02/06/2024 14:26:41 OBGyn Episode No OBEpisode recorded.
--- OUTSIDE RECORDS SUMMARY | 2025-06-18 19:29 | XMS_ITS | Data Portability ---
Author Organization [facility] Medical [facility] Address [address] [place] [phone] Care Team Providers Care Pipe Fitter [employer] Sprinkler Systems Name Role Phone Unavailable Referring Provider [phone] HIM CCA OTHER Assessment No assessment recorded. Plan of Treatment Reminders Order Date Submit Date Provider Last Modified By Organization Details Last Modified Time Details Appointments None recorded. Lab BMP, serum or plasma [address], [address] 09:43:40 Referral None recorded. Procedures None recorded. Surgeries None recorded. Imaging electrocard iogram [address], [phone] 3 05:00:47 Medication Orders None recorded. Patient TargetsNo targets recorded. Patient InstructionsNo instructions recorded. Reason for Referral None Reported. Results Created Date Observation Date Name Description Value Unit Range Abnormal Flag Note LastModifiedBy Organization Detail LastModifiedTime 03/02/20 23 03/03/2023 elect valentino diogr am No observ ation record ed. [email or web address] [address], [address] 03/03/2023 09:41:28 Result Notes None recorded. Medical [...] % 90 /min 147/85 mm[Hg] Not Available [employer] 4 16:43:22 Date Recorded Oxygen saturation Oxygen saturation in Arterial blood by Pulse oximetry Heart rate Respiratory rate Body temperature Systolic And Diastolic Provider Name and Address Organization Details Last Updated DateTime 3 96 % 96 % 103 /min 20 /min 97.8 [degF] 140/100 mm[Hg] Not Available [employer] 3 20:33:31 Social History None recorded. Functional Status None recorded. Mental Status None recorded. Family History Nothing Reported. Medical History No medical history recorded. Gynecological HistoryNo gynecological history recorded. Obstetrics History GPAL:G 0 P 0 0 0 0 Past Encounters Encounter ID Performer Location Encounter Start Date Encounter Closed Date Diagnosis/Indication Diagnosis SNOMED-CT Code Diagnosis ICD10 Code Diagnosis IMO Codes Diagnosis Note [id number] [facility] [address] [place] [phone] 03/02/2023 18:12:52 03/02/2023 22:31:16 Alcohol intoxication [id number] F10.929 Patient does not wish to go to ED for evaluation at this time. Unable to get IV placed for fluids, but BMP is stable. Low BUN and Mortgage Counselor in setting of malnutriti on and chronic alcohol use. Encouraged to seek alcohol detox treatment at ED. Patient precontemp lative. Discussed hydration in setting of alcohol use. Mild dehydration [id number] 119 108 E86.0 Normotensi ve to hypertensi ve. Unable to get IV placed [place] [id number] [facility] [address] [place] [phone] 11/28/2023 16:43:20 11/28/2023 19:18:58 Alcohol intoxication [id number] F10.929 This 63-year-ol d female called instED [...] Lyn Member ID Guarantor Name 03/03/2024 1 [facility] - DOS ON OR AFTER 2022 - DUAL ELIGIBLE - LONGTERM OPTIONS AND ONE CARE (MEDICARE REPLACEMENT/ADV ANTAGE - HMO) Nubia Bell [id number] Nubia Bell Notes Date Note Type Note [...] .................... .................... .................... .................... .................... .................... . Program Assistant Note From Cary Ashby: Community Program Assistant Michelel Ashby CCA1 dispatched to a yellow for a 62 yof C/O dehydration. Pt reported to [facility] that she had been drinking wine. Upon [...] was receiving care from a psych provider. [facility] consulted; 4X IV attempt w/ no success, BMP [facility] EKG and BMP results were [...] . Disposition: Fulfilled Moises Vizcaino MD [address] [facility],[address], [place], [address], [employer] 03/02/2023 21:04:12 11/28/2023 text/html ROS as noted in the [facility] CRC Nurse Triage Notes (Yenifer Parsons): Reason [...] Zara LENZ Verified name//address Michi Ratliff MD [address] [place] [address],[address], [place], [address], [employer] 11/28/2023 16:49:27 OBGyn Episode No OBEpisode recorded.
--- OUTSIDE RECORDS SUMMARY | 2025-06-18 19:29 | XMS_ITS | Encounter Summary ---
Author Organization [employer] Address [address] [facility] [address] [place] [address] Care Team Providers Care Supervisor Paper Testing Name Role Phone Le Haddad DO Primary Care Provider [phone] Encounter Details Date Type Department Care Team (Late st Contact Info) Description 09/14/2022 Orders Only [facility] [address] [place], [place] [phone] Jessica Benjamin LPN Social History Tobacco Use [...] Blood Count 5.5 4.8 - 10.8 X10*3/uL [facility] Red Blood Count 4.39 4.20 - 5.50 X10*6/uL [facility] Hemoglobin 14.8 12.0 - 16.0 g/dl [facility] Hematocrit 43.9 37.0 - 47.0 % [facility] Mean Corpuscular Volume 100.0(H) 80.0 - 98.0 fL [facility] Mean Corpuscular Hemoglobin 33.7(H) 27.0 - 33.0 pg [facility] Mean Corpuscular HGB Conc 33.7 31.0 - 35.0 g/dl [facility] Red Cell Distribution Width 13.1 11.0 - 16.0 % [facility] Platelet Count 181 160 - 400 X10*3/uL [facility] Mean Platelet Volume 9.5 9.4 - 12.3 fL [facility] Neutrophils Percent Auto 38.5(L) 45 - 73 % [facility] Imm Gran Pct Auto 0.7(H) 0.0 - 0.4 % [facility] Lymphocytes Percent Auto 49.0(H) 20 - 40 % [facility] Monocytes Percent Auto 9.3 2 - 11 % [facility] Eosinophils Percent Auto 1.6 0 - 4 % [facility] Basophils Percent Auto 0.9 0 - 2 % [facility] NRBC Pct Auto 0.0 0.0 - 0.2 /100WBC [facility] Neutrophils Absolute Auto 2.1 2.0 - 8.3 x10*3/uL [facility] Imm Gran Abs Auto 0.04(H) 0.00 - 0.03 X10*3/uL [facility] Lymphocytes Absolute Auto 2.7 1.2 - 4.9 X10*3/uL [facility] Monocytes Absolute Auto 0.5 0.1 - 1.2 X10*3/uL [facility] Eosinophils Absolute Auto 0.1 0.0 - 0.4 X10*3/uL [facility] Basophils Absolute Auto 0.1 0.0 - 0.2 X10*3/uL [facility] NRBC Abs Auto 0.000 0.0 - 0.012 X10*3/uL [facility] 02/14/2023 7:45 PM EDT 02/14/2023 7:48 PM EDT [facility] External Provider LAB BLO OD ORDERABLES Final Result [facility] [address] [place] [address] [phone] * Drug Monitoring, Panel 1, Screen, Urine (02/14/2023 7:10 PM EDT) Opiate Screen Urine Not Detected Not Detect [facility] Comment:Opiate cut-off is 30 0 ng/mL.Positive results are unconfirmed and should not be used fornon-medical purposes. Barbiturates, Urine Not Detected Not Detect [facility] Comment:Barbiturate cut-off is 200 ng/mL.Positive results are unconfirmed and should not be used fornon-medical purposes. Phencyclidine Screen Urine Not Detected Not Detect [facility] Comment:Phencyclidine cut-of f is 25 ng/mL.Positive results are unconfirmed and should not be used fornon-medical purposes. Amphetamine Screen Urine Not Detected Not Detect [facility] Comment:Amphetamine cut-off is 1000 ng/mL.Positive results are unconfirmed and should not be used fornon-medical purposes. Benzodiazepines Screen Urine Not Detected Not Detect [facility] Comment:Benzodiazepine cut-o ff is 200 ng/mL.Positive results are unconfirmed and should not be used fornon-medical purposes. Cocaine Screen Urine Not Detected Not Detect [facility] Comment:Cocaine cut-off is 3 00 ng/mL.Positive results are unconfirmed and should not be used fornon-medical purposes. Cannabinoid Screen Urine Not Detected Not Detect [facility] Comment:Cannabinoid cut-off is 50 ng/mL.Positive results are unconfirmed and should not be used fornon-medical purposes. FENTANYL URINE Not Detected Not Detect [facility] Comment:Fentanyl cut-off is 1 ng/mL.Positive results are unconfirmed and should not be used fornon-medical purposes. 02/14/2023 7:10 PM EDT 02/14/2023 7:26 PM EDT [facility] External Provider LAB URI NE ORDERABLES Final Result [facility] [address] [place] [address] [phone] documented in this encounter Visit Diagnoses Not on filedocumented in this encounter Care Teams Supervisor Paper Testing Relationship Specialty Start Date End Date Le Haddad DO [address] [place] [phone] PCP - General Family Medicine 05/18/15 [employer] [facility] 03/26/25 documented as of this encounter
--- OUTSIDE RECORDS SUMMARY | 2025-06-18 19:29 | XMS_ITS | Encounter Summary ---
Author Organization [employer] Address [address] [facility] 7[address] [place] [address] Care Team Providers Care Squeak Rattle And Leak Repairer Name Role Phone Le Haddad DO Primary Care Provider + [phone] Reason for Visit * Reason Comments Med Refill Encounter Details Date Type Department Care Team ([facility] st Contact Info) Description 04/15/2024 Refill [facility] [address] [place], [place] [phone] Le Haddad DO [address] [place] [address] Neuropathy Social History Tobacco Use Types Packs/Day [...] documented as of this encounter Care Teams Squeak Rattle And Leak Repairer Relationship Specialty Start Date End Date Le Haddad DO [address] [place] [phone] PCP - General Family Medicine 05/18/15 [facility] 03/26/25 documented as of this encounter
--- OUTSIDE RECORDS SUMMARY | 2025-06-18 19:29 | XMS_ITS | Encounter Summary ---
Author Organization [employer] Address [address] [facility] [address] [place] [address] Care Team Providers Care Machinery Mechanic Name Role Phone Le Haddad DO Primary Care Provider + [phone] Reason for Visit * Reason Comments Med Refill Encounter Details Date Type Department Care Team ([facility] st Contact Info) Description 04/22/2024 Refill [facility] [address] [place], [place] [phone] Le Haddad DO [address] [place] [address] Neuropathy Social History Tobacco Use Types Packs/Day [...] documented as of this encounter Care Teams Machinery Mechanic Relationship Specialty Start Date End Date Le Haddad DO [address] [place] [phone] PCP - General Family Medicine 05/18/15 [employer] [facility] 03/26/25 documented as of this encounter
--- OUTSIDE RECORDS SUMMARY | 2025-06-18 19:29 | XMS_ITS | Encounter Summary ---
Author Organization [employer] Address [address] [facility] [address]t [place] [address] Care Team Providers Care Juke Box Mechanic Name Role Phone Le Haddad DO Primary Care Provider + [phone] Reason for Visit * Reason Onset Date Comments Reschedule 08/24/2023 Encounter Details Date Type Department Care Team ([facility] st Contact Info) Description 08/24/2023 Telephone [facility] [address] [place] [address] Le Haddad DO [address] [place] [address] Reschedule Social History Tobacco Use Types Packs/Day [...] documented as of this encounter Care Teams Juke Box Mechanic Relationship Specialty Start Date End Date Le Haddad DO [address] [place] [id number] PCP - General Family Medicine 05/18/15 [facility] 03/26/25 documented as of this encounter
[2025-06-18 19:59] LABS: Appearance Urine Clear; Glucose Urine UA Negative (Negative); PH 6.0 (5.0-9.0); Specific Gravity - Urine >= 1.030 (1.005-1.025); UMIC TRIGGER UACC YES
[2025-06-18 20:40] VITALS: BP 124/61; PULSE 87; RESP 16; TEMP 36.6; O2SAT 97
[2025-06-18] MEDS: Magnesium Hydrox/Alum Hydrox 30 ML ORAL.SUSP PO (20:48)
[2025-06-18] MEDS: Lidocaine HCl Viscous 2 % 15 ML SOLUTION MUCOUS MEM (20:48)
[2025-06-18] MEDS: Potassium Bicarbonate/Cit AC 25 MEQ TABLET.EFF PO (21:17)
[2025-06-18] MEDS: Magnesium Sulfate/H2O 2 GM/50 ML PIGGYBACK IV (21:18)
[2025-06-18 22:23] VITALS: BP 113/55; PULSE 82; RESP 16; TEMP 36.8; O2SAT 97
--- NOTE | 2025-06-18 22:23 | PM.IMHP ---
History of Present Illness Date of Service: 06/18/25 Attending physician on admission: Prateek Johns Chief Complaint: Dark urine Nubia Bell is a 64 years old woman with past medical history significant for EtOH abuse, GERD, essential hypertension, HFpEF and peripheral neuropathy presents to the emergency department complaining of multiple symptoms including: Dark urine, abdominal distention, on and off chest pain and shortness on breath with exertion. She denied abdominal pain but experiences cramps similar to menstrual cramps. She did not report headache, confusion, pain with urination, black stool or bloody more vomiting. She underwent an EGD by Dr. Ramos on March of this year and was found to have gastric polyp, GERD and hiatal hernia. She continues to drink 1 bottle of wine daily. Last alcoholic drink was this morning. She mentioned that at the beginning of this month she was diagnosed with UTI and was prescribed a course of amoxicillin but she did not complete it because it was causing diarrhea. Denied ongoing diarrhea, nausea or vomiting. Denied tobacco smoking or illicit drug use. In the ED, she was found to have stable vital signs. WBC count is 4.6, hemoglobin 10.2 and platelets 102. MCV is 110.8. INR is 1.7. She has hypomagnesemia and hypokalemia, 1.5 and 3.2, respectively. BUN is 4 and creatinine 0.42. CO2 is 17. LFTs are elevated: Bilirubin is 10.7. Ammonia level is 50. ETOH level is 85. Abdominal pelvis CT scan with IV contrast showed cholelithiasis, segmental more thickening of the ascending colon, colitis versus carcinoma, small amount of ascites, persistent gastric wall thickening and a small paraesophageal hernia. ED tx: Thiamine 100 mg IV, folic acid 1 g IV, LR 1 L bolus, Maalox 30 mL p.o., Klor-Con 25 mEq p.o., magnesium sulfate 2 g IV Review of Systems Review of Systems: All 12 systems were reviewed and normal except as noted in HPI. [facility] Medical History Alcohol use disorder, severe, dependence Alcohol use disorder Alcoholic steatohepatitis Myocardial infarct Alcohol use disorder Multinodular thyroid Anxiety CHF (congestive heart failure) ETOH abuse Family History Mother Cancer Father No problems noted. Surgical History History of esophagogastroduodenoscopy (EGD) Hx of colonoscopy Hx of hysterectomy Social History Household Members: Friend(s) Household Members Other:: roommate Housing: House Do you presently have visiting nurse or other home services: No Alcohol intake: current Alcohol intake frequency: 3 or more drinks per day Alcohol type: wine Patient Tobacco Use Status: Never used Tobacco Smoked in Last 30 Days: No Second Hand Smoke Exposure: Yes Use of substances other than those prescribed or required for medical reasons: No Substance Use Type: Crack/Cocaine Advance Directives: Yes Advance Directives on File: Yes Advance Directives Date on File: 07/22/23 service: No Current occupational status: disabled Meds Allergies Allergy/AdvReac Type Severity Reaction Status Date / Time No Known Allergies (No Known Allergy Verified 06/18/25 16:22 Allergies*) Active Medications: Current Medications Acetaminophen (Acetaminophen 325 Mg Tablet) 650 mg PO Q6H PRN PRN Reason: Pain, Mild 1-3,fever,headache Calcium Carbonate (Calcium Carbonate 750 Mg Tab.Chew) 750 mg PO Q4H PRN PRN Reason: Heartburn Folic Acid (Folic Acid 1 Mg Tablet) 1 mg PO DAILY ADELIA Magnesium Hydroxide (Milk Of Magnesia 30 Ml Oral.Susp) 30 ml PO DAILY PRN PRN Reason: Constipation Melatonin (Melatonin 3 Mg Tablet) 6 mg PO BEDTIME PRN PRN Reason: Insomnia Multivitamins/Vitamin C (Multivitamin Tablet) 1 tab PO DAILY ADELIA Sodium Chloride (0.9 % Sodium Chloride Flush 3 Ml Syringe) 3 ml IVFLUSH QSHIFT [facility] Home Medications ?Medication ?Instructions ?Recorded ?Confirmed ?Last Taken ?Type carvedilol 3.125 mg tablet 3.125 mg PO BID 03/20/25 06/05/25 Unknown History gabapentin 300 mg capsule 300 mg PO TID PRN Pain 03/20/25 06/05/25 Unknown History lansoprazole 30 mg capsule,delayed 30 mg PO DAILY@0630 03/20/25 06/05/25 Unknown History release vibegron 75 mg tablet (Gemtesa) 75 mg PO DAILY 06/19/25 06/19/25 Unknown History Physical Exam Vital Signs and Narrative: Vital Signs: Last Vital Signs Temp 97.8 F 06/18/25 20:40 Pulse 87 06/18/25 20:40 Resp 16 06/18/25 20:40 BP 124/61 06/18/25 20:40 Pulse Ox 97 06/18/25 20:40 O2 Del Method Room Air 06/18/25 20:40 BMI result Body Mass Index 23.4 General: Alert, oriented, in no acute distress. Looks chronically ill. Afebrile. Disheveled. HEENT: Head normocephalic, atraumatic. PER, EOMI. Icteric sclerae, conjunctiva clear. Oropharynx without erythema or exudate. Dry oral mucosa. Neck: Supple, no lymphadenopathy, or JVD. Heart: RRR, no murmurs, rubs or gallops. Lungs: Clear to auscultation bilaterally. No wheezes, rales, or rhonchi. Normal respiratory effort. Abdomen: Soft, distended, positive fluid wave, non tenderness, normoactive bowel sounds. Extremities: No calf tenderness bilaterally, no swelling Musculoskeletal: Full range of motion. No joint swelling, deformity, or tenderness. Generalized muscle atrophy. Skin: Dry. Jaundice Neurologic: Alert & oriented x4. Moving all extremities spontaneously. Normal speech. Psychological: Depressed mood and affect. Thought process coherent. Results Labs 06/19/25 03:47 06/19/25 03:47 Labs: Laboratory Results - last 24 hr 06/18/25 06/18/25 06/18/25 17:00 17:01 17:47 MCV 110.8 H MCH 39.2 H MCHC 35.4 H RDW 19.9 H Plt Count 102 L MPV 10.3 Immature Gran % (Auto) 1.7 H Neut % (Auto) 66.1 Lymph % (Auto) 21.3 [place] % (Auto) 9.7 Eos % (Auto) 0.6 Baso % (Auto) 0.6 Lymph # (Auto) 1.0 L [place] # (Auto) 0.5 Eos # (Auto) 0.0 Baso # (Auto) 0.0 Abs Immat Gran (auto) 0.08 H Absolute Neuts (auto) 3.1 Absolute Nucleated RBC 0.020 H Nucleated RBC % (auto) 0.4 H Smear Tech's Comments VERIFIED PT 19.1 H D INR 1.7 H Anion Gap 24 H Estim Creat Clear Calc 115.3 Estimated GFR > 60 Random Glucose 81 Calcium 9.1 Magnesium 1.5 L Total Bilirubin 10.7 H AST 243 H ALT 46 H Alkaline Phosphatase 168 H Total Protein 7.1 Albumin 3.7 Lipase 38 Beta-Hydroxybutyrate 8.65 H Urine Color Urine Appearance Urine pH Ur Specific Foster Urine Protein Urine Glucose (UA) Urine Ketones Urine Blood Urine Nitrite Ur Leukocyte Esterase Urine RBC Urine WBC Ur Squamous Epith Cells Urine Bacteria Hyaline Casts Ethyl Alcohol 85 06/18/25 19:52 MCV MCH MCHC RDW Plt Count MPV Immature Gran % (Auto) Neut % (Auto) Lymph % (Auto) [place] % (Auto) Eos % (Auto) Baso % (Auto) Lymph # (Auto) [place] # (Auto) Eos # (Auto) Baso # (Auto) Abs Immat Gran (auto) Absolute Neuts (auto) Absolute Nucleated RBC Nucleated RBC % (auto) Smear Tech's Comments PT INR Anion Gap Estim Creat Clear Calc Estimated GFR Random Glucose Calcium Magnesium Total Bilirubin AST ALT Alkaline Phosphatase Total Protein Albumin Lipase Beta-Hydroxybutyrate Urine Color Dark Yellow Urine Appearance Clear Urine pH 6.0 Ur Specific Foster >= 1.030 H Urine Protein Trace Urine Glucose (UA) Negative Urine Ketones >=160 Urine Blood Negative Urine Nitrite Negative Ur Leukocyte Esterase Trace H Urine RBC 0-2 Urine WBC 0-5 Ur Squamous Epith Cells 0-2 Urine Bacteria None Seen Hyaline Casts 0-2 Ethyl Alcohol Assessment and Plan (1) Alcoholic liver failure: Status: Acute (2) Ascites: Qualifiers: Ascites type: due to alcoholic cirrhosis Qualified Code(s): K70.31 - Alcoholic cirrhosis of liver with ascites Status: Acute Plan Nubia Bell is a 64 y/o woman who presents with: Alcoholic liver failure, worsening. Obtain abdominal Doppler to assess for portal venous thrombosis -per production maintenance technician GI recommendations. Patient advised to abstain from alcohol consumption. Hepatitis panel and GGT obtained. MELD score 21. Child-Hernandez score class B. MDF =41.5. Start prednisone. Fall precautions -pt educated. Nutrition consult. Ascites due to liver cirrhosis/portal hypertension. No abdominal pain or fever. IR consult for paracentesis if appropriate. Segmental moderate thickening ascending colon, colitis versus carcinoma. GI consult. Cholelithiasis. Normal lipase. No abdominal pain or tenderness. Macrocytic anemia. Anemia workup. No history of esophageal varices. Continue to monitor. Hypomagnesemia. Replete as needed. Continue to monitor. GERD. Continue PPI. Essential hypertension. Continue carvedilol. HFpEF/alcoholic vs takotsubo. Last echo 2022 showed normal LV. No acute symptoms. Abdomen CT showed no effusions. Lungs clear. Alcohol abuse. Thiamine, folic acid and multivitamins. Phenobarbital as needed. Social work and addiction medicine consult. Code status: Full DVT prophylaxis: SCDs only due to thrombocytopenia Patient will need hospitalization for worsening liver failure treatment with steroids and evaluation by subspecialty. This documentation was generated using dictation software; minor spreading or production artist errors may be present. Quality Stroke Does the patient have a stroke diagnosis?: No VTE Prior VTE?: No VTE Risk Level:: Medical - moderate - high VTE Device Contraindication: N/A - Device Ordered VTE Drug Contraindication: Treatment Not Indicated
[2025-06-18 22:28] LABS: Ammonia 50 umol/L (13-55)
[2025-06-18 22:42] LABS: Gamma Glutamyl Transpeptidase 1410 U/L (7-33)
--- NOTE | 2025-06-19 00:05 | PC.NURSE ---
was made aware of pt request for her bladder med as well as something for nausea. orders will be placed chart per
[2025-06-19] MEDS: 0.9 % Sodium Chloride Flush 3 ML SYRINGE IVFLUSH ×2 (00:25→09:32)
[2025-06-19 04:33] LABS: MANUAL DIFF FLAG NO
[2025-06-19 04:36] LABS: Hematocrit 26.2 % (37.0-47.0); Hemoglobin 9.2 g/dl (12.0-16.0); Imm Gran Abs Auto 0.10 X10*3/uL (0.00-0.03); Imm Gran Pct Auto 3.0 % (0.0-0.4); Lymphocytes Absolute Auto 0.5 X10*3/uL (1.2-4.9); Mean Corpuscular HGB Conc 35.1 g/dl (31.0-35.0); Mean Corpuscular Hemoglobin 38.8 pg (27.0-33.0); NRBC Abs Auto 0.000 X10*3/uL (0.0-0.012); NRBC Pct Auto 0.0 /100WBC (0.0-0.2); Red Blood Count 2.37 X10*6/uL (4.20-5.50); White Blood Count 3.4 X10*3/uL (4.8-10.8)
[2025-06-19 04:46] LABS: Mean Corpuscular Volume 110.5 fL (80.0-98.0); Platelet Count 89 X10*3/uL (160-400)
[2025-06-19 04:53] LABS: HBS Num1 0.00 mIU/mL (0-7.99); HBc Num1 0.14 S/CO (0.00-0.79); HBsAGNum1 0.39 S/CO (0.00-0.99); Hepatitis A Antibody IgM 0.30 Index (0-0.79); Hepatitis B Surface Antigen Negative (Negative); ~HepC Num1 0.11 S/CO (0.00-0.79); ~Hepatitis A Antibody IgM Nonreactive (Nonreactive); ~Hepatitis B Surface Antibody NONREACTIVE (Nonreactive); ~Hepatitis C Antibody Nonreactive (Nonreactive)
[2025-06-19 04:57] LABS: Alanine Aminotransferase 40 U/L (0-31); Albumin Level 3.3 g/dL (3.5-5.0); Anion Gap 27 (12-20); Aspartate Amino Transferase 212 U/L (5-31); Blood Urea Nitrogen 4 mg/dL (9-16); Calcium 8.7 mg/dL (8.4-10.2); Carbon Dioxide 15 mmol/L (22-29); Chloride 105 mmol/L (96-108); Creatinine Clr Calc Pharmacy 124.2; Estimated Glomerular Filt Rate > 60; Magnesium 1.9 mg/dL (1.6-2.6); Potassium 3.6 mmol/L (3.3-5.1); Sodium 143 mmol/L (135-145); Total Protein 6.5 g/dL (6.5-8.0)
[2025-06-19 04:59] LABS: Alkaline Phosphatase 147 U/L (39-117)
[2025-06-19 06:25] VITALS: BP 112/71; PULSE 94; RESP 13; O2SAT 97
--- NOTE | 2025-06-19 07:27 | P.CNGI_ITS ---
History of Present Illness Data of Consult Service Date: 06/19/25 Requesting physician: Prateek Johns Primary Care Provider: DO CAROL Solis Reason for consult: Liver failure, marked hyperbilirubinemia 64 YF with EtOH abuse, GERD, essential hypertension, HFpEF and peripheral neuropathy [place] [facility] [place] complaining of multiple symptoms - dark urine, abdominal distention, on and off chest pain and shortness on breath with exertion. She denied abdominal pain but experiences cramps similar to menstrual cramps. Pt denied headache, confusion, pain with urination, black stool or bloody stools, nausea or vomiting. She continues to drink 1 bottle of wine daily. Last alcoholic drink was this morning. She mentioned that at the beginning of this month she was diagnosed with UTI and was prescribed a course of amoxicillin but she did not complete it because it was causing diarrhea. Denied ongoing diarrhea, nausea or vomiting. Denied tobacco smoking or illicit drug use. Pt admits to drinking ETOH since her teenage years and denies smoking. She reports going through detox and rehab program followed by relapse. No known cirrhosis and last EGD in 2014 showed esophagitis but no varices. Pt has a past hx of NM and has a hx of chronic chest pain for the past year of unclear etiology. She denies a history of loud snoring or sleep apnea. Pt denies any NSAID or steroid use. Last drink just prior to admission. Pt admits to taking gabapentin as needed for neuropathy. 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 She lives with her ex-boyfriend, his son and another room mate. FAMILY HISTORY: Positive for alcoholism in her mom and sister. She denies known history of liver disease in her family, known history of colon polyps or GI malignancy. In the ED, she was found to have stable vital signs. Labs showed WBC count is 4.6, hemoglobin 10.2 and platelets 102. MCV is 110.8. INR is 1.7. She had hypomagnesemia and hypokalemia, 1.5 and 3.2, respectively. BUN is 4 and creatinine 0.42. CO2 is 17. LFTs were elevated: Bilirubin is 10.7. Ammonia level is 50. ETOH level is 85. Abdominal pelvis CT scan with IV contrast showed cholelithiasis, segmental more thickening of the ascending colon, colitis versus carcinoma, small amount of ascites, persistent gastric wall thickening and a small paraesophageal hernia. ED tx: Thiamine 100 mg IV, folic acid 1 g IV, LR 1 L bolus, Maalox 30 mL p.o., Klor-Con 25 mEq p.o., magnesium sulfate 2 g IV 06/18/[address] SCAN SHOWED: 1. Hepatic steatosis and cirrhosis. 2. Cholelithiasis. 3. Segmental mural thickening of the ascending colon; colitis versus carcinoma. 4. Small amount of ascites. 5. Persistent gastric wall thickening; artifact of the decompression versus gastritis. 6. Small paraesophageal hernia. 03/21/25 EGD SHOWED: Endoscopy Findings: ESOPHAGUS: Small hiatal hernia. Severe esophagitis involving the entire esophagus with ulcerations, white exudate and denuded mucosa Bxed for histology, HSV and CMV cultures and brushings were obtained to check for Lilian esophagitis. STOMACH: Diffuse gastritis and multiple gastric polyps DUODENUM: Normal No blood or active bleeding seen in the UGI tract during EGD. Episode of hematemesis likely from severe esophagitis/MW tear which has healed. Plan: 1. Start a cardiac diet - ordered 2. Follow CBC and LFTs daily. 3. I will contact the patient with biopsy and culture results Above findings were reviewed with the patient. BIOPSIES SHOWED: A. Gastric antrum, biopsy: Gastric antral mucosa with mild reactive changes and focal minimal chronic inactive inflammation; negative for intestinal metaplasia and dysplasia. B. Gastric polyps, biopsy: Fundic gland polyps with focal minimal chronic inactive inflammation; negative for intestinal metaplasia and dysplasia. C. Esophagus, biopsy: Squamous mucosa with rare neutrophils, scant hyperkeratosis and parakeratosis, and superficial epithelial necrosis with bacteria; no columnar mucosa present (see comment). Comment: (A and B): Immunostains for H. pylori were negative. (C): Appearances suggest esophagitis dissecans superficialis and clinical correlation is necessary Review of Systems 2 Review of Systems: Yes all other systems are reviewed and are negative [facility] Past Medical History Medical History Alcohol use disorder, severe, dependence Alcohol use disorder Alcoholic steatohepatitis Myocardial infarct Alcohol use disorder Multinodular thyroid Anxiety CHF (congestive heart failure) ETOH abuse Family History Family History Mother Cancer Father No problems noted. Surgical History Surgical History History of esophagogastroduodenoscopy (EGD) Hx of colonoscopy Hx of hysterectomy Social History Social History Household Members: Significant Other Household Members Other:: roommate Housing: Apartment Do you presently have visiting nurse or other home services: No Alcohol intake: current Alcohol intake frequency: 3 or more drinks per day Alcohol type: wine Patient Tobacco Use Status: Never used Tobacco Second Hand Smoke Exposure: Yes Substance Use Type: Crack/Cocaine Advance Directives Date on File: 07/22/23 service: No Current occupational status: disabled Meds Allergies Allergy/AdvReac Type Severity Reaction Status Date / Time No Known Allergies (No Known Allergy Verified 06/18/25 16:22 Allergies*) Active Medications: Current Medications Acetaminophen (Acetaminophen 325 Mg Tablet) 650 mg PO Q6H PRN PRN Reason: Pain, Mild 1-3,fever,headache Calcium Carbonate (Calcium Carbonate 750 Mg Tab.Chew) 750 mg PO Q4H PRN PRN Reason: Heartburn Folic Acid (Folic Acid 1 Mg Tablet) 1 mg PO DAILY [facility] Magnesium Hydroxide (Milk Of Magnesia 30 Ml Oral.Susp) 30 ml PO DAILY PRN PRN Reason: Constipation Melatonin (Melatonin 3 Mg Tablet) 6 mg PO BEDTIME PRN PRN Reason: Insomnia Multivitamins/Vitamin C (Multivitamin Tablet) 1 tab PO DAILY [facility] Non-Formulary Medication (Vibegron [Gemtesa]) 75 mg PO DAILY [facility] Ondansetron HCl (Ondansetron Hcl 4 Mg/2 Ml Vial) 4 mg IVPUSH Q6H PRN PRN Reason: Nausea and Vomiting Last Admin: 06/19/25 00:24 Dose: 4 mg Pantoprazole Sodium (Pantoprazole Sodium 40 Mg/10 Ml Vial) 40 mg IVPUSH DAILY@0630 [facility] Last Admin: 06/19/25 06:05 Dose: 40 mg Prednisone (Prednisone 20 Mg Tablet) 40 mg PO Q24H ADELIA Stop: 07/16/25 22:59 Last Admin: 06/18/25 23:41 Dose: 40 mg Sodium Chloride (0.9 % Sodium Chloride Flush 3 Ml Syringe) 3 ml IVFLUSH QSHIFT [facility] Last Admin: 06/19/25 00:25 Dose: 3 ml Home Medications ?Medication ?Instructions ?Recorded ?Confirmed ?Last Taken ?Type omeprazole 20 mg tablet,delayed 20 mg PO DAILY@0630 06/19/25 06/17/25 History release vibegron 75 mg tablet (Gemtesa) 75 mg PO DAILY 5 06/19/25 Unknown History Physical Exam 2 Vital Signs: Vital Signs: Last Vital Signs Temp 98.3 F 06/18/25 22:23 Pulse 94 06/19/25 06:25 Resp 13 06/19/25 06:25 BP 112/71 06/19/25 06:25 Pulse Ox 97 06/19/25 06:25 O2 Del Method Room Air 06/19/25 06:25 BMI result Body Mass Index 23.4 Const: General: no acute distress and ill appearing chronically Nutritional Appearance: average body habitus Orientation/consciousness: patient oriented x3 Limitations: no limitations HEENT: Head: Yes normal to inspection Ears: hearing grossly normal bilaterally Eyes: Sclerae: sclerae normal Pupils: Equal, round and reactive pupils present Neck: Neck: Yes normal visual inspection Chest: Chest palpation & inspection: normal inspection of the chest Resp: Effort & Inspection: normal respiratory effort Auscultation: clear to auscultation bilaterally Cardio: Palpation: normal PMI Rate: regular rate Rhythm: regular rhythm Heart sounds: S1 normal heart sound present, S2 normal heart sound present and no murmurs GI: Inspection: Yes distended (Moderately distended due to ascites) P alpation (GI): Soft to palpation, nontender and No hepatosplenomegaly present Auscultation: normal bowel sounds Rectal Exam - Female: deferred Skin: General skin exam: no rashes or lesions noted Neuro: General: patient oriented x3, gait normal and moves all extremities Cranial nerves: Yes Equal, round and reactive pupils present Psych: Appearance: grossly normal Mental Status: mental status grossly normal Results Labs 06/25/25 06:13 06/29/25 12:23 Labs: Short CBC 06/18/25 06/19/25 Range/Units 17:01 03:47 WBC 4.6 L 3.4 L (4.8-10.8) X10*3/uL Hgb 10.2 L 9.2 L (12.0-16.0) g/dl Hct 28.8 L 26.2 L (37.0-47.0) % Plt Count 102 L 89 L (160-400) X10*3/uL BMP 06/18/25 06/19/25 17:00 03:47 Sodium 143 143 Potassium 3.2 L 3.6 Chloride 105 105 Carbon Dioxide 17 L 15 L BUN 4 L 4 L Creatinine 0.42 L 0.39 L Calcium 9.1 8.7 Liver Function 06/18/25 06/19/25 Range/Units 17:00 03:47 Total Bilirubin 10.7 H 10.3 H (0.0-1.0) mg/dL GGT 1410 H (7-33) U/L AST 243 H 212 H (5-31) U/L ALT 46 H 40 H (0-31) U/L Alkaline Phosphatase 168 H 147 H (39-117) U/L Albumin 3.7 3.3 L (3.5-5.0) g/dL Urine 06/18/25 Range/Units 19:52 Urine Color Dark Yellow Urine Appearance Clear Urine pH 6.0 (5.0-9.0) Ur Specific [place] >= 1.030 H (1.005-1.025) Urine Protein Trace (Neg-Trace) mg/dL Urine Glucose (UA) Negative (Negative) mg/dL Assessment and Plan (1) Cirrhosis of liver: Qualifiers: Ascites presence: with ascites Hepatic cirrhosis type: unspecified hepatic cirrhosis Qualified Code(s): K74.60 - Unspecified cirrhosis of liver; R18.8 - Other ascites Status: Acute (2) Ascites: Qualifiers: Ascites type: due to alcoholic cirrhosis Qualified Code(s): K70.31 - Alcoholic cirrhosis of liver with ascites Status: Acute Plan 64 YF with EtOH abuse with alcoholic hepatitis complicated by thrombocytopenia and ascites, GERD, essential hypertension, HFpEF and peripheral neuropathy [place] [facility] [place] complaining of multiple symptoms - dark urine, abdominal distention, on and off chest pain and shortness on breath with exertion. Pt has a past hx of NM and has a hx of chronic chest pain for the past year of unclear etiology. RECOMMENDATIONS: 1. Agree with IV PPI, antiemetics, antibiotics and CIWA protocol 2. Agree with Prednisone (Maddrey score is 48) 3. Paracentesis by IR and check ascitic fluid for cell count and diff to rule out SBP 4. ETOH rehab once pt is stable 5. Pt can be scheduled for a colonoscopy when she is stable or as outpatient to [facility] on Segmental mural thickening of the ascending colon noted on CT scan Procedures Date of Service Date of Service: 06/29/25
[2025-06-19 07:31] VITALS: BP 113/62; PULSE 87; RESP 18; TEMP 36.7; O2SAT 99
--- NOTE | 2025-06-19 07:37 | PC.NURSE ---
pt is alert and oriented, skin jaundice, respirations even and unlabored, ls clear, pt's abd distended and firm, bowel sounds in all 4 quadrants, pt is reporting abd pain 10/10 denies nausea at this time, vs stable
[2025-06-19 07:38] LABS: Ferritin 1832 ng/mL (10-250)
--- NOTE | 2025-06-19 07:42 | PC.NURSE ---
reached out to the hospitalist for additional pain medications besides Tylenol
--- NOTE | 2025-06-19 08:23 | PHA.MEDREC ---
Addendum entered by Petros Aguilera PharmD 06/19/25 08:33: reviewed Original Note: Pharmacy Consult ? Medication Reconciliation Pharmacy has completed the medication reconciliation. Patient states she stopped taking Carvedolol 3.125 mg, Folic acid 1 mg, Gabapentin 300 mg, Lansiprazole 30 mg, Naltrexone 50 mg, Sucralfate 1 G, and Vitamin B1 100 mg. Patient states her provider didn't tell her to stop taking her medication, she stopped on her Stephan. Patient confirmed she is only taking Omeprazole 20 mg and Gemtesa 75 mg . Patient last took them 2 days ago.
[2025-06-19 09:17] LABS: Hematocrit 26.4 % (37.0-47.0); Hemoglobin 9.1 g/dl (12.0-16.0); Mean Corpuscular HGB Conc 34.5 g/dl (31.0-35.0); Mean Corpuscular Hemoglobin 39.6 pg (27.0-33.0); NRBC Abs Auto 0.000 X10*3/uL (0.0-0.012); NRBC Pct Auto 0.0 /100WBC (0.0-0.2); Red Blood Count 2.30 X10*6/uL (4.20-5.50); Reticulocytes Absolute 0.067 X10*6/uL (0.026-0.095); White Blood Count 2.8 X10*3/uL (4.8-10.8)
[2025-06-19 09:18] LABS: Mean Corpuscular Volume 114.8 fL (80.0-98.0); Platelet Count 86 X10*3/uL (160-400)
[2025-06-19 09:40] LABS: Iron 108 mcg/dL (30-160); Percent Iron Saturation 81 % (15-50); Total Iron Binding Capacity 133 mcg/dL (228-428); Unsaturated Iron Binding < 25 ug/dL
[2025-06-19 09:59] LABS: Folate 3.6 ng/mL (> or = 4.0); Vitamin B12 1385 pg/mL (200-900)
--- NOTE | 2025-06-19 11:24 | MHC.CM.PN ---
Addendum entered by Kalie Ortega 06/19/25 11:35: Per chart review, pt. DC'd in March with services from [facility]. Original Note: IMM 06/19/25, Pt. lives with 3 roommates, she does not use home health aid services, she said she recently had [facility]NA services, did not know from which [facility]NA, ended about a month ago. She does not use DME. PCP confirmed, Le Haddad D.O., HCP on file names Avis and Nhi, pt. wants to change this, but not at this time, CM to follow up with her at a later time to complete new HCP. DCP: home, self care or with services. Pt. can arrange a ride home at [place]. CM to follow for DC needs.
[2025-06-19] MEDS: Thiamine HCL 100 MG in 0.9 % Sodium Chloride 100 ML 202 MG IV (11:53)
[2025-06-19 12:02] VITALS: BP 125/73; PULSE 78; RESP 18; TEMP 36.9; O2SAT 97
[2025-06-19] MEDS: metroNIDAZOLE/NS 500 MG/100 ML PIGGYBACK 100 MG IV ×2 (12:52→23:48)
[2025-06-19 13:55] VITALS: BP 126/63; PULSE 81; RESP 18; TEMP 36.2; O2SAT 98
[2025-06-19 14:09] VITALS: BMI 23.2
--- NOTE | 2025-06-19 14:34 | P.PNIM_ITS ---
Subjective Subjective Date of Service: 06/19/25 Interval History: Patient represents a challenging historian. She is alert and oriented to person place time and situation, however is ?wifty . She quickly loses track of the topic of conversation and becomes tangential, requiring reorientation. With the patient's by bedside endorses that there has been a bit more confusion/mental fogginess recently. Patient endorses multiple pain points in abdomen; all varied from each other. - epigastric pain burning sensation - cramping sensation in the suprapubic region - generalized left lower quadrant pain that comes and goes sharp stabbing - right upper quadrant pain described as an ache and fullness She also endorses persistent bilateral lower extremity pain and numbness attributed to her restless legs syndrome and neuropathy. She endorses change in skin color over the past few weeks. She also endorses a change in her dietary intake over the past 4 weeks, with reduction in p.o. intake of majority of foods. She has been drinking 1 bottle of wine daily Review of Systems Review of Systems: Yes all other systems are reviewed and are negative Physical Exam 2 Exam: Exam: General: A&O x3, oriented to time place person and situation, comfortable, no pain. Jaundiced with scleral icterus. Cardiac: S1, S2 auscultated with no S3/4, no MRG. Well perfused. Respiratory: Decreased breath sounds bilaterally at the bases, with some crepitations auscultated. Otherwise normal breath sounds auscultated throughout remaining lung zones, without wheezing, rales. Normal rate. Platypnoea noted. GI/ : Generalized abdominal distention noted. Generalized pain on light palpation of the abdomen. Hepatomegaly noted. Spider nevi noted. Jaundiced skin. Elevated JVP. MSK: Normal ambulation without pain at bony prominences or musculature Lower extremities: Bilateral lower extremity numbness and tingling to the knees. Neurological: Normal neurological examination on overview, without obvious CN II-XII abnormalities. Vital Signs: Vital Signs: Last Vital Signs Temp 98.5 F 06/19/25 12:02 Pulse 78 06/19/25 12:02 Resp 18 06/19/25 12:02 BP 125/73 06/19/25 12:02 Pulse Ox 97 06/19/25 12:02 O2 Del Method Room Air 06/19/25 12:02 BMI result Body Mass Index 23.2 Objective Data Active Medications Acetaminophen (Acetaminophen 325 Mg Tablet) 650 mg PO Q6H PRN PRN Reason: Pain, Mild 1-3,fever,headache Calcium Carbonate (Calcium Carbonate 750 Mg Tab.Chew) 750 mg PO Q4H PRN PRN Reason: Heartburn Ceftriaxone Sodium (Ceftriaxone Sodium 1 Gm Vial) 1 gm IVPUSH Q[facility]H [facility] Last Admin: 06/19/25 12:52 Dose: 1 gm Documented By: ANTWAN Folic Acid (Folic Acid 1 Mg Tablet) 1 mg PO DAILY [facility] Last Admin: 06/19/25 09:26 Dose: 1 mg Documented By: ANTWAN Metronidazole (Flagyl) 500 mg in 100 mls @ 100 mls/hr IV Q12H [facility] Last Infusion: 06/19/25 14:07 Dose: Infused Documented By: ONUR Dextrose/Sodium Chloride (D5ns) 1,000 mls @ 75 mls/hr IVCONT .[id number] [facility] Stop: 06/20/25 00:19 Last Admin: 06/19/25 11:53 Dose: 75 mls/hr Documented By: ANTWAN Thiamine HCl 100 mg/ Sodium (Chloride) 101 mls @ 202 mls/hr IV DAILY [facility] Last Infusion: 06/19/25 12:30 Dose: Infused Documented By: ANTWAN Magnesium Hydroxide (Milk Of Magnesia 30 Ml Oral.Susp) 30 ml PO DAILY PRN PRN Reason: Constipation Melatonin (Melatonin 3 Mg Tablet) 6 mg PO BEDTIME PRN PRN Reason: Insomnia Methylprednisolone Sodium Succinate (Methylprednisolone Sod Succ 40 Mg/Ml Vial) 40 mg IVPUSH Q24H [facility] Last Admin: 06/19/25 12:52 Dose: 40 mg Documented By: ANTWAN Multivitamins/Vitamin C (Multivitamin Tablet) 1 tab PO DAILY [facility] Last Admin: 06/19/25 09:26 Dose: 1 tab Documented By: ANTWAN Non-Formulary Medication (Vibegron [Gemtesa]) 75 mg PO DAILY [facility] Ondansetron HCl (Ondansetron Hcl 4 Mg/2 Ml Vial) 4 mg IVPUSH Q6H PRN PRN Reason: Nausea and Vomiting Last Admin: 06/19/25 00:24 Dose: 4 mg Documented By: LINDSEY Pantoprazole Sodium (Pantoprazole Sodium 40 Mg/10 Ml Vial) 40 mg IVPUSH BID@0630,1630 [facility] Sodium Chloride (0.9 % Sodium Chloride Flush 3 Ml Syringe) 3 ml IVFLUSH QSHIFT [facility] Last Admin: 06/19/25 14:08 Dose: Not Given Documented By: ONUR Non-Admin Reason: IV Running Labs 06/19/25 09:01 06/19/25 03:47 Labs: Laboratory Results - last 24 hr 06/18/25 06/18/25 06/18/25 17:00 17:01 17:47 MCV 110.8 H MCH 39.2 H MCHC 35.4 H RDW 19.9 H Plt Count 102 L MPV 10.3 Immature Gran % (Auto) 1.7 H Neut % (Auto) 66.1 Lymph % (Auto) 21.3 [place] % (Auto) 9.7 Eos % (Auto) 0.6 Baso % (Auto) 0.6 Lymph # (Auto) 1.0 L [place] # (Auto) 0.5 Eos # (Auto) 0.0 Baso # (Auto) 0.0 Abs Immat Gran (auto) 0.08 H Absolute Neuts (auto) 3.1 Absolute Nucleated RBC 0.020 H Nucleated RBC % (auto) 0.4 H Smear Tech's Comments VERIFIED Smear Path Review Absolute Retic Percent Retic Immature Retic Fraction Retic Hgb Equivalent PT 19.1 H D INR 1.7 H Anion Gap 24 H Estim Creat Clear Calc 115.3 Estimated GFR > 60 Random Glucose 81 Calcium 9.1 Magnesium 1.5 L Iron TIBC % Saturation Unsat Iron Binding Ferritin Total Bilirubin 10.7 H GGT 1410 H AST 243 H ALT 46 H Alkaline Phosphatase 168 H Ammonia Total Protein 7.1 Albumin 3.7 Lipase 38 Vitamin B12 25-OH Vitamin D Total Folate Beta-Hydroxybutyrate 8.65 H Urine Color Urine Appearance Urine pH Ur Specific [place] Urine Protein Urine Glucose (UA) Urine Ketones Urine Blood Urine Nitrite Ur Leukocyte Esterase Urine RBC Urine WBC Ur Squamous Epith Cells Urine Bacteria Hyaline Casts Ethyl Alcohol 85 Hepatitis A IgM Ab Nonreactive Hep Bs Antigen Negative Hep Bs Antibody NONREACTIVE Hep B Core Total Ab Nonreactive Hepatitis C Ab (EIA) Nonreactive 06/18/25 06/18/25 06/19/25 19:52 22:18 03:47 MCV 110.5 H MCH 38.8 H MCHC 35.1 H RDW 19.9 H Plt Count 89 L MPV 9.6 Immature Gran % (Auto) 3.0 H Neut % (Auto) 76.0 H Lymph % (Auto) 13.3 L [place] % (Auto) 6.5 Eos % (Auto) 0.3 Baso % (Auto) 0.9 Lymph # (Auto) 0.5 L [place] # (Auto) 0.2 Eos # (Auto) 0.0 Baso # (Auto) 0.0 Abs Immat Gran (auto) 0.10 H Absolute Neuts (auto) 2.6 Absolute Nucleated RBC 0.000 Nucleated RBC % (auto) 0.0 Smear Tech's Comments Smear Path Review SEE NOTE Absolute Retic Percent Retic Immature Retic Fraction Retic Hgb Equivalent PT INR Anion Gap 27 H Estim Creat Clear Calc 124.2 Estimated GFR > 60 Random Glucose 99 Calcium 8.7 Magnesium 1.9 Iron TIBC % Saturation Unsat Iron Binding Ferritin 1832 H Total Bilirubin 10.3 H GGT AST 212 H ALT 40 H Alkaline Phosphatase 147 H Ammonia 50 Total Protein 6.5 Albumin 3.3 L Lipase Vitamin B12 25-OH Vitamin D Total Folate Beta-Hydroxybutyrate Urine Color Dark Yellow Urine Appearance Clear Urine pH 6.0 Ur Specific [place] >= 1.030 H Urine Protein Trace Urine Glucose (UA) Negative Urine Ketones >=160 Urine Blood Negative Urine Nitrite Negative Ur Leukocyte Esterase Trace H Urine RBC 0-2 Urine WBC 0-5 Ur Squamous Epith Cells 0-2 Urine Bacteria None Seen Hyaline Casts 0-2 Ethyl Alcohol Hepatitis A IgM Ab Hep Bs Antigen Hep Bs Antibody Hep B Core Total Ab Hepatitis C Ab (EIA) 06/19/25 06/19/25 09:01 09:02 MCV 114.8 H MCH 39.6 H MCHC 34.5 RDW 20.2 H Plt Count 86 L MPV 10.1 Immature Gran % (Auto) Neut % (Auto) Lymph % (Auto) [place] % (Auto) Eos % (Auto) Baso % (Auto) Lymph # (Auto) [place] # (Auto) Eos # (Auto) Baso # (Auto) Abs Immat Gran (auto) Absolute Neuts (auto) Absolute Nucleated RBC 0.000 Nucleated RBC % (auto) 0.0 Smear Tech's Comments Smear Path Review Absolute Retic 0.067 Percent Retic 2.9 H Immature Retic Fraction 27.3 H Retic Hgb Equivalent 38.6 H PT INR Anion Gap Estim Creat Clear Calc Estimated GFR Random Glucose Calcium Magnesium Iron 108 TIBC 133 L % Saturation 81 H Unsat Iron Binding < 25 Ferritin Total Bilirubin GGT AST ALT Alkaline Phosphatase Ammonia Total Protein Albumin Lipase Vitamin B12 1385 H 25-OH Vitamin D Total 11.4 L Folate 3.6 L Beta-Hydroxybutyrate Urine Color Urine Appearance Urine pH Ur Specific [place] Urine Protein Urine Glucose (UA) Urine Ketones Urine Blood Urine Nitrite Ur Leukocyte Esterase Urine RBC Urine WBC Ur Squamous Epith Cells Urine Bacteria Hyaline Casts Ethyl Alcohol Hepatitis A IgM Ab Hep Bs Antigen Hep Bs Antibody Hep B Core Total Ab Hepatitis C Ab (EIA) Assessment and Plan (1) Alcohol use disorder: Status: Acute (2) History of cardiomyopathy: Status: Acute (3) Multinodular thyroid: Status: Acute (4) Esophagitis: Status: Acute (5) Elevated bilirubin: Status: Acute (6) Jaundice: Status: Acute (7) Cirrhosis of liver: Status: Acute (8) Alcoholic liver failure: Status: Acute (9) Abdominal distension: Status: Acute (10) Ascites: Status: Acute (11) UTI (urinary tract infection): Status: Acute (12) Stercoral colitis: Status: Acute (13) Constipation: Status: Inactive (14) Painless jaundice: Status: Acute (15) Malnutrition: Status: Resolved Plan 64-year-old female, with complicated background medical history of alcohol abuse, history of cardiomyopathy, multinodular thyroid, prior esophagitis with hematemesis, alcoholic liver failure, bilateral lower extremity polyneuropathy (likely 2/2 EtOH and nutrition) presenting to hospital with complaints of abdominal pain, admitted for alcohol detox, alcoholic hepatitis, alcoholic gastritis, jaundice, and nutritional deficiency. Alcohol abuse Alcohol withdrawal PLAN -CIWA - thiamine - folic acid - monitor for signs and symptoms of withdrawal - addiction medicine consultation Jaundice Suspecting possible painless jaundice, despite multiple discussions of abdominal pain. Portal vein thrombosis has been ruled out with right upper quadrant ultrasonography Abdominal CT revealing hepatomegaly. Etiology of jaundice could be 2/2 acute alcoholic hepatitis. Other etiologies that are being evaluated are obstructive Causes of jaundice. PLAN - MRCP ordered - GI consultation - monitor bilirubin - monitor LFTs Alcoholic hepatitis Alcoholic cirrhosis Portal HTN Ascites Elevated MELD and child Hernandez score. Qualifies for prednisone initiation. Patient unable to tolerate p.o. PLAN - methylprednisolone 40 mg OD IV - transitioned to prednisone 40 mg OD p.o. when able to tolerate orally - monitor LFTs - GI consultation placed - may require furosemide after nutritionally stabilized - consider spironolactone Constipation Stercoral colitis Possible colonic malignancy Bowel hygiene ordered Empirically initiated metronidazole and ceftriaxone for possibility of stercoral colitis With relief of abdominal ascites, constipation should be relieved. Malnourishment Electrolyte abnormalities Dietary consultation placed Monitor and correct electrolyte abnormalities Thiamine, folic acid, multivitamin started QUALITY METRICS - VTE: Enoxaparin - CODE STATUS: Full code - DIET: Low-sodium Total time managing care of this patient today: 60 minutes. Quality Stroke Does the patient have a stroke diagnosis?: No VTE Prior VTE?: No VTE Risk Level:: Medical - moderate - high VTE Device Contraindication: N/A - Device Ordered VTE Drug Contraindication: Treatment Not Indicated
[2025-06-19 15:28] VITALS: BP 121/59; PULSE 82; RESP 18; TEMP 36; O2SAT 97
--- NOTE | 2025-06-19 18:02 | MHC.RECOVRN ---
Patient had a positive screen for unhealthy alcohol use on admission, subsequently, met with this adjusto writer operator to discuss alcohol use, recovery supports and concerns related to increased risk of alcohol related problems.? Patient reports consuming 1 bottle of wine daily ?because I?m bed bound and I?m bored?. Pt spoke at length about neuropathy keeping her secluded at home and unable to socialize. Pt states she has tried KRUPA and feels it was not helpful ?AA makes me want to drink, listening to them all whine, its ridiculous?. Pt was educated on the potential to utilize [employer] F[employer] to which she states, ?We don?t have any of that new age electronic stuff? Pt reports her goal is to no longer drink alcohol. Her reported plan is to discharge home and tell her boyfriend stephane longer purchase alcohol for her.. Pt feels this is sufficient to stop her consumption and does not wish to start KRUPA. She states she already has a softball coach through [facility].? Discussed how alcohol use has impacted health, including negative impact on mental health and overall physical well being. Discussed risk and reduction strategies including drinking below the recommended limit and?the effects alcohol has contributed to her current health conditions.? Provided pt with written resources including information on inpatient and outpatient treatment, KRUPA, and harm reduction.?? Pt declines intervention, KRUPA, or outpatient appt for treatment related to AUD at this time Pt was provided with TW?s contact information if questions or concerns arise. Pt denies further questions or concerns at this time.?
[2025-06-19 19:32] VITALS: BP 119/59; PULSE 83; RESP 18; TEMP 36.7; O2SAT 95
[2025-06-20 03:31] VITALS: BP 116/58; PULSE 88; RESP 16; TEMP 36.4; O2SAT 97
[2025-06-20 08:00] VITALS: BP 106/56; PULSE 78; RESP 14; TEMP 36.6; O2SAT 96
[2025-06-20] MEDS: Thiamine HCL 100 MG in 0.9 % Sodium Chloride 100 ML 202 MG IV (09:07)
[2025-06-20 11:10] VITALS: BP 108/58; PULSE 78; RESP 18
[2025-06-20] MEDS: metroNIDAZOLE/NS 500 MG/100 ML PIGGYBACK 100 MG IV ×2 (11:13→23:50)
[2025-06-20 11:52] VITALS: BP 108/59; PULSE 80
--- NOTE | 2025-06-20 13:01 | MHC.CLN ---
CONSULT REPORTED DECREASE IN PO WITH DAILY ETOH INTAKE. CURRENTLY NPO. BMI=23.2 WITHIN NORMAL LIMITS. FOLLOW UP FOR DIET ADVANCEMENT AND PO INTAKE.
--- NOTE | 2025-06-20 13:47 | MHC.CM.PN ---
Per MD rounds discharge is anticipated Monday/Monday. A PT eval is pending. DP STR via BLS vs Home with [facility]. The referrals have been sent. Patient will arrange for a ride home.
--- NOTE | 2025-06-20 14:26 | P.PNIM_ITS ---
Subjective Subjective Date of Service: 06/20/25 Interval History: Patient feels similar as compared to yesterday. Reports her mental fogginess has improved overall. Unable to go for MRI yesterday due to anxiety - attempted again today, received lorazepam. Diarrhea, no fevers no chills. Review of Systems Review of Systems: Yes all other systems are reviewed and are negative Physical Exam 2 Exam: Exam: General: A&O x3, oriented to time place person and situation, comfortable, no pain. Jaundiced with scleral icterus. Cardiac: S1, S2 auscultated with no S3/4, no MRG. Well perfused. Respiratory: Decreased breath sounds bilaterally at the bases, with some crepitations auscultated. Otherwise normal breath sounds auscultated throughout remaining lung zones, without wheezing, rales. Normal rate. Platypnoea noted. GI/ : Generalized abdominal distention noted. Generalized pain on light palpation of the abdomen. Hepatomegaly noted. Spider nevi noted. Jaundiced skin. Elevated JVP. MSK: Normal ambulation without pain at bony prominences or musculature Lower extremities: Bilateral lower extremity numbness and tingling to the knees. Neurological: Normal neurological examination on overview, without obvious CN II-XII abnormalities. Vital Signs: Vital Signs: Last Vital Signs Temp 97.8 F 06/20/25 08:00 Pulse 80 06/20/25 11:52 Resp 18 06/20/25 11:10 BP 108/59 L 06/20/25 11:52 Pulse Ox 96 06/20/25 08:00 O2 Del Method Room Air 06/20/25 08:00 BMI result Body Mass Index 23.2 Objective Data Active Medications Acetaminophen (Acetaminophen 325 Mg Tablet) 650 mg PO Q6H PRN PRN Reason: Pain, Mild 1-3,fever,headache Calcium Carbonate (Calcium Carbonate 750 Mg Tab.Chew) 750 mg PO Q4H PRN PRN Reason: Heartburn Ceftriaxone Sodium (Ceftriaxone Sodium 1 Gm Vial) 1 gm IVPUSH Q24H [facility] Last Admin: 06/20/25 11:12 Dose: 1 gm Documented By: KARISHMA Folic Acid (Folic Acid 1 Mg Tablet) 1 mg PO DAILY [facility] Last Admin: 06/19/25 09:26 Dose: 1 mg Documented By: ANTWAN Metronidazole (Flagyl) 500 mg in 100 mls @ 100 mls/hr IV Q12H [facility] Last Infusion: 06/20/25 13:51 Dose: Infused Documented By: KARISHMA Thiamine HCl 100 mg/ Sodium (Chloride) 101 mls @ 202 mls/hr IV DAILY [facility] Last Infusion: 06/20/25 10:13 Dose: Infused Documented By: KARISHMA Magnesium Hydroxide (Milk Of Magnesia 30 Ml Oral.Susp) 30 ml PO DAILY PRN PRN Reason: Constipation Melatonin (Melatonin 3 Mg Tablet) 6 mg PO BEDTIME PRN PRN Reason: Insomnia Last Admin: 06/19/25 23:47 Dose: 6 mg Documented By: EDMAR Methylprednisolone Sodium Succinate (Methylprednisolone Sod Succ 40 Mg/Ml Vial) 40 mg IVPUSH Q24H [facility] Last Admin: 06/20/25 11:12 Dose: 40 mg Documented By: KARISHMA Multivitamins/Vitamin C (Multivitamin Tablet) 1 tab PO DAILY [facility] Last Admin: 06/19/25 09:26 Dose: 1 tab Documented By: ANTWAN Non-Formulary Medication (Vibegron [Gemtesa]) 75 mg PO DAILY [facility] Ondansetron HCl (Ondansetron Hcl 4 Mg/2 Ml Vial) 4 mg IVPUSH Q6H PRN PRN Reason: Nausea and Vomiting Last Admin: 06/19/25 00:24 Dose: 4 mg Documented By: LINDSEY Pantoprazole Sodium (Pantoprazole Sodium 40 Mg/10 Ml Vial) 40 mg IVPUSH BID@0630,1630 [facility] Last Admin: 06/20/25 06:05 Dose: 40 mg Documented By: EDMAR Sodium Chloride (0.9 % Sodium Chloride Flush 3 Ml Syringe) 3 ml IVFLUSH QSHIFT [facility] Last Admin: 06/20/25 09:12 Dose: Not Given Documented By: KARISHMA Non-Admin Reason: Previously Administered Labs 06/19/25 09:01 06/19/25 03:47 Assessment and Plan (1) Alcohol use disorder: Status: Acute (2) History of cardiomyopathy: Status: Acute (3) Multinodular thyroid: Status: Acute (4) Alcoholic liver failure: Status: Acute (5) Jaundice: Status: Acute (6) Cirrhosis of liver: Status: Acute (7) Painless jaundice: Status: Acute (8) Stercoral colitis: Status: Acute (9) Ascites: Status: Acute (10) Abdominal distension: Status: Acute (11) UTI (urinary tract infection): Status: Acute (12) Fall: Status: Acute (13) Physical deconditioning: Status: Acute Plan 64-year-old female, with complicated background medical history of alcohol abuse, history of cardiomyopathy, multinodular thyroid, prior esophagitis with hematemesis, alcoholic liver failure, bilateral lower extremity polyneuropathy (likely 2/2 EtOH and nutrition) presenting to hospital with complaints of abdominal pain, admitted for alcohol detox, alcoholic hepatitis, alcoholic gastritis, jaundice, and nutritional deficiency. Alcohol abuse Alcohol withdrawal PLAN -CIWA - thiamine - folic acid - monitor for signs and symptoms of withdrawal - addiction medicine consultation Jaundice Suspecting possible painless jaundice, despite multiple discussions of abdominal pain. Portal vein thrombosis has been ruled out with right upper quadrant ultrasonography Abdominal CT revealing hepatomegaly. Etiology of jaundice could be 2/2 acute alcoholic hepatitis. Other etiologies that are being evaluated are obstructive Causes of jaundice. PLAN - MRCP results pending - GI consultation - monitor bilirubin - monitor LFTs Alcoholic hepatitis Alcoholic cirrhosis Portal HTN Ascites Elevated MELD and child Hernandez score. Qualifies for prednisone initiation. Patient unable to tolerate p.o. PLAN - methylprednisolone 40 mg OD IV - transition to prednisone 40 mg OD p.o. when able to tolerate orally - monitor LFTs - GI consultation placed - may require furosemide after nutritionally stabilized - consider spironolactone Constipation Stercoral colitis Possible colonic malignancy Bowel hygiene ordered Empirically initiated metronidazole and ceftriaxone for possibility of stercoral colitis With relief of abdominal ascites, constipation should be relieved. Malnourishment Electrolyte abnormalities Dietary consultation placed Monitor and correct electrolyte abnormalities Thiamine, folic acid, multivitamin started QUALITY [facility]RICS - VTE: Enoxaparin - CODE STATUS: Full code - DIET: Low-sodium Total time managing care of this patient today: 45 minutes. Quality Stroke Does the patient have a stroke diagnosis?: No VTE Prior VTE?: No VTE Risk Level:: Medical - moderate - high VTE Device Contraindication: N/A - Device Ordered VTE Drug Contraindication: Treatment Not Indicated
[2025-06-20 15:08] VITALS: BP 110/61; PULSE 73; RESP 20; TEMP 36.9; O2SAT 95
[2025-06-20] MEDS: 0.9 % Sodium Chloride Flush 3 ML SYRINGE IVFLUSH ×2 (16:25→23:49)
--- NOTE | 2025-06-20 16:54 | P.CDIM_ITS ---
PROVIDER RESPONSE TEXT: To clarify, the appropriate diagnosis supported by the clinical indicators: Pancytopenia: definite QUERY TEXT: PHYSICIAN'S DOCUMENTATION REQUEST Date of Query: 06/20/2025 07:32 AM EDT Patient Name: Nubia Bell Admit Date: 06/19/2025 Dear Haydee Edmondson MD, A review of the medical record indicates additional documentation may be needed. Please review below and update the documentation accordingly. Clinical Indicators: LABS: WBC 2.8 RBC 2.30 PLT 86 L Alcoholic cirrhosis, possible colonic malignancy. Based on the above, is there a diagnosis that correlates with these findings? Pancytopenia possible, suspected, cannot rule out etc. Other etiology (specify type) Other (explain) Clinically unable to determine (explain) Thank you, Erika Ortiz, CCS, CDIS Use of terms such as suspected, likely, concern for, or probable (associated with a specific diagnosis that is being evaluated, monitored, or treated as if it exists) are acceptable and can be coded in the inpatient setting, when documented at the time of discharge. Please use your independent medical judgment in providing your response. THIS QUERY IS PART OF THE PERMANENT MEDICAL RECORD
--- NOTE | 2025-06-20 17:20 | P.EN_ITS ---
Event Note Date of Service: 06/20/25 Event Note: Addiction consult placed for patient withn AUD Chart reviewed--no withdrawal sx to date Patient seen by squirrel worker -declined intervention, including restarting KRUPA Please reconsult if necessary-continue thiamine and folic acid at home Time Spent With Patient Time: Total time managing care of this patient today ____ minutes.
--- NOTE | 2025-06-20 18:49 | PC.NURSE ---
Patient had someone bring in medication from home per inpatient pharmacy's request. Prescription bottle for Gemtesa found at beside. This RN informed patient of protocol for home medication administration, patient verbalized understanding. Patient reported having taken one pill already. packing room worker Renetta Martinez and oncoming RN Lacy Pierson notified.
[2025-06-20 20:00] VITALS: BP 110/58; PULSE 89; RESP 16; TEMP 36; O2SAT 96
[2025-06-21 03:01] VITALS: BP 110/57; PULSE 83; RESP 18; TEMP 36.8; O2SAT 96
[2025-06-21 07:53] VITALS: BP 104/58; PULSE 69; RESP 18; TEMP 36.3; O2SAT 94
[2025-06-21 08:50] LABS: MANUAL DIFF FLAG NO
[2025-06-21 08:51] LABS: Hematocrit 25.0 % (37.0-47.0); Hemoglobin 8.6 g/dl (12.0-16.0); Imm Gran Abs Auto 0.07 X10*3/uL (0.00-0.03); Imm Gran Pct Auto 1.9 % (0.0-0.4); Lymphocytes Absolute Auto 1.0 X10*3/uL (1.2-4.9); Mean Corpuscular HGB Conc 34.4 g/dl (31.0-35.0); Mean Corpuscular Hemoglobin 38.7 pg (27.0-33.0); NRBC Abs Auto 0.000 X10*3/uL (0.0-0.012); NRBC Pct Auto 0.0 /100WBC (0.0-0.2); Red Blood Count 2.22 X10*6/uL (4.20-5.50); White Blood Count 3.7 X10*3/uL (4.8-10.8)
[2025-06-21 08:52] LABS: Mean Corpuscular Volume 112.6 fL (80.0-98.0); Platelet Count 84 X10*3/uL (160-400)
[2025-06-21] MEDS: PT OWN (Vibegron [Gemtesa] 75 mg tablet) 75 EACH PO (09:07)
[2025-06-21] MEDS: Thiamine HCL 100 MG in 0.9 % Sodium Chloride 100 ML 202 MG IV (09:08)
[2025-06-21] MEDS: 0.9 % Sodium Chloride Flush 3 ML SYRINGE IVFLUSH ×3 (09:12→21:28)
[2025-06-21 09:26] LABS: Alanine Aminotransferase 37 U/L (0-31); Albumin Level 2.9 g/dL (3.5-5.0); Alkaline Phosphatase 123 U/L (39-117); Anion Gap 13 (12-20); Aspartate Amino Transferase 135 U/L (5-31); Blood Urea Nitrogen 6 mg/dL (9-16); Calcium 8.2 mg/dL (8.4-10.2); Carbon Dioxide 25 mmol/L (22-29); Chloride 109 mmol/L (96-108); Creatinine Clr Calc Pharmacy 107.6; Estimated Glomerular Filt Rate > 60; Potassium 2.6 mmol/L (3.3-5.1); Sodium 144 mmol/L (135-145); Total Protein 5.7 g/dL (6.5-8.0)
[2025-06-21] MEDS: metroNIDAZOLE/NS 500 MG/100 ML PIGGYBACK 100 MG IV (11:00)
[2025-06-21] MEDS: PHENobarbitaL sodium 130 MG/ML IM ONCE 175 MG IM (11:00)
[2025-06-21] MEDS: Potassium Chloride ER 20 MEQ TAB.ER.PRT PO (11:01)
[2025-06-21] MEDS: Potassium Chloride/H20 10 MEQ/100 ML PIGGYBACK 100 MEQ IV ×4 (11:24→16:59)
--- NOTE | 2025-06-21 11:50 | P.CONGS_ITS ---
History of Present Illness Consult details Consult date: 06/21/25 Requesting physician: Haydee Edmondson Narrative: 64-year-old female patient presenting to the emergency department on 06/18/2025 with complaints of dark urine, abdominal distention and lower abdominal pain. She has a past medical history significant for EtOH abuse, GERD, hypertension, HFpEF, and peripheral neuropathy. She denied significant upper abdominal pain, nausea, vomiting, diarrhea, or bloody vomiting. She continues with active drinking including 1 bottle of wine daily. Laboratories revealed a normal WBC, elevated MCV. Current bilirubin total is 7.8 down from 10.3. There is mild elevation of the LFTs and alkaline phosphatase. CT abdomen and pelvis on 06/18 revealed evidence of cirrhosis and ascites. There was gallstones in the gallbladder and wall thickening of the colon. Ultrasound also confirmed gallstones within the gallbladder, cirrhotic changes in the liver with a ascites, and a negative sonographic Darden sign. MRCP on 06/20/2025 again revealed cirrhotic liver with ascites, multiple tiny gallstones within the gallbladder with normal common bile duct and no evidence of common bile duct stone. Surgical consultation was requested for possible acute cholecystitis. Review of Systems 2 Review of Systems: Yes all other systems are reviewed and are negative PMFSH Past Medical History Medical History Alcohol use disorder, severe, dependence Alcohol use disorder Alcoholic steatohepatitis Myocardial infarct Alcohol use disorder Multinodular thyroid Anxiety CHF (congestive heart failure) ETOH abuse Family History Family History Mother Cancer Father No problems noted. Surgical History Surgical History History of esophagogastroduodenoscopy (EGD) Hx of colonoscopy Hx of hysterectomy Social History Social History Household Members: Significant Other Household Members Other:: roommate Housing: Apartment Do you presently have visiting nurse or other home services: No Alcohol intake: current Alcohol intake frequency: 3 or more drinks per day Alcohol type: wine Patient Tobacco Use Status: Never used Tobacco Second Hand Smoke Exposure: Yes Substance Use Type: Crack/Cocaine Advance Directives Date on File: 07/22/23 service: No Current occupational status: disabled Meds Allergies Allergy/AdvReac Type Severity Reaction Status Date / Time No Known Allergies (No Known Allergy Verified 06/18/25 16:22 Allergies*) Active Medications: Current Medications Acetaminophen (Acetaminophen 325 Mg Tablet) 650 mg PO Q6H PRN PRN Reason: Pain, Mild 1-3,fever,headache Calcium Carbonate (Calcium Carbonate 750 Mg Tab.Chew) 750 mg PO Q4H PRN PRN Reason: Heartburn Ceftriaxone Sodium (Ceftriaxone Sodium 1 Gm Vial) 1 gm IVPUSH Q24H [facility] [place] Last Admin: 06/21/25 11:00 Dose: 1 gm Folic Acid (Folic Acid 1 Mg Tablet) 1 mg PO DAILY [facility] [place] Last Admin: 06/21/25 09:07 Dose: 1 mg Metronidazole (Flagyl) 500 mg in 100 mls @ 100 mls/hr IV Q12H [facility] [place] Last Admin: 06/21/25 11:00 Dose: 100 mls/hr Thiamine HCl 100 mg/ Sodium (Chloride) 101 mls @ 202 mls/hr IV DAILY [facility] [place] Last Infusion: 06/21/25 09:58 Dose: Infused Potassium Chloride (Potassium Chloride/H20) 10 meq in 100 mls @ 100 mls/hr IV Q1H [facility] [place] Stop: 06/21/25 14:14 Last Admin: 06/21/25 11:24 Dose: 100 mls/hr Magnesium Hydroxide (Milk Of Magnesia 30 Ml Oral.Susp) 30 ml PO DAILY PRN PRN Reason: Constipation Melatonin (Melatonin 3 Mg Tablet) 6 mg PO BEDTIME PRN PRN Reason: Insomnia Last Admin: 06/19/25 23:47 Dose: 6 mg Methylprednisolone Sodium Succinate (Methylprednisolone Sod Succ 40 Mg/Ml Vial) 40 mg IVPUSH Q24H [facility] [place] Last Admin: 06/21/25 11:00 Dose: 40 mg Multivitamins/Vitamin C (Multivitamin Tablet) 1 tab PO DAILY [facility] [place] Last Admin: 06/21/25 09:07 Dose: 1 tab Pt Own (Vibegron [ Gemtesa] 75 Mg Tablet) 75 mg PO DAILY [facility] [place] Last Admin: 06/21/25 09:07 Dose: 75 mg Ondansetron HCl (Ondansetron Hcl 4 Mg/2 Ml Vial) 4 mg IVPUSH Q6H PRN PRN Reason: Nausea and Vomiting Last Admin: 06/19/25 00:24 Dose: 4 mg Pantoprazole Sodium (Pantoprazole Sodium 40 Mg/10 Ml Vial) 40 mg IVPUSH BID@0630,1630 [facility] [place] Last Admin: 06/21/25 06:09 Dose: 40 mg Pharmacy Consult (Consult Rx Etoh Phenob Po Only) 1 each MISCELLANE ONCE PRN; Protocol PRN Reason: Consult order Phenobarbital (Phenobarbital 15 Mg Tablet) 15 mg PO Q4H PRN PRN Reason: Breakthrough alcohol withdrawa Phenobarbital (Phenobarbital 15 Mg Tablet) 45 mg PO BID [facility] [place]; Protocol Stop: 06/23/25 21:01 Phenobarbital (Phenobarbital 15 Mg Tablet) 15 mg PO BID [facility] [place]; Protocol Stop: 06/25/25 21:01 Phenobarbital (Phenobarbital 15 Mg Tablet) 15 mg PO DAILY [facility] [place]; Protocol Stop: 06/27/25 09:01 Phenobarbital Sodium (Phenobarbital Sodium 130 Mg/Ml Vial Im Q3hx2) 130 mg IM Q3H [facility] [place]; Protocol Stop: 06/21/25 17:01 Potassium Chloride (Potassium Chloride Er 20 Meq Tab.Er.Prt) 20 meq PO BID [facility] [place] Last Admin: 06/21/25 11:01 Dose: 20 meq Sodium Chloride (0.9 % Sodium Chloride Flush 3 Ml Syringe) 3 ml IVFLUSH QSHIFT [facility] [place] Last Admin: 06/21/25 09:12 Dose: 3 ml Home Medications ?Medication ?Instructions ?Recorded ?Confirmed ?Last Taken ?Type omeprazole 20 mg tablet,delayed 20 mg PO DAILY@0630 06/19/25 06/17/25 History release vibegron 75 mg tablet (Gemtesa) 75 mg PO DAILY 5 06/19/25 Unknown History Physical Exam 2 Vital Signs: Vital Signs: Last Vital Signs Temp 97.3 F 06/21/25 07:53 Pulse 69 06/21/25 07:53 Resp 18 06/21/25 07:53 BP 104/58 L 06/21/25 07:53 Pulse Ox 94 06/21/25 07:53 O2 Del Method Room Air 06/21/25 07:53 BMI result Body Mass Index 23.2 Const: General: cooperative and no acute distress Nutritional Appearance: w ell nourished Orientation/consciousness: patient oriented x3 HEENT: Head: Yes normocephalic and Yes atraumatic Ears: hearing grossly normal bilaterally Eyes: Other: Scleral icterus Resp: Effort & Inspection: normal respiratory effort, no audible wheezes, no cough and no respiratory distress Cardio: Jugular venous distension: no JVD GI: Other: Soft, moderately distended, normal to percussion, no tenderness to deep palpation, negative Darden sign, no rebound, guarding or rigidity. Lower abdominal scar from prior hysterectomy, no hernias identified. Inspection: Yes normal to inspection Skin: Other: Warm, dry, no rash, jaundice appearance Neuro: General: patient oriented x3 Extrem: General: Yes no clubbing, cyanosis or edema Results Labs 06/21/25 08:30 06/21/25 08:30 Labs: Abnormal lab results 06/21/25 Range/Units 08:30 WBC 3.7 L (4.8-10.8) X10*3/uL RBC 2.22 L (4.20-5.50) X10*6/uL Hgb 8.6 L (12.0-16.0) g/dl Hct 25.0 L (37.0-47.0) % MCV 112.6 H (80.0-98.0) fL MCH 38.7 H (27.0-33.0) pg RDW 19.0 H (11.0-16.0) % Plt Count 84 L (160-400) X10*3/uL Immature Gran % (Auto) 1.9 H (0.0-0.4) % Lymph # (Auto) 1.0 L (1.2-4.9) X10*3/uL Abs Immat Gran (auto) 0.07 H (0.00-0.03) X10*3/uL Potassium 2.6 L* D (3.3-5.1) mmol/L Chloride 109 H (96-108) mmol/L BUN 6 L (9-16) mg/dL Creatinine 0.45 L (0.5-1.4) mg/dL Random Glucose 117 H (60-115) mg/dL Calcium 8.2 L (8.4-10.2) mg/dL Total Bilirubin 7.8 H (0.0-1.0) mg/dL AST 135 H (5-31) U/L ALT 37 H (0-31) U/L Alkaline Phosphatase 123 H (39-117) U/L Total Protein 5.7 L (6.5-8.0) g/dL Albumin 2.9 L (3.5-5.0) g/dL Short CBC 06/21/25 Range/Units 08:30 WBC 3.7 L (4.8-10.8) X10*3/uL Hgb 8.6 L (12.0-16.0) g/dl Hct 25.0 L (37.0-47.0) % Plt Count 84 L (160-400) X10*3/uL BMP 06/21/25 08:30 Sodium 144 Potassium 2.6 L* D Chloride 109 H Carbon Dioxide 25 BUN 6 L Creatinine 0.45 L Calcium 8.2 L Liver Function 06/21/25 Range/Units 08:30 Total Bilirubin 7.8 H (0.0-1.0) mg/dL AST 135 H (5-31) U/L ALT 37 H (0-31) U/L Alkaline Phosphatase 123 H (39-117) U/L Albumin 2.9 L (3.5-5.0) g/dL Urine 06/18/25 Range/Units 19:52 Urine Color Dark Yellow Urine Appearance Clear Urine pH 6.0 (5.0-9.0) Ur Specific Veyo >= 1.030 H (1.005-1.025) Urine Protein Trace (Neg-Trace) mg/dL Urine Glucose (UA) Negative (Negative) mg/dL All other labs normal. Assessment and Plan (1) Alcohol use disorder: Status: Acute (2) Cirrhosis of liver: Qualifiers: Ascites presence: with ascites Hepatic cirrhosis type: unspecified hepatic cirrhosis Qualified Code(s): K74.60 - Unspecified cirrhosis of liver; R18.8 - Other ascites Status: Acute Plan 64-year-old female patient, active alcohol user, with evidence of cirrhosis and ascites presenting with jaundice. She was found to have gallstones within the gallbladder but no evidence of acute cholecystitis (normal WBC, nontender right upper quadrant with negative Darden sign and negative sonographic Darden sign). Pericholecystic fluid more associated with the surrounding ascites. Would not recommend any surgical intervention at this time. Procedures Date of Service Date of Service: 06/21/25
--- NOTE | 2025-06-21 12:56 | HO.PM.IMPN ---
Subjective Subjective Date of Service: 06/21/25 Interval History: Feels hungry today. Expressing desire to intake p.o.. MRCP reviewed, revealing evidence of acute cholecystitis, with cholelithiasis and choledocholithiasis. No evidence of obstructing mass. The patient reports her abdominal fullness feels better as compared to before. Given findings on MRCP, surgery was consulted. Nurse communication reporting the patient is now experiencing visual hallucinations. CIWA score elevated Starting phenobarbital protocol for ETOH withdrawal. Review of Systems Review of Systems: Yes all other systems are reviewed and are negative Physical Exam Exam: Exam: General: A&O x3, oriented to time place person and situation, comfortable, no pain. Jaundiced with scleral icterus. Cardiac: S1, S2 auscultated with no S3/4, no MRG. Well perfused. Respiratory: Decreased breath sounds bilaterally at the bases, with some crepitations auscultated. Otherwise normal breath sounds auscultated throughout remaining lung zones, without wheezing, rales. Normal rate. Platypnoea noted. GI/ : Generalized abdominal distention noted. Generalized pain on light palpation of the abdomen. Hepatomegaly noted. Spider nevi noted. Jaundiced skin. Elevated JVP. MSK: Normal ambulation without pain at bony prominences or musculature Lower extremities: Bilateral lower extremity numbness and tingling to the knees. Neurological: Normal neurological examination on overview, without obvious CN II-XII abnormalities. Psych: Visual hallucinations, anxious Vital Signs: Vital Signs: Last Vital Signs Temp 97.3 F 06/21/25 07:53 Pulse 69 06/21/25 07:53 Resp 18 06/21/25 07:53 BP 104/58 L 06/21/25 07:53 Pulse Ox 94 06/21/25 07:53 O2 Del Method Room Air 06/21/25 07:53 BMI result Body Mass Index 23.2 Objective Data Active Medications Acetaminophen (Acetaminophen 325 Mg Tablet) 650 mg PO Q6H PRN PRN Reason: Pain, Mild 1-3,fever,headache Calcium Carbonate (Calcium Carbonate 750 Mg Tab.Chew) 750 mg PO Q4H PRN PRN Reason: Heartburn Ceftriaxone Sodium (Ceftriaxone Sodium 1 Gm Vial) 1 gm IVPUSH Q24H [facility] Last Admin: 06/21/25 11:00 Dose: 1 gm Documented By: BEBO Folic Acid (Folic Acid 1 Mg Tablet) 1 mg PO DAILY [facility] Last Admin: 06/21/25 09:07 Dose: 1 mg Documented By: BEBO Metronidazole (Flagyl) 500 mg in 100 mls @ 100 mls/hr IV Q12H [facility] Last Infusion: 06/21/25 12:44 Dose: Infused Documented By: BEBO Thiamine HCl 100 mg/ Sodium (Chloride) 101 mls @ 202 mls/hr IV DAILY [facility] Last Infusion: 06/21/25 09:58 Dose: Infused Documented By: BEBO Potassium Chloride (Potassium Chloride/H20) 10 meq in 100 mls @ 100 mls/hr IV Q1H [facility] Stop: 06/21/25 14:14 Last Admin: 06/21/25 11:24 Dose: 100 mls/hr Documented By: BEBO Magnesium Hydroxide (Milk Of Magnesia 30 Ml Oral.Susp) 30 ml PO DAILY PRN PRN Reason: Constipation Melatonin (Melatonin 3 Mg Tablet) 6 mg PO BEDTIME PRN PRN Reason: Insomnia Last Admin: 06/19/25 23:47 Dose: 6 mg Documented By: EDMAR Methylprednisolone Sodium Succinate (Methylprednisolone Sod Succ 40 Mg/Ml Vial) 40 mg IVPUSH Q24H [facility] Last Admin: 06/21/25 11:00 Dose: 40 mg Documented By: BEBO Multivitamins/Vitamin C (Multivitamin Tablet) 1 tab PO DAILY [facility] Last Admin: 06/21/25 09:07 Dose: 1 tab Documented By: BEBO Pt Own (Vibegron [ Gemtesa] 75 Mg Tablet) 75 mg PO DAILY [facility] Last Admin: 06/21/25 09:07 Dose: 75 mg Documented By: BEBO Ondansetron HCl (Ondansetron Hcl 4 Mg/2 Ml Vial) 4 mg IVPUSH Q6H PRN PRN Reason: Nausea and Vomiting Last Admin: 06/19/25 00:24 Dose: 4 mg Documented By: LINDSEY Pantoprazole Sodium (Pantoprazole Sodium 40 Mg/10 Ml Vial) 40 mg IVPUSH BID@0630,1630 [facility] Last Admin: 06/21/25 06:09 Dose: 40 mg Documented By: ANGELICA Pharmacy Consult (Consult Rx Etoh Phenob Po Only) 1 each MISCELLANE ONCE PRN; Protocol PRN Reason: Consult order Phenobarbital (Phenobarbital 15 Mg Tablet) 15 mg PO Q4H PRN PRN Reason: Breakthrough alcohol withdrawa Phenobarbital (Phenobarbital 15 Mg Tablet) 45 mg PO BID [facility]; Protocol Stop: 06/23/25 21:01 Phenobarbital (Phenobarbital 15 Mg Tablet) 15 mg PO BID [facility]; Protocol Stop: 06/25/25 21:01 Phenobarbital (Phenobarbital 15 Mg Tablet) 15 mg PO DAILY [facility]; Protocol Stop: 06/27/25 09:01 Phenobarbital Sodium (Phenobarbital Sodium 130 Mg/Ml Vial Im Q3hx2) 130 mg IM Q3H [facility]; Protocol Stop: 06/21/25 17:01 Potassium Chloride (Potassium Chloride Er 20 Meq Tab.Er.Prt) 20 meq PO BID [facility] Last Admin: 06/21/25 11:01 Dose: 20 meq Documented By: BEBO Sodium Chloride (0.9 % Sodium Chloride Flush 3 Ml Syringe) 3 ml IVFLUSH QSHIFT [facility] Last Admin: 06/21/25 09:12 Dose: 3 ml Documented By: BEBO Labs 06/21/25 08:30 06/21/25 08:30 Labs: Laboratory Results - last 24 hr 06/21/25 08:30 MCV 112.6 H MCH 38.7 H MCHC 34.4 RDW 19.0 H Plt Count 84 L MPV 10.1 Immature Gran % (Auto) 1.9 H Neut % (Auto) 62.8 Lymph % (Auto) 26.8 Whitley % (Auto) 8.2 Eos % (Auto) 0.0 Baso % (Auto) 0.3 Lymph # (Auto) 1.0 L Whitley # (Auto) 0.3 Eos # (Auto) 0.0 Baso # (Auto) 0.0 Abs Immat Gran (auto) 0.07 H Absolute Neuts (auto) 2.3 Absolute Nucleated RBC 0.000 Nucleated RBC % (auto) 0.0 Anion Gap 13 Estim Creat Clear Calc 107.6 Estimated GFR > 60 Random Glucose 117 H Calcium 8.2 L Total Bilirubin 7.8 H AST 135 H ALT 37 H Alkaline Phosphatase 123 H Total Protein 5.7 L Albumin 2.9 L Assessment and Plan (1) Alcohol use disorder: Status: Acute (2) History of cardiomyopathy: Status: Acute (3) Esophagitis: Status: Acute (4) Alcoholic liver failure: Status: Acute (5) Jaundice: Status: Acute (6) Cirrhosis of liver: Status: Acute (7) Ascites: Status: Acute (8) Abdominal distension: Status: Acute (9) Stercoral colitis: Status: Acute (10) Acute cholecystitis: Status: Acute (11) Choledocholithiasis: Status: Acute (12) Delirium tremens: Status: Acute Plan 64-year-old female, with complicated background medical history of alcohol abuse, history of cardiomyopathy, multinodular thyroid, prior esophagitis with hematemesis, alcoholic liver failure, bilateral lower extremity polyneuropathy (likely 2/2 EtOH and nutrition) presenting to hospital with complaints of abdominal pain, admitted for alcohol detox, alcoholic hepatitis, alcoholic gastritis, jaundice, and nutritional deficiency. Alcohol abuse Alcohol withdrawal Delerium tremens CIWA elevated 06/21 Started phenobarbital protocol PLAN - Phenobarbital loading dose - Phenobarbital weaning protocol - PRN phenobarbital 15mg QID - CIWA - thiamine - folic acid - monitor for signs and symptoms of withdrawal - addiction medicine consultation Jaundice Acute cholecystitis Cholelithiasis Choledocholithiasis Suspecting possible painless jaundice, despite multiple discussions of abdominal pain. Portal vein thrombosis has been ruled out with right upper quadrant ultrasonography Abdominal CT revealing hepatomegaly. MRCP performed revealing evidence of acute cholecystitis, with cholelithiasis and choledocholithiasis. PLAN - Surgery consultation - GI consultation - monitor bilirubin - monitor LFTs - Continue antibiotics - Full liquid diet --> clear/ NPO pending surgery reccs Alcoholic hepatitis Alcoholic cirrhosis Portal HTN Ascites Elevated MELD and child Hernandez score. Qualifies for prednisone initiation. Patient unable to tolerate p.o. PLAN - methylprednisolone 40 mg OD IV - transition to prednisone 40 mg OD p.o. when able to tolerate orally - monitor LFTs - GI consultation placed - may require furosemide after nutritionally stabilized - consider spironolactone Constipation Stercoral colitis Possible colonic malignancy Bowel hygiene ordered Empirically initiated metronidazole and ceftriaxone for possibility of stercoral colitis With relief of abdominal ascites, constipation should be relieved. Malnourishment Electrolyte abnormalities Dietary consultation placed Monitor and correct electrolyte abnormalities Thiamine, folic acid, multivitamin started Hypokalemia Hypomagnesemia Replete Basic metabolic panel BID QU[employer] - VTE: Enoxaparin - CODE STATUS: Full code - DIET: Low-sodium Total time managing care of this patient today: 45 minutes. Quality Stroke Does the patient have a stroke diagnosis?: No VTE Prior VTE?: No VTE Risk Level:: Medical - moderate - high VTE Device Contraindication: N/A - Device Ordered VTE Drug Contraindication: Treatment Not Indicated
[2025-06-21 15:11] VITALS: BP 107/61; PULSE 88; RESP 17; TEMP 36.8; O2SAT 95
[2025-06-21] MEDS: PHENobarbitaL sodium 130 MG/ML VIAL IM Q3Hx2 IM ×2 (15:27→17:37)
[2025-06-21 15:31] LABS: Anion Gap 15 (12-20); Blood Urea Nitrogen 8 mg/dL (9-16); Calcium 8.4 mg/dL (8.4-10.2); Carbon Dioxide 23 mmol/L (22-29); Chloride 108 mmol/L (96-108); Creatinine Clr Calc Pharmacy 112.6; Estimated Glomerular Filt Rate > 60; Potassium 3.5 mmol/L (3.3-5.1); Sodium 142 mmol/L (135-145)
[2025-06-21 19:12] VITALS: BP 101/55; PULSE 88; RESP 20; TEMP 36.2; O2SAT 95
[2025-06-21] MEDS: Milk of Magnesia 30 ML ORAL.SUSP PO (21:36)
[2025-06-22] MEDS: metroNIDAZOLE/NS 500 MG/100 ML PIGGYBACK 100 MG IV ×3 (00:13→23:47)
[2025-06-22 04:00] VITALS: BP 118/62; PULSE 83; RESP 15; TEMP 36.4; O2SAT 95
[2025-06-22 06:16] LABS: MANUAL DIFF FLAG NO
[2025-06-22 06:17] LABS: Hematocrit 25.9 % (37.0-47.0); Hemoglobin 9.0 g/dl (12.0-16.0); Imm Gran Abs Auto 0.09 X10*3/uL (0.00-0.03); Imm Gran Pct Auto 1.9 % (0.0-0.4); Lymphocytes Absolute Auto 1.0 X10*3/uL (1.2-4.9); Mean Corpuscular HGB Conc 34.7 g/dl (31.0-35.0); Mean Corpuscular Hemoglobin 38.8 pg (27.0-33.0); NRBC Abs Auto 0.060 X10*3/uL (0.0-0.012); Red Blood Count 2.32 X10*6/uL (4.20-5.50); White Blood Count 4.6 X10*3/uL (4.8-10.8)
[2025-06-22 06:20] LABS: Mean Corpuscular Volume 111.6 fL (80.0-98.0); NRBC Pct Auto 1.3 /100WBC (0.0-0.2); Platelet Count 93 X10*3/uL (160-400)
[2025-06-22 07:07] LABS: Alanine Aminotransferase 46 U/L (0-31); Albumin Level 2.9 g/dL (3.5-5.0); Alkaline Phosphatase 122 U/L (39-117); Anion Gap 13 (12-20); Aspartate Amino Transferase 187 U/L (5-31); Blood Urea Nitrogen 7 mg/dL (9-16); Calcium 8.2 mg/dL (8.4-10.2); Carbon Dioxide 25 mmol/L (22-29); Chloride 106 mmol/L (96-108); Creatinine Clr Calc Pharmacy 110.0; Estimated Glomerular Filt Rate > 60; Potassium 2.9 mmol/L (3.3-5.1); Sodium 141 mmol/L (135-145); Total Protein 5.8 g/dL (6.5-8.0)
[2025-06-22 08:00] VITALS: BP 98/61; PULSE 98; RESP 18; TEMP 36.6; O2SAT 96
[2025-06-22] MEDS: 0.9 % Sodium Chloride Flush 3 ML SYRINGE IVFLUSH ×2 (08:34→21:04)
[2025-06-22] MEDS: PT OWN (Vibegron [Gemtesa] 75 mg tablet) 75 EACH PO (08:34)
[2025-06-22] MEDS: Thiamine HCL 100 MG in 0.9 % Sodium Chloride 100 ML 202 MG IV (08:35)
--- NOTE | 2025-06-22 15:17 | HO.PM.IMPN ---
Subjective Subjective Date of Service: 06/22/25 Interval History: On phenobarbital protocol. CIWA 0 Patient has multiple complaints still, however is circumferential and tangential in her speech. Challenging to redirect patient. No surgical intervention planned at this time, however within 6 weeks Review of Systems Review of Systems: Yes all other systems are reviewed and are negative Physical Exam Exam: Exam: General: A&O x3, oriented to time place person and situation, comfortable, no pain. Jaundiced with scleral icterus. Cardiac: S1, S2 auscultated with no S3/4, no MRG. Well perfused. Respiratory: Decreased breath sounds bilaterally at the bases, with some crepitations auscultated. Otherwise normal breath sounds auscultated throughout remaining lung zones, without wheezing, rales. Normal rate. Platypnoea noted. GI/ : Generalized abdominal distention noted. Generalized pain on light palpation of the abdomen. Hepatomegaly noted. Spider nevi noted. Jaundiced skin. Elevated JVP. MSK: Normal ambulation without pain at bony prominences or musculature Lower extremities: Bilateral lower extremity numbness and tingling to the knees. Neurological: Normal neurological examination on overview, without obvious CN II-XII abnormalities. Psych: Visual hallucinations, anxious Vital Signs: Vital Signs: Last Vital Signs Temp 97.8 F 06/22/25 08:00 Pulse 98 06/22/25 08:00 Resp 18 06/22/25 08:00 BP 98/61 06/22/25 08:00 Pulse Ox 96 06/22/25 08:00 O2 Del Method Room Air 06/22/25 08:00 BMI result Body Mass Index 23.2 Objective Data Active Medications Acetaminophen (Acetaminophen 325 Mg Tablet) 650 mg PO Q6H PRN PRN Reason: Pain, Mild 1-3,fever,headache Calcium Carbonate (Calcium Carbonate 750 Mg Tab.Chew) 750 mg PO Q4H PRN PRN Reason: Heartburn Ceftriaxone Sodium (Ceftriaxone Sodium 1 Gm Vial) 1 gm IVPUSH Q24H [facility] Last Admin: 06/22/25 11:30 Dose: 1 gm Documented By: BEBO Folic Acid (Folic Acid 1 Mg Tablet) 1 mg PO DAILY [facility] Last Admin: 06/22/25 08:34 Dose: 1 mg Documented By: BEBO Metronidazole (Flagyl) 500 mg in 100 mls @ 100 mls/hr IV Q12H [facility] Last Infusion: 06/22/25 12:33 Dose: Infused Documented By: BEBO Thiamine HCl 100 mg/ Sodium (Chloride) 101 mls @ 202 mls/hr IV DAILY [facility] Last Infusion: 06/22/25 09:27 Dose: Infused Documented By: BEBO Magnesium Hydroxide (Milk Of Magnesia 30 Ml Oral.Susp) 30 ml PO DAILY PRN PRN Reason: Constipation Last Admin: 06/21/25 21:36 Dose: 30 ml Documented By: ANGELICA Melatonin (Melatonin 3 Mg Tablet) 6 mg PO BEDTIME PRN PRN Reason: Insomnia Last Admin: 06/22/25 00:26 Dose: 6 mg Documented By: ANGELICA Methylprednisolone Sodium Succinate (Methylprednisolone Sod Succ 40 Mg/Ml Vial) 40 mg IVPUSH Q24H [facility] Last Admin: 06/22/25 11:30 Dose: 40 mg Documented By: BEBO Multivitamins/Vitamin C (Multivitamin Tablet) 1 tab PO DAILY [facility] Last Admin: 06/22/25 08:34 Dose: 1 tab Documented By: BEBO Pt Own (Vibegron [ Gemtesa] 75 Mg Tablet) 75 mg PO DAILY [facility] Last Admin: 06/22/25 08:34 Dose: 75 mg Documented By: BEBO Ondansetron HCl (Ondansetron Hcl 4 Mg/2 Ml Vial) 4 mg IVPUSH Q6H PRN PRN Reason: Nausea and Vomiting Last Admin: 06/19/25 00:24 Dose: 4 mg Documented By: LINDSEY Pantoprazole Sodium (Pantoprazole Sodium 40 Mg/10 Ml Vial) 40 mg IVPUSH BID@0630,1630 [facility] Last Admin: 06/22/25 06:19 Dose: 40 mg Documented By: ANGELICA Pharmacy Consult (Consult Rx Etoh Phenob Po Only) 1 each MISCELLANE ONCE PRN; Protocol PRN Reason: Consult order Phenobarbital (Phenobarbital 15 Mg Tablet) 15 mg PO Q4H PRN PRN Reason: Breakthrough alcohol withdrawa Phenobarbital (Phenobarbital 15 Mg Tablet) 45 mg PO BID [facility]; Protocol Stop: 06/23/25 21:01 Last Admin: 06/22/25 08:34 Dose: 45 mg Documented By: BEBO Phenobarbital (Phenobarbital 15 Mg Tablet) 15 mg PO BID [facility]; Protocol Stop: 06/25/25 21:01 Phenobarbital (Phenobarbital 15 Mg Tablet) 15 mg PO DAILY [facility]; Protocol Stop: 06/27/25 09:01 Potassium Chloride (Potassium Chloride Er 20 Meq Tab.Er.Prt) 20 meq PO BID [facility] Stop: 06/22/25 21:01 Last Admin: 06/22/25 09:28 Dose: Not Given Documented By: BEBO Non-Admin Reason: Patient Refused Sodium Chloride (0.9 % Sodium Chloride Flush 3 Ml Syringe) 3 ml IVFLUSH QSHIFT [facility] Last Admin: 06/22/25 08:34 Dose: 3 ml Documented By: BEBO Labs 06/22/25 05:58 06/22/25 05:58 Labs: Laboratory Results - last 24 hr 06/21/25 06/22/25 14:27 05:58 MCV 111.6 H MCH 38.8 H MCHC 34.7 RDW 19.1 H Plt Count 93 L MPV 9.9 Immature Gran % (Auto) 1.9 H Neut % (Auto) 69.0 Lymph % (Auto) 20.7 [place] % (Auto) 8.0 Eos % (Auto) 0.2 Baso % (Auto) 0.2 Lymph # (Auto) 1.0 L [place] # (Auto) 0.4 Eos # (Auto) 0.0 Baso # (Auto) 0.0 Abs Immat Gran (auto) 0.09 H Absolute Neuts (auto) 3.2 Absolute Nucleated RBC 0.060 H Nucleated RBC % (auto) 1.3 H Anion Gap 15 13 Estim Creat Clear Calc 112.6 110.0 Estimated GFR > 60 > 60 Random Glucose 234 H 125 H Calcium 8.4 8.2 L Total Bilirubin 9.0 H AST 187 H ALT 46 H Alkaline Phosphatase 122 H Total Protein 5.8 L Albumin 2.9 L Assessment and Plan (1) Alcohol use disorder: Status: Acute (2) Delirium tremens: Status: Acute (3) History of cardiomyopathy: Status: Acute (4) Esophagitis: Status: Acute (5) Alcoholic liver failure: Status: Acute (6) Acute cholecystitis: Status: Acute (7) Choledocholithiasis: Status: Acute (8) Stercoral colitis: Status: Acute (9) Ascites: Status: Acute (10) Elevated bilirubin: Status: Acute (11) Fall: Status: Acute (12) Physical deconditioning: Status: Acute Plan 64-year-old female, with complicated background medical history of alcohol abuse, history of cardiomyopathy, multinodular thyroid, prior esophagitis with hematemesis, alcoholic liver failure, bilateral lower extremity polyneuropathy (likely 2/2 EtOH and nutrition) presenting to hospital with complaints of abdominal pain, admitted for alcohol detox, alcoholic hepatitis, alcoholic gastritis, jaundice, and nutritional deficiency. Alcohol abuse Alcohol withdrawal Delerium tremens CIWA elevated 06/21 Started phenobarbital protocol PLAN - Phenobarbital loading dose - Phenobarbital weaning protocol - PRN phenobarbital 15mg QID - CIWA - thiamine - folic acid - monitor for signs and symptoms of withdrawal - addiction medicine consultation Jaundice Acute cholecystitis Cholelithiasis Choledocholithiasis Suspecting possible painless jaundice, despite multiple discussions of abdominal pain. Portal vein thrombosis has been ruled out with right upper quadrant ultrasonography Abdominal CT revealing hepatomegaly. MRCP performed revealing evidence of acute cholecystitis, with cholelithiasis and choledocholithiasis. PLAN - Surgery consultation - GI consultation - monitor bilirubin - monitor LFTs - Continue antibiotics - Full liquid diet --> clear/ NPO pending surgery reccs Alcoholic hepatitis Alcoholic cirrhosis Portal HTN Ascites Elevated MELD and child Hernandez score. Qualifies for prednisone initiation. Patient unable to tolerate p.o. PLAN - methylprednisolone 40 mg OD IV - transition to prednisone 40 mg OD p.o. when able to tolerate orally - monitor LFTs - GI consultation placed - may require furosemide after nutritionally stabilized - consider spironolactone Constipation Stercoral colitis Possible colonic malignancy Bowel hygiene ordered Empirically initiated metronidazole and ceftriaxone for possibility of stercoral colitis With relief of abdominal ascites, constipation should be relieved. Malnourishment Electrolyte abnormalities Dietary consultation placed Monitor and correct electrolyte abnormalities Thiamine, folic acid, multivitamin started Hypokalemia Hypomagnesemia Replete Basic metabolic panel BID QUALITY METRICS - VTE: Enoxaparin - CODE STATUS: Full code - DIET: Low-sodium Total time managing care of this patient today: 45 minutes. Quality Stroke Does the patient have a stroke diagnosis?: No VTE Prior VTE?: No VTE Risk Level:: Medical - moderate - high VTE Device Contraindication: N/A - Device Ordered VTE Drug Contraindication: Treatment Not Indicated
[2025-06-22 15:36] VITALS: BP 106/57; PULSE 85; RESP 16; TEMP 36.8; O2SAT 93
[2025-06-22 19:02] VITALS: BP 104/60; PULSE 96; RESP 17; TEMP 37.1; O2SAT 93
[2025-06-22] MEDS: Potassium Chloride ER 20 MEQ TAB.ER.PRT PO (21:01)
[2025-06-22 21:37] LABS: Potassium 3.7 mmol/L (3.3-5.1)
[2025-06-23 03:52] VITALS: BP 105/63; PULSE 83; RESP 16; TEMP 36.2; O2SAT 95
[2025-06-23 05:48] LABS: MANUAL DIFF FLAG NO
[2025-06-23 05:52] LABS: Hematocrit 26.5 % (37.0-47.0); Hemoglobin 9.1 g/dl (12.0-16.0); Imm Gran Abs Auto 0.07 X10*3/uL (0.00-0.03); Imm Gran Pct Auto 1.4 % (0.0-0.4); Lymphocytes Absolute Auto 0.9 X10*3/uL (1.2-4.9); Mean Corpuscular HGB Conc 34.3 g/dl (31.0-35.0); Mean Corpuscular Hemoglobin 38.2 pg (27.0-33.0); NRBC Abs Auto 0.050 X10*3/uL (0.0-0.012); Red Blood Count 2.38 X10*6/uL (4.20-5.50); White Blood Count 4.9 X10*3/uL (4.8-10.8)
[2025-06-23 05:54] LABS: Mean Corpuscular Volume 111.3 fL (80.0-98.0); NRBC Pct Auto 1.0 /100WBC (0.0-0.2); Platelet Count 95 X10*3/uL (160-400)
[2025-06-23 06:12] LABS: Alanine Aminotransferase 50 U/L (0-31); Albumin Level 2.7 g/dL (3.5-5.0); Alkaline Phosphatase 115 U/L (39-117); Anion Gap 12 (12-20); Aspartate Amino Transferase 150 U/L (5-31); Blood Urea Nitrogen 8 mg/dL (9-16); Calcium 8.3 mg/dL (8.4-10.2); Carbon Dioxide 26 mmol/L (22-29); Chloride 106 mmol/L (96-108); Creatinine Clr Calc Pharmacy 112.6; Estimated Glomerular Filt Rate > 60; Potassium 3.6 mmol/L (3.3-5.1); Sodium 140 mmol/L (135-145); Total Protein 5.4 g/dL (6.5-8.0)
[2025-06-23 08:00] VITALS: BP 115/70; PULSE 80; RESP 18; TEMP 36.1; O2SAT 97
[2025-06-23] MEDS: Thiamine HCL 100 MG in 0.9 % Sodium Chloride 100 ML 202 MG IV (09:11)
[2025-06-23] MEDS: 0.9 % Sodium Chloride Flush 3 ML SYRINGE IVFLUSH ×2 (09:13→17:24)
[2025-06-23] MEDS: PT OWN (Vibegron [Gemtesa] 75 mg tablet) 75 EACH PO (09:22)
[2025-06-23] MEDS: metroNIDAZOLE/NS 500 MG/100 ML PIGGYBACK 100 MG IV (11:41)
--- NOTE | 2025-06-23 13:43 | HO.PM.IMPN ---
Subjective Subjective Date of Service: 06/23/25 Interval History: No sings of withdrawal Review of Systems Review of Systems: Yes all other systems are reviewed and are negative Physical Exam Vital Signs: Vital Signs: Last Vital Signs Temp 96.9 F 06/23/25 08:00 Pulse 80 06/23/25 08:00 Resp 18 06/23/25 08:00 BP 115/70 06/23/25 08:00 Pulse Ox 97 06/23/25 08:00 O2 Del Method Room Air 06/23/25 08:00 BMI result Body Mass Index 23.2 Objective Data Active Medications Acetaminophen (Acetaminophen 325 Mg Tablet) 650 mg PO Q6H PRN PRN Reason: Pain, Mild 1-3,fever,headache Calcium Carbonate (Calcium Carbonate 750 Mg Tab.Chew) 750 mg PO Q4H PRN PRN Reason: Heartburn Ceftriaxone Sodium (Ceftriaxone Sodium 1 Gm Vial) 1 gm IVPUSH Q24H [facility] Last Admin: 06/23/25 11:41 Dose: 1 gm Documented By: PRAVEENA Folic Acid (Folic Acid 1 Mg Tablet) 1 mg PO DAILY [facility] Last Admin: 06/23/25 09:13 Dose: 1 mg Documented By: PRAVEENA Metronidazole (Flagyl) 500 mg in 100 mls @ 100 mls/hr IV Q12H [facility] Last Infusion: 06/23/25 12:47 Dose: Infused Documented By: PRAVEENA Thiamine HCl 100 mg/ Sodium (Chloride) 101 mls @ 202 mls/hr IV DAILY [facility] Last Infusion: 06/23/25 09:51 Dose: Infused Documented By: PRAVEENA Magnesium Hydroxide (Milk Of Magnesia 30 Ml Oral.Susp) 30 ml PO DAILY PRN PRN Reason: Constipation Last Admin: 06/21/25 21:36 Dose: 30 ml Documented By: ANGELICA Melatonin (Melatonin 3 Mg Tablet) 6 mg PO BEDTIME PRN PRN Reason: Insomnia Last Admin: 06/22/25 00:26 Dose: 6 mg Documented By: ANGELICA Methylprednisolone Sodium Succinate (Methylprednisolone Sod Succ 40 Mg/Ml Vial) 40 mg IVPUSH Q24H [facility] Last Admin: 06/23/25 11:41 Dose: 40 mg Documented By: PRAVEENA Multivitamins/Vitamin C (Multivitamin Tablet) 1 tab PO DAILY [facility] Last Admin: 06/23/25 09:13 Dose: 1 tab Documented By: PRAVEENA Pt Own (Vibegron [ Gemtesa] 75 Mg Tablet) 75 mg PO DAILY [facility] Last Admin: 06/23/25 09:22 Dose: 75 mg Documented By: PRAVEENA Ondansetron HCl (Ondansetron Hcl 4 Mg/2 Ml Vial) 4 mg IVPUSH Q6H PRN PRN Reason: Nausea and Vomiting Last Admin: 06/19/25 00:24 Dose: 4 mg Documented By: LINDSEY Pharmacy Consult (Consult Rx Etoh Phenob Po Only) 1 each MISCELLANE ONCE PRN; Protocol PRN Reason: Consult order Phenobarbital (Phenobarbital 15 Mg Tablet) 15 mg PO Q4H PRN PRN Reason: Breakthrough alcohol withdrawa Phenobarbital (Phenobarbital 15 Mg Tablet) 45 mg PO BID [facility]; Protocol Stop: 06/23/25 21:01 Last Admin: 06/23/25 09:12 Dose: 45 mg Documented By: PRAVEENA Phenobarbital (Phenobarbital 15 Mg Tablet) 15 mg PO BID [facility]; Protocol Stop: 06/25/25 21:01 Phenobarbital (Phenobarbital 15 Mg Tablet) 15 mg PO DAILY [facility]; Protocol Stop: 06/27/25 09:01 Sodium Chloride (0.9 % Sodium Chloride Flush 3 Ml [facility]) [facility] Admin: 06/23/25 09:13 Dose: 3 ml Documented By: PRAVEENA Labs 06/23/25 05:29 06/23/25 05:29 Labs: Laboratory Results - last 24 hr 06/23/25 05:29 MCV 111.3 H MCH 38.2 H MCHC 34.3 RDW 19.6 H Plt Count 95 L MPV 9.9 Immature Gran % (Auto) 1.4 H Neut % (Auto) 68.3 Lymph % (Auto) 18.2 L [place] % (Auto) 11.7 H Eos % (Auto) 0.2 Baso % (Auto) 0.2 Lymph # (Auto) 0.9 L [place] # (Auto) 0.6 Eos # (Auto) 0.0 Baso # (Auto) 0.0 Abs Immat Gran (auto) 0.07 H Absolute Neuts (auto) 3.3 Absolute Nucleated RBC 0.050 H Nucleated RBC % (auto) 1.0 H Anion Gap 12 Estim Creat Clear Calc 112.6 Estimated GFR > 60 Random Glucose 142 H Calcium 8.3 L Total Bilirubin 8.3 H AST 150 H ALT 50 H Alkaline Phosphatase 115 Total Protein 5.4 L Albumin 2.7 L Assessment and Plan (1) Alcohol use disorder: Status: Acute (2) Delirium tremens: Status: Acute (3) History of cardiomyopathy: Status: Acute (4) Esophagitis: Status: Acute (5) Alcoholic liver failure: Status: Acute (6) Acute cholecystitis: Status: Acute (7) Choledocholithiasis: Status: Acute (8) Stercoral colitis: Status: Acute (9) Ascites: Status: Acute (10) Elevated bilirubin: Status: Acute (11) Fall: Status: Acute (12) Physical deconditioning: Status: Acute Plan 64-year-old female, with complicated background medical history of alcohol abuse, history of cardiomyopathy, multinodular thyroid, prior esophagitis with hematemesis, alcoholic liver failure, bilateral lower extremity polyneuropathy (likely 2/2 EtOH and nutrition) presenting to hospital with complaints of abdominal pain, admitted for alcohol detox, alcoholic hepatitis, alcoholic gastritis, jaundice, and nutritional deficiency. Alcohol abuse Alcohol withdrawal Delerium tremens -Treated with Phenobarb, no sings of withdrawal at this time, Etoh abstinence discussed Jaundice Acute cholecystitis Cholelithiasis Choledocholithiasis -No portal vein thrombosisis -MRCP performed revealing evidence of acute cholecystitis, with cholelithiasis and choledocholithiasis. -Seen by surgery no evidence of cholecystitis Alcoholic hepatitis Alcoholic cirrhosis Portal HTN Ascites Elevated MELD and child Hernandez score. Qualifies for prednisone initiation. Patient unable to tolerate p.o. - methylprednisolone 40 mg OD IV, jeffrey to PO - transition to prednisone 40 mg OD p.o. when able to tolerate orally - monitor LFTs - GI consultation placed - may require furosemide after nutritionally stabilized - consider spironolactone Constipation Stercoral colitis Possible colonic malignancy Bowel hygiene ordered Empirically initiated metronidazole and ceftriaxone for possibility of stercoral colitis With relief of abdominal ascites, constipation should be relieved. Malnourishment Electrolyte abnormalities Dietary consultation placed Monitor and correct electrolyte abnormalities Thiamine, folic acid, multivitamin started Hypokalemia Hypomagnesemia Replete Basic metabolic panel BID QUAL[employer] - VTE: Enoxaparin - CODE STATUS: Full code - DIET: Low-sodium Total time managing care of this patient today: 45 minutes. Quality Stroke Does the patient have a stroke diagnosis?: No VTE Prior VTE?: No VTE Risk Level:: Medical - moderate - high VTE Device Contraindication: N/A - Device Ordered VTE Drug Contraindication: Treatment Not Indicated
--- NOTE | 2025-06-23 14:51 | MHC.CM.PN ---
Patient qualifies for STR. She has received a bed offer from her 1st choice [facility]. They will accept the patient Monday06/24/25. DP To [facility] for STR via BLS.
[2025-06-23 16:00] VITALS: BP 105/68; PULSE 91; RESP 20; TEMP 36.6; O2SAT 96
[2025-06-23 20:00] VITALS: BP 105/57; PULSE 88; RESP 20; TEMP 36.7; O2SAT 98
[2025-06-24 03:58] VITALS: BP 101/55; PULSE 80; RESP 18; TEMP 36.4; O2SAT 94
[2025-06-24 05:42] LABS: MANUAL DIFF FLAG NO
[2025-06-24 05:46] LABS: Hematocrit 27.4 % (37.0-47.0); Hemoglobin 9.3 g/dl (12.0-16.0); Imm Gran Abs Auto 0.07 X10*3/uL (0.00-0.03); Imm Gran Pct Auto 1.2 % (0.0-0.4); Lymphocytes Absolute Auto 0.9 X10*3/uL (1.2-4.9); Mean Corpuscular HGB Conc 33.9 g/dl (31.0-35.0); Mean Corpuscular Hemoglobin 38.0 pg (27.0-33.0); NRBC Abs Auto 0.040 X10*3/uL (0.0-0.012); NRBC Pct Auto 0.7 /100WBC (0.0-0.2); Platelet Count 108 X10*3/uL (160-400); Red Blood Count 2.45 X10*6/uL (4.20-5.50); White Blood Count 6.0 X10*3/uL (4.8-10.8)
[2025-06-24 05:49] LABS: Mean Corpuscular Volume 111.8 fL (80.0-98.0)
--- NOTE | 2025-06-24 06:02 | PC.NURSE ---
Late entry: Approximately after 21:00, this RN went to pt room to give ADELIA bedtime medications. Pt is currently on phenobarb and CIWA for alcohol use. Pt refused to take her ADELIA phenobarb. This RN educated pt the importance of taking the medication and how it's helping her with withdrawals. Pt still refused medication after being educated with this RN. LOUISE Carmichael was notified of the situation and came to pt's bedside. Pt continued to refused medication after she was seen with the PA. Will continue to monitor pt's CIWA, cardiac telemetry, and behavior.
[2025-06-24 06:10] LABS: Alanine Aminotransferase 51 U/L (0-31); Albumin Level 2.8 g/dL (3.5-5.0); Alkaline Phosphatase 117 U/L (39-117); Anion Gap 9 (12-20); Aspartate Amino Transferase 143 U/L (5-31); Blood Urea Nitrogen 10 mg/dL (9-16); Calcium 8.3 mg/dL (8.4-10.2); Carbon Dioxide 25 mmol/L (22-29); Chloride 107 mmol/L (96-108); Creatinine Clr Calc Pharmacy 118.1; Estimated Glomerular Filt Rate > 60; Potassium 3.4 mmol/L (3.3-5.1); Sodium 138 mmol/L (135-145); Total Protein 5.5 g/dL (6.5-8.0)
[2025-06-24 07:18] VITALS: BP 105/58; PULSE 85; RESP 16; TEMP 37; O2SAT 94
[2025-06-24] MEDS: Thiamine HCL 100 MG in 0.9 % Sodium Chloride 100 ML 202 MG IV (08:43)
[2025-06-24] MEDS: PT OWN (Vibegron [Gemtesa] 75 mg tablet) 75 EACH PO (08:44)
[2025-06-24] MEDS: 0.9 % Sodium Chloride Flush 3 ML SYRINGE IVFLUSH ×2 (08:44→20:25)
--- NOTE | 2025-06-24 10:29 | P.PNIM_ITS ---
Subjective Subjective Date of Service: 06/25/25 Interval History: No new complaint, Tbili remains high Physical Exam 2 Vital Signs: Vital Signs: Last Vital Signs Temp 98.6 F 06/24/25 07:18 Pulse 85 06/24/25 07:18 Resp 16 06/24/25 07:18 BP 105/58 L 06/24/25 07:18 Pulse Ox 94 06/24/25 07:18 O2 Del Method Room Air 06/24/25 07:18 BMI result Body Mass Index 23.2 Objective Data Active Medications Acetaminophen (Acetaminophen 325 Mg Tablet) 650 mg PO Q6H PRN PRN Reason: Pain, Mild 1-3,fever,headache Calcium Carbonate (Calcium Carbonate 750 Mg Tab.Chew) 750 mg PO Q4H PRN PRN Reason: Heartburn Ceftriaxone Sodium (Ceftriaxone Sodium 1 Gm Vial) 1 gm IVPUSH Q24H [facility] Last Admin: 06/23/25 11:41 Dose: 1 gm Documented By: PRAVEENA Folic Acid (Folic Acid 1 Mg Tablet) 1 mg PO DAILY [facility] Last Admin: 06/24/25 08:43 Dose: 1 mg Documented By: PRAVEENA Thiamine HCl 100 mg/ Sodium (Chloride) 101 mls @ 202 mls/hr IV DAILY [facility] Last Infusion: 06/24/25 09:18 Dose: Infused Documented By: PRAVEENA Magnesium Hydroxide (Milk Of Magnesia 30 Ml Oral.Susp) 30 ml PO DAILY PRN PRN Reason: Constipation Last Admin: 06/21/25 21:36 Dose: 30 ml Documented By: ANGELICA Melatonin (Melatonin 3 Mg Tablet) 6 mg PO BEDTIME PRN PRN Reason: Insomnia Last Admin: 06/22/25 00:26 Dose: 6 mg Documented By: ANGELICA Methylprednisolone Sodium Succinate (Methylprednisolone Sod Succ 40 Mg/Ml Vial) 40 mg IVPUSH Q24H [facility] Last Admin: 06/23/25 11:41 Dose: 40 mg Documented By: PRAVEENA Metronidazole (Metronidazole 500 Mg Tablet) 500 mg PO BID [facility] Last Admin: 06/24/25 08:52 Dose: 500 mg Documented By: PRAVEENA Multivitamins/Vitamin C (Multivitamin Tablet) 1 tab PO DAILY [facility] Last Admin: 06/24/25 08:43 Dose: 1 tab Documented By: PRAVEENA Pt Own (Vibegron [ Gemtesa] 75 Mg Tablet) 75 mg PO DAILY [facility] Last Admin: 06/24/25 08:44 Dose: 75 mg Documented By: PRAVEENA Ondansetron HCl (Ondansetron Hcl 4 Mg/2 Ml Vial) 4 mg IVPUSH Q6H PRN PRN Reason: Nausea and Vomiting Last Admin: 06/23/25 21:55 Dose: 4 mg Documented By: JAYLA Pharmacy Consult (Consult Rx Etoh Phenob Po Only) 1 each MISCELLANE ONCE PRN; Protocol PRN Reason: Consult order Phenobarbital (Phenobarbital 15 Mg Tablet) 15 mg PO Q4H PRN PRN Reason: Breakthrough alcohol withdrawa Phenobarbital (Phenobarbital 15 Mg Tablet) 15 mg PO BID [facility]; Protocol Stop: 06/25/25 21:01 Last Admin: 06/24/25 08:52 Dose: Not Given Documented By: PRAVEENA Non-Admin Reason: Patient Refused Phenobarbital (Phenobarbital 15 Mg Tablet) 15 mg PO DAILY [facility]; Protocol Stop: 06/27/25 09:01 Sodium Chloride (0.9 % Sodium Chloride Flush 3 Ml Syringe) 3 ml IVFLUSH QSWAFT [facility] Last Admin: 06/24/25 08:44 Dose: 3 ml Documented By: PRAVEENA Labs 06/25/25 06:13 06/25/25 06:13 Labs: Laboratory Results - last 24 hr 06/24/25 05:23 MCV 111.8 H MCH 38.0 H MCHC 33.9 RDW 19.6 H Plt Count 108 L MPV 9.8 Immature Gran % (Auto) 1.2 H Neut % (Auto) 69.7 Lymph % (Auto) 15.4 L [place] % (Auto) 13.2 H Eos % (Auto) 0.3 Baso % (Auto) 0.2 Lymph # (Auto) 0.9 L [place] # (Auto) 0.8 Eos # (Auto) 0.0 Baso # (Auto) 0.0 Abs Immat Gran (auto) 0.07 H Absolute Neuts (auto) 4.2 Absolute Nucleated RBC 0.040 H Nucleated RBC % (auto) 0.7 H Anion Gap 9 L Estim Creat Clear Calc 118.1 Estimated GFR > 60 Random Glucose 149 H Calcium 8.3 L Total Bilirubin 9.4 H AST 143 H ALT 51 H Alkaline Phosphatase 117 Total Protein 5.5 L Albumin 2.8 L Assessment and Plan (1) Alcohol use disorder: Status: Acute (2) Delirium tremens: Status: Acute (3) History of cardiomyopathy: Status: Acute (4) Esophagitis: Status: Acute (5) Alcoholic liver failure: Status: Acute (6) Acute cholecystitis: Status: Acute (7) Choledocholithiasis: Status: Acute (8) Stercoral colitis: Status: Acute (9) Ascites: Status: Acute (10) Elevated bilirubin: Status: Acute (11) Fall: Status: Acute (12) Physical deconditioning: Status: Acute Plan 64-year-old female with a history of alcohol abuse, cardiomyopathy, multinodular thyroid, prior esophagitis with hematemesis, alcoholic liver failure, bilateral lower extremity polyneuropathy (likely secondary to alcohol and nutritional deficiency), presenting with abdominal pain. Admitted for alcohol detox, alcoholic hepatitis, alcoholic gastritis, jaundice, and nutritional deficiency. Alcohol abuse / withdrawal / delirium tremens: Treated with phenobarbital; no current signs of withdrawal. Alcohol abstinence discussed. Jaundice / Acute cholecystitis / Cholelithiasis / Choledocholithiasis: MRCP: Acute cholecystitis, cholelithiasis, choledocholithiasis--in the correct setting; no portal vein thrombosis. Surgery consulted; no clinical evidence of acute cholecystitis or choledocholithiasis on exam and no intervention needed Alcoholic hepatitis / cirrhosis / portal hypertension / ascites: Elevated MELD and Child-Hernandez scores; qualifies for corticosteroid therapy. Continue Prednisone, Monitor LFTs, Tbili rising, Previously seen by GI and will reconsult May require furosemide and consider spironolactone after nutritional stabilization. repeat US, check INR, ammonia Constipation / stercoral colitis / possible colonic malignancy: Bowel regimen initiated. Empiric metronidazole and ceftriaxone for possible stercoral colitis. Constipation expected to improve with relief of ascites. Malnutrition / electrolyte abnormalities: Dietary consult Monitor and correct electrolytes. continue on thiamine, folic acid, and multivitamin. Hypokalemia / hypomagnesemia: Replete as needed. Quality Metrics: * VTE prophylaxis: Enoxaparin * Code status: Full code * Diet: Low-sodium Summary: Patient is being managed for alcohol withdrawal, hepatic and biliary complications, malnutrition, and electrolyte disturbances. Multidisciplinary care ongoing. Total time managing care of this patient today: 45 minutes. Quality Stroke Does the patient have a stroke diagnosis?: No VTE Prior VTE?: No VTE Risk Level:: Medical - moderate - high VTE Device Contraindication: N/A - Device Ordered VTE Drug Contraindication: Treatment Not Indicated
[2025-06-24 15:58] VITALS: BP 100/54; PULSE 98; RESP 19; TEMP 36.7; O2SAT 95
[2025-06-24 20:00] VITALS: BP 96/57; PULSE 99; RESP 19; TEMP 36.9; O2SAT 97
[2025-06-25 02:59] VITALS: BP 109/56; PULSE 89; RESP 18; TEMP 36.7; O2SAT 97
[2025-06-25 07:37] LABS: MANUAL DIFF FLAG NO
[2025-06-25 07:40] VITALS: BP 106/59; PULSE 84; RESP 16; TEMP 36.6; O2SAT 92
[2025-06-25 07:45] LABS: Hematocrit 31.6 % (37.0-47.0); Hemoglobin 10.8 g/dl (12.0-16.0); Imm Gran Abs Auto 0.09 X10*3/uL (0.00-0.03); Imm Gran Pct Auto 1.5 % (0.0-0.4); Lymphocytes Absolute Auto 1.3 X10*3/uL (1.2-4.9); Mean Corpuscular HGB Conc 34.2 g/dl (31.0-35.0); Mean Corpuscular Hemoglobin 38.4 pg (27.0-33.0); NRBC Abs Auto 0.000 X10*3/uL (0.0-0.012); NRBC Pct Auto 0.0 /100WBC (0.0-0.2); Platelet Count 133 X10*3/uL (160-400); Red Blood Count 2.81 X10*6/uL (4.20-5.50); White Blood Count 5.9 X10*3/uL (4.8-10.8)
[2025-06-25 07:46] LABS: Mean Corpuscular Volume 112.5 fL (80.0-98.0)
[2025-06-25 08:25] LABS: Alanine Aminotransferase 52 U/L (0-31); Albumin Level 3.1 g/dL (3.5-5.0); Alkaline Phosphatase 131 U/L (39-117); Anion Gap 11 (12-20); Aspartate Amino Transferase 134 U/L (5-31); Blood Urea Nitrogen 11 mg/dL (9-16); Calcium 8.7 mg/dL (8.4-10.2); Carbon Dioxide 26 mmol/L (22-29); Chloride 104 mmol/L (96-108); Creatinine Clr Calc Pharmacy 98.8; Estimated Glomerular Filt Rate > 60; Potassium 3.3 mmol/L (3.3-5.1); Sodium 138 mmol/L (135-145); Total Protein 6.1 g/dL (6.5-8.0)
[2025-06-25] MEDS: Thiamine HCL 100 MG in 0.9 % Sodium Chloride 100 ML 202 MG IV (09:35)
[2025-06-25] MEDS: 0.9 % Sodium Chloride Flush 3 ML SYRINGE IVFLUSH ×3 (09:35→21:55)
[2025-06-25] MEDS: PT OWN (Vibegron [Gemtesa] 75 mg tablet) 75 EACH PO (09:40)
[2025-06-25 09:52] LABS: Magnesium 1.6 mg/dL (1.6-2.6)
[2025-06-25 10:05] LABS: Ammonia 31 umol/L (13-55)
[2025-06-25 10:07] LABS: INTERNATIONAL NORM RATIO 2.5 (0.9-1.1); Prothrombin Time 28.5 SEC (10.9-12.4)
[2025-06-25 15:39] VITALS: BP 111/61; PULSE 92; RESP 16; TEMP 36.7; O2SAT 98
--- NOTE | 2025-06-25 16:27 | MHC.CM.PN ---
Patient is not medically cleared to discharge. LFT continue to trend up. GI consult and Ultra sound planned. DP [facility] via BLS.
[2025-06-25 19:16] LABS: Appearance Urine Cloudy; Glucose Urine UA >=1000 mg/dL (Negative); PH 5.5 (5.0-9.0); Specific Gravity - Urine >= 1.030 (1.005-1.025); UMIC TRIGGER UACC YES
[2025-06-25 19:37] LABS: UACC Culture Trigger YES
[2025-06-25 19:55] VITALS: BP 106/58; PULSE 85; RESP 16; TEMP 36.6; O2SAT 99
[2025-06-26 03:13] VITALS: BP 116/57; PULSE 84; RESP 16; TEMP 36.2
[2025-06-26] MEDS: Thiamine HCL 100 MG in 0.9 % Sodium Chloride 100 ML 202 MG IV (08:06)
[2025-06-26] MEDS: 0.9 % Sodium Chloride Flush 3 ML SYRINGE IVFLUSH ×3 (08:07→20:43)
[2025-06-26] MEDS: PT OWN (Vibegron [Gemtesa] 75 mg tablet) 75 EACH PO (08:08)
[2025-06-26 08:14] VITALS: BP 115/69; PULSE 94; RESP 18; TEMP 36.4; O2SAT 96
--- NOTE | 2025-06-26 09:45 | P.PNIM_ITS ---
Subjective Subjective Date of Service: 06/26/25 Interval History: No new issues no confusion Physical Exam 2 Exam: Exam: General: AO X 3, no acute distress HEENT: yellow slcear Resp: CTA bilateral CVS: S1,S2,RRR GI: +BS, NT, moderate abd distention c/w ascietes Skin: No rash Neuro: motor grossly intact Psych: appropriate affect Vital Signs: Vital Signs: Last Vital Signs Temp 97.6 F 06/26/25 08:14 Pulse 94 06/26/25 08:14 Resp 18 06/26/25 08:14 BP 115/69 06/26/25 08:14 Pulse Ox 96 06/26/25 08:14 O2 Del Method Room Air 06/26/25 08:14 BMI result Body Mass Index 23.2 Objective Data Active Medications Acetaminophen (Acetaminophen 325 Mg Tablet) 650 mg PO Q6H PRN PRN Reason: Pain, Mild 1-3,fever,headache Calcium Carbonate (Calcium Carbonate 750 Mg Tab.Chew) 750 mg PO Q4H PRN PRN Reason: Heartburn Ceftriaxone Sodium (Ceftriaxone Sodium 1 Gm Vial) 1 gm IVPUSH Q24H [facility] Last Admin: 06/25/25 12:16 Dose: 1 gm Documented By: KEVIN Folic Acid (Folic Acid 1 Mg Tablet) 1 mg PO DAILY [facility] Last Admin: 06/26/25 08:07 Dose: 1 mg Documented By: BUBBA Thiamine HCl 100 mg/ Sodium (Chloride) 101 mls @ 202 mls/hr IV DAILY [facility] Last Infusion: 06/26/25 08:50 Dose: Infused Documented By: BUBBA Magnesium Hydroxide (Milk Of Magnesia 30 Ml Oral.Susp) 30 ml PO DAILY PRN PRN Reason: Constipation Last Admin: 06/21/25 21:36 Dose: 30 ml Documented By: ANGELICA Melatonin (Melatonin 3 Mg Tablet) 6 mg PO BEDTIME PRN PRN Reason: Insomnia Last Admin: 06/22/25 00:26 Dose: 6 mg Documented By: ANGELICA Metronidazole (Metronidazole 500 Mg Tablet) 500 mg PO BID [facility] Last Admin: 06/26/25 08:07 Dose: 500 mg Documented By: BUBBA Multivitamins/Vitamin C (Multivitamin Tablet) 1 tab PO DAILY [facility] Last Admin: 06/26/25 08:07 Dose: 1 tab Documented By: BUBBA Pt Own (Vibegron [ Gemtesa] 75 Mg Tablet) 75 mg PO DAILY [facility] Last Admin: 06/26/25 08:08 Dose: 75 mg Documented By: BUBBA Omeprazole (Omeprazole 20 Mg Capsule.Dr) 20 mg PO DAILY@0630 [facility] Last Admin: 06/26/25 06:04 Dose: 20 mg Documented By: SHANNON Ondansetron HCl (Ondansetron Hcl 4 Mg/2 Ml Vial) 4 mg IVPUSH Q6H PRN PRN Reason: Nausea and Vomiting Last Admin: 06/23/25 21:55 Dose: 4 mg Documented By: JAYLA Pharmacy Consult (Consult Rx Etoh Phenob Po Only) 1 each MISCELLANE ONCE PRN; Protocol PRN Reason: Consult order Phenobarbital (Phenobarbital 15 Mg Tablet) 15 mg PO Q4H PRN PRN Reason: Breakthrough alcohol withdrawa Phenobarbital (Phenobarbital 15 Mg Tablet) 15 mg PO DAILY [facility]; Protocol Stop: 06/27/25 09:01 Last Admin: 06/26/25 08:50 Dose: Not Given Documented By: BUBBA Non-Admin Reason: Patient Refused Prednisone (Prednisone 20 Mg Tablet) 40 mg PO DAILY [facility] Last Admin: 06/26/25 08:07 Dose: 40 mg Documented By: BUBBA Sodium Chloride (0.9 % Sodium Chloride Flush 3 Ml Syringe) 3 ml IVFLUSH QSHIFT [facility] Last Admin: 06/26/25 08:07 Dose: 3 ml Documented By: BUBBA Labs 06/25/25 06:13 06/25/25 06:13 Labs: Laboratory Results - last 24 hr 06/25/25 06/25/25 06/25/25 06:13 09:52 19:00 PT 28.5 H D INR 2.5 H Magnesium 1.6 Ammonia 31 Urine Color Dark Yellow Urine Appearance Cloudy Urine pH 5.5 Ur Specific [place] >= 1.030 H Urine Protein 100 (2+) H Urine Glucose (UA) >=1000 H Urine Ketones 15 Urine Blood Negative Urine Nitrite Positive H Ur Leukocyte Esterase Moderate (2+) H Urine RBC 0-2 Urine WBC 0-5 Ur Squamous Epith Cells 3-5 Urine Bacteria None Seen Hyaline Casts 0-2 Urine Yeast Present Assessment and Plan (1) Alcohol use disorder: Status: Acute (2) Delirium tremens: Status: Acute (3) History of cardiomyopathy: Status: Acute (4) Esophagitis: Status: Acute (5) Alcoholic liver failure: Status: Acute (6) Acute cholecystitis: Status: Acute (7) Choledocholithiasis: Status: Acute (8) Stercoral colitis: Status: Acute (9) Ascites: Status: Acute (10) Elevated bilirubin: Status: Acute (11) Fall: Status: Acute (12) Physical deconditioning: Status: Acute Plan 64-year-old female with a history of alcohol abuse, cardiomyopathy, multinodular thyroid, prior esophagitis with hematemesis, alcoholic liver failure, bilateral lower extremity polyneuropathy (likely secondary to alcohol and nutritional deficiency), presenting with abdominal pain. Admitted for alcohol detox, alcoholic hepatitis, alcoholic gastritis, jaundice, and nutritional deficiency. Alcohol abuse / withdrawal / delirium tremens, resolved. Treated with phenobarbital; no current signs of withdrawal. Alcohol abstinence discussed. Jaundice / Acute cholecystitis / Cholelithiasis / Choledocholithiasis: MRCP: Acute cholecystitis, cholelithiasis, choledocholithiasis--in the correct setting; no portal vein thrombosis. Surgery consulted; no clinical evidence of acute cholecystitis or choledocholithiasis on exam and no intervention needed Alcoholic hepatitis / cirrhosis / portal hypertension / ascites: Elevated MELD and Child-Hernandez scores; qualifies for corticosteroid therapy. Continue Prednisone, Monitor LFTs, Tbili rising, Previously seen by GI and will reconsult May require furosemide and consider spironolactone after nutritional stabilization. repeat US 06/25 moderate ascietes, check INR 2.5 , ammoniab 31 Constipation / stercoral colitis / possible colonic malignancy: Bowel regimen initiated. Empiric metronidazole and ceftriaxone for possible stercoral colitis. Constipation expected to improve with relief of ascites. Malnutrition / electrolyte abnormalities: Dietary consult Monitor and correct electrolytes. continue on thiamine, folic acid, and multivitamin. Hypokalemia / hypomagnesemia: Replete as needed. Quality Metrics: * VTE prophylaxis: Enoxaparin * Code status: Full code * Diet: Low-sodium Summary: Patient is being managed for alcohol withdrawal, hepatic and biliary complications, malnutrition, and electrolyte disturbances. Multidisciplinary care ongoing. Total time managing care of this patient today: 45 minutes. Quality Stroke Does the patient have a stroke diagnosis?: No VTE Prior VTE?: No VTE Risk Level:: Medical - moderate - high VTE Device Contraindication: N/A - Device Ordered VTE Drug Contraindication: Treatment Not Indicated
[2025-06-26 16:13] VITALS: BP 106/56; PULSE 90; RESP 12; TEMP 36.1; O2SAT 96
[2025-06-26 19:02] LABS: OBS Int Ctl Valid YES; OBS1 POSITIVE (NEGATIVE)
[2025-06-26 20:00] VITALS: BP 123/57; PULSE 89; RESP 16; TEMP 36.4; O2SAT 98
[2025-06-27 03:13] VITALS: BP 104/60; PULSE 76; RESP 14; TEMP 36.2; O2SAT 99
[2025-06-27 07:53] VITALS: BP 94/55; PULSE 78; RESP 14; TEMP 36.1; O2SAT 98
[2025-06-27] MEDS: 0.9 % Sodium Chloride Flush 3 ML SYRINGE IVFLUSH ×3 (09:03→19:22)
[2025-06-27] MEDS: PT OWN (Vibegron [Gemtesa] 75 mg tablet) 75 EACH PO (09:04)
[2025-06-27] MEDS: Thiamine HCL 100 MG in 0.9 % Sodium Chloride 100 ML 202 MG IV (09:04)
--- NOTE | 2025-06-27 11:48 | HO.PM.IMPN ---
Subjective Subjective Date of Service: 06/27/25 Interval History: Feeling good s/p paracentesis yesterday no confusion Physical Exam Exam: Exam: General: AO X 3, no acute distress HEENT: yellow slcear Resp: CTA bilateral CVS: S1,S2,RRR GI: +BS, NT, moderate abd distention c/w ascietes Skin: No rash Neuro: motor grossly intact Psych: appropriate affect Vital Signs: Vital Signs: Last Vital Signs Temp 96.9 F 06/27/25 07:53 Pulse 78 06/27/25 07:53 Resp 14 06/27/25 07:53 BP 94/55 L 06/27/25 07:53 Pulse Ox 98 06/27/25 07:53 O2 Del Method Room Air 06/27/25 07:53 BMI result Body Mass Index 23.2 Objective Data Active Medications Acetaminophen (Acetaminophen 325 Mg Tablet) 650 mg PO Q6H PRN PRN Reason: Pain, Mild 1-3,fever,headache Calcium Carbonate (Calcium Carbonate 750 Mg Tab.Chew) 750 mg PO Q4H PRN PRN Reason: Heartburn Ceftriaxone Sodium (Ceftriaxone Sodium 1 Gm Vial) 1 gm IVPUSH Q24H [facility] Last Admin: 06/27/25 11:41 Dose: 1 gm Documented By: BUBBA Folic Acid (Folic Acid 1 Mg Tablet) 1 mg PO DAILY [facility] Last Admin: 06/27/25 09:03 Dose: 1 mg Documented By: BUBBA Thiamine HCl 100 mg/ Sodium (Chloride) 101 mls @ 202 mls/hr IV DAILY [facility] Last Infusion: 06/27/25 09:35 Dose: Infused Documented By: BUBBA Magnesium Hydroxide (Milk Of Magnesia 30 Ml Oral.Susp) 30 ml PO DAILY PRN PRN Reason: Constipation Last Admin: 06/21/25 21:36 Dose: 30 ml Documented By: ANGELICA Melatonin (Melatonin 3 Mg Tablet) 6 mg PO BEDTIME PRN PRN Reason: Insomnia Last Admin: 06/22/25 00:26 Dose: 6 mg Documented By: ANGELICA Metronidazole (Metronidazole 500 Mg Tablet) 500 mg PO BID [facility] Last Admin: 06/27/25 09:03 Dose: 500 mg Documented By: BUBBA Multivitamins/Vitamin C (Multivitamin Tablet) 1 tab PO DAILY [facility] Last Admin: 06/27/25 09:03 Dose: 1 tab Documented By: BUBBA Pt Own (Vibegron [ Gemtesa] 75 Mg Tablet) 75 mg PO DAILY [facility] Last Admin: 06/27/25 09:04 Dose: 75 mg Documented By: BUBBA Omeprazole (Omeprazole 20 Mg Capsule.Dr) 20 mg PO DAILY@0630 [facility] Last Admin: 06/27/25 06:06 Dose: 20 mg Documented By: ANGELICA Ondansetron HCl (Ondansetron Hcl 4 Mg/2 Ml Vial) 4 mg IVPUSH Q6H PRN PRN Reason: Nausea and Vomiting Last Admin: 06/23/25 21:55 Dose: 4 mg Documented By: JAYLA Pharmacy Consult (Consult Rx Etoh Phenob Po Only) 1 each MISCELLANE ONCE PRN; Protocol PRN Reason: Consult order Phenobarbital (Phenobarbital 15 Mg Tablet) 15 mg PO Q4H PRN PRN Reason: Breakthrough alcohol withdrawa Prednisone (Prednisone 20 Mg Tablet) 40 mg PO DAILY [facility] Last Admin: 06/27/25 09:03 Dose: 40 mg Documented By: BUBBA Sodium Chloride (0.9 % Sodium Chloride Flush 3 Ml Syringe) 3 ml IVFLUSH QSHIFT [facility] Last Admin: 06/27/25 09:03 Dose: 3 ml Documented By: BUBBA Labs 06/25/25 06:13 06/27/25 12:13 Labs: Laboratory Results - last 24 hr 06/26/25 18:44 Stool Occult Blood POSITIVE Microbiology Microbiology Results: Microbiology 06/25/25 19:39 Urine Culture - Preliminary Urine clean catch - Clean Catch Midstream Culture in progress. Assessment and Plan (1) Alcohol use disorder: Status: Acute (2) Delirium tremens: Status: Acute (3) History of cardiomyopathy: Status: Acute (4) Esophagitis: Status: Acute (5) Alcoholic liver failure: Status: Acute (6) Acute cholecystitis: Status: Acute (7) Choledocholithiasis: Status: Acute (8) Stercoral colitis: Status: Acute (9) Ascites: Status: Acute (10) Elevated bilirubin: Status: Acute (11) Fall: Status: Acute (12) Physical deconditioning: Status: Acute Plan 64-year-old female with a history of alcohol abuse, cardiomyopathy, multinodular thyroid, prior esophagitis with hematemesis, alcoholic liver failure, bilateral lower extremity polyneuropathy (likely secondary to alcohol and nutritional deficiency), presenting with abdominal pain. Admitted for alcohol detox, alcoholic hepatitis, alcoholic gastritis, jaundice, and nutritional deficiency. Alcohol abuse / withdrawal / delirium tremens, resolved. Treated with phenobarbital; no current signs of withdrawal. Alcohol abstinence discussed. Jaundice / Acute cholecystitis / Cholelithiasis / Choledocholithiasis: MRCP: Acute cholecystitis, cholelithiasis, choledocholithiasis--in the correct setting; no portal vein thrombosis. Surgery consulted; no clinical evidence of acute cholecystitis or choledocholithiasis on exam and no intervention needed Alcoholic hepatitis / cirrhosis / portal hypertension / ascites: Elevated MELD and Child-Hernandez scores; qualifies for corticosteroid therapy. Continue Prednisone, Monitor LFTs, Tbili rising, Previously seen by GI and will reconsult May require furosemide and consider spironolactone after nutritional stabilization. repeat US 06/25 moderate ascietes, check INR 2.5 , ammoniab 31 Constipation / stercoral colitis / possible colonic malignancy: Bowel regimen initiated. Empiric metronidazole and ceftriaxone for possible stercoral colitis. Constipation expected to improve with relief of ascites. Malnutrition / electrolyte abnormalities: Monitor and correct electrolytes. continue on thiamine, folic acid, and multivitamin. Hypokalemia / hypomagnesemia: Replete as needed. Quality Metrics: VTE prophylaxis: Enoxaparin Code status: Full code Diet: Low-sodium Summary: Patient is being managed for alcohol withdrawal, hepatic and biliary complications, malnutrition, and electrolyte disturbances. Multidisciplinary care ongoing. Total time managing care of this patient today: 45 minutes. Quality Stroke Does the patient have a stroke diagnosis?: No VTE Prior VTE?: No VTE Risk Level:: Medical - moderate - high VTE Device Contraindication: N/A - Device Ordered VTE Drug Contraindication: Treatment Not Indicated
[2025-06-27 12:39] LABS: Anion Gap 12 (12-20); Blood Urea Nitrogen 9 mg/dL (9-16); Calcium 8.4 mg/dL (8.4-10.2); Carbon Dioxide 23 mmol/L (22-29); Chloride 104 mmol/L (96-108); Creatinine Clr Calc Pharmacy 127.4; Estimated Glomerular Filt Rate > 60; Potassium 3.3 mmol/L (3.3-5.1); Sodium 136 mmol/L (135-145)
--- NOTE | 2025-06-27 12:43 | MHC.CM.PN ---
Per MD rounds Patient is not medically clear to discharge today. MD anticipates Patient will not be medically clear this weekend. DP to [facility] for STR via BLS.
[2025-06-27 13:18] LABS: Alanine Aminotransferase 43 U/L (0-31); Albumin Level 2.9 g/dL (3.5-5.0); Alkaline Phosphatase 120 U/L (39-117); Aspartate Amino Transferase 114 U/L (5-31); Total Protein 6.3 g/dL (6.5-8.0)
[2025-06-27] MEDS: Lidocaine HCl 1 % MPF 5 ML VIAL SUBCUT (14:36)
[2025-06-27 14:48] LABS: MN% 84.1 %; PMN% 15.9 %; WBC Peritoneal Fluid 0.144 X10*3/uL
[2025-06-27 15:59] VITALS: BP 106/57; PULSE 84; RESP 12; TEMP 37.2; O2SAT 97
--- NOTE | 2025-06-27 16:01 | P.CDIM_ITS ---
PROVIDER RESPONSE TEXT: To clarify, the appropriate diagnosis supported by the clinical indicators: Malnutrition: moderate QUERY TEXT: PHYSICIAN'S DOCUMENTATION REQUEST Date of Query: 06/26/2025 09:16 AM EDT Patient Name: Nubia Bell Admit Date: 06/19/2025 Dear Jim Ho MD, A review of the medical record indicates additional documentation may be needed. Please review below and update the documentation accordingly. Clinical indicators: Progress note 06/24/25 - Malnutrition/electrolyte abnormalities Monitor and correct electrolytes Patient is being managed for alcohol withdrawal, hepatic and biliary complications, malnutrition and electrolyte disturbances. BMI 23.2 WT: 61.2kg To ensure the quality of the medical record, based on the above information possible to provide further specificity to the documented Malnutrition? Malnutrition mild, moderate, severe Other specifics Other (explain) Clinically unable to determine (explain) Thank you, Erika Ortiz, CCS, CDIS Use of terms such as suspected, likely, concern for, or probable (associated with a specific diagnosis that is being evaluated, monitored, or treated as if it exists) are acceptable and can be coded in the inpatient setting, when documented at the time of discharge. Please use your independent medical judgment in providing your response. THIS QUERY IS PART OF THE PERMANENT MEDICAL RECORD
--- NOTE | 2025-06-27 16:01 | P.CDIM_ITS ---
PROVIDER RESPONSE TEXT: To clarify, the appropriate diagnosis supported by the clinical indicators: Mild QUERY TEXT: PHYSICIAN'S DOCUMENTATION REQUEST Date of Query: 06/24/2025 05:25 AM EDT Patient Name: Nubia Bell Admit Date: 06/19/2025 Dear Jim Ho MD, A review of the medical record indicates additional documentation may be needed. Please review below and update the documentation accordingly. Documentation includes the diagnosis of malnutrition. Progress note dated 06/22/25 - Malnourishment Dietary consult placed. Monitor and correct electrolyte abnormalities. Total Protein 5.4 Albumin 2.7 BMI 23.2 If possible, please provide additional specificity regarding the severity of the malnutrition using the above information: Mild Moderate Severe Other (explain) Clinically unable to determine (explain) Thank you, Erika Ortiz, CCS, CDIS Use of terms such as suspected, likely, concern for, or probable (associated with a specific diagnosis that is being evaluated, monitored, or treated as if it exists) are acceptable and can be coded in the inpatient setting, when documented at the time of discharge. Please use your independent medical judgment in providing your response. THIS QUERY IS PART OF THE PERMANENT MEDICAL RECORD
[2025-06-27 16:30] LABS: Lymphocyte Peritoneal Fl 20 %; Neutrophils Peritoneal Fluid 12 %
[2025-06-27 16:31] LABS: BF Shift QC OK YES; Monocytes Peritoneal Fl 13 %; Other Peritioneal Fl 55 %
[2025-06-27 19:06] VITALS: BP 104/59; PULSE 85; RESP 20; TEMP 36.1; O2SAT 98
[2025-06-28 03:16] VITALS: BP 108/56; PULSE 79; RESP 18; TEMP 36; O2SAT 96
[2025-06-28 07:36] VITALS: BP 97/52; PULSE 80; RESP 16; TEMP 36.4; O2SAT 99
[2025-06-28 07:46] LABS: INTERNATIONAL NORM RATIO 2.2 (0.9-1.1); Prothrombin Time 25.2 SEC (10.9-12.4)
[2025-06-28 08:00] LABS: Alanine Aminotransferase 40 U/L (0-31); Albumin Level 2.8 g/dL (3.5-5.0); Alkaline Phosphatase 125 U/L (39-117); Aspartate Amino Transferase 101 U/L (5-31); Total Protein 5.7 g/dL (6.5-8.0)
[2025-06-28] MEDS: PT OWN (Vibegron [Gemtesa] 75 mg tablet) 75 EACH PO (09:33)
[2025-06-28] MEDS: Thiamine HCL 100 MG in 0.9 % Sodium Chloride 100 ML 202 MG IV (09:34)
[2025-06-28] MEDS: 0.9 % Sodium Chloride Flush 3 ML SYRINGE IVFLUSH ×2 (09:39→19:53)
[2025-06-28 15:37] VITALS: BP 118/56; PULSE 89; RESP 18; TEMP 36.4; O2SAT 98
[2025-06-28 19:51] VITALS: BP 105/56; PULSE 82; RESP 18; TEMP 36.3; O2SAT 94
[2025-06-29 04:00] VITALS: BP 117/61; PULSE 95; RESP 18; TEMP 36.3; O2SAT 95
[2025-06-29 07:02] VITALS: BP 103/56; PULSE 81; RESP 16; TEMP 36.8; O2SAT 98
[2025-06-29] MEDS: Thiamine HCL 100 MG in 0.9 % Sodium Chloride 100 ML 202 MG IV (09:03)
[2025-06-29] MEDS: 0.9 % Sodium Chloride Flush 3 ML SYRINGE IVFLUSH ×2 (09:04→22:46)
[2025-06-29] MEDS: PT OWN (Vibegron [Gemtesa] 75 mg tablet) 75 EACH PO (09:04)
--- NOTE | 2025-06-29 10:07 | HO.PM.IMPN ---
Subjective Subjective Date of Service: 06/29/25 Interval History: Has no new complaint, urine culture: Enteroccocus, and yeast Physical Exam Exam: Exam: General: AO X 3, no acute distress HEENT: yellow slcear Resp: CTA bilateral CVS: S1,S2,RRR GI: +BS, NT, moderate abd distention c/w ascietes Skin: No rash Neuro: motor grossly intact Psych: appropriate affect Vital Signs: Vital Signs: Last Vital Signs Temp 98.3 F 06/29/25 07:02 Pulse 81 06/29/25 07:02 Resp 16 06/29/25 07:02 BP 103/56 L 06/29/25 07:02 Pulse Ox 98 06/29/25 07:02 O2 Del Method Room Air 06/29/25 07:02 O2 Flow Rate 2 06/29/25 04:00 BMI result Body Mass Index 23.2 Objective Data Active Medications Acetaminophen (Acetaminophen 325 Mg Tablet) 650 mg PO Q6H PRN PRN Reason: Pain, Mild 1-3,fever,headache Calcium Carbonate (Calcium Carbonate 750 Mg Tab.Chew) 750 mg PO Q4H PRN PRN Reason: Heartburn Ceftriaxone Sodium (Ceftriaxone Sodium 1 Gm Vial) 1 gm IVPUSH Q24H [facility] Last Admin: 06/28/25 11:42 Dose: 1 gm Documented By: PRAVEENA Folic Acid (Folic Acid 1 Mg Tablet) 1 mg PO DAILY [facility] Last Admin: 06/29/25 09:03 Dose: 1 mg Documented By: PRAVEENA Thiamine HCl 100 mg/ Sodium (Chloride) 101 mls @ 202 mls/hr IV DAILY [facility] Last Infusion: 06/29/25 09:43 Dose: Infused Documented By: PRAVEENA Magnesium Hydroxide (Milk Of Magnesia 30 Ml Oral.Susp) 30 ml PO DAILY PRN PRN Reason: Constipation Last Admin: 06/21/25 21:36 Dose: 30 ml Documented By: ANGELICA Melatonin (Melatonin 3 Mg Tablet) 6 mg PO BEDTIME PRN PRN Reason: Insomnia Last Admin: 06/22/25 00:26 Dose: 6 mg Documented By: ANGELICA Metronidazole (Metronidazole 500 Mg Tablet) 500 mg PO BID [facility] Last Admin: 06/29/25 09:03 Dose: 500 mg Documented By: PRAVEENA Multivitamins/Vitamin C (Multivitamin Tablet) 1 tab PO DAILY [facility] Last Admin: 06/29/25 09:04 Dose: 1 tab Documented By: PRAVEENA Pt Own (Vibegron [ Gemtesa] 75 Mg Tablet) 75 mg PO DAILY [facility] Last Admin: 06/29/25 09:04 Dose: 75 mg Documented By: PRAVEENA Omeprazole (Omeprazole 20 Mg Capsule.Dr) 20 mg PO DAILY@0630 [facility] Last Admin: 06/29/25 05:43 Dose: 20 mg Documented By: LEFEBTC Ondansetron HCl (Ondansetron Hcl 4 Mg/2 Ml Vial) 4 mg IVPUSH Q6H PRN PRN Reason: Nausea and Vomiting Last Admin: 06/23/25 21:55 Dose: 4 mg Documented By: JAYLA Pharmacy Consult (Consult Rx Etoh Phenob Po Only) 1 each MISCELLANE ONCE PRN; Protocol PRN Reason: Consult order Phenobarbital (Phenobarbital 15 Mg Tablet) 15 mg PO Q4H PRN PRN Reason: Breakthrough alcohol withdrawa Prednisone (Prednisone 20 Mg Tablet) 40 mg PO DAILY [facility] Last Admin: 06/29/25 09:03 Dose: 40 mg Documented By: PRAVEENA Sodium Chloride (0.9 % Sodium Chloride Flush 3 Ml Syringe) 3 ml IVFLUSH QSHIFT [facility] Last Admin: 06/29/25 09:04 Dose: 3 ml Documented By: PRAVEENA Labs 06/25/25 06:13 06/27/25 12:13 Labs: Laboratory Results - last 24 hr 06/26/25 18:44 Stool Occult Blood POSITIVE Microbiology Microbiology Results: Microbiology 06/25/25 19:39 Urine Culture - Final Urine clean catch - Clean Catch Midstream Lilian albicans Enterococcus faecium 06/27/25 13:55 Gram Stain - Final Ascites Fluid Anaerobic Culture - Preliminary No growth to date. Body Fluid Culture - Final No growth after 2 days Assessment and Plan (1) Alcohol use disorder: Status: Acute (2) Delirium tremens: Status: Acute (3) History of cardiomyopathy: Status: Acute (4) Esophagitis: Status: Acute (5) Alcoholic liver failure: Status: Acute (6) Acute cholecystitis: Status: Acute (7) Choledocholithiasis: Status: Acute (8) Stercoral colitis: Status: Acute (9) Ascites: Status: Acute (10) Elevated bilirubin: Status: Acute (11) Fall: Status: Acute (12) Physical deconditioning: Status: Acute Plan 64-year-old female with a history of alcohol abuse, cardiomyopathy, multinodular thyroid, prior esophagitis with hematemesis, alcoholic liver failure, bilateral lower extremity polyneuropathy (likely secondary to alcohol and nutritional deficiency), presenting with abdominal pain. Admitted for alcohol detox, alcoholic hepatitis, alcoholic gastritis, jaundice, and nutritional deficiency. Alcohol abuse / withdrawal / delirium tremens, resolved. Treated with phenobarbital; no current signs of withdrawal. Alcohol abstinence discussed. Jaundice / Acute cholecystitis / Cholelithiasis / Choledocholithiasis: MRCP: Acute cholecystitis, cholelithiasis, choledocholithiasis--in the correct setting; no portal vein thrombosis. Surgery consulted; no clinical evidence of acute cholecystitis or choledocholithiasis on exam and no intervention needed Alcoholic hepatitis / cirrhosis / portal hypertension / ascites: Elevated MELD and Child-Hernandez scores; qualifies for corticosteroid therapy. Continue Prednisone, Monitor LFTs, Tbili rising, Previously seen by GI and will reconsult May require furosemide and consider spironolactone after nutritional stabilization. repeat US 06/25 moderate ascietes, 1. 5 remove, no evidence of infection Enterococcus UTI , resistant ampicillin, levaquin.. Sensitive to Macrobid but contraindicated due to acute liver failure. start Vanco consiser ID consult Yeast is likely colonization and need no treatment at this time Constipation / stercoral colitis / possible colonic malignancy: Bowel regimen initiated. Empiric metronidazole and ceftriaxone for possible stercoral colitis since 06/23, stop today Malnutrition / electrolyte abnormalities: Monitor and correct electrolytes. continue on thiamine, folic acid, and multivitamin. Hypokalemia / hypomagnesemia: Replete as needed. Quality Metrics: VTE prophylaxis: Enoxaparin Code status: Full code Diet: Low-sodium Summary: Patient is being managed for alcohol withdrawal, hepatic and biliary complications, malnutrition, and electrolyte disturbances. Multidisciplinary care ongoing. Total time managing care of this patient today: 45 minutes. Quality Stroke Does the patient have a stroke diagnosis?: No VTE Prior VTE?: No VTE Risk Level:: Medical - moderate - high VTE Device Contraindication: N/A - Device Ordered VTE Drug Contraindication: Treatment Not Indicated
[2025-06-29 13:17] LABS: Creatinine Clr Calc Pharmacy 138.3; Estimated Glomerular Filt Rate > 60
--- NOTE | 2025-06-29 13:47 | PHA.PROG ---
Addendum entered by Berenice Mayo zarina 06/29/25 13:48: dose is 20.4 mg/kg which is on the higher side of dosing. will get a level after 1 dose and the load to ensure safety vs efficacy Original Note: Admission Date/Time: June 18, 2025 22:07 Indication: other Weight in k.2 kg Adjusted body weight in Kg: Hunter body weight in Kg: Obesity Dosing Indication % IBW: Serum Creatinine - Last 168 Hours 06/23/25 06/24/25 06/25/25 05:29 05:23 06:13 Creatinine 0.43 L 0.41 L 0.49 L 06/27/25 06/29/25 12:13 12:23 Creatinine 0.38 L 0.35 L Estimated CrCl and GFR - Last 168 Hours 06/23/25 06/24/25 06/25/25 05:29 05:23 06:13 Estim Creat Clear Calc 112.6 118.1 98.8 Estimated GFR > 60 > 60 > 60 06/27/25 06/29/25 12:13 12:23 Estim Creat Clear Calc 127.4 138.3 Estimated GFR > 60 > 60 Vancomycin Loading Dose: 1500 Current Vancomycin Dosing Regimen: 1250 Q12H Vancomycin Monitoring using AUC goal of 400 - 600 range with trough as surrogate marker: 463 Date and Time for next Vancomycin Level to be drawn: 06/30 @0900 Pharmacist Comments on Vancomycin Plan: Vancomycin dosing will take advantage of [employer] as a clinical decision support tool that uses Bayesian modeling to calculate individual patient's pharmacokinetic parameters and forecast the patient's drug concentration time course with the target goal AUC 24 range of 400 - 600 mg/L/hr.
--- NOTE | 2025-06-29 14:15 | P.PNGI_ITS ---
Subjective Subjective Date of Service: 06/29/25 Interval History: 64 YF with EtOH abuse with alcoholic hepatitis complicated by thrombocytopenia and ascites, cardiomyopathy, multinodular thyroid, GERD with esophagitis, essential hypertension, HFpEF and peripheral neuropathy (secondary to alcohol and nutritional def) admitted to [facility] on 06/18/25 complaining of multiple symptoms - dark urine, abdominal distention, on and off chest pain and shortness on breath with exertion. Pt was started on prednisone on admission. GI re-consulted due to elevated bilirubin FROM 8.3 ON 06/23/25 to 14.4 (DB 10.2) on 06/27 Repeat TB 13.3 today 06/20/25 MRCP SHOWED: Common bile duct measures 5 mm. There are intraluminal hypointense T2 signal abnormality is in the distal common bile duct. Moderate amount of ascites. Moderate volume hiatal hernia. IMPRESSION: Cholelithiasis and choledocholithiasis with likely acute cholecystitis in the correct clinical setting. Hepatic steatosis and concerning cirrhosis. Moderate amount of ascites. Hiatal hernia, moderate volume. Surgery consulted; no clinical evidence of acute cholecystitis or choledocholithiasis on exam and no intervention needed Critical Care Time (minutes): 17 Physical Exam 2 Vital Signs: Vital Signs: Last Vital Signs Temp 98.3 F 06/29/25 07:02 Pulse 81 06/29/25 07:02 Resp 16 06/29/25 07:02 BP 103/56 L 06/29/25 07:02 Pulse Ox 98 06/29/25 07:02 O2 Del Method Room Air 06/29/25 07:02 O2 Flow Rate 2 06/29/25 04:00 BMI result Body Mass Index 23.2 Const: General: no acute distress and ill appearing chronically Nutritional Appearance: average body habitus Orientation/consciousness: patient oriented x3 Limitations: no limitations HEENT: Head: Yes normal to inspection Ears: hearing grossly normal bilaterally Eyes: Sclerae: scleral abnormal (Jaundice) Pupils: Equal, round and reactive pupils present Neck: Neck: Yes normal visual inspection Chest: Chest palpation & inspection: normal inspection of the chest Resp: Effort & Inspection: normal respiratory effort Auscultation: clear to auscultation bilaterally Cardio: Palpation: normal PMI Rate: regular rate Rhythm: regular rhythm Heart sounds: S1 normal heart sound present, S2 normal heart sound present and no murmurs GI: Inspection: Yes distended (Due to ascites) Palpation (GI): Soft to palpation, nontender and No hepatosplenomegaly present Auscultation: normal bowel sounds Rectal Exam - Female: deferred Skin: General skin exam: no rashes or lesions noted Neuro: General: patient oriented x3, gait normal and moves all extremities Cranial nerves: Yes Equal, round and reactive pupils present Extrem: General: Yes pedal edema (trace pitting edema) Psych: Appearance: grossly normal Mental Status: mental status grossly normal Objective Data Labs 06/29/25 12:23 06/30/25 09:02 Labs: Laboratory Results - last 24 hr 06/29/25 12:23 Hold Purple Top SEE NOTE Creatinine 0.35 L Estim Creat Clear Calc 138.3 Estimated GFR > 60 Microbiology Microbiology Results: Microbiology 06/25/25 19:39 Urine clean catch - Clean Catch Midstream Urine Culture - Final Lilian albicans Enterococcus faecium 06/27/25 13:55 Ascites Fluid Gram Stain - Final 06/27/25 13:55 Ascites Fluid Anaerobic Culture - Preliminary No growth to date. 06/27/25 13:55 Ascites Fluid Body Fluid Culture - Final No growth after 2 days Procedures Date of Service Date of Service: 06/30/25 Progress Note: A&P Assessment and plan (1) Alcoholic liver failure: Status: Acute (2) Esophagitis: Status: Acute (3) Ascites: Status: Acute Plan 64 YF with EtOH abuse with alcoholic hepatitis complicated by thrombocytopenia and ascites, cardiomyopathy, multinodular thyroid, GERD with esophagitis, essential hypertension, HFpEF and peripheral neuropathy (secondary to alcohol and nutritional def) admitted to [facility] on 06/18/25 complaining of multiple symptoms - dark urine, abdominal distention, on and off chest pain and shortness on breath with exertion. Pt was started on prednisone on admission. GI re-consulted due to elevated bilirubin FROM 8.3 ON 06/23/25 to 14.4 (DB 10.2) on 06/27 Repeat TB 13.3 today Paracentesis performed by IR and AF analysis was negative for SBP Surgery consulted; no clinical evidence of acute cholecystitis or choledocholithiasis on exam and no intervention needed RECOMMENDATIONS: 1. Continue Prednisone 40 mg PO for another 2 weeks and taper by 10 mg every week over 4 weeks 2. Start low dose diuretics - Lasix 20 mg and spironolactone 25 mg daily for ascites - order placed. 3. ETOH rehab once pt is stable 4. Continue to monitor LFTs since pt is not having any abdominal pain at present and hold off ERCP (Pt reviewed with Dr Parker) FU in GI clinic after discharge. Time Spent With Patient Time: Total time managing care of this patient today ____ minutes. Quality Stroke Does the patient have a stroke diagnosis?: No VTE Prior VTE?: No VTE Risk Level:: Medical - moderate - high VTE Device Contraindication: N/A - Device Ordered VTE Drug Contraindication: Treatment Not Indicated
[2025-06-29 16:00] VITALS: BP 113/65; PULSE 87; RESP 16; TEMP 36.8; O2SAT 95
[2025-06-29 19:53] VITALS: BP 118/64; PULSE 87; RESP 18; TEMP 37.2; O2SAT 96
[2025-06-30 03:08] VITALS: BP 117/59; PULSE 90; RESP 16; TEMP 36.5; O2SAT 97
[2025-06-30 07:06] LABS: Albumin Peritoneal Fluid 1.0
[2025-06-30 07:08] LABS: Creatinine Clr Calc Pharmacy 98.8; Estimated Glomerular Filt Rate > 60
[2025-06-30 07:57] VITALS: BP 104/59; PULSE 90; RESP 18; TEMP 36.4; O2SAT 96
[2025-06-30] MEDS: PT OWN (Vibegron [Gemtesa] 75 mg tablet) 75 EACH PO (08:46)
[2025-06-30] MEDS: 0.9 % Sodium Chloride Flush 3 ML SYRINGE IVFLUSH ×3 (08:54→23:23)
[2025-06-30] MEDS: Thiamine HCL 100 MG in 0.9 % Sodium Chloride 100 ML 202 MG IV (08:56)
[2025-06-30 09:52] LABS: Alanine Aminotransferase 39 U/L (0-31); Albumin Level 2.7 g/dL (3.5-5.0); Alkaline Phosphatase 113 U/L (39-117); Aspartate Amino Transferase 98 U/L (5-31); Total Protein 5.8 g/dL (6.5-8.0)
--- NOTE | 2025-06-30 09:55 | HE.PHANOTE ---
Re: Vanco Renal has significantly declined. Trough returned at 17.8, pt is supra-therapeutic. Dose reduced to 1500mg q24h (predicted AUC 572, predicted trough 12.5) to start at 2300. Next trough 07/01 @ 2100.
--- NOTE | 2025-06-30 10:33 | HO.PM.IMPN ---
Subjective Subjective Date of Service: 06/30/25 Interval History: Has no new complaint LFTs essentially unchanged Physical Exam Exam: Exam: General: AO X 3, no acute distress HEENT: yellow slcear Resp: CTA bilateral CVS: S1,S2,RRR GI: +BS, NT, moderate abd distention c/w ascietes Skin: No rash Neuro: motor grossly intact Psych: appropriate affect Vital Signs: Vital Signs: Last Vital Signs Temp 97.5 F 06/30/25 07:57 Pulse 90 06/30/25 07:57 Resp 18 06/30/25 07:57 BP 104/59 L 06/30/25 07:57 Pulse Ox 96 06/30/25 07:57 O2 Del Method Room Air 06/30/25 07:57 O2 Flow Rate 2 06/29/25 04:00 BMI result Body Mass Index 23.2 Objective Data Active Medications Acetaminophen (Acetaminophen 325 Mg Tablet) 650 mg PO Q6H PRN PRN Reason: Pain, Mild 1-3,fever,headache Calcium Carbonate (Calcium Carbonate 750 Mg Tab.Chew) 750 mg PO Q4H PRN PRN Reason: Heartburn Folic Acid (Folic Acid 1 Mg Tablet) 1 mg PO DAILY ADELIA Last Admin: 06/30/25 09:33 Dose: 1 mg Documented By: KRISTYN Furosemide (Furosemide 20 Mg Tablet) 20 mg PO DAILY ADELIA; Protocol Last Admin: 06/30/25 08:45 Dose: 20 mg Documented By: KRISTYN Thiamine HCl 100 mg/ Sodium (Chloride) 101 mls @ 202 mls/hr IV DAILY ADELIA Last Infusion: 06/30/25 09:31 Dose: Infused Documented By: KRITSYN Vancomycin HCl 1,500 mg/ (Sodium Chloride) 500 mls @ 333.333 mls/hr IV Q24H ADELIA Magnesium Hydroxide (Milk Of Magnesia 30 Ml Oral.Susp) 30 ml PO DAILY PRN PRN Reason: Constipation Last Admin: 06/21/25 21:36 Dose: 30 ml Documented By: ANGELICA Melatonin (Melatonin 3 Mg Tablet) 6 mg PO BEDTIME PRN PRN Reason: Insomnia Last Admin: 06/22/25 00:26 Dose: 6 mg Documented By: ANGELICA Multivitamins/Vitamin C (Multivitamin Tablet) 1 tab PO DAILY ADELIA Last Admin: 06/30/25 09:33 Dose: 1 tab Documented By: KRISTYN Pt Own (Vibegron [ Gemtesa] 75 Mg Tablet) 75 mg PO DAILY [facility] Last Admin: 06/30/25 08:46 Dose: 75 mg Documented By: KRISTYN Omeprazole (Omeprazole 20 Mg Capsule.Dr) 20 mg PO DAILY@0630 [facility] Last Admin: 06/30/25 05:48 Dose: 20 mg Documented By: SAVAGE Ondansetron HCl (Ondansetron Hcl 4 Mg/2 Ml Vial) 4 mg IVPUSH Q6H PRN PRN Reason: Nausea and Vomiting Last Admin: 06/23/25 21:55 Dose: 4 mg Documented By: JAYLA Pharmacy Consult (Consult Rx Etoh Phenob Po Only) 1 each MISCELLANE ONCE PRN; Protocol PRN Reason: Consult order Pharmacy Consult (Consult Rx Vancomycin Dosing) 1 each MISCELLANE DAILY PRN PRN Reason: Consult order Prednisone (Prednisone 20 Mg Tablet) 40 mg PO DAILY [facility] Last Admin: 06/30/25 08:45 Dose: 40 mg Documented By: KRISTYN Sodium Chloride (0.9 % Sodium Chloride Flush 3 Ml Syringe) 3 ml IVFLUSH QSHIFT [facility] Last Admin: 06/30/25 08:54 Dose: 3 ml Documented By: KRISTYN Spironolactone (Spironolactone 25 Mg Tablet) 25 mg PO DAILY [facility]; Protocol Last Admin: 06/30/25 08:44 Dose: 25 mg Documented By: KRISTYN Labs 06/25/25 06:13 06/30/25 06:11 Labs: Laboratory Results - last 24 hr 06/27/25 06/29/25 06/30/25 13:55 12:23 06:11 Hold Purple Top SEE NOTE Estim Creat Clear Calc 138.3 98.8 Estimated GFR > 60 > 60 Total Bilirubin Direct Bilirubin AST ALT Alkaline Phosphatase Total Protein Albumin Peritoneal Tot Protein 1.2 Peritoneal Albumin 1.0 Peritoneal LDH 49 Peritoneal Glucose 161 Random Vancomycin 06/30/25 09:02 Hold Purple Top Estim Creat Clear Calc Estimated GFR Total Bilirubin 14.6 H Direct Bilirubin 10.5 H AST 98 H ALT 39 H Alkaline Phosphatase 113 Total Protein 5.8 L Albumin 2.7 L Peritoneal Tot Protein Peritoneal Albumin Peritoneal LDH Peritoneal Glucose Random Vancomycin 17.8 Microbiology Microbiology Results: Microbiology 06/27/25 13:55 Gram Stain - Final Ascites Fluid Anaerobic Culture - Preliminary No growth to date. Body Fluid Culture - Final No growth after 2 days 06/25/25 19:39 Urine Culture - Final Urine clean catch - Clean Catch Midstream Lilian albicans Enterococcus faecium Assessment and Plan (1) Alcohol use disorder: Status: Acute (2) Delirium tremens: Status: Acute (3) History of cardiomyopathy: Status: Acute (4) Esophagitis: Status: Acute (5) Alcoholic liver failure: Status: Acute (6) Acute cholecystitis: Status: Acute (7) Choledocholithiasis: Status: Acute (8) Stercoral colitis: Status: Acute (9) Ascites: Status: Acute (10) Elevated bilirubin: Status: Acute (11) Fall: Status: Acute (12) Physical deconditioning: Status: Acute Plan 64/F w/ h/o Etoh abuse, cardiomyopathy, multinodular thyroid, prior esophagitis with hematemesis, alcoholic liver failure, bilateral lower extremity polyneuropathy (likely secondary to alcohol and nutritional deficiency), presenting with abdominal pain. Admitted for alcohol detox, alcoholic hepatitis, alcoholic gastritis, jaundice, and nutritional deficiency. Alcohol abuse / withdrawal / delirium tremens, resolved. Treated with phenobarbital; no current signs of withdrawal. Alcohol abstinence discussed. Jaundice / Acute cholecystitis / Cholelithiasis / Choledocholithiasis: MRCP: Acute cholecystitis, cholelithiasis, choledocholithiasis--in the correct setting; no portal vein thrombosis. Surgery consulted; no clinical evidence of acute cholecystitis or choledocholithiasis on exam and no intervention needed Alcoholic hepatitis / cirrhosis / portal hypertension / ascites/Jaundice MRCP: ? Choleycysitis/choledocholithiasis/cholelithiasis in the apr Clinically no evidence of cholecystitis or choloedocholithiasis. See by surgery and no intervention needed Based on high MELD score: has been on Prednisone. LFTS trending down, but Tbili remains high GI is following and on last reassement on 06/[address] Burrows the following recommendation was made: 1. Continue Prednisone 40 mg PO for another 2 weeks and taper by 10 mg every week over 4 weeks 2. Start low dose diuretics - Lasix 20 mg and spironolactone 25 mg daily for ascites - order placed. 3. ETOH rehab once pt is stable Ascietes A therapeutic paracentesis of 1. 5 L removal was done on 06/27, no evidence of SBP at that time continue Lasixs and Aldactone Enterococcus UTI--Sensitive to Macrobid and Vanco, Macrobid contraindicated due to liver failure. IV Vanco for now, ID consult Yeast in urine likely colonizaition Constipation / stercoral colitis Bowel regimen Treated with Empiric metronidazole and ceftriaxone for possible stercoral colitis since 06/23, stopped on 06/29 Malnutrition / electrolyte abnormalities: Monitor and correct electrolytes. continue on thiamine, folic acid, and multivitamin. Nutritional boost Hypokalemia / hypomagnesemia: Replete as needed. Quality Metrics: VTE prophylaxis: Enoxaparin Code status: Full code Diet: Low-sodium Summary: treatment for Hepatic failure, resitant UTI needing IV Vanco Total time managing care of this patient today: 45 minutes. Quality Stroke Does the patient have a stroke diagnosis?: No VTE Prior VTE?: No VTE Risk Level:: Medical - moderate - high VTE Device Contraindication: N/A - Device Ordered VTE Drug Contraindication: Treatment Not Indicated
[2025-06-30 11:06] LABS: Anion Gap 14 (12-20); Carbon Dioxide 20 mmol/L (22-29); Chloride 106 mmol/L (96-108); Potassium 3.0 mmol/L (3.3-5.1); Sodium 137 mmol/L (135-145)
[2025-06-30 11:06] LABS: MANUAL DIFF FLAG NO
[2025-06-30 11:11] LABS: Hematocrit 31.7 % (37.0-47.0); Hemoglobin 10.7 g/dl (12.0-16.0); Imm Gran Abs Auto 0.06 X10*3/uL (0.00-0.03); Imm Gran Pct Auto 0.5 % (0.0-0.4); Lymphocytes Absolute Auto 0.7 X10*3/uL (1.2-4.9); Mean Corpuscular HGB Conc 33.8 g/dl (31.0-35.0); Mean Corpuscular Hemoglobin 38.2 pg (27.0-33.0); Mean Corpuscular Volume 113.2 fL (80.0-98.0); NRBC Abs Auto 0.000 X10*3/uL (0.0-0.012); NRBC Pct Auto 0.0 /100WBC (0.0-0.2); Platelet Count 209 X10*3/uL (160-400); Red Blood Count 2.80 X10*6/uL (4.20-5.50); White Blood Count 11.3 X10*3/uL (4.8-10.8)
[2025-06-30 11:30] LABS: Magnesium 1.5 mg/dL (1.6-2.6)
[2025-06-30] MEDS: Potassium Chloride Packet 20 MEQ PACKET 40 MEQ PO (15:28)
[2025-06-30] MEDS: Magnesium Sulfate/H2O 2 GM/50 ML PIGGYBACK IV (15:31)
[2025-06-30 16:00] VITALS: BP 115/69; PULSE 97; RESP 20; TEMP 37; O2SAT 96
--- NOTE | 2025-06-30 16:20 | MHC.CM.PN ---
PER MD NOTE, PT NOT MEDICALLY CLEARED, REQUIRING IV VANCO DCP REMAINS STR AT [facility] VIA BLS
[2025-06-30 18:35] LABS: Creatinine Clr Calc Pharmacy 86.4; Estimated Glomerular Filt Rate > 60
--- NOTE | 2025-06-30 18:45 | HE.PHANOTE ---
Vancomycin addendum. Level was pulled early at 1800, originally scheduled for 2100. Schedule had been changed to q 24 hours, will keep current dose and schedule and recheck a level noel
[2025-06-30 19:51] VITALS: BP 116/73; PULSE 95; RESP 19; TEMP 36.8; O2SAT 97
[2025-07-01 04:00] VITALS: BP 104/67; PULSE 81; RESP 18; TEMP 36.7; O2SAT 97
[2025-07-01 07:24] LABS: Anion Gap 12 (12-20); Blood Urea Nitrogen 14 mg/dL (9-16); Calcium 7.7 mg/dL (8.4-10.2); Carbon Dioxide 23 mmol/L (22-29); Chloride 107 mmol/L (96-108); Creatinine Clr Calc Pharmacy 91.4; Estimated Glomerular Filt Rate > 60; Potassium 3.6 mmol/L (3.3-5.1); Sodium 138 mmol/L (135-145)
[2025-07-01 08:12] VITALS: BP 117/64; PULSE 91; RESP 18; TEMP 36.1; O2SAT 93
[2025-07-01] MEDS: PT OWN (Vibegron [Gemtesa] 75 mg tablet) 75 EACH PO (08:33)
[2025-07-01] MEDS: 0.9 % Sodium Chloride Flush 3 ML SYRINGE IVFLUSH ×2 (08:36→15:12)
[2025-07-01] MEDS: Thiamine HCL 100 MG in 0.9 % Sodium Chloride 100 ML 202 MG IV (08:37)
[2025-07-01 15:25] VITALS: BP 110/65; PULSE 90; RESP 15; TEMP 37.1; O2SAT 99
--- NOTE | 2025-07-01 15:38 | MHC.CM.PN ---
DP: PT HAS BEEN MEDICALLY CLEARED FOR DC TO SHORT TERM REHAB AT [facility]. BLS TRANSPORT BOOKED FOR 5: 30 PM VIA [facility]. RN AWARE. FINAL IMM ISSUED.
--- NOTE | 2025-07-01 16:25 | P.DS_ITS ---
DS: Providers Provider Date of Service: 07/01/25 Date of admission: 06/18/25 22:07 Date of discharge: 07/01/25 Primary care physician: Le Haddad DO Consults: 06/18/25 22:44 Consult to Gastroenterology Routine Consulting Provider: Krystle Ramos Reason for consultation: Liver failure, marked hyperbilirubinemia Has provider been notified: No 06/19/25 05:44 Addiction Medicine Provider Routine Consulting Provider: Addiction Covering Reason for consultation: Alcohol abuse 06/19/25 14:18 Addiction Medicine Provider Routine Consulting Provider: Addiction Covering Reason for consultation: etoh 06/21/25 08:26 Consult to General Surgery Routine Consulting Provider: [facility] Reason for consultation: Acute cholecystitis, cholelithiasis and choledocholithiasis Has provider been notified: No 06/30/25 10:47 Consult to Infectious Diseases Routine Consulting Provider: [facility] Reason for consultation: Resistant enterococcus UTI DS: Diagnosis Discharge Diagnosis (1) Alcoholic liver failure: Status: Acute (2) Esophagitis: Status: Acute (3) Ascites: Status: Acute DS: Summary Hospital Course Hospital Course: Reason for Admission 64-year-old female with a history of severe alcohol use disorder, alcoholic liver disease, heart failure with preserved ejection fraction (HFpEF), GERD, essential hypertension, and peripheral neuropathy, presenting with new-onset jaundice, dark urine, abdominal distention, and lower abdominal pain. Hospital Course ED Presentation (06/18/25): * Presented with several weeks of jaundice, new abdominal distention, and dark urine. * No significant abdominal pain, fever, or GI bleeding. * Noted to be actively drinking (1 bottle of wine daily). * Initial labs: macrocytic anemia, thrombocytopenia, elevated INR, marked hyperbilirubinemia (total bili 10.7), elevated transaminases (AST > ALT), elevated alkaline phosphatase, low albumin, hypokalemia, hypomagnesemia. * Imaging: CT abdomen/pelvis showed cirrhosis, ascites, cholelithiasis, segmental colonic wall thickening, and possible colitis. * Admitted for management of acute liver failure, possible alcoholic hepatitis, and evaluation of biliary pathology. Hospital Course: * Alcoholic Hepatitis/Liver Failure: * High Maddrey?s Discriminant Function (MDF > 32), MELD-Na 21?24, Child-Hernandez B. * Initiated on corticosteroids (IV methylprednisolone, transitioned to oral prednisone). * Monitored for infection, GI bleeding, and hepatic encephalopathy. * Serial LFTs and bilirubin monitored; bilirubin remained elevated (peak 14.6), with some improvement in transaminases. * GI and hepatology consulted; recommendations included continued steroids, diuretic therapy for ascites, and outpatient follow-up. * Alcohol Withdrawal: * Developed symptoms of withdrawal and delirium tremens (visual hallucinations, elevated CIWA). * Managed with phenobarbital protocol, thiamine, folic acid, and multivitamins. * Addiction medicine and social work consulted for ongoing support and rehabilitation planning. * Withdrawal symptoms resolved during hospitalization. * Ascites/Portal Hypertension: * Moderate ascites on imaging and exam. * Underwent therapeutic paracentesis (1.5 L removed); ascitic fluid negative for spontaneous bacterial peritonitis (SBP). * Started on low-dose diuretics (furosemide and spironolactone) after nutritional stabilization. * Sodium-restricted diet. * Biliary Disease: * Imaging (CT, US, MRCP) revealed cholelithiasis, choledocholithiasis, and possible acute cholecystitis. * No clinical or laboratory evidence of acute cholecystitis or cholangitis (afebrile, nontender RUQ, negative Darden?s sign, normal WBC). * Surgery consulted; no intervention required during this admission. * Colonic Wall Thickening: * Segmental thickening of the ascending colon noted on CT, concerning for colitis vs. malignancy. * Empiric antibiotics (ceftriaxone, metronidazole) initiated for possible stercoral colitis. * Plan for outpatient colonoscopy after stabilization. * Infectious Complications: * Developed UTI with Enterococcus faecium and Lilian albicans (urine culture). * Treated with IV vancomycin (Macrobid contraindicated due to liver failure). * No evidence of SBP on paracentesis. * Other Issues: * Macrocytic anemia (likely multifactorial: nutritional deficiency, chronic disease, possible GI blood loss). * Malnutrition and electrolyte disturbances (hypokalemia, hypomagnesemia) corrected. * GERD/esophagitis managed with PPI. * HFpEF and hypertension managed with carvedilol and diuretics as tolerated. Pertinent Hospital Events * Alcohol withdrawal/delirium tremens:?Resolved with phenobarbital protocol. * Therapeutic paracentesis:?1.5 L removed, no SBP. * No surgical intervention?for biliary disease during this admission. * UTI?treated with IV vancomycin. * Steroid therapy?for severe alcoholic hepatitis. * Nutritional support?and electrolyte repletion. Status at Discharge Cognitive/behavioral status at discharge: Discharge Condition * Alert, oriented, hemodynamically stable. * No acute distress, no active withdrawal symptoms. * Moderate ascites, persistent jaundice. * Ambulating independently. * No new complaints. Functional status at discharge: independent ambulation Overall status at discharge: patient is back to baseline Time Attestation Total time managing care of this patient today: 45 mintues. Discharge Coordination Time (in mins): 35 Quality: Safe Use of Opioids Does Pt have an Active Cancer Diagnosis on the Problem List?: No Quality: Stroke Does the patient have a stroke diagnosis?: No Physical Exam Vital Signs: Vital Signs: Last Vital Signs Temp 98.8 F 07/01/25 15:25 Pulse 90 07/01/25 15:25 Resp 15 07/01/25 15:25 BP 110/65 07/01/25 15:25 Pulse Ox 99 07/01/25 15:25 O2 Del Method Room Air 07/01/25 15:25 O2 Flow Rate 2 06/29/25 04:00 BMI result Body Mass Index 23.2 DS: Data Data Completed and Pending Completed studies during hospitalization [Text1]: Procedures Detoxification Services for Substance Abuse Treatment (03/20/25) Excision of Esophagus, Via Natural or Artificial Opening Endoscopic, Diagnostic (03/20/25) Excision of Stomach, Pylorus, Via Natural or Artificial Opening Endoscopic, Diagnostic (03/20/25) Extraction of Esophagus, Via Natural or Artificial Opening Endoscopic, Diagnostic (03/20/25) Labs on day of discharge: Laboratory Results - last 24 hr 06/30/25 06/30/25 07/01/25 18:11 18:12 06:32 Hold Purple Top SEE NOTE Sodium 138 Potassium 3.6 Chloride 107 Carbon Dioxide 23 Anion Gap 12 BUN 14 Creatinine 0.56 0.53 Estim Creat Clear Calc 86.4 91.4 Estimated GFR > 60 > 60 Random Glucose 93 Calcium 7.7 L D Random Vancomycin 12.2 L Preliminary micro results at discharge 06/27/25 13:55 Anaerobic Culture - Preliminary Ascites Fluid No growth to date. Discharge Plan Discharge Anticipated Discharge Date/Time: 07/01/25 16:27 Patient Disposition: Xfer Inpatient Rehab Fac Discharge Diagnosis: Alcoholic hepatitis with acute liver failure and cirrhosis (with ascites and hyperbilirubinemia), alcohol use disorder, resolved delirium tremens, acute cholecystitis with cholelithiasis and choledocholithiasis (no intervention required), UTI (Enterococcus faecium, treated), stercoral colitis, esophagitis, malnutrition, and electrolyte abnormalities. Referrals: [facility] [place] [Outside] - 1 Week Referral Note: TRANSFER FOR SHORT TERM REHAB Le Haddad DO [Primary Care Provider, Internal Medicine] - 1 Week Discharge Medications: New prednisone 10 mg tablet 40 mg PO DAILY Qty: 98 0RF Rx Instructions: Take 40mg (4 tabs) x2 weeks, then 30mg (3 tabs) x1 week, then 20mg (2 tabs) x1 week, then 10mg (1 tab) x1 week. omeprazole 20 mg Capsule,Delayed Release(Dr/Ec) 20 mg PO DAILY@0630 30 Days Qty: 30 0RF spironolactone 25 mg Tablet 25 mg PO DAILY 30 Days Qty: 30 0RF Protocol: Hold for SBP< HOLD for SBP < : 90 folic acid 1 mg Tablet 1 mg PO DAILY 30 Days Qty: 30 0RF furosemide 20 mg Tablet 20 mg PO DAILY 30 Days Qty: 30 0RF Protocol: Hold for SBP< HOLD for SBP < : 90 thiamine HCl (vitamin B1) 100 mg tablet 100 mg PO DAILY Qty: 30 0RF Continued Gemtesa 75 mg tablet 75 mg PO DAILY No Action omeprazole 20 mg Tablet,Delayed Release (Dr/Ec) 20 mg PO DAILY@0630 Discharge Orders: Discharge Order (Routine); Ordered 07/01/25 Ordered By: Haydee Edmondsno Diet: Advance to usual diet Activity on Discharge: As tolerated Stand Alone Forms: Patient Portal Discharge page Print Language: Thai Care Plan Goals: * Alcoholic hepatitis with acute liver failure and cirrhosis * Initiated corticosteroid therapy (prednisone) for severe alcoholic hepatitis (Maddrey?s >32, MELD >20). * Serial monitoring of LFTs, bilirubin, and coagulopathy. * GI and hepatology consultation for ongoing management and transplant evaluation. * Ascites/Portal Hypertension * Therapeutic paracentesis performed for symptomatic relief. * Initiated low-dose diuretics (furosemide and spironolactone) after nutritional stabilization. * Sodium-restricted diet. * Serial abdominal exams and monitoring for spontaneous bacterial peritonitis (SBP). * Alcohol withdrawal/Delirium tremens * Managed with phenobarbital protocol and CIWA monitoring. * Addiction medicine and social work consults for long-term abstinence planning. * Acute cholecystitis, cholelithiasis, choledocholithiasis * MRCP and surgical evaluation: no intervention required at this time. * Continued monitoring for signs of biliary obstruction or infection. * Stercoral colitis/Constipation * Empiric antibiotics (metronidazole, ceftriaxone) during acute phase. * Bowel regimen initiated and continued. * Malnutrition/Electrolyte abnormalities * Thiamine, folic acid, multivitamin supplementation. * Electrolyte repletion (K, Mg, Ca) as needed. * Nutrition consult and dietary support. * UTI (Enterococcus faecium, Lilian) * Treated with IV vancomycin (Macrobid contraindicated). * ID consult for resistant/complicated UTI Health Concerns: Health Concerns * Severe alcohol use disorder with recent withdrawal and delirium tremens * Acute on chronic liver failure (alcoholic hepatitis, cirrhosis, portal hypertension) * Refractory hyperbilirubinemia and coagulopathy * Recurrent ascites requiring paracentesis * Acute cholecystitis, cholelithiasis, and choledocholithiasis (no current surgical indication) * Stercoral colitis and risk for colonic complications * Malnutrition and vitamin deficiencies * Electrolyte disturbances (hypokalemia, hypomagnesemia, hypocalcemia) * Complicated UTI (Enterococcus faecium, Lilian) * Physical deconditioning and risk for falls * History of esophagitis, GERD, and prior GI bleeding * Underlying cardiac comorbidities (HFpEF, prior SD, cardiomyopathy) * Psychosocial factors: depression, social support, need for addiction rehabilitation Plan of Treatment: Plan of Treatment * Continue prednisone 40 mg PO daily for 2 weeks, then taper by 10 mg weekly over 4 weeks (per GI) * Continue low-dose diuretics (furosemide 20 mg and spironolactone 25 mg daily) for ascites * Monitor LFTs, bilirubin, INR, and renal function regularly * Serial abdominal exams; repeat paracentesis as clinically indicated * Maintain sodium-restricted, high-protein, low-volume diet; nutrition follow-up * Continue thiamine, folic acid, and multivitamin supplementation * Monitor and replete electrolytes (K, Mg, Ca) as needed * Complete course of IV vancomycin for UTI; ID follow-up * Continue bowel regimen for constipation; monitor for recurrence of colitis * Monitor for signs of hepatic encephalopathy, GI bleeding, or infection * VTE prophylaxis with enoxaparin * Full code status; fall precautions * Arrange outpatient follow-up with GI/hepatology and primary care * Refer to alcohol rehabilitation program upon stabilization * Social work and addiction medicine involvement for discharge planning and support Assessment: 64-year-old woman with severe alcohol use disorder, decompensated alcoholic cirrhosis, and multiple medical comorbidities admitted for acute liver failure, jaundice, and ascites. Hospital course was complicated by alcohol withdrawal, UTI, and persistent hyperbilirubinemia. Managed with steroids, diuretics, antibiotics, and supportive care. Discharged in stable condition with close outp atient follow-up and ongoing multidisciplinary care.
--- NOTE | 2025-07-01 16:25 | PM.DS ---
DS: Providers Provider Date of Service: 07/01/25 Date of admission: 06/18/25 22:07 Date of discharge: 07/01/25 Primary care physician: Le Haddad DO Consults: 06/18/25 22:44 Consult to Gastroenterology Routine Consulting Provider: Krystle Ramos Reason for consultation: Liver failure, marked hyperbilirubinemia Has provider been notified: No 06/19/25 05:44 Addiction Medicine Provider Routine Consulting Provider: [facility] Reason for consultation: Alcohol abuse 06/19/25 14:18 Addiction Medicine Provider Routine Consulting Provider: Addiction Covering Reason for consultation: etoh 06/21/25 08:26 Consult to General Surgery Routine Consulting Provider: [facility] Reason for consultation: Acute cholecystitis, cholelithiasis and choledocholithiasis Has provider been notified: No 06/30/25 10:47 Consult to Infectious Diseases Routine Consulting Provider: [facility] Reason for consultation: Resistant enterococcus UTI DS: Diagnosis Discharge Diagnosis (1) Alcoholic liver failure: Status: Acute (2) Esophagitis: Status: Acute (3) Ascites: Status: Acute DS: Summary Hospital Course Hospital Course: Reason for Admission 64-year-old female with a history of severe alcohol use disorder, alcoholic liver disease, heart failure with preserved ejection fraction (HFpEF), GERD, essential hypertension, and peripheral neuropathy, presenting with new-onset jaundice, dark urine, abdominal distention, and lower abdominal pain. Hospital Course ED Presentation (06/18/25): Presented with several weeks of jaundice, new abdominal distention, and dark urine. No significant abdominal pain, fever, or GI bleeding. Noted to be actively drinking (1 bottle of wine daily). Initial labs: macrocytic anemia, thrombocytopenia, elevated INR, marked hyperbilirubinemia (total bili 10.7), elevated transaminases (AST > ALT), elevated alkaline phosphatase, low albumin, hypokalemia, hypomagnesemia. Imaging: CT abdomen/pelvis showed cirrhosis, ascites, cholelithiasis, segmental colonic wall thickening, and possible colitis. Admitted for management of acute liver failure, possible alcoholic hepatitis, and evaluation of biliary pathology. Hospital Course: Alcoholic Hepatitis/Liver Failure: High Maddrey?s Discriminant Function (MDF > 32), MELD-Na 21?24, Child-Hernandez B. Initiated on corticosteroids (IV methylprednisolone, transitioned to oral prednisone). Monitored for infection, GI bleeding, and hepatic encephalopathy. Serial LFTs and bilirubin monitored; bilirubin remained elevated (peak 14.6), with some improvement in transaminases. GI and hepatology consulted; recommendations included continued steroids, diuretic therapy for ascites, and outpatient follow-up. Alcohol Withdrawal: Developed symptoms of withdrawal and delirium tremens (visual hallucinations, elevated CIWA). Managed with phenobarbital protocol, thiamine, folic acid, and multivitamins. Addiction medicine and social work consulted for ongoing support and rehabilitation planning. Withdrawal symptoms resolved during hospitalization. Ascites/Portal Hypertension: Moderate ascites on imaging and exam. Underwent therapeutic paracentesis (1.5 L removed); ascitic fluid negative for spontaneous bacterial peritonitis (SBP). Started on low-dose diuretics (furosemide and spironolactone) after nutritional stabilization. Sodium-restricted diet. Biliary Disease: Imaging (CT, US, MRCP) revealed cholelithiasis, choledocholithiasis, and possible acute cholecystitis. No clinical or laboratory evidence of acute cholecystitis or cholangitis (afebrile, nontender RUQ, negative Darden?s sign, normal WBC). Surgery consulted; no intervention required during this admission. Colonic Wall Thickening: Segmental thickening of the ascending colon noted on CT, concerning for colitis vs. malignancy. Empiric antibiotics (ceftriaxone, metronidazole) initiated for possible stercoral colitis. Plan for outpatient colonoscopy after stabilization. Infectious Complications: Developed UTI with Enterococcus faecium and Lilian albicans (urine culture). Treated with IV vancomycin (Macrobid contraindicated due to liver failure). No evidence of SBP on paracentesis. Other Issues: Macrocytic anemia (likely multifactorial: nutritional deficiency, chronic disease, possible GI blood loss). Malnutrition and electrolyte disturbances (hypokalemia, hypomagnesemia) corrected. GERD/esophagitis managed with PPI. HFpEF and hypertension managed with carvedilol and diuretics as tolerated. Pertinent Hospital Events Alcohol withdrawal/delirium tremens:?Resolved with phenobarbital protocol. Therapeutic paracentesis:?1.5 L removed, no SBP. No surgical intervention?for biliary disease during this admission. UTI?treated with IV vancomycin. Steroid therapy?for severe alcoholic hepatitis. Nutritional support?and electrolyte repletion. Status at Discharge Cognitive/behavioral status at discharge: Discharge Condition Alert, oriented, hemodynamically stable. No acute distress, no active withdrawal symptoms. Moderate ascites, persistent jaundice. Ambulating independently. No new complaints. Functional status at discharge: independent ambulation Overall status at discharge: patient is back to baseline Time Attestation Total time managing care of this patient today: 45 mintues. Discharge Coordination Time (in mins): 35 Quality: Safe Use of Opioids Does Pt have an Active Cancer Diagnosis on the Problem List?: No Quality: Stroke Does the patient have a stroke diagnosis?: No Physical Exam Vital Signs: Vital Signs: Last Vital Signs Temp 98.8 F 07/01/25 15:25 Pulse 90 07/01/25 15:25 Resp 15 07/01/25 15:25 BP 110/65 07/01/25 15:25 Pulse Ox 99 07/01/25 15:25 O2 Del Method Room Air 07/01/25: O2 Flow Rate 2 06/29/25 04:00 BMI result Body Mass Index 23.2 DS: Data Data Completed and Pending Completed studies during hospitalization [Text1]: Procedures Detoxification Services for Substance Abuse Treatment (03/20/25) Excision of Esophagus, Via Natural or Artificial Opening Endoscopic, Diagnostic (03/20/25) Excision of Stomach, Pylorus, Via Natural or Artificial Opening Endoscopic, Diagnostic (03/20/25) Extraction of Esophagus, Via Natural or Artificial Opening Endoscopic, Diagnostic (03/20/25) Labs on day of discharge: Laboratory Results - last 24 hr 06/30/25 06/30/25 07/01/25 18:11 18:12 06:32 Hold Purple Top SEE NOTE Sodium 138 Potassium 3.6 Chloride 107 Carbon Dioxide 23 Anion Gap 12 BUN 14 Creatinine 0.56 0.53 Estim Creat Clear Calc 86.4 91.4 Estimated GFR > 60 > 60 Random Glucose 93 Calcium 7.7 L D Random Vancomycin 12.2 L Preliminary micro results at discharge 06/27/25 13:55 Anaerobic Culture - Preliminary Ascites Fluid No growth to date. Discharge Plan Discharge Anticipated Discharge Date/Time: 07/01/25 16:27 Patient Disposition: Xfer Inpatient Rehab Fac Discharge Diagnosis: Alcoholic hepatitis with acute liver failure and cirrhosis (with ascites and hyperbilirubinemia), alcohol use disorder, resolved delirium tremens, acute cholecystitis with cholelithiasis and choledocholithiasis (no intervention required), UTI (Enterococcus faecium, treated), stercoral colitis, esophagitis, malnutrition, and electrolyte abnormalities. Referrals: [facility] [place] [Outside] - 1 Week Referral Note: TRANSFER FOR SHORT TERM REHAB Le Haddad DO [Primary Care Provider, Internal Medicine] - 1 Week Discharge Medications: New prednisone 10 mg tablet 40 mg PO DAILY Qty: 98 0RF Rx Instructions: Take 40mg (4 tabs) x2 weeks, then 30mg (3 tabs) x1 week, then 20mg (2 tabs) x1 week, then 10mg (1 tab) x1 week. omeprazole 20 mg Capsule,Delayed Release(Dr/Ec) 20 mg PO DAILY@0630 30 Days Qty: 30 0RF spironolactone 25 mg Tablet 25 mg PO DAILY 30 Days Qty: 30 0RF Protocol: Hold for SBP< HOLD for SBP < : 90 folic acid 1 mg Tablet 1 mg PO DAILY 30 Days Qty: 30 0RF furosemide 20 mg Tablet 20 mg PO DAILY 30 Days Qty: 30 0RF Protocol: Hold for SBP< HOLD for SBP < : 90 thiamine HCl (vitamin B1) 100 mg tablet 100 mg PO DAILY Qty: 30 0RF Continued Gemtesa 75 mg tablet 75 mg PO DAILY No Action omeprazole 20 mg Tablet,Delayed Release (Dr/Ec) 20 mg PO DAILY@0630 Discharge Orders: Discharge Order (Routine); Ordered 07/01/25 Ordered By: Haydee Edmondson Diet: Advance to usual diet Activity on Discharge: As tolerated Stand Alone Forms: Patient Portal Discharge page Print Language: Urdu Care Plan Goals: Alcoholic hepatitis with acute liver failure and cirrhosis Initiated corticosteroid therapy (prednisone) for severe alcoholic hepatitis (Maddrey?s >32, MELD >20). Serial monitoring of LFTs, bilirubin, and coagulopathy. GI and hepatology consultation for ongoing management and transplant evaluation. Ascites/Portal Hypertension Therapeutic paracentesis performed for symptomatic relief. Initiated low-dose diuretics (furosemide and spironolactone) after nutritional stabilization. Sodium-restricted diet. Serial abdominal exams and monitoring for spontaneous bacterial peritonitis (SBP). Alcohol withdrawal/Delirium tremens Managed with phenobarbital protocol and [place] monitoring. Addiction medicine and social work consults for long-term abstinence planning. Acute cholecystitis, cholelithiasis, choledocholithiasis MRCP and surgical evaluation: no intervention required at this time. Continued monitoring for signs of biliary obstruction or infection. Stercoral colitis/Constipation Empiric antibiotics (metronidazole, ceftriaxone) during acute phase. Bowel regimen initiated and continued. Malnutrition/Electrolyte abnormalities Thiamine, folic acid, multivitamin supplementation. Electrolyte repletion (K, Mg, Ca) as needed. Nutrition consult and dietary support. UTI (Enterococcus faecium, Lilian) Treated with IV vancomycin (Macrobid contraindicated). ID consult for resistant/complicated UTI Health Concerns: Health Concerns Severe alcohol use disorder with recent withdrawal and delirium tremens Acute on chronic liver failure (alcoholic hepatitis, cirrhosis, portal hypertension) Refractory hyperbilirubinemia and coagulopathy Recurrent ascites requiring paracentesis Acute cholecystitis, cholelithiasis, and choledocholithiasis (no current surgical indication) Stercoral colitis and risk for colonic complications Malnutrition and vitamin deficiencies Electrolyte disturbances (hypokalemia, hypomagnesemia, hypocalcemia) Complicated UTI (Enterococcus faecium, Lilian) Physical deconditioning and risk for falls History of esophagitis, GERD, and prior GI bleeding Underlying cardiac comorbidities (HFpEF, prior LA, cardiomyopathy) Psychosocial factors: depression, social support, need for addiction rehabilitation Plan of Treatment: Plan of Treatment Continue prednisone 40 mg PO daily for 2 weeks, then taper by 10 mg weekly over 4 weeks (per GI) Continue low-dose diuretics (furosemide 20 mg and spironolactone 25 mg daily) for ascites Monitor LFTs, bilirubin, INR, and renal function regularly Serial abdominal exams; repeat paracentesis as clinically indicated Maintain sodium-restricted, high-protein, low-volume diet; nutrition follow-up Continue thiamine, folic acid, and multivitamin supplementation Monitor and replete electrolytes (K, Mg, Ca) as needed Complete course of IV vancomycin for UTI; ID follow-up Continue bowel regimen for constipation; monitor for recurrence of colitis Monitor for signs of hepatic encephalopathy, GI bleeding, or infection VTE prophylaxis with enoxaparin Full code status; fall precautions Arrange outpatient follow-up with GI/hepatology and primary care Refer to alcohol rehabilitation program upon stabilization Social work and addiction medicine involvement for discharge planning and support Assessment: 64-year-old woman with severe alcohol use disorder, decompensated alcoholic cirrhosis, and multiple medical comorbidities admitted for acute liver failure, jaundice, and ascites. Hospital course was complicated by alcohol withdrawal, UTI, and persistent hyperbilirubinemia. Managed with steroids, diuretics, antibiotics, and supportive care. Discharged in stable condition with close outpatient follow-up and ongoing multidisciplinary care.
== END 2025-07-01 18:36 | DRG 433 ==
LOC: HO.ED 21:45 → HO.EDOVER 22:09 → HO.S3 06-19 12:05
PROVIDERS: Internal Medicine; Admitting Provider Internal Medicine; Emergency Provider Student in an Organized Health Care Education/Training Program; PCP Family Medicine; Visit Provider Hospitalist
DX: K70.40 Alcoholic hepatic failure without coma (principal); C18.9 Malignant neoplasm of colon, unspecified; D61.818 Other pancytopenia; I50.32 Chronic diastolic (congestive) heart failure; K76.6 Portal hypertension; Z16.11 Resistance to penicillins; Z16.23 Resistance to quinolones and fluoroquinolones; K80.62 Calculus of gallbladder and bile duct with acute cholecystitis without obstruction; F10.131 Alcohol abuse with withdrawal delirium; E44.0 Moderate protein-calorie malnutrition; N39.0 Urinary tract infection, site not specified; Y90.4 Blood alcohol level of 80-99 mg/100 ml; E83.42 Hypomagnesemia; E87.6 Hypokalemia; K70.31 Alcoholic cirrhosis of liver with ascites; D53.9 Nutritional anemia, unspecified; K59.00 Constipation, unspecified; B95.2 Enterococcus as the cause of diseases classified elsewhere; K70.11 Alcoholic hepatitis with ascites; I11.0 Hypertensive heart disease with heart failure; K52.89 Other specified noninfective gastroenteritis and colitis; G62.1 Alcoholic polyneuropathy; K21.9 Gastro-esophageal reflux disease without esophagitis; Z68.23 Body mass index [BMI] 23.0-23.9, adult; Z79.899 Other long term (current) drug therapy
CPT/HCPCS: 36415; 49083; 74177; 74181; 76705; 80048; 80051; 80053; 80076; 80202; 80307; 81001; 81003; 82010; 82042; 82140; 82272; 82306; 82565; 82607; 82728; 82746; 82945; 82977; 83540; 83615; 83690; 83735; 84132; 84157; 85025; 85027; 85045; 85610; 86704; 86706; 86709; 86803; 87070; 87073; 87086; 87088; 87186; 87205; 87340; 89051; 97162; 97530; 99285; J0696; J1836; J2003; J2405; J2470; J2560; J2919; J3374; J3411; J3475; J3480; J7120; Q9967; S9485

== ENCOUNTER → 2025-06-18 17:20 | Outpatient (BNV) | payer MEDICARE, MEDICAID, SELFPAY | PROVIDERS: Emergency Provider Student in an Organized Health Care Education/Training Program; PCP Family Medicine; Visit Provider Radiology Diagnostic Radiology | DX: R10.30 Lower abdominal pain, unspecified (principal); R18.8 Other ascites | CPT/HCPCS: 74177 ==

== ENCOUNTER 2025-06-18 22:07 | Outpatient (BNV) | payer MEDICARE, MEDICAID, SELFPAY | END 2025-06-25 10:13 | PROVIDERS: Admitting Provider Internal Medicine; Emergency Provider Student in an Organized Health Care Education/Training Program; PCP Family Medicine; Visit Provider Radiology Diagnostic Radiology | DX: R18.8 Other ascites (principal) | CPT/HCPCS: 76705 ==

== ENCOUNTER 2025-06-18 22:07 | Outpatient (BNV) | payer MEDICARE, MEDICAID, SELFPAY | END 2025-06-20 12:15 | PROVIDERS: Admitting Provider Internal Medicine; Emergency Provider Student in an Organized Health Care Education/Training Program; PCP Family Medicine; Visit Provider Radiology Diagnostic Radiology | DX: K80.20 Calculus of gallbladder without cholecystitis without obstruction (principal); K80.50 Calculus of bile duct without cholangitis or cholecystitis without obstruction; K76.0 Fatty (change of) liver, not elsewhere classified; K44.9 Diaphragmatic hernia without obstruction or gangrene | CPT/HCPCS: 74181 ==

== ENCOUNTER 2025-06-18 22:07 | Outpatient (BNV) | payer MEDICARE, MEDICAID, SELFPAY | END 2025-06-27 13:50 | PROVIDERS: Admitting Provider Internal Medicine; Emergency Provider Student in an Organized Health Care Education/Training Program; PCP Family Medicine; Visit Provider Radiology Diagnostic Radiology | DX: R18.8 Other ascites (principal) | CPT/HCPCS: 49083 ==

== ENCOUNTER 2025-06-18 22:07 | Outpatient (BNV) | payer MEDICARE, MEDICAID, SELFPAY | END 2025-06-19 08:21 | PROVIDERS: Admitting Provider Internal Medicine; Emergency Provider Student in an Organized Health Care Education/Training Program; PCP Family Medicine; Visit Provider Radiology Diagnostic Radiology | DX: K80.20 Calculus of gallbladder without cholecystitis without obstruction (principal); K76.0 Fatty (change of) liver, not elsewhere classified; R18.8 Other ascites | CPT/HCPCS: 76705 ==

== ENCOUNTER → 2025-06-18 22:07 | Outpatient (BNV) | payer MEDICARE, MEDICAID, SELFPAY | PROVIDERS: Admitting Provider Internal Medicine; Emergency Provider Student in an Organized Health Care Education/Training Program; PCP Family Medicine; Visit Provider Internal Medicine Gastroenterology | DX: K70.40 Alcoholic hepatic failure without coma (principal); K20.90 Esophagitis, unspecified without bleeding; K70.31 Alcoholic cirrhosis of liver with ascites | CPT/HCPCS: 99232 ==

== ENCOUNTER → 2025-06-18 22:07 | Outpatient (BNV) | payer MEDICARE, MEDICAID, SELFPAY | PROVIDERS: Admitting Provider Internal Medicine; Emergency Provider Student in an Organized Health Care Education/Training Program; PCP Family Medicine; Visit Provider Internal Medicine | DX: F10.90 Alcohol use, unspecified, uncomplicated (principal); F10.931 Alcohol use, unspecified with withdrawal delirium; Z86.79 Personal history of other diseases of the circulatory system; K20.90 Esophagitis, unspecified without bleeding; K70.40 Alcoholic hepatic failure without coma; K81.0 Acute cholecystitis; K80.50 Calculus of bile duct without cholangitis or cholecystitis without obstruction; K52.89 Other specified noninfective gastroenteritis and colitis; K70.31 Alcoholic cirrhosis of liver with ascites; R17 Unspecified jaundice; W19.XXXA Unspecified fall, initial encounter; R53.81 Other malaise | CPT/HCPCS: 99232 ==

== ENCOUNTER → 2025-06-18 22:07 | Outpatient (BNV) | payer MEDICARE, MEDICAID, SELFPAY | PROVIDERS: Admitting Provider Internal Medicine; Emergency Provider Student in an Organized Health Care Education/Training Program; PCP Family Medicine; Visit Provider Surgery | DX: K70.31 Alcoholic cirrhosis of liver with ascites (principal); F10.90 Alcohol use, unspecified, uncomplicated | CPT/HCPCS: 99222 ==

== ENCOUNTER 2025-08-11 08:05 | Outpatient (REF) | payer MEDICARE, MEDICAID, SELFPAY ==
--- NOTE | ~2025-08-11 | US_ITS ---
CLINICAL HISTORY: R14.0 - Abdominal distension (gaseous)Alcohol use disorder US abdomen complete Comparison: US/SR - US ABDOMEN LIMITED - 06/25/2025 10:12 AM EDT Findings: The liver is echogenic and heterogeneous although without focal lesions or intrahepatic biliary dilatation. The gallbladder is nondistended. Gallbladder wall not thickened at 3 mm. Common bile duct nondilated at 5 mm. There no pericholecystic fluid or gallstones. Pancreas and aorta unremarkable to the visualized extended. The spleen is borderline prominent at 11.4 cm. No focal splenic lesions are seen. The right kidney measures 10.6 cm and the left kidney measures 10.7 cm. No cortical renal lesions or signs of obstructive uropathy. IMPRESSION: Findings in the liver compatible with some degree of hepatocellular disease. Otherwise no acute sonographic abnormality in the abdomen. This document has been electronically signed by: Abhinav Orozco MD on 08/11/2025 13:03:32
== END 2025-08-11 08:06 | disposition home or self-care (01) ==
LOC: HO.US 08:05
PROVIDERS: PCP Family Medicine; Visit Provider Urology
DX: R14.0 Abdominal distension (gaseous) (principal); F10.90 Alcohol use, unspecified, uncomplicated
CPT/HCPCS: 76700

== ENCOUNTER → 2025-08-11 08:08 | Outpatient (BNV) | payer MEDICARE, MEDICAID, SELFPAY | PROVIDERS: PCP Family Medicine; Visit Provider Radiology Diagnostic Radiology | DX: R14.0 Abdominal distension (gaseous) (principal) | CPT/HCPCS: 76700 ==

== ENCOUNTER 2025-08-18 10:56 | Outpatient (REF) | payer MEDICARE, MEDICAID, SELFPAY ==
[2025-08-18 14:10] LABS: Alanine Aminotransferase 25 U/L (0-31); Albumin Level 3.9 g/dL (3.5-5.0); Alkaline Phosphatase 90 U/L (39-117); Anion Gap 12 (12-20); Aspartate Amino Transferase 47 U/L (5-31); Blood Urea Nitrogen 14 mg/dL (9-16); Calcium 10.3 mg/dL (8.4-10.2); Carbon Dioxide 28 mmol/L (22-29); Chloride 98 mmol/L (96-108); Estimated Glomerular Filt Rate > 60; Potassium 4.4 mmol/L (3.3-5.1); Sodium 134 mmol/L (135-145); Total Protein 7.3 g/dL (6.5-8.0)
== END 2025-08-18 10:57 | disposition home or self-care (01) ==
LOC: HO.HHCL 10:56
PROVIDERS: PCP Family Medicine; Visit Provider Internal Medicine
DX: E11.65 Type 2 diabetes mellitus with hyperglycemia (principal); I42.6 Alcoholic cardiomyopathy; F10.20 Alcohol dependence, uncomplicated; Z79.4 Long term (current) use of insulin
CPT/HCPCS: 36415; 80053; 82248